=== PATIENT | male | born 1940 | race Caucasian/White ===

== ENCOUNTER 2023-06-21 01:36 | Inpatient (IN) | payer MEDICARE, SELFPAY ==
[2023-06-20 21:12] VITALS: BP 111/63
[2023-06-20 21:18] VITALS: BMI 23.0
[2023-06-20 22:00] VITALS: BP 122/64
[2023-06-20 22:27] LABS: % Basophils 0.5 % (0-2); % Eosinophils 0.9 % (0-6); % Lymphocytes 9.4 % (20.5-51.1); % Monocytes 4.9 % (1.7-9.3); % Neutrophils 83.3 % (42.2-75.2); Absolute Basophils 0.1 10^3/uL (0-0.2); Absolute Eosinophils 0.1 10^3/uL (0-0.7); Absolute Immature Granulocytes 0.1 10^3/uL (0-0.05); Absolute Lymphocytes 1.4 10^3/uL (1.2-3.4); Absolute Monocytes 0.7 10^3/uL (0.1-0.6); Hemoglobin 8.4 g/dL (13.0-18.0); Mean Corpuscular Hgb 28.4 pg (27.0-31.0); Mean Corpuscular Volume 81.1 fL (80.0-94.0); Nucleated Red Blood Cells % 0.1 % (-); Platelet Count 110 10^3/uL (130-400); Red Blood Cell Count 2.96 10^6/uL (4.70-6.10); Red Cell Dist. Width 17.1 % (11.5-14.5); White Blood Cell Count 14.4 10^3/uL (4.8-10.8)
[2023-06-20 22:49] LABS: ALT (SGPT) 27 U/L (0-50); AST (SGOT) 38 U/L (17-59); Alkaline Phosphatase 93 U/L (38-126); Blood Urea Nitrogen 95 mg/dl (9-20); Calcium 9.3 mg/dl (8.4-10.2); Carbon Dioxide 14 mmol/L (22-30); Chloride 100 mmol/L (98-107); Estimated Creatinine Clearance 16 ml/min; Glucose 128 mg/dl (70-99); Magnesium 2.8 mg/dl (1.6-2.3); Sodium 135 mmol/L (135-145); Total Protein 6.2 g/dl (6.3-8.2); eGFR 15.63
[2023-06-20 23:00] VITALS: BP 113/55
--- NOTE | 2023-06-20 23:19 | ED.GENMED ---
History of Present Illness
General
Chief Complaint: Weakness
Source: patient and family (Daughter)
Exam Limitations: none
Time Seen by Provider: 06/20/23 21:33
Nursing documentation reviewed up to this point in time: agreed with
Travel History
Have you had any contact with someone who has COVID-19?: No
Do you have any symptoms of coronavirus? Fever > 100 degrees, chills, cough, shortness of breath, sore throat, loss of taste or smell, muscle aches, or headache?: No
History of Present Illness
History of Present Illness:
83-year-old male with extensive medical history as documented recent admission for sepsis secondary to pneumonia who presents to the emergency room for evaluation of abdominal pain, weakness, rectal bleeding. Patient was seen earlier today for
lower abdominal discomfort and constipation. He was found to have a fecal impaction on exam and was disimpacted and then treated with an enema. There was some scant blood mixed with the stool and he was disimpacted but no heavy bleeding. He was
discharged on bowel regimen. He says that when he went home he noticed he was continue to have some leakage of stool and scant amount of blood from his rectum. He says that he has been feeling very weak and shaky. He says that he is still having
some lower abdominal pain on the left side. He came back to the emergency room to be assessed. Has not had any nausea or vomiting. No chest pain or shortness of breath, no palpitations. No lightheadedness. He has not had any fevers. He is on
Coumadin.
Past History
Past History
ED Past Medical History: Arrthythmia (Atrial fibrillation), CAD, Cancer (CLL ( Lymphocytic Leukemia)), COPD, HTN, Hypercholesterolemia, NIDDM, CA, Renal failure and Other (Anemia, PNA, Hernia, Bleeding gums, PNA)
ED Past Surgical History: Cardiac (Stents X2)
Social History
Tobacco: Former smoker
Alcohol: None
Drug: None
Personal:
Living: with family
Employment: Not employed
Family History
Family History: CAD
Review of Systems
Review of Systems
All Other Systems: ROS reviewed and negative except as documented in HPI and ROS
Constitutional: Reports fatigue; Denies fever or chills
Respiratory: Denies cough or trouble breathing
Cardiac: Denies chest pain, palpitations or syncope
ABD/GI: Reports abdominal pain and bloody stools (Small amount of blood in stool leaking from rectum); Denies nausea, vomiting or diarrhea
: Denies flank pain
Musculoskeletal: Denies neck pain or back pain
Neurological: Reports weakness (Generalized weakness); Denies headache or numbness
Phy Exam
Physical Exam
Physical Exam:
General: Awake, alert, oriented x3
Head: Normocephalic, atraumatic
Eyes: Conjunctiva normal
Throat: Airway intact, handling secretions
Neck: Trachea midline, supple without meningismus
Lungs: Clear to auscultation bilaterally, no wheezing, rales, rhonchi
Heart: Regular rate and rhythm, no murmurs, gallops, or rubs
Abd: Soft, non distended, tender to palpation left lower quadrant
Rectal: Patient has a stage II sacral decubitus wound with no signs of infection; he has brown stool mixed with some scant amount of red blood in the rectal vault
Neuro: Generally weak but no focal motor or sensory deficits; no gross cranial nerve deficits, speech is fluid with no dysarthria or aphasia
Skin: Sacral wound as above
Extremities: No edema in extremities, warm and well-perfused
Scores
Heart Failure Risk
Heart Failure Risk Score: Not Applicable
Heart Score for Chest Pain Patients
STEMI patient?: Not applicable
Withdrawal Assessment of Alcohol
Withdrawal Assessment Completed?: Not applicable
Course
Orders/Labs/Results
Orders:
Orders
06/20/23 22:20
Complete Blood Count/With Diff Urgent
Comprehensive Metabolic Panel Urgent
Magnesium Urgent
06/20/23 23:02
Electrocardiogram (*1) Urgent
Reason for Study: Fatigue / Weakness
EKG- Treatment ONCE
06/20/23 23:05
CT Abd/pel Without Iv Or Oral Urgent
Comment:
Reason For Exam: LLQ pain
0.9% Sodium Chloride 1000 ml [Nss] 1,000 ml IV BOLUS
06/20/23 23:36
Prothrombin Time Urgent
06/21/23 00:05
CefTRIAXone [Rocephin] 1,000 mg IV NOW STA
MetroNIDAZOLE 500 MG/100 ML [Flagyl 500 mg] 100 ml IV NOW
06/21/23 00:15
Blood Culture Q30M
GERALD Source: Blood/Venous
Specimen Description:
06/21/23 00:45
Blood Culture Q30M
GERALD Source: Blood/Venous
Specimen Description:
Abnormal Lab Results
06/20/23 06/20/23
22:20 23:36
WBC 14.4 H 10^3/uL
(4.8-10.8)
RBC 2.96 L 10^6/uL
(4.70-6.10)
Hgb 8.4 L g/dL
(13.0-18.0)
Hct 24.0 L %
(39.0-52.0)
RDW 17.1 H %
(11.5-14.5)
Plt Count 110 L 10^3/uL
(130-400)
Abs Immat Gran (auto) 0.1 H 10^3/uL
(0-0.05)
Absolute Neuts (auto) 12.0 H 10^3/uL
(1.4-6.5)
Absolute Monos (auto) 0.7 H 10^3/uL
(0.1-0.6)
Immature Gran % 1.0 H %
(0-0.5)
Neutrophils % 83.3 H %
(42.2-75.2)
Lymphocytes % 9.4 L %
(20.5-51.1)
PT 31.0 H Sec
(11.4-14.6)
Carbon Dioxide 14 L* mmol/L
(22-30)
BUN 95 H mg/dl
(9-20)
Creatinine 3.7 H mg/dL
(0.7-1.3)
Glucose 128 H mg/dl
(70-99)
Magnesium 2.8 H mg/dl
(1.6-2.3)
Total Protein 6.2 L g/dl
(6.3-8.2)
06/20/23 22:20
06/20/23 22:20
Vital Signs
Initial and Last Documented VS:
Initial Vital Signs
Temp Pulse Resp BP Pulse Ox
37.3 C 82 15 111/63 96
06/20/23 21:12 06/20/23 21:12 06/20/23 21:12 06/20/23 21:12 06/20/23 21:12
Last Documented Vital Signs
Temp Pulse Resp BP Pulse Ox
37.3 C 82 22 113/55 95
06/20/23 21:12 06/20/23 23:15 06/20/23 23:15 06/20/23 23:00 06/20/23 23:15
MDM/Problems Addressed
Differential Diagnosis Includes:
Differential diagnosis for generalized weakness is wide includes in this case includes but not limited to: electrolyte derangement/dehydration, vagal stimulation related to disimpaction, infection such as diverticulitis or UTI, anemia/GI bleeding
MDM/Problems Addressed:
83-year-old male presents for evaluation of generalized weakness and shakiness continued leakage of stool scant amount of blood from rectum after disimpaction today. He is still having some left lower quadrant abdominal pain as well. Vital signs
here within normal limits. Exam as above. Plan to place an IV check labs including CBC and a CMP, coags, type and screen. Will check CT of the abdomen pelvis. Check an EKG. Provide fluids. Monitor closely reassess after the above.
Initial labs reviewed: CBC shows leukocytosis to 14 increased from earlier today. Hemoglobin 8.4 stable. CMP shows metabolic acidosis with a bicarb of 14 possibly related to GI losses he has been having diarrhea/loose stools since disimpaction,
also some element of uremia. Creatinine 3.7 which is increased from baseline. Awaiting results of CT.
CT shows sigmoid colitis�presumably stercoral colitis. Given his leukocytosis and weakness will cover with Rocephin and Flagyl. Will admit for colitis, GER, metabolic acidosis. Discussed with hospitalist for admission.
Chronic conditions affecting care:
A-fib on Coumadin which complicates rectal bleed
*Radiology
Radiology exam reviewed: radiology read reviewed
*Pulse Oximetry
Patient hypoxic: no
*EKG
Interpreted by ED Provider?: Yes
Comparison EKG: no changes
Heart Rate: 81
Rate: normal
Rhythm: sinus
Lawrence: normal axis
Interval: normal interval
QRS Pattern: right bundle branch block
Ischemia: no ischemia
*Critical Care Note
Total Time (30-74mins, 75-104mins- exclusive of procedures): Not Applicable
Data Reviewed
Review of Other/Old Records Reveals: Labs and Records
Source: patient, records and family (Daughter)
Patient Management
Discussion with other providers: Hospitalist (Discussed with hospitalist)
Escalation/DeEscalation of care consider admission/obs:
Admission indicated
ED Attending Note
-
Portions of this chart may have been created with voice recognition software.� Occasional wrong word or��sound alike� substitutions may have occurred due to the inherent limitations of voice recognition software.
Discharge Plan
Departure
Patient Disposition: Admit
Date of Disposition: 06/21/23
Time of Disposition: 00:06
Admit to doctor: Gianni
Presentation/result/management discussed w/ accepting MD/DO: Hospitalist
Discharge Problem:
Acute kidney injury, Metabolic acidosis, Stercoral colitis
Prescriptions:
No Action
ipratropium-albuterol 3 ML solution for nebulization
3 ml inhalation R BID PRN (Reason: Lung/Breathing Issues)
mupirocin 1 APPLIC ointment
1 applic topical DAILYPRN PRN (Reason: scalp and cheek )
Patient Comments:
Apply to top of scalp
multivitamin with folic acid [Tab-A-Gualberto] 1 TABLET tablet
1 tab PO DAILY
guaifenesin 400 MG tablet
600 mg PO BID
acetaminophen [Tylenol Extra Strength] 500 MG tablet
1,000 mg PO Q6HPRN PRN (Reason: mild pain)
rosuvastatin 5 MG tablet
5 mg PO HS
nitroglycerin [Nitro-Dur] 0.6 mg/hr Patch 24 Hour
1 patch TRANSDERMAL DAILY Qty: 0
ferrous sulfate 325 mg (65 mg iron) Tablet
325 mg PO QPM Qty: 0
gabapentin 100 mg Capsule
100 mg PO BID
finasteride 5 mg Tablet
5 mg PO QPM
febuxostat 40 mg Tablet
40 mg PO DAILY
metoprolol succinate 25 mg Tablet Extended Release 24 Hr
25 mg PO DAILY Qty: 30 0RF
dapagliflozin propanediol [Farxiga] 5 mg Tablet
5 mg PO DAILY Qty: 30 0RF
amlodipine 10 mg Tablet
10 mg PO DAILY Qty: 30 0RF
budesonide [Pulmicort] 0.5 mg/2 mL Suspension For Nebulization
0.5 mg INHALATION DAILY PRN (Reason: Lung/Breathing Issues)
amiodarone 200 mg tablet
200 mg PO DAILY Qty: 30 0RF
Patient Comments:
06/20/2023: Pt states he hasnt started this yet.
furosemide [Lasix] 40 mg tablet
40 mg PO DAILY Qty: 30 0RF
nitroglycerin 0.3 mg tablet, sublingual
0.3 mg sublingual [id number] PRN (Reason: chest pain)
aspirin 81 mg Tablet,Delayed Release (Dr/Ec)
81 mg PO DAILY
warfarin 3 mg Tablet
3 mg PO QPM
Rx Instructions:
taken w/ 0.5mg = 3.5mg
metoprolol succinate 25 mg tablet extended release 24 hr
12.5 mg PO HS
warfarin 1 mg Tablet
0.5 mg PO QPM
Rx Instructions:
taken w/ 3mg = 3.5mg
colchicine 0.6 mg Tablet
0.6 mg PO DAILY PRN (Reason: gout)
Jakafi 20 mg tablet
20 mg PO DAILY
Referrals:
Rob Santos MD [Family Provider] -
Interventions
Interventions:
*General Assessment Last Done: 06/20/23 21:18
ED- Fall Risk Assessment Last Done: 06/20/23 21:18
*ED COVID-19 Vaccine History Last Done: 06/20/23 21:18
ED- Cardiac Assessment Last Done: 06/20/23 21:18
ED- Neurological Assessment Last Done: 06/20/23 21:18
ED- Pulmonary Assessment Last Done: 06/20/23 21:18
[2023-06-20] MEDS: NSS 1000 IV (23:22)
[2023-06-20 23:56] LABS: INR 2.92
[2023-06-21] VITALS (13 sets, daily range): BP systolic 91–123; BP diastolic 46–77; PULSE 66–68; O2SAT 94–96; BMI 21.7
--- NOTE | 2023-06-21 00:21 | HPS.HSE ---
Family Physician
-
Family Physician: Rob Santos
Chief Complaint
-
abdominal pain
History of Present Illness
Mr. Enrique Matthews is a 83 yo man with hx CLL, CKD, ischemic cardiomyopathy, HFpEF, paroxysmal afib on coumadin, BPH, recent admission 06/02/23-06/13/23 for sepsis secondary to multifocal pneumonia, ER visit earlier today for constipation s/p
disimpaction and enema returns to the ER this evening for abdominal pain, weakness and small amount of BRBPR.
Patient states he had abdominal pain this morning relieved by disimpaction. He went home post ER and had continual leakage. He also felt shakey. He did not eat a lot today because he was fasting for AM labs. He states he tried to stay hydrated.
No nausea/vomiting. No diarrhea. Currently denies abdominal pain.
No fevers/chills. + chronic chest pain with exertion (known residual CAD). No LE swelling. He does not weight himself daily.
Medical History
Past Medical History
Past Medical History: Reports Other (hypertension, hyperlipidemia, diabetes mellitus type 2, atrial fibrillation, CLL, IgG deficiency, CAD, polycythemia vera, BPH, ABELARDO, CKD, myelofibrosis, gout, COPD, monoclonal gammopathy of uncertain significance,
anemia, history hematuria in the past, history of cognitive decline,)
Past Surgical History: Reports None (Recently)
Social History
Tobacco: Non-smoker
Alcohol: None
Drug: None
Family History
Family History: Other (Premature CAD in his mother)
Allergies / Home Medications
Allergies reflects when Allergies were last updated in [employer].
Home Medications with original date entered in [employer]
Allergy/Medication List:
Allergies
Allergy/AdvReac Type Severity Reaction Status Date / Time
atorvastatin Allergy ? M-S pain Verified 06/20/23 12:01
immune globulin,gamma (IgG) Allergy Anaphylaxis Verified 06/20/23 12:01
human
prednisone Allergy Unknown Verified 06/20/23 12:01
Home Medications
ipratropium 0.5 mg-albuterol 3 mg (2.5 mg base)/3 mL nebulization soln 3 ml inhalation R BID PRN Lung/Breathing Issues 10/25/16
multivitamin with folic acid 400 mcg tablet (Tab-A-Gualberto) 1 tab PO DAILY Supplement 08/08/17
mupirocin 2 % topical ointment 1 applic topical DAILYPRN PRN scalp and cheek 08/08/17
guaifenesin 400 mg tablet 600 mg PO BID Congestion 09/26/17
acetaminophen 500 mg tablet (Tylenol Extra Strength) 1,000 mg PO Q6HPRN PRN mild pain 07/09/19
rosuvastatin 5 mg tablet 5 mg PO HS High Cholesterol 07/09/19
febuxostat 40 mg tablet 40 mg PO DAILY uric acid 04/29/23
ferrous sulfate 325 mg (65 mg iron) tablet 325 mg PO QPM Supplement ##0 04/29/23
finasteride 5 mg tablet 5 mg PO QPM Fluid Retention/Swelling 04/29/23
gabapentin 100 mg capsule 100 mg PO BID Pain 04/29/23
nitroglycerin 0.6 mg/hr transdermal 24 hour patch (Nitro-Dur) 1 patch transdermal DAILY Heart Disease/Condition ##0 04/29/23
amlodipine 10 mg tablet 10 mg PO DAILY #30 tabs 05/21/23
dapagliflozin propanediol 5 mg tablet (Farxiga) 5 mg PO DAILY #30 tabs 05/21/23
metoprolol succinate 25 mg tablet,extended release 24 hr 25 mg PO DAILY #30 tabs 05/21/23
budesonide 0.5 mg/2 mL suspension for nebulization (Pulmicort) 0.5 mg inhalation DAILY PRN Lung/Breathing Issues 06/02/23
amiodarone 200 mg tablet 200 mg PO DAILY #30 tabs 06/13/23
furosemide 40 mg tablet (Lasix) 40 mg PO DAILY #30 tabs 06/13/23
aspirin 81 mg tablet,delayed release 81 mg PO DAILY 06/20/23
colchicine 0.6 mg tablet 0.6 mg PO DAILY PRN gout 06/20/23
metoprolol succinate 25 mg tablet,extended release 24 hr 12.5 mg PO HS 06/20/23
nitroglycerin 0.3 mg sublingual tablet 0.3 mg sublingual [id number] PRN chest pain 06/20/23
ruxolitinib 20 mg tablet (Jakafi) 20 mg PO DAILY 06/20/23
warfarin 1 mg tablet 0.5 mg PO QPM 06/20/23
warfarin 3 mg tablet 3 mg PO QPM 06/20/23
Review of Systems
-
History Source: Patient
A 12 point ROS was completed and negative except as noted: Yes
Physical Exam
Vital Signs
Vital Signs
Temp Pulse Resp BP Pulse Ox
99.1 F 82 22 113/55 95
06/20/23 21:12 06/20/23 23:15 06/20/23 23:15 06/20/23 23:00 06/20/23 23:15
Physical Exam
General: Appears Chronically Ill and Other (frail appearing, in no acute distress )
HEENT: Moist mucous membranes and PERRLA
Respiratory: Clear; No Wheezes
Cardiac: S1/S2 and Murmur (II/ KERRY)
GI: Soft, Non Tender, Non Distended and Normal Bowel Sounds
Musculoskeletal: No Clubbing, No Cyanosis and Other (Trace pedal edema bilaterally.)
Neuro: AO x 3
Psych: Calm
Laboratory Results
-
06/20/23 22:20
06/20/23 22:20
Laboratory Results
PT 31.0 Sec (11.4-14.6) H 06/20/23 23:36
INR 2.92 06/20/23 23:36
Total Bilirubin 1.0 mg/dl (0.2-1.3) 06/20/23 22:20
AST 38 U/L (17-59) 06/20/23 22:20
ALT 27 U/L (0-50) 06/20/23 22:20
Alkaline Phosphatase 93 U/L (38-126) 06/20/23 22:20
Data Reviewed
-
Diagnostic Radiology: Report Reviewed by me
Lab Data: Labs Reviewed by me
Impression/Plan
-
Mr. Enrique Matthews is a 83 yo man with hx CLL, CKD, ischemic cardiomyopathy, HFpEF, paroxysmal afib on coumadin, BPH, recent admission 06/02/23-06/13/23 for sepsis secondary to multifocal pneumonia, ER visit earlier today for constipation s/p
disimpaction and enema returns to the ER this evening for abdominal pain, weakness and small amount of BRBPR. He is found to have leukocytosis on colitis on CT also with progressive kidney injury.
Triage VS: T 99 P 82 RR 15 BP 111/63 SpO2 96%
LABS: WBC 14.4, Hg 8.4, PLT 110, Na 135, K+ 5.0, CO2 14 AG 21 , Cr 3.7 (was 3.4 earlier today and 2.7 06/13), Mag 2.8, liver enzymes WNL, INR 2.92
Abdomen/Pelvic CT
wall thickening of decompressed distal sigmoid colon with mild adjacent fat straining suggestive of colitis ... mild sigmoid diverticulosis without diverticulitis. mild to moderate stool within the remainder of the colon. no evidence of bowel
obstruction. no free fluid or free air. large renal cyst 2.3 x 2.4 cm increased from prior
MAR: ceftriaxone/flagyl, 1L IVF
Colitis
Leukocytosis
-colitis seen on CT; currently patient without abdominal pain; no diarrhea
-continue IV Ceftriaxone/Flagyl
-low residue diet
Constipation s/p disimpaction and enema earlier today
-resume miralax on DC for constipation treated earlier today
Metabolic Acidosis with Anion Gap 21
Acute on chronic kidney disease
-creatinine seems to be slowly rising over past 2 months (was 1.8 beginning of May)
-volume status difficult. patient likely dehydrated given history
-s/p 1L IVF in ER; continue gentle fluids sodium bicarb overnight and hold [employer] lasix - patient instructed to be vocal if any signs SOB
-renal consult
-hold [employer] colchicine, Farxiga and Febuxostat
Secondary myeloproliferative disorder/polycythemia vera
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
-continue [employer] Jakafi for myelofibrosis
Chronic anemia multifactorial
-receives Epo as outpatient
-if requires transfusion needs irradiated blood products given hx fludarabine 2005
Atrial Fibrillation on coumadin
-continue [employer] coumadin
-[employer] metoprolol, amiodarone
-daily INR
Hx ischemic cardiomyopathy with improvement of EF 50-55%
CAD with hx PCI; know residual CAD with decision made for medical therapy (05/10/23)
BPH
-[employer] finasteride
DM II
-not on home meds
-ISS low
DVT PPx - [employer] coumadin
FULL CODE
76 minutes spent on patient evaluation, medical decision making, coordination of care
[2023-06-21] MEDS: ROCEPHIN 1000 MG IV (00:55)
[2023-06-21 01:10] LABS: Urine Albumin 1+ (Neg - Trace); Urine Bilirubin Negative (Negative); Urine Character Clear (Clear); Urine Color Yellow; Urine Glucose Trace (Negative); Urine Ketone Negative (Negative); Urine Leukocyte Negative (Negative); Urine Nitrite Negative (Negative); Urine Occult Blood 1+ (Negative); Urine Specific Gravity 1.015 (<1.030); Urine Urobilinogen Negative (Neg - 1+)
[2023-06-21] MEDS: FLAGYL 500 MG 100 IV ×3 (01:10→15:41)
[2023-06-21 01:25] LABS: Urine Hyaline Cast 0-2 /LPF (0-2); Urine Squamous Cell 0-2 /LPF (Few)
[2023-06-21 01:26] LABS: Urine Bacteria Moderate (Negative); Urine White Cell 0-2 /HPF (0-5)
[2023-06-21 02:05] LABS: Lactic Acid 0.7 mmol/L (0.7-2.0)
[2023-06-21 04:41] LABS: % Basophils 0.4 % (0-2); % Eosinophils 0.6 % (0-6); % Immature Granulocytes 1.3 % (0-0.5); % Lymphocytes 10.6 % (20.5-51.1); % Neutrophils 83.1 % (42.2-75.2); Absolute Eosinophils 0.1 10^3/uL (0-0.7); Absolute Immature Granulocytes 0.1 10^3/uL (0-0.05); Absolute Lymphocytes 1.2 10^3/uL (1.2-3.4); Absolute Monocytes 0.4 10^3/uL (0.1-0.6); Absolute Neutrophils 9.1 10^3/uL (1.4-6.5); Hematocrit 21.3 % (39.0-52.0); Hemoglobin 7.3 g/dL (13.0-18.0); Mean Corp Hgb Conc. 34.3 g/dL (33.0-37.0); Mean Corpuscular Hgb 27.8 pg (27.0-31.0); Mean Platelet Volume 10.2 fL (7.4-10.4); Nucleated Red Blood Cells % 0 % (-); Platelet Count 91 10^3/uL (130-400); Red Blood Cell Count 2.63 10^6/uL (4.70-6.10); Red Cell Dist. Width 17.1 % (11.5-14.5)
[2023-06-21 04:53] LABS: INR 3.03; PT 31.8 Sec (11.4-14.6)
[2023-06-21 05:12] LABS: Blood Urea Nitrogen 89 mg/dl (9-20); Calcium 8.3 mg/dl (8.4-10.2); Carbon Dioxide 19 mmol/L (22-30); Chloride 108 mmol/L (98-107); Estimated Creatinine Clearance 17 ml/min; Glucose 100 mg/dl (70-99); Potassium 4.9 mmol/L (3.5-5.1); Sodium 135 mmol/L (135-145)
--- NOTE | 2023-06-21 05:16 | PTCARENOTE ---
no delay received. pt transferred to [id number]. aaox3. nsr. vss. labs drawn. bicarb infusing @60cc/hr. call gibbons in reach. will monitor.
[2023-06-21] MEDS: SODIUM BICARBONATE 1150 MEQ IV (06:01)
[2023-06-21 07:05] LABS: Glucose - Point of Care 107 mg/dl (70-99)
[2023-06-21] MEDS: NEURONTIN 100 MG PO ×2 (08:00→20:49)
[2023-06-21] MEDS: NOVOLOG FLEXPEN-LOW RESISTANCE SC ×3 (08:05→17:34)
[2023-06-21] MEDS: TOPROL XL 25 MG PO (08:05)
[2023-06-21] MEDS: PACERONE 200 MG PO (08:06)
[2023-06-21] MEDS: MUCINEX 600 MG PO ×2 (08:06→20:48)
[2023-06-21] MEDS: NITRO-DUR 0.599999999999999978 MG TRANSDERM (08:07)
[2023-06-21] MEDS: NORVASC 10 MG PO (08:07)
[2023-06-21] MEDS: ASPIR LOW (ENTERIC COATED) 81 MG PO (08:07)
[2023-06-21 12:09] LABS: Glucose - Point of Care 135 mg/dl (70-99)
--- NOTE | 2023-06-21 13:28 | CON.MD ---
Consultation - Medical
-
Assessment:
GER on CKD
HAGMA
CLL
ishcemic cardiomyopathy
pAfib (on AC)
BPH
constipation
BRBPR
Plan:
GER improving with fluid administration (bl Cr around 1.8-2.1), now to 3.4.
- most likely in the setting of ?obstruction vs. hemodynamic changes. UA with blood
- workup: bladder scan ordered
- significant proteinuria on labs in outpatient setting, will repeat UPCR now
- continue supporitve management and avoid further nephrotoxic agents
XI was given sodium bicarbonate infusion with improvement. will maintain infusion for now as he still has a significant bicarb defecit
--- NOTE | 2023-06-21 13:51 | W.PN.HOSP.TC ---
Today's Communication/Plan
-
Monitor vital signs and see plan
Monitor INR, decrease Coumadin dose tonight
Monitor hemoglobin
Continue with antibiotics
non billable note
Assessment / Plan
Assessment / Plan
General: Appears Chronically Ill and Other (frail appearing, in no acute distress )
HEENT: Moist mucous membranes and PERRLA
Respiratory: Clear; No Wheezes
Cardiac: S1/S2 and Murmur (II/ KERRY)
GI: Soft, Non Tender, Non Distended and Normal Bowel Sounds
Musculoskeletal: No Clubbing, No Cyanosis and Other (Trace pedal edema bilaterally.)
Neuro: AO x 3
Psych: Calm
Proctitis likely 2/2 constipation
Leukocytosis
-colitis seen on CT; currently patient without abdominal pain; no diarrhea
-continue IV Ceftriaxone/Flagyl
-low residue diet
Constipation s/p disimpaction and enema earlier today
-resume miralax on DC for constipation treated earlier today
Metabolic Acidosis with Anion Gap 21
Acute on chronic kidney disease
-creatinine seems to be slowly rising over past 2 months (was 1.8 beginning of May)
-volume status difficult.� patient likely dehydrated given history
-; continue gentle fluids sodium bicarb and hold [employer] PERSON lasix - patient instructed to be vocal if any signs SOB
-Nephrology following
-hold [employer]ERSON colchicine, Farxiga and Febuxostat
Secondary myeloproliferative disorder/polycythemia vera
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
-continue [employer] Jakafi for myelofibrosis
Chronic anemia multifactorial
-receives Epo as outpatient
-if requires transfusion needs irradiated blood products given hx fludarabine 2005
Atrial Fibrillation on coumadin
-continue [employer] PERSON coumadin
-SPIN[employer] PERSON metoprolol, amiodarone
-daily INR; decrease coumadin to 2mg
Hx ischemic cardiomyopathy with improvement of EF 50-55%
CAD with hx PCI; know residual CAD with decision made for medical therapy (05/10/23)
BPH
-[employer]IN[employer] PERSON finasteride
DM II
-not on home meds
-ISS low
DVT PPx - [employer] PERSON coumadin
FULL CODE
Anticipated Discharge: 24 - 48 hours
Subjective/Interval History
-
Date of Service: June 21, 2023
feeling better
Objective Data
-
Labs:
Laboratory Results
06/21/23
04:27
WBC 11.0 H
Hgb 7.3 L
Hct 21.3 L
Plt Count 91 L
PT 31.8 H
INR 3.03
Sodium 135
Potassium 4.9
Chloride 108 H
Carbon Dioxide 19 L
BUN 89 H
Creatinine 3.4 H
Glucose 100 H
Calcium 8.3 L
Vital Signs:
Vital Signs
Temp Pulse Resp BP Pulse Ox
98.1 F 75 22 106/76 97
06/21/23 12:55 06/21/23 08:05 06/21/23 04:00 06/21/23 08:05 06/21/23 04:00
I&O
06/20/23 06/21/23 06/22/23
06:59 06:59 06:59
Intake Total 100 / 100
Output Total 225 / 225 100 / 100
Balance -225 / -225 0 / 0
[2023-06-21] MEDS: MIRALAX 17 GRAMS PO (15:41)
--- NOTE | 2023-06-21 15:49 | CM ---
Patient with Dx Proctitis likely 2/2 constipation, GER. Room air. Receiving sodium bicarb infusion, IV Ceftriaxone/Flagyl. PT recommends HH. OT recommends skilled rehab.
Met with patient who resides with his in a 2 story house with 2 ROBINSON.
The patient was Independent for ADLs/ambulation.
DME - he uses none however RW, SPC, crutches & w/c are available
Current with [facility] for PT
No prior SNF.
PCP - Rob Santos
Pharmacy - [facility]
Patient wishes to have [facility] again for PT. Referral to [facility] Liaison.
Plan home with resumption [facility].
[2023-06-21 16:17] LABS: Protein/creatinine Ratio 0.8; Urine Protein 67 mg/dl
[2023-06-21 16:57] LABS: Glucose - Point of Care 145 mg/dl (70-99)
[2023-06-21] MEDS: PROSCAR 5 MG PO (17:34)
[2023-06-21] MEDS: COUMADIN 2 MG PO (17:34)
[2023-06-21] MEDS: COLACE 100 MG PO (20:48)
[2023-06-21] MEDS: TOPROL XL 12.5 MG PO (20:55)
[2023-06-21] MEDS: CRESTOR 5 MG PO (20:56)
--- NOTE | 2023-06-21 21:47 | PTCARENOTE ---
Received pt at change of shift with O2 sat 87-89% on room air. Placed on NC O2 at 2 L and O2 sat improved to 95%. L arm IV site was not working, IV team notified and came up and placed a new IV. Flagyl dose re-timed due to IV not working. Pt has
no complaints presently.
[2023-06-21 21:59] LABS: Glucose - Point of Care 143 mg/dl (70-99)
[2023-06-21 22:45] LABS: Hematocrit 18.2 % (39.0-52.0); Hemoglobin 6.3 g/dL (13.0-18.0)
[2023-06-21] MEDS: FLAGYL 500 MG IV (23:14)
--- NOTE | 2023-06-21 23:36 | PTCARENOTE ---
Hgb -6.3 and Hct 18.2, called to PADMA Sidhu. Blood brawn for Type and cross.
[2023-06-22] VITALS (20 sets, daily range): BP systolic 99–127; BP diastolic 41–72; BMI 21.9
[2023-06-22] MEDS: STERILE WATER FOR INJECTION 10 ML IV (00:49)
[2023-06-22] MEDS: ROCEPHIN 1000 MG IV (00:50)
--- NOTE | 2023-06-22 01:59 | PTCARENOTE ---
Noted that vital signs did not transfer from monitor to pt's chart. Manually entered Vital signs from 06/21/23 11:12 to 06/22/23 00:00. Now monitor will record pt's vital signs accurately. Awaiting blood warmer to give pt blood.
[2023-06-22] MEDS: SODIUM BICARBONATE 1150 MEQ IV (03:40)
--- NOTE | 2023-06-22 07:32 | PTCARENOTE ---
Blood ordered and hung with blood warmer. Vital signs taken more often due to the blood takes longer than the first 15 minutes to go through the warmer and get to the patient. Monitored patient for 25 minutes and vital signs were stable and pt had
no complaints. Increased O2 to 3 liters NC due to O2 sat 88% on 2 liters.
[2023-06-22 07:43] LABS: Glucose - Point of Care 122 mg/dl (70-99)
[2023-06-22] MEDS: NITRO-DUR 0.599999999999999978 MG TRANSDERM (08:29)
[2023-06-22] MEDS: MIRALAX 17 GRAMS PO (08:29)
[2023-06-22] MEDS: TOPROL XL 25 MG PO (08:31)
[2023-06-22] MEDS: MUCINEX 600 MG PO ×2 (08:31→19:45)
[2023-06-22] MEDS: ASPIR LOW (ENTERIC COATED) 81 MG PO (08:31)
[2023-06-22] MEDS: NEURONTIN 100 MG PO ×2 (08:31→19:46)
[2023-06-22] MEDS: NORVASC 10 MG PO (08:32)
[2023-06-22] MEDS: PACERONE 200 MG PO (08:32)
[2023-06-22] MEDS: COLACE 100 MG PO ×2 (08:32→19:46)
[2023-06-22] MEDS: NOVOLOG FLEXPEN-LOW RESISTANCE SC ×2 (08:34→17:42)
[2023-06-22] MEDS: FLAGYL 500 MG 100 IV ×2 (09:23→16:44)
--- NOTE | 2023-06-22 09:39 | PTCARENOTE ---
Blood transfused as ordered without incident. Pt voiding. very flat and withdrawn
[2023-06-22 12:06] LABS: Glucose - Point of Care 202 mg/dl (70-99)
[2023-06-22 12:13] LABS: % Basophils 0.5 % (0-2); % Eosinophils 1.8 % (0-6); % Immature Granulocytes 0.5 % (0-0.5); % Lymphocytes 10.1 % (20.5-51.1); % Monocytes 5.2 % (1.7-9.3); % Neutrophils 81.9 % (42.2-75.2); Absolute Eosinophils 0.2 10^3/uL (0-0.7); Absolute Lymphocytes 0.9 10^3/uL (1.2-3.4); Absolute Monocytes 0.4 10^3/uL (0.1-0.6); Mean Corp Hgb Conc. 34.2 g/dL (33.0-37.0); Mean Corpuscular Hgb 27.9 pg (27.0-31.0); Mean Corpuscular Volume 81.7 fL (80.0-94.0); Mean Platelet Volume 9.7 fL (7.4-10.4); Nucleated Red Blood Cells % 0 % (-); Platelet Count 74 10^3/uL (130-400); Red Cell Dist. Width 16.6 % (11.5-14.5); White Blood Cell Count 8.5 10^3/uL (4.8-10.8)
[2023-06-22 12:24] LABS: INR 2.43; PT 26.8 Sec (11.4-14.6)
[2023-06-22 12:28] LABS: Hemoglobin 6.7 g/dL (13.0-18.0)
[2023-06-22 12:29] LABS: Hematocrit 19.6 % (39.0-52.0)
[2023-06-22] MEDS: NOVOLOG FLEXPEN-LOW RESISTANCE 2 UNITS SC (12:32)
--- NOTE | 2023-06-22 12:36 | W.PN.NEPH.PH ---
Today's Communication / Plan
-
- stop sodium bicarb gtt
- follow up BMPs
Assessment/Plan
-
Assessment:
GER on CKD
HAGMA
CLL
ishcemic cardiomyopathy
pAfib (on AC)
BPH
constipation
BRBPR
Plan:
GER improving with fluid administration (bl Cr around 1.8-2.1), now to 3.4.
- most likely in the setting of ?obstruction vs. hemodynamic changes leading to ATN. UA with blood
- workup: bladder scan ordered, retaining <250cc but carbajal now in
- significant proteinuria on labs in outpatient setting, repeat UPCR with macroalbuminuria.
- continue supporitve management and avoid further nephrotoxic agents
- continue to trend BMP after blood administration today
XI was given sodium bicarbonate infusion with improvement. will hold sodium bicarb today
-
-
Date of Service: June 22, 2023
CC / HPI / ROS
-
Chief Complaint:
GER
History of Present Illness:
proctitis
myeloproliferative disorder
GER
HAGMA
chronic anemia
Afib
Review of Systems:
urinating okay but slight amount of retention noted, carbajal in place
follow up BMP today
stop sodium bicarb gtt
Labs
-
Labs:
WBC 8.5 10^3/uL (4.8-10.8) 06/22/23 12:04
RBC 2.40 10^6/uL (4.70-6.10) L 06/22/23 12:04
Hgb 6.7 g/dL (13.0-18.0) L* 06/22/23 12:04
Hct 19.6 % (39.0-52.0) L* 06/22/23 12:04
Plt Count 74 10^3/uL (130-400) L 06/22/23 12:04
eGFR 17.30 06/21/23 04:27
Albumin 4.0 g/dl (3.5-5.0) 06/20/23 22:20
Physical Exam
-
Vital Signs:
Vital Signs
Temp Pulse Resp BP Pulse Ox
98.2 F 65 21 107/41 92
06/22/23 11:02 06/22/23 09:45 06/22/23 09:45 06/22/23 09:16 06/22/23 09:45
Cardiovascular:: Regular rate and rhythm
Respiratory:: Bilateral: CTA
Lung Excursion:: Normal
Abdomen:: Nontender and Soft
Bowel Sounds:: Normal
Extremity Edema:: None: Bilateral:
Carbajal Catheter: Yes
[2023-06-22 12:37] LABS: Blood Urea Nitrogen 68 mg/dl (9-20); Calcium 7.7 mg/dl (8.4-10.2); Carbon Dioxide 25 mmol/L (22-30); Chloride 104 mmol/L (98-107); Estimated Creatinine Clearance 21 ml/min; Glucose 155 mg/dl (70-99); Potassium 4.1 mmol/L (3.5-5.1); Sodium 132 mmol/L (135-145); eGFR 21.84
--- NOTE | 2023-06-22 13:31 | W.PN.HOSP.TC ---
Today's Communication/Plan
-
Did monitor vital signs and see plan
Transfuse another unit today, need irradiated blood product
Hematology evaluation
Check reticulocyte, LDH, haptoglobin
cw abx
Assessment / Plan
Assessment / Plan
General: Appears Chronically Ill and Other (frail appearing, in no acute distress )
HEENT: Moist mucous membranes and PERRLA
Respiratory: Clear; No Wheezes
Cardiac: S1/S2 and Murmur (II/ KERRY)
GI: Soft, Non Tender, Non Distended and Normal Bowel Sounds
Musculoskeletal: No Clubbing, No Cyanosis and Other (Trace pedal edema bilaterally.)
Neuro: AO x 3
Psych: Calm
Proctitis likely 2/2 constipation
Leukocytosis
-colitis seen on CT; currently patient without abdominal pain; no diarrhea
-continue IV Ceftriaxone/Flagyl
-low residue diet
Constipation s/p disimpaction and enema earlier today
-resume miralax on DC for constipation treated earlier today
Metabolic Acidosis
Acute on chronic kidney disease
-creatinine seems to be slowly rising over past 2 months (was 1.8 beginning of May)
- hold [employer] lasix - patient instructed to be vocal if any signs SOB
-Nephrology following
Creatinine slowly improving. Bicarb improved; now off bicarb gtt
-hold [employer] colchicine, Farxiga and Febuxostat
Secondary myeloproliferative disorder/polycythemia vera
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
-continue [employer] Jakafi for myelofibrosis
Acute on Chronic anemia
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 Aleixs outpatient. 1 unit PRBC 06/21, need irradiated blood product. Give another unit 06/22 for hemoglobin 6.7. consult hematology. order retic,LDH,haptoglobin
-receives Epo as outpatient
-if requires transfusion needs irradiated blood products given hx fludarabine 2005
Atrial Fibrillation on coumadin
-continue [employer] coumadin
-cw amiodarone, hold metoprolol
-daily INR; decrease coumadin to 2mg
Hx ischemic cardiomyopathy with improvement of EF 50-55%
CAD with hx PCI; know residual CAD with decision made for medical therapy (05/10/23)
BPH
-[employer] finasteride
DM II
-not on home meds
-ISS low
DVT PPx - [employer] coumadin
FULL CODE
I spent a total of 54 minutes with the patient or on the floor. More than 50% of this time involved counseling and coordination of care.
Anticipated Discharge: > 48 hours
Subjective/Interval History
-
Date of Service: June 22, 2023
denies pain
Objective Data
-
Labs:
Laboratory Results
06/22/23
12:04
WBC 8.5
Hgb 6.7 L*
Hct 19.6 L*
Plt Count 74 L
PT 26.8 H
INR 2.43
Sodium 132 L
Potassium 4.1
Chloride 104
Carbon Dioxide 25
BUN 68 H
Creatinine 2.8 H
Glucose 155 H
Calcium 7.7 L
Vital Signs:
Vital Signs
Temp Pulse Resp BP Pulse Ox
98.2 F 65 21 107/41 92
06/22/23 11:02 06/22/23 09:45 06/22/23 09:45 06/22/23 09:16 06/22/23 09:45
I&O
06/21/23 06/22/23 06/23/23
06:59 06:59 06:59
Intake Total 900 / 900 250 / 250
Output Total 225 / 225 825 / 825 250 / 250
Balance -225 / -225 75 / 75 0 / 0
[2023-06-22] MEDS: PROTONIX 40 MG PO (14:47)
--- NOTE | 2023-06-22 14:59 | PTCARENOTE ---
spoke with Blood bank, blood being ordered from [facility] will be here later t his evening. Pt and aware
--- NOTE | 2023-06-22 15:01 | PTCARENOTE ---
Pt home med sent to pharmacy, some concerns with dosage , pharmacist will reach out to DR Miles. Pt and aware
[2023-06-22] MEDS: COUMADIN 2 MG PO (17:24)
[2023-06-22] MEDS: PROSCAR 5 MG PO (17:24)
[2023-06-22 17:28] LABS: Glucose - Point of Care 134 mg/dl (70-99)
--- NOTE | 2023-06-22 18:02 | PTCARENOTE ---
Pt Bladder scan for 212 sitting on side of bed trying to urinate, incont of urine and BM earlier
[2023-06-22 18:26] LABS: LDH 389 U/L (120-246)
[2023-06-22] MEDS: CRESTOR 5 MG PO (19:46)
[2023-06-22 19:58] LABS: Hemoglobin 7.3 g/dL (13.0-18.0)
[2023-06-22 20:43] LABS: Glucose - Point of Care 257 mg/dl (70-99)
[2023-06-23] VITALS (13 sets, daily range): BP systolic 101–129; BP diastolic 38–63; BMI 22.4
[2023-06-23] MEDS: ROCEPHIN 1000 MG IV (00:47)
[2023-06-23] MEDS: STERILE WATER FOR INJECTION 10 ML IV (00:47)
[2023-06-23] MEDS: FLAGYL 500 MG 100 IV (00:57)
[2023-06-23] MEDS: TYLENOL 650 MG PO ×2 (04:25→17:36)
[2023-06-23 04:41] LABS: % Basophils 0.6 % (0-2); % Eosinophils 1.4 % (0-6); % Immature Granulocytes 0.7 % (0-0.5); % Lymphocytes 11.8 % (20.5-51.1); % Monocytes 5.3 % (1.7-9.3); % Neutrophils 80.2 % (42.2-75.2); Absolute Basophils 0.1 10^3/uL (0-0.2); Absolute Eosinophils 0.1 10^3/uL (0-0.7); Absolute Immature Granulocytes 0.1 10^3/uL (0-0.05); Absolute Lymphocytes 1.1 10^3/uL (1.2-3.4); Absolute Monocytes 0.5 10^3/uL (0.1-0.6); Absolute Neutrophils 7.3 10^3/uL (1.4-6.5); Hematocrit 22.4 % (39.0-52.0); Hemoglobin 7.7 g/dL (13.0-18.0); Mean Corp Hgb Conc. 34.4 g/dL (33.0-37.0); Mean Corpuscular Hgb 28.2 pg (27.0-31.0); Mean Corpuscular Volume 82.1 fL (80.0-94.0); Mean Platelet Volume 9.7 fL (7.4-10.4); Nucleated Red Blood Cells % 0 % (-); Platelet Count 77 10^3/uL (130-400); Red Blood Cell Count 2.73 10^6/uL (4.70-6.10); Red Cell Dist. Width 16.5 % (11.5-14.5); White Blood Cell Count 9.1 10^3/uL (4.8-10.8)
[2023-06-23 04:44] LABS: INR 2.13; PT 24.2 Sec (11.4-14.6)
[2023-06-23 04:48] LABS: Blood Urea Nitrogen 60 mg/dl (9-20); Calcium 7.6 mg/dl (8.4-10.2); Carbon Dioxide 23 mmol/L (22-30); Chloride 106 mmol/L (98-107); Estimated Creatinine Clearance 21 ml/min; Glucose 102 mg/dl (70-99); Potassium 4.1 mmol/L (3.5-5.1); Sodium 134 mmol/L (135-145); eGFR 22.82
--- NOTE | 2023-06-23 07:31 | PTCARENOTE ---
One unit irradiated PRBCs administered overnight through the blood warmer per blood bank. Oral temp up to 101 after warmed blood administration. PRN tylenol given. Am hgb up to 7.7 post transfusion.
[2023-06-23] MEDS: NITRO-DUR 0.599999999999999978 MG TRANSDERM (08:26)
[2023-06-23] MEDS: MIRALAX 17 GRAMS PO (08:26)
[2023-06-23] MEDS: MUCINEX 600 MG PO ×2 (08:27→20:05)
[2023-06-23] MEDS: PROTONIX 40 MG PO (08:27)
[2023-06-23] MEDS: PACERONE 200 MG PO (08:27)
[2023-06-23] MEDS: NORVASC 10 MG PO (08:27)
[2023-06-23] MEDS: ASPIR LOW (ENTERIC COATED) 81 MG PO (08:27)
[2023-06-23] MEDS: NEURONTIN 100 MG PO ×2 (08:28→20:05)
[2023-06-23] MEDS: COLACE 100 MG PO ×2 (08:28→20:05)
[2023-06-23] MEDS: NOVOLOG FLEXPEN-LOW RESISTANCE SC (09:00)
[2023-06-23 09:10] LABS: Glucose - Point of Care 122 mg/dl (70-99)
--- NOTE | 2023-06-23 10:07 | CON.ONC ---
Impression
Impression
- multifocal pneumonia
- colitis
- acute on chronic anemia
- thrombocytopenia
Plan
Plan
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
- re-admission with weakness in setting of likely persistent multifocal pneumonia, possible colitis. CBC shows worsening anemia from baseline 8-9 g/dl to 6.3 g/dl. However hgb on presentation was 8.4 g/dl with drop after IV resuscitation, abx
initiation. CBC also with new thrombocytopenia that developed during last admission, was 119K on presentation with drop to 77K today after IVFs, abx.
- suspect worsening anemia, new thrombocyopenia due to acute infection, fluid administration, abx. Will hold home Jakafi for now with plts < 100K however can resume 15 mg BID once plts > 100K, hgb stable at prior baseline ~ 8.5-9.0.
- pt with hx of cold agglutinin hemolytic anemia in the past. recent titers low positive at 1:64. hemolysis panel ordered however low suspicion for clinically significant active hemolysis with retic 1.0%, LDH mildly high at 389. hapto, T bili
pending. check PTT, PT, fibrinogen.
- CBC daily. transfuse for hgb < 7.0 g/dl, plts < 20K. pRBCs should be warmed due to hx of cold agglutinin as well as irradiated, leukoreduced due to prior fludarabine exposure.
will continue to follow.
Patient History
History of Present Illness
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
afib on coumadin, CKD, recent admission for multifocal PNA who presented to ED 06/20 with abdominal pain, weakness not relieved by dis-impaction in ED earlier that day. CBC on admission showed WBC 14.4, hgb 8.4 g/dl (baseline 8-9 g/dl since november),
plts 110K (usually in normal range with mild drop after last admission). BMp with acute on chronic renal injury with Cr 3.7 that has come down to 2.7 with fluids. he had drop in hgb on 06/21 to 6.7 g/dl and received 2 units pRBCs. hg today 7.7 g/dl,
plts 77 Ct A/P showed circumferential wall thickening of the rectum, with stranding of the perirectal fat, compatible with proctitis. CXR with persistent patchy bilataeral infilterates. Blood and urine cultures negative.
Patient Medication
Medication Instructions Recorded Confirmed Last Taken Type
ipratropium 0.5 mg-albuterol 3 mg 3 ml inhalation R BID PRN 10/25/16 06/20/23 04/29/23 History
(2.5 mg base)/3 mL nebulization Lung/Breathing Issues
soln
multivitamin with folic acid 400 1 tab PO DAILY Supplement 08/08/17 06/20/23 06/20/23 History
mcg tablet (Tab-A-Gualberto)
mupirocin 2 % topical ointment 1 applic topical DAILYPRN PRN 08/08/17 06/20/23 04/29/23 History
scalp and cheek
guaifenesin 400 mg tablet 600 mg PO BID Congestion 09/26/17 06/20/23 06/20/23 History
acetaminophen 500 mg tablet 1,000 mg PO Q6HPRN PRN mild pain 07/09/19 06/20/23 Unknown History
(Tylenol Extra Strength)
rosuvastatin 5 mg tablet 5 mg PO HS High Cholesterol 07/09/19 06/20/23 06/19/23 History
febuxostat 40 mg tablet 40 mg PO DAILY uric acid 04/29/23 06/20/23 06/20/23 History
ferrous sulfate 325 mg (65 mg 325 mg PO QPM Supplement ##0 04/29/23 06/20/23 06/19/23 History
iron) tablet
finasteride 5 mg tablet 5 mg PO QPM BPH 04/29/23 06/20/23 06/19/23 History
gabapentin 100 mg capsule 100 mg PO BID Pain 04/29/23 06/20/23 06/20/23 History
nitroglycerin 0.6 mg/hr 1 patch transdermal DAILY Heart 04/29/23 06/20/23 06/20/23 History
transdermal 24 hour patch Disease/Condition ##0
(Nitro-Dur)
amlodipine 10 mg tablet 10 mg PO DAILY #30 tabs 05/21/23 06/20/23 06/20/23 Rx
metoprolol succinate 25 mg 25 mg PO DAILY #30 tabs 05/21/23 06/20/23 06/20/23 Rx
tablet,extended release 24 hr
budesonide 0.5 mg/2 mL suspension 0.5 mg inhalation DAILY PRN 06/02/23 06/20/23 Unknown History
for nebulization (Pulmicort) Lung/Breathing Issues
amiodarone 200 mg tablet 200 mg PO DAILY #30 tabs 06/13/23 06/20/23 Unknown Rx
aspirin 81 mg tablet,delayed 81 mg PO DAILY 06/20/23 06/20/23 06/20/23 History
release
colchicine 0.6 mg tablet 0.6 mg PO DAILY PRN gout 06/20/23 06/20/23 Unknown History
metoprolol succinate 25 mg 12.5 mg PO HS Heart 06/20/23 06/20/23 06/19/23 History
tablet,extended release 24 hr Disease/Condition
nitroglycerin 0.3 mg sublingual 0.3 mg sublingual [id number] PRN 06/20/23 06/20/23 Unknown History
tablet chest pain
ruxolitinib 20 mg tablet (Jakafi) 20 mg PO DAILY MYELOFIBROSIS 06/20/23 06/20/23 06/20/23 History
warfarin 1 mg tablet 0.5 mg PO QPM Blood Clot 06/20/23 06/20/23 06/19/23 History
Prevention/Tx
warfarin 3 mg tablet 3 mg PO QPM Blood Clot 06/20/23 06/20/23 06/19/23 History
Prevention/Tx
dapagliflozin propanediol 5 mg 5 mg PO DAILY Diabetes 06/22/23 06/20/23 06/20/23 History
tablet (Farxiga)
furosemide 40 mg tablet (Lasix) 40 mg PO DAILY Fluid 06/22/23 06/20/23 06/20/23 History
Retention/Swelling
Active Medications
Generic Name Dose Route Start Last Admin
Trade Name Freq PRN Reason Stop Dose Admin
Acetaminophen 650 mg 06/21/23 03:26 06/23/23 04:25
Acetaminophen 325 Mg Tablet PO 07/19/23 03:25 650 mg
Q4HPRN PRN Administration
mild pain/ROY/temp> 100.4F
Albuterol/Ipratropium 3 ml 06/21/23 03:26
Ipratropium 0.5/Albuterol 3 Mg (3 Ml Ampul) INH 07/19/23 03:25
R BID PRN
Lung/Breathing Issues
Protocol
Amiodarone HCl 200 mg 06/21/23 08:00 06/23/23 08:27
Amiodarone 200 Mg Tablet PO 07/19/23 07:59 200 mg
DAILY SYED Administration
Amlodipine Besylate 10 mg 06/21/23 08:00 06/23/23 08:27
Amlodipine 10 Mg Tablet PO 07/19/23 07:59 10 mg
DAILY SYED Administration
Aspirin 81 mg 06/21/23 08:00 06/23/23 08:27
Aspirin 81 Mg (Enteric Coated) Tablet PO 07/19/23 07:59 81 mg
DAILY SYED Administration
Budesonide 0.5 mg 06/21/23 03:26
Budesonide (Pulmicort Respules) 0.5 Mg/2 Ml INH 07/19/23 03:25
DAILY PRN
Lung/Breathing Issues
Protocol
Dextrose 12.5 grams 06/21/23 03:26
Dextrose 50% (0.5 Grams/Ml) 50 Ml Syringe IV 07/19/23 03:25
[id number] PRN
hypoglycemia
Protocol
Docusate Sodium 100 mg 06/21/23 20:00 06/23/23 08:28
Docusate Sodium 100 Mg Capsule PO 07/19/23 19:59 100 mg
BID SYED Administration
Finasteride 5 mg 06/21/23 18:00 06/22/23 17:24
Finasteride 5 Mg Tablet PO 07/19/23 17:59 5 mg
QPM SYED Administration
Gabapentin 100 mg 06/21/23 08:00 06/23/23 08:28
Gabapentin 100 Mg Capsule PO 07/19/23 07:59 100 mg
BID SYED Administration
Glucagon 1 mg 06/21/23 03:26
Glucagon 1 Mg Vial IM 07/19/23 03:25
PRN PRN
hypoglycemia
Protocol
Guaifenesin 600 mg 06/21/23 08:00 06/23/23 08:27
Guaifenesin 600 Mg Extended Release Tablet PO 07/19/23 07:59 600 mg
BID SYED Administration
Vancomycin HCl 1 each/ Device 0 mls @ 0 mls/hr 06/23/23 10:00
IV
PER PROTOCOL SYED
As Directed
Piperacillin Sod/Tazobactam Sod 3.375 gram in 50 mls @ 100 mls/hr 06/23/23 10:00
Zosyn IV
Q6H SYED
Insulin Aspart 0 units 06/21/23 07:30 06/23/23 09:00
Insulin Aspart Low Resistance 300 Units/3 Ml Pen.Injctr SC 07/19/23 07:29 Not Given
AC SYED
Protocol
Metoprolol Succinate 12.5 mg 06/21/23 22:00 06/21/23 20:55
Metoprolol 12.5 Mg Extended Release Dose (1/2 Of 25 Mg Xl Tablet) PO 07/19/23 21:59 12.5 mg
HS SYED Administration
Metoprolol Succinate 25 mg 06/21/23 08:00 06/22/23 08:31
Metoprolol 25 Mg Extended Release Tablet PO 07/19/23 07:59 25 mg
DAILY SYED Administration
Nitroglycerin 0.6 mg 06/21/23 08:00 06/23/23 08:26
Nitroglycerin 0.6 Mg/Hour Patch TRANSDERM 07/19/23 07:59 0.6 mg
DAILY SYED Administration
Pantoprazole Sodium 40 mg 06/22/23 14:00 06/23/23 08:27
Pantoprazole 40 Mg Delayed Release Tablet PO 07/20/23 13:59 40 mg
DAILY SYED Administration
Polyethylene Glycol 17 grams 06/21/23 14:00 06/23/23 08:26
Polyethylene Glycol Powder 17 Grams Packet PO 07/19/23 13:59 17 grams
DAILY SYED Administration
Rosuvastatin Calcium 5 mg 06/21/23 22:00 06/22/23 19:46
Rosuvastatin (Crestor) 5 Mg Tablet PO 07/19/23 21:59 5 mg
HS SYED Administration
Sodium Chloride 0 flush 06/21/23 04:00
Sodium Chloride 0.9% (Flush) Syringe IV 07/19/23 03:59
PER PROTOCOL SYED
Sterile Water 10 ml 06/22/23 00:00 06/23/23 00:47
Sterile Water For Injection 10 Ml Vial IV 07/20/23 00:00 10 ml
Q24H SYED Administration
Warfarin Sodium 2 mg 06/21/23 18:00 06/22/23 17:24
Warfarin 2 Mg Tablet PO 06/26/23 17:59 2 mg
QPM SYED Administration
Review of Systems
-
History Source: Patient
Constitutional: Reports Fatigue; Denies Fever
Respiratory: Reports Cough and Trouble Breathing
GI: Reports Abdominal Pain, Constipated and Bloody Stools
Neuro: Reports Weakness
Physical Exam
-
General: Well Developed, No Apparent Distress and Appears Chronically Ill
HEENT: Negative Jaundice
Cardiology: Normal Sinus Rhythm
Pulmonary: Rhonchi
GI: Soft; Negative Distended
Musculoskeletal: No Edema
Neurology: Non Focal and No Lateralizing Symptoms
Hematologic / Lymphatic: No Lymphadenopathy
Labs
Lab Results
WBC 9.1 10^3/uL (4.8-10.8) 06/23/23 03:57
RBC 2.73 10^6/uL (4.70-6.10) L 06/23/23 03:57
Hgb 7.7 g/dL (13.0-18.0) L 06/23/23 03:57
Hct 22.4 % (39.0-52.0) L 06/23/23 03:57
MCV 82.1 fL (80.0-94.0) 06/23/23 03:57
MCH 28.2 pg (27.0-31.0) 06/23/23 03:57
MCHC 34.4 g/dL (33.0-37.0) 06/23/23 03:57
RDW 16.5 % (11.5-14.5) H 06/23/23 03:57
Plt Count 77 10^3/uL (130-400) L 06/23/23 03:57
MPV 9.7 fL (7.4-10.4) 06/23/23 03:57
Abs Immat Gran (auto) 0.1 10^3/uL (0-0.05) H 06/23/23 03:57
Absolute Neuts (auto) 7.3 10^3/uL (1.4-6.5) H 06/23/23 03:57
Absolute Lymphs (auto) 1.1 10^3/uL (1.2-3.4) L 06/23/23 03:57
Absolute Monos (auto) 0.5 10^3/uL (0.1-0.6) 06/23/23 03:57
Absolute Eos (auto) 0.1 10^3/uL (0-0.7) 06/23/23 03:57
Absolute Basos (auto) 0.1 10^3/uL (0-0.2) 06/23/23 03:57
Immature Gran % 0.7 % (0-0.5) H 06/23/23 03:57
Neutrophils % 80.2 % (42.2-75.2) H 06/23/23 03:57
Lymphocytes % 11.8 % (20.5-51.1) L 06/23/23 03:57
Monocytes % 5.3 % (1.7-9.3) 06/23/23 03:57
Eosinophils % 1.4 % (0-6) 06/23/23 03:57
Basophils % 0.6 % (0-2) 06/23/23 03:57
Creatinine 2.7 mg/dL (0.7-1.3) H 06/23/23 03:57
Vital Signs
Vital Signs
Temp Pulse Resp BP Pulse Ox
100.6 F H 71 25 106/49 94
06/23/23 03:53 06/23/23 06:00 06/23/23 06:00 06/23/23 06:00 06/23/23 06:00
--- NOTE | 2023-06-23 12:03 | PHA.VAN.IN ---
Assessment
- Assessment
Renal Function: Appears elevated from baseline (2.0-2.07 May 2023)
Maximum Temperature: 101 06/23/23 at 00:59, currently febrile at 100.6
Minimum Temperature: 98.3 06/22/23 at 20:30
Concomitant Antimicrobials: Piperacillin-tazobactam
Plan
- Plan
Initial / Loading Dose: Vancomycin 1500mg x 1 dose
Maintenance Regimen: Dose by levels
Monitoring: Random vancomycin level order for 06/24/23 at 06:00
Pharmacokinetics Vancomycin I
- -
Patient Age: 83
Patient Sex: Male
Vancomycin Day #: 1
Indication: Bacteremia
Requesting Provider: Dr Larry Miles
Pertinent Antimicrobial Allergies:
No antibiotic allergies
Height / Weight:
Height 5 ft 11 in
Actual Weight 72.8 kg
IBW in k.3
Pertinent Past Medical History: CKDIII, DM2, CLL/MGUS
- Vital Signs / Lab Results
Temp Pulse Resp BP Pulse Ox
100.6 F H 79 25 108/44 88
06/23/23 03:53 06/23/23 10:00 06/23/23 10:00 06/23/23 10:00 06/23/23 10:00
Lab Results - Hematology
06/20/23 06/21/23 06/22/23
22:20 04:27 12:04
WBC 14.4 H 11.0 H 8.5
06/23/23
03:57
WBC 9.1
Lab Results - Chemistry
06/20/23 06/21/23 06/22/23
22:20 04:27 12:04
BUN 95 H 89 H 68 H
Creatinine 3.7 H 3.4 H 2.8 H
Estimated Creat Clear 16
Albumin 4.0
06/23/23
03:57
BUN 60 H
Creatinine 2.7 H
Estimated Creat Clear 21
Albumin
06/21/23
00:49
Lactic Acid 0.7
Lab Results - Urine
06/21/23
00:49
Urine Nitrite (Reflex) Negative
Leukocyte Esterase Rfl Negative
Urine WBC (Reflex) 0-2
Ur Squamous Epith Cells 0-2
Urine Bacteria (Reflex) Moderate A
Microbiology Results
06/21/23 00:49 Blood Culture - Preliminary
Blood/Venous No Growth in 48 hours- Final report to follow
06/21/23 00:49 Blood Culture - Preliminary
Blood/Venous No Growth in 48 hours- Final report to follow
06/21/23 00:49 Urine Culture - Final
Urine NO GROWTH
[2023-06-23] MEDS: ZOSYN 50 IV ×2 (12:28→17:37)
[2023-06-23 12:42] LABS: Glucose - Point of Care 274 mg/dl (70-99)
--- NOTE | 2023-06-23 12:59 | W.PN.NEPH.PH ---
Today's Communication / Plan
-
- Cr improving
Assessment/Plan
-
Assessment:
GER on CKD
HAGMA
CLL
ishcemic cardiomyopathy
pAfib (on AC)
BPH
constipation
BRBPR
Plan:
GER improving with fluid administration (bl Cr around 1.8-2.1), now to 2.7
- most likely in the setting of ?obstruction vs. hemodynamic changes leading to ATN. UA with blood
- workup: bladder scan ordered, retaining <250cc.
- significant proteinuria on labs in outpatient setting, repeat UPCR with 0.8g.
- continue supporitve management and avoid further nephrotoxic agents
- encouraged PO intake
- continue to trend BMPs
XI was given sodium bicarbonate infusion with improvement. no need for bicarb today
-
-
Date of Service: June 23, 2023
CC / HPI / ROS
-
Chief Complaint:
GER
History of Present Illness:
proctitis
myeloproliferative disorder
GER
HAGMA
chronic anemia
Afib
Review of Systems:
urinating okay but slight amount of retention noted, carbajal in place
follow up BMP today
stop sodium bicarb gtt
Labs
-
Labs:
WBC 9.1 10^3/uL (4.8-10.8) 06/23/23 03:57
RBC 2.73 10^6/uL (4.70-6.10) L 06/23/23 03:57
Hgb 7.7 g/dL (13.0-18.0) L 06/23/23 03:57
Hct 22.4 % (39.0-52.0) L 06/23/23 03:57
Plt Count 77 10^3/uL (130-400) L 06/23/23 03:57
Sodium 134 mmol/L (135-145) L 06/23/23 03:57
Potassium 4.1 mmol/L (3.5-5.1) 06/23/23 03:57
Chloride 106 mmol/L (98-107) 06/23/23 03:57
Carbon Dioxide 23 mmol/L (22-30) 06/23/23 03:57
BUN 60 mg/dl (9-20) H 06/23/23 03:57
Creatinine 2.7 mg/dL (0.7-1.3) H 06/23/23 03:57
eGFR 22.82 06/23/23 03:57
Glucose 102 mg/dl (70-99) H 06/23/23 03:57
Calcium 7.6 mg/dl (8.4-10.2) L 06/23/23 03:57
Albumin 4.0 g/dl (3.5-5.0) 06/20/23 22:20
Physical Exam
-
Vital Signs:
Vital Signs
Temp Pulse Resp BP Pulse Ox
97.5 F 71 25 105/45 95
06/23/23 07:40 06/23/23 12:00 06/23/23 12:00 06/23/23 12:00 06/23/23 12:00
Cardiovascular:: Regular rate and rhythm
Respiratory:: Bilateral: CTA
Lung Excursion:: Normal
Abdomen:: Nontender and Soft
Bowel Sounds:: Normal
Extremity Edema:: None: Bilateral:
Carbajal Catheter: No
[2023-06-23] MEDS: NOVOLOG FLEXPEN-LOW RESISTANCE 3 UNITS SC (13:05)
[2023-06-23] MEDS: VANCOCIN 300 ML IV (13:05)
[2023-06-23] MEDS: VANCOCIN 300 MG IV (13:05)
--- NOTE | 2023-06-23 13:16 | PTCARENOTE ---
Assumed care of patient at 1100. Pt AA0x3 with no complaints. SR on monitor. Vitals stable. Pt to order lunch. Pt repositioned and ABX hung.
--- NOTE | 2023-06-23 13:19 | W.PN.HOSP.TC ---
Today's Communication/Plan
-
Monitor vital signs and see plan
Brought in antibiotics
Follow fever curve
Monitor hemoglobin
Speech consult
Check COVID, flu
Assessment / Plan
Assessment / Plan
General: Appears Chronically Ill and Other (frail appearing, in no acute distress )
HEENT: Moist mucous membranes and PERRLA
Respiratory: Clear; No Wheezes
Cardiac: S1/S2 and Murmur (II/ KERRY)
GI: Soft, Non Tender, Non Distended and Normal Bowel Sounds
Musculoskeletal: No Clubbing, No Cyanosis and Other (Trace pedal edema bilaterally.)
Neuro: AO x 3
Psych: Calm
Proctitis likely 2/2 constipation
Leukocytosis
-colitis seen on CT; currently patient without abdominal pain; no diarrhea
-continue abx
-low residue diet
Mutifocal PNA
Suspected sepsis(fever, tachypnea)
Acute hypoxic respiratory insufficiency secondary to above
Broaden antibiotics with Vanco and Zosyn
follow fever curve; fever could also be related to transfusion
check blood cxcx
Check COVID,flu
Was recently here with pneumonia. Given these findings we will ask speech to evaluate for possibility of silent aspiration
Secondary myeloproliferative disorder/polycythemia vera
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
Hold Jakafi until platelets less than 100 per hematology.
Acute on Chronic anemia
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 Alexis outpatient. 1 unit PRBC 06/21, need irradiated blood product. Give another unit 06/22 for hemoglobin 6.7. hematology following. hemolysis blood work
pending.
-receives Epo as outpatient
-if requires transfusion needs irradiated blood products given hx fludarabine 2005
Constipation s/p disimpaction and enema on admission
Metabolic Acidosis
Acute on chronic kidney disease
-creatinine seems to be slowly rising over past 2 months (was 1.8 beginning of May)
- hold [employer] lasix - patient instructed to be vocal if any signs SOB
-Nephrology following
Creatinine slowly improving. Bicarb improved; now off bicarb gtt
-hold [employer] colchicine, Farxiga and Febuxostat
Atrial Fibrillation on coumadin
-continue [employer] coumadin
-cw amiodarone, hold metoprolol
-daily INR; decrease coumadin to 2mg
Hx ischemic cardiomyopathy with improvement of EF 50-55%
CAD with hx PCI; know residual CAD with decision made for medical therapy (05/10/23)
BPH
-[employer] finasteride
DM II
-not on home meds
-ISS low
DVT PPx - [employer] coumadin
FULL CODE
I spent a total of 53 minutes with the patient or on the floor. More than 50% of this time involved counseling and coordination of care.
Anticipated Discharge: > 48 hours
Subjective/Interval History
-
Date of Service: June 23, 2023
denies pain
Objective Data
-
Labs:
Laboratory Results
06/23/23 06/23/23
03:57 10:26
WBC 9.1
Hgb 7.7 L
Hct 22.4 L
Plt Count 77 L
PT 24.2 H
INR 2.13
Sodium 134 L
Potassium 4.1
Chloride 106
Carbon Dioxide 23
BUN 60 H
Creatinine 2.7 H
Glucose 102 H
Calcium 7.6 L
Total Bilirubin Pending
Vital Signs:
Vital Signs
Temp Pulse Resp BP Pulse Ox
97.5 F 71 25 105/45 95
06/23/23 07:40 06/23/23 12:00 06/23/23 12:00 06/23/23 12:00 06/23/23 12:00
I&O
06/22/23 06/23/23 06/24/23
06:59 06:59 06:59
Intake Total 900 / 900 450 / 450 4570 / 4570
Output Total 825 / 825 800 / 800 800 / 800
Balance 75 / 75 -350 / -350 3770 / 3770
[2023-06-23 14:00] LABS: COVID-19 Antigen Negative (Negative)
[2023-06-23] MEDS: COUMADIN 2 MG PO (17:37)
[2023-06-23] MEDS: PROSCAR 5 MG PO (17:37)
[2023-06-23 17:46] LABS: Glucose - Point of Care 249 mg/dl (70-99)
[2023-06-23] MEDS: NOVOLOG FLEXPEN-LOW RESISTANCE 2 UNITS SC (17:59)
[2023-06-23 19:06] LABS: Total Bilirubin 0.9 mg/dl (0.2-1.3)
[2023-06-23 19:14] LABS: Fibrinogen 443 MG/DL (199-459)
[2023-06-23 19:31] LABS: D-Dimer 2.17 ug/mlFEU (0.00-0.50)
[2023-06-23] MEDS: CRESTOR 5 MG PO (20:05)
--- NOTE | 2023-06-23 21:39 | PTCARENOTE ---
Received pt at the change of shift alert and oriented and now afebrile. Got him up OOB to the chair for about 10 minutes to fix his bed. He tolerated it well. He complains that his sacral/ anal areal is sore, dressing is intact encourage to lay
on his side to give it tie to heal. Mouth care done and made pt comfortable. Coughing and deep breathing encouraged and done. Blood cultures drawn. Monitor is NSR. call gibbons in reach.
[2023-06-23 21:42] LABS: Glucose - Point of Care 314 mg/dl (70-99)
[2023-06-24] VITALS (15 sets, daily range): BP systolic 89–120; BP diastolic 34–62; O2SAT 96; BMI 22.4
[2023-06-24] MEDS: ZOSYN 50 IV ×4 (00:19→18:22)
[2023-06-24] MEDS: TYLENOL 650 MG PO ×2 (00:26→22:05)
--- NOTE | 2023-06-24 00:36 | PTCARENOTE ---
Pt voids in small amounts, 50-100cc at a time. Just voided 50cc and bladder scanned for 290 in his bladder post void. Pt states, ' I always urinate small amounts'. 'I don't feel like I have to go more'.Explaine purpose of bladder scanning to pt.
Will continue to monitor pt.
[2023-06-24 06:37] LABS: INR 2.51; PT 27.5 Sec (11.4-14.6)
[2023-06-24 06:48] LABS: Blood Urea Nitrogen 51 mg/dl (9-20); Calcium 7.8 mg/dl (8.4-10.2); Carbon Dioxide 24 mmol/L (22-30); Chloride 107 mmol/L (98-107); Estimated Creatinine Clearance 23 ml/min; Glucose 104 mg/dl (70-99); Sodium 137 mmol/L (135-145); Vancomycin Random 13.9 ug/ml; eGFR 25.02
[2023-06-24 06:49] LABS: % Basophils 0.7 % (0-2); % Eosinophils 1.7 % (0-6); % Immature Granulocytes 0.9 % (0-0.5); % Lymphocytes 11.9 % (20.5-51.1); % Neutrophils 80.8 % (42.2-75.2); Absolute Basophils 0.1 10^3/uL (0-0.2); Absolute Eosinophils 0.1 10^3/uL (0-0.7); Absolute Immature Granulocytes 0.1 10^3/uL (0-0.05); Absolute Monocytes 0.3 10^3/uL (0.1-0.6); Absolute Neutrophils 6.6 10^3/uL (1.4-6.5); Mean Corp Hgb Conc. 34.8 g/dL (33.0-37.0); Mean Corpuscular Hgb 29.2 pg (27.0-31.0); Mean Corpuscular Volume 83.9 fL (80.0-94.0); Nucleated Red Blood Cells % 0 % (-); Platelet Count 88 10^3/uL (130-400); Red Blood Cell Count 2.74 10^6/uL (4.70-6.10); Red Cell Dist. Width 16.6 % (11.5-14.5); White Blood Cell Count 8.2 10^3/uL (4.8-10.8)
[2023-06-24 08:00] LABS: Glucose - Point of Care 142 mg/dl (70-99)
[2023-06-24] MEDS: NOVOLOG FLEXPEN-LOW RESISTANCE SC (08:13)
[2023-06-24] MEDS: NITRO-DUR 0.599999999999999978 MG TRANSDERM (08:22)
[2023-06-24] MEDS: MIRALAX 17 GRAMS PO (08:22)
[2023-06-24] MEDS: PROTONIX 40 MG PO (08:23)
[2023-06-24] MEDS: NORVASC 10 MG PO (08:23)
[2023-06-24] MEDS: COLACE 100 MG PO ×2 (08:23→19:44)
[2023-06-24] MEDS: MUCINEX 600 MG PO ×2 (08:23→19:44)
[2023-06-24] MEDS: ASPIR LOW (ENTERIC COATED) 81 MG PO (08:23)
[2023-06-24] MEDS: NEURONTIN 100 MG PO ×2 (08:23→19:45)
[2023-06-24] MEDS: PACERONE 200 MG PO (08:23)
--- NOTE | 2023-06-24 09:07 | PHA.VAN.FU ---
Vancomycin Assessment / Plan
- Assessment
Renal Function: SCR Decreasing
WBC's are: WNL
Concomitant Antimicrobials: piperacillin/tazobactam
- Assessment - Therapeutic Drug Monitoring
Random Level: 13.9 - drawn ~17H after initial dose of 1500mg
- Dosing Plan
Dosing by Level: Re-dose today (Vanc 1000mg)
- Monitoring Plan
Random Level: 06/25 0600
MRSA Screen: Ordered per protocol
- Follow Up
Pharmacy will continue to follow.
Vancomycin Follow UP
- -
Patient Age: 83
Patient Sex: Male
Vancomycin Day #: 2
Indication: Bacteremia
Requesting Provider: Dr Larry Miles
Pertinent Antimicrobial Allergies:
no pertinent antibiotic allergies
Height / Weight:
Height 5 ft 11 in
Actual Weight 72.9 kg
IBW in k.3
Pertinent Past Medical History: CKDIII (baseline SCR ~1.8-2.1), DM2, CLL/MGUS
- Vital Signs / Lab Results
Temp Pulse Resp BP Pulse Ox
98.4 F 78 23 112/45 93
06/24/23 07:30 06/24/23 08:00 06/24/23 08:00 06/24/23 08:00 06/24/23 08:42
Lab Results - Hematology
06/22/23 06/23/23 06/24/23
12:04 03:57 05:44
WBC 8.5 9.1 8.2
Lab Results - Chemistry
06/22/23 06/23/23 06/24/23
12:04 03:57 05:44
BUN 68 H 60 H 51 H
Creatinine 2.8 H 2.7 H 2.5 H
Estimated Creat Clear
Microbiology Results
06/21/23 00:49 Blood Culture - Preliminary
Blood/Venous No Growth in 72 hours- Final report to follow
06/21/23 00:49 Blood Culture - Preliminary
Blood/Venous No Growth in 72 hours- Final report to follow
06/23/23 13:31 Influenza Types A & B (YOBANY) - Final
Nasal Swab Negative for Influenza A & B, NAAT
Negative results must be combined with clinical observations
and patient history.
Nucleic Acid Amplification test (NAAT)performed on the
[employer] platform.
06/21/23 00:49 Urine Culture - Final
Urine NO GROWTH
Therapeutic Drug Monitoring
Random Vancomycin 13.9 ug/ml 06/24/23 05:44
--- NOTE | 2023-06-24 09:30 | WOUNDNOTE ---
PERIANAL (just distal to anus)
--- NOTE | 2023-06-24 09:31 | WOUNDNOTE ---
R BUTTOCKS (LOWER, NEAR GROIN)
--- NOTE | 2023-06-24 09:34 | WOUNDNOTE ---
[facility] RN note: Patient admitted with acute on chronic kidney disease. Had disimpaction with enema in ED earlier on day of admission. Patient lives at home with VN. Plan is SNF rehab when discharged as per patient. Suggested VN if he goes home.
See H&P for complete history.
PMH: CLL, CKD, CM, HF, a fib (Coumadin), 06/02-06/13/23 admission for pneumonia, HTN, DM, polycythemia vera, ABELARDO, myelofibrosis, gout, COPD, anemia.
Wound Location and type/assessment: Patient has full thickness coccyx and perianal ulcers, pink with yellow fibrin (perianal ulcer with more yellow fibrin than coccyx). Patient stated he's had a pilonidal cyst with surgery many years ago. Suspect
coccyx ulcer r/t pilonidal cyst ulceration vs stage 3 pressure injury. Distal perianal ulcers do not look pressure related d/t location. Patient has raised skin lesion on posterior R groin/buttocks area (appears chronic). Instructed patient to make
appointment with drafter mechanical. R heel blanchable red. Upper ear creases red suspect from his glasses. Scattered small bruises on hands/arms, thighs. Patient reports he always has bruises.
Appetite: good.
Pressure redistribution devices in place: Centrella Max air bed. Patient can turn self slowly in bed.
Plan: Dressing changed on coccyx/watson anal skin. Protective foam applied to heels. Instructed patient frequent turning and heel lift exercises. Heels off bed with pillow. Air chair cushion given. Instructed patient to take air chair cushion when
discharged.
Zeke texted Dr. Hamilton with update and asked hospitalist to evaluate perianal ulcers; defer to hospitalist if GI or colorectal consult indicated. Discussed with FEI Ayala.
Care plan to be updated and will follow as needed.
Note to case management requested for discharge: VN if goes home. Air mattress.
Recommend follow up at wound care center upon discharge.
--- NOTE | 2023-06-24 09:45 | PTOTSP ---
Speech Language Pathology
Pt seen for clinical bedside swallow evaluation. Previous VSE completed 07/23/14 with normal oropharyngeal swallow and question of possible tiny Zenker's diverticulum. P.O. trials of puree, regular solids, and thin liquids provided. Adequate
mastication, bolus formation, and A-P transit noted with no oral residue. No overt signs of aspiration. No signs of backflow into pharynx.
Discussed option of repeat VSE to rule out silent aspiration with pt given current PNA coupled with recent PNA. Pt would like to defer study at this time. MD notified.
Recommend:
(1) Continue regular solids/thin liquids
(2) General aspiration precautions
(3) Meds as tolerated
(4) VSE can be ordered per MD discretion if pt agreeable in future
(5) WOOL DYER to sign off
--- NOTE | 2023-06-24 11:17 | VNURNOTE ---
[facility] liason spoke with patient about resuming [facility] services. Patient states he is interested in going to rehab following [facility] hospitalization rather than returning home. Zeke text sent to case picker: Isha. Homehealth liason will follow-up in case
patient does return to home.
--- NOTE | 2023-06-24 12:30 | W.PN.NEPH.PH ---
Today's Communication / Plan
-
follow labs
holding lasix
Assessment/Plan
-
Assessment:
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
HAGMA
CLL
ishcemic cardiomyopathy
pAfib (on AC)
BPH
constipation
BRBPR
Plan:
GER improving with fluid administration cr down to 2.5
wt stable and no hypervolemia
follow bladder scan, pVR 290cc off carbajal
cont to hold lasix still
improving proteinuria from 3.9gm/gm of cr to 0.8g.
continue supporitve management and avoid further nephrotoxic agents
labs in am
d/w pt and at bedside
-
-
Date of Service: June 24, 2023
CC / HPI / ROS
-
Chief Complaint:
GER
History of Present Illness:
cr better at 2.5, sodium normal
wt no change
hb low at 8
Review of Systems:
non oliguric with out carbajal
no cp or sob
remains on O2
Labs
-
Labs:
WBC 8.2 10^3/uL (4.8-10.8) 06/24/23 05:44
RBC 2.74 10^6/uL (4.70-6.10) L 06/24/23 05:44
Hgb 8.0 g/dL (13.0-18.0) L 06/24/23 05:44
Hct 23.0 % (39.0-52.0) L 06/24/23 05:44
Plt Count 88 10^3/uL (130-400) L 06/24/23 05:44
Sodium 137 mmol/L (135-145) 06/24/23 05:44
Potassium 4.0 mmol/L (3.5-5.1) 06/24/23 05:44
Chloride 107 mmol/L (98-107) 06/24/23 05:44
Carbon Dioxide 24 mmol/L (22-30) 06/24/23 05:44
BUN 51 mg/dl (9-20) H 06/24/23 05:44
Creatinine 2.5 mg/dL (0.7-1.3) H 06/24/23 05:44
eGFR 25.02 06/24/23 05:44
Glucose 104 mg/dl (70-99) H 06/24/23 05:44
Calcium 7.8 mg/dl (8.4-10.2) L 06/24/23 05:44
Albumin 4.0 g/dl (3.5-5.0) 06/20/23 22:20
Physical Exam
-
Vital Signs:
Vital Signs
Temp Pulse Resp BP Pulse Ox
98.4 F 105 26 119/52 96
06/24/23 07:30 06/24/23 12:00 06/24/23 12:00 06/24/23 11:54 06/24/23 11:54
Cardiovascular:: Regular rate and rhythm
Lung Excursion:: Normal (decreased)
Abdomen:: Nontender and Soft
Extremity Edema:: None: Bilateral:
Carbajal Catheter: No
[2023-06-24] MEDS: NOVOLOG FLEXPEN-LOW RESISTANCE 2 UNITS SC (12:36)
[2023-06-24 12:42] LABS: Glucose - Point of Care 227 mg/dl (70-99)
[2023-06-24] MEDS: VANCOCIN 200 IV (13:27)
--- NOTE | 2023-06-24 13:35 | PTCARENOTE ---
Pt presents as assessed. Aox3, flat. NSR on tele monitor. Sating low to mid 90's on 4L NC. Voiding in urinal. WOC RN at bedside to evaluate perineal wounds. OOB to chair with PT. Pt able to make needs known, call gibbons within reach.
--- NOTE | 2023-06-24 15:58 | CM ---
Patient with Hx secondary myeloproliferative disorder/polycythemia vera with Dx Proctitis likely 2/2 constipation, PNA, Suspected sepsis, anemia. O2 4L. Receiving IV Zosyn, IV vanco. Seen by wound care nurse - daily wound care. PT & OT
recommend skilled rehab.
Met with patient and spoke with Sharon on speaker phone in patient room; extensive discussion re; short term SNF for rehab (and wound care). Patient and agree to SNF and prefer SNF in [place] with good rating and private room. Their
first choice is [facility], 2nd choice is [facility].
states patient has an appointment at [id number] for an Aranesp injection. His last injection was on 06/20/23.
Spoke with Ata Tony; she will review the referral and let CM know if she can accept.
Plan follow up SNF referrals.
--- NOTE | 2023-06-24 16:23 | W.PN.HOSP.TC ---
Today's Communication/Plan
-
see plan
Assessment / Plan
Assessment / Plan
Proctitis likely 2/2 constipation
Leukocytosis
-colitis seen on CT; currently patient without abdominal pain; no diarrhea
-continue abx
-low residue diet
Mutifocal PNA
Suspected sepsis(fever, tachypnea)
Acute hypoxic respiratory insufficiency secondary to above
Broaden antibiotics with Vanco and Zosyn
follow fever curve; fever could also be related to transfusion
check blood cxcx
COVID,flu - negative.
Was recently here with pneumonia. Given these findings we will ask speech to evaluate for possibility of silent aspiration
Secondary myeloproliferative disorder/polycythemia vera
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
Hold Jakafi until platelets less than 100 per hematology.
Acute on Chronic anemia
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 Alexis outpatient. 1 unit PRBC 06/21, need irradiated blood product. Give another unit 06/22 for hemoglobin 6.7. hematology following. hemolysis blood work
pending.
-receives Epo as outpatient
-if requires transfusion needs irradiated blood products given hx fludarabine 2005
Constipation s/p disimpaction and enema on admission
Metabolic Acidosis
Acute on chronic kidney disease
-creatinine seems to be slowly rising over past 2 months (was 1.8 beginning of May)
- hold SENIOR SOFTWARE PROJECT MANAGER lasix - patient instructed to be vocal if any signs SOB
-Nephrology following
Creatinine slowly improving. Bicarb improved; now off bicarb gtt
-hold SENIOR SOFTWARE PROJECT MANAGER colchicine, Farxiga and Febuxostat
Atrial Fibrillation on coumadin
-continue SENIOR SOFTWARE PROJECT MANAGER coumadin
-cw amiodarone, hold metoprolol
-daily INR; decrease coumadin to 2mg
Hx ischemic cardiomyopathy with improvement of EF 50-55%
CAD with hx PCI; know residual CAD with decision made for medical therapy (05/10/23)
BPH
-SENIOR SOFTWARE PROJECT MANAGER finasteride
DM II
-not on home meds
-ISS low
DVT PPx - SENIOR SOFTWARE PROJECT MANAGER coumadin
FULL CODE
Anticipated Discharge: > 48 hours
Subjective/Interval History
-
Date of Service: June 24, 2023
pt continues to improve
states breathing better
Objective Data
-
Labs:
Laboratory Results
06/24/23
05:44
WBC 8.2
Hgb 8.0 L
Hct 23.0 L
Plt Count 88 L
PT 27.5 H
INR 2.51
Sodium 137
Potassium 4.0
Chloride 107
Carbon Dioxide 24
BUN 51 H
Creatinine 2.5 H
Glucose 104 H
Calcium 7.8 L
Vital Signs:
Vital Signs
Temp Pulse Resp BP Pulse Ox
98.2 F 74 25 104/48 96
06/24/23 11:30 06/24/23 16:00 06/24/23 16:00 06/24/23 16:00 06/24/23 16:00
I&O
06/23/23 06/24/23 06/25/23
06:59 06:59 06:59
Intake Total 450 / 450 5110 / 5110 50 / 50
Output Total 800 / 800 1200 / 1200 600 / 600
Balance -350 / -350 3910 / 3910 -550 / -550
Review of Systems
-
History Source: Patient
All other systems: Reviewed and negative
Physical Exam
-
General: Well Developed and No Apparent Distress
HEENT: Normocephalic, Atraumatic and Moist Mucous Membranes
Respiratory: Clear to Auscultation
Cardiac: Regular Rhythm and S1/S2; Negative Murmur, Rub or Gallop
GI: Soft, Nontender, Nondistended and Normal Bowel Sounds; Negative Organomegaly
Rectal: Deferred by Provider
Musculoskeletal: No Clubbing, No Cyanosis and No Edema
Skin: Negative Rash
Neuro: Nonfocal/Grossly Intact
Data Reviewed
-
Labs: Labs Reviewed by me
[2023-06-24 17:25] LABS: Glucose - Point of Care 252 mg/dl (70-99)
[2023-06-24] MEDS: COUMADIN 2 MG PO (18:23)
[2023-06-24] MEDS: PROSCAR 5 MG PO (18:24)
[2023-06-24] MEDS: NOVOLOG FLEXPEN-LOW RESISTANCE 3 UNITS SC (18:24)
[2023-06-24] MEDS: FLUSH (NSS) 1 FLUSH IV (19:45)
--- NOTE | 2023-06-24 21:26 | W.PN.ONC2 ---
Today's Communication / Plan
-
Reviewed with pt that we can resume Jakafi once Plt>100.
Impression
Impression
- multifocal pneumonia
- colitis
- acute on chronic anemia
- thrombocytopenia
Plan
Plan
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
- re-admission with weakness in setting of likely persistent multifocal pneumonia, possible colitis. CBC shows worsening anemia from baseline 8-9 g/dl to 6.3 g/dl. However hgb on presentation was 8.4 g/dl with drop after IV resuscitation, abx
initiation. CBC also with new thrombocytopenia that developed during last admission, was 119K on presentation with drop to 77K today after IVFs, abx.
- suspect worsening anemia, new thrombocyopenia due to acute infection, fluid administration, abx. Will hold home Jakafi for now with plts < 100K however can resume 15 mg BID once plts > 100K, hgb stable at prior baseline ~ 8.5-9.0.
- pt with hx of cold agglutinin hemolytic anemia in the past. recent titers low positive at 1:64. hemolysis panel ordered however low suspicion for clinically significant active hemolysis with retic 1.0%, LDH mildly high at 389. hapto, T bili
pending. check PTT, PT, fibrinogen.
- CBC daily. transfuse for hgb < 7.0 g/dl, plts < 20K. pRBCs should be warmed due to hx of cold agglutinin as well as irradiated, leukoreduced due to prior fludarabine exposure.
will continue to follow.
Subjective/Objective
Chief Complaint
Hematology/Oncology follow up of CLL, myelofibrosis
Subjective
Denies new complaint.
Vital Signs:
Vital Signs
Temp Pulse Resp BP Pulse Ox
98.6 F 82 24 118/43 93
06/24/23 19:24 06/24/23 20:00 06/24/23 20:00 06/24/23 20:00 06/24/23 21:16
Lab Results:
Laboratory Data
WBC 8.2 10^3/uL (4.8-10.8) 06/24/23 05:44
Hgb 8.0 g/dL (13.0-18.0) L 06/24/23 05:44
Plt Count 88 10^3/uL (130-400) L 06/24/23 05:44
PT 27.5 Sec (11.4-14.6) H 06/24/23 05:44
INR 2.51 06/24/23 05:44
eGFR 25.02 06/24/23 05:44
Physical Exam
Awake, alert, chronically ill-appearing
[2023-06-24] MEDS: CRESTOR 5 MG PO (22:05)
[2023-06-24 22:12] LABS: Glucose - Point of Care 306 mg/dl (70-99)
[2023-06-24] MEDS: NOVOLOG FLEXPEN 3 UNITS SC (22:32)
--- NOTE | 2023-06-24 22:48 | PTCARENOTE ---
Pt's temperature was 101 PO so given Tylenol for fever. Pt requested ice packs, saying ' they gave them to me before when I had a fever'. Pt given 2 ice packs. He refused to remove one blanket, all others removed. HS glucose was 306, pt
requesting insulin coverage. PADMA Marte notified and order given for 3 units SQ and given. Will monitor pt.
[2023-06-25] VITALS (14 sets, daily range): BP systolic 97–124; BP diastolic 35–58; PULSE 99; O2SAT 90; BMI 22.7
[2023-06-25] MEDS: ZOSYN 50 IV ×5 (00:12→23:24)
[2023-06-25 06:07] LABS: % Basophils 0.6 % (0-2); % Eosinophils 2.5 % (0-6); % Immature Granulocytes 1.1 % (0-0.5); % Monocytes 3.8 % (1.7-9.3); Absolute Basophils 0.1 10^3/uL (0-0.2); Absolute Eosinophils 0.2 10^3/uL (0-0.7); Absolute Immature Granulocytes 0.1 10^3/uL (0-0.05); Absolute Monocytes 0.4 10^3/uL (0.1-0.6); Absolute Neutrophils 7.5 10^3/uL (1.4-6.5); Hemoglobin 7.4 g/dL (13.0-18.0); Mean Corp Hgb Conc. 33.6 g/dL (33.0-37.0); Mean Corpuscular Hgb 28.7 pg (27.0-31.0); Mean Corpuscular Volume 85.3 fL (80.0-94.0); Mean Platelet Volume 11.2 fL (7.4-10.4); Nucleated Red Blood Cells % 0.2 % (-); Platelet Count 93 10^3/uL (130-400); Red Blood Cell Count 2.58 10^6/uL (4.70-6.10); Red Cell Dist. Width 17.1 % (11.5-14.5); White Blood Cell Count 9.3 10^3/uL (4.8-10.8)
[2023-06-25 06:13] LABS: INR 2.86; PT 30.4 Sec (11.4-14.6)
[2023-06-25 06:41] LABS: Blood Urea Nitrogen 42 mg/dl (9-20); Calcium 7.6 mg/dl (8.4-10.2); Carbon Dioxide 26 mmol/L (22-30); Chloride 106 mmol/L (98-107); Estimated Creatinine Clearance 24 ml/min; Glucose 107 mg/dl (70-99); Potassium 4.1 mmol/L (3.5-5.1); Sodium 136 mmol/L (135-145); eGFR 25.02
[2023-06-25 08:18] LABS: Glucose - Point of Care 129 mg/dl (70-99)
[2023-06-25] MEDS: NOVOLOG FLEXPEN-LOW RESISTANCE SC ×2 (08:51→17:46)
--- NOTE | 2023-06-25 09:08 | PHA.VAN.FU ---
Vancomycin Assessment / Plan
- Assessment
Renal Function: Stable
WBC's are: WNL
Concomitant Antimicrobials: piperacillin/tazobactam
- Assessment - Therapeutic Drug Monitoring
Random Level: 17 - drawn ~16H after previous dose of 1000mg
- Dosing Plan
Dosing by Level: Hold off on dosing today
- Monitoring Plan
Random Level: 06/26 06
- Follow Up
Pharmacy will continue to follow.
Vancomycin Follow UP
- -
Patient Age: 83
Patient Sex: Male
Vancomycin Day #: 3
Indication: Bacteremia
Requesting Provider: Dr Larry Miles
Pertinent Antimicrobial Allergies:
no pertinent antibiotic allergies
Height / Weight:
Height 5 ft 11 in
Actual Weight 73.8 kg
IBW in k.3
Pertinent Past Medical History: CKDIII (baseline SCR ~1.8-2.1), DM2, CLL/MGUS
- Vital Signs / Lab Results
Temp Pulse Resp BP Pulse Ox
99.1 F 93 20 120/46 94
06/25/23 07:33 06/25/23 07:33 06/25/23 07:33 06/25/23 06:00 06/25/23 07:33
Lab Results - Hematology
06/22/23 06/23/23 06/24/23
12:04 03:57 05:44
WBC 8.5 9.1 8.2
06/25/23
05:48
WBC 9.3
Lab Results - Chemistry
06/22/23 06/23/23 06/24/23
12:04 03:57 05:44
BUN 68 H 60 H 51 H
Creatinine 2.8 H 2.7 H 2.5 H
Estimated Creat Clear
06/25/23
05:48
BUN 42 H
Creatinine 2.5 H
Estimated Creat Clear 24
Microbiology Results
06/21/23 00:49 Blood Culture - Preliminary
Blood/Venous No Growth in 4 days- Final report to follow
06/21/23 00:49 Blood Culture - Preliminary
Blood/Venous No Growth in 4 days- Final report to follow
06/23/23 20:41 Blood Culture - Preliminary
Blood/Venous No Growth in 24 hours- Final report to follow
06/23/23 18:37 Blood Culture - Preliminary
Blood/Venous No Growth in 24 hours- Final report to follow
06/24/23 11:27 Nasal Screen MRSA (PCR) - Final
Nose MRSA not detected - performed by PCR methodology.
06/23/23 13:31 Influenza Types A & B (YOBANY) - Final
Nasal Swab Negative for Influenza A & B, NAAT
Negative results must be combined with clinical observations
and patient history.
Nucleic Acid Amplification test (NAAT)performed on the
[employer] platform.
Therapeutic Drug Monitoring
Random Vancomycin 17.0 ug/ml 06/25/23 05:47
[2023-06-25] MEDS: COLACE 100 MG PO ×2 (09:34→20:04)
[2023-06-25] MEDS: MUCINEX 600 MG PO ×2 (09:34→20:04)
[2023-06-25] MEDS: MIRALAX 17 GRAMS PO (09:34)
[2023-06-25] MEDS: PACERONE 200 MG PO (09:34)
[2023-06-25] MEDS: PROTONIX 40 MG PO (09:34)
[2023-06-25] MEDS: NORVASC 10 MG PO (09:34)
[2023-06-25] MEDS: NITRO-DUR 0.599999999999999978 MG TRANSDERM (09:35)
[2023-06-25] MEDS: ASPIR LOW (ENTERIC COATED) 81 MG PO (09:35)
[2023-06-25] MEDS: NEURONTIN 100 MG PO ×2 (09:35→20:04)
[2023-06-25 10:40] LABS: Haptoglobin 189 mg/dL (30-200)
--- NOTE | 2023-06-25 12:41 | W.PN.NEPH.PH ---
Today's Communication / Plan
-
resume lasix
Assessment/Plan
-
Assessment:
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
HAGMA
CLL
ishcemic cardiomyopathy
pAfib (on AC)
BPH
constipation
BRBPR
Plan:
GER-cr stable at 2.5
wt is increasing but net neg balance
follow bladder scan, pVR 290cc off carbajal
likely resume lasix tomorrow
improving proteinuria from 3.9gm/gm of cr to 0.8g.
continue supporitve management and avoid further nephrotoxic agents
Bp stable on home meds
hb decreasing, prn transfusion known h/o CLL
labs in am
d/w pt and nursing
-
-
Date of Service: June 25, 2023
CC / HPI / ROS
-
Chief Complaint:
GER
History of Present Illness:
cr stable at 2.5, sodium normal
wt increasing
hb low at 7.4
Review of Systems:
non oliguric with out carbajal
no cp or sob at rest
remains on O2 3lit
Labs
-
Labs:
WBC 9.3 10^3/uL (4.8-10.8) 06/25/23 05:48
RBC 2.58 10^6/uL (4.70-6.10) L 06/25/23 05:48
Hgb 7.4 g/dL (13.0-18.0) L 06/25/23 05:48
Hct 22.0 % (39.0-52.0) L 06/25/23 05:48
Plt Count 93 10^3/uL (130-400) L 06/25/23 05:48
Sodium 136 mmol/L (135-145) 06/25/23 05:48
Potassium 4.1 mmol/L (3.5-5.1) 06/25/23 05:48
Chloride 106 mmol/L (98-107) 06/25/23 05:48
Carbon Dioxide 26 mmol/L (22-30) 06/25/23 05:48
BUN 42 mg/dl (9-20) H 06/25/23 05:48
Creatinine 2.5 mg/dL (0.7-1.3) H 06/25/23 05:48
eGFR 25.02 06/25/23 05:48
Glucose 107 mg/dl (70-99) H 06/25/23 05:48
Calcium 7.6 mg/dl (8.4-10.2) L 06/25/23 05:48
Albumin 4.0 g/dl (3.5-5.0) 06/20/23 22:20
Physical Exam
-
Vital Signs:
Vital Signs
Temp Pulse Resp BP Pulse Ox
99.3 F 99 17 116/53 95
06/25/23 12:02 06/25/23 10:52 06/25/23 10:52 06/25/23 10:52 06/25/23 10:06
Cardiovascular:: Regular rate and rhythm
Lung Excursion:: Abnormal (decreased)
Abdomen:: Nontender and Soft
Extremity Edema:: None: Bilateral:
Carbajal Catheter: No
--- NOTE | 2023-06-25 12:54 | PN.CDI ---
CDI
- -
CDI:
Physician Documentation Request
Admit Date: 06/21/23 01:36
Dear Doctor Alfonso,
Please review the following and provide your response in the progress notes.
Clinical Indicators:
06/24/23 09:34 - Wound Note
#Wound Location and type/assessment:
#...Patient has full thickness coccyx and perianal ulcers,
#...pink with yellow fibrin (perianal ulcer with more yellow fibrin than coccyx).
#...Patient stated he's had a pilonidal cyst with surgery many years ago.
#Suspect coccyx ulcer r/t pilonidal cyst ulceration vs stage 3 pressure injury.
#Distal perianal ulcers do not look pressure related d/t location.
Physician documentation of the type and location of wounds is required for compliant documentation. Based on the above clinical findings and your assessment, please provide the following in your progress note:
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
No, coccyx ulcer r/t pilonidal cyst vs. stage 3 PI
Other
1. Location of the ulcer/wound, including laterality.
2. Type (etiology) of ulcer/wound:
- Diabetic ulcer
- Traumatic wound
- Pressure (decubitus) ulcer
- Non-healing surgical wound
3. For a non-pressure ulcer, please indicate the depth/severity:
- Limited to the breakdown of skin
- With fat layer exposed
- With necrosis of muscle
4. If a pressure ulcer, please also include the stage* of the ulcer:
- Stage 1 - Skin intact, non-blanchable redness
- Stage 2 - Partial thickness loss of dermis, includes intact or open blister
- Stage 3 - Full thickness tissue not including bone, tendon or muscle
- Stage 4 - Full thickness tissue loss, including exposed bone, tendon or muscle
Use of terms such as suspected, likely, concern for, or probable (associated with a specific diagnosis that is being evaluated, monitored, or treated as if it exists) are acceptable and can be coded in the inpatient setting, when documented at the
time of discharge.
Thank you,
Olinda Duenas RN BSN CCDS
CDI Specialist
please contact via tiger text
Please use your independent medical judgment in providing your response.
*Source: National Pressure Ulcer Advisory Panel (NPUAP)
[2023-06-25 13:00] LABS: Glucose - Point of Care 261 mg/dl (70-99)
--- NOTE | 2023-06-25 13:05 | PN.CDI ---
CDI
- -
CDI:
Physician Documentation Request
Admit Date: 06/21/23 01:36
Dear Doctor Alfonso,
Please review the following and provide your response in the progress notes.
Clinical Indicators:
Laboratory Tests
06/20/23 06/21/23 06/22/23
22:20 04:27 12:04
Sodium 135 135 132 L
06/23/23 06/24/23 06/25/23
03:57 05:44 05:48
Sodium 134 L 137 136
Based on the above, please clarify in the progress notes, the appropriate diagnosis, if significant, that supports the above abnormalities and additional evaluation, monitoring and/or treatment rendered:
Hyponatremia
Abnormal lab value, clinically insignificant
Other
Use of terms such as suspected, likely, concern for, or probable (associated with a specific diagnosis that is being evaluated, monitored, or treated as if it exists) are acceptable and can be coded in the inpatient setting, when documented at the
time of discharge.
Thank you,
Olinda Duenas RN BSN CCDS
CDI Specialist
please contact via tiger text
Please use your independent medical judgment in providing your response.
[2023-06-25] MEDS: NOVOLOG FLEXPEN-LOW RESISTANCE 3 UNITS SC (13:36)
[2023-06-25] MEDS: LASIX 40 MG PO (13:36)
--- NOTE | 2023-06-25 15:35 | W.PN.HOSP.TC ---
Addendum entered and electronically signed by Carmelina Hamilton MD 06/25/23 16:28:
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
mild hyponatremia monitor
Original Note:
Today's Communication/Plan
-
see plan
Assessment / Plan
Assessment / Plan
Proctitis likely 2/2 constipation
Leukocytosis
-colitis seen on CT; currently patient without abdominal pain; no diarrhea
-continue abx
-low residue diet
Mutifocal PNA
Suspected sepsis(fever, tachypnea)
Acute hypoxic respiratory insufficiency secondary to above
Broaden antibiotics with Vanco and Zosyn -> vanco dc on 06/25 due to negative MRSA swab.
follow fever curve; fever could also be related to transfusion
blood culture neg thus far
COVID,flu - negative.
Was recently here with pneumonia. Given these findings we will ask speech to evaluate for possibility of silent aspiration
Secondary myeloproliferative disorder/polycythemia vera
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
Hold Jakafi until platelets less than 100 per hematology.
Acute on Chronic anemia
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 Alexis outpatient. 1 unit PRBC 06/21, need irradiated blood product. Give another unit 06/22 for hemoglobin 6.7. hematology following. hemolysis blood work
pending.
-receives Epo as outpatient
-if requires transfusion needs irradiated blood products given hx fludarabine 2005
Constipation s/p disimpaction and enema on admission
Metabolic Acidosis
Acute on chronic kidney disease
-creatinine seems to be slowly rising over past 2 months (was 1.8 beginning of May)
- hold PROPERTY UNDERWRITER lasix - patient instructed to be vocal if any signs SOB
-Nephrology following
Creatinine slowly improving. Bicarb improved; now off bicarb gtt
-hold PROPERTY UNDERWRITER colchicine, Farxiga and Febuxostat
Atrial Fibrillation on coumadin
-continue PROPERTY UNDERWRITER coumadin
-cw amiodarone, hold metoprolol
-daily INR; decrease coumadin to 2mg
Hx ischemic cardiomyopathy with improvement of EF 50-55%
CAD with hx PCI; know residual CAD with decision made for medical therapy (05/10/23)
BPH
-PROPERTY UNDERWRITER finasteride
DM II
-not on home meds
-ISS low
DVT PPx - PROPERTY UNDERWRITER coumadin
FULL CODE
Anticipated Discharge: > 48 hours
Subjective/Interval History
-
Date of Service: June 25, 2023
pt states he has a sore throat
is relieved of his constipation
Objective Data
-
Labs:
Laboratory Results
06/25/23 06/25/23
05:47 05:48
WBC 9.3
Hgb 7.4 L
Hct 22.0 L
Plt Count 93 L
PT 30.4 H
INR 2.86
Sodium 136
Potassium 4.1
Chloride 106
Carbon Dioxide 26
BUN 42 H
Creatinine 2.5 H
Glucose 107 H
Calcium 7.6 L
Vital Signs:
Vital Signs
Temp Pulse Resp BP Pulse Ox
98.5 F 99 17 116/53 95
06/25/23 15:22 06/25/23 10:52 06/25/23 10:52 06/25/23 10:52 06/25/23 10:06
I&O
06/24/23 06/25/23 06/26/23
06:59 06:59 06:59
Intake Total 5110 / 5110 390 / 390 240 / 240
Output Total 1200 / 1200 1800 / 1800 200 / 200
Balance 3910 / 3910 -1410 / -1410 40 / 40
Review of Systems
-
History Source: Patient
All other systems: Reviewed and negative
Physical Exam
-
General: Well Developed and No Apparent Distress
HEENT: Normocephalic, Atraumatic, Moist Mucous Membranes and Oxygen
Respiratory: Clear to Auscultation
Cardiac: Regular Rhythm and S1/S2; Negative Murmur, Rub or Gallop
GI: Soft, Nontender, Nondistended and Normal Bowel Sounds; Negative Organomegaly
Rectal: Deferred by Provider
Musculoskeletal: No Clubbing, No Cyanosis and No Edema
Skin: Negative Rash
Neuro: Nonfocal/Grossly Intact
Data Reviewed
-
Labs: Labs Reviewed by me
--- NOTE | 2023-06-25 16:28 | PTCARENOTE ---
Pt presents as assessed. Aox3, flat. NSR on tele monitor. Sating low to mid 90's on 3L NC. Pt with multiple bowel movements; watson care completed. OOB to chair with PT briefly; unwilling to stay up longer than one hour. at bedside, both updated
on plan of care. Pt able to make needs known, call gibbons within reach.
[2023-06-25 17:45] LABS: Glucose - Point of Care 146 mg/dl (70-99)
[2023-06-25] MEDS: PROSCAR 5 MG PO (18:24)
[2023-06-25] MEDS: COUMADIN 2 MG PO (18:24)
[2023-06-25] MEDS: CRESTOR 5 MG PO (20:04)
[2023-06-25 22:20] LABS: Glucose - Point of Care 221 mg/dl (70-99)
[2023-06-25] MEDS: TYLENOL 650 MG PO (23:37)
[2023-06-26] VITALS (12 sets, daily range): BP systolic 97–114; BP diastolic 39–88
--- NOTE | 2023-06-26 03:01 | PTCARENOTE ---
pt with several very large loose bm's after being constipated- buttocks/sacral dressings redone with each bm- pt's bottom is very difficult to clean with open ulcers- he refuses to be fully cleaned at times due to pain with being cleaned up-
[2023-06-26] MEDS: ZOSYN 50 IV ×3 (05:06→18:00)
[2023-06-26 06:45] LABS: % Basophils 0.7 % (0-2); % Eosinophils 2.1 % (0-6); % Monocytes 4.1 % (1.7-9.3); % Neutrophils 81.1 % (42.2-75.2); Absolute Basophils 0.1 10^3/uL (0-0.2); Absolute Eosinophils 0.2 10^3/uL (0-0.7); Absolute Immature Granulocytes 0.1 10^3/uL (0-0.05); Absolute Lymphocytes 1.1 10^3/uL (1.2-3.4); Absolute Monocytes 0.4 10^3/uL (0.1-0.6); Absolute Neutrophils 7.9 10^3/uL (1.4-6.5); Hematocrit 22.3 % (39.0-52.0); Hemoglobin 7.4 g/dL (13.0-18.0); Mean Corp Hgb Conc. 33.2 g/dL (33.0-37.0); Mean Corpuscular Hgb 28.1 pg (27.0-31.0); Mean Corpuscular Volume 84.8 fL (80.0-94.0); Mean Platelet Volume 11.2 fL (7.4-10.4); Nucleated Red Blood Cells % 0 % (-); Platelet Count 105 10^3/uL (130-400); Red Blood Cell Count 2.63 10^6/uL (4.70-6.10); Red Cell Dist. Width 17.5 % (11.5-14.5); White Blood Cell Count 9.8 10^3/uL (4.8-10.8)
[2023-06-26 06:47] LABS: PT 36.5 Sec (11.4-14.6)
--- NOTE | 2023-06-26 06:57 | W.PN.ONC2 ---
Today's Communication / Plan
-
PLT close to 100K (93K yesterday and rising) so okay to resume Jakafi but at much lower dose 5 mg PO BID. New Rx being sent to out office. Patient can start when family or pharmacy can get supply.
Impression
Impression
- multifocal pneumonia
- colitis
- JAK2+ myelofibrosis
- acute on chronic anemia
- thrombocytopenia
Plan
Plan
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
- re-admission with weakness in setting of likely persistent multifocal pneumonia, possible colitis. CBC shows worsening anemia from baseline 8-9 g/dl to 6.3 g/dl. However hgb on presentation was 8.4 g/dl with drop after IV resuscitation, abx
initiation. CBC also with new thrombocytopenia that developed during last admission, was 119K on presentation with drop to 77K today after IVFs, abx.
- suspect worsening anemia, new thrombocyopenia due to acute infection, fluid administration, abx. Will hold home Jakafi for now with plts < 100K however can resume 5 mg BID
- CBC daily. transfuse for hgb < 7.0 g/dl, plts < 20K. pRBCs should be warmed due to hx of cold agglutinin as well as irradiated, leukoreduced due to prior fludarabine exposure.
will continue to follow.
Subjective/Objective
Chief Complaint
ACS Heme Onc
Subjective
Diarrhea post disimpaction for constipation. No bleeding. Denies SOB.
Vital Signs:
Vital Signs
Temp Pulse Resp BP Pulse Ox
97.8 F 82 18 111/62 94
06/26/23 05:20 06/26/23 04:00 06/26/23 04:00 06/26/23 04:00 06/26/23 03:02
Lab Results:
Laboratory Data
WBC 9.3 10^3/uL (4.8-10.8) 06/25/23 05:48
Hgb 7.4 g/dL (13.0-18.0) L 06/25/23 05:48
Plt Count 93 10^3/uL (130-400) L 06/25/23 05:48
PT 30.4 Sec (11.4-14.6) H 06/25/23 05:47
INR 2.86 06/25/23 05:47
eGFR 25.02 06/25/23 05:48
Physical Exam
HEENT: No Jaundice
Cardiology: S1 and S2
Pulmonary: Clear
Extremities: No C/C/E
[2023-06-26 07:06] LABS: ALT (SGPT) 14 U/L (0-50); AST (SGOT) 22 U/L (17-59); Albumin 2.9 g/dl (3.5-5.0); Alkaline Phosphatase 74 U/L (38-126); Blood Urea Nitrogen 39 mg/dl (9-20); Calcium 7.6 mg/dl (8.4-10.2); Carbon Dioxide 25 mmol/L (22-30); Chloride 104 mmol/L (98-107); Estimated Creatinine Clearance 22 ml/min; Glucose 113 mg/dl (70-99); Potassium 3.3 mmol/L (3.5-5.1); Sodium 135 mmol/L (135-145); Total Bilirubin 1.2 mg/dl (0.2-1.3); Total Protein 4.9 g/dl (6.3-8.2); eGFR 22.82
[2023-06-26] MEDS: NITRO-DUR 0.599999999999999978 MG TRANSDERM (07:34)
[2023-06-26] MEDS: PACERONE 200 MG PO (07:36)
[2023-06-26] MEDS: ASPIR LOW (ENTERIC COATED) 81 MG PO (07:36)
[2023-06-26] MEDS: PROTONIX 40 MG PO (07:36)
[2023-06-26] MEDS: NEURONTIN 100 MG PO ×2 (07:36→21:28)
[2023-06-26] MEDS: MUCINEX 600 MG PO ×2 (07:36→21:28)
[2023-06-26] MEDS: NORVASC 10 MG PO (07:36)
[2023-06-26 07:41] LABS: Glucose - Point of Care 133 mg/dl (70-99)
[2023-06-26] MEDS: NOVOLOG FLEXPEN-LOW RESISTANCE SC (07:45)
[2023-06-26] MEDS: LOPRESSOR 2.5 MG IV (09:37)
[2023-06-26] MEDS: KCL 40 MEQ PO (09:37)
[2023-06-26] MEDS: LASIX 40 MG PO (09:38)
[2023-06-26] MEDS: COLACE PO ×2 (09:39→21:40)
[2023-06-26] MEDS: MIRALAX PO (09:39)
--- NOTE | 2023-06-26 09:39 | WOUNDNOTE ---
COCCYX/СЕРГЕЙ ANAL WOUND
--- NOTE | 2023-06-26 09:46 | WOUNDNOTE ---
PERIANAL/COCCYX (with photo flash) (thighs toward the top of photo)
--- NOTE | 2023-06-26 09:50 | WOUNDNOTE ---
WO RN note: Patient having frequent diarrhea. Was changed 5 times on lieutenant shift supervisor as per nursing/patient. Patient incontinent of large amount of loose brown stool. Sybil care given and wound care done with help from FEI Pagan. Wounds about the same
however, small ulcer with yellow slough noted distal to coccyx ulcer (cyst/abscess wound?) . Irrigated wounds with Dakin's solution. Updated Dr. Miles re: frequent diarrhea, suspect sybil anal ulcers may be open abscesses; requested hospitalist to
evaluate sybil anal ulcers; defer to hospitalist if GI or colorectal consult appropriate; Dr. Miles approved amending wound care order. Discussed with FEI Pagan. Will follow as needed.
--- NOTE | 2023-06-26 10:39 | PTCARENOTE ---
Patient HR up to 140's at change of shift. HR irregular, AM medications administered. ECG obtained, patient in afib. MD notified and orders obtained. Patient back in SR/ST with HR in the low 100's. Patient INC of diarrhea stool. Wound care of
coccyx and anal ulcers done the manager e learning. Call gibbons in reach. Will continue to monitor.
[2023-06-26] MEDS: FLUSH (NSS) 1 FLUSH IV (12:50)
--- NOTE | 2023-06-26 13:21 | W.PN.HOSP.TC ---
Today's Communication/Plan
-
monitor vitals
see plan
wean o2 as tolerated
cw abx
Assessment / Plan
Assessment / Plan
Proctitis likely 2/2 constipation
Leukocytosis
-colitis seen on CT; currently patient without abdominal pain; no diarrhea
-continue abx
-low residue diet
Mutifocal PNA
Suspected sepsis(fever, tachypnea)
Acute hypoxic respiratory insufficiency secondary to above
Broaden antibiotics with Vanco and Zosyn -> vanco dc on 06/25 due to negative MRSA swab.
follow fever curve; fever could also be related to transfusion
blood culture neg thus far
COVID,flu - negative.
Was recently here with pneumonia. Was evaluated by speech and patient deferred VSE
Secondary myeloproliferative disorder/polycythemia vera
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
Now the platelet is improving, hematology started patient back on Jakafi but at a lower dose 5 mg twice daily
Acute on Chronic anemia
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 Alexis outpatient. 1 unit PRBC 06/21, need irradiated blood product. Give another unit 06/22 for hemoglobin 6.7. hematology following. hemolysis blood work
pending.
-receives Epo as outpatient
-if requires transfusion needs irradiated blood products given hx fludarabine 2005
Constipation s/p disimpaction and enema on admission
Metabolic Acidosis
Acute on chronic kidney disease
-creatinine seems to be slowly rising over past 2 months (was 1.8 beginning of May)
Lasix restarted
-Nephrology following
Creatinine slowly improving. Bicarb improved; now off bicarb gtt
-hold SELENIUM PLANT OPERATOR colchicine, Farxiga and Febuxostat
Mild hyponatremia
monitor
paroxysmal Atrial Fibrillation on coumadin
went to afib with rvr 06/26; now converted back to normal sinus rhythm
-cw amiodarone, hold metoprolol
-daily INR; hold 2 mg Coumadin
cocyx ulcer with pilondial cyst
monitor for abscess
per patient he had cyst in past
advised patient on wearing loose clothing
if worse then consult colorectal
Hx ischemic cardiomyopathy with improvement of EF 50-55%
CAD with hx PCI; know residual CAD with decision made for medical therapy (05/10/23)
BPH
-SELENIUM PLANT OPERATOR finasteride
DM II
-not on home meds
-ISS low
DVT PPx - SELENIUM PLANT OPERATOR coumadin
FULL CODE
General: Well Developed and No Apparent Distress
HEENT: Normocephalic, Atraumatic, Moist Mucous Membranes and Oxygen
Respiratory: Clear to Auscultation
Cardiac: Regular Rhythm and S1/S2; Negative Murmur, Rub or Gallop
GI: Soft, Nontender, Nondistended and Normal Bowel Sounds; Negative Organomegaly
Rectal: Deferred by Provider
Musculoskeletal: No Clubbing, No Cyanosis and No Edema
Skin: Negative Rash
Neuro: Nonfocal/Grossly Intact
Anticipated Discharge: 24 - 48 hours
Subjective/Interval History
-
Date of Service: June 26, 2023
denies pain
Objective Data
-
Labs:
Laboratory Results
06/26/23
05:43
WBC 9.8
Hgb 7.4 L
Hct 22.3 L
Plt Count 105 L
PT 36.5 H
INR 3.60
Sodium 135
Potassium 3.3 L
Chloride 104
Carbon Dioxide 25
BUN 39 H
Creatinine 2.7 H
Glucose 113 H
Calcium 7.6 L
Total Bilirubin 1.2
AST 22
ALT 14
Alkaline Phosphatase 74
Vital Signs:
Vital Signs
Temp Pulse Resp BP Pulse Ox
98.2 F 88 36 111/56 96
06/26/23 11:01 06/26/23 12:00 06/26/23 12:00 06/26/23 12:00 06/26/23 12:00
I&O
06/25/23 06/26/23 06/27/23
06:59 06:59 06:59
Intake Total 390 / 390 480 / 480 360 / 360
Output Total 1800 / 1800 1450 / 1450 300 / 300
Balance -1410 / -1410 -970 / -970 60 / 60
[2023-06-26] MEDS: NOVOLOG FLEXPEN-LOW RESISTANCE 2 UNITS SC ×2 (14:17→18:02)
[2023-06-26 14:32] LABS: Glucose - Point of Care 203 mg/dl (70-99)
--- NOTE | 2023-06-26 15:43 | CM ---
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 O2 3L. Receiving IV Zosyn. Seen by wound care nurse - - daily wound care. PT & OT
recommend skilled rehab.
Spoke with [facility]; they are able to accept the patient if he provides his own supply of Jakafi. Informed her patient's Jakafi will be restarted at a lower dose, and new script was being filled by pharmacy for patient to receive the med
here. Nurse can send the med to SNF with the patient. Informed her patient may be ready for SNF in 1-[address] Miles[address]
Message from [facility] nurse; recommend an air mattress at SNF. He has coccyx and perianal ulcers---> forwarded to Cecily @ [facility].
Met with patient, Sharon and daughter; all agree to [facility] and were informed SNF accepted pending bed availability at time of d/c. They are aware that the Jakafi needs to be sent with him to SNF.
Plan Jakafi needs to be sent with patient to SNF.
Plan [facility] when medically ready if bed available.
[2023-06-26] MEDS: PROSCAR 5 MG PO (18:00)
[2023-06-26] MEDS: FLUSH (NSS) 2 FLUSH IV (18:01)
--- NOTE | 2023-06-26 18:06 | W.PN.NEPH.PH ---
Today's Communication / Plan
-
- Cr slight bump
- started lasix today
Assessment/Plan
-
Assessment:
GER on CKD
HAGMA
CLL
ishcemic cardiomyopathy
pAfib (on AC)
BPH
constipation
BRBPR
Plan:
GER-cr slight rise from 2.5 --> 2.7
wt is increasing but net neg balance
follow bladder scan, pVR 290cc off carbajal
restarted lasix
improving proteinuria from 3.9gm/gm of cr to 0.8g.
continue supporitve management and avoid further nephrotoxic agents
Bp stable on home meds
hb decreasing, prn transfusion known h/o CLL
labs in am
d/w pt and nursing
-
-
Date of Service: June 26, 2023
CC / HPI / ROS
-
Chief Complaint:
GER
History of Present Illness:
cr stable at 2.7, sodium normal
wt increasing
hb low at 7.4
Review of Systems:
non oliguric with out carbajal
no cp or sob at rest
remains on O2 3lit
Labs
-
Labs:
WBC 9.8 10^3/uL (4.8-10.8) 06/26/23 05:43
RBC 2.63 10^6/uL (4.70-6.10) L 06/26/23 05:43
Hgb 7.4 g/dL (13.0-18.0) L 06/26/23 05:43
Hct 22.3 % (39.0-52.0) L 06/26/23 05:43
Plt Count 105 10^3/uL (130-400) L 06/26/23 05:43
Sodium 135 mmol/L (135-145) 06/26/23 05:43
Potassium 3.3 mmol/L (3.5-5.1) L 06/26/23 05:43
Chloride 104 mmol/L (98-107) 06/26/23 05:43
Carbon Dioxide 25 mmol/L (22-30) 06/26/23 05:43
BUN 39 mg/dl (9-20) H 06/26/23 05:43
Creatinine 2.7 mg/dL (0.7-1.3) H 06/26/23 05:43
eGFR 22.82 06/26/23 05:43
Glucose 113 mg/dl (70-99) H 06/26/23 05:43
Calcium 7.6 mg/dl (8.4-10.2) L 06/26/23 05:43
Albumin 2.9 g/dl (3.5-5.0) L 06/26/23 05:43
Physical Exam
-
Vital Signs:
Vital Signs
Temp Pulse Resp BP Pulse Ox
98.7 F 88 36 111/56 96
06/26/23 15:07 06/26/23 12:00 06/26/23 12:00 06/26/23 12:00 06/26/23 12:00
Cardiovascular:: Regular rate and rhythm
Respiratory:: Bilateral: CTA
Lung Excursion:: Normal
Abdomen:: Nontender and Soft
Bowel Sounds:: Normal
Extremity Edema:: None: Bilateral:
Carbajal Catheter: No
[2023-06-26 18:07] LABS: Glucose - Point of Care 240 mg/dl (70-99)
[2023-06-26] MEDS: CRESTOR 5 MG PO (21:28)
[2023-06-26] MEDS: NON-FORMULARY ITEM 1 UNIT PO (21:29)
[2023-06-26] MEDS: TYLENOL 650 MG PO (21:41)
[2023-06-26 21:52] LABS: Glucose - Point of Care 294 mg/dl (70-99)
[2023-06-27] VITALS (28 sets, daily range): BP systolic 89–115; BP diastolic 38–68; PULSE 90; O2SAT 93; BMI 22.3
[2023-06-27] MEDS: ZOSYN 50 IV ×3 (00:31→14:07)
--- NOTE | 2023-06-27 05:13 | PTCARENOTE ---
Patient appears depressed, flat affect, withdrawn, A/O x4. 2-3L NC in place, Sp02 >93%. Low grade temp, prn tylenol given per pt request with good effect. Pt denies any pain, except when performing wound care. Tele showing NSR. Reminded pt to
reposition self frequently while in bed, assistance provided with pressure off loading. Heels floated on pillow. Nitro patch removed HS. Voiding via urinal. No diarrhea, watson anal wounds with purulent drainage. Call gibbons, tray table, and urinal
within reach. Bed alarm on for safety.
[2023-06-27 05:52] LABS: ALT (SGPT) 14 U/L (0-50); AST (SGOT) 20 U/L (17-59); Albumin 2.7 g/dl (3.5-5.0); Alkaline Phosphatase 66 U/L (38-126); Blood Urea Nitrogen 45 mg/dl (9-20); Calcium 7.7 mg/dl (8.4-10.2); Carbon Dioxide 24 mmol/L (22-30); Chloride 106 mmol/L (98-107); Estimated Creatinine Clearance 19 ml/min; Glucose 109 mg/dl (70-99); Potassium 3.7 mmol/L (3.5-5.1); Sodium 134 mmol/L (135-145); Total Protein 4.7 g/dl (6.3-8.2); eGFR 19.33
[2023-06-27] MEDS: PACERONE 200 MG PO (07:59)
[2023-06-27] MEDS: NITRO-DUR 0.599999999999999978 MG TRANSDERM (07:59)
[2023-06-27] MEDS: NOVOLOG FLEXPEN-LOW RESISTANCE SC (07:59)
[2023-06-27] MEDS: COLACE 100 MG PO ×2 (07:59→20:08)
[2023-06-27] MEDS: PROTONIX 40 MG PO (08:00)
[2023-06-27] MEDS: MUCINEX 600 MG PO ×2 (08:00→20:09)
[2023-06-27] MEDS: NORVASC 10 MG PO (08:00)
[2023-06-27] MEDS: LASIX 40 MG PO (08:00)
[2023-06-27] MEDS: NEURONTIN 100 MG PO ×2 (08:00→20:09)
[2023-06-27] MEDS: NON-FORMULARY ITEM 1 UNIT PO ×2 (08:00→20:12)
[2023-06-27] MEDS: ASPIR LOW (ENTERIC COATED) 81 MG PO (08:00)
[2023-06-27] MEDS: MIRALAX PO (08:02)
[2023-06-27 08:06] LABS: Glucose - Point of Care 128 mg/dl (70-99)
--- NOTE | 2023-06-27 08:10 | PTCARENOTE ---
Patient received from sales account leader. Patient resting comfortably in bed. AAO, VSS. No events noted over night. No complaints of pain at this time although patients bottom does hurt if not in the right position due to ulcers. Wound care do be done
later. Currently on 2L N/C. Call gibbons in reach.
--- NOTE | 2023-06-27 10:31 | W.PN.ONC ---
Today's Communication / Plan
-
With history of PV would evaluate chest pain for cardiac event
Recommend EKG and troponin
CBC shows worsening anemia from baseline 8-9 g/dl to 6.3 g/dl. However hgb on presentation was 8.4 g/dl with drop after IV resuscitation, abx initiation.
Platelet count greater than 100 K
No evidence of excess cytokines
Transfusions require warming and irradiated blood products
Impression
Impression
- multifocal pneumonia
- colitis
- JAK2+ myelofibrosis
- acute on chronic anemia
- thrombocytopenia
Subjective/Objective
Subjective/Objective
Patient complaining of resting left-sided chest pain. He describes this as intermittent and dull in nature. No radiation or shortness of breath.
Vital Signs:
Vital Signs
Temp Pulse Resp BP Pulse Ox
97.5 F 116 25 105/55 93
06/27/23 07:20 06/27/23 09:17 06/27/23 09:17 06/27/23 09:17 06/27/23 09:37
Physical examination unchanged
Lab Results:
Laboratory Data
WBC 9.8 10^3/uL (4.8-10.8) 06/26/23 05:43
Hgb 7.4 g/dL (13.0-18.0) L 06/26/23 05:43
Plt Count 105 10^3/uL (130-400) L 06/26/23 05:43
PT 36.5 Sec (11.4-14.6) H 06/26/23 05:43
INR 3.60 06/26/23 05:43
eGFR 19.33 06/27/23 05:02
[2023-06-27 11:06] LABS: % Basophils 0.7 % (0-2); % Eosinophils 2.1 % (0-6); % Immature Granulocytes 0.9 % (0-0.5); % Lymphocytes 13.5 % (20.5-51.1); % Monocytes 4.1 % (1.7-9.3); % Neutrophils 78.7 % (42.2-75.2); Absolute Basophils 0.1 10^3/uL (0-0.2); Absolute Eosinophils 0.2 10^3/uL (0-0.7); Absolute Immature Granulocytes 0.1 10^3/uL (0-0.05); Absolute Lymphocytes 1.2 10^3/uL (1.2-3.4); Absolute Monocytes 0.4 10^3/uL (0.1-0.6); Mean Corpuscular Hgb 27.6 pg (27.0-31.0); Mean Corpuscular Volume 83.7 fL (80.0-94.0); Mean Platelet Volume 10.9 fL (7.4-10.4); Nucleated Red Blood Cells % 0.2 % (-); Platelet Count 123 10^3/uL (130-400); Red Blood Cell Count 2.21 10^6/uL (4.70-6.10); Red Cell Dist. Width 17.8 % (11.5-14.5); White Blood Cell Count 8.9 10^3/uL (4.8-10.8)
[2023-06-27 11:09] LABS: INR 3.19; PT 33.2 Sec (11.4-14.6)
[2023-06-27 11:25] LABS: Hemoglobin 6.1 g/dL (13.0-18.0)
[2023-06-27 11:26] LABS: Hematocrit 18.5 % (39.0-52.0)
[2023-06-27 11:27] LABS: Troponin I 0.012 ng/ml
[2023-06-27] MEDS: LIDOCAINE 4% PATCH 1 PATCH TOPICAL (11:52)
[2023-06-27 12:53] LABS: Glucose - Point of Care 263 mg/dl (70-99)
[2023-06-27] MEDS: ZOSYN IV ×2 (12:59→13:43)
[2023-06-27] MEDS: NOVOLOG FLEXPEN-LOW RESISTANCE 3 UNITS SC (12:59)
--- NOTE | 2023-06-27 13:18 | W.PN.HOSP.TC ---
Today's Communication/Plan
-
Monitor vital signs and see plan
Transfuse 1 unit of blood today
Switch antibiotics to oral
Hold amlodipine
Monitor renal function
dc to SNF when hgb and creatinine stable
Assessment / Plan
Assessment / Plan
Proctitis likely 2/2 constipation
Leukocytosis resolved
-colitis seen on CT; currently patient without abdominal pain; no diarrhea
-continue abx
-low residue diet
Mutifocal PNA
Suspected sepsis(fever, tachypnea)
Acute hypoxic respiratory insufficiency secondary to above
switch abx to augmentin
follow fever curve; fever could also be related to transfusion
blood culture neg thus far
COVID,flu - negative.
Was recently here with pneumonia. Was evaluated by speech and patient deferred VSE
Secondary myeloproliferative disorder/polycythemia vera
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
Now the platelet is improving, hematology started patient back on Jakafi but at a lower dose 5 mg twice daily
Acute on Chronic anemia
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 Alexis outpatient. 1 unit PRBC 06/21, need irradiated blood product. another unit 06/22 for hemoglobin 6.7. hematology following.
hgb 06/27 6.1; transfuse another unit
-receives Epo as outpatient
-if requires transfusion needs irradiated blood products given hx fludarabine 2005
mild chest discomfort
EKG non ischemic; trop wnl
monitor
lidocaine patch
hx of HTN
holding metoprolol
hold amlodipine for now
Constipation s/p disimpaction and enema on admission
resolved
Metabolic Acidosis resolved
Acute on chronic kidney disease
-creatinine seems to be slowly rising over past 2 months (was 1.8 beginning of May)
Lasix restarted
-Nephrology following
now off bicarb gtt
-hold CORE ANALYST colchicine, Farxiga and Febuxostat
Mild hyponatremia
monitor
paroxysmal Atrial Fibrillation on coumadin
went to afib with rvr 06/26; now converted back to normal sinus rhythm
-cw amiodarone, hold metoprolol
-daily INR; hold 2 mg Coumadin
cocyx ulcer with pilondial cyst
monitor for abscess
per patient he had cyst in past
advised patient on wearing loose clothing
if worse then consult colorectal
Hx ischemic cardiomyopathy with improvement of EF 50-55%
CAD with hx PCI; know residual CAD with decision made for medical therapy (05/10/23)
BPH
-CORE ANALYST finasteride
DM II
-not on home meds
-ISS low
DVT PPx - CORE ANALYST coumadin when INR normalize
FULL CODE
General: Well Developed and No Apparent Distress
HEENT: Normocephalic, Atraumatic, Moist Mucous Membranes and Oxygen
Respiratory: Clear to Auscultation
Cardiac: Regular Rhythm and S1/S2; Negative Murmur, Rub or Gallop
GI: Soft, Nontender, Nondistended and Normal Bowel Sounds; Negative Organomegaly
Rectal: Deferred by Provider
Musculoskeletal: No Clubbing, No Cyanosis and No Edema
Skin: Negative Rash
Neuro: Nonfocal/Grossly Intact
I spent a total of 52 minutes with the patient or on the floor. More than 50% of this time involved counseling and coordination of care.
Anticipated Discharge: 24 - 48 hours
Subjective/Interval History
-
Date of Service: June 27, 2023
denies nausea
Objective Data
-
Labs:
Laboratory Results
06/27/23 06/27/23 06/27/23
05:02 10:40 10:41
WBC 8.9
Hgb 6.1 L*
Hct 18.5 L*
Plt Count 123 L
PT 33.2 H
INR 3.19
Sodium 134 L
Potassium 3.7
Chloride 106
Carbon Dioxide 24
BUN 45 H
Creatinine 3.1 H
Glucose 109 H
Calcium 7.7 L
Total Bilirubin 1.0
AST 20
ALT 14
Alkaline Phosphatase 66
Vital Signs:
Vital Signs
Temp Pulse Resp BP Pulse Ox
98.6 F 90 25 107/57 94
06/27/23 11:07 06/27/23 11:07 06/27/23 11:07 06/27/23 11:07 06/27/23 11:07
I&O
06/26/23 06/27/23 06/28/23
06:59 06:59 06:59
Intake Total 480 / 480 1125 / 1125
Output Total 1450 / 1450 1075 / 1075
Balance -970 / -970 50 / 50
--- NOTE | 2023-06-27 16:39 | W.PN.NEPH.PH ---
Today's Communication / Plan
-
- stopped amlodipine
- stopped lasix
Assessment/Plan
-
Assessment:
GER on CKD
HAGMA
CLL
ishcemic cardiomyopathy
pAfib (on AC)
BPH
constipation
BRBPR
Plan:
GER-cr slight rise from 2.5 --> 2.7 --> 3.1
wt is stable
follow bladder scan, no carbajal
restarted lasix on 06/24 but will hold as Cr has been rising
improving proteinuria from 3.9gm/gm of cr to 0.8g.
continue supporitve management and avoid further nephrotoxic agents
BPs low, will stop amlodipine as well
hb decreasing, prn transfusion known h/o CLL
labs in am
patient anxious to be discharged but not medically ready in the setting of rising Cr. d/w pt
-
-
Date of Service: June 27, 2023
CC / HPI / ROS
-
Chief Complaint:
GER
History of Present Illness:
cr worse at 3.1, sodium normal
wt stable
hb low at 7.4
Review of Systems:
non oliguric with out carbajal
no cp or sob at rest
remains on O2
Labs
-
Labs:
WBC 8.9 10^3/uL (4.8-10.8) 06/27/23 10:41
RBC 2.21 10^6/uL (4.70-6.10) L 06/27/23 10:41
Hgb 6.1 g/dL (13.0-18.0) L* 06/27/23 10:41
Hct 18.5 % (39.0-52.0) L* 06/27/23 10:41
Plt Count 123 10^3/uL (130-400) L 06/27/23 10:41
Sodium 134 mmol/L (135-145) L 06/27/23 05:02
Potassium 3.7 mmol/L (3.5-5.1) 06/27/23 05:02
Chloride 106 mmol/L (98-107) 06/27/23 05:02
Carbon Dioxide 24 mmol/L (22-30) 06/27/23 05:02
BUN 45 mg/dl (9-20) H 06/27/23 05:02
Creatinine 3.1 mg/dL (0.7-1.3) H 06/27/23 05:02
eGFR 19.33 06/27/23 05:02
Glucose 109 mg/dl (70-99) H 06/27/23 05:02
Calcium 7.7 mg/dl (8.4-10.2) L 06/27/23 05:02
Albumin 2.7 g/dl (3.5-5.0) L 06/27/23 05:02
Physical Exam
-
Vital Signs:
Vital Signs
Temp Pulse Resp BP Pulse Ox
99.6 F 86 21 104/39 94
06/27/23 16:24 06/27/23 16:24 06/27/23 16:24 06/27/23 16:24 06/27/23 16:24
Cardiovascular:: Regular rate and rhythm
Respiratory:: Bilateral: Coarse
Lung Excursion:: Normal
Abdomen:: Nontender and Soft
Bowel Sounds:: Normal
Extremity Edema:: None: Bilateral:
Carbajal Catheter: No
[2023-06-27] MEDS: NOVOLOG FLEXPEN-LOW RESISTANCE 2 UNITS SC (17:53)
[2023-06-27] MEDS: PROSCAR 5 MG PO (17:56)
[2023-06-27 17:58] LABS: Glucose - Point of Care 237 mg/dl (70-99)
[2023-06-27] MEDS: AUGMENTIN 500 MG/125 MG 1 TABLET PO (20:09)
[2023-06-27] MEDS: MYCOSTATIN ORAL SUSPENSION 5 ML PO (21:41)
[2023-06-27] MEDS: CRESTOR 5 MG PO (21:41)
[2023-06-27 21:50] LABS: Glucose - Point of Care 198 mg/dl (70-99)
--- NOTE | 2023-06-27 23:43 | PTCARENOTE ---
Pt rec'd at change of shift. Pt presents withdrawn with flat affect. Pt very insistent on things being done a certain way. This RN completed blood transfusion shortly after shift change and gave HS medications. Lidocaine patch removed per AUG. FREDDIE
transdermal nitro patch intact. Pt states that nitro patch is due to be removed at bedtime. This RN assessed the order and educated pt that patch is Q24 with no order to remove at bedtime. Pt insisted on removal of nitro patch. Patch removed by this
RN. Assessment as documented. NSR on nurse monitoring, VSS.
[2023-06-28] VITALS (12 sets, daily range): BP systolic 103–132; BP diastolic 42–57; BMI 22.8
[2023-06-28 04:05] LABS: % Basophils 0.7 % (0-2); % Eosinophils 2.9 % (0-6); % Lymphocytes 22.1 % (20.5-51.1); % Monocytes 4.9 % (1.7-9.3); % Neutrophils 68.4 % (42.2-75.2); Absolute Basophils 0.1 10^3/uL (0-0.2); Absolute Eosinophils 0.2 10^3/uL (0-0.7); Absolute Immature Granulocytes 0.1 10^3/uL (0-0.05); Absolute Lymphocytes 1.5 10^3/uL (1.2-3.4); Absolute Monocytes 0.3 10^3/uL (0.1-0.6); Absolute Neutrophils 4.8 10^3/uL (1.4-6.5); Hematocrit 21.2 % (39.0-52.0); Hemoglobin 7.3 g/dL (13.0-18.0); Mean Corp Hgb Conc. 34.4 g/dL (33.0-37.0); Mean Corpuscular Hgb 28.9 pg (27.0-31.0); Mean Corpuscular Volume 83.8 fL (80.0-94.0); Mean Platelet Volume 10.2 fL (7.4-10.4); Nucleated Red Blood Cells % 0.4 % (-); Platelet Count 110 10^3/uL (130-400); Red Blood Cell Count 2.53 10^6/uL (4.70-6.10); Red Cell Dist. Width 17.1 % (11.5-14.5)
[2023-06-28] MEDS: TYLENOL 650 MG PO ×2 (04:06→23:07)
--- NOTE | 2023-06-28 04:11 | PTCARENOTE ---
Upon waking pt for morning lab work, pt c/o intermittent muscular pain in L shoulder that he is unable to rate. Pt states that pain is resolved with repositioning at times, but unable to resolve independently at this time. PRN tylenol given.
[2023-06-28 04:22] LABS: INR 2.55; PT 27.9 Sec (11.4-14.6)
[2023-06-28 04:47] LABS: ALT (SGPT) 16 U/L (0-50); AST (SGOT) 24 U/L (17-59); Albumin 2.5 g/dl (3.5-5.0); Alkaline Phosphatase 57 U/L (38-126); Blood Urea Nitrogen 51 mg/dl (9-20); Calcium 7.7 mg/dl (8.4-10.2); Carbon Dioxide 21 mmol/L (22-30); Chloride 103 mmol/L (98-107); Estimated Creatinine Clearance 17 ml/min; Glucose 115 mg/dl (70-99); Potassium 3.8 mmol/L (3.5-5.1); Sodium 135 mmol/L (135-145); Total Bilirubin 0.9 mg/dl (0.2-1.3); Total Protein 4.5 g/dl (6.3-8.2)
--- NOTE | 2023-06-28 08:28 | PTCARENOTE ---
Patient received from shift production associate. Patient resting comfortably in bed, flat affect. AAO, VSS. No events noted over night. No complaints of pain at this time. Transitioned to Oral ABX. Wound care do be done later. Currently on 2L N/C, will
wean as tolerated. Call gibbons in reach.
[2023-06-28] MEDS: MYCOSTATIN ORAL SUSPENSION 5 ML PO ×3 (08:31→21:52)
[2023-06-28] MEDS: LIDOCAINE 4% PATCH 1 PATCH TOPICAL (08:32)
[2023-06-28] MEDS: NITRO-DUR 0.599999999999999978 MG TRANSDERM (08:32)
[2023-06-28] MEDS: MUCINEX 600 MG PO ×2 (08:33→20:31)
[2023-06-28] MEDS: PACERONE 200 MG PO (08:33)
[2023-06-28] MEDS: AUGMENTIN 500 MG/125 MG 1 TABLET PO ×2 (08:33→20:31)
[2023-06-28] MEDS: NEURONTIN 100 MG PO ×2 (08:33→20:32)
[2023-06-28] MEDS: NON-FORMULARY ITEM 1 UNIT PO ×2 (08:34→20:32)
[2023-06-28] MEDS: COLACE 100 MG PO ×2 (08:34→20:32)
[2023-06-28] MEDS: PROTONIX 40 MG PO (08:34)
[2023-06-28] MEDS: ASPIR LOW (ENTERIC COATED) 81 MG PO (08:34)
[2023-06-28] MEDS: NOVOLOG FLEXPEN-LOW RESISTANCE SC (08:36)
[2023-06-28 08:41] LABS: Glucose - Point of Care 109 mg/dl (70-99)
[2023-06-28] MEDS: MIRALAX PO (09:12)
--- NOTE | 2023-06-28 11:33 | W.PN.NEPH.PH ---
Today's Communication / Plan
-
labs in am
Assessment/Plan
-
Assessment:
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
HAGMA
CLL
ishcemic cardiomyopathy
pAfib (on AC)
BPH
constipation
BRBPR
Plan:
GER-cr cont to rise at 3.4, follow bladder scan
hoping to see improvement tomorrow while holding lasix
wt increasing slowly and O2 requirement remains same
s/p PRBC with improvement of hb, may benefit from more transfusion since he feels tired -defer to primary
BPs better today , cont to hold CCB
labs in am
-
-
Date of Service: June 28, 2023
CC / HPI / ROS
-
Chief Complaint:
GER
History of Present Illness:
cr worse at 3.4, sodium normal
wt stable
hb low at 7.4 s/p PRBC 06/27
Review of Systems:
non oliguric with out carbajal
no cp or sob at rest, feels tired
remains on O2
Labs
-
Labs:
WBC 7.0 10^3/uL (4.8-10.8) 06/28/23 03:54
RBC 2.53 10^6/uL (4.70-6.10) L 06/28/23 03:54
Hgb 7.3 g/dL (13.0-18.0) L 06/28/23 03:54
Hct 21.2 % (39.0-52.0) L 06/28/23 03:54
Plt Count 110 10^3/uL (130-400) L 06/28/23 03:54
Sodium 135 mmol/L (135-145) 06/28/23 03:54
Potassium 3.8 mmol/L (3.5-5.1) 06/28/23 03:54
Chloride 103 mmol/L (98-107) 06/28/23 03:54
Carbon Dioxide 21 mmol/L (22-30) L 06/28/23 03:54
BUN 51 mg/dl (9-20) H 06/28/23 03:54
Creatinine 3.4 mg/dL (0.7-1.3) H 06/28/23 03:54
eGFR 17.30 06/28/23 03:54
Glucose 115 mg/dl (70-99) H 06/28/23 03:54
Calcium 7.7 mg/dl (8.4-10.2) L 06/28/23 03:54
Albumin 2.5 g/dl (3.5-5.0) L 06/28/23 03:54
Physical Exam
-
Vital Signs:
Vital Signs
Temp Pulse Resp BP Pulse Ox
98.4 F 88 34 114/53 90
06/28/23 11:15 06/28/23 08:33 06/28/23 06:00 06/28/23 08:33 06/28/23 11:12
Cardiovascular:: Regular rate and rhythm
Respiratory:: Bilateral: CTA (decreased)
Lung Excursion:: Normal
Abdomen:: Nontender and Soft
Extremity Edema:: None: Bilateral:
Carbajal Catheter: No
[2023-06-28 12:40] LABS: Glucose - Point of Care 215 mg/dl (70-99)
[2023-06-28] MEDS: NOVOLOG FLEXPEN-LOW RESISTANCE 2 UNITS SC (12:52)
[2023-06-28] MEDS: MYCOSTATIN ORAL SUSPENSION PO (14:50)
--- NOTE | 2023-06-28 17:14 | CM ---
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 O2 2L. Receiving Jakafi. Seen by wound care nurse - daily wound care. PT & OT recommend
skilled rehab.
Plan Jakafi needs to be sent with patient to SNF.
Plan [facility] when medically ready if bed available.
[2023-06-28 17:20] LABS: Glucose - Point of Care 198 mg/dl (70-99)
[2023-06-28] MEDS: PROSCAR 5 MG PO (18:11)
[2023-06-28] MEDS: NOVOLOG FLEXPEN-LOW RESISTANCE 1 UNITS SC (18:11)
--- NOTE | 2023-06-28 19:35 | W.PN.HOSP.TC ---
Today's Communication/Plan
-
recheck Hgb in AM
consider further transfusions
Assessment / Plan
Assessment / Plan
Proctitis likely 2/2 constipation
Leukocytosis resolved
-colitis seen on CT; currently patient without abdominal pain; no diarrhea
-continue abx
-low residue diet
Mutifocal PNA
Suspected sepsis(fever, tachypnea)
Acute hypoxic respiratory insufficiency secondary to above
switch abx to augmentin
fever resolved
blood culture Negative
COVID,flu - negative.
Was recently here with pneumonia. Was evaluated by speech and patient deferred VSE
Secondary myeloproliferative disorder/polycythemia vera
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
Thrombocytopenia improving, hematology started patient back on Jakafi but at a lower dose 5 mg twice daily. Input of Onc noted
As per onc, if pt requires transfusion, would need warming and irradiated blood products
Acute on Chronic anemia
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 Alexis outpatient. 1 unit PRBC 06/21, need irradiated blood product. another unit 06/22 for hemoglobin 6.7. hematology following.
hgb 06/27 6.1; transfused another unit-->06/28 7.3
-receives Epo as outpatient
-if requires transfusion needs irradiated blood products given hx fludarabine 2005
mild chest discomfort
EKG non ischemic; trop wnl
monitor
lidocaine patch
hx of HTN
holding metoprolol
hold amlodipine for now
Constipation s/p disimpaction and enema on admission
resolved
Metabolic Acidosis resolved
Acute on chronic kidney disease
-creatinine seems to be slowly rising over past 2 months (was 1.8 beginning of May)
Lasix restarted
-Nephrology following
now off bicarb gtt
-hold MACHINE ERECTOR colchicine, Farxiga and Febuxostat
BUN/Creat 95/3.7-->68/2.8-->51/2.5-->45/3.1-->51/3.4
Mild hyponatremia
resolved
paroxysmal Atrial Fibrillation on coumadin
went to afib with rvr 06/26; now converted back to normal sinus rhythm
-cw amiodarone, hold metoprolol
-daily INR; hold 2 mg Coumadin
INR 2.51-->2.86-->3.60-->3.19-->2.55
potential resume tomorrow pending Hgb
cocyx ulcer with pilondial cyst
monitor for abscess
per patient he had cyst in past
advised patient on wearing loose clothing
if worse then consult colorectal
Hx ischemic cardiomyopathy with improvement of EF 50-55%
CAD with hx PCI; know residual CAD with decision made for medical therapy (05/10/23)
BPH
-MACHINE ERECTOR finasteride
DM II
-not on home meds
-ISS low
DVT PPx - MACHINE ERECTOR coumadin
very complex situation
FULL CODE
I spent a total of 45 minutes with the patient or on the floor. More than 50% of this time involved counseling and coordination of care.
Anticipated Discharge: > 48 hours
Subjective/Interval History
-
Date of Service: June 28, 2023
Awake, alert, conversant
Objective Data
-
Vital Signs:
Vital Signs
Temp Pulse Resp BP Pulse Ox
98.7 F 86 28 114/50 94
06/28/23 15:16 06/28/23 18:00 06/28/23 18:00 06/28/23 18:00 06/28/23 18:00
I&O
06/27/23 06/28/23 06/29/23
06:59 06:59 06:59
Intake Total 1125 / 1125 950 / 950 800 / 800
Output Total 1075 / 1075 500 / 500 500 / 500
Balance 50 / 50 450 / 450 300 / 300
Review of Systems
-
History Source: Patient and Coordinated Provider
Constitutional: Denies Fever
EENT: Reports No Symptoms Reported
Respiratory: Reports No Symptoms; Denies Cough or Trouble Breathing
Cardiac: Reports No Symptoms; Denies Chest Pain
Abdomen/GI: Reports No Symptoms; Denies Abdominal Pain
Physical Exam
-
General: Well Developed, Well Nourished and No Apparent Distress
HEENT: Normocephalic, Atraumatic and Moist Mucous Membranes
Respiratory: Clear to Auscultation; Negative Wheezes, Rales or Rhonchi
Cardiac: Regular Rhythm and S1/S2
GI: Soft, Nontender and Nondistended
Musculoskeletal: No Clubbing, No Cyanosis and No Edema
[2023-06-28 21:48] LABS: Glucose - Point of Care 175 mg/dl (70-99)
[2023-06-28] MEDS: CRESTOR 5 MG PO (21:52)
[2023-06-29] VITALS (12 sets, daily range): BP systolic 98–123; BP diastolic 45–102; BMI 21.9
--- NOTE | 2023-06-29 02:49 | PTCARENOTE ---
Pt AAOx3, SR on telemetry monitor. SaO2 witnessed to drop into the 80s on 2L. Pt woken up and repositioned with relief to 93%. Pt turned and wound care performed. Pt voided small amount throughout shift, bladder scanned for 281mL. Denies urge to
urinate at this time. Pt turned to R side with foam wedge. Call gibbons placed within reach.
[2023-06-29 05:19] LABS: % Basophils 0.7 % (0-2); % Eosinophils 2.1 % (0-6); % Immature Granulocytes 1.1 % (0-0.5); % Lymphocytes 26.1 % (20.5-51.1); % Monocytes 5.3 % (1.7-9.3); % Neutrophils 64.7 % (42.2-75.2); Absolute Eosinophils 0.1 10^3/uL (0-0.7); Absolute Immature Granulocytes 0.1 10^3/uL (0-0.05); Absolute Lymphocytes 1.5 10^3/uL (1.2-3.4); Absolute Monocytes 0.3 10^3/uL (0.1-0.6); Absolute Neutrophils 3.7 10^3/uL (1.4-6.5); Hematocrit 25.6 % (39.0-52.0); Hemoglobin 8.6 g/dL (13.0-18.0); Mean Corp Hgb Conc. 33.6 g/dL (33.0-37.0); Mean Corpuscular Hgb 28.6 pg (27.0-31.0); Mean Platelet Volume 10.7 fL (7.4-10.4); Nucleated Red Blood Cells % 0.4 % (-); Platelet Count 125 10^3/uL (130-400); Red Blood Cell Count 3.01 10^6/uL (4.70-6.10); Red Cell Dist. Width 17.3 % (11.5-14.5); White Blood Cell Count 5.7 10^3/uL (4.8-10.8)
[2023-06-29 05:37] LABS: INR 1.54; PT 18.7 Sec (11.4-14.6)
[2023-06-29 05:44] LABS: ALT (SGPT) 21 U/L (0-50); AST (SGOT) 31 U/L (17-59); Albumin 2.8 g/dl (3.5-5.0); Alkaline Phosphatase 60 U/L (38-126); Blood Urea Nitrogen 54 mg/dl (9-20); Carbon Dioxide 23 mmol/L (22-30); Chloride 105 mmol/L (98-107); Estimated Creatinine Clearance 17 ml/min; Glucose 108 mg/dl (70-99); Sodium 138 mmol/L (135-145); Total Protein 5.1 g/dl (6.3-8.2); eGFR 17.93
--- NOTE | 2023-06-29 05:55 | PTCARENOTE ---
Assumed care for pt 3a-7a. Pt alert, flat, withdrawn. No c/o pain. SR on monitor. Remainson 2LNC. Pt urinated 100cc at a time, yellow. Q2T. No BM. PT currently sleeping, will continue to monitor. Call gibbons in reach.
[2023-06-29 08:48] LABS: Glucose - Point of Care 110 mg/dl (70-99)
[2023-06-29] MEDS: NOVOLOG FLEXPEN-LOW RESISTANCE SC (09:24)
[2023-06-29] MEDS: ASPIR LOW (ENTERIC COATED) 81 MG PO (09:25)
[2023-06-29] MEDS: AUGMENTIN 500 MG/125 MG 1 TABLET PO ×2 (09:25→21:55)
[2023-06-29] MEDS: COLACE 100 MG PO (09:26)
[2023-06-29] MEDS: LIDOCAINE 4% PATCH 1 PATCH TOPICAL (09:26)
[2023-06-29] MEDS: MIRALAX PO (09:26)
[2023-06-29] MEDS: MYCOSTATIN ORAL SUSPENSION 5 ML PO ×4 (09:27→21:55)
[2023-06-29] MEDS: NEURONTIN 100 MG PO ×2 (09:27→21:55)
[2023-06-29] MEDS: MUCINEX 600 MG PO ×2 (09:27→21:55)
[2023-06-29] MEDS: NITRO-DUR 0.599999999999999978 MG TRANSDERM (09:29)
[2023-06-29] MEDS: PROTONIX 40 MG PO (09:31)
[2023-06-29] MEDS: PACERONE 200 MG PO (09:31)
[2023-06-29] MEDS: NON-FORMULARY ITEM 1 UNIT PO ×2 (09:32→21:57)
[2023-06-29] MEDS: TYLENOL 650 MG PO (09:35)
[2023-06-29 12:37] LABS: Glucose - Point of Care 223 mg/dl (70-99)
--- NOTE | 2023-06-29 12:48 | W.PN.HOSP.TC ---
Addendum entered and electronically signed by Wei Bowden MD 06/29/23 13:07:
maintaining NSR, may have to reconsider use of OAC in pt with chronic anemia, for now, will resume
Original Note:
Today's Communication/Plan
-
ID consult
notify Onc of change in status
CXR
resume Coumadin, extra dose now
Assessment / Plan
Assessment / Plan
Proctitis likely 2/2 constipation
Leukocytosis resolved
-colitis seen on CT; currently patient without abdominal pain; no diarrhea
-continue abx
-low residue diet
Mutifocal PNA
Suspected sepsis(fever, tachypnea)
Acute hypoxic respiratory insufficiency secondary to above
switch abx to augmentin
fever resolved, recurred again today
blood culture Negative
COVID,flu - negative.
Was recently here with pneumonia. Was evaluated by speech and patient deferred VSE
now with fever and cough, will request input from ID and order CXR
Secondary myeloproliferative disorder/polycythemia vera
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
Thrombocytopenia improving, hematology started patient back on Jakafi but at a lower dose 5 mg twice daily. Input of Onc noted
As per onc, if pt requires transfusion, would need warming and irradiated blood products
Acute on Chronic anemia
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 Alexis outpatient. 1 unit PRBC 06/21, need irradiated blood product. another unit 06/22 for hemoglobin 6.7. hematology following.
hgb 06/27 6.1; transfused another unit-->06/28 7.3-->06/29 8.6
-receives Epo as outpatient
-if requires transfusion needs irradiated blood products given hx fludarabine 2005
mild chest discomfort
EKG non ischemic; trop wnl
monitor
lidocaine patch
hx of HTN
holding metoprolol
hold amlodipine for now
Constipation s/p disimpaction and enema on admission
resolved
Metabolic Acidosis resolved
Acute on chronic kidney disease
-creatinine seems to be slowly rising over past 2 months (was 1.8 beginning of May)
Lasix restarted
-Nephrology following
now off bicarb gtt
-hold AUTO FLEET MAINTENANCE MANAGER colchicine, Farxiga and Febuxostat
BUN/Creat 95/3.7-->68/2.8-->51/2.5-->45/3.1-->51/3.4-->54/3.3
Mild hyponatremia
resolved
paroxysmal Atrial Fibrillation on coumadin
went to afib with rvr 06/26; now converted back to normal sinus rhythm
-cw amiodarone, hold metoprolol
-daily INR; hold 2 mg Coumadin
INR 2.51-->2.86-->3.60-->3.19-->2.55-->1.54
will resume Coumadin, extra dose now
cocyx ulcer with pilondial cyst
monitor for abscess
per patient he had cyst in past
advised patient on wearing loose clothing
if worse then consult colorectal
Hx ischemic cardiomyopathy with improvement of EF 50-55%
CAD with hx PCI; know residual CAD with decision made for medical therapy (05/10/23)
BPH
-AUTO FLEET MAINTENANCE MANAGER finasteride
DM II
-not on home meds
-ISS low
DVT PPx - AUTO FLEET MAINTENANCE MANAGER coumadin
very complex situation
call/text placed to review with Oncology, called back and situation reviewed
FULL CODE
extensive, complex visit
Anticipated Discharge: > 48 hours
Subjective/Interval History
-
Date of Service: June 29, 2023
Still with cough, remains weak
Objective Data
-
Labs:
Laboratory Results
06/29/23
05:03
WBC 5.7
Hgb 8.6 L
Hct 25.6 L
Plt Count 125 L
PT 18.7 H
INR 1.54
Sodium 138
Potassium 4.0
Chloride 105
Carbon Dioxide 23
BUN 54 H
Creatinine 3.3 H
Glucose 108 H
Calcium 8.0 L
Total Bilirubin 1.0
AST 31
ALT 21
Alkaline Phosphatase 60
Vital Signs:
Vital Signs
Temp Pulse Resp BP Pulse Ox
98.3 F 102 31 106/55 92
06/29/23 11:14 06/29/23 10:00 06/29/23 10:00 06/29/23 10:00 06/29/23 10:04
I&O
06/28/23 06/29/23 06/30/23
06:59 06:59 06:59
Intake Total 950 / 950 800 / 800 120 / 120
Output Total 500 / 500 825 / 825 200 / 200
Balance 450 / 450 -25 / -25 -80 / -80
Review of Systems
-
History Source: Patient and Coordinated Provider
Constitutional: Reports Fever (102.3 today)
EENT: Reports No Symptoms Reported
Respiratory: Reports No Symptoms and Cough (wet cough); Denies Trouble Breathing
Cardiac: Reports No Symptoms; Denies Chest Pain
Abdomen/GI: Reports No Symptoms; Denies Abdominal Pain or Constipated (had large BM today that was guiac pos)
Genitourinary: Reports No Symptoms
Physical Exam
-
General: Well Developed, No Apparent Distress, Appears Chronically Ill and Cachectic
HEENT: Normocephalic, Atraumatic and Moist Mucous Membranes
Respiratory: Clear to Auscultation and Rhonchi (very rhonchus cough)
Cardiac: Regular Rhythm and S1/S2
GI: Soft, Nontender and Nondistended
--- NOTE | 2023-06-29 12:49 | W.PN.NEPH.PH ---
Today's Communication / Plan
-
fever w/u per primary
hold lasix
Assessment/Plan
-
Assessment:
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
HAGMA
CLL
ishcemic cardiomyopathy
pAfib (on AC)
BPH
constipation
BRBPR
Plan:
GER-cr slightly better at 3.3 holding lasix, follow bladder scan 281cc
wt is down significantly today?
febrile since last night, w/u per primary
on po abx from before
hb better at 8.6
BPs stable , cont to hold CCB
labs in am
d.w pt
-
-
Date of Service: June 29, 2023
CC / HPI / ROS
-
Chief Complaint:
GER
History of Present Illness:
cr slightly better at 3.3, sodium normal
wt low today ?accurate
hb better 8.6 s/p PRBC 06/27
BP stable
febrile since last night
Review of Systems:
non oliguric with out carbajal
no cp or sob at rest, feels very tired
remains on O2
Labs
-
Labs:
WBC 5.7 10^3/uL (4.8-10.8) 06/29/23 05:03
RBC 3.01 10^6/uL (4.70-6.10) L 06/29/23 05:03
Hgb 8.6 g/dL (13.0-18.0) L 06/29/23 05:03
Hct 25.6 % (39.0-52.0) L 06/29/23 05:03
Plt Count 125 10^3/uL (130-400) L 06/29/23 05:03
Sodium 138 mmol/L (135-145) 06/29/23 05:03
Potassium 4.0 mmol/L (3.5-5.1) 06/29/23 05:03
Chloride 105 mmol/L (98-107) 06/29/23 05:03
Carbon Dioxide 23 mmol/L (22-30) 06/29/23 05:03
BUN 54 mg/dl (9-20) H 06/29/23 05:03
Creatinine 3.3 mg/dL (0.7-1.3) H 06/29/23 05:03
eGFR 17.93 06/29/23 05:03
Glucose 108 mg/dl (70-99) H 06/29/23 05:03
Calcium 8.0 mg/dl (8.4-10.2) L 06/29/23 05:03
Albumin 2.8 g/dl (3.5-5.0) L 06/29/23 05:03
Physical Exam
-
Vital Signs:
Vital Signs
Temp Pulse Resp BP Pulse Ox
98.3 F 102 31 106/55 92
06/29/23 11:14 06/29/23 10:00 06/29/23 10:00 06/29/23 10:00 06/29/23 10:04
Cardiovascular:: Regular rate and rhythm
Lung Excursion:: Normal (decreased)
Abdomen:: Nontender and Soft
Extremity Edema:: None: Bilateral:
Carbajal Catheter: No
--- NOTE | 2023-06-29 13:06 | PTCARENOTE ---
Patient had large bowel movement this shift, heme positive. Patient also has a fever this shift, treated with Tylenol. Informed Dr. Bowden of heme positive and fever. Infectious Disease to be consulted. Patients wounds were dressed and cleansed as
per doctors orders. Patient is denying pain while resting, only has discomfort during wound care.
[2023-06-29] MEDS: NOVOLOG FLEXPEN-LOW RESISTANCE 2 UNITS SC (13:31)
[2023-06-29] MEDS: COUMADIN 4 MG PO (13:33)
--- NOTE | 2023-06-29 15:46 | CON.ID ---
Consultation
-
Date/Time Consultation Requested: 06/29/2023 1308
Date/Time Consultation Performed: 06/29/2023 1523
Requesting Provider: Dr. Bowden
Performing Provider: Dr. Will
Reason for Consultation: Fever
Chief Complaint / Past History
History of Present Illness
Enrique Matthews is an 83-year-old man with a significant past medical history of myelofibrosis, polycythemia vera and history of CLL being evaluated at the request of Dr. Bowden in regards to fever. History is obtained from chart review, along with
patient interview.
The patient had a recent admission to [facility] from 06/02 through 06/13, during which time he was treated for pneumonia. He presented back on 06/20 secondary to lower abdominal discomfort and constipation, and found to have a fecal
impaction. He was disimpacted in the ER and discharged to home, but returned later that day for ongoing abdominal pain, fecal leakage from the rectum and significant fatigue and generalized weakness. He was diagnosed with proctitis and found to
have a leukocytosis, with colitis seen on CT. He was placed on ceftriaxone and metronidazole, and subsequently transition to amoxicillin. During his hospitalization he has had occasional fevers, but in the past 24 hours has spiked up to 102.3
degrees. He additionally reports cough, although he states it is intermittent, and comes and goes. He denies any shortness of breath. He denies any sputum production. Because of the fever, Infectious Diseases is asked to comment on additional
antibiotic management.
At this time he denies any headache. He denies any shortness of breath. He denies any chest pain. He denies any sputum production. He denies any abdominal pain, and no diarrhea.
Past History
Additional Past Medical History:
HTN
Dyslipidemia
DM type II
Atrial fibrillation
CLL
Myelofibrosis
Renal globulin deficiency
CAD
Polycythemia vera
BPH
Obstructive sleep apnea
CKD
Gout
COPD
MGUS
Past Surgical History: None
Allergy History:
atorvastatin Allergy (Verified 06/20/23 12:01)
? M-S pain
immune globulin,gamma (IgG) human Allergy (Verified 06/20/23 12:01)
Anaphylaxis
prednisone Allergy (Verified 06/20/23 12:01)
Unknown
Medications Reviewed: Yes
Current Antibiotics:
Augmentin
Social History
Tobacco: Non-Smoker
Alcohol: None
Drug: None
Personal:
Living: With Family
Employment: Retired
Review of Systems
Vital Signs
Temp Pulse Resp BP Pulse Ox
98.3 F 95 30 109/48 89
06/29/23 11:14 06/29/23 14:00 06/29/23 14:00 06/29/23 14:00 06/29/23 14:00
Physical Exam
Physical Exam
Constitutional: No Acute Distress, Comfortable, Chronically Ill and Non-toxic
Head: Normocephalic
Eyes: Pupils Equal, Pupils Round, No Conjunctival Hemorrhage and Sclera Anicteric
Oral: No Thrush and No Ulcers
Cardiovascular: S1/S2; Negative S3/S4 or Murmur
Pulmonary: Symmetric, Coarse and Non Labored; Negative Wheezes
Gastrointestinal: Soft, Non Tender, Non Distended, Normal Bowel Sounds, No Rebound and No Guarding
Genito-Urinary: Negative Suprapubic Tenderness
Extremities: Negative Edema, Cyanosis or Erythema
Musculoskeletal: Negative Joint Swelling or Joint Effusion
Skin: Warm and Dry; Negative Rash or Jaundice
Neurological: Awake and Alert
Psychological: Calm
.
Lab / Diagnostic Study Results
06/29/23 05:03
06/29/23 05:03
Abs Immat Gran (auto) 0.1 10^3/uL (0-0.05) H 06/29/23 05:03
Absolute Neuts (auto) 3.7 10^3/uL (1.4-6.5) 06/29/23 05:03
Absolute Lymphs (auto) 1.5 10^3/uL (1.2-3.4) 06/29/23 05:03
Absolute Monos (auto) 0.3 10^3/uL (0.1-0.6) 06/29/23 05:03
Absolute Basos (auto) 0.0 10^3/uL (0-0.2) 06/29/23 05:03
Immature Gran % 1.1 % (0-0.5) H 06/29/23 05:03
Neutrophils % 64.7 % (42.2-75.2) 06/29/23 05:03
Lymphocytes % 26.1 % (20.5-51.1) 06/29/23 05:03
Monocytes % 5.3 % (1.7-9.3) 06/29/23 05:03
Eosinophils % 2.1 % (0-6) 06/29/23 05:03
Basophils % 0.7 % (0-2) 06/29/23 05:03
PT 18.7 Sec (11.4-14.6) H 06/29/23 05:03
INR 1.54 06/29/23 05:03
Lactic Acid 0.7 mmol/L (0.7-2.0) 06/21/23 00:49
Ur Squamous Epith Cells 0-2 /LPF (Few) 06/21/23 00:49
Microbiology Results
Micro:
06/23/23 20:41 Blood Culture - Final
Blood/Venous No Growth - Final Report
06/23/23 18:37 Blood Culture - Final
Blood/Venous No Growth - Final Report
06/21/23 00:49 Blood Culture - Final
Blood/Venous No Growth - Final Report
06/21/23 00:49 Blood Culture - Final
Blood/Venous No Growth - Final Report
06/24/23 11:27 Nasal Screen MRSA (PCR) - Final
Nose MRSA not detected - performed by PCR methodology.
06/23/23 13:31 Influenza Types A & B (YOBANY) - Final
Nasal Swab Negative for Influenza A & B, NAAT
Negative results must be combined with clinical observations
and patient history.
Nucleic Acid Amplification test (NAAT)performed on the
[employer] platform.
06/21/23 00:49 Urine Culture - Final
Urine NO GROWTH
Imaging:
06/22/2023 CXR (2 view): Patchy airspace disease persists, and not significantly changed. This is consistent with bilateral pulmonic process on previous exams. Lateral view is limited technically. No new areas of airspace disease.
Assessment / Plan
Fever
Cough
HTN
Dyslipidemia
DM type II
Atrial fibrillation
CLL
Myelofibrosis
Renal globulin deficiency
CAD
Polycythemia vera
BPH
Obstructive sleep apnea
CKD
Gout
COPD
MGUS
Recommendations:
Given new fevers, will recheck a COVID antigen.
Check chest x-ray. (Ordered)
Blood cultures x 2 for temperature greater than 101 degrees.
Would hold on initiation of additional antibiotics at this time and follow temperature curve. If fevers persist, will then decide on initiation of further empiric antibiotics.
Monitor white count temperature curve.
[2023-06-29 16:34] LABS: COVID-19 Antigen Negative (Negative)
[2023-06-29] MEDS: PROSCAR 5 MG PO (17:17)
[2023-06-29 17:39] LABS: Glucose - Point of Care 154 mg/dl (70-99)
[2023-06-29] MEDS: NOVOLOG FLEXPEN-LOW RESISTANCE 1 UNITS SC (17:55)
[2023-06-29] MEDS: COLACE PO (21:48)
[2023-06-29] MEDS: CRESTOR 5 MG PO (21:55)
[2023-06-29 22:35] LABS: Glucose - Point of Care 207 mg/dl (70-99)
--- NOTE | 2023-06-29 22:49 | W.PN.ONC ---
Today's Communication / Plan
-
consider ECHO as his platelets improving aas well as WBC
Impression
Impression
- multifocal pneumonia
- colitis
- JAK2+ myelofibrosis
- acute on chronic anemia
- thrombocytopenia
Plan
Plan
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
- re-admission with weakness in setting of likely persistent multifocal pneumonia, possible colitis. CBC shows worsening anemia from baseline 8-9 g/dl to 6.3 g/dl. However hgb on presentation was 8.4 g/dl with drop after IV resuscitation, abx
initiation. CBC also with new thrombocytopenia that developed during last admission, was 119K on presentation with drop to 77K today after IVFs, abx.
- suspect worsening anemia, new thrombocyopenia due to acute infection, fluid administration, abx. Will hold home Jakafi for now with plts < 100K however can resume 5 mg BID
- CBC daily. transfuse for hgb < 7.0 g/dl, plts < 20K. pRBCs should be warmed due to hx of cold agglutinin as well as irradiated, leukoreduced due to prior fludarabine exposure.
will continue to follow.
Subjective/Objective
Subjective/Objective
fatigued
Vital Signs:
Vital Signs
Temp Pulse Resp BP Pulse Ox
98.8 F 91 26 105/85 93
06/29/23 19:20 06/29/23 22:00 06/29/23 22:00 06/29/23 22:00 06/29/23 22:00
Lab Results:
Laboratory Data
WBC 5.7 10^3/uL (4.8-10.8) 06/29/23 05:03
Hgb 8.6 g/dL (13.0-18.0) L 06/29/23 05:03
Plt Count 125 10^3/uL (130-400) L 06/29/23 05:03
PT 18.7 Sec (11.4-14.6) H 06/29/23 05:03
INR 1.54 06/29/23 05:03
eGFR 17.93 06/29/23 05:03
Orders
Orders
ECHO
[2023-06-30] VITALS (15 sets, daily range): BP systolic 85–134; BP diastolic 42–58; PULSE 84; O2SAT 95; BMI 22.0
[2023-06-30 06:21] LABS: % Basophils 0.5 % (0-2); % Eosinophils 1.8 % (0-6); % Immature Granulocytes 0.9 % (0-0.5); % Lymphocytes 23.3 % (20.5-51.1); % Neutrophils 69.5 % (42.2-75.2); Absolute Eosinophils 0.1 10^3/uL (0-0.7); Absolute Immature Granulocytes 0.1 10^3/uL (0-0.05); Absolute Lymphocytes 1.3 10^3/uL (1.2-3.4); Absolute Monocytes 0.2 10^3/uL (0.1-0.6); Absolute Neutrophils 3.8 10^3/uL (1.4-6.5); Hematocrit 22.5 % (39.0-52.0); Hemoglobin 7.6 g/dL (13.0-18.0); Mean Corp Hgb Conc. 33.8 g/dL (33.0-37.0); Mean Corpuscular Hgb 28.9 pg (27.0-31.0); Mean Corpuscular Volume 85.6 fL (80.0-94.0); Mean Platelet Volume 11.3 fL (7.4-10.4); Nucleated Red Blood Cells % 0 % (-); Platelet Count 117 10^3/uL (130-400); Red Blood Cell Count 2.63 10^6/uL (4.70-6.10); Red Cell Dist. Width 17.2 % (11.5-14.5); White Blood Cell Count 5.5 10^3/uL (4.8-10.8)
[2023-06-30 06:43] LABS: ALT (SGPT) 20 U/L (0-50); AST (SGOT) 30 U/L (17-59); Albumin 2.7 g/dl (3.5-5.0); Alkaline Phosphatase 52 U/L (38-126); Blood Urea Nitrogen 50 mg/dl (9-20); Calcium 7.6 mg/dl (8.4-10.2); Carbon Dioxide 19 mmol/L (22-30); Chloride 107 mmol/L (98-107); Estimated Creatinine Clearance 20 ml/min; Glucose 96 mg/dl (70-99); Sodium 132 mmol/L (135-145); Total Bilirubin 0.8 mg/dl (0.2-1.3); eGFR 20.94
[2023-06-30 06:51] LABS: INR 1.26; PT 16.1 Sec (11.4-14.6)
[2023-06-30 08:17] LABS: Glucose - Point of Care 105 mg/dl (70-99)
[2023-06-30] MEDS: MUCINEX 600 MG PO ×2 (09:17→21:46)
[2023-06-30] MEDS: PACERONE 200 MG PO (09:17)
[2023-06-30] MEDS: NOVOLOG FLEXPEN-LOW RESISTANCE SC ×2 (09:17→13:32)
[2023-06-30] MEDS: COLACE 100 MG PO ×2 (09:18→21:46)
[2023-06-30] MEDS: ASPIR LOW (ENTERIC COATED) 81 MG PO (09:19)
[2023-06-30] MEDS: PROTONIX 40 MG PO (09:19)
[2023-06-30] MEDS: AUGMENTIN 500 MG/125 MG 1 TABLET PO ×2 (09:19→21:46)
[2023-06-30] MEDS: MYCOSTATIN ORAL SUSPENSION 5 ML PO ×4 (09:20→21:45)
[2023-06-30] MEDS: MIRALAX PO (09:21)
[2023-06-30] MEDS: NITRO-DUR 0.599999999999999978 MG TRANSDERM (09:22)
[2023-06-30] MEDS: NEURONTIN 100 MG PO ×2 (09:23→21:46)
[2023-06-30] MEDS: LIDOCAINE 4% PATCH 1 PATCH TOPICAL (09:23)
[2023-06-30] MEDS: NON-FORMULARY ITEM 1 UNIT PO ×2 (09:25→21:47)
--- NOTE | 2023-06-30 09:29 | W.PN.ID1 ---
Date of Service
Date of Service: June 30, 2023
Today's Communication
Continue Augmentin. Trend temperatures.
Assessment / Plan
Fever
Cough
HTN
Dyslipidemia
DM type II
Atrial fibrillation
CLL
Myelofibrosis
Renal globulin deficiency
CAD
Polycythemia vera
BPH
Obstructive sleep apnea
CKD
Gout
COPD
MGUS
Recommendations:
Fever appears to have been isolated. COVID antigen negative.
CXR reveals improvement in prior seen infiltrates.
Continue with current course of Augmentin.
Blood cultures x 2 for temperature greater than 101 degrees.
Would hold on initiation of additional antibiotics at this time and follow temperature curve. If fevers persist, will then decide on initiation of further empiric antibiotics.
Monitor white count temperature curve.
Chief Complaint
-: Fever
Subjective / Review of Systems
Review of Systems: No Fever, No Chills, No Pharyngitis and No Cough
Vital Signs / Physical Exam
Vital Signs
Vital Signs
Temp Pulse Resp BP Pulse Ox
98.0 F 90 23 121/50 94
06/30/23 07:55 06/30/23 09:17 06/30/23 06:00 06/30/23 09:17 06/30/23 06:00
Physical Exam
Constitutional: No Acute Distress, Comfortable and Non-toxic
Eyes: Sclera Anicteric
Cardiovascular: S1/S2; Negative S3/S4
Pulmonary: Non Labored; Negative Wheezes
Gastrointestinal: Soft, Non Tender and Non Distended
Neurological: Awake and Alert
Psychological: Calm
Objective Data
Lab Data
Lab Results
06/30/23 06:12
06/30/23 06:12
PT 16.1 Sec (11.4-14.6) H 01/28/24 06:12
INR 1.26 06/30/23 06:12
Estimated Creat Clear 20 ml/min 06/30/23 06:12
Lactic Acid 0.7 mmol/L (0.7-2.0) 06/21/23 00:49
Total Bilirubin 0.8 mg/dl (0.2-1.3) 06/30/23 06:12
AST 30 U/L (17-59) 06/30/23 06:12
ALT 20 U/L (0-50) 06/30/23 06:12
Alkaline Phosphatase 52 U/L (38-126) 06/30/23 06:12
Most recent labs reviewed.
Chest X-Ray: Image Reviewed and Report Reviewed
Micro Results:
06/23/23 20:41 Blood Culture - Final
Blood/Venous No Growth - Final Report
06/23/23 18:37 Blood Culture - Final
Blood/Venous No Growth - Final Report
06/21/23 00:49 Blood Culture - Final
Blood/Venous No Growth - Final Report
06/21/23 00:49 Blood Culture - Final
Blood/Venous No Growth - Final Report
06/24/23 11:27 Nasal Screen MRSA (PCR) - Final
Nose MRSA not detected - performed by PCR methodology.
06/23/23 13:31 Influenza Types A & B (YOBANY) - Final
Nasal Swab Negative for Influenza A & B, NAAT
Negative results must be combined with clinical observations
and patient history.
Nucleic Acid Amplification test (NAAT)performed on the
[employer] platform.
06/21/23 00:49 Urine Culture - Final
Urine NO GROWTH
Imaging:
06/29/2023 CXR (portable): Mild bilateral hazy interstitial airspace disease in the perihilar regions extending into the mid and lower portions of both lungs, significantly improved but incompletely resolved when compared to the prior study.
06/22/2023 CXR (2 view): Patchy airspace disease persists, and not significantly changed. This is consistent with bilateral pulmonic process on previous exams. Lateral view is limited technically. No new areas of airspace disease.
Care Review
Plan reviewed with: Physician (Hospitalist)
--- NOTE | 2023-06-30 12:57 | PTCARENOTE ---
Pt AAO 2-3 . Flat slow to respond. O2 to 4 l as pt was desating. Breaths are shallow. Pt voiding 50- 100 at a time. Pt has a poor appetite . Encouraging pt to eat
[2023-06-30 13:38] LABS: Glucose - Point of Care 142 mg/dl (70-99)
--- NOTE | 2023-06-30 13:43 | W.PN.HOSP.TC ---
Today's Communication/Plan
-
follow labs
continue current Tx
Assessment / Plan
Assessment / Plan
Proctitis likely 2/2 constipation
Leukocytosis resolved
-colitis seen on CT; currently patient without abdominal pain; no diarrhea
-continue abx
-low residue diet
Mutifocal PNA
Suspected sepsis(fever, tachypnea)
Acute hypoxic respiratory insufficiency secondary to above
switched abx to augmentin
fever resolved, recurred again yesterday
blood culture Negative
COVID,flu - negative.
Was recently here with pneumonia. Was evaluated by speech and patient deferred VSE
yesterday with fever and cough, appreciate input from ID
06/29 CXR Mild bilateral interstitial pneumonia, significantly improved but incompletely resolved when compared with the prior study
Secondary myeloproliferative disorder/polycythemia vera
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
Thrombocytopenia improving, hematology started patient back on Jakafi but at a lower dose 5 mg twice daily. Input of Onc noted
As per onc, if pt requires transfusion, would need warming and irradiated blood products
Reviewed with Dr. Mchugh
Acute on Chronic anemia
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 Alexis outpatient. 1 unit PRBC 06/21, need irradiated blood product. another unit 06/22 for hemoglobin 6.7. hematology following.
hgb 06/27 6.1; transfused another unit-->06/28 7.3-->06/29 8.6-->06/30 7.6
-receives Epo as outpatient
-if requires transfusion needs irradiated blood products given hx fludarabine 2005
mild chest discomfort
EKG non ischemic; trop wnl
monitor
lidocaine patch
hx of HTN
holding metoprolol
hold amlodipine for now
Constipation s/p disimpaction and enema on admission
resolved
Metabolic Acidosis resolved
Acute on chronic kidney disease
-creatinine seems to be slowly rising over past 2 months (was 1.8 beginning of May)
Lasix restarted
-Nephrology following
now off bicarb gtt
-hold TRAP OPERATOR colchicine, Farxiga and Febuxostat
BUN/Creat 95/3.7-->68/2.8-->51/2.5-->45/3.1-->51/3.4-->54/3.3
Mild hyponatremia
resolved
paroxysmal Atrial Fibrillation on coumadin
went to afib with rvr 06/26; now converted back to normal sinus rhythm
-cw amiodarone, hold metoprolol
-daily INR; hold 2 mg Coumadin
INR 2.51-->2.86-->3.60-->3.19-->2.55-->1.54-->1.26
will resume Coumadin, extra dose again now
cocyx ulcer with pilondial cyst
monitor for abscess
per patient he had cyst in past
advised patient on wearing loose clothing
if worse then consult colorectal
Hx ischemic cardiomyopathy with improvement of EF 50-55%
CAD with hx PCI; know residual CAD with decision made for medical therapy (05/10/23)
BPH
-TRAP OPERATOR finasteride
DM II
-not on home meds
-ISS low
DVT PPx - TRAP OPERATOR coumadin
very complex situation
FULL CODE
extensive, complex visit
Anticipated Discharge: > 48 hours
Subjective/Interval History
-
Date of Service: June 30, 2023
Many questions, though appears less ill today
Objective Data
-
Labs:
Laboratory Results
06/30/23
06:12
WBC 5.5
Hgb 7.6 L
Hct 22.5 L
Plt Count 117 L
PT 16.1 H
INR 1.26
Sodium 132 L
Potassium 4.0
Chloride 107
Carbon Dioxide 19 L
BUN 50 H
Creatinine 2.9 H
Glucose 96
Calcium 7.6 L
Total Bilirubin 0.8
AST 30
ALT 20
Alkaline Phosphatase 52
Vital Signs:
Vital Signs
Temp Pulse Resp BP Pulse Ox
98.2 F 79 25 108/47 97
06/30/23 11:30 06/30/23 12:00 06/30/23 12:00 06/30/23 12:00 06/30/23 12:00
I&O
06/29/23 06/30/23 07/01/23
06:59 06:59 06:59
Intake Total 800 / 800 360 / 360
Output Total 825 / 825 925 / 925 290 / 290
Balance -25 / -25 -565 / -565 -290 / -290
Review of Systems
-
History Source: Patient and Coordinated Provider
Constitutional: Reports Fever (102.3 06/29, none past 24 hrs)
EENT: Reports No Symptoms Reported
Respiratory: Reports No Symptoms and Cough (wet cough); Denies Trouble Breathing
Cardiac: Reports No Symptoms; Denies Chest Pain
Abdomen/GI: Reports No Symptoms; Denies Abdominal Pain or Constipated (had large BM today that was guiac pos)
Genitourinary: Reports No Symptoms
Physical Exam
-
General: Well Developed, No Apparent Distress, Appears Chronically Ill and Cachectic
HEENT: Normocephalic, Atraumatic and Moist Mucous Membranes
Respiratory: Clear to Auscultation and Rhonchi (very rhonchus cough noted on deep inspirations)
Cardiac: Regular Rhythm and S1/S2
GI: Soft, Nontender and Nondistended
--- NOTE | 2023-06-30 13:45 | W.PN.NEPH.PH ---
Today's Communication / Plan
-
labs in am
hold lasix
Assessment/Plan
-
Assessment:
GER on CKD
HAGMA
CLL
ishcemic cardiomyopathy
pAfib (on AC)
BPH
constipation
BRBPR
Plan:
GER-cr slightly better at 2.9 holding lasix, follow bladder scan 281cc
wt is down significantly
on po abx per ID
hb low with CLL
BPs stable , cont to hold CCB
labs in am
d.w pt
-
-
Date of Service: June 30, 2023
CC / HPI / ROS
-
Chief Complaint:
GER
History of Present Illness:
cr slightly better at 2.9, sodium low 132
wt decreasing
hblow at 7.6 s/p PRBC 06/27
BP stable
afebrile
Review of Systems:
non oliguric with out carbajal
no cp or sob at rest, feels very tired
remains on O2
Labs
-
Labs:
WBC 5.5 10^3/uL (4.8-10.8) 06/30/23 06:12
RBC 2.63 10^6/uL (4.70-6.10) L 06/30/23 06:12
Hgb 7.6 g/dL (13.0-18.0) L 06/30/23 06:12
Hct 22.5 % (39.0-52.0) L 06/30/23 06:12
Plt Count 117 10^3/uL (130-400) L 06/30/23 06:12
Sodium 132 mmol/L (135-145) L 06/30/23 06:12
Potassium 4.0 mmol/L (3.5-5.1) 06/30/23 06:12
Chloride 107 mmol/L (98-107) 06/30/23 06:12
Carbon Dioxide 19 mmol/L (22-30) L 06/30/23 06:12
BUN 50 mg/dl (9-20) H 06/30/23 06:12
Creatinine 2.9 mg/dL (0.7-1.3) H 06/30/23 06:12
eGFR 20.94 06/30/23 06:12
Glucose 96 mg/dl (70-99) 06/30/23 06:12
Calcium 7.6 mg/dl (8.4-10.2) L 06/30/23 06:12
Albumin 2.7 g/dl (3.5-5.0) L 06/30/23 06:12
Physical Exam
-
Vital Signs:
Vital Signs
Temp Pulse Resp BP Pulse Ox
98.2 F 79 25 108/47 97
06/30/23 11:30 06/30/23 12:00 06/30/23 12:00 06/30/23 12:00 06/30/23 12:00
Cardiovascular:: Regular rate and rhythm
Respiratory:: Bilateral: CTA
Lung Excursion:: Normal
Abdomen:: Nontender and Soft
Extremity Edema:: None: Bilateral:
Carbajal Catheter: No
[2023-06-30] MEDS: COUMADIN 4 MG PO (15:02)
[2023-06-30] MEDS: PROSCAR 5 MG PO (17:08)
[2023-06-30] MEDS: NOVOLOG FLEXPEN-LOW RESISTANCE 2 UNITS SC (17:37)
[2023-06-30 17:42] LABS: Glucose - Point of Care 215 mg/dl (70-99)
[2023-06-30 21:24] LABS: Glucose - Point of Care 166 mg/dl (70-99)
[2023-06-30] MEDS: CRESTOR 5 MG PO (21:46)
[2023-07-01] VITALS (13 sets, daily range): BP systolic 87–125; BP diastolic 35–97; BMI 22.3
[2023-07-01 05:11] LABS: % Basophils 0.4 % (0-2); % Eosinophils 2.3 % (0-6); % Immature Granulocytes 0.6 % (0-0.5); % Lymphocytes 23.7 % (20.5-51.1); % Monocytes 4.1 % (1.7-9.3); % Neutrophils 68.9 % (42.2-75.2); Absolute Eosinophils 0.1 10^3/uL (0-0.7); Absolute Lymphocytes 1.3 10^3/uL (1.2-3.4); Absolute Monocytes 0.2 10^3/uL (0.1-0.6); Absolute Neutrophils 3.7 10^3/uL (1.4-6.5); Hemoglobin 7.1 g/dL (13.0-18.0); Mean Corp Hgb Conc. 34.5 g/dL (33.0-37.0); Mean Corpuscular Hgb 29.7 pg (27.0-31.0); Mean Corpuscular Volume 86.2 fL (80.0-94.0); Mean Platelet Volume 11.4 fL (7.4-10.4); Nucleated Red Blood Cells % 0 % (-); Platelet Count 109 10^3/uL (130-400); Red Blood Cell Count 2.39 10^6/uL (4.70-6.10); Red Cell Dist. Width 17.3 % (11.5-14.5); White Blood Cell Count 5.3 10^3/uL (4.8-10.8)
[2023-07-01 05:25] LABS: INR 1.29; PT 16.4 Sec (11.4-14.6)
[2023-07-01 05:36] LABS: Blood Urea Nitrogen 58 mg/dl (9-20); Calcium 7.7 mg/dl (8.4-10.2); Carbon Dioxide 20 mmol/L (22-30); Chloride 103 mmol/L (98-107); Estimated Creatinine Clearance 20 ml/min; Glucose 96 mg/dl (70-99); Potassium 4.2 mmol/L (3.5-5.1); Sodium 133 mmol/L (135-145); eGFR 20.94
[2023-07-01 08:49] LABS: Glucose - Point of Care 97 mg/dl (70-99)
[2023-07-01] MEDS: NOVOLOG FLEXPEN-LOW RESISTANCE SC (09:15)
[2023-07-01] MEDS: NITRO-DUR 0.599999999999999978 MG TRANSDERM (09:21)
[2023-07-01] MEDS: LIDOCAINE 4% PATCH 1 PATCH TOPICAL (09:22)
[2023-07-01] MEDS: MYCOSTATIN ORAL SUSPENSION 5 ML PO ×4 (09:23→22:15)
[2023-07-01] MEDS: AUGMENTIN 500 MG/125 MG 1 TABLET PO (09:24)
[2023-07-01] MEDS: COLACE 100 MG PO ×2 (09:24→19:50)
[2023-07-01] MEDS: PACERONE 200 MG PO (09:25)
[2023-07-01] MEDS: MUCINEX 600 MG PO ×2 (09:25→19:50)
[2023-07-01] MEDS: PROTONIX 40 MG PO (09:25)
[2023-07-01] MEDS: NEURONTIN 100 MG PO ×2 (09:25→19:50)
[2023-07-01] MEDS: ASPIR LOW (ENTERIC COATED) 81 MG PO (09:25)
[2023-07-01] MEDS: NON-FORMULARY ITEM 1 UNIT PO ×2 (09:27→19:51)
--- NOTE | 2023-07-01 10:40 | W.PN.ID1 ---
Date of Service
Date of Service: July 01, 2023
Today's Communication
Monitor off antibiotics.
Assessment / Plan
Fever
Cough
HTN
Dyslipidemia
DM type II
Atrial fibrillation
CLL
Myelofibrosis
Renal globulin deficiency
CAD
Polycythemia vera
BPH
Obstructive sleep apnea
CKD
Gout
COPD
MGUS
Recommendations:
Fever improved/resolved. COVID antigen negative.
CXR reveals improvement in prior seen infiltrates.
Patient has completed his course of Augmentin.
Blood cultures x 2 for temperature greater than 101 degrees.
Monitor white count temperature curve.
����������������������������������������������������������
Chief Complaint
-: Fever
Subjective / Review of Systems
Review of Systems: No Fever, No Chills and No Headache
Vital Signs / Physical Exam
Vital Signs
Vital Signs
Temp Pulse Resp BP Pulse Ox
100 F 73 29 120/47 90
07/01/23 07:25 07/01/23 09:26 07/01/23 09:26 07/01/23 09:26 07/01/23 10:00
Physical Exam
Constitutional: No Acute Distress, Comfortable, Chronically Ill and Non-toxic
Eyes: Sclera Anicteric
Cardiovascular: S1/S2; Negative S3/S4
Pulmonary: Coarse and Non Labored; Negative Wheezes or Rales
Gastrointestinal: Soft, Non Tender and Non Distended
Neurological: Awake, Alert and Oriented
Psychological: Calm
Objective Data
Lab Data
Lab Results
07/01/23 05:00
07/01/23 05:00
PT 16.4 Sec (11.4-14.6) H 07/01/23 05:00
INR 1.29 07/01/23 05:00
Estimated Creat Clear 20 ml/min 07/01/23 05:00
Lactic Acid 0.7 mmol/L (0.7-2.0) 06/21/23 00:49
Total Bilirubin 0.8 mg/dl (0.2-1.3) 06/30/23 06:12
AST 30 U/L (17-59) 06/30/23 06:12
ALT 20 U/L (0-50) 06/30/23 06:12
Alkaline Phosphatase 52 U/L (38-126) 06/30/23 06:12
Most recent labs reviewed.
Micro Results:
06/23/23 20:41 Blood Culture - Final
Blood/Venous No Growth - Final Report
06/23/23 18:37 Blood Culture - Final
Blood/Venous No Growth - Final Report
06/21/23 00:49 Blood Culture - Final
Blood/Venous No Growth - Final Report
06/21/23 00:49 Blood Culture - Final
Blood/Venous No Growth - Final Report
06/24/23 11:27 Nasal Screen MRSA (PCR) - Final
Nose MRSA not detected - performed by PCR methodology.
06/23/23 13:31 Influenza Types A & B (YOBANY) - Final
Nasal Swab Negative for Influenza A & B, NAAT
Negative results must be combined with clinical observations
and patient history.
Nucleic Acid Amplification test (NAAT)performed on the
[employer] platform.
06/21/23 00:49 Urine Culture - Final
Urine NO GROWTH
Imaging:
06/29/2023 CXR (portable): Mild bilateral hazy interstitial airspace disease in the perihilar regions extending into the mid and lower portions of both lungs, significantly improved but incompletely resolved when compared to the prior study.
06/22/2023 CXR (2 view): Patchy airspace disease persists, and not significantly changed. This is consistent with bilateral pulmonic process on previous exams. Lateral view is limited technically. No new areas of airspace disease.
--- NOTE | 2023-07-01 10:50 | PTCARENOTE ---
Pt AAOx3, slow to respond slow speech. Pt has a flat affect. Lungs are coarse. Poor appetite
[2023-07-01] MEDS: MIRALAX PO (12:25)
[2023-07-01 13:20] LABS: Glucose - Point of Care 168 mg/dl (70-99)
[2023-07-01] MEDS: NOVOLOG FLEXPEN-LOW RESISTANCE 1 UNITS SC (13:25)
--- NOTE | 2023-07-01 13:25 | W.PN.HOSP.TC ---
Today's Communication/Plan
-
Monitor vital signs and see plan
Monitor hemoglobin
Echo per oncology
Continue with amio
Assessment / Plan
Assessment / Plan
Proctitis likely 2/2 constipation
Leukocytosis resolved
-colitis seen on CT; currently patient without abdominal pain; no diarrhea
-continue abx
-low residue diet
Mutifocal PNA
Suspected sepsis(fever, tachypnea)
Acute hypoxic respiratory insufficiency secondary to above
switched abx to augmentin; finished; montior off abx
follow fever curve
blood culture Negative
COVID,flu - negative.
Was recently here with pneumonia. Was evaluated by speech and patient deferred VSE
yesterday with fever and cough, appreciate input from ID
06/29 CXR Mild bilateral interstitial pneumonia, significantly improved but incompletely resolved when compared with the prior study
Secondary myeloproliferative disorder/polycythemia vera
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
Thrombocytopenia improving, hematology started patient back on Jakafi but at a lower dose 5 mg twice daily. Input of Onc noted
As per onc, if pt requires transfusion, would need warming and irradiated blood products
Echo ordered by oncology
Acute on Chronic anemia
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 Alexis outpatient. 1 unit PRBC 06/21, need irradiated blood product. another unit 06/22 for hemoglobin 6.7. hematology following.
CBC daily. transfuse for hgb < 7.0 g/dl, plts < 20K. pRBCs should be warmed due to hx of cold agglutinin as well as irradiated, leukoreduced due to prior fludarabine exposure.
-receives Epo as outpatient
-if requires transfusion needs irradiated blood products given hx fludarabine 2005
mild chest discomfort
EKG non ischemic; trop wnl
monitor
lidocaine patch
hx of HTN
holding metoprolol
hold amlodipine for now
Constipation s/p disimpaction and enema on admission
resolved
Metabolic Acidosis resolved
Acute on chronic kidney disease
-creatinine seems to be slowly rising over past 2 months (was 1.8 beginning of May)
Lasix restarted but now on hold per nephrology
-Nephrology following
now off bicarb gtt
-hold BIRD KEEPER colchicine, Farxiga and Febuxostat
Mild hyponatremia
Monitor
paroxysmal Atrial Fibrillation on coumadin
went to afib with rvr 06/26; now converted back to normal sinus rhythm
-cw amiodarone, hold metoprolol
-daily INR; hold 2 mg Coumadin
INR now 1.29
coumadin at 4mg
cocyx ulcer with pilondial cyst
monitor for abscess
per patient he had cyst in past
advised patient on wearing loose clothing
if worse then consult colorectal
Hx ischemic cardiomyopathy with improvement of EF 50-55%
CAD with hx PCI; know residual CAD with decision made for medical therapy (05/10/23)
BPH
-BIRD KEEPER finasteride
DM II
-not on home meds
-ISS low
DVT PPx - BIRD KEEPER coumadin
very complex situation
FULL CODE
General: Well Developed, No Apparent Distress, Appears Chronically Ill and Cachectic
HEENT: Normocephalic, Atraumatic and Moist Mucous Membranes
Respiratory: Clear to Auscultation and Rhonchi (very rhonchus cough noted on deep inspirations)
Cardiac: Regular Rhythm and S1/S2
GI: Soft, Nontender and Nondistended
Anticipated Discharge: 24 - 48 hours
Subjective/Interval History
-
Date of Service: July 01, 2023
denies pain
Objective Data
-
Labs:
Laboratory Results
07/01/23
05:00
WBC 5.3
Hgb 7.1 L
Hct 21.0 L
Plt Count 109 L
PT 16.4 H
INR 1.29
Sodium 133 L
Potassium 4.2
Chloride 103
Carbon Dioxide 20 L
BUN 58 H
Creatinine 2.9 H
Glucose 96
Calcium 7.7 L
Vital Signs:
Vital Signs
Temp Pulse Resp BP Pulse Ox
98.4 F 84 22 104/40 95
07/01/23 11:20 07/01/23 12:00 07/01/23 12:00 07/01/23 12:00 07/01/23 12:00
I&O
06/30/23 07/01/23 07/02/23
06:59 06:59 06:59
Intake Total 360 / 360 400 / 400
Output Total 925 / 925 740 / 740 200 / 200
Balance -565 / -565 -340 / -340 -200 / -200
--- NOTE | 2023-07-01 14:29 | W.PN.NEPH.PH ---
Today's Communication / Plan
-
UA
Assessment/Plan
-
Assessment:
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
HAGMA
CLL
ishcemic cardiomyopathy
pAfib (on AC)
BPH
constipation
BRBPR
Plan:
-follow BMP
-off diuretics
-check urine studies
-
-
Date of Service: July 01, 2023
CC / HPI / ROS
-
Chief Complaint:
GER
History of Present Illness:
cr stable at 2.9, sodium low 133
hgb low at 7.1 s/p PRBC 06/27
BP stable
afebrile
Review of Systems:
non oliguric with out carbajal
no cp or sob at rest, feels very tired
remains on O2
Labs
-
Labs:
WBC 5.3 10^3/uL (4.8-10.8) 07/01/23 05:00
RBC 2.39 10^6/uL (4.70-6.10) L 07/01/23 05:00
Hgb 7.1 g/dL (13.0-18.0) L 07/01/23 05:00
Hct 21.0 % (39.0-52.0) L 07/01/23 05:00
Plt Count 109 10^3/uL (130-400) L 07/01/23 05:00
Sodium 133 mmol/L (135-145) L 07/01/23 05:00
Potassium 4.2 mmol/L (3.5-5.1) 07/01/23 05:00
Chloride 103 mmol/L (98-107) 07/01/23 05:00
Carbon Dioxide 20 mmol/L (22-30) L 07/01/23 05:00
BUN 58 mg/dl (9-20) H 07/01/23 05:00
Creatinine 2.9 mg/dL (0.7-1.3) H 07/01/23 05:00
eGFR 20.94 07/01/23 05:00
Glucose 96 mg/dl (70-99) 07/01/23 05:00
Calcium 7.7 mg/dl (8.4-10.2) L 07/01/23 05:00
Albumin 2.7 g/dl (3.5-5.0) L 06/30/23 06:12
Physical Exam
-
Vital Signs:
Vital Signs
Temp Pulse Resp BP Pulse Ox
98.4 F 84 22 104/40 95
07/01/23 11:20 07/01/23 12:00 07/01/23 12:00 07/01/23 12:00 07/01/23 12:00
Cardiovascular:: Regular rate and rhythm
Respiratory:: Bilateral: Coarse
Lung Excursion:: Normal
Abdomen:: Nontender and Soft
Bowel Sounds:: Normal
Extremity Edema:: None: Bilateral:
[2023-07-01] MEDS: PROSCAR 5 MG PO (17:29)
[2023-07-01] MEDS: COUMADIN 4 MG PO (17:29)
[2023-07-01 17:36] LABS: Urine Albumin 1+ (Neg - Trace); Urine Bilirubin Negative (Negative); Urine Character Clear (Clear); Urine Color Yellow; Urine Glucose Negative (Negative); Urine Ketone Negative (Negative); Urine Leukocyte Negative (Negative); Urine Nitrite Negative (Negative); Urine Occult Blood Negative (Negative); Urine Specific Gravity 1.015 (<1.030); Urine Urobilinogen Negative (Neg - 1+)
[2023-07-01 17:44] LABS: Urine Red Blood Cell None Seen /HPF (0-2); Urine Squamous Cell 0-2 /LPF (Few); Urine White Cell 0-2 /HPF (0-5)
[2023-07-01 17:57] LABS: Urine Sodium 26 mmol/L (30-90)
[2023-07-01] MEDS: NOVOLOG FLEXPEN-LOW RESISTANCE 2 UNITS SC (18:05)
[2023-07-01 18:13] LABS: Glucose - Point of Care 204 mg/dl (70-99)
[2023-07-01] MEDS: CRESTOR 5 MG PO (22:15)
[2023-07-01 23:08] LABS: Glucose - Point of Care 222 mg/dl (70-99)
[2023-07-02] VITALS (19 sets, daily range): BP systolic 99–128; BP diastolic 37–69; PULSE 75; O2SAT 95; BMI 22.4
--- NOTE | 2023-07-02 01:06 | PTCARENOTE ---
Received pt at start of shift. aaox3, flat affect. Denies pain. SR, BBB & pac on monitor. 2LNC, no SOB noted. Q2T, pt refused some turns overnight. Lidocaine & nitro patch removed, pt denied any shoulder or chest pain. VSS. Took pills whole with
water, no issues. Call gibbons in reach, will monitor.
[2023-07-02 05:30] LABS: % Basophils 0.4 % (0-2); % Eosinophils 1.7 % (0-6); % Immature Granulocytes 1.5 % (0-0.5); % Monocytes 3.9 % (1.7-9.3); % Neutrophils 62.5 % (42.2-75.2); Absolute Eosinophils 0.1 10^3/uL (0-0.7); Absolute Immature Granulocytes 0.1 10^3/uL (0-0.05); Absolute Lymphocytes 1.4 10^3/uL (1.2-3.4); Absolute Monocytes 0.2 10^3/uL (0.1-0.6); Absolute Neutrophils 2.9 10^3/uL (1.4-6.5); Mean Corp Hgb Conc. 34.8 g/dL (33.0-37.0); Mean Corpuscular Hgb 28.9 pg (27.0-31.0); Mean Corpuscular Volume 83.1 fL (80.0-94.0); Nucleated Red Blood Cells % 0 % (-); Platelet Count 113 10^3/uL (130-400); Red Blood Cell Count 2.42 10^6/uL (4.70-6.10); Red Cell Dist. Width 17.3 % (11.5-14.5); White Blood Cell Count 4.6 10^3/uL (4.8-10.8)
[2023-07-02 05:38] LABS: INR 1.31; PT 16.5 Sec (11.4-14.6)
[2023-07-02 05:47] LABS: Hematocrit 20.1 % (39.0-52.0)
[2023-07-02 06:09] LABS: Blood Urea Nitrogen 58 mg/dl (9-20); Calcium 7.5 mg/dl (8.4-10.2); Carbon Dioxide 18 mmol/L (22-30); Chloride 103 mmol/L (98-107); Estimated Creatinine Clearance 20 ml/min; Glucose 94 mg/dl (70-99); Potassium 4.2 mmol/L (3.5-5.1); Sodium 133 mmol/L (135-145); eGFR 20.11
[2023-07-02] MEDS: COLACE 100 MG PO ×2 (08:03→19:43)
[2023-07-02] MEDS: MUCINEX 600 MG PO ×2 (08:03→19:44)
[2023-07-02] MEDS: MYCOSTATIN ORAL SUSPENSION 5 ML PO ×4 (08:03→20:02)
[2023-07-02] MEDS: PROTONIX 40 MG PO (08:03)
[2023-07-02] MEDS: LIDOCAINE 4% PATCH 1 PATCH TOPICAL (08:04)
[2023-07-02] MEDS: ASPIR LOW (ENTERIC COATED) 81 MG PO (08:04)
[2023-07-02] MEDS: NITRO-DUR 0.599999999999999978 MG TRANSDERM (08:04)
[2023-07-02] MEDS: NEURONTIN 100 MG PO ×2 (08:04→19:44)
[2023-07-02] MEDS: PACERONE 200 MG PO (08:04)
[2023-07-02] MEDS: MIRALAX PO (08:04)
[2023-07-02] MEDS: NON-FORMULARY ITEM 1 UNIT PO ×2 (08:05→19:44)
--- NOTE | 2023-07-02 08:15 | PTCARENOTE ---
Patient received from [employer] shift lead. Patient resting comfortably in bed. AAO, VSS. No events noted over night. No complaints of pain at this time although with buttock ulcers. Wound care do be done later. Currently on 2L N/C, attempting to wean.
Hgb 7.0, may get unit of blood later. Call gibbons in reach.
--- NOTE | 2023-07-02 09:23 | W.PN.ONC ---
Today's Communication / Plan
-
He's completed course of antibiotics, afebrile, 06/29 CXR showed significant improvement. Continue O2 as needed
Monitor CBC daily, would transfuse prbc if hgb <7 (or if hgb close to 7 and pending discharge)
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
Encouraged OOB and working w/ PT, will likely need SNF
Due for another Aranesp shopt in office 07/11/23. Would consider inpatient dose of ISREAL if anticipated SNF stay will delay outpatient ISREAL dose
D/c planning
Impression
Impression
- multifocal pneumonia, completed course of iv, then oral antibiotics
- JAK2+ myelofibrosis, on Jakafi, needing dose reductions - currently 5mg bid
- acute on chronic anemia
- thrombocytopenia
- pAfib, on coumadin
Plan
Plan
He's completed course of antibiotics, afebrile, 06/29 CXR showed significant improvement. Continue O2 as needed
Monitor CBC daily, would transfuse prbc if hgb <7 (or if hgb close to 7 and pending discharge)
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
Encouraged OOB and working w/ PT, will likely need SNF
Due for another Aranesp shopt in office 07/11/23. Would consider inpatient dose of ISREAL if anticipated SNF stay will delay outpatient ISREAL dose
D/c planning
Subjective/Objective
Subjective/Objective
no specific complaints, feels weak
Vital Signs:
Vital Signs
Temp Pulse Resp BP Pulse Ox
97.9 F 69 33 103/38 94
07/02/23 07:30 07/02/23 08:04 07/02/23 06:00 07/02/23 08:04 07/02/23 06:00
alert and oriented
RRR
coarse breath sounds with coughing
no LE edema
Lab Results:
Laboratory Data
WBC 4.6 10^3/uL (4.8-10.8) L 07/02/23 05:08
Hgb 7.0 g/dL (13.0-18.0) L 07/02/23 05:08
Plt Count 113 10^3/uL (130-400) L 07/02/23 05:08
PT 16.5 Sec (11.4-14.6) H 07/02/23 05:08
INR 1.31 07/02/23 05:08
eGFR 20.11 07/02/23 05:08
[2023-07-02 10:02] LABS: Glucose - Point of Care 107 mg/dl (70-99)
[2023-07-02] MEDS: NOVOLOG FLEXPEN-LOW RESISTANCE SC (10:46)
--- NOTE | 2023-07-02 10:54 | W.PN.NEPH.PH ---
Today's Communication / Plan
-
no lasix
Assessment/Plan
-
Assessment:
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
HAGMA
CLL
ishcemic cardiomyopathy
pAfib (on AC)
BPH
constipation
BRBPR
Plan:
-follow BMP
-off diuretics still. His weight is still much lower than Dec admit weight
-no lasix for now
-
-
Date of Service: July 02, 2023
CC / HPI / ROS
-
Chief Complaint:
GER
History of Present Illness:
cr stable at 3.0, sodium low 133
hgb low at 7.0 s/p PRBC 06/27
BP stable
afebrile
Review of Systems:
non oliguric with out carbajal
no cp or sob at rest, feels very tired
remains on O2
weights slowly increasing
Labs
-
Labs:
WBC 4.6 10^3/uL (4.8-10.8) L 07/02/23 05:08
RBC 2.42 10^6/uL (4.70-6.10) L 07/02/23 05:08
Hgb 7.0 g/dL (13.0-18.0) L 07/02/23 05:08
Hct 20.1 % (39.0-52.0) L* 07/02/23 05:08
Plt Count 113 10^3/uL (130-400) L 07/02/23 05:08
Sodium 133 mmol/L (135-145) L 07/02/23 05:08
Potassium 4.2 mmol/L (3.5-5.1) 07/02/23 05:08
Chloride 103 mmol/L (98-107) 07/02/23 05:08
Carbon Dioxide 18 mmol/L (22-30) L 07/02/23 05:08
BUN 58 mg/dl (9-20) H 07/02/23 05:08
Creatinine 3.0 mg/dL (0.7-1.3) H 07/02/23 05:08
eGFR 20.11 07/02/23 05:08
Glucose 94 mg/dl (70-99) 07/02/23 05:08
Calcium 7.5 mg/dl (8.4-10.2) L 07/02/23 05:08
Albumin 2.7 g/dl (3.5-5.0) L 06/30/23 06:12
Physical Exam
-
Vital Signs:
Vital Signs
Temp Pulse Resp BP Pulse Ox
97.9 F 69 33 103/38 94
07/02/23 07:30 07/02/23 08:04 07/02/23 06:00 07/02/23 08:04 07/02/23 06:00
Cardiovascular:: Regular rate and rhythm
Respiratory:: Bilateral: Coarse
Lung Excursion:: Normal
Abdomen:: Nontender and Soft
Bowel Sounds:: Normal
Extremity Edema:: None: Bilateral:
--- NOTE | 2023-07-02 12:35 | CM ---
Addendum entered by Landy Manzo RN 07/02/23 16:06:
Message from Cecily, [facility]; they will have an available bed for the patient tomorrow.
Met with patient and spoke with by phone; both agree to d/c tomorrow to [facility]. IMM completed.
Plan [facility] tomorrow by ambulance.
Original Note:
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 O2 2L. Seen by wound care nurse. PT & OT recommend skilled rehab.
Plan Jakafi needs to be sent with patient to SNF.
Plan [facility] when medically ready if bed available.
--- NOTE | 2023-07-02 13:17 | W.PN.ID1 ---
Date of Service
Date of Service: July 02, 2023
Today's Communication
Sign off.
Assessment / Plan
Fever
Cough
HTN
Dyslipidemia
DM type II
Atrial fibrillation
CLL
Myelofibrosis
Renal globulin deficiency
CAD
Polycythemia vera
BPH
Obstructive sleep apnea
CKD
Gout
COPD
MGUS
Recommendations:
Fever improved/resolved. COVID antigen negative.
CXR reveals improvement in prior seen infiltrates.
S/P course of Augmentin.
Observe off antibiotics.
Little more to offer from a Infectious Diseases standpoint.
Will see you again at your request.
����������������������������������������������������������
Chief Complaint
-: Fever and Other (Cough)
Subjective / Review of Systems
Review of Systems: No Fever and No Chills
Vital Signs / Physical Exam
Vital Signs
Vital Signs
Temp Pulse Resp BP Pulse Ox
97.9 F 69 33 103/38 97
07/02/23 07:30 07/02/23 08:04 07/02/23 06:00 07/02/23 08:04 07/02/23 11:25
Physical Exam
Constitutional: No Acute Distress, Comfortable and Non-toxic
Eyes: Sclera Anicteric
Cardiovascular: S1/S2; Negative S3/S4
Pulmonary: Coarse and Non Labored; Negative Wheezes
Gastrointestinal: Soft and Non Tender
Neurological: Awake and Alert
Psychological: Calm
Objective Data
Lab Data
Lab Results
07/02/23 05:08
07/02/23 05:08
PT 16.5 Sec (11.4-14.6) H 07/02/23 05:08
INR 1.31 07/02/23 05:08
Estimated Creat Clear 20 ml/min 07/02/23 05:08
Lactic Acid 0.7 mmol/L (0.7-2.0) 06/21/23 00:49
Total Bilirubin 0.8 mg/dl (0.2-1.3) 06/30/23 06:12
AST 30 U/L (17-59) 06/30/23 06:12
ALT 20 U/L (0-50) 06/30/23 06:12
Alkaline Phosphatase 52 U/L (38-126) 06/30/23 06:12
Most recent labs reviewed.
Micro Results:
06/23/23 20:41 Blood Culture - Final
Blood/Venous No Growth - Final Report
06/23/23 18:37 Blood Culture - Final
Blood/Venous No Growth - Final Report
06/21/23 00:49 Blood Culture - Final
Blood/Venous No Growth - Final Report
06/21/23 00:49 Blood Culture - Final
Blood/Venous No Growth - Final Report
06/24/23 11:27 Nasal Screen MRSA (PCR) - Final
Nose MRSA not detected - performed by PCR methodology.
06/23/23 13:31 Influenza Types A & B (YOBANY) - Final
Nasal Swab Negative for Influenza A & B, NAAT
Negative results must be combined with clinical observations
and patient history.
Nucleic Acid Amplification test (NAAT)performed on the
[employer] platform.
06/21/23 00:49 Urine Culture - Final
Urine NO GROWTH
Imaging:
06/29/2023 CXR (portable): Mild bilateral hazy interstitial airspace disease in the perihilar regions extending into the mid and lower portions of both lungs, significantly improved but incompletely resolved when compared to the prior study.
06/22/2023 CXR (2 view): Patchy airspace disease persists, and not significantly changed. This is consistent with bilateral pulmonic process on previous exams. Lateral view is limited technically. No new areas of airspace disease.
[2023-07-02] MEDS: NOVOLOG FLEXPEN-LOW RESISTANCE 1 UNITS SC ×2 (13:26→17:29)
[2023-07-02 13:36] LABS: Glucose - Point of Care 155 mg/dl (70-99)
--- NOTE | 2023-07-02 14:28 | W.PN.HOSP.TC ---
Today's Communication/Plan
-
Monitor vital signs and see plan
Monitor hemoglobin
Transfuse 1 unit today
Hold Lasix
Assessment / Plan
Assessment / Plan
Proctitis likely 2/2 constipation
Leukocytosis resolved
-colitis seen on CT; currently patient without abdominal pain; no diarrhea
-continue abx
-low residue diet
Mutifocal PNA
Suspected sepsis(fever, tachypnea)
Acute hypoxic respiratory insufficiency secondary to above
switched abx to augmentin; finished; montior off abx
follow fever curve
blood culture Negative
COVID,flu - negative.
Was recently here with pneumonia. Was evaluated by speech and patient deferred VSE
yesterday with fever and cough, appreciate input from ID
06/29 CXR Mild bilateral interstitial pneumonia, significantly improved but incompletely resolved when compared with the prior study
Secondary myeloproliferative disorder/polycythemia vera
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
Thrombocytopenia improving, hematology started patient back on Jakafi but at a lower dose 5 mg twice daily. Input of Onc noted
As per onc, if pt requires transfusion, would need warming and irradiated blood products
Echo ordered by oncology which is not much changed from before
Acute on Chronic anemia
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 Alexis outpatient. 1 unit PRBC 06/21, need irradiated blood product. another unit 06/22 for hemoglobin 6.7. hematology following.
CBC daily. transfuse for hgb < 7.0 g/dl, plts < 20K. pRBCs should be warmed due to hx of cold agglutinin as well as irradiated, leukoreduced due to prior fludarabine exposure.
-receives Epo as outpatient
-if requires transfusion needs irradiated blood products given hx fludarabine 2005
hgb 7 07/02; transfuse another unit
mild chest discomfort
EKG non ischemic; trop wnl
monitor
lidocaine patch
hx of HTN
holding metoprolol
hold amlodipine for now
Constipation s/p disimpaction and enema on admission
resolved
Metabolic Acidosis resolved
Acute on chronic kidney disease
-creatinine seems to be slowly rising over past 2 months (was 1.8 beginning of May)
Lasix restarted but now on hold per nephrology
-Nephrology following
now off bicarb gtt
-hold [employer] colchicine, Farxiga and Febuxostat
Mild hyponatremia
Monitor
paroxysmal Atrial Fibrillation on coumadin
went to afib with rvr 06/26; now converted back to normal sinus rhythm
-cw amiodarone, hold metoprolol
-daily INR
INR now 1.31
coumadin at 4mg
cocyx ulcer with pilondial cyst
monitor for abscess
per patient he had cyst in past
advised patient on wearing loose clothing
if worse then consult colorectal
Hx ischemic cardiomyopathy with improvement of EF 50-55%
CAD with hx PCI; know residual CAD with decision made for medical therapy (05/10/23)
BPH
-[employer] finasteride
DM II
-not on home meds
-ISS low
DVT PPx - CL[employer] BOL[employer]ANDER coumadin
very complex situation
FULL CODE
General: Well Developed, No Apparent Distress, Appears Chronically Ill and Cachectic
HEENT: Normocephalic, Atraumatic and Moist Mucous Membranes
Respiratory: Clear to Auscultation and Rhonchi (very rhonchus cough noted on deep inspirations)
Cardiac: Regular Rhythm and S1/S2
GI: Soft, Nontender and Nondistended
I spent a total of 53 minutes with the patient or on the floor. More than 50% of this time involved counseling and coordination of care.
Anticipated Discharge: Within 24 hours
Subjective/Interval History
-
Date of Service: July 02, 2023
denies pain
Objective Data
-
Labs:
Laboratory Results
07/02/23
05:08
WBC 4.6 L
Hgb 7.0 L
Hct 20.1 L*
Plt Count 113 L
PT 16.5 H
INR 1.31
Sodium 133 L
Potassium 4.2
Chloride 103
Carbon Dioxide 18 L
BUN 58 H
Creatinine 3.0 H
Glucose 94
Calcium 7.5 L
Vital Signs:
Vital Signs
Temp Pulse Resp BP Pulse Ox
97.5 F 68 28 100/41 95
07/02/23 11:25 07/02/23 14:00 07/02/23 14:00 07/02/23 12:00 07/02/23 14:00
I&O
07/01/23 07/02/23 07/03/23
06:59 06:59 06:59
Intake Total 400 / 400 960 / 960
Output Total 740 / 740 900 / 900 250 / 250
Balance -340 / -340 60 / 60 -250 / -250
[2023-07-02 17:15] LABS: Glucose - Point of Care 173 mg/dl (70-99)
[2023-07-02] MEDS: PROSCAR 5 MG PO (17:32)
[2023-07-02] MEDS: COUMADIN 4 MG PO (17:33)
[2023-07-02] MEDS: CRESTOR 5 MG PO (20:02)
[2023-07-02 21:29] LABS: Glucose - Point of Care 171 mg/dl (70-99)
[2023-07-03] VITALS (7 sets, daily range): BP systolic 107–119; BP diastolic 43–61; BMI 22.2
--- NOTE | 2023-07-03 04:21 | PTCARENOTE ---
assumed care of patient- no acute events overnight- pt q2t- turned with foam wedge- occasionally refuses turns- likes to be on left side. sacrum wound dressing CDI- flat affect- positive environment maintained, on 1L NC 96%. nitro patch and
lidocaine patch removed. care ongoing.
[2023-07-03 04:31] LABS: % Basophils 0.5 % (0-2); % Immature Granulocytes 1.1 % (0-0.5); % Lymphocytes 34.9 % (20.5-51.1); % Monocytes 5.2 % (1.7-9.3); % Neutrophils 56.3 % (42.2-75.2); Absolute Eosinophils 0.1 10^3/uL (0-0.7); Absolute Immature Granulocytes 0.1 10^3/uL (0-0.05); Absolute Lymphocytes 1.5 10^3/uL (1.2-3.4); Absolute Monocytes 0.2 10^3/uL (0.1-0.6); Absolute Neutrophils 2.5 10^3/uL (1.4-6.5); Hematocrit 22.6 % (39.0-52.0); Hemoglobin 7.8 g/dL (13.0-18.0); Mean Corp Hgb Conc. 34.5 g/dL (33.0-37.0); Mean Corpuscular Hgb 29.5 pg (27.0-31.0); Mean Corpuscular Volume 85.6 fL (80.0-94.0); Mean Platelet Volume 11.2 fL (7.4-10.4); Nucleated Red Blood Cells % 0 % (-); Platelet Count 111 10^3/uL (130-400); Red Blood Cell Count 2.64 10^6/uL (4.70-6.10); Red Cell Dist. Width 17.1 % (11.5-14.5); White Blood Cell Count 4.4 10^3/uL (4.8-10.8)
[2023-07-03 04:41] LABS: INR 1.38; PT 17.3 Sec (11.4-14.6)
[2023-07-03 04:54] LABS: Blood Urea Nitrogen 57 mg/dl (9-20); Calcium 7.7 mg/dl (8.4-10.2); Carbon Dioxide 18 mmol/L (22-30); Chloride 106 mmol/L (98-107); Estimated Creatinine Clearance 22 ml/min; Glucose 93 mg/dl (70-99); Potassium 4.3 mmol/L (3.5-5.1); Sodium 134 mmol/L (135-145); eGFR 22.82
[2023-07-03 08:27] LABS: Glucose - Point of Care 96 mg/dl (70-99)
--- NOTE | 2023-07-03 08:28 | PTCARENOTE ---
Patient received from magistrate assistant. Patient resting comfortably in bed. AAO, VSS. No events noted over night. No complaints of pain at this time although with buttock ulcers. Wound care do be done later. Currently on 1L N/C, attempting to wean.
Hgb 7.8. Call gibbons in reach.
[2023-07-03] MEDS: NOVOLOG FLEXPEN-LOW RESISTANCE SC ×2 (08:40→12:43)
[2023-07-03] MEDS: NITRO-DUR 0.599999999999999978 MG TRANSDERM (09:35)
[2023-07-03] MEDS: NEURONTIN 100 MG PO (09:36)
[2023-07-03] MEDS: COLACE 100 MG PO (09:36)
[2023-07-03] MEDS: MYCOSTATIN ORAL SUSPENSION 5 ML PO (09:36)
[2023-07-03] MEDS: MUCINEX 600 MG PO (09:36)
[2023-07-03] MEDS: ASPIR LOW (ENTERIC COATED) 81 MG PO (09:36)
[2023-07-03] MEDS: PROTONIX 40 MG PO (09:36)
[2023-07-03] MEDS: NON-FORMULARY ITEM 1 UNIT PO (09:36)
[2023-07-03] MEDS: PACERONE 200 MG PO (09:36)
[2023-07-03] MEDS: LIDOCAINE 4% PATCH TOPICAL (09:40)
[2023-07-03] MEDS: MIRALAX PO (09:41)
--- NOTE | 2023-07-03 11:43 | W.PN.HOSP.TC ---
Today's Communication/Plan
-
Monitor vital signs and see plan
Discharge today
Follow-up CBC and BMP at [facility] next week
patient will need to follow up with hematology outpatient
time of discharge 38minutes
Assessment / Plan
Assessment / Plan
Proctitis likely 2/2 constipation
Leukocytosis resolved
-colitis seen on CT; currently patient without abdominal pain; no diarrhea
-continue abx
-low residue diet
Mutifocal PNA
Suspected sepsis(fever, tachypnea)
Acute hypoxic respiratory insufficiency secondary to above
switched abx to augmentin; finished; montior off abx
follow fever curve
blood culture Negative
COVID,flu - negative.
Was recently here with pneumonia. Was evaluated by speech and patient deferred VSE
yesterday with fever and cough, appreciate input from ID
06/29 CXR Mild bilateral interstitial pneumonia, significantly improved but incompletely resolved when compared with the prior study
Secondary myeloproliferative disorder/polycythemia vera
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
Thrombocytopenia improving, hematology started patient back on Jakafi but at a lower dose 5 mg twice daily. Input of Onc noted
As per onc, if pt requires transfusion, would need warming and irradiated blood products
Echo ordered by oncology which is not much changed from before
Acute on Chronic anemia
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 Alexis outpatient. 1 unit PRBC 06/21, need irradiated blood product. another unit 06/22 for hemoglobin 6.7. hematology following.
transfuse for hgb < 7.0 g/dl, plts < 20K. pRBCs should be warmed due to hx of cold agglutinin as well as irradiated, leukoreduced due to prior fludarabine exposure.
-receives Epo as outpatient
-if requires transfusion needs irradiated blood products given hx fludarabine 2005
hgb 7 07/02; transfused another unit; now hgb 7.8
Spoke with hematology 07/03 regarding redness and they would like patient to follow-up with them outpatient and no inpatient treatment is necessary
mild chest discomfort
EKG non ischemic; trop wnl
monitor
lidocaine patch
hx of HTN
holding metoprolol
hold amlodipine for now
Constipation s/p disimpaction and enema on admission
resolved
Metabolic Acidosis resolved
Acute on chronic kidney disease
-creatinine seems to be slowly rising over past 2 months (was 1.8 beginning of May)
Lasix restarted but now on hold per nephrology; per nephrology 07/03 continue to hold Lasix Unless he started to gain wt and cr return to baseline
-Nephrology following
now off bicarb gtt
-hold [employer] colchicine, Farxiga and Febuxostat
Mild hyponatremia
Monitor
paroxysmal Atrial Fibrillation on coumadin
went to afib with rvr 06/26; now converted back to normal sinus rhythm
-cw amiodarone, hold metoprolol
-daily INR
INR now 1.38
coumadin at 4mg
cocyx ulcer with pilondial cyst
monitor for abscess
per patient he had cyst in past
advised patient on wearing loose clothing
if worse then consult colorectal
Hx ischemic cardiomyopathy with improvement of EF 50-55%
CAD with hx PCI; know residual CAD with decision made for medical therapy (05/10/23)
BPH
-[employer] finasteride
DM II
-not on home meds
-ISS low
DVT PPx - [employer] coumadin
very complex situation
FULL CODE
General: Well Developed, No Apparent Distress, Appears Chronically Ill and Cachectic
HEENT: Normocephalic, Atraumatic and Moist Mucous Membranes
Respiratory: Clear to Auscultation and Rhonchi (very rhonchus cough noted on deep inspirations)
Cardiac: Regular Rhythm and S1/S2
GI: Soft, Nontender and Nondistended
I spent a total of 52 minutes with the patient or on the floor. More than 50% of this time involved counseling and coordination of care.
Anticipated Discharge: Today
Subjective/Interval History
-
Date of Service: July 03, 2023
denies pain
Objective Data
-
Labs:
Laboratory Results
07/03/23
04:07
WBC 4.4 L
Hgb 7.8 L
Hct 22.6 L
Plt Count 111 L
PT 17.3 H
INR 1.38
Sodium 134 L
Potassium 4.3
Chloride 106
Carbon Dioxide 18 L
BUN 57 H
Creatinine 2.7 H
Glucose 93
Calcium 7.7 L
Vital Signs:
Vital Signs
Temp Pulse Resp BP Pulse Ox
98.0 F 64 33 119/56 95
07/03/23 07:30 07/03/23 09:36 07/03/23 06:00 07/03/23 09:36 07/03/23 11:06
I&O
07/02/23 07/03/23 07/04/23
06:59 06:59 06:59
Intake Total 960 / 960 525 / 525
Output Total 900 / 900 850 / 850 275 / 275
Balance 60 / 60 -325 / -325 -275 / -275
--- NOTE | 2023-07-03 11:59 | W.DCSUMMARY ---
Discharge Summary
Discharge Data
Date of Admission: 06/21/23
Date of Discharge: 07/03/23
-
Pending Results: No
Hospital Course
83-year-old male with past medical history of autoimmune hemolytic anemia, hypertension, chronic kidney disease, paroxysmal atrial fibrillation put on dual cyst, ischemic cardiomyopathy, BPH, type 2 diabetes mellitus, myeloproliferative
disorder/polycythemia vera, CLL status postchemotherapy came to the hospital with proctitis secondary to constipation. Patient also had multifocal pneumonia on this hospitalization. Patient was initially treated with IV antibiotics which was later
transitioned to oral. Patient finished antibiotics prior to discharge. Patient was seen by infectious disease throughout hospitalization. Patient hospital course was complicated by multiple blood transfusion due to his history of autoimmune
hemolytic anemia. Patient was seen by hematology throughout hospitalization. Patient platelets were initially low so his Jakafi was held. Once his platelets started to improve he was started on lower dose of Jakafi. Hematology recommended
patient to be transfused for hemoglobin less than 7. Patient also had acute on chronic kidney disease for which she was seen by nephrology throughout hospitalization. Initially for his metabolic acidosis he was started on bicarb drip. His
creatinine continues to fluctuate fair at times he required Lasix however prior to the discharge Lasix was on hold. Nephrology recommended patient to restart Lasix when he gains weight and his creatinine returned to his baseline. Due to patient
normal blood pressure his metoprolol and amlodipine was also held. Patient INR was initially supratherapeutic however prior to the discharge it was 1.38. Patient Coumadin dose was 4 mg and he was instructed to get his INR checked at SNF. Once
patient's symptoms improved, he was then discharged to SNF with close follow-up with all his physicians outpatient.
Discharge Plan
-
Patient Disposition: Alf/SNF
Discharge Diagnosis/Procedures: Proctitis likely 2/2 constipation
Mutifocal pneumonia
Myeloproliferative disorder/polycythemia vera
Autoimmune hemolytic anemia
Acute on chronic anemia
Constipation
Metabolic acidosis
Acute on chronic kidney disease
Paroxysmal atrial fibrillation on Coumadin
Coccyx ulcer with pilondial cyst
Diet: 2 Gram Sodium and Low Residue
Activity: With assistance and As tolerated
Driving Restrictions: Not until seen by your Dr
Bathing Restrictions: None
Blood Work: CBC and BMP next week
check INR on wednesday 07/05
Activity Restrictions/Additional Instructions:
Wound Care Instructions
Coccyx and watson anal ulcers-rinse with soap and water (use watson bottle) or rinse with 1/4 strength Dakin's solution, miconazole powder prn yeasty red periwound skin, barrier ointment to periwound skin (i.e. Calazime), honey gel, cover with non woven
gauze pads or ABD pad, secure with mesh underwear or incontinent brief. Change dressings daily and prn drainage/soilage.
Make appointment with sewage screen operator to evaluate R posterior groin skin lesion.
Air mattress.
Elevate heels off bed with pillow/s
Pressure redistributing chair cushion (i.e. Air, Roho).
Follow up at wound care center call for an appointment.
per nephrology 07/03 continue to hold Lasix Unless he started to gain wt and cr return to baseline
Referrals:
Rob Santos MD [Family Provider] -
López Delgado DO [Active] -
Eddie Alexis MD [Active] - 07/11/23 10:15 am
Prescriptions:
New
docusate sodium 100 mg Capsule
100 mg PO BID Qty: 0 0RF
Dakin's Solution 0.125 % Solution
1 applic topical BIDPRN PRN (Reason: to clean watson/coccyx ulcers) Qty: 0 0RF
miconazole nitrate [Miconazorb AF] 2 % Powder
1 applic topical BIDPRN PRN (Reason: yeasty red skin. ) Qty: 0 0RF
lidocaine 4 % Adhesive Patch,Medicated
1 patch topical DAILY Qty: 0 0RF
polyethylene glycol 3350 [HealthyLax] 17 gram Powder In Packet
17 g PO DAILY Qty: 0 0RF
pantoprazole 40 mg Tablet,Delayed Release (Dr/Ec)
40 mg PO DAILY Qty: 0 0RF
sodium bicarbonate 650 mg tablet
650 mg PO DAILY Qty: 30 0RF
Continued
ipratropium-albuterol 3 ML solution for nebulization
3 ml inhalation R BID PRN (Reason: Lung/Breathing Issues)
mupirocin 1 APPLIC ointment
1 applic topical DAILYPRN PRN (Reason: scalp and cheek )
Patient Comments:
Apply to top of scalp
multivitamin with folic acid [Tab-A-Gualberto] 1 TABLET tablet
1 tab PO DAILY
guaifenesin 400 MG tablet
600 mg PO BID
acetaminophen [Tylenol Extra Strength] 500 MG tablet
1,000 mg PO Q6HPRN PRN (Reason: mild pain)
rosuvastatin 5 MG tablet
5 mg PO HS
nitroglycerin [Nitro-Dur] 0.6 mg/hr Patch 24 Hour
1 patch TRANSDERMAL DAILY Qty: 0
ferrous sulfate 325 mg (65 mg iron) Tablet
325 mg PO QPM Qty: 0
gabapentin 100 mg Capsule
100 mg PO BID
finasteride 5 mg Tablet
5 mg PO QPM
budesonide [Pulmicort] 0.5 mg/2 mL Suspension For Nebulization
0.5 mg INHALATION DAILY PRN (Reason: Lung/Breathing Issues)
amiodarone 200 mg tablet
200 mg PO DAILY Qty: 30 0RF
Patient Comments:
06/20/2023: Pt states he hasnt started this yet.
nitroglycerin 0.3 mg tablet, sublingual
0.3 mg sublingual [id number] PRN (Reason: chest pain)
aspirin 81 mg Tablet,Delayed Release (Dr/Ec)
81 mg PO DAILY
colchicine 0.6 mg Tablet
0.6 mg PO DAILY PRN (Reason: gout)
dapagliflozin propanediol [Farxiga] 5 mg tablet
5 mg PO DAILY
Changed
Jakafi 20 mg tablet
5 mg PO BID Qty: 0 0RF
warfarin 3 mg Tablet
4 mg PO QPM Qty: 0 0RF
Rx Instructions:
taken w/ 0.5mg = 3.5mg
Held
febuxostat 40 mg Tablet
40 mg PO DAILY
Hold Instructions: Until renal function improve
metoprolol succinate 25 mg Tablet Extended Release 24 Hr
25 mg PO DAILY Qty: 30 0RF
Hold Instructions: until bp>140/90
metoprolol succinate 25 mg tablet extended release 24 hr
12.5 mg PO HS
Hold Instructions: until Bp>140/90
furosemide [Lasix] 40 mg tablet
40 mg PO DAILY
Hold Instructions: continue to hold Lasix Unless he started to gain wt and cr return to baseline
Discontinued
amlodipine 10 mg Tablet
10 mg PO DAILY Qty: 30 0RF
warfarin 1 mg Tablet
0.5 mg PO QPM
Rx Instructions:
taken w/ 3mg = 3.5mg
Discharge Orders:
Discharge Patient (As Directed); Ordered 07/03/23
Ordered By: Ryan Miles
Discharge Date and Time
Discharge Date/Time: 07/03/23 15:15
--- NOTE | 2023-07-03 12:17 | W.PN.NEPH.PH ---
Today's Communication / Plan
-
see plan
Assessment/Plan
-
Assessment:
GER on CKD-cr 1.8-2
HAGMA
CLL
ishcemic cardiomyopathy
pAfib (on AC)
BPH
constipation
BRBPR
Plan:
GER-cr slow to improve remains above baseline
wts are stable hence con to hold lasix
may resume when cr return baseline
BMP on Saturday and also next week
follow Dr Najera
may add sodium bicarb 650mg daily for met acidosis
BP are stable
for SNF today
-
-
Date of Service: July 03, 2023
CC / HPI / ROS
-
Chief Complaint:
GER
History of Present Illness:
cr better at 2.7, sodium low 134
hgb low at 7.8 s/p PRBC 06/27. 07/02
BP stable
afebrile
Review of Systems:
non oliguric with out carbajal
no cp or sob at rest, feels very tired
remains on O2
weights stable
Labs
-
Labs:
WBC 4.4 10^3/uL (4.8-10.8) L 07/03/23 04:07
RBC 2.64 10^6/uL (4.70-6.10) L 07/03/23 04:07
Hgb 7.8 g/dL (13.0-18.0) L 07/03/23 04:07
Hct 22.6 % (39.0-52.0) L 07/03/23 04:07
Plt Count 111 10^3/uL (130-400) L 07/03/23 04:07
Sodium 134 mmol/L (135-145) L 07/03/23 04:07
Potassium 4.3 mmol/L (3.5-5.1) 07/03/23 04:07
Chloride 106 mmol/L (98-107) 07/03/23 04:07
Carbon Dioxide 18 mmol/L (22-30) L 07/03/23 04:07
BUN 57 mg/dl (9-20) H 07/03/23 04:07
Creatinine 2.7 mg/dL (0.7-1.3) H 07/03/23 04:07
eGFR 22.82 07/03/23 04:07
Glucose 93 mg/dl (70-99) 07/03/23 04:07
Calcium 7.7 mg/dl (8.4-10.2) L 07/03/23 04:07
Albumin 2.7 g/dl (3.5-5.0) L 06/30/23 06:12
Physical Exam
-
Vital Signs:
Vital Signs
Temp Pulse Resp BP Pulse Ox
98.0 F 64 33 119/56 95
07/03/23 07:30 07/03/23 09:36 07/03/23 06:00 07/03/23 09:36 07/03/23 11:06
Cardiovascular:: Regular rate and rhythm
Respiratory:: Bilateral: CTA
Lung Excursion:: Normal
Abdomen:: Nontender and Soft
Extremity Edema:: None: Bilateral:
Carbajal Catheter: No
--- NOTE | 2023-07-03 12:32 | CM ---
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 O2 1L. Seen by wound care nurse. PT & OT recommend skilled rehab.
Message from Cecily, [facility]; they are able to accept the patient today. for report [phone], fax [phone].
Message to nurse Paul; the patient's supply of Jakafi needs to be sent with patient to SNF.
Spoke with patient who agrees with d/c today to [facility] by ambulance. IMM completed yesterday.
Phone call to patient's Sharon; left message notifying her of d/c today.
Plan [facility] today by ambulance.
[2023-07-03 12:33] LABS: Glucose - Point of Care 147 mg/dl (70-99)
--- NOTE | 2023-07-03 13:01 | W.PN.ID1 ---
Date of Service
Date of Service: July 03, 2023
Today's Communication
continue off abx.
Assessment / Plan
Fever
- appears resolved.
Cough
- stable
HTN
Dyslipidemia
DM type II
Atrial fibrillation
CLL
Myelofibrosis
Renal globulin deficiency
CAD
Polycythemia vera
BPH
Obstructive sleep apnea
CKD
Gout
COPD
MGUS
Recommendations:
Fever improved/resolved. COVID antigen negative.
CXR reveals improvement in prior seen infiltrates.
S/P course of Augmentin.
Observe off antibiotics.
����������������������������������������������������������
Chief Complaint
-: Fever and Other (Cough)
Subjective / Review of Systems
Review of Systems: No Fever and No Chills
Vital Signs / Physical Exam
Vital Signs
Vital Signs
Temp Pulse Resp BP Pulse Ox
98.0 F 64 33 119/56 95
07/03/23 07:30 07/03/23 09:36 07/03/23 06:00 07/03/23 09:36 07/03/23 11:06
Physical Exam
Constitutional: No Acute Distress, Comfortable, Chronically Ill and Non-toxic
Cardiovascular: Regular Rate
Pulmonary: Non Labored; Negative Wheezes
Gastrointestinal: Non Distended
Neurological: Awake and Alert
Psychological: Calm
Objective Data
Lab Data
Lab Results
07/03/23 04:07
07/03/23 04:07
PT 17.3 Sec (11.4-14.6) H 07/03/23 04:07
INR 1.38 07/03/23 04:07
Estimated Creat Clear 22 ml/min 07/03/23 04:07
Lactic Acid 0.7 mmol/L (0.7-2.0) 06/21/23 00:49
Total Bilirubin 0.8 mg/dl (0.2-1.3) 06/30/23 06:12
AST 30 U/L (17-59) 06/30/23 06:12
ALT 20 U/L (0-50) 06/30/23 06:12
Alkaline Phosphatase 52 U/L (38-126) 06/30/23 06:12
Most recent labs reviewed.
Micro Results:
06/23/23 20:41 Blood Culture - Final
Blood/Venous No Growth - Final Report
06/23/23 18:37 Blood Culture - Final
Blood/Venous No Growth - Final Report
06/21/23 00:49 Blood Culture - Final
Blood/Venous No Growth - Final Report
06/21/23 00:49 Blood Culture - Final
Blood/Venous No Growth - Final Report
06/24/23 11:27 Nasal Screen MRSA (PCR) - Final
Nose MRSA not detected - performed by PCR methodology.
06/23/23 13:31 Influenza Types A & B (YOBANY) - Final
Nasal Swab Negative for Influenza A & B, NAAT
Negative results must be combined with clinical observations
and patient history.
Nucleic Acid Amplification test (NAAT)performed on the
[employer] platform.
06/21/23 00:49 Urine Culture - Final
Urine NO GROWTH
Imaging:
06/29/2023 CXR (portable): Mild bilateral hazy interstitial airspace disease in the perihilar regions extending into the mid and lower portions of both lungs, significantly improved but incompletely resolved when compared to the prior study.
06/22/2023 CXR (2 view): Patchy airspace disease persists, and not significantly changed. This is consistent with bilateral pulmonic process on previous exams. Lateral view is limited technically. No new areas of airspace disease.
--- NOTE | 2023-07-03 14:10 | PTCARENOTE ---
Report called to Johnna at [facility] [phone]
--- NOTE | 2023-07-03 15:18 | PTCARENOTE ---
Patient discharged to [facility] via ambulance. Patient left with all known belongings and copy of discharge paperwork that was discussed EMS and RN at facility.
== END 2023-07-03 15:15 | DRG 871 ==
LOC: IMU 01:36
PROVIDERS: Internal Medicine; Specialist; ADMITTING PHYSICIAN Student in an Organized Health Care Education/Training Program; ATTENDING PHYSICIAN Internal Medicine; CONSULT PHYSICIAN Internal Medicine Hematology & Oncology; CONSULT PHYSICIAN Internal Medicine Infectious Disease; EMERGENCY PHYSICIAN Emergency Medicine; FAMILY PHYSICIAN Family Medicine; OTHER PHYSICIAN Student in an Organized Health Care Education/Training Program
PROC: 30233N1 Transfusion of Nonautologous Red Blood Cells into Peripheral Vein, Percutaneous Approach (ICD-10-PCS; 2023-06-22)
DX: A41.9 Sepsis, unspecified organism (principal); J18.9 Pneumonia, unspecified organism; L89.153 Pressure ulcer of sacral region, stage 3; I50.32 Chronic diastolic (congestive) heart failure; I13.0 Hypertensive heart and chronic kidney disease with heart failure and stage 1 through stage 4 chronic kidney disease, or unspecified chronic kidney disease; J44.0 Chronic obstructive pulmonary disease with (acute) lower respiratory infection; E87.20 Acidosis, unspecified; N17.9 Acute kidney failure, unspecified; D47.1 Chronic myeloproliferative disease; C91.11 Chronic lymphocytic leukemia of B-cell type in remission; E87.1 Hypo-osmolality and hyponatremia; D59.10 Autoimmune hemolytic anemia, unspecified; K62.89 Other specified diseases of anus and rectum; R53.1 Weakness; N18.9 Chronic kidney disease, unspecified; E11.22 Type 2 diabetes mellitus with diabetic chronic kidney disease; E78.00 Pure hypercholesterolemia, unspecified; I25.10 Atherosclerotic heart disease of native coronary artery without angina pectoris; I48.0 Paroxysmal atrial fibrillation; I25.5 Ischemic cardiomyopathy; R06.89 Other abnormalities of breathing; R09.02 Hypoxemia; N40.0 Benign prostatic hyperplasia without lower urinary tract symptoms; G47.33 Obstructive sleep apnea (adult) (pediatric); M10.9 Gout, unspecified; D47.2 Monoclonal gammopathy; L05.91 Pilonidal cyst without abscess; R07.89 Other chest pain; D69.6 Thrombocytopenia, unspecified; K56.41 Fecal impaction; Z87.891 Personal history of nicotine dependence; Z95.5 Presence of coronary angioplasty implant and graft; Z82.49 Family history of ischemic heart disease and other diseases of the circulatory system; I25.2 Old myocardial infarction; Z79.01 Long term (current) use of anticoagulants; Z79.82 Long term (current) use of aspirin; Z79.51 Long term (current) use of inhaled steroids; Z88.8 Allergy status to other drugs, medicaments and biological substances; Z11.52 Encounter for screening for COVID-19; Z79.69 Long term (current) use of other immunomodulators and immunosuppressants
CPT/HCPCS: 36415; 71045; 71046; 74176; 80048; 80053; 80202; 81003; 81015; 82247; 82570; 82962; 83010; 83605; 83615; 83735; 84156; 84300; 84484; 85014; 85018; 85025; 85045; 85379; 85384; 85610; 86850; 86900; 86901; 86920; 86922; 87040; 87086; 87502; 87641; 87811; 92610; 93005; 93306; 96361; 96365; 96375; 97116; 97162; 97166; 97530; 97535; 99282; 99285; P9040; P9058

== ENCOUNTER → 2023-07-05 09:56 | Outpatient (REF) | payer OTHER, MEDICARE, SELFPAY ==
[2023-07-05 10:43] LABS: INR 1.65; PT 19.3 Sec (11.4-14.6)
[2023-07-05 10:44] LABS: % Basophils 0.2 % (0-2); % Eosinophils 1.9 % (0-6); % Immature Granulocytes 1.1 % (0-0.5); % Lymphocytes 26.1 % (20.5-51.1); % Monocytes 5.8 % (1.7-9.3); % Neutrophils 64.9 % (42.2-75.2); Absolute Eosinophils 0.1 10^3/uL (0-0.7); Absolute Immature Granulocytes 0.1 10^3/uL (0-0.05); Absolute Lymphocytes 1.2 10^3/uL (1.2-3.4); Absolute Monocytes 0.3 10^3/uL (0.1-0.6); Hematocrit 22.9 % (39.0-52.0); Hemoglobin 7.9 g/dL (13.0-18.0); Mean Corp Hgb Conc. 34.5 g/dL (33.0-37.0); Mean Corpuscular Hgb 29.9 pg (27.0-31.0); Mean Corpuscular Volume 86.7 fL (80.0-94.0); Nucleated Red Blood Cells % 0 % (-); Red Blood Cell Count 2.64 10^6/uL (4.70-6.10); Red Cell Dist. Width 17.5 % (11.5-14.5); White Blood Cell Count 4.6 10^3/uL (4.8-10.8)
[2023-07-05 10:54] LABS: Blood Urea Nitrogen 55 mg/dl (9-20); Carbon Dioxide 20 mmol/L (22-30); Chloride 108 mmol/L (98-107); Glucose 87 mg/dl (70-99); Potassium 4.2 mmol/L (3.5-5.1); Sodium 138 mmol/L (135-145); eGFR 22.82
== END ==
LOC: OLABP 09:56
PROVIDERS: ATTENDING PHYSICIAN Family Medicine
DX: N18.9 Chronic kidney disease, unspecified (principal); M10.9 Gout, unspecified; E87.1 Hypo-osmolality and hyponatremia; K51.20 Ulcerative (chronic) proctitis without complications; D62 Acute posthemorrhagic anemia; K59.00 Constipation, unspecified; D72.829 Elevated white blood cell count, unspecified; L89.153 Pressure ulcer of sacral region, stage 3; E78.5 Hyperlipidemia, unspecified; E11.9 Type 2 diabetes mellitus without complications; J44.9 Chronic obstructive pulmonary disease, unspecified; I48.0 Paroxysmal atrial fibrillation; D75.81 Myelofibrosis; I25.10 Atherosclerotic heart disease of native coronary artery without angina pectoris; N40.0 Benign prostatic hyperplasia without lower urinary tract symptoms; C91.10 Chronic lymphocytic leukemia of B-cell type not having achieved remission; D45 Polycythemia vera; E87.20 Acidosis, unspecified; I13.10 Hypertensive heart and chronic kidney disease without heart failure, with stage 1 through stage 4 chronic kidney disease, or unspecified chronic kidney disease; J18.9 Pneumonia, unspecified organism
CPT/HCPCS: 36415; 80048; 85025; 85610

== ENCOUNTER → 2023-07-08 10:13 | Outpatient (REF) | payer OTHER, MEDICARE, SELFPAY ==
[2023-07-08 11:06] LABS: INR 2.38; PT 25.8 Sec (11.4-14.6)
== END ==
LOC: OLABP 10:13
PROVIDERS: ATTENDING PHYSICIAN Family Medicine
DX: N18.9 Chronic kidney disease, unspecified (principal); M10.9 Gout, unspecified; E87.1 Hypo-osmolality and hyponatremia; K51.20 Ulcerative (chronic) proctitis without complications; D62 Acute posthemorrhagic anemia; K59.00 Constipation, unspecified; D72.829 Elevated white blood cell count, unspecified; L89.153 Pressure ulcer of sacral region, stage 3; E78.5 Hyperlipidemia, unspecified; E11.9 Type 2 diabetes mellitus without complications; J44.9 Chronic obstructive pulmonary disease, unspecified; I48.0 Paroxysmal atrial fibrillation; I13.10 Hypertensive heart and chronic kidney disease without heart failure, with stage 1 through stage 4 chronic kidney disease, or unspecified chronic kidney disease; J18.9 Pneumonia, unspecified organism; D75.81 Myelofibrosis; I25.10 Atherosclerotic heart disease of native coronary artery without angina pectoris; N40.0 Benign prostatic hyperplasia without lower urinary tract symptoms; C91.10 Chronic lymphocytic leukemia of B-cell type not having achieved remission; E87.20 Acidosis, unspecified
CPT/HCPCS: 36415; 85610

== ENCOUNTER → 2023-07-09 10:47 | Outpatient (REF) | payer OTHER, MEDICARE, SELFPAY ==
[2023-07-09 11:39] LABS: % Basophils 0.5 % (0-2); % Eosinophils 1.4 % (0-6); % Immature Granulocytes 2.4 % (0-0.5); % Neutrophils 59.7 % (42.2-75.2); Absolute Eosinophils 0.1 10^3/uL (0-0.7); Absolute Immature Granulocytes 0.1 10^3/uL (0-0.05); Absolute Lymphocytes 1.6 10^3/uL (1.2-3.4); Absolute Monocytes 0.5 10^3/uL (0.1-0.6); Absolute Neutrophils 3.5 10^3/uL (1.4-6.5); Hematocrit 23.4 % (39.0-52.0); Hemoglobin 8.2 g/dL (13.0-18.0); Mean Corpuscular Hgb 31.1 pg (27.0-31.0); Mean Corpuscular Volume 88.6 fL (80.0-94.0); Mean Platelet Volume 11.5 fL (7.4-10.4); Nucleated Red Blood Cells % 0 % (-); Platelet Count 150 10^3/uL (130-400); Red Blood Cell Count 2.64 10^6/uL (4.70-6.10); Red Cell Dist. Width 17.8 % (11.5-14.5); White Blood Cell Count 5.9 10^3/uL (4.8-10.8)
[2023-07-09 11:59] LABS: Blood Urea Nitrogen 42 mg/dl (9-20); Carbon Dioxide 25 mmol/L (22-30); Chloride 108 mmol/L (98-107); Glucose 83 mg/dl (70-99); Potassium 4.9 mmol/L (3.5-5.1); Sodium 136 mmol/L (135-145); eGFR 25.02
== END ==
LOC: OLABP 10:47
PROVIDERS: ATTENDING PHYSICIAN Family Medicine
DX: I13.10 Hypertensive heart and chronic kidney disease without heart failure, with stage 1 through stage 4 chronic kidney disease, or unspecified chronic kidney disease (principal); E11.9 Type 2 diabetes mellitus without complications; I48.0 Paroxysmal atrial fibrillation; D75.81 Myelofibrosis; C91.10 Chronic lymphocytic leukemia of B-cell type not having achieved remission; N40.0 Benign prostatic hyperplasia without lower urinary tract symptoms; K51.20 Ulcerative (chronic) proctitis without complications
CPT/HCPCS: 36415; 80048; 85025

== ENCOUNTER → 2023-07-11 09:34 | Outpatient (REF) | payer MEDICARE, SELFPAY ==
[2023-07-11 09:50] LABS: % Basophils 0.4 % (0-2); % Eosinophils 0.8 % (0-6); % Immature Granulocytes 2.4 % (0-0.5); % Lymphocytes 16.3 % (20.5-51.1); % Monocytes 6.8 % (1.7-9.3); % Neutrophils 73.3 % (42.2-75.2); Absolute Eosinophils 0.1 10^3/uL (0-0.7); Absolute Immature Granulocytes 0.2 10^3/uL (0-0.05); Absolute Lymphocytes 1.4 10^3/uL (1.2-3.4); Absolute Monocytes 0.6 10^3/uL (0.1-0.6); Absolute Neutrophils 6.2 10^3/uL (1.4-6.5); Hematocrit 30.8 % (39.0-52.0); Mean Corp Hgb Conc. 32.1 g/dL (33.0-37.0); Mean Corpuscular Hgb 28.4 pg (27.0-31.0); Mean Corpuscular Volume 88.5 fL (80.0-94.0); Mean Platelet Volume 9.8 fL (7.4-10.4); Platelet Count 299 10^3/uL (130-400); Red Blood Cell Count 3.48 10^6/uL (4.70-6.10); Red Cell Dist. Width 17.7 % (11.5-14.5); White Blood Cell Count 8.5 10^3/uL (4.8-10.8)
[2023-07-11 09:51] LABS: Hemoglobin 9.9 g/dL (13.0-18.0)
[2023-07-11 10:22] LABS: ALT (SGPT) 19 U/L (0-50); AST (SGOT) 21 U/L (17-59); Albumin 3.4 g/dl (3.5-5.0); Alkaline Phosphatase 76 U/L (38-126); Blood Urea Nitrogen 34 mg/dl (9-20); Calcium 8.2 mg/dl (8.4-10.2); Carbon Dioxide 26 mmol/L (22-30); Chloride 106 mmol/L (98-107); Glucose 145 mg/dl (70-99); Potassium 4.6 mmol/L (3.5-5.1); Sodium 138 mmol/L (135-145); Total Bilirubin 0.6 mg/dl (0.2-1.3); eGFR 25.02
== END ==
LOC: OIDL 09:34
PROVIDERS: ATTENDING PHYSICIAN Internal Medicine Hematology & Oncology
DX: C91.10 Chronic lymphocytic leukemia of B-cell type not having achieved remission (principal); D45 Polycythemia vera
CPT/HCPCS: 36415; 80053; 85025

== ENCOUNTER → 2023-07-18 10:36 | Outpatient (REF) | payer MEDICARE, SELFPAY ==
[2023-07-18 11:24] LABS: % Basophils 0.2 % (0-2); % Eosinophils 0.8 % (0-6); % Immature Granulocytes 1.5 % (0-0.5); % Lymphocytes 17.1 % (20.5-51.1); % Monocytes 6.3 % (1.7-9.3); % Neutrophils 74.1 % (42.2-75.2); Absolute Eosinophils 0.1 10^3/uL (0-0.7); Absolute Immature Granulocytes 0.2 10^3/uL (0-0.05); Absolute Lymphocytes 2.2 10^3/uL (1.2-3.4); Absolute Monocytes 0.8 10^3/uL (0.1-0.6); Absolute Neutrophils 9.7 10^3/uL (1.4-6.5); Hematocrit 27.3 % (39.0-52.0); Hemoglobin 8.6 g/dL (13.0-18.0); Mean Corp Hgb Conc. 31.5 g/dL (33.0-37.0); Mean Corpuscular Hgb 28.2 pg (27.0-31.0); Mean Corpuscular Volume 89.5 fL (80.0-94.0); Mean Platelet Volume 9.9 fL (7.4-10.4); Platelet Count 250 10^3/uL (130-400); Red Blood Cell Count 3.05 10^6/uL (4.70-6.10); Red Cell Dist. Width 18.3 % (11.5-14.5); White Blood Cell Count 13.1 10^3/uL (4.8-10.8)
[2023-07-18 12:24] LABS: INR 1.91; PT 22.1 Sec (11.4-14.6)
[2023-07-18 12:32] LABS: ALT (SGPT) 14 U/L (0-50); AST (SGOT) 17 U/L (17-59); Albumin 3.5 g/dl (3.5-5.0); Alkaline Phosphatase 73 U/L (38-126); Blood Urea Nitrogen 50 mg/dl (9-20); Calcium 8.7 mg/dl (8.4-10.2); Carbon Dioxide 26 mmol/L (22-30); Chloride 107 mmol/L (98-107); Glucose 129 mg/dl (70-99); Potassium 4.5 mmol/L (3.5-5.1); Sodium 140 mmol/L (135-145); Total Bilirubin 0.7 mg/dl (0.2-1.3); eGFR 18.61
[2023-07-18 12:34] LABS: Albumin 3.4 g/dl (3.5-5.0); Blood Urea Nitrogen 49 mg/dl (9-20); Calcium 8.7 mg/dl (8.4-10.2); Carbon Dioxide 25 mmol/L (22-30); Chloride 107 mmol/L (98-107); Glucose 130 mg/dl (70-99); Phosphorus 3.9 mg/dl (2.5-4.5); Potassium 4.3 mmol/L (3.5-5.1); Sodium 140 mmol/L (135-145); eGFR 19.33
[2023-07-18 12:52] LABS: Protein/creatinine Ratio 0.6; Urine Protein 85 mg/dl
[2023-07-20 10:55] LABS: Intact PTH 58.7 pg/ml (13.6-85.8)
== END ==
LOC: OIDL 10:36
PROVIDERS: Internal Medicine Cardiovascular Disease; Specialist; ATTENDING PHYSICIAN Internal Medicine Hematology & Oncology
DX: C91.10 Chronic lymphocytic leukemia of B-cell type not having achieved remission (principal); E78.2 Mixed hyperlipidemia; I48.0 Paroxysmal atrial fibrillation
CPT/HCPCS: 36415; 80053; 80069; 82570; 83970; 84156; 85025; 85610

== ENCOUNTER → 2023-08-01 12:51 | Outpatient (REF) | payer MEDICARE, SELFPAY ==
[2023-08-01 13:21] LABS: % Basophils 1.1 % (0-2); % Eosinophils 1.5 % (0-6); % Lymphocytes 16.7 % (20.5-51.1); % Monocytes 6.9 % (1.7-9.3); % Neutrophils 72.8 % (42.2-75.2); Absolute Basophils 0.1 10^3/uL (0-0.2); Absolute Eosinophils 0.2 10^3/uL (0-0.7); Absolute Immature Granulocytes 0.1 10^3/uL (0-0.05); Absolute Lymphocytes 1.9 10^3/uL (1.2-3.4); Absolute Monocytes 0.8 10^3/uL (0.1-0.6); Absolute Neutrophils 8.1 10^3/uL (1.4-6.5); Hematocrit 25.6 % (39.0-52.0); Hemoglobin 8.3 g/dL (13.0-18.0); Mean Corp Hgb Conc. 32.4 g/dL (33.0-37.0); Mean Corpuscular Hgb 28.9 pg (27.0-31.0); Mean Corpuscular Volume 89.2 fL (80.0-94.0); Mean Platelet Volume 9.7 fL (7.4-10.4); Nucleated Red Blood Cells % 0.2 % (-); Platelet Count 205 10^3/uL (130-400); Red Blood Cell Count 2.87 10^6/uL (4.70-6.10); Red Cell Dist. Width 19.9 % (11.5-14.5); White Blood Cell Count 11.2 10^3/uL (4.8-10.8)
[2023-08-01 13:32] LABS: INR 2.37; PT 26.2 Sec (11.4-14.6)
[2023-08-01 13:50] LABS: ALT (SGPT) 21 U/L (0-50); AST (SGOT) 24 U/L (17-59); Albumin 3.5 g/dl (3.5-5.0); Alkaline Phosphatase 74 U/L (38-126); Blood Urea Nitrogen 36 mg/dl (9-20); Calcium 8.4 mg/dl (8.4-10.2); Carbon Dioxide 25 mmol/L (22-30); Chloride 107 mmol/L (98-107); Glucose 89 mg/dl (70-99); Iron 60 ug/dl (49-181); Potassium 4.3 mmol/L (3.5-5.1); Sodium 137 mmol/L (135-145); Total Bilirubin 0.6 mg/dl (0.2-1.3); Total Protein 6.2 g/dl (6.3-8.2); eGFR 25.02
[2023-08-01 13:58] LABS: Percent Saturation 31 % (20-50); Total Iron Binding Capacity 189 ug/dl (261-462)
== END ==
LOC: OIDL 12:51
PROVIDERS: Internal Medicine Cardiovascular Disease; ATTENDING PHYSICIAN Internal Medicine Hematology & Oncology; FAMILY PHYSICIAN Family Medicine
DX: C91.10 Chronic lymphocytic leukemia of B-cell type not having achieved remission (principal); I48.91 Unspecified atrial fibrillation; I48.0 Paroxysmal atrial fibrillation
CPT/HCPCS: 80053; 82565; 82728; 83540; 83550; 85025; 85610

== ENCOUNTER → 2023-08-22 12:49 | Outpatient (REF) | payer MEDICARE, SELFPAY ==
--- NOTE | 2023-06-23 11:54 | PHA.VAN.IN ---
Assessment
- Assessment
Renal Function: Appears elevated from baseline (2.0-2.07 May 2023)
Maximum Temperature: 101 06/23/23 at 00:59, currently febrile at 100.6
Minimum Temperature: 98.3 06/22/22 at 20:30
Concomitant Antimicrobials: Piperacillin-tazobactam
Plan
- Plan
Initial / Loading Dose: Vancomycin 1500mg IV x 1 dose
Maintenance Regimen: Dose by levels
Monitoring: Random Vancomycin level ordered 06/24/23 at 06:00
Pharmacokinetics Vancomycin I
- -
Patient Age: 83
Patient Sex: Male
Vancomycin Day #: 1
Indication: Bacteremia
Requesting Provider: Dr. Braeden Miles
Pertinent Antimicrobial Allergies:
no antibiotic allergies
IBW in k.3
Pertinent Past Medical History: CKDIII, CLL/MGUS, DM2
[2023-08-22 13:15] LABS: % Basophils 0.4 % (0-2); % Eosinophils 1.8 % (0-6); % Monocytes 6.4 % (1.7-9.3); % Neutrophils 74.4 % (42.2-75.2); Absolute Eosinophils 0.2 10^3/uL (0-0.7); Absolute Immature Granulocytes 0.1 10^3/uL (0-0.05); Absolute Lymphocytes 1.8 10^3/uL (1.2-3.4); Absolute Monocytes 0.7 10^3/uL (0.1-0.6); Absolute Neutrophils 8.4 10^3/uL (1.4-6.5); Hematocrit 23.5 % (39.0-52.0); Hemoglobin 7.4 g/dL (13.0-18.0); Mean Corp Hgb Conc. 31.5 g/dL (33.0-37.0); Mean Corpuscular Hgb 28.7 pg (27.0-31.0); Mean Corpuscular Volume 91.1 fL (80.0-94.0); Mean Platelet Volume 9.9 fL (7.4-10.4); Platelet Count 264 10^3/uL (130-400); Red Blood Cell Count 2.58 10^6/uL (4.70-6.10); Red Cell Dist. Width 20.4 % (11.5-14.5); White Blood Cell Count 11.2 10^3/uL (4.8-10.8)
[2023-08-22 14:26] LABS: Nucleated Red Blood Cells % 0.2 % (-)
[2023-08-22 14:50] LABS: ALT (SGPT) 19 U/L (0-50); AST (SGOT) 24 U/L (17-59); Albumin 3.4 g/dl (3.5-5.0); Alkaline Phosphatase 69 U/L (38-126); Blood Urea Nitrogen 37 mg/dl (9-20); Calcium 8.1 mg/dl (8.4-10.2); Carbon Dioxide 21 mmol/L (22-30); Chloride 109 mmol/L (98-107); Glucose 97 mg/dl (70-99); HDL Cholesterol 32 mg/dl; LDL Cholesterol, Calculated 40 mg/dl; Potassium 4.3 mmol/L (3.5-5.1); Sodium 137 mmol/L (135-145); Total Bilirubin 0.7 mg/dl (0.2-1.3); Total Cholesterol 112 mg/dl (50-199); Total Protein 6.1 g/dl (6.3-8.2); Triglyceride 202 mg/dl (10-149); Very Low Density Lipoprotein 40 mg/dl (0-30); eGFR 26.28
[2023-08-22 15:19] LABS: TSH 2.26 uIU/ml (0.47-4.68)
[2023-08-23 09:10] LABS: Glycohemoglobin (HgbA1c) 5.5 % (4.0-5.6)
== END ==
LOC: OIDL 12:49
PROVIDERS: Family Medicine; ATTENDING PHYSICIAN Internal Medicine Hematology & Oncology; OTHER PHYSICIAN Family Medicine; OTHER PHYSICIAN Internal Medicine Cardiovascular Disease
DX: C91.10 Chronic lymphocytic leukemia of B-cell type not having achieved remission (principal); I48.0 Paroxysmal atrial fibrillation; E11.9 Type 2 diabetes mellitus without complications
CPT/HCPCS: 36415; 80053; 80061; 83036; 84443; 85025; 85610

== ENCOUNTER 2023-08-29 11:02 | Outpatient (RCR) | payer MEDICARE, SELFPAY ==
[2023-08-23 11:25] VITALS: BP 129/47
[2023-08-23 11:56] VITALS: BP 129/47
[2023-08-23 12:15] VITALS: BP 143/53
[2023-08-23 14:01] VITALS: BP 163/61
[2023-08-29 11:41] LABS: % Basophils 0.4 % (0-2); % Eosinophils 1.6 % (0-6); % Immature Granulocytes 1.7 % (0-0.5); % Monocytes 5.9 % (1.7-9.3); % Neutrophils 77.4 % (42.2-75.2); Absolute Basophils 0.1 10^3/uL (0-0.2); Absolute Eosinophils 0.2 10^3/uL (0-0.7); Absolute Immature Granulocytes 0.2 10^3/uL (0-0.05); Absolute Lymphocytes 1.7 10^3/uL (1.2-3.4); Absolute Monocytes 0.8 10^3/uL (0.1-0.6); Absolute Neutrophils 9.8 10^3/uL (1.4-6.5); Hematocrit 26.1 % (39.0-52.0); Mean Corp Hgb Conc. 30.7 g/dL (33.0-37.0); Mean Corpuscular Hgb 28.2 pg (27.0-31.0); Mean Corpuscular Volume 91.9 fL (80.0-94.0); Mean Platelet Volume 9.6 fL (7.4-10.4); Platelet Count 259 10^3/uL (130-400); Red Blood Cell Count 2.84 10^6/uL (4.70-6.10); Red Cell Dist. Width 20.5 % (11.5-14.5); White Blood Cell Count 12.7 10^3/uL (4.8-10.8)
[2023-08-29 12:21] LABS: ALT (SGPT) 26 U/L (0-50); AST (SGOT) 25 U/L (17-59); Albumin 3.2 g/dl (3.5-5.0); Alkaline Phosphatase 72 U/L (38-126); Blood Urea Nitrogen 43 mg/dl (9-20); Carbon Dioxide 22 mmol/L (22-30); Chloride 114 mmol/L (98-107); Glucose 167 mg/dl (70-99); Potassium 4.5 mmol/L (3.5-5.1); Sodium 141 mmol/L (135-145); Total Bilirubin 0.7 mg/dl (0.2-1.3); Total Protein 5.8 g/dl (6.3-8.2); eGFR 27.66
[2023-08-29 12:38] LABS: INR 5.49
[2023-08-29 21:03] LABS: Hepatitis B Core Ab, Total Negative (Negative); Hepatitis B Surface Antibody Negative
[2023-08-29 23:25] LABS: Hepatitis B Surface Antigen Reactive (Negative)
[2023-08-31 17:53] LABS: HBsAg Confirmation Non Confirmed (Non Confirmed)
== END 2023-09-01 23:59 | disposition home or self-care (01) ==
LOC: OID 11:02
PROVIDERS: Internal Medicine Cardiovascular Disease; ATTENDING PHYSICIAN Internal Medicine Hematology & Oncology; FAMILY PHYSICIAN Family Medicine
DX: C91.10 Chronic lymphocytic leukemia of B-cell type not having achieved remission (principal); D45 Polycythemia vera
CPT/HCPCS: 36415; 36430; 80053; 85025; 85610; 86704; 86706; 86850; 86900; 86901; 86920; 87340; 87341; P9040

== ENCOUNTER 2023-09-01 08:57 | Inpatient (IN) | payer MEDICARE, SELFPAY ==
[2023-09-01] VITALS (21 sets, daily range): BP systolic 108–156; BP diastolic 49–92; BMI 23.1; BMI 22.2
[2023-09-01 04:26] LABS: % Basophils 0.7 % (0-2); % Eosinophils 0.9 % (0-6); % Immature Granulocytes 3.3 % (0-0.5); % Lymphocytes 7.7 % (20.5-51.1); % Monocytes 5.2 % (1.7-9.3); % Neutrophils 82.2 % (42.2-75.2); Absolute Basophils 0.1 10^3/uL (0-0.2); Absolute Eosinophils 0.2 10^3/uL (0-0.7); Absolute Immature Granulocytes 0.6 10^3/uL (0-0.05); Absolute Lymphocytes 1.3 10^3/uL (1.2-3.4); Absolute Monocytes 0.9 10^3/uL (0.1-0.6); Absolute Neutrophils 13.5 10^3/uL (1.4-6.5); Hematocrit 21.6 % (39.0-52.0); Mean Corpuscular Hgb 28.2 pg (27.0-31.0); Mean Corpuscular Volume 90.8 fL (80.0-94.0); Mean Platelet Volume 10.4 fL (7.4-10.4); Nucleated Red Blood Cells % 1.8 % (-); Platelet Count 301 10^3/uL (130-400); Red Blood Cell Count 2.38 10^6/uL (4.70-6.10); Red Cell Dist. Width 21.2 % (11.5-14.5); White Blood Cell Count 16.4 10^3/uL (4.8-10.8)
[2023-09-01 04:34] LABS: Hemoglobin 6.7 g/dL (13.0-18.0)
[2023-09-01 04:54] LABS: INR 3.98; PT 38.9 Sec (11.4-14.6)
[2023-09-01 04:56] LABS: ALT (SGPT) 19 U/L (0-50); AST (SGOT) 18 U/L (17-59); Alkaline Phosphatase 68 U/L (38-126); Blood Urea Nitrogen 47 mg/dl (9-20); Calcium 8.6 mg/dl (8.4-10.2); Carbon Dioxide 19 mmol/L (22-30); Chloride 112 mmol/L (98-107); Estimated Creatinine Clearance 21 ml/min; Glucose 195 mg/dl (70-99); Potassium 4.8 mmol/L (3.5-5.1); Sodium 141 mmol/L (135-145); Total Bilirubin 0.9 mg/dl (0.2-1.3); Total Protein 5.3 g/dl (6.3-8.2); eGFR 21.84
[2023-09-01 04:57] LABS: Troponin I 0.194 ng/ml
--- NOTE | 2023-09-01 06:54 | EDRN ---
Pt voided soft dark brown stool in BSC. Perineal care provided. Pt's gown and linens changed.
[2023-09-01 07:01] LABS: NT-proBNP 6950 pg/ml
--- NOTE | 2023-09-01 07:33 | ED.GENMED ---
History of Present Illness
General
Chief Complaint: Breathing Problem
Source: patient and records
Exam Limitations: none
Time Seen by Provider: 09/01/23 05:52
Nursing documentation reviewed up to this point in time: agreed with
Travel History
Have you had any contact with someone who has COVID-19?: No
Do you have any symptoms of coronavirus? Fever > 100 degrees, chills, cough, shortness of breath, sore throat, loss of taste or smell, muscle aches, or headache?: No
History of Present Illness
History of Present Illness:
83-year-old male with a past medical history of COPD, atrial fibrillation on Coumadin, hypertension, hyperlipidemia, CAD, diabetes, chronic kidney disease who presents to the emergency department for evaluation of increasing exertional dyspnea also
had an episode of chest pain last night. Patient reports that for the past few weeks he has been having worsening dyspnea with exertion. Yesterday evening it seemed much worse than usual. He says that he also had an episode of significant chest
pain that lasted for about an hour yesterday. He says his chest pain resolved with sublingual nitroglycerin. He says he is currently chest pain-free but does feel some increased shortness of breath. He does associate orthopnea. No coughing. Has
not noticed any increased edema in his legs. He denies any recent illness�no fever, chills, nausea, vomiting, diarrhea, URI symptoms. He reports compliance with all medications. He follows with Dr. Onur Snow for cardiology and sees Dr. Najera
for nephrology.
Past History
Past History
ED Past Medical History: Arrthythmia (Atrial fibrillation), CAD, Cancer (CLL ( Lymphocytic Leukemia)), COPD, HTN, Hypercholesterolemia, NIDDM, MS, Renal failure and Other (Anemia, PNA, Hernia, Bleeding gums, PNA)
ED Past Surgical History: Cardiac (Stents X2)
Social History
Tobacco: Former smoker
Alcohol: None
Drug: None
Personal:
Living: with family
Employment: Not employed
Family History
Family History: CAD
Review of Systems
Review of Systems
All Other Systems: ROS reviewed and negative except as documented in HPI and ROS
Constitutional: Reports fatigue; Denies fever or chills
EENT: Denies sore throat or runny nose
Respiratory: Reports trouble breathing; Denies cough
Cardiac: Reports chest pain; Denies palpitations
ABD/GI: Denies abdominal pain, nausea, vomiting or bloody stools
: Denies flank pain
Musculoskeletal: Denies neck pain or back pain
Neurological: Denies headache, weakness or numbness
Phy Exam
Physical Exam
Physical Exam:
General: Awake, alert, oriented x3; no acute distress
Head: Normocephalic, atraumatic
Eyes: Conjunctiva normal, EOMI
Throat: Airway intact, handling secretions
Neck: Trachea midline, slight JVD
Lungs: Patient is hypoxic requiring 4 L nasal cannula; he has bibasilar rales; he has mild tachypnea but is not in any respiratory distress
Heart: Regular rate and rhythm, systolic murmur
Abd: Soft, non distended, nontender
Rectal: Brown stool heme-negative
Neuro: Cranial nerves grossly intact, speech fluid
Extremities: Trace edema in the legs bilaterally; good pulses in all extremities
Scores
Heart Failure Risk
Heart Failure Risk Score: Yes
History of Stroke or TIA: No
History of intubation for respiratory distress: No
Heart rate on ED arrival >/= 110: No
SaO2 <90% on arrival on room air: Yes
HR >/=110 during 3min walk test (or too ill to perform test): Yes
ECG has acute ischemic changes: No
Urea >/=12mmol/L (BUN 33.6mg/dL): Yes
Serum CO2>/=35mmol/L: No
Troponin I or T elevated to MS Level (0.4mg/dL): No
NT-proBNP >/=5,000ng/L (5,000pg/ml): Yes
HF Risk Score: 5
Admission Status: VERY HIGH RISK 39.8% Consider admission to hospital
Heart Score for Chest Pain Patients
STEMI patient?: Not applicable
Withdrawal Assessment of Alcohol
Withdrawal Assessment Completed?: Not applicable
Course
Orders/Labs/Results
Orders:
Orders
09/01/23 04:06
Electrocardiogram (*1) Urgent
Reason for Study: Chest Pain
Cardiac Monitoring- Treatment ONCE
EKG- Treatment ONCE
IV Insert/Care/Rem.- Treatment PRN
O2 Therapy [RESP] Urgent
Titrate/Wean O2 to maintain O2 sat greater than (%): 90
Special Instructions: Maintain sats >/=90%
Pulse Ox/spot Check [RESP] Urgent
Quantity: 1
Special Instructions: ON ROOM AIR
09/01/23 04:13
Complete Blood Count/With Diff Urgent
Comprehensive Metabolic Panel Urgent
NT-proBNP Urgent
Comment: ADD ON
Troponin I Urgent
09/01/23 04:32
PT/INR [Prothrombin Time] Urgent
09/01/23 05:14
Type+Screen Urgent
09/01/23 06:18
Chest X-ray Portable [CR Chest Portable - 1 View] Urgent
Comment:
Reason For Exam: respiratory distress
Reason Study Needs to be Portable: Patient Unstable
09/01/23 06:19
Add On- LAB Urgent
Tests Added?: pro BNP
09/01/23 06:33
* Blood Bank Products Urgent
Blood Bank Products: *Packed RBC Leuko(PRBC's)
Quantity: 2
Transfuse Today: Yes
Reason: Anemia
09/01/23 07:11
Troponin I Urgent
09/01/23 07:28
CARDIOLOGY CONSULT Urgent
Consulting Provider: Pérez Farrell
Was physician already notified: Yes
NEPHROLOGY CONSULT Urgent
Consulting Provider: Diogo Tian
Was physician already notified: Yes
09/01/23 07:32
Procalcitonin Urgent
PCT Algorithmm Indication: Respiratory
Furosemide [Lasix] 40 mg IV NOW STA
Abnormal Lab Results
09/01/23 09/01/23 09/01/23
04:13 04:32 05:14
WBC 16.4 H 10^3/uL
(4.8-10.8)
RBC 2.38 L 10^6/uL
(4.70-6.10)
Hgb 6.7 L* g/dL
(13.0-18.0)
Hct 21.6 L %
(39.0-52.0)
MCHC 31.0 L g/dL
(33.0-37.0)
RDW 21.2 H %
(11.5-14.5)
Abs Immat Gran (auto) 0.6 H 10^3/uL
(0-0.05)
Absolute Neuts (auto) 13.5 H 10^3/uL
(1.4-6.5)
Absolute Monos (auto) 0.9 H 10^3/uL
(0.1-0.6)
Immature Gran % 3.3 H %
(0-0.5)
Neutrophils % 82.2 H %
(42.2-75.2)
Lymphocytes % 7.7 L %
(20.5-51.1)
PT 38.9 H Sec
(11.4-14.6)
Chloride 112 H mmol/L
(98-107)
Carbon Dioxide 19 L mmol/L
(22-30)
BUN 47 H mg/dl
(9-20)
Creatinine 2.8 H mg/dL
(0.7-1.3)
Glucose 195 H mg/dl
(70-99)
Troponin I 0.194 H* ng/ml
Total Protein 5.3 L g/dl
(6.3-8.2)
Albumin 3.0 L g/dl
(3.5-5.0)
Crossmatch IS Only See Detail
MTS Gel Crossmatch See Detail
09/01/23 04:13
09/01/23 04:13
Vital Signs
Initial and Last Documented VS:
Initial Vital Signs
Temp Pulse Resp Pulse Ox
36.7 C 93 28 76
09/01/23 04:06 09/01/23 04:06 09/01/23 04:06 09/01/23 04:06
Last Documented Vital Signs
Temp Pulse Resp BP Pulse Ox
36.7 C 71 24 108/92 94
09/01/23 04:06 09/01/23 07:00 09/01/23 07:00 09/01/23 07:00 09/01/23 07:00
MDM/Problems Addressed
Differential Diagnosis Includes:
Acute MS, CHF, anemia, pneumonia, COPD exacerbation
MDM/Problems Addressed:
83-year-old male presents with worsening exertional dyspnea also had an episode of chest pain lasted about an hour and resolved with nitroglycerin last night. Chest pain-free at present. Arrives tachypneic, hypoxic; exam as above. Plan to place
an IV check labs including a CBC and a CMP, troponin, BNP. Will check chest x-ray and EKG. Monitor very closely reassess after the above.
Initial labs reviewed: CBC shows leukocytosis to 16.4�there is at least some chronic element of elevation on review of recent labs; he has acute on chronic anemia with a hemoglobin of 6.7. Patient denies GI bleeding, Hemoccult negative here. CMP
shows slightly increased creatinine of 2.8 from prior value of 2.4. His BNP is markedly elevated at 7000. Troponin slightly elevated at 0.16. INR slightly supratherapeutic at 3.98. Chest x-ray reviewed by me suspect likely mild pulmonary edema.
EKG no changes from prior. At this point suspect symptoms related to likely CHF exacerbation and acute on chronic anemia. Will plan to transfuse to keep hemoglobin greater than 8�will infuse at a low rate given concern for CHF exacerbation. Will
diurese with IV Lasix. Discussed with both nephrology and cardiology to consult on patient. Will admit to the hospitalist for continued management�discussed with hospitalist for admission.
Chronic conditions affecting care:
CHF, CKD, COPD, CAD all impact his care
Acute Exacerbation and/or Progression of Chronic Illness:
Acute on chronic anemia managed with blood transfusion
*Radiology
Radiology exam reviewed: preliminary read by ED provider
*Pulse Oximetry
Patient hypoxic: yes
*EKG
Interpreted by ED Provider?: Yes
Heart Rate: 84
Rate: normal
Rhythm: sinus
[place]: normal axis
Interval: normal interval
QRS Pattern: right bundle branch block
Ischemia: non-specific ST changes
*Critical Care Note
Total Time (30-74mins, 75-104mins- exclusive of procedures): 33
comment:
Critical care statement: A total of 33 minutes of critical care time was provided for this patient. This includes management of unstable vital signs, evaluation of the patient at bedside, frequent reassessment, discussion with
consultants/hospitalist, and review of pertinent medical records. This time was separate from time utilized to perform any aforementioned documented procedures
Data Reviewed
Source: patient and records
Patient Management
Discussion with other providers: Hospitalist (Discussed with hospitalist) and Advanced Registered Nurse (Discussed with nephrology, discussed with cardiology)
Escalation/DeEscalation of care consider admission/obs:
Admission indicated
ED Attending Note
-
Portions of this chart may have been created with voice recognition software.� Occasional wrong word or��sound alike� substitutions may have occurred due to the inherent limitations of voice recognition software.
Discharge Plan
Departure
Patient Disposition: Admit
Date of Disposition: 09/01/23
Time of Disposition: 07:42
Admit to doctor: Vince
Presentation/result/management discussed w/ accepting MD/DO: Hospitalist
Discharge Problem:
Acute CHF (congestive heart failure), Acute hypoxic respiratory failure, Acute on chronic anemia
Prescriptions:
No Action
ipratropium-albuterol 3 ML solution for nebulization
3 ml inhalation R BID PRN (Reason: Lung/Breathing Issues)
mupirocin 1 APPLIC ointment
1 applic topical DAILYPRN PRN (Reason: scalp and cheek )
Patient Comments:
Apply to top of scalp
acetaminophen [Tylenol Extra Strength] 500 MG tablet
1,000 mg PO Q6HPRN PRN (Reason: mild pain)
rosuvastatin 5 MG tablet
5 mg PO HS
nitroglycerin [Nitro-Dur] 0.6 mg/hr Patch 24 Hour
1 patch TRANSDERMAL DAILY Qty: 0
ferrous sulfate 325 mg (65 mg iron) Tablet
325 mg PO Q48H Qty: 0
gabapentin 100 mg Capsule
100 mg PO BID
finasteride 5 mg Tablet
5 mg PO QPM
febuxostat 40 mg Tablet
40 mg PO DAILY
Hold Instructions: Until renal function improve
budesonide [Pulmicort] 0.5 mg/2 mL Suspension For Nebulization
0.5 mg INHALATION DAILY PRN (Reason: Lung/Breathing Issues)
amiodarone 200 mg tablet
200 mg PO DAILY Qty: 30 0RF
Patient Comments:
06/20/2023: Pt states he hasnt started this yet.
nitroglycerin 0.3 mg tablet, sublingual
0.3 mg sublingual [id number] PRN (Reason: chest pain)
aspirin 81 mg Tablet,Delayed Release (Dr/Ec)
81 mg PO DAILY
metoprolol succinate 25 mg tablet extended release 24 hr
12.5 mg PO HS
Hold Instructions: until Bp>140/90
colchicine 0.6 mg Tablet
0.6 mg PO DAILYPRN PRN (Reason: gout)
dapagliflozin propanediol [Farxiga] 5 mg tablet
5 mg PO DAILY
lidocaine 4 % Adhesive Patch,Medicated
1 patch topical DAILY Qty: 0 0RF
warfarin 1 mg Tablet
0.5 mg PO QPM
Patient Comments:
with warfarin 3mg tab = 3.5mg daily
guaifenesin 600 mg Tablet Extended Release 12hr
600 mg PO BID
Ojjaara 200 mg Tablet
200 mg PO QPM
warfarin 3 mg tablet
3 mg PO QPM
Patient Comments:
take with 0.5mg warfarin = 3.5 mg daily
Referrals:
Rob Santos MD [Family Provider] -
Interventions
Interventions:
*Risk Screen - Suicide Last Done: 09/01/23 04:06
*General Assessment Last Done: 09/01/23 04:06
*Neglect/Abuse Screening Last Done: 09/01/23 04:06
ED- Fall Risk Assessment Last Done: 09/01/23 04:18
*ED COVID-19 Vaccine History Last Done: 09/01/23 04:12
ED- Cardiac Assessment Last Done: 09/01/23 04:39
ED- Pulmonary Assessment Last Done: 09/01/23 04:39
Discharge Date and Time
Print Language: POLISH
--- NOTE | 2023-09-01 07:45 | EDRN ---
Initiated PRBCs 1st unit, unable to verify unit in [facility], per blood bank to use pink sheet for this unit documentation.
[2023-09-01 07:52] LABS: Troponin I 0.301 ng/ml
--- NOTE | 2023-09-01 08:05 | EDRN ---
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
currently on 5L NC Sp02 97%, no c/o SOB currently, no c/o cough, no c/o pain, no c/o chest pain, blood products currently transfusing, awaiting for admission orders for the pt, will continue to monitor the pt closely
--- NOTE | 2023-09-01 08:37 | HPS.HSE ---
Family Physician
-
Family Physician: Rob Santos
Chief Complaint
-
Shortness of breath
History of Present Illness
83-year-old male with a past medical history of atrial fibrillation on coumadin, myelofibrosis, COPD, hypertension, hyperlipidemia, type 2 diabetes, chronic kidney disease, cognitive decline, and CKD presents with shortness of breath that occurred
since yesterday. He also had some chest pain last night, lasting for about 1 hour, and relieved with nitroglycerin. Patient states that he has been having worsening dyspnea with activity for the past few weeks, worse last night. Currently his
chest pain-free. Associated symptoms include orthopnea. No fever, no chills. No nausea, no vomiting. His hemoglobin was found to be 6.7 in the ER, he is currently receiving 1 unit of blood. He denies black or bloody stools.
Medical History
Past Medical History
Past Medical History: Reports Other
Additional Past Medical History:
Atrial fibrillation, CAD, COPD, HTN, Hypercholesterolemia, NIDDM, [place], Myelofibrosis, Gout, Cognitive decline, CKD, Anemia, PNA, Hernia, Bleeding gums
Past Surgical History: Reports Other
Additional Past Surgical History:
Cardiac Stents X2
Social History
Tobacco: Former Smoker
Alcohol: None
Drug: None
Personal:
Living: With Family
Family History
Family History: CAD
Allergies / Home Medications
Allergies reflects when Allergies were last updated in [employer].
Home Medications with original date entered in [employer]
Allergy/Medication List:
Allergies
Allergy/AdvReac Type Severity Reaction Status Date / Time
atorvastatin Allergy ? M-S pain Verified 09/01/23 04:12
immune globulin,gamma (IgG) Allergy Anaphylaxis Verified 09/01/23 04:12
human
prednisone Allergy Unknown Verified 09/01/23 04:12
Home Medications Table - record
�Medication �Instructions �Recorded �Confirmed
ipratropium 0.5 mg-albuterol 3 mg 3 ml inhalation R BIDPRN PRN 10/25/16 09/01/23
(2.5 mg base)/3 mL nebulization Lung/Breathing Issues
soln
acetaminophen 500 mg tablet 1,000 mg PO Q6HPRN PRN mild pain 07/09/19 09/01/23
(Tylenol Extra Strength)
rosuvastatin 5 mg tablet 5 mg PO HS High Cholesterol 07/09/19 09/01/23
febuxostat 40 mg tablet 40 mg PO DAILY uric acid 04/29/23 09/01/23
ferrous sulfate 325 mg (65 mg 325 mg PO Q48H@1700 Supplement ##0 04/29/23 09/01/23
iron) tablet
finasteride 5 mg tablet 5 mg PO QPM BPH 04/29/23 09/01/23
gabapentin 100 mg capsule 100 mg PO BID Pain 04/29/23 09/01/23
nitroglycerin 0.6 mg/hr 1 patch transdermal DAILY Heart 04/29/23 09/01/23
transdermal 24 hour patch Disease/Condition ##0
(Nitro-Dur)
budesonide 0.5 mg/2 mL suspension 0.5 mg inhalation R DAILYPRN PRN 06/02/23 09/01/23
for nebulization (Pulmicort) sob
amiodarone 200 mg tablet 200 mg PO DAILY #30 tabs 06/13/23 09/01/23
aspirin 81 mg tablet,delayed 81 mg PO DAILY Blood Clot 06/20/23 09/01/23
release Prevention/Tx
colchicine 0.6 mg tablet 0.6 mg PO DAILYPRN PRN gout 06/20/23 09/01/23
metoprolol succinate 25 mg 12.5 mg PO HS Heart 06/20/23 09/01/23
tablet,extended release 24 hr Disease/Condition
nitroglycerin 0.3 mg sublingual 0.3 mg sublingual [id number] PRN 06/20/23 09/01/23
tablet chest pain
dapagliflozin propanediol 5 mg 5 mg PO DAILY Diabetes 06/22/23 09/01/23
tablet (Farxiga)
amlodipine 10 mg tablet (Norvasc) 10 mg PO DAILY 09/01/23 09/01/23
guaifenesin 600 mg tablet, 600 mg PO DAILY 09/01/23 09/01/23
extended release 12 hr
momelotinib 200 mg tablet (Ojjaara) 200 mg PO QPM 09/01/23 09/01/23
warfarin 3 mg tablet 3.5 mg PO QPM Blood Clot 09/01/23 09/01/23
Prevention/Tx
Review of Systems
-
A 12 point ROS was completed and negative except as noted: Yes
Physical Exam
Vital Signs
Vital Signs
Temp Pulse Resp BP Pulse Ox
98.1 F 69 18 123/58 97
09/01/23 08:01 09/01/23 08:01 09/01/23 08:01 09/01/23 08:01 09/01/23 08:01
Physical Exam
General: No Apparent Distress
HEENT: NormoCephalic, Anicteric, Moist mucous membranes and Atraumatic
Respiratory: Crackles
Cardiac: Regular Rhythm
GI: Soft, Non Tender, Non Distended and Normal Bowel Sounds
Musculoskeletal: No Edema
Neuro: Awake, Alert and Oriented
Psych: Calm
Laboratory Results
-
09/01/23 04:13
09/01/23 04:13
Laboratory Results
PT 38.9 Sec (11.4-14.6) H 09/01/23 04:32
INR 3.98 09/01/23 04:32
Total Bilirubin 0.9 mg/dl (0.2-1.3) 09/01/23 04:13
AST 18 U/L (17-59) 09/01/23 04:13
ALT 19 U/L (0-50) 09/01/23 04:13
Alkaline Phosphatase 68 U/L (38-126) 09/01/23 04:13
Troponin I 0.301 ng/ml H* D 09/01/23 07:11
Impression/Plan
-
HPI: 83-year-old male with a past medical history of atrial fibrillation on coumadin, myelofibrosis, COPD, hypertension, hyperlipidemia, type 2 diabetes, chronic kidney disease, cognitive decline, and CKD presents with shortness of breath that
occurred since yesterday. He also had some chest pain last night, lasting for about 1 hour, and relieved with nitroglycerin. Patient states that he has been having worsening dyspnea with activity for the past few weeks, worse last night.
Currently his chest pain-free. Associated symptoms include orthopnea. No fever, no chills. No nausea, no vomiting. His hemoglobin was found to be 6.7 in the ER, he is currently receiving 1 unit of blood. He denies black or bloody stools.
#Acute heart failure with a preserved ejection fraction
#Pulmonary edema
Echo 07/01/2023 shows EF 50 to 55%, mitral valve leaflets
Treat with Lasix 40 mg IV twice daily, consult cardiology, trend weights, trend creatinine
Okay to continue Farxiga as per nephrology
#Chest pain
Resolved, relieved with nitroglycerin
Trend troponins, trend EKG, cardiology consulted
#Acute kidney injury superimposed on stage 4 chronic kidney disease
Suspect secondary to cardiorenal syndrome
Nephrology consulted
#Paroxysmal atrial fibrillation on Coumadin
INR 3.98 today, hold Coumadin
Continue amiodarone and metoprolol for rate control
#Worsening anemia of chronic disease
Denies bleeding
Hemoglobin 6.7 today, getting 1 unit of blood
Gets Aranesp outpt, consult oncology
#JAK2+ myelofibrosis
#CLL
Consult oncology
Non-anion gap metabolic acidosis
Secondary to renal disease, start sodium bicarb
#Type 2 diabetes
Continue Farxiga
Carb controlled diet, sliding scale insulin
DVT prophylaxis�Coumadin
Full code
Total time spent to see the patient on the floor, examine the patient, review data and lab results, discuss treatment plan with patient, nursing staff around 75 minutes.
[2023-09-01] MEDS: LASIX 40 MG IV ×2 (08:42→20:38)
--- NOTE | 2023-09-01 08:53 | EDRN ---
First PRBC unit finished at 0840, charted on paper blood bank form
--- NOTE | 2023-09-01 10:36 | EDRN ---
Second unit of PRBCs finished at 1030am. Documented on paper form and sent to blood bank. Tolerated well.
--- NOTE | 2023-09-01 12:11 | W.CON.NEPH ---
Consultation
-
Date/Time Consultation Requested: 09/01/2023 11 AM
Date/Time Consultation Performed: 09/01/2023 1 PM
Requesting Provider: Dr. Eaton
Performing Provider: Dr. Tian
Reason for Consultation: CKD 4
Medical History
-
Chief Complaint: CKD 4
History of Present Illness:
This is an 83-year-old gentleman with known chronic kidney disease stage IV baseline creatinine running approximately 2.3 up to 2.[address] Najera in the office. He has CLL which is otherwise stable and managed by hematology. He has
biopsy-proven myelofibrosis. He also has atrial fibrillation on chronic anticoagulation with Coumadin and rate control with amiodarone therapy. He had recently been in the hospital earlier this year in June with bright red blood per rectum. In
the last few months he has been otherwise doing fairly stable. He returned to the emergency room today because of worsening dyspnea on exertion as well as chest pain last night. This appears to have been escalating over the last few weeks. He
does not report any blood in his stool.
Past Medical History
1. Hypertension.
2. Hyperlipidemia.
3. Type 2 diabetes.
4. Atrial fibrillation.
5. CLL.
6. CAD.
7. Polycythemia vera.
8. BPH.
9. ABELARDO.
10. CKD.
11. Myelofibrosis.
12. Gout.
13. MGUS.
14. Anemia.
15. History of hematuria in the past.
16. History of cognitive decline.
Social History
Tobacco: Non-Smoker
Alcohol: None
Family History
No CKD
Review of Systems
-
As listed above. No overt shortness of breath. No abdominal pain. No blood in stool. No issues with urine output. The remainder of the complete review of systems was negative.
Physical Exam
Vital Signs
Vital Signs
Temp Pulse Resp BP Pulse Ox
98.2 F 66 26 127/54 94
09/01/23 08:40 09/01/23 10:00 09/01/23 10:00 09/01/23 10:00 09/01/23 10:00
Lab Results
WBC 16.4 10^3/uL (4.8-10.8) H 09/01/23 04:13
RBC 2.38 10^6/uL (4.70-6.10) L 09/01/23 04:13
Hgb 6.7 g/dL (13.0-18.0) L* 09/01/23 04:13
Hct 21.6 % (39.0-52.0) L 09/01/23 04:13
Plt Count 301 10^3/uL (130-400) 09/01/23 04:13
Sodium 141 mmol/L (135-145) 09/01/23 04:13
Potassium 4.8 mmol/L (3.5-5.1) 09/01/23 04:13
Chloride 112 mmol/L (98-107) H 09/01/23 04:13
Carbon Dioxide 19 mmol/L (22-30) L 09/01/23 04:13
BUN 47 mg/dl (9-20) H 09/01/23 04:13
Creatinine 2.8 mg/dL (0.7-1.3) H 09/01/23 04:13
eGFR 21.84 09/01/23 04:13
Glucose 195 mg/dl (70-99) H 09/01/23 04:13
Calcium 8.6 mg/dl (8.4-10.2) 09/01/23 04:13
Qyz-X-Dekcegqxnyq Pept 6950 pg/ml 09/01/23 04:13
Albumin 3.0 g/dl (3.5-5.0) L 09/01/23 04:13
Physical Exam
General: AOx3
HEENT: PERRL, EOMI, Ear/Nose Intact, Hearing Normal, Oropharynx Clear/Moist, Neck Supple, Trachea Midline and No Thyromegaly
Respiratory: Clear
Abdomen: Soft, Nontender, Nondistended, Normal Bowel Sounds and No Hepatosplenomegaly
Musculoskeletal: Edema
Skin: No Rash and No Cyanosis
Psych: Mood/afflect pleasant and Insight/judgement good
Assessment/Plan
-
Assessment:
CKD 4
Metabolic acidosis
CLL
Acute anemia
Ischemic cardiomyopathy
Elevated troponin
pAfib (on AC)
BPH
COPD
Plan:
-follow BMP
-May continue Farxiga
-Recommend hematology evaluation given likely need for transfusion as well as biopsy-proven myelofibrosis
-Cardiology evaluation for elevated and rising troponin
-Repeat iron studies
Data Reviewed
-
Radiology: Image Personally Visualized and interpreted (Chest x-ray on 08/31/2024 by my read shows bilateral infiltrates seen previously)
Medical Tests (Nuc Med, Echo etc): Image Personally Visualized and interpreted (EKG on 09/01/2023 by my read shows was sinus rhythm with right bundle branch block)
Labs: Labs Reviewed by me
Old Records: Reviewed
[2023-09-01 15:13] LABS: Troponin I 0.218 ng/ml
[2023-09-01 15:18] LABS: Procalcitonin 0.19 ng/ml (0.0-0.25)
--- NOTE | 2023-09-01 15:19 | CON.CAR ---
Consultation
Consultation Request
Date/Time Consultation Requested: 09/01/23 7:00AM
Date/Time Consultation Performed: 09/01/23 12:00pm
Requesting Provider: Dr. Eaton
Performing Provider: Dr. Farrell
Reason for Consultation: chest pain
Medical History
-
Chief Complaint: chest pain
History of Present Illness:
He has a past medical history of coronary artery disease, CLL/myeloproliferative disorder/hemolytic anemia, hypertension, chronic kidney disease, diabetes, hyperlipidemia, and proctitis.
Past Medical History
Past Medical History: Arrhythmias (Paroxysmal atrial fibrillation), CAD (Multivessel coronary artery disease), Cancer (CLL/myelodysplastic disorder), CHF (Chronic heart failure with preserved ejection fraction), HTN, Hypercholesterolemia, NIDDM, PR
and Renal Failure (CKD 3-4)
Past Surgical History: Cardiac (Cardiac cath May 2023)
Social History
Tobacco: Non-Smoker
Alcohol: None
Drug: None
Living: With Family
Employment: Retired
Family History
Family History: CAD
Allergies / Home Medications
Allergy/AdvReac Type Severity Reaction Status Date / Time
atorvastatin Allergy ? M-S pain Verified 09/01/23 04:12
immune globulin,gamma (IgG) Allergy Anaphylaxis Verified 09/01/23 04:12
human
prednisone Allergy Unknown Verified 09/01/23 04:12
�Medication �Instructions �Recorded �Confirmed �Type
ipratropium 0.5 mg-albuterol 3 mg 3 ml inhalation R BIDPRN PRN 10/25/16 09/01/23 History
(2.5 mg base)/3 mL nebulization Lung/Breathing Issues
soln
acetaminophen 500 mg tablet 1,000 mg PO Q6HPRN PRN mild pain 07/09/19 09/01/23 History
(Tylenol Extra Strength)
rosuvastatin 5 mg tablet 5 mg PO HS High Cholesterol 07/09/19 09/01/23 History
febuxostat 40 mg tablet 40 mg PO DAILY uric acid 04/29/23 09/01/23 History
ferrous sulfate 325 mg (65 mg 325 mg PO Q48H@1700 Supplement ##0 04/29/23 09/01/23 History
iron) tablet
finasteride 5 mg tablet 5 mg PO QPM BPH 04/29/23 09/01/23 History
gabapentin 100 mg capsule 100 mg PO BID Pain 04/29/23 09/01/23 History
nitroglycerin 0.6 mg/hr 1 patch transdermal DAILY Heart 04/29/23 09/01/23 History
transdermal 24 hour patch Disease/Condition ##0
(Nitro-Dur)
budesonide 0.5 mg/2 mL suspension 0.5 mg inhalation R DAILYPRN PRN 06/02/23 09/01/23 History
for nebulization (Pulmicort) sob
amiodarone 200 mg tablet 200 mg PO DAILY #30 tabs 06/13/23 09/01/23 Rx
aspirin 81 mg tablet,delayed 81 mg PO DAILY Blood Clot 06/20/23 09/01/23 History
release Prevention/Tx
colchicine 0.6 mg tablet 0.6 mg PO DAILYPRN PRN gout 06/20/23 09/01/23 History
metoprolol succinate 25 mg 12.5 mg PO HS Heart 06/20/23 09/01/23 History
tablet,extended release 24 hr Disease/Condition
nitroglycerin 0.3 mg sublingual 0.3 mg sublingual [id number] PRN 06/20/23 09/01/23 History
tablet chest pain
dapagliflozin propanediol 5 mg 5 mg PO DAILY Diabetes 06/22/23 09/01/23 History
tablet (Farxiga)
amlodipine 10 mg tablet (Norvasc) 10 mg PO DAILY 09/01/23 09/01/23 History
guaifenesin 600 mg tablet, 600 mg PO DAILY 09/01/23 09/01/23 History
extended release 12 hr
momelotinib 200 mg tablet (Ojjaara) 200 mg PO QPM 09/01/23 09/01/23 History
warfarin 3 mg tablet 3.5 mg PO QPM Blood Clot 09/01/23 09/01/23 History
Prevention/Tx
Review of Systems
-
History Source: Patient
Constitutional: Weight Gain and Fatigue
EENT: No Symptoms
Respiratory: Trouble Breathing
Cardiac: Chest Pain
Abdomen/GI: No Symptoms
: No Symptoms
Musculoskeletal: No Symptoms
Skin: No Symptoms
Neurological: No Symptoms
Endocrine: No Symptoms
Hematologic/Lymphatic: No Symptoms
Physical Exam
Vital Signs
Temp Pulse Resp BP Pulse Ox
98.2 F 71 21 137/69 93
09/01/23 08:40 09/01/23 13:45 09/01/23 13:45 09/01/23 13:00 09/01/23 13:30
Lab Results
09/01/23 04:13
09/01/23 04:13
Troponin I 0.218 ng/ml H* D 09/01/23 14:33
Xvl-Q-Kvymmcsajya Pept 6950 pg/ml 09/01/23 04:13
Physical Exam
General: No Apparent Distress
HEENT: Normocephalic and Anicteric
Respiratory: Clear and Non Labored Respirations
Cardiac: S1/S2, Regular Rhythm and Murmur (06/08 syst LSB)
GI: Soft and Non Tender
Genito-urinary: No Costovertebral Tender
Musculoskeletal: No Clubbing and No Edema
Skin: Warm and Dry
Neuro: AO x 3
Hematologic/Lymphatic: No Lymphadenopathy
Psych: Calm
Impression / Plan
-
Outpatient Electrical & Instrumentation Supervisor: BRIGITTE Snow
Impression:
Chest pains and shortness of breath
Chronic heart failure with preserved ejection fraction
Recent multiple hospitalizations including proctitis and pneumonia in June 2023
Recent prolonged admission following outpatient cardiac catheterization 05/10 - 05/21/2023
Coronary artery disease status post prior ostial LAD PCI in 2016 with recent cardiac catheterization noting diffusely positive IFR of the LAD back to the left main
History of NSVT last admission
Prior ischemic cardiomyopathy with LVEF of 25 to 30%, most recently recovered to 50-55% on echo
CKD stage IIIb/marked proteinuria
CLL/MGUS/Chronic anemia�management per Dr. 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 Aranesp initiated 05/09/23 every 3 weeks.
COPD, not on home oxygen
Hypertension
Hyperlipidemia
Type 2 diabetes mellitus
Prior hematuria in 2016/history of BPH
Mild cognitive decline
Frailty
Paroxysmal atrial fibrillation, on chronic anticoagulation with Coumadin [history of hemoptysis and hematuria on Xarelto in 2017. Looked into Eliquis 2.5 mg twice daily last admission but he is newly elected health plan with Rx coverage will not
kick in until June 2023]
Obstructive sleep apnea
Gout
IgG deficiency
Pharmacologic nuclear stress test�on January 31, 2023 showed abnormal perfusion imaging with small, mild apical inferior and apical lateral defect suggestive of mild ischemia.� No evidence of scar.� Systolic function was mildly reduced at 42% on
stress test.� Compared to prior study from 2020, apical lateral and apical inferior defects were present then but also inferior, mid inferior and inferolateral segments.� LVEF prior was 40%.
Echocardiogram�from January 22, 2023 showed top normal LV size with low normal or mildly globally reduced systolic function, LVEF of 50 to 55%, thickened mitral valve leaflets with MAC and mild MR, aortic sclerosis with mild AI, normal right heart
with normal PA systolic pressure, dilated aorta with maximum diameter of 4.4 cm.
Left heart catheterization�from July 28, 2015: Mild tapering of distal left main.� Complex high-grade stenosis from proximal to mid LAD involving the origin of a very large diagonal branch.� The mid LAD beyond the diagonal has a 60% stenosis and
60% distal stenosis.� Nonobstructive disease in the other arteries.� LV gram suggested an LVEF of 25 to 30%.� On August 01, 2015 he underwent a 3.0 x 28 mm Alpine Xience 5 drug-eluting stent to the ostial LAD
Left heart catheterization from May 10, 2023: LVEDP 14. Left main large vessel which gives rise to LAD and circumflex. 20% distal left main stenosis. Diffuse atherosclerotic in-stent restenosis up to 50% spanning ostial to mid LAD involving
origin of a very large diagonal branch. Mid LAD beyond diagonal branch has 50 to 60% stenosis and a focal 56% distal stenosis. iFR is grossly positive at 0.7 in the mid to distal LAD. 50 to 60% ostial diagonal stenosis. Circumflex is large with
bifurcating OM1 with 30 to 40% stenosis and diffuse atherosclerotic plaque. RCA is large dominant vessel moderately calcified with a high anterior origin from the aorta. Diffuse atherosclerotic plaque. Following this procedure patient was seen by
CT surgery and was deemed too high risk. Decision was made for medical therapy; could consider high risk PCI if fails medical therapy
PLan:
He presents with chest pains and shortness of breath and a troponin of 0.3. He also has CKD 4 with anemia and hemoglobin of 6.9. He has been getting intermittent transfusions from hematology. I suspect his symptoms are from a combination of
factors including known significant coronary artery disease including significant LAD disease, anemia which is slowly worsening, and some chronic heart failure with preserved ejection fraction. Fortunately he remains in sinus rhythm.
At this point with his creatinine at 2.5-3, I would hold off on any urgent coronary catheterization. We will need to discuss his case with the interventional team to decide whether it is worth attempting to revascularize his LAD.
For now I would continue to treat him medically. Continue aspirin. INR is 3.9 so continue to hold Coumadin. He has no overt bleeding, but his hemoglobin has dropped back down to 6.9. Agree with transfusion.
Continue metoprolol, Crestor, amlodipine, and amiodarone.
Continue Farxiga.
I will continue to trend his troponins. We will repeat an echocardiogram to reevaluate his LVEF
Continue Lasix 40 mg IV daily and follow creatinine. I suspect he does have some mild volume overload. Agree with diuresis with packed red blood cells.
Will defer to nephrology regarding need for sodium bicarbonate.
Data Reviewed
-
EKG: Tracing Personally Visualized and interpreted
Radiology: Report Reviewed by me
Medical Tests (Nuc Med, Echo etc): Report Reviewed by me
Labs: Labs Reviewed by me
Old Records: Reviewed
--- NOTE | 2023-09-01 18:01 | PTCARENOTE ---
received pt to floor approx 15:15 to room 319-2, 3W. Pt oriented to room, home med sent to pharmacy, assessment and VS complete. Call gibbons within reach, pt offered no complaints of pain or discomfort at this time. Pt on tele # [phone], NSR
[2023-09-01] MEDS: NOVOLOG FLEXPEN-MODERATE RESISTANCE SC ×2 (20:27)
[2023-09-01] MEDS: NITRO-DUR TRANSDERM (20:30)
[2023-09-01] MEDS: MUCINEX 600 MG PO (20:33)
[2023-09-01] MEDS: FEOSOL 325 MG PO (20:34)
[2023-09-01] MEDS: NEURONTIN 100 MG PO (20:34)
[2023-09-01] MEDS: SODIUM BICARBONATE 1300 MG PO (20:34)
[2023-09-01] MEDS: PROSCAR 5 MG PO (20:34)
[2023-09-01] MEDS: PACERONE 200 MG PO (20:34)
[2023-09-01] MEDS: FARXIGA 5 MG PO (20:34)
[2023-09-01] MEDS: ASPIR LOW (ENTERIC COATED) 81 MG PO (20:34)
[2023-09-01] MEDS: NON-FORMULARY ITEM 200 MG PO (20:37)
[2023-09-01] MEDS: CRESTOR 5 MG PO (20:46)
[2023-09-01] MEDS: TOPROL XL 12.5 MG PO (20:46)
[2023-09-01 22:09] LABS: Glucose - Point of Care 242 mg/dl (70-99)
[2023-09-01] MEDS: SODIUM BICARBONATE PO (22:10)
[2023-09-02] VITALS (7 sets, daily range): BP systolic 106–120; BP diastolic 52–59; PULSE 68; O2SAT 97–98; BMI 22.2
--- NOTE | 2023-09-02 01:09 | PTCARENOTE ---
pt had 4 loose foul smelling bowel movements, provider notified, stool sent to lab.
--- NOTE | 2023-09-02 05:12 | W.PN.UPDATE ---
Update Note
Progress Note Update
nurse reports pt had 4 foul smelling loose bm
not on abx , afebrile
will check cdiff, stool culture and norovirus
[2023-09-02 07:38] LABS: Hematocrit 25.4 % (39.0-52.0); Mean Corp Hgb Conc. 31.5 g/dL (33.0-37.0); Mean Corpuscular Hgb 28.6 pg (27.0-31.0); Mean Corpuscular Volume 90.7 fL (80.0-94.0); Mean Platelet Volume 10.8 fL (7.4-10.4); Platelet Count 219 10^3/uL (130-400); Red Cell Dist. Width 19.9 % (11.5-14.5); White Blood Cell Count 13.5 10^3/uL (4.8-10.8)
[2023-09-02 07:45] LABS: INR 2.52; PT 27.1 Sec (11.4-14.6)
[2023-09-02 08:06] LABS: Blood Urea Nitrogen 54 mg/dl (9-20); Calcium 8.2 mg/dl (8.4-10.2); Carbon Dioxide 21 mmol/L (22-30); Chloride 107 mmol/L (98-107); Estimated Creatinine Clearance 17 ml/min; Glucose 131 mg/dl (70-99); HDL Cholesterol 32 mg/dl; LDL Cholesterol, Calculated 37 mg/dl; Magnesium 2.1 mg/dl (1.6-2.3); Potassium 3.9 mmol/L (3.5-5.1); Sodium 140 mmol/L (135-145); Total Cholesterol 98 mg/dl (50-199); Triglyceride 146 mg/dl (10-149); Very Low Density Lipoprotein 29 mg/dl (0-30); eGFR 17.93
[2023-09-02 08:20] LABS: Glucose - Point of Care 154 mg/dl (70-99)
--- NOTE | 2023-09-02 08:36 | W.PN.CARDCBS ---
Today's Communication / Plan
-
His symptoms are from a combination of factors including known significant coronary artery disease including significant LAD disease, anemia which is slowly worsening, and some chronic heart failure with preserved ejection fraction.
H/H improved after 2 unit PRBCs. Monitor H/H. He feels improved after transfusion.
Remains in sinus rhythm. Monitor INR. Coumadin held with elevated INR 3.9 at admit.
Cont medical therapy for minimal trop with peak 0.3. He feels improved with blood products. Given his creatinine at 2.5-3, would hold off on any urgent invasive cath. Cont medical therapy for LAD for now. Cr 3,3 September 01.
EKG RBBB no change from prior Jun 2023
Continue metoprolol, Crestor, amlodipine, and amiodarone.
Continue Farxiga.
Echocardiogram to reevaluate his LVEF is pending.
Impression / Plan
-
.
Outpatient Filters Assembler: BRIGITTE Snow
Impression:
Chest pains and shortness of breath
Chronic heart failure with preserved ejection fraction
Recent multiple hospitalizations including proctitis and pneumonia in June 2023
Recent prolonged admission following outpatient cardiac catheterization 05/10 - 05/21/2023
Coronary artery disease status post prior ostial LAD PCI in 2016 with recent cardiac catheterization noting diffusely positive IFR of the LAD back to the left main
History of NSVT last admission
Prior ischemic cardiomyopathy with LVEF of 25 to 30%, most recently recovered to 50-55% on echo
CKD stage IIIb/marked proteinuria
CLL/MGUS/Chronic anemia�management per Dr. 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 Aranesp initiated 05/09/23 every 3 weeks.
COPD, not on home oxygen
Hypertension
Hyperlipidemia
Type 2 diabetes mellitus
Prior hematuria in 2016/history of BPH
Mild cognitive decline
Frailty
Paroxysmal atrial fibrillation, on chronic anticoagulation with Coumadin [history of hemoptysis and hematuria on Xarelto in 2017. Looked into Eliquis 2.5 mg twice daily last admission but he is newly elected health plan with Rx coverage will not
kick in until June 2023]
Obstructive sleep apnea
Gout
IgG deficiency
Pharmacologic nuclear stress test�on January 31, 2023 showed abnormal perfusion imaging with small, mild apical inferior and apical lateral defect suggestive of mild ischemia.� No evidence of scar.� Systolic function was mildly reduced at 42% on
stress test.� Compared to prior study from 2020, apical lateral and apical inferior defects were present then but also inferior, mid inferior and inferolateral segments.� LVEF prior was 40%.
Echocardiogram�from January 22, 2023 showed top normal LV size with low normal or mildly globally reduced systolic function, LVEF of 50 to 55%, thickened mitral valve leaflets with MAC and mild MR, aortic sclerosis with mild AI, normal right heart
with normal PA systolic pressure, dilated aorta with maximum diameter of 4.4 cm.
Left heart catheterization�from July 28, 2015: Mild tapering of distal left main.� Complex high-grade stenosis from proximal to mid LAD involving the origin of a very large diagonal branch.� The mid LAD beyond the diagonal has a 60% stenosis and
60% distal stenosis.� Nonobstructive disease in the other arteries.� LV gram suggested an LVEF of 25 to 30%.� On August 01, 2015 he underwent a 3.0 x 28 mm Alpine Xience 5 drug-eluting stent to the ostial LAD
Left heart catheterization from May 10, 2023: LVEDP 14. Left main large vessel which gives rise to LAD and circumflex. 20% distal left main stenosis. Diffuse atherosclerotic in-stent restenosis up to 50% spanning ostial to mid LAD involving
origin of a very large diagonal branch. Mid LAD beyond diagonal branch has 50 to 60% stenosis and a focal 56% distal stenosis. iFR is grossly positive at 0.7 in the mid to distal LAD. 50 to 60% ostial diagonal stenosis. Circumflex is large with
bifurcating OM1 with 30 to 40% stenosis and diffuse atherosclerotic plaque. RCA is large dominant vessel moderately calcified with a high anterior origin from the aorta. Diffuse atherosclerotic plaque. Following this procedure patient was seen by
CT surgery and was deemed too high risk. Decision was made for medical therapy; could consider high risk PCI if fails medical therapy
Plan:
He presented with chest pains and shortness of breath and a troponin of 0.3. He also has CKD 4 with anemia and hemoglobin of 6.9. He has been getting intermittent transfusions from hematology.
His symptoms are from a combination of factors including known significant coronary artery disease including significant LAD disease, anemia which is slowly worsening, and some chronic heart failure with preserved ejection fraction.
H/H improved after 2 unit PRBCs. Monitor H/H. He feels improved after transfusion.
Remains in sinus rhythm. Monitor INR. Coumadin held with elevated INR 3.9 at admit.
Cont medical therapy for minimal trop with peak 0.3. He feels improved with blood products. Given his creatinine at 2.5-3, would hold off on any urgent invasive cath. Cont medical therapy for LAD for now. Cr 3,3 September 01.
EKG RBBB no change from prior Jun 2023
Continue metoprolol, Crestor, amlodipine, and amiodarone.
Continue Farxiga.
Echocardiogram to reevaluate his LVEF is pending.
Continue Lasix 40 mg IV daily and transition to oral lasix next 24 hrs and follow creatinine. He has mild volume overload. Agree with diuresis with packed red blood cells.
His wt is 154 which is less than Jun 2023 wt.
Defer to nephrology regarding need for sodium bicarbonate.
Progress Note - Filters Assembler
Subjective
Date of Service: September 02, 2023
Pt seen and examined. No complaints. No chest pain or shortness of breath.
Objective
Labs:
09/02/23 07:13
09/02/23 07:13
Labs
Hgb 8.0 g/dL (13.0-18.0) L 09/02/23 07:13
Hct 25.4 % (39.0-52.0) L 09/02/23 07:13
Plt Count 219 10^3/uL (130-400) D 09/02/23 07:13
PT 27.1 Sec (11.4-14.6) H 09/02/23 07:13
INR 2.52 09/02/23 07:13
Sodium 140 mmol/L (135-145) 09/02/23 07:13
Potassium 3.9 mmol/L (3.5-5.1) 09/02/23 07:13
BUN 54 mg/dl (9-20) H 09/02/23 07:13
Creatinine 3.3 mg/dL (0.7-1.3) H 09/02/23 07:13
Glucose 131 mg/dl (70-99) H 09/02/23 07:13
Troponins
09/01/23 09/01/23 09/01/23
04:13 07:11 14:33
Troponin I 0.194 H* 0.301 H* D 0.218 H* D
09/01/23
20:30
Troponin I Cancelled
Vital Signs and I&O:
Vital Signs
Temp Pulse Resp BP Pulse Ox
97.8 F 69 18 120/56 93
09/02/23 07:00 09/02/23 07:00 09/02/23 07:00 09/02/23 07:00 09/02/23 07:00
Vital Signs
Temp Pulse Resp BP Pulse Ox
97.8 F 69 18 120/56 93
09/02/23 07:00 09/02/23 07:00 09/02/23 07:00 09/02/23 07:00 09/02/23 07:00
Intake & Output
08/31/23 09/01/23 09/02/23 09/03/23
06:59 06:59 06:59 06:59
Intake Total 720 / 720
Output Total 150 / 150
Balance 570 / 570
Physical Exam
Physical Exam
General: No acute distress, AAOX3
Neck: Negative JVD
Heart: Regular, Negative S3 positive S1/S2, Negative S4, No murmur
Lungs: CTA b/l, negative wheezes/rales/rhonchi
Abd: Positive BS, NT/ND, neg rebound/rigidity/guarding
Ext: Negative cyanosis/clubbing/edema
Neuro: nonfocal
[2023-09-02 08:38] LABS: TSH Reflex To Free T4 2.16 uIU/ml (0.47-4.68)
--- NOTE | 2023-09-02 08:38 | W.PN.HOSP.TC ---
Today's Communication/Plan
-
see bold
Assessment / Plan
Assessment / Plan
HPI: 83-year-old male with a past medical history of atrial fibrillation on coumadin, myelofibrosis, COPD, hypertension, hyperlipidemia, type 2 diabetes, chronic kidney disease, cognitive decline, and CKD presents with shortness of breath that
occurred since yesterday. He also had some chest pain last night, lasting for about 1 hour, and relieved with nitroglycerin. Patient states that he has been having worsening dyspnea with activity for the past few weeks, worse last night.
Currently his chest pain-free. Associated symptoms include orthopnea. No fever, no chills. No nausea, no vomiting. His hemoglobin was found to be 6.7 in the ER, he is currently receiving 1 unit of blood. He denies black or bloody stools.
#Acute hypoxic respiratory failure
#Acute heart failure with a preserved ejection fraction
#Pulmonary edema
Echo 07/01/2023 shows EF 50 to 55%, mitral valve leaflets
Cr bumped to 3.3 today, from 2.8, hold IV lasix
Cardiology following, trend weights, trend creatinine
Currently requiring 2 L of oxygen, down from 5 L, wean as tolerated. He does not wear oxygen at home
Okay to continue Farxiga as per nephrology
#Chest pain
Resolved, relieved with nitroglycerin
Troponins peaked at 0.301
Cardiology recommends medical management
#Acute kidney injury superimposed on stage 4 chronic kidney disease
Suspect secondary to cardiorenal syndrome
Creatinine 3.3 today, was 2.8 upon admission, baseline 2.3
Nephrology following
#Paroxysmal atrial fibrillation on Coumadin
INR 2.52 today, resume Coumadin
Continue amiodarone and metoprolol for rate control
#Worsening anemia of chronic disease
Denies bleeding
Hemoglobin 8.0 s/p 1 unit on PRB on 08/31, increased from 6.7 today
Gets Aranesp outpt, oncology following
Median time to response to Ojjaara is 5 months. Anticipate he will continue to require transfusions for some time.
#JAK2+ myelofibrosis
#CLL
Oncology following
#Non-anion gap metabolic acidosis
Secondary to renal disease & diarrhea, continue sodium bicarb
#Type 2 diabetes
Continue Farxiga
Carb controlled diet, sliding scale insulin
#C. difficile diarrhea
Start oral vancomycin day 1
DVT prophylaxis�Coumadin
Full code
Physical Exam
General: Appears frail, chronically ill, no acute distress
HEENT: Normocephalic, Atraumatic, EOMI, MMM
Respiratory: Clear to Auscultation bilaterally
Cardiac: Bibasilar crackles
GI: Soft, Nontender, Nondistended, Normal Bowel Sounds
Extremities: No Clubbing, Cyanosis, or Edema
Neuro: Nonfocal/Grossly Intact
Psych: Calm, Cooperative
Derm: No Visible lesions
Anticipated Discharge: > 48 hours
Subjective/Interval History
-
Date of Service: September 01, 2023
Patient's breathing and hypoxia has improved. He is having diarrhea, C. difficile positive. No fever, no vomiting.
Objective Data
-
Labs:
Laboratory Results
09/01/23 09/01/23
04:13 04:32
WBC 16.4 H
Hgb 6.7 L*
Hct 21.6 L
Plt Count 301
PT 38.9 H
INR 3.98
Sodium 141
Potassium 4.8
Chloride 112 H
Carbon Dioxide 19 L
BUN 47 H
Creatinine 2.8 H
Glucose 195 H
Calcium 8.6
Total Bilirubin 0.9
AST 18
ALT 19
Alkaline Phosphatase 68
Vital Signs:
Vital Signs
Temp Pulse Resp BP Pulse Ox
98.2 F 71 21 137/69 93
09/01/23 08:40 09/01/23 13:45 09/01/23 13:45 09/01/23 13:00 09/01/23 13:30
[2023-09-02] MEDS: MUCINEX 600 MG PO ×2 (09:08→20:44)
[2023-09-02] MEDS: PACERONE 200 MG PO (09:08)
[2023-09-02] MEDS: FARXIGA 5 MG PO (09:08)
[2023-09-02] MEDS: NEURONTIN 100 MG PO ×2 (09:08→20:44)
[2023-09-02] MEDS: NITRO-DUR 0.599999999999999978 MG TRANSDERM (09:08)
[2023-09-02] MEDS: ASPIR LOW (ENTERIC COATED) 81 MG PO (09:09)
[2023-09-02] MEDS: SODIUM BICARBONATE 1300 MG PO ×3 (09:09→21:49)
[2023-09-02] MEDS: LASIX IV (09:09)
[2023-09-02] MEDS: NOVOLOG FLEXPEN-MODERATE RESISTANCE 1 UNITS SC ×2 (09:10→17:43)
--- NOTE | 2023-09-02 10:51 | CON.ONC ---
Impression
Impression
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
Hx CLL, currently ROD
Hx fludarabine for CLL -> needs irradiated blood products
CHF exacerbation
Plan
Plan
Hgb improved s/p 2U PRBC's.
Median time to response to Ojjaara is 5 months. Anticipate he will continue to require transfusions for some time. Continues on outpt Aranesp.
Okay for D/C home when off O2 (not on home O2)
Discussed dietary management of diarrhea, loose stools.
Start Imodium PRN.
Thank you for consult, will follow along with you.
Patient History
History of Present Illness
83-year-old man with history of CLL, more recent diagnosis of myelofibrosis. 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
no evidence of CLL in the marrow. Patient had been on Jakafi previously. Within the last week or 2, he started Ojjaara for anemia and myelofibrosis. He presented with shortness of breath and was found to have hemoglobin of 6.9 complicated by CHF.
Since admission, he has been transfused 2 units of packed red blood cells, feels better, still on 2 L of oxygen. He complains of soft stools, sometimes diarrhea which happens without warning and results in incontinence. He has not tried any
therapies for the diarrhea. Denies fever, chills. Patient denies pruritus, early satiety, left upper quadrant pain or fullness.
Past-Medical/Surgical History
Past Medical History
Atrial fibrillation, CAD, COPD, HTN, Hypercholesterolemia, NIDDM, [place], Myelofibrosis, Gout, Cognitive decline, CKD, Anemia, PNA, Hernia, Bleeding gums
Past Surgical History
Cardiac Stents X2
Social History
Tobacco: Former Smoker
Alcohol: None
Drug: None
Personal:
Living: With Family
Family History
Family History: CAD
Allergies / Home Medications
Patient Medication
�Medication �Instructions �Recorded �Confirmed �Last Taken �Type
ipratropium 0.5 mg-albuterol 3 mg 3 ml inhalation R BIDPRN PRN 10/25/16 09/01/23 04/29/23 History
(2.5 mg base)/3 mL nebulization Lung/Breathing Issues
soln
acetaminophen 500 mg tablet 1,000 mg PO Q6HPRN PRN mild pain 07/09/19 09/01/23 Unknown History
(Tylenol Extra Strength)
rosuvastatin 5 mg tablet 5 mg PO HS High Cholesterol 07/09/19 09/01/23 08/31/23 History
febuxostat 40 mg tablet 40 mg PO DAILY uric acid 04/29/23 09/01/23 08/31/23 History
ferrous sulfate 325 mg (65 mg 325 mg PO Q48H@1700 Supplement ##0 04/29/23 09/01/23 08/22/23 History
iron) tablet
finasteride 5 mg tablet 5 mg PO QPM BPH 04/29/23 09/01/23 08/31/23 History
gabapentin 100 mg capsule 100 mg PO BID Pain 04/29/23 09/01/23 08/31/23 History
nitroglycerin 0.6 mg/hr 1 patch transdermal DAILY Heart 04/29/23 09/01/23 08/31/23 History
transdermal 24 hour patch Disease/Condition ##0
(Nitro-Dur)
budesonide 0.5 mg/2 mL suspension 0.5 mg inhalation R DAILYPRN PRN 06/02/23 09/01/23 Unknown History
for nebulization (Pulmicort) sob
amiodarone 200 mg tablet 200 mg PO DAILY #30 tabs 06/13/23 09/01/23 08/31/23 Rx
aspirin 81 mg tablet,delayed 81 mg PO DAILY Blood Clot 06/20/23 09/01/23 08/31/23 History
release Prevention/Tx
colchicine 0.6 mg tablet 0.6 mg PO DAILYPRN PRN gout 06/20/23 09/01/23 Unknown History
metoprolol succinate 25 mg 12.5 mg PO HS Heart 06/20/23 09/01/23 08/31/23 History
tablet,extended release 24 hr Disease/Condition
nitroglycerin 0.3 mg sublingual 0.3 mg sublingual [id number] PRN 06/20/23 09/01/23 08/31/23 History
tablet chest pain
dapagliflozin propanediol 5 mg 5 mg PO DAILY Diabetes 06/22/23 09/01/23 08/31/23 History
tablet (Farxiga)
amlodipine 10 mg tablet (Norvasc) 10 mg PO DAILY 09/01/23 09/01/23 08/31/23 History
guaifenesin 600 mg tablet, 600 mg PO DAILY 09/01/23 09/01/23 08/31/23 History
extended release 12 hr
momelotinib 200 mg tablet (Ojjaara) 200 mg PO QPM 09/01/23 09/01/23 08/31/23 History
warfarin 3 mg tablet 3.5 mg PO QPM Blood Clot 09/01/23 09/01/23 08/31/23 History
Prevention/Tx
Active Medications
Generic Name Dose Route Start Last Admin
Trade Name Freq PRN Reason Stop Dose Admin
Acetaminophen 1,000 mg 09/01/23 11:25
Acetaminophen 500 Mg Tablet PO 09/29/23 11:24
Q6HPRN PRN
mild pain
Albuterol/Ipratropium 3 ml 09/01/23 11:25
Ipratropium 0.5/Albuterol 3 Mg (3 Ml Ampul) INH
R BIDPRN PRN
Lung/Breathing Issues
Protocol
Amiodarone HCl 200 mg 09/01/23 11:25 09/02/23 09:08
Amiodarone 200 Mg Tablet PO 09/29/23 11:24 200 mg
DAILY SYED Administration
Aspirin 81 mg 09/01/23 11:25 04/01/24 09:09
Aspirin 81 Mg (Enteric Coated) Tablet PO 09/29/23 11:24 81 mg
DAILY SYED Administration
Budesonide 0.5 mg 09/01/23 11:25
Budesonide (Pulmicort Respules) 0.5 Mg/2 Ml INH
R DAILYPRN PRN
Lung/Breathing Issues
Protocol
Colchicine 0.6 mg 09/01/23 11:25
Colchicine 0.6 Mg Tablet PO 09/29/23 11:24
DAILYPRN PRN
gout
Dapagliflozin 5 mg 09/01/23 11:25 09/02/23 09:08
Dapagliflozin (Farxiga) 5 Mg Tablet PO 09/29/23 11:24 5 mg
DAILY SYED Administration
Dextrose 12.5 grams 09/01/23 11:25
Dextrose 50% (0.5 Grams/Ml) 50 Ml Syringe IV 09/29/23 11:24
[id number] PRN
hypoglycemia
Protocol
Ferrous Sulfate 325 mg 09/01/23 17:00 09/01/23 20:34
Ferrous Sulfate 325 Mg Tablet PO 09/29/23 16:59 325 mg
Q48H SYED Administration
Finasteride 5 mg 09/01/23 18:00 09/01/23 20:34
Finasteride 5 Mg Tablet PO 09/29/23 17:59 5 mg
QPM SYED Administration
Furosemide 40 mg 09/01/23 16:00 09/02/23 09:09
Furosemide 40 Mg (10 Mg/Ml) 4 Ml Vial IV 09/29/23 15:59 Not Given
BID AT 0800,1600 SYED
Gabapentin 100 mg 09/01/23 20:00 09/02/23 09:08
Gabapentin 100 Mg Capsule PO 09/29/23 19:59 100 mg
BID SYED Administration
Glucagon 1 mg 09/01/23 11:25
Glucagon 1 Mg Vial IM 09/29/23 11:24
PRN PRN
hypoglycemia
Protocol
Guaifenesin 600 mg 09/01/23 20:00 09/02/23 09:08
Guaifenesin 600 Mg Extended Release Tablet PO 09/29/23 19:59 600 mg
BID SYED Administration
Insulin Aspart 0 units 09/01/23 11:30 09/02/23 09:10
Insulin Aspart Moderate Resistance 300 Units/3 Ml Pen.Injctr SC 09/29/23 11:29 1 units
AC SYED Administration
Protocol
Metoprolol Succinate 12.5 mg 09/01/23 22:00 09/01/23 20:46
Metoprolol 12.5 Mg Extended Release Dose (1/2 Of 25 Mg Xl Tablet) PO 09/29/23 21:59 12.5 mg
HS SYED Administration
Nitroglycerin 0.4 mg 09/01/23 18:08
Nitroglycerin 0.4 Mg Sl Tablet SL 09/29/23 18:07
[id number] PRN
chest pain
Nitroglycerin 0.6 mg 09/01/23 11:25 09/02/23 09:08
Nitroglycerin 0.6 Mg/Hour Patch TRANSDERM 09/29/23 11:24 0.6 mg
DAILY SYED Administration
Febuxostat 40 Mg 0 mg 09/01/23 11:25
Tablet (Uloric) Po PO 09/29/23 11:24
Daily DAILY SYED
Momelotinib [Ojjaara 0 mg 09/01/23 18:00 09/01/23 20:37
] 200 Mg Take One PO 09/29/23 17:59 200 mg
Tablet Po Qpm QPM SYED Administration
Ondansetron HCl 4 mg 09/01/23 11:25
Ondansetron 4 Mg/2 Ml Vial IV 09/29/23 11:24
Q6HPRN PRN
NAUSEA/VOMITING
Rosuvastatin Calcium 5 mg 09/01/23 22:00 09/01/23 20:46
Rosuvastatin (Crestor) 5 Mg Tablet PO 09/29/23 21:59 5 mg
HS SYED Administration
Sodium Bicarbonate 1,300 mg 09/01/23 16:00 09/02/23 09:09
Sodium Bicarbonate 650 Mg Tablet PO 09/29/23 15:59 1,300 mg
TID SYED Administration
Sodium Chloride 0 flush 09/01/23 18:00
Sodium Chloride 0.9% (Flush) Syringe IV 09/29/23 17:59
PER PROTOCOL SYED
Review of Systems
-
History Source: Patient and Records
All Other Systems: Reviewed and Negative
Constitutional: Reports Fatigue; Denies Fever, Weight Gain, Weight Loss, No Appetite or Night Sweats
EENT: Reports No Symptoms
Respiratory: Reports Trouble Breathing; Denies Cough or Hemoptysis
Cardiac: Denies Chest Pain or Diaphoresis
GI: Denies Bloody Stools or Black Stools
: Reports Dysuria and Frequency; Denies Incontinence
Musculoskeletal: Reports No Symptoms
Skin: Denies Itching or Rash
Neuro: Reports No Symptoms
Endocrine: Reports No Symptoms
Hematologic/Lymphatic: Reports No Symptoms
Allergy / Immunology: Reports No Symptoms
Psych: Reports No Symptoms
Physical Exam
-
General: Well Developed, Well Nourished, No Apparent Distress and Conversant
HEENT: Negative Jaundice or Moist Mucous Membranes
Cardiology: Normal Sinus Rhythm, S1 and S2
Pulmonary: Clear; Negative Wheezes
GI: Soft and Normal Bowel Sounds; Negative Distended
Musculoskeletal: No Clubbing and No Cyanosis
Extremities: No C/C/E
Neurology: Non Focal, No Lateralizing Symptoms and No Word Finding Difficulty
Skin: Warm and Dry; Negative Rash
Hematologic / Lymphatic: No Lymphadenopathy and No Petechiae
Psych: Calm and Intact Judgement/Insight
Labs
Lab Results
WBC 13.5 10^3/uL (4.8-10.8) H 09/02/23 07:13
RBC 2.80 10^6/uL (4.70-6.10) L 09/02/23 07:13
Hgb 8.0 g/dL (13.0-18.0) L 09/02/23 07:13
Hct 25.4 % (39.0-52.0) L 09/02/23 07:13
MCV 90.7 fL (80.0-94.0) 09/02/23 07:13
MCH 28.6 pg (27.0-31.0) 09/02/23 07:13
MCHC 31.5 g/dL (33.0-37.0) L 09/02/23 07:13
RDW 19.9 % (11.5-14.5) H 09/02/23 07:13
Plt Count 219 10^3/uL (130-400) D 09/02/23 07:13
MPV 10.8 fL (7.4-10.4) H 09/02/23 07:13
Abs Immat Gran (auto) 0.6 10^3/uL (0-0.05) H 09/01/23 04:13
Absolute Neuts (auto) 13.5 10^3/uL (1.4-6.5) H 09/01/23 04:13
Absolute Lymphs (auto) 1.3 10^3/uL (1.2-3.4) 09/01/23 04:13
Absolute Monos (auto) 0.9 10^3/uL (0.1-0.6) H 09/01/23 04:13
Absolute Eos (auto) 0.2 10^3/uL (0-0.7) 09/01/23 04:13
Absolute Basos (auto) 0.1 10^3/uL (0-0.2) 09/01/23 04:13
Immature Gran % 3.3 % (0-0.5) H 09/01/23 04:13
Neutrophils % 82.2 % (42.2-75.2) H 09/01/23 04:13
Lymphocytes % 7.7 % (20.5-51.1) L 09/01/23 04:13
Monocytes % 5.2 % (1.7-9.3) 09/01/23 04:13
Eosinophils % 0.9 % (0-6) 09/01/23 04:13
Basophils % 0.7 % (0-2) 09/01/23 04:13
Creatinine 3.3 mg/dL (0.7-1.3) H 09/02/23 07:13
Vital Signs
Vital Signs
Temp Pulse Resp BP Pulse Ox
97.8 F 69 18 120/56 93
09/02/23 07:00 09/02/23 09:08 09/02/23 07:00 09/02/23 09:08 09/02/23 07:00
--- NOTE | 2023-09-02 12:10 | CARDSERVLU ---
Echocardiogram with Lumason completed after protocol screening completed. Allergies verified.
Patent IV site: _Rt AC____
IV site flushed with 0.9% NaCl pre and post administration.
Diluted bolus method utilized to enhance visualization of ventricular fernandez.
Total volume given: __1.5__ mL
Patient tolerated all procedures well without complications.
[2023-09-02 12:35] LABS: Glucose - Point of Care 138 mg/dl (70-99)
[2023-09-02] MEDS: NOVOLOG FLEXPEN-MODERATE RESISTANCE SC (12:49)
[2023-09-02] MEDS: FIRVANQ 125 MG PO ×3 (12:54→21:49)
--- NOTE | 2023-09-02 15:37 | W.PN.NEPH.PH ---
Today's Communication / Plan
-
labs in am
Assessment/Plan
-
Assessment:
CKD 4
Metabolic acidosis
CLL
Acute anemia
Ischemic cardiomyopathy
Elevated troponin
pAfib (on AC)
BPH
COPD
Plan:
-GER-cr up at 3.3, last dose lasix 08/31
-May hold Farxiga too if cr is up tomorrow
hematology follows for myelofibrosis, monitor hb
-Cardiology evaluation for elevated and rising troponin
labs in am
-
-
Date of Service: September 02, 2023
CC / HPI / ROS
-
Chief Complaint:
GER with CKD
History of Present Illness:
cr up at 3.3
hb better at 8 post 2 units PRBC
BP stable
Review of Systems:
no cp or sob at rest
no dysuria
Labs
-
Labs:
WBC 13.5 10^3/uL (4.8-10.8) H 09/02/23 07:13
RBC 2.80 10^6/uL (4.70-6.10) L 09/02/23 07:13
Hgb 8.0 g/dL (13.0-18.0) L 09/02/23 07:13
Hct 25.4 % (39.0-52.0) L 09/02/23 07:13
Plt Count 219 10^3/uL (130-400) D 09/02/23 07:13
Sodium 140 mmol/L (135-145) 09/02/23 07:13
Potassium 3.9 mmol/L (3.5-5.1) 09/02/23 07:13
Chloride 107 mmol/L (98-107) 09/02/23 07:13
Carbon Dioxide 21 mmol/L (22-30) L 09/02/23 07:13
BUN 54 mg/dl (9-20) H 09/02/23 07:13
Creatinine 3.3 mg/dL (0.7-1.3) H 09/02/23 07:13
eGFR 17.93 09/02/23 07:13
Glucose 131 mg/dl (70-99) H 09/02/23 07:13
Calcium 8.2 mg/dl (8.4-10.2) L 09/02/23 07:13
Qld-L-Hmaxmvgdcsj Pept 6950 pg/ml 09/01/23 04:13
Albumin 3.0 g/dl (3.5-5.0) L 09/01/23 04:13
Physical Exam
-
Vital Signs:
Vital Signs
Temp Pulse Resp BP Pulse Ox
97.9 F 70 18 111/58 96
09/02/23 11:00 09/02/23 11:00 09/02/23 11:00 09/02/23 11:00 09/02/23 11:00
Cardiovascular:: Regular rate and rhythm
Respiratory:: Bilateral: CTA
Lung Excursion:: Normal
Abdomen:: Nontender and Soft
Extremity Edema:: None: Bilateral:
Crespo Catheter: No
[2023-09-02 16:46] LABS: Glucose - Point of Care 179 mg/dl (70-99)
[2023-09-02] MEDS: COUMADIN 3 MG PO (17:21)
[2023-09-02] MEDS: COUMADIN 0.5 MG PO (17:21)
[2023-09-02] MEDS: PROSCAR 5 MG PO (17:24)
[2023-09-02] MEDS: NON-FORMULARY ITEM 200 MG PO (17:34)
[2023-09-02 21:17] LABS: Glucose - Point of Care 172 mg/dl (70-99)
[2023-09-02] MEDS: CRESTOR 5 MG PO (21:49)
[2023-09-02] MEDS: TOPROL XL 12.5 MG PO (21:49)
[2023-09-03] VITALS (7 sets, daily range): BP systolic 99–137; BP diastolic 55–63; PULSE 78–83; BMI 21.6
--- NOTE | 2023-09-03 06:53 | W.PN.HOSP.TC ---
Today's Communication/Plan
-
cont oral vancomycin
monitor H&H
bicarb supplementation
monitor renal function
cont coumadin
Daily INR
Assessment / Plan
Assessment / Plan
HPI: 83-year-old male with a past medical history of atrial fibrillation on coumadin, myelofibrosis, COPD, hypertension, hyperlipidemia, type 2 diabetes, chronic kidney disease, cognitive decline, and CKD presents with shortness of breath that
occurred since yesterday. He also had some chest pain last night, lasting for about 1 hour, and relieved with nitroglycerin. Patient states that he has been having worsening dyspnea with activity for the past few weeks, worse last night.
Currently his chest pain-free. Associated symptoms include orthopnea. No fever, no chills. No nausea, no vomiting. His hemoglobin was found to be 6.7 in the ER, he is currently receiving 1 unit of blood. He denies black or bloody stools.
#Acute hypoxic respiratory failure
#Acute heart failure with a preserved ejection fraction
#Pulmonary edema
Echo 07/01/2023 shows EF 50 to 55%, mitral valve leaflets
elevating Cr, hold IV lasix Farxiga
Nephro eval appreciated
Cardiology following, trend weights, trend creatinine
wean oxygen supplementation as tolerated
#Chest pain
Resolved, relieved with nitroglycerin
Troponins peaked at 0.301
Cardiology recommends medical management
#Acute kidney injury superimposed on stage 4 chronic kidney disease
Nephrology eval appreciated
#Paroxysmal atrial fibrillation on Coumadin
INR therapeutic, cont Coumadin
Continue amiodarone and metoprolol for rate control
#Worsening anemia of chronic disease
Denies bleeding
Hemoglobin 8.0 s/p 1 unit on PRB on 08/31, increased from 6.7
cont monitoring H&H
Gets Aranesp outpt, oncology following
Median time to response to Ojjaara is 5 months. Anticipate he will continue to require transfusions for some time.
#JAK2+ myelofibrosis
#CLL
Oncology eval appreciated
#Non-anion gap metabolic acidosis
Secondary to renal disease & diarrhea, continue sodium bicarb
#reported hx Type 2 diabetes
-A1c however consistently non-diabetic most recent A1c 5.5
-Farxiga for heart failure on hold d/t worsening kidney function
-FS consistently within goal, minimal insulin correction required
-ok to discontinue routine FS
#C. difficile diarrhea
Cont oral vancomycin day 2
Diarrhea since improved
DVT prophylaxis�Coumadin
Full code
PT/OT appreciated Home health
I spent a total of 53 minutes with the patient or on the floor. More than 50% of this time involved counseling and coordination of care.
Physical Exam
General: Appears frail, chronically ill, no acute distress
HEENT: Normocephalic, Atraumatic, EOMI, MMM
Respiratory: Clear to Auscultation bilaterally
Cardiac: Bibasilar crackles
GI: Soft, Nontender, Nondistended, Normal Bowel Sounds
Extremities: No Clubbing, Cyanosis, or Edema
Neuro: Nonfocal/Grossly Intact
Psych: Calm, Cooperative
Derm: No Visible lesions
Anticipated Discharge: 24 - 48 hours
Subjective/Interval History
-
Date of Service: September 03, 2023
reports improvement in diarrhea/resolving. Denies new acute issues. reports overall feeling well.
Objective Data
-
Labs:
Laboratory Results
09/03/23
06:00
WBC Pending
Hgb Pending
Hct Pending
Plt Count Pending
PT Pending
INR Pending
Sodium Pending
Potassium Pending
Chloride Pending
Carbon Dioxide Pending
BUN Pending
Creatinine Pending
Glucose Pending
Calcium Pending
Vital Signs:
Vital Signs
Temp Pulse Resp BP Pulse Ox
98.0 F 87 20 104/56 93
09/03/23 03:46 09/03/23 03:46 09/03/23 03:46 09/03/23 03:46 09/03/23 03:46
I&O
09/01/23 09/02/23 09/03/23
06:59 06:59 06:59
Intake Total 720 / 720 1320 / 1320
Output Total 150 / 150 100 / 100
Balance 570 / 570 1220 / 1220
[2023-09-03 07:38] LABS: Hematocrit 24.2 % (39.0-52.0); Hemoglobin 7.7 g/dL (13.0-18.0); Mean Corp Hgb Conc. 31.8 g/dL (33.0-37.0); Mean Corpuscular Hgb 28.9 pg (27.0-31.0); Platelet Count 209 10^3/uL (130-400); Red Blood Cell Count 2.66 10^6/uL (4.70-6.10); Red Cell Dist. Width 19.9 % (11.5-14.5); White Blood Cell Count 12.9 10^3/uL (4.8-10.8)
[2023-09-03 07:45] LABS: INR 2.54; PT 27.3 Sec (11.4-14.6)
[2023-09-03 08:09] LABS: Blood Urea Nitrogen 62 mg/dl (9-20); Calcium 7.9 mg/dl (8.4-10.2); Carbon Dioxide 21 mmol/L (22-30); Chloride 109 mmol/L (98-107); Estimated Creatinine Clearance 16 ml/min; Glucose 119 mg/dl (70-99); Magnesium 2.1 mg/dl (1.6-2.3); Potassium 3.9 mmol/L (3.5-5.1); Sodium 137 mmol/L (135-145); eGFR 16.71
[2023-09-03] MEDS: NITRO-DUR 0.599999999999999978 MG TRANSDERM (08:21)
[2023-09-03] MEDS: ULORIC 40 MG PO (08:21)
[2023-09-03] MEDS: PACERONE 200 MG PO (08:21)
[2023-09-03] MEDS: SODIUM BICARBONATE 1300 MG PO ×3 (08:21→21:24)
[2023-09-03] MEDS: MUCINEX 600 MG PO ×2 (08:22→20:26)
[2023-09-03] MEDS: NOVOLOG FLEXPEN-MODERATE RESISTANCE SC ×2 (08:22→16:57)
[2023-09-03] MEDS: FARXIGA 5 MG PO (08:22)
[2023-09-03] MEDS: NEURONTIN 100 MG PO ×2 (08:22→20:26)
[2023-09-03] MEDS: FIRVANQ 125 MG PO ×4 (08:22→21:24)
[2023-09-03] MEDS: ASPIR LOW (ENTERIC COATED) 81 MG PO (08:22)
[2023-09-03 08:23] LABS: Glucose - Point of Care 140 mg/dl (70-99)
--- NOTE | 2023-09-03 08:58 | W.PN.CARDCBS ---
Today's Communication / Plan
-
His symptoms are from a combination of factors including known significant coronary artery disease including significant LAD disease, anemia which was slowly worsening, and some chronic heart failure with preserved ejection fraction and symptoms
have improved
H/H improved after 2 unit PRBCs. Cont to monitor H/H. He feels improved after transfusion. Hb slightly lower last 24 hr cont to monitor.
Remains in sinus rhythm. Monitor INR. Coumadin held with elevated INR 3.9 at admit and has been resumed and INR stable.
Cont medical therapy for minimal trop with peak 0.3. He feels improved with blood products. Echo 09/01 noted with EF 45-50% by Simpsons, cont medical therapy for now for hx LAD disease, as symptomatically improved after transfusion, and cr worsening
and EF just minimal borderline change. and
EKG RBBB no change from prior Jun 2023
Continue metoprolol, Crestor, amlodipine, and amiodarone. Continue Farxiga.
He appears euvolemic. Cont to hold lasix with rising cr. Nephro input noted.
His wt is 150 which is less than Jun 2023 wt.
Impression / Plan
-
.
Outpatient Personal Security Specialist: BRIGITTE Snow
Impression:
s/p chest pains and shortness of breath
Chronic heart failure with preserved ejection fraction
Recent multiple hospitalizations including proctitis and pneumonia in June 2023
Recent prolonged admission following outpatient cardiac catheterization 05/10 - 05/21/2023
Coronary artery disease status post prior ostial LAD PCI in 2016 with recent cardiac catheterization noting diffusely positive IFR of the LAD back to the left main
Prior ischemic cardiomyopathy with LVEF of 25 to 30%, most recently recovered to 50-55% on echo
History of NSVT last admission
Acute on CKD stage IIIb/marked proteinuria
CLL/MGUS/Chronic anemia�management per Dr. 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 Aranesp initiated 05/09/23 every 3 weeks.
Paroxysmal atrial fibrillation, on chronic anticoagulation with Coumadin [history of hemoptysis and hematuria on Xarelto in 2017. Looked into Eliquis 2.5 mg twice daily last admission but he is newly elected health plan with Rx coverage will not
kick in until June 2023]
COPD, not on home oxygen
C diff diarrhea
Hypertension
Hyperlipidemia
Type 2 diabetes mellitus
Mild cognitive decline / Frailty
Obstructive sleep apnea
Gout hx
IgG deficiency hx
Prior hematuria in 2016/history of BPH
Pharmacologic nuclear stress test�on January 2023 showed abnormal perfusion imaging with small, mild apical inferior and apical lateral defect suggestive of mild ischemia.� No evidence of scar.� Systolic function was mildly reduced at 42% on stress
test.� Compared to prior study from 2020, apical lateral and apical inferior defects were present then but also inferior, mid inferior and inferolateral segments.� LVEF prior was 40%.
Echocardiogram�from January 22, 2023 showed top normal LV size with low normal or mildly globally reduced systolic function, LVEF of 50 to 55%, thickened mitral valve leaflets with MAC and mild MR, aortic sclerosis with mild AI, normal right heart
with normal PA systolic pressure, dilated aorta with maximum diameter of 4.4 cm.
Left heart catheterization�from July 28, 2015: Mild tapering of distal left main.� Complex high-grade stenosis from proximal to mid LAD involving the origin of a very large diagonal branch.� The mid LAD beyond the diagonal has a 60% stenosis and
60% distal stenosis.� Nonobstructive disease in the other arteries.� LV gram suggested an LVEF of 25 to 30%.� On August 01, 2015 he underwent a 3.0 x 28 mm Alpine Xience 5 drug-eluting stent to the ostial LAD
Left heart catheterization from May 10, 2023: LVEDP 14. Left main large vessel which gives rise to LAD and circumflex. 20% distal left main stenosis. Diffuse atherosclerotic in-stent restenosis up to 50% spanning ostial to mid LAD involving
origin of a very large diagonal branch. Mid LAD beyond diagonal branch has 50 to 60% stenosis and a focal 56% distal stenosis. iFR is grossly positive at 0.7 in the mid to distal LAD. 50 to 60% ostial diagonal stenosis. Circumflex is large with
bifurcating OM1 with 30 to 40% stenosis and diffuse atherosclerotic plaque. RCA is large dominant vessel moderately calcified with a high anterior origin from the aorta. Diffuse atherosclerotic plaque. Following this procedure patient was seen by
CT surgery and was deemed too high risk. Decision was made for medical therapy; could consider high risk PCI if fails medical therapy
Echo 09/02/23: EF 45-50% with mild global hypokinesis and more notable mid to apical anterolateral. EF 50-55% visual by echo Jun 2023.
Plan:
He presented with chest pains and shortness of breath and a troponin of 0.3. He also has CKD 4 with anemia and hemoglobin of 6.9. He has been getting intermittent transfusions from hematology.
His symptoms are from a combination of factors including known significant coronary artery disease including significant LAD disease, anemia which was slowly worsening, and some chronic heart failure with preserved ejection fraction and symptoms
have improved
H/H improved after 2 unit PRBCs. Cont to monitor H/H. He feels improved after transfusion. Hb slightly lower last 24 hr cont to monitor.
Remains in sinus rhythm. Monitor INR. Coumadin held with elevated INR 3.9 at admit and has been resumed and INR stable.
Cont medical therapy for minimal trop with peak 0.3. He feels improved with blood products. Echo 09/01 noted with EF 45-50% by Simpsons, cont medical therapy for now for hx LAD disease, as symptomatically improved after transfusion, and cr worsening
and EF just minimal borderline change. and
EKG RBBB no change from prior Jun 2023
Continue metoprolol, Crestor, amlodipine, and amiodarone. Continue Farxiga.
He appears euvolemic. Cont to hold lasix with rising cr. Nephro input noted.
His wt is 150 which is less than Jun 2023 wt.
Progress Note - Personal Security Specialist
Subjective
Date of Service: September 03, 2023
Pt seen and examined. No cp or dyspnea.
Objective
Labs:
09/03/23 07:13
09/03/23 07:13
Labs
Hgb 7.7 g/dL (13.0-18.0) L 09/03/23 07:13
Hct 24.2 % (39.0-52.0) L 09/03/23 07:13
Plt Count 209 10^3/uL (130-400) 09/03/23 07:13
PT 27.3 Sec (11.4-14.6) H 09/03/23 07:13
INR 2.54 09/03/23 07:13
Sodium 137 mmol/L (135-145) 09/03/23 07:13
Potassium 3.9 mmol/L (3.5-5.1) 09/03/23 07:13
BUN 62 mg/dl (9-20) H 09/03/23 07:13
Creatinine 3.5 mg/dL (0.7-1.3) H 09/03/23 07:13
Glucose 119 mg/dl (70-99) H 09/03/23 07:13
Troponins
09/01/23 09/01/23 09/01/23
04:13 07:11 14:33
Troponin I 0.194 H* 0.301 H* D 0.218 H* D
09/01/23
20:30
Troponin I Cancelled
Vital Signs and I&O:
Vital Signs
Temp Pulse Resp BP Pulse Ox
97.2 F 71 16 114/59 95
09/03/23 07:41 09/03/23 08:21 09/03/23 07:41 09/03/23 08:21 09/03/23 07:41
Vital Signs
Temp Pulse Resp BP Pulse Ox
97.2 F 71 16 114/59 95
09/03/23 07:41 09/03/23 08:21 09/03/23 07:41 09/03/23 08:21 09/03/23 07:41
Intake & Output
09/01/23 09/02/23 09/03/23 09/04/23
06:59 06:59 06:59 06:59
Intake Total 720 / 720 1320 / 1320
Output Total 150 / 150 100 / 100
Balance 570 / 570 1220 / 1220
Physical Exam
Physical Exam
General: No acute distress, AAOX3
Neck: Negative JVD
Heart: Regular, Negative S3 positive S1/S2, Negative S4, No murmur
Lungs: CTA b/l, negative wheezes/rales/rhonchi
Abd: Positive BS, NT/ND, neg rebound/rigidity/guarding
Ext: Negative cyanosis/clubbing/edema
Neuro: nonfocal
[2023-09-03 12:11] LABS: Glucose - Point of Care 183 mg/dl (70-99)
[2023-09-03] MEDS: NOVOLOG FLEXPEN-MODERATE RESISTANCE 1 UNITS SC (12:40)
--- NOTE | 2023-09-03 15:13 | W.PN.NEPH.PH ---
Today's Communication / Plan
-
see plan
Assessment/Plan
-
Assessment:
CKD 4
Metabolic acidosis
CLL
Acute anemia
Ischemic cardiomyopathy
Elevated troponin
pAfib (on AC)
BPH
COPD
Plan:
-GER-cr up at 3.5, last dose lasix 08/31
hold Farxiga too, check U lytes
bladder scan 133cc
hematology follows for myelofibrosis, monitor hb
BP are soft on low dose bb, check orthostatic vitals , prn IVF
cont po bicarb for met acidosis
labs in am
-
-
Date of Service: September 03, 2023
CC / HPI / ROS
-
Chief Complaint:
GER with CKD
History of Present Illness:
cr up at 3.5
hb low at 7.7 post 2 units PRBC this admit
BP soft
Review of Systems:
no cp or sob at rest
no dysuria
Labs
-
Labs:
WBC 12.9 10^3/uL (4.8-10.8) H 09/03/23 07:13
RBC 2.66 10^6/uL (4.70-6.10) L 09/03/23 07:13
Hgb 7.7 g/dL (13.0-18.0) L 09/03/23 07:13
Hct 24.2 % (39.0-52.0) L 09/03/23 07:13
Plt Count 209 10^3/uL (130-400) 09/03/23 07:13
Sodium 137 mmol/L (135-145) 09/03/23 07:13
Potassium 3.9 mmol/L (3.5-5.1) 09/03/23 07:13
Chloride 109 mmol/L (98-107) H 09/03/23 07:13
Carbon Dioxide 21 mmol/L (22-30) L 09/03/23 07:13
BUN 62 mg/dl (9-20) H 09/03/23 07:13
Creatinine 3.5 mg/dL (0.7-1.3) H 09/03/23 07:13
eGFR 16.71 09/03/23 07:13
Glucose 119 mg/dl (70-99) H 09/03/23 07:13
Calcium 7.9 mg/dl (8.4-10.2) L 09/03/23 07:13
Eam-D-Qvipymxpchl Pept 6950 pg/ml 09/01/23 04:13
Albumin 3.0 g/dl (3.5-5.0) L 09/01/23 04:13
Physical Exam
-
Vital Signs:
Vital Signs
Temp Pulse Resp BP Pulse Ox
97.2 F 76 16 99/55 97
09/03/23 11:16 09/03/23 11:16 09/03/23 07:41 09/03/23 11:16 09/03/23 11:16
Cardiovascular:: Regular rate and rhythm
Respiratory:: Bilateral: CTA
Lung Excursion:: Normal
Abdomen:: Nontender and Soft
Extremity Edema:: None: Bilateral:
Crespo Catheter: No
--- NOTE | 2023-09-03 15:41 | CM ---
Alert awake oriented patient who lives with his Sharon in a2 story home with 2 steps to enter.and bed bath room on first floor.He is independent in driving and all activities of daily living.Offered VN she declined. No adaptive devices
[facility] hx/[facility] hx
Pharmacy [facility]
PCP Dr Santos
PLAN Home no needs
[2023-09-03 16:49] LABS: Glucose - Point of Care 126 mg/dl (70-99)
[2023-09-03] MEDS: FEOSOL 325 MG PO (16:56)
[2023-09-03] MEDS: PROSCAR 5 MG PO (16:59)
[2023-09-03] MEDS: COUMADIN 0.5 MG PO (16:59)
[2023-09-03] MEDS: COUMADIN 3 MG PO (16:59)
[2023-09-03] MEDS: NON-FORMULARY ITEM 200 MG PO (16:59)
[2023-09-03 17:27] LABS: Urine Sodium 44 mmol/L (30-90)
[2023-09-03] MEDS: TOPROL XL 12.5 MG PO (21:24)
[2023-09-03] MEDS: CRESTOR 5 MG PO (21:24)
[2023-09-03 22:04] LABS: Glucose - Point of Care 136 mg/dl (70-99)
[2023-09-04] VITALS (8 sets, daily range): BP systolic 101–154; BP diastolic 48–67; BMI 22.1
[2023-09-04] MEDS: TYLENOL 1000 MG PO ×2 (00:54→16:05)
[2023-09-04 05:35] LABS: Hematocrit 22.9 % (39.0-52.0); Hemoglobin 7.3 g/dL (13.0-18.0); Mean Corp Hgb Conc. 31.9 g/dL (33.0-37.0); Mean Corpuscular Hgb 28.6 pg (27.0-31.0); Mean Corpuscular Volume 89.8 fL (80.0-94.0); Mean Platelet Volume 9.9 fL (7.4-10.4); Platelet Count 200 10^3/uL (130-400); Red Blood Cell Count 2.55 10^6/uL (4.70-6.10); Red Cell Dist. Width 19.5 % (11.5-14.5)
[2023-09-04 05:45] LABS: INR 2.22; PT 24.5 Sec (11.4-14.6)
[2023-09-04 06:13] LABS: Blood Urea Nitrogen 62 mg/dl (9-20); Calcium 7.9 mg/dl (8.4-10.2); Carbon Dioxide 22 mmol/L (22-30); Chloride 108 mmol/L (98-107); Estimated Creatinine Clearance 17 ml/min; Glucose 108 mg/dl (70-99); Magnesium 2.1 mg/dl (1.6-2.3); Potassium 4.1 mmol/L (3.5-5.1); Sodium 135 mmol/L (135-145); eGFR 17.93
--- NOTE | 2023-09-04 07:16 | W.PN.ONC2 ---
Today's Communication / Plan
-
Transfuse then D/C home.
Impression
Impression
Myelofibrosis w anemia
Hx CLL, currently ROD
Hx fludarabine for CLL -> needs irradiated blood products
CHF exacerbation
Plan
Plan
s/p 2U PRBC's. Will give another 1 unit for HgB 7.3 this AM
Median time to response to Ojjaara is 5 months. Anticipate he will continue to require transfusions for some time. Continues on outpt Aranesp.
Okay for D/C home post transfusion.
Subjective/Objective
Chief Complaint
ACS Heme Onc
Subjective
No complaints. Has been on momelotinib (Ojjaara) for myelofibrosis x 4 days
Vital Signs:
Vital Signs
Temp Pulse Resp BP Pulse Ox
98.6 F 90 18 123/63 94
09/03/23 23:35 09/03/23 23:35 09/03/23 23:35 09/03/23 23:35 09/03/23 23:35
Lab Results:
Laboratory Data
WBC 10.0 10^3/uL (4.8-10.8) 09/04/23 05:27
Hgb 7.3 g/dL (13.0-18.0) L 09/04/23 05:27
Plt Count 200 10^3/uL (130-400) 09/04/23 05:27
PT 24.5 Sec (11.4-14.6) H 09/04/23 05:27
INR 2.22 09/04/23 05:27
eGFR 17.93 09/04/23 05:27
Physical Exam
HEENT: No Jaundice
Cardiology: S1 and S2
Pulmonary: Clear
GI: Soft
Extremities: No C/C/E
Orders
Orders
Orders From Last 24 Hours
09/04/23 07:15
Blood Bank Products [* Blood Bank Products] Routine
[2023-09-04 08:09] LABS: Glucose - Point of Care 119 mg/dl (70-99)
--- NOTE | 2023-09-04 08:34 | W.PN.HOSP.TC ---
Addendum entered and electronically signed by Trisha Salazar MD 09/04/23 15:41:
New onset chest pain left sided constant pleuritic
continues to saturate well on room air non-labored respiration.
Breath sounds possibly decreased on left side compared to right on auscultation
Patient otherwise appears relatively comfortable no acute distress VSS
EKG notes no acute changes from prior
-holding discharge for now
-checking Troponin and CXR
-prn Tylenol
-will cont to monitor
Original Note:
Today's Communication/Plan
-
discharge
Assessment / Plan
Assessment / Plan
HPI: 83-year-old male with a past medical history of atrial fibrillation on coumadin, myelofibrosis, COPD, hypertension, hyperlipidemia, type 2 diabetes, chronic kidney disease, cognitive decline, and CKD presents with shortness of breath that
occurred since yesterday. He also had some chest pain last night, lasting for about 1 hour, and relieved with nitroglycerin. Patient states that he has been having worsening dyspnea with activity for the past few weeks, worse last night.
Currently his chest pain-free. Associated symptoms include orthopnea. No fever, no chills. No nausea, no vomiting. His hemoglobin was found to be 6.7 in the ER, he is currently receiving 1 unit of blood. He denies black or bloody stools.
#Acute hypoxic respiratory failure
#Acute heart failure with a preserved ejection fraction
#Pulmonary edema
Echo 07/01/2023 shows EF 50 to 55%, mitral valve leaflets
elevating Cr, hold IV lasix Farxiga
Nephro eval appreciated
Cardiology following, trend weights, trend creatinine
wean oxygen supplementation as tolerated
#Chest pain
Resolved, relieved with nitroglycerin
Troponins peaked at 0.301
Cardiology recommends medical management
#Acute kidney injury superimposed on stage 4 chronic kidney disease
Improving
Nephrology eval appreciated
#Paroxysmal atrial fibrillation on Coumadin
INR therapeutic, cont Coumadin, outpatient follow up with Cardiology for possible transition to Eliquis
Continue amiodarone and metoprolol for rate control
#Worsening anemia of chronic disease
Denies bleeding
Hemoglobin 8.0 s/p 1 unit on PRB on 08/31, increased from 6.7, repeat transfusion 09/03 1PRBC irradiated for Hgb 7.3 as per Oncology, ok to discharge after transfusion
Gets Aranesp outpt, oncology following
Median time to response to Ojjaara is 5 months. Anticipate he will continue to require transfusions for some time.
#JAK2+ myelofibrosis
#CLL
Oncology eval appreciated
#Non-anion gap metabolic acidosis
Secondary to renal disease & diarrhea,
resolved
sodium bicarb supplementation completed
#reported hx Type 2 diabetes
-A1c however consistently non-diabetic most recent A1c 5.5
-Farxiga for heart failure on hold d/t worsening kidney function
-FS consistently within goal, minimal insulin correction required
-ok to discontinue routine FS
#C. difficile diarrhea
Cont oral vancomycin day 2
Diarrhea since improved
DVT prophylaxis�Coumadin
Full code
PT/OT appreciated Home health however patient declines
Medically stable for discharge home with outpatient follow up recommendations
Total Time Preparing Discharge ___50____ minutes including examination of the patient, summary of the hospital stay, instructions for continuing care to all relevant caregivers; and preparation of discharge records, prescriptions, and referral
forms if necessary.
Physical Exam
General: Appears frail, chronically ill, no acute distress
HEENT: Normocephalic, Atraumatic, EOMI, MMM
Respiratory: Clear to Auscultation bilaterally
Cardiac: Bibasilar crackles
GI: Soft, Nontender, Nondistended, Normal Bowel Sounds
Extremities: No Clubbing, Cyanosis, or Edema
Neuro: Nonfocal/Grossly Intact
Psych: Calm, Cooperative
Derm: No Visible lesions
Anticipated Discharge: Today
Subjective/Interval History
-
Date of Service: September 04, 2023
Seen and examined at bedside in no acute distress sitting up comfortably in bed. Reports overall feeling well. Diarrhea since resolved. Denies new acute issues at this time.
Objective Data
-
Labs:
Laboratory Results
09/04/23
05:27
WBC 10.0
Hgb 7.3 L
Hct 22.9 L
Plt Count 200
PT 24.5 H
INR 2.22
Sodium 135
Potassium 4.1
Chloride 108 H
Carbon Dioxide 22
BUN 62 H
Creatinine 3.3 H
Glucose 108 H
Calcium 7.9 L
Vital Signs:
Vital Signs
Temp Pulse Resp BP Pulse Ox
98.6 F 90 18 123/63 94
09/03/23 23:35 09/03/23 23:35 09/03/23 23:35 09/03/23 23:35 09/03/23 23:35
I&O
09/03/23 09/04/23 09/05/23
06:59 06:59 06:59
Intake Total 1320 / 1320 1240 / 1240
Output Total 100 / 100 600 / 600
Balance 1220 / 1220 640 / 640
[2023-09-04] MEDS: NITRO-DUR 0.599999999999999978 MG TRANSDERM (09:07)
[2023-09-04] MEDS: FIRVANQ 125 MG PO ×4 (09:08→21:08)
[2023-09-04] MEDS: PACERONE 200 MG PO (09:09)
[2023-09-04] MEDS: SODIUM BICARBONATE 1300 MG PO ×3 (09:09→21:07)
[2023-09-04] MEDS: ASPIR LOW (ENTERIC COATED) 81 MG PO (09:09)
[2023-09-04] MEDS: MUCINEX 600 MG PO ×2 (09:09→20:41)
[2023-09-04] MEDS: ULORIC 40 MG PO (09:10)
[2023-09-04] MEDS: NEURONTIN 100 MG PO ×2 (09:10→20:41)
--- NOTE | 2023-09-04 10:12 | W.PN.CARDCBS ---
Addendum entered and electronically signed by Sydney Tolentino PA-C 09/04/23 12:50:
CM priced eliquis - cost $0 to patient. his INRs have been labile as OP upon discussion with [facility] coumadin clinic. as for DC today, will discuss transition to eliquis 2.5mg BID as OP if patient agreeable.
Addendum entered and electronically signed by Chandrakant Mendez MD 09/04/23 10:54:
I saw and examined the patient.
The [employer] Gunner's note was reviewed and I agree with the note.
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
breath thought to be secondary to symptomatic anemia
Low-level troponin elevation is noted this is likely type II TN
Continue medical management of coronary disease with aspirin, high intensity statin, beta-royce, nitrate. Resume Norvasc as antianginal as blood pressure tolerates.
Will defer diuretic dosing to nephrology given GER on CKD
Stable cardiac status
Outpatient follow-up has been arranged
Original Note:
Today's Communication / Plan
-
for transfusion today, then DC
continue asa, coumadin at present. attempt goal INR of 2-2.5. consider OP transition to eliquis 2.5mg BID
continue toprol, nitrodur, crestor. med mgmt of known LAD lesion. resume OP norvasc as able
defer diuretics to nephro, was not on lasix prior to admission
will need OP follow up of Cr
will arrange OP cardiac follow up
Impression / Plan
-
.
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
Impression:
s/p chest pains and shortness of breath
Chronic heart failure with preserved ejection fraction
Recent multiple hospitalizations including proctitis and pneumonia in June 2023
Recent prolonged admission following outpatient cardiac catheterization 05/10 - 05/21/2023
Coronary artery disease status post prior ostial LAD PCI in 2016 with recent cardiac catheterization noting diffusely positive IFR of the LAD back to the left main
Prior ischemic cardiomyopathy with LVEF of 25 to 30%, most recently recovered to 50-55% on echo
History of NSVT last admission
Acute on CKD stage IIIb/marked proteinuria
CLL/MGUS/Chronic anemia�management per Dr. 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 Aranesp initiated 05/09/23 every 3 weeks.
Paroxysmal atrial fibrillation, on chronic anticoagulation with Coumadin [history of hemoptysis and hematuria on Xarelto in 2017. Looked into Eliquis 2.5 mg twice daily last admission but he is newly elected health plan with Rx coverage will not
kick in until June 2023]
COPD, not on home oxygen
C diff diarrhea
Hypertension
Hyperlipidemia
Type 2 diabetes mellitus
Mild cognitive decline / Frailty
Obstructive sleep apnea
Gout hx
IgG deficiency hx
Prior hematuria in 2016/history of BPH
Pharmacologic nuclear stress test�on January 2023 showed abnormal perfusion imaging with small, mild apical inferior and apical lateral defect suggestive of mild ischemia.� No evidence of scar.� Systolic function was mildly reduced at 42% on stress
test.� Compared to prior study from 2020, apical lateral and apical inferior defects were present then but also inferior, mid inferior and inferolateral segments.� LVEF prior was 40%.
Echocardiogram�from January 22, 2023 showed top normal LV size with low normal or mildly globally reduced systolic function, LVEF of 50 to 55%, thickened mitral valve leaflets with MAC and mild MR, aortic sclerosis with mild AI, normal right heart
with normal PA systolic pressure, dilated aorta with maximum diameter of 4.4 cm.
Left heart catheterization�from July 28, 2015: Mild tapering of distal left main.� Complex high-grade stenosis from proximal to mid LAD involving the origin of a very large diagonal branch.� The mid LAD beyond the diagonal has a 60% stenosis and
60% distal stenosis.� Nonobstructive disease in the other arteries.� LV gram suggested an LVEF of 25 to 30%.� On August 01, 2015 he underwent a 3.0 x 28 mm Alpine Xience 5 drug-eluting stent to the ostial LAD
Left heart catheterization from May 10, 2023: LVEDP 14. Left main large vessel which gives rise to LAD and circumflex. 20% distal left main stenosis. Diffuse atherosclerotic in-stent restenosis up to 50% spanning ostial to mid LAD involving
origin of a very large diagonal branch. Mid LAD beyond diagonal branch has 50 to 60% stenosis and a focal 56% distal stenosis. iFR is grossly positive at 0.7 in the mid to distal LAD. 50 to 60% ostial diagonal stenosis. Circumflex is large with
bifurcating OM1 with 30 to 40% stenosis and diffuse atherosclerotic plaque. RCA is large dominant vessel moderately calcified with a high anterior origin from the aorta. Diffuse atherosclerotic plaque. Following this procedure patient was seen by
CT surgery and was deemed too high risk. Decision was made for medical therapy; could consider high risk PCI if fails medical therapy
Echo 09/02/23: EF 45-50% with mild global hypokinesis and more notable mid to apical anterolateral. EF 50-55% visual by echo Jun 2023.
Plan:
-He presented with chest pains and shortness of breath. He has anemia secondary to MGUS with hemoglobin of 6.9 on presentation. He has been getting intermittent transfusions from hematology.
-His symptoms of chest pain and shortness of breath were felt to be multifactorial secondary to known LAD disease, with no intervention options, medically managed as well as worsening of chronic anemia, and potential for component of acute diastolic
heart failure.
-Trop peaked at 0.3. His symptoms improved with transfusion. Hemoglobin 7.3 on 09/03. He is for additional transfusion today per hematology
-He is chronically on Coumadin for history of paroxysmal atrial fibrillation. INRs managed by [facility] coumadin clinic. INR was 5.4 on 08/28, 3.9 on 08/31. Goal INR 2-3, perhaps should try to keep INR between 2-2.5. He is also on aspirin with known LAD
disease. d/w hematology, given MGUS, would have anemia issues regardless of antiplatelet/anticoagulation regimen. no evidence of active bleeding at present. Previously we had looked into Eliquis 2.5 mg twice daily, however at that time he was newly
elected health plan with Rx coverage will not kick in until June 2023 - as now 2023, will discuss transition with coumadin clinic as OP
-He was diuresed with some improvement, however then developed GER with bump in creatinine to 3.5 as also with diarrhea/cdiff. Diuretics and OP farxiga remain on hold. He was not on Lasix prior to admission. Nephrology following. Creatinine down
slightly to 3.3.
-echo with EF 45-50% by simpsons, however visually stable at 50-55% so not felt to be significant change
-Continue toprol, amiodarone, nitro-dur. his OP amlodipine is not presently being given.
-continue crestor
-planned for DC to home post transfusion today
-will arrange OP cardiac follow up
-d/w nursing
Progress Note - Swing Ride Operator
Subjective
Date of Service: September 04, 2023
reports breathing and diarrhea improved
Objective
Labs:
09/04/23 05:27
09/04/23 05:27
Labs
Hgb 7.3 g/dL (13.0-18.0) L 09/04/23 05:27
Hct 22.9 % (39.0-52.0) L 09/04/23 05:27
Plt Count 200 10^3/uL (130-400) 09/04/23 05:27
PT 24.5 Sec (11.4-14.6) H 09/04/23 05:27
INR 2.22 09/04/23 05:27
Sodium 135 mmol/L (135-145) 09/04/23 05:27
Potassium 4.1 mmol/L (3.5-5.1) 09/04/23 05:27
BUN 62 mg/dl (9-20) H 09/04/23 05:27
Creatinine 3.3 mg/dL (0.7-1.3) H 09/04/23 05:27
Glucose 108 mg/dl (70-99) H 09/04/23 05:27
Troponins
09/01/23 09/01/23
14:33 20:30
Troponin I 0.218 H* D Cancelled
Vital Signs and I&O:
Vital Signs
Temp Pulse Resp BP Pulse Ox
97.8 F 90 18 123/63 2
09/04/23 07:00 09/04/23 09:09 09/04/23 07:00 09/04/23 09:09 09/04/23 07:00
Vital Signs
Temp Pulse Resp BP Pulse Ox
97.8 F 90 18 123/63 2
09/04/23 07:00 09/04/23 09:09 09/04/23 07:00 09/04/23 09:09 09/04/23 07:00
Intake & Output
09/02/23 09/03/23 09/04/23 09/05/23
07:59 07:59 07:59 07:59
Intake Total 720 / 720 1320 / 1320 1240 / 1240
Output Total 150 / 150 100 / 100 600 / 600
Balance 570 / 570 1220 / 1220 640 / 640
Physical Exam
Physical Exam
GEN: No distress, awake, alert, oriented x3. appears frail
HEENT: supple, anicteric, mmm, eomi
LUNGS: no audible wheezes
NEURO: Gross non-focal
SKIN: Warm, pink, dry. No rash
[2023-09-04 11:31] LABS: Glucose - Point of Care 198 mg/dl (70-99)
--- NOTE | 2023-09-04 11:39 | PTCARENOTE ---
pt began blood transfusion LP-2 CMV IRR O POS at 11;07. Product cannot be fully scanned, [place] documentation sent up by lab to record vitals and administering nurse with co-signer
--- NOTE | 2023-09-04 12:41 | CM ---
Case management consulted for cost check on medication Eliquis 2.5mg BID
Called [facility], spoke with Armida
Cost for 30 day supply = $0 co-pay
Devante Tolentino PA-C made aware
--- NOTE | 2023-09-04 15:11 | CM ---
CM following for d/c planning
Pt for d/c today
PT recs HH - declined
Reports has ride home with his son
Discussed IMM. Given copy - pt refused to sign
Plan - home no needs
--- NOTE | 2023-09-04 15:14 | W.DCSUMMARY ---
Discharge Summary
Discharge Data
Date of Admission: 09/01/23
Date of Discharge: 09/04/23
-
Pending Results: Yes
Additional Pending Results:
official stool culture results
Discharge Plan
-
Patient Disposition: Home (Routine Discharge)
Discharge Diagnosis/Procedures: Acute Hypoxic Respiratory Failure due to Acute on Chronic Heart Failure with Preserved Ejection Fraction, Acute Kidney Injury on Chronic Kidney disease stage IV, paroxysmal atrial fibrillation, Anemia of Chronic
Disease, Myelofibrosis, Clostridium difficile diarrhea
Condition: Fair
Diet: Low Cholesterol, 2 Gram Sodium and Restrict fluids to 48 oz
Activity: As tolerated
Driving Restrictions: Not until seen by your Dr
Bathing Restrictions: None
Blood Work: Please repeat CBC and BMP in 2-3 days of discharge, results to be forwarded to your primary care provider, litigation partner, layout worker and barge engineer. Script has been provided to facilitate
Activity Restrictions/Additional Instructions:
Please follow up with your primary care provider in 1 week of discharge, keep your appointment with cardiology, and follow up with Hematology and Nephrology in 2 weeks of discharge.
8 days of oral Vancomycin has been prescribed for CDiff infection.
Farxiga has been discontinued due to renal insufficiency. Please follow up with primary care provider and/or other healthcare provider involved in your care before considering to resume.
Please take medications as prescribed/recommended and follow up with your primary care provider and/or other healthcare provider involved in your care for further adjustment to your medication regimen as necessary.
Instructions: Clostridioides difficile (DC), *[facility] Heart Failure Instructions
Referrals:
Rob Santos MD [Family Provider] - in one week
Onur Snow MD [Active] - 09/10/23 10:20 am (You have an appointment at the [facility] in [facility]. Please call with questions. )
Prescriptions:
New
vancomycin 125 mg capsule
125 mg PO QID 8 Days Qty: 32 0RF
Continued
ipratropium-albuterol 3 ML solution for nebulization
3 ml inhalation R BIDPRN PRN (Reason: Lung/Breathing Issues)
acetaminophen [Tylenol Extra Strength] 500 MG tablet
1,000 mg PO Q6HPRN PRN (Reason: mild pain)
rosuvastatin 5 MG tablet
5 mg PO HS
nitroglycerin [Nitro-Dur] 0.6 mg/hr Patch 24 Hour
1 patch TRANSDERMAL DAILY Qty: 0
ferrous sulfate 325 mg (65 mg iron) Tablet
325 mg PO Q48H@1700 Qty: 0
gabapentin 100 mg Capsule
100 mg PO BID
finasteride 5 mg Tablet
5 mg PO QPM
febuxostat 40 mg Tablet
40 mg PO DAILY
Hold Instructions: Until renal function improve
budesonide [Pulmicort] 0.5 mg/2 mL Suspension For Nebulization
0.5 mg INHALATION R DAILYPRN PRN (Reason: sob)
amiodarone 200 mg tablet
200 mg PO DAILY Qty: 30 0RF
nitroglycerin 0.3 mg tablet, sublingual
0.3 mg sublingual [id number] PRN (Reason: chest pain)
aspirin 81 mg Tablet,Delayed Release (Dr/Ec)
81 mg PO DAILY
metoprolol succinate 25 mg tablet extended release 24 hr
12.5 mg PO HS
Hold Instructions: until Bp>140/90
colchicine 0.6 mg Tablet
0.6 mg PO DAILYPRN PRN (Reason: gout)
guaifenesin 600 mg Tablet Extended Release 12hr
600 mg PO DAILY
Ojjaara 200 mg Tablet
200 mg PO QPM
warfarin 3 mg tablet
3.5 mg PO QPM
Rx Instructions:
Taking a 2.5mg and 1mg tablet at home
Discontinued
dapagliflozin propanediol [Farxiga] 5 mg tablet
5 mg PO DAILY
amlodipine [Norvasc] 10 mg Tablet
10 mg PO DAILY
Discharge Orders:
Discharge Patient (As Directed); Ordered 09/04/23
Ordered By: Trisha Salazar
Discharge Date and Time
Print Language: FRENCH
--- NOTE | 2023-09-04 16:09 | W.PN.NEPH.PH ---
Today's Communication / Plan
-
Discharge held due to chest pain
Follow-up BMP in a.m.
Assessment/Plan
-
Assessment:
CKD 4
Metabolic acidosis
CLL
Acute anemia
Ischemic cardiomyopathy
Elevated troponin
pAfib (on AC)
BPH
COPD
Plan:
-GER-cr down to 3.3, last dose lasix 08/31
holding Farxiga
non oliguric `600cc
bladder scan 133cc
hematology follows for myelofibrosis, monitor hgb which continues to fall
chest pain today
BP are soft on low dose bb, check orthostatic vitals , prn IVF
continue po bicarb for met acidosis
labs in am
-
-
Date of Service: September 04, 2023
CC / HPI / ROS
-
Chief Complaint:
GER with CKD
History of Present Illness:
cr down to 3.3
hgb low at 7.1 post 2 units PRBC this admit
repeat blood transfusion today
BP soft
Review of Systems:
Chest pain today after blood transfusion
no dysuria
Labs
-
Labs:
WBC 10.0 10^3/uL (4.8-10.8) 09/04/23 05:27
RBC 2.55 10^6/uL (4.70-6.10) L 09/04/23 05:27
Hgb 7.3 g/dL (13.0-18.0) L 09/04/23 05:27
Hct 22.9 % (39.0-52.0) L 09/04/23 05:27
Plt Count 200 10^3/uL (130-400) 09/04/23 05:27
Sodium 135 mmol/L (135-145) 09/04/23 05:27
Potassium 4.1 mmol/L (3.5-5.1) 09/04/23 05:27
Chloride 108 mmol/L (98-107) H 09/04/23 05:27
Carbon Dioxide 22 mmol/L (22-30) 09/04/23 05:27
BUN 62 mg/dl (9-20) H 09/04/23 05:27
Creatinine 3.3 mg/dL (0.7-1.3) H 09/04/23 05:27
eGFR 17.93 09/04/23 05:27
Glucose 108 mg/dl (70-99) H 09/04/23 05:27
Calcium 7.9 mg/dl (8.4-10.2) L 09/04/23 05:27
Yps-W-Ehxtcffuwsn Pept 6950 pg/ml 09/01/23 04:13
Albumin 3.0 g/dl (3.5-5.0) L 09/01/23 04:13
Physical Exam
-
Vital Signs:
Vital Signs
Temp Pulse Resp BP Pulse Ox
98.1 F 68 16 131/48 94
09/04/23 11:22 09/04/23 11:22 09/04/23 11:22 09/04/23 11:22 09/04/23 11:22
Cardiovascular:: Regular rate and rhythm
Respiratory:: Bilateral: Coarse
Lung Excursion:: Normal
Abdomen:: Nontender and Soft
Bowel Sounds:: Normal
Crespo Catheter: No
[2023-09-04 16:27] LABS: Troponin I < 0.012 ng/ml
[2023-09-04 17:10] LABS: Glucose - Point of Care 127 mg/dl (70-99)
[2023-09-04] MEDS: COUMADIN 0.5 MG PO (18:06)
[2023-09-04] MEDS: NON-FORMULARY ITEM 200 MG PO (18:07)
[2023-09-04] MEDS: PROSCAR 5 MG PO (18:07)
[2023-09-04] MEDS: COUMADIN 3 MG PO (18:07)
[2023-09-04] MEDS: CRESTOR 5 MG PO (21:08)
[2023-09-04] MEDS: TOPROL XL 12.5 MG PO (21:08)
[2023-09-05 05:44] LABS: Hematocrit 25.3 % (39.0-52.0); Hemoglobin 7.9 g/dL (13.0-18.0); Mean Corp Hgb Conc. 31.2 g/dL (33.0-37.0); Mean Corpuscular Hgb 28.7 pg (27.0-31.0); Mean Platelet Volume 10.3 fL (7.4-10.4); Platelet Count 193 10^3/uL (130-400); Red Blood Cell Count 2.75 10^6/uL (4.70-6.10); Red Cell Dist. Width 19.1 % (11.5-14.5)
[2023-09-05 06:00] VITALS: BMI 22.4
[2023-09-05 06:02] LABS: INR 2.26; PT 25.2 Sec (11.4-14.6)
[2023-09-05 06:31] LABS: Blood Urea Nitrogen 61 mg/dl (9-20); Calcium 7.8 mg/dl (8.4-10.2); Carbon Dioxide 25 mmol/L (22-30); Chloride 108 mmol/L (98-107); Estimated Creatinine Clearance 19 ml/min; Glucose 103 mg/dl (70-99); Potassium 4.5 mmol/L (3.5-5.1); Sodium 136 mmol/L (135-145); eGFR 20.11
[2023-09-05 07:00] VITALS: BP 137/57
--- NOTE | 2023-09-05 07:07 | W.PN.HOSP.TC ---
Today's Communication/Plan
-
discharge
Assessment / Plan
Assessment / Plan
HPI: 83-year-old male with a past medical history of atrial fibrillation on coumadin, myelofibrosis, COPD, hypertension, hyperlipidemia, type 2 diabetes, chronic kidney disease, cognitive decline, and CKD presents with shortness of breath that
occurred since yesterday. He also had some chest pain last night, lasting for about 1 hour, and relieved with nitroglycerin. Patient states that he has been having worsening dyspnea with activity for the past few weeks, worse last night.
Currently his chest pain-free. Associated symptoms include orthopnea. No fever, no chills. No nausea, no vomiting. His hemoglobin was found to be 6.7 in the ER, he is currently receiving 1 unit of blood. He denies black or bloody stools.
#Acute hypoxic respiratory failure
#Acute heart failure with a preserved ejection fraction
#Pulmonary edema
Echo 07/01/2023 shows EF 50 to 55%, mitral valve leaflets
elevating Cr, hold IV lasix Farxiga
Nephro eval appreciated
Cardiology following, trend weights, trend creatinine improving
wean oxygen supplementation as tolerated
#Chest pain
Resolved, relieved with nitroglycerin
Troponins peaked at 0.301
Cardiology recommends medical management
#Acute kidney injury superimposed on stage 4 chronic kidney disease
Improving
Nephrology eval appreciated
#Paroxysmal atrial fibrillation on Coumadin
INR therapeutic, cont Coumadin, outpatient follow up with Cardiology for possible transition to Eliquis
Continue amiodarone and metoprolol for rate control
#Worsening anemia of chronic disease
Denies bleeding
Hemoglobin 8.0 s/p 1 unit on PRB on 08/31, increased from 6.7, repeat transfusion 09/03 1PRBC irradiated for Hgb 7.3 as per Oncology, ok to discharge after transfusion
Gets Aranesp outpt, oncology following
Median time to response to Juanjosejjanineara is 5 months. Anticipate he will continue to require transfusions for some time.
#JAK2+ myelofibrosis
#CLL
Oncology eval appreciated
#Non-anion gap metabolic acidosis
Secondary to renal disease & diarrhea,
resolved
sodium bicarb supplementation completed on discharge
#reported hx Type 2 diabetes
-A1c however consistently non-diabetic most recent A1c 5.5
-Farxiga for heart failure on hold d/t worsening kidney function
-FS consistently within goal, minimal insulin correction required
-ok to discontinue routine FS
#C. difficile diarrhea
Cont oral vancomycin day 2
Diarrhea since improved
DVT prophylaxis�Coumadin
Full code
PT/OT appreciated Home health however patient declines
09/03 discharge held d/t episode chest pain following blood transfusion, VSS, described as pleuritic, non-labored respiration stable on room air, neg troponin, no acute EKG changes, CXR notes pulm edema improved from prior, no pneumothorax, also
notes possible pna but does not correlate clinically, no white count afebrile, chest pain since resolved with Tylenol
Medically stable for discharge home with outpatient follow up recommendations
Total Time Preparing Discharge ___50____ minutes including examination of the patient, summary of the hospital stay, instructions for continuing care to all relevant caregivers; and preparation of discharge records, prescriptions, and referral
forms if necessary.
Physical Exam
General: Appears frail, chronically ill, no acute distress
HEENT: Normocephalic, Atraumatic, EOMI, MMM
Respiratory: Clear to Auscultation bilaterally
Cardiac: Clear to auscultation bilateral
GI: Soft, Nontender, Nondistended, Normal Bowel Sounds
Extremities: No Clubbing, Cyanosis, or Edema
Neuro: Nonfocal/Grossly Intact
Psych: Calm, Cooperative
Derm: No Visible lesions
Anticipated Discharge: Today
Subjective/Interval History
-
Date of Service: September 05, 2023
Reports feeling well this morning. Chest pain free. Denies new acute issues at this time. Eager to go home.
Objective Data
-
Labs:
Laboratory Results
09/05/23
05:31
WBC 8.0
Hgb 7.9 L
Hct 25.3 L
Plt Count 193
PT 25.2 H
INR 2.26
Sodium 136
Potassium 4.5
Chloride 108 H
Carbon Dioxide 25
BUN 61 H
Creatinine 3.0 H
Glucose 103 H
Calcium 7.8 L
Vital Signs:
Vital Signs
Temp Pulse Resp BP Pulse Ox
98.9 F 65 20 115/51 92
09/04/23 23:22 09/04/23 23:22 09/04/23 23:22 09/04/23 23:22 09/04/23 23:22
I&O
09/04/23 09/05/23 09/06/23
06:59 06:59 06:59
Intake Total 1240 / 1240 960 / 960
Output Total 600 / 600 925 / 925
Balance 640 / 640 35 / 35
[2023-09-05 07:20] LABS: Glucose - Point of Care 130 mg/dl (70-99)
[2023-09-05] MEDS: FIRVANQ 125 MG PO (08:39)
[2023-09-05] MEDS: PACERONE 200 MG PO (08:39)
[2023-09-05] MEDS: MUCINEX 600 MG PO (08:39)
[2023-09-05] MEDS: ASPIR LOW (ENTERIC COATED) 81 MG PO (08:39)
[2023-09-05] MEDS: SODIUM BICARBONATE 1300 MG PO (08:39)
[2023-09-05] MEDS: ULORIC 40 MG PO (08:40)
[2023-09-05] MEDS: NITRO-DUR 0.599999999999999978 MG TRANSDERM (08:40)
[2023-09-05] MEDS: NEURONTIN 100 MG PO (08:40)
--- NOTE | 2023-09-05 10:10 | W.DCSUMMARY ---
Discharge Summary
Discharge Data
Date of Admission: 09/01/23
Date of Discharge: 09/05/23
-
Pending Results: No
Hospital Course
83M atrial fibrillation on coumadin, myelofibrosis, COPD, hypertension, hyperlipidemia, type 2 diabetes, chronic kidney disease, cognitive decline, and CKD presented with shortness of breath 1 day duration. He also had some chest pain night prior,
lasting for about 1 hour, and relieved with nitroglycerin. Patient reported that he has been having worsening dyspnea with activity for the past few weeks, worse night prior. Chest pain since resolved. Associated symptoms included orthopnea. No
fever, chills, nausea, vomiting. His hemoglobin was found to be 6.7 in the ER for which he received 1 unit of blood. Denied black or bloody stools. Acute hypoxic respiratory failure,
Acute heart failure with a preserved ejection fraction, Pulmonary edema, Echo 07/01/2023 showed EF 50 to 55%. Elevating Cr, IV lasix diuresis and Farxiga were placed on hold. Nephro and Cardiology evaluated during stay. Oxygen supplementation was
eventually weaned off during stay. Chest pain resolved, relieved with nitroglycerin. Troponin peaked at 0.301 since trended down, Cardiology recommended medical management. Worsening anemia of chronic disease, Hemoglobin 8.0 s/p 1 unit of PRBC on
08/31, increased from 6.7, repeated transfusion 09/03 1PRBC irradiated for Hgb 7.3, as per Oncology, ok to discharge after transfusion. Jaja rivaspt, oncology following, Median time to response to Natalie is 5 months. Anticipated he will
continue to require transfusions for some time. Patient was also diagnosed with C. difficile diarrhea for which he was treated with PO vancomycin resulting in subsequent resolution of diarrhea. Medically stable patient was discharged home with
outpatient follow up recommendations. Home services was offered, however patient declined.
Discharge Plan
-
Patient Disposition: Home (Routine Discharge)
Discharge Diagnosis/Procedures: Acute Hypoxic Respiratory Failure due to Acute on Chronic Heart Failure with Preserved Ejection Fraction, Acute Kidney Injury on Chronic Kidney disease stage IV, paroxysmal atrial fibrillation, Anemia of Chronic
Disease, Myelofibrosis, Clostridium difficile diarrhea
Condition: Fair
Diet: Low Cholesterol, 2 Gram Sodium and Restrict fluids to 48 oz
Activity: As tolerated
Driving Restrictions: Not until seen by your Dr
Bathing Restrictions: None
Blood Work: Please repeat CBC, INR, and BMP Saturday09/09/23, results to be forwarded to your primary care provider, kids activities coach, licensed surveyor and jack frame tender. Script has been provided to facilitate
Specialty Instructions: Weigh Daily- Call MD for wt gain/loss 3 lbs overnight/5 lbs in 1 week
Activity Restrictions/Additional Instructions:
Please follow up with your primary care provider in 1 week of discharge, keep your appointment with cardiology, and follow up with Hematology and Nephrology in 2 weeks of discharge.
8 days of oral Vancomycin has been prescribed for CDiff infection.
Farxiga has been discontinued due to renal insufficiency. Please follow up with primary care provider and/or other healthcare provider involved in your care before considering to resume.
Please take medications as prescribed/recommended and follow up with your primary care provider and/or other healthcare provider involved in your care for further adjustment to your medication regimen as necessary.
Instructions: Clostridioides difficile (DC), *[facility] Heart Failure Instructions
Referrals:
Rob Santos MD [Family Provider] - in one week
Onur Snow MD [Active] - 09/10/23 10:20 am (You have an appointment at the [facility] in [facility]. Please call with questions. )
Cris Najera MD [Active] - in two to four weeks
Eddie Alexis MD [Active] - in two to four weeks
Prescriptions:
New
vancomycin 125 mg capsule
125 mg PO QID 8 Days Qty: 32 0RF
amlodipine 10 mg Tablet
10 mg PO DAILY Qty: 1 0RF
warfarin [Jantoven] 3 mg Tablet
3 mg PO QPM Qty: 1 0RF
Continued
ipratropium-albuterol 3 ML solution for nebulization
3 ml inhalation R BIDPRN PRN (Reason: Lung/Breathing Issues)
acetaminophen [Tylenol Extra Strength] 500 MG tablet
1,000 mg PO Q6HPRN PRN (Reason: mild pain)
rosuvastatin 5 MG tablet
5 mg PO HS
nitroglycerin [Nitro-Dur] 0.6 mg/hr Patch 24 Hour
1 patch TRANSDERMAL DAILY Qty: 0
ferrous sulfate 325 mg (65 mg iron) Tablet
325 mg PO Q48H@1700 Qty: 0
gabapentin 100 mg Capsule
100 mg PO BID
finasteride 5 mg Tablet
5 mg PO QPM
febuxostat 40 mg Tablet
40 mg PO DAILY
Hold Instructions: Until renal function improve
budesonide [Pulmicort] 0.5 mg/2 mL Suspension For Nebulization
0.5 mg INHALATION R DAILYPRN PRN (Reason: sob)
amiodarone 200 mg tablet
200 mg PO DAILY Qty: 30 0RF
nitroglycerin 0.3 mg tablet, sublingual
0.3 mg sublingual [id number] PRN (Reason: chest pain)
aspirin 81 mg Tablet,Delayed Release (Dr/Ec)
81 mg PO DAILY
metoprolol succinate 25 mg tablet extended release 24 hr
12.5 mg PO HS
Hold Instructions: until Bp>140/90
colchicine 0.6 mg Tablet
0.6 mg PO DAILYPRN PRN (Reason: gout)
guaifenesin 600 mg Tablet Extended Release 12hr
600 mg PO DAILY
Ojjaara 200 mg Tablet
200 mg PO QPM
Discontinued
dapagliflozin propanediol [Farxiga] 5 mg tablet
5 mg PO DAILY
warfarin 3 mg tablet
3.5 mg PO QPM
Rx Instructions:
Taking a 2.5mg and 1mg tablet at home
amlodipine [Norvasc] 10 mg Tablet
10 mg PO DAILY
Discharge Orders:
Discharge Patient (As Directed); Ordered 09/05/23
Ordered By: Trisha Salazar
Discharge Date and Time
Discharge Date/Time: 09/05/23 14:19
Print Language: KOREAN
[2023-09-05 10:39] VITALS: BP 142/64
[2023-09-05] MEDS: NORVASC 10 MG PO (10:52)
--- NOTE | 2023-09-05 10:54 | W.PN.CARDCBS ---
Addendum entered and electronically signed by Chandrakant Mendez MD 09/05/23 13:27:
I saw and examined the patient.
The Solar Sales Representative And Assessor's note was reviewed and I agree with the note.
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
Presented with chest discomfort and shortness of breath which improved with blood transfusion most consistent with symptomatic anemia
He did have an episode of chest discomfort yesterday afternoon however ECG was nonischemic and troponin was not elevated and less likely to be cardiac chest pain by his description
Add back Norvasc as antianginal
Appreciate nephrology input regarding diuresis
We have arranged outpatient follow-up, stable cardiac status for discharge
Original Note:
Today's Communication / Plan
-
OP norvasc resumed given episode of CP
defer further diuretics to nephrology
OP farxiga stopped
coumadin dose reduced to 3mg QPM for DC given supratherapeutic INR on arrival
OP cardiac follow up arranged
BMP/INR early next week
consider transition to [facility] as OP if patient agreeable
Impression / Plan
-
.
Outpatient Toys Inspector: BRIGITTE Snow
Impression:
s/p chest pains and shortness of breath
Chronic heart failure with preserved ejection fraction
Recent multiple hospitalizations including proctitis and pneumonia in June 2023
Recent prolonged admission following outpatient cardiac catheterization 05/10 - 05/21/2023
Coronary artery disease status post prior ostial LAD PCI in 2016 with recent cardiac catheterization noting diffusely positive IFR of the LAD back to the left main
Prior ischemic cardiomyopathy with LVEF of 25 to 30%, most recently recovered to 50-55% on echo
History of NSVT last admission
Acute on CKD stage IIIb/marked proteinuria
CLL/MGUS/Chronic anemia�management per Dr. 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 Aranesp initiated 05/09/23 every 3 weeks.
Paroxysmal atrial fibrillation, on chronic anticoagulation with Coumadin [history of hemoptysis and hematuria on Xarelto in 2017. Looked into Eliquis 2.5 mg twice daily last admission but he is newly elected health plan with Rx coverage will not
kick in until June 2023]
COPD, not on home oxygen
C diff diarrhea
Hypertension
Hyperlipidemia
Type 2 diabetes mellitus
Mild cognitive decline / Frailty
Obstructive sleep apnea
Gout hx
IgG deficiency hx
Prior hematuria in 2016/history of BPH
Pharmacologic nuclear stress test�on January 2023 showed abnormal perfusion imaging with small, mild apical inferior and apical lateral defect suggestive of mild ischemia.� No evidence of scar.� Systolic function was mildly reduced at 42% on stress
test.� Compared to prior study from 2020, apical lateral and apical inferior defects were present then but also inferior, mid inferior and inferolateral segments.� LVEF prior was 40%.
Echocardiogram�from January 22, 2023 showed top normal LV size with low normal or mildly globally reduced systolic function, LVEF of 50 to 55%, thickened mitral valve leaflets with MAC and mild MR, aortic sclerosis with mild AI, normal right heart
with normal PA systolic pressure, dilated aorta with maximum diameter of 4.4 cm.
Left heart catheterization�from July 28, 2015: Mild tapering of distal left main.� Complex high-grade stenosis from proximal to mid LAD involving the origin of a very large diagonal branch.� The mid LAD beyond the diagonal has a 60% stenosis and
60% distal stenosis.� Nonobstructive disease in the other arteries.� LV gram suggested an LVEF of 25 to 30%.� On August 01, 2015 he underwent a 3.0 x 28 mm Alpine Xience 5 drug-eluting stent to the ostial LAD
Left heart catheterization from May 10, 2023: LVEDP 14. Left main large vessel which gives rise to LAD and circumflex. 20% distal left main stenosis. Diffuse atherosclerotic in-stent restenosis up to 50% spanning ostial to mid LAD involving
origin of a very large diagonal branch. Mid LAD beyond diagonal branch has 50 to 60% stenosis and a focal 56% distal stenosis. iFR is grossly positive at 0.7 in the mid to distal LAD. 50 to 60% ostial diagonal stenosis. Circumflex is large with
bifurcating OM1 with 30 to 40% stenosis and diffuse atherosclerotic plaque. RCA is large dominant vessel moderately calcified with a high anterior origin from the aorta. Diffuse atherosclerotic plaque. Following this procedure patient was seen by
CT surgery and was deemed too high risk. Decision was made for medical therapy; could consider high risk PCI if fails medical therapy
Echo 09/02/23: EF 45-50% with mild global hypokinesis and more notable mid to apical anterolateral. EF 50-55% visual by echo Jun 2023.
Plan:
-He presented with chest pains and shortness of breath. He has anemia secondary to MGUS with hemoglobin of 6.9 on presentation. He has been getting intermittent transfusions from hematology.
-His symptoms of chest pain and shortness of breath were felt to be multifactorial secondary to known LAD disease, with no intervention options, medically managed as well as worsening of chronic anemia, and component of acute diastolic heart failure.
-Trop peaked at 0.3. His symptoms improved with transfusion.
-he developed L sided chest pain 09/03 afternoon so discharge was cancelled. trop was negative. EKG was stable. CXR with some improvement compared to prior however remains with evidence of some pulm edema. he has not had recurrence today
-He was diuresed with some improvement, however then developed GER with bump in creatinine to 3.5 as also with diarrhea/cdiff. Diuretics and OP farxiga remain on hold. He was not on Lasix prior to admission. Nephrology following. Creatinine down
slightly to 3.0. will defer to nephrology, may need low dose lasix for DC as he requires intermittent transfusion. perhaps pleuritic chest discomfort secondary to volume
-will add back OP norvasc 10mg daily for DC, unclear why was not ordered on admission
-he received transfusion 09/03 and hgb up to 7.9 on 09/04.
-He is chronically on Coumadin for history of paroxysmal atrial fibrillation. INRs managed by [facility]. INR was 5.4 on 08/28, 3.9 on 08/31. Goal INR 2-3, perhaps should try to keep INR between 2-2.5. He is also on aspirin with known LAD
disease. d/w hematology 09/03, given MGUS, would have anemia issues regardless of antiplatelet/anticoagulation regimen. no evidence of active bleeding at present. Previously we had looked into Eliquis 2.5 mg twice daily, however at that time he was
newly elected health plan with Rx coverage will not kick in until June 2023 - per CM cost to patient now $0 per month. will discuss with patient further at upcoming appt 09/04. will DC on slightly lower dose of coumadin 3mg QPM as presented with
supratherapeutic INR. repeat INR Saturday vs Saturday. will inform coumadin clinic
-echo with EF 45-50% by simpsons, however visually stable at 50-55% so not felt to be significant change
-Continue toprol, amiodarone, nitro-dur.
-continue crestor
-OP farxiga stopped
-planned for DC today and currently has clothes on and personal items packed up
-OP cardiac follow up arranged
-will need BMP Saturday vs Saturday for reassessment.
-high risk for readmission
Progress Note - Toys Inspector
Subjective
Date of Service: September 05, 2023
for DC
Objective
Labs:
09/05/23 05:31
09/05/23 05:31
Labs
Hgb 7.9 g/dL (13.0-18.0) L 09/05/23 05:31
Hct 25.3 % (39.0-52.0) L 09/05/23 05:31
Plt Count 193 10^3/uL (130-400) 09/05/23 05:31
PT 25.2 Sec (11.4-14.6) H 09/05/23 05:31
INR 2.26 09/05/23 05:31
Sodium 136 mmol/L (135-145) 09/05/23 05:31
Potassium 4.5 mmol/L (3.5-5.1) 09/05/23 05:31
BUN 61 mg/dl (9-20) H 09/05/23 05:31
Creatinine 3.0 mg/dL (0.7-1.3) H 09/05/23 05:31
Glucose 103 mg/dl (70-99) H 09/05/23 05:31
Troponins
09/04/23
15:47
Troponin I < 0.012
Vital Signs and I&O:
Vital Signs
Temp Pulse Resp BP Pulse Ox
98.1 F 79 20 142/64 93
09/05/23 07:00 09/05/23 10:39 09/04/23 23:22 09/05/23 10:39 09/05/23 07:00
Vital Signs
Temp Pulse Resp BP Pulse Ox
98.1 F 79 20 142/64 93
09/05/23 07:00 09/05/23 10:39 09/04/23 23:22 09/05/23 10:39 09/05/23 07:00
Intake & Output
09/03/23 09/04/23 09/05/23 09/06/23
07:59 07:59 07:59 07:59
Intake Total 1320 / 1320 1240 / 1240 960 / 960
Output Total 100 / 100 600 / 600 925 / 925
Balance 1220 / 1220 640 / 640 35 / 35
Physical Exam
Physical Exam
GEN: No distress, awake, alert, oriented x3. appears frail
HEENT: supple, anicteric, mmm, eomi
LUNGS: no audible wheezes
NEURO: Gross non-focal
SKIN: Warm, pink, dry. No rash
--- NOTE | 2023-09-05 11:22 | CM ---
Pt for d/c today
PT recs HH - declined
Reports has ride home with his son
Plan - home no needs
[2023-09-05 11:48] VITALS: BP 130/59
--- NOTE | 2023-09-05 12:32 | W.PN.NEPH.PH ---
Today's Communication / Plan
-
for discharge today
Assessment/Plan
-
Assessment:
CKD 4
Metabolic acidosis
CLL
Acute anemia
Ischemic cardiomyopathy
Elevated troponin
pAfib (on AC)
BPH
COPD
Plan:
-GER-cr down to 3.0, last dose lasix 08/31
holding Farxiga
non oliguric `600cc
bladder scan 133cc
hematology follows for myelofibrosis, monitor hgb which continues to fall
no more chest pain today
BP are soft on low dose bb, check orthostatic vitals , prn IVF
continue po bicarb for met acidosis
stable
-
-
Date of Service: September 05, 2023
CC / HPI / ROS
-
Chief Complaint:
GER with CKD
History of Present Illness:
cr down to 3
hgb low at 7.9 post 2 units PRBC this admit
repeat blood transfusion yesterday
BP stable
Review of Systems:
Chest pain today after blood transfusion
no dysuria
Labs
-
Labs:
WBC 8.0 10^3/uL (4.8-10.8) 09/05/23 05:31
RBC 2.75 10^6/uL (4.70-6.10) L 09/05/23 05:31
Hgb 7.9 g/dL (13.0-18.0) L 09/05/23 05:31
Hct 25.3 % (39.0-52.0) L 09/05/23 05:31
Plt Count 193 10^3/uL (130-400) 09/05/23 05:31
Sodium 136 mmol/L (135-145) 09/05/23 05:31
Potassium 4.5 mmol/L (3.5-5.1) 09/05/23 05:31
Chloride 108 mmol/L (98-107) H 09/05/23 05:31
Carbon Dioxide 25 mmol/L (22-30) 09/05/23 05:31
BUN 61 mg/dl (9-20) H 09/05/23 05:31
Creatinine 3.0 mg/dL (0.7-1.3) H 09/05/23 05:31
eGFR 20.11 09/05/23 05:31
Glucose 103 mg/dl (70-99) H 09/05/23 05:31
Calcium 7.8 mg/dl (8.4-10.2) L 09/05/23 05:31
Ety-J-Fdganqobclu Pept 6950 pg/ml 09/01/23 04:13
Albumin 3.0 g/dl (3.5-5.0) L 09/01/23 04:13
Physical Exam
-
Vital Signs:
Vital Signs
Temp Pulse Resp BP Pulse Ox
97.6 F 63 18 130/59 93
09/05/23 11:48 09/05/23 11:48 09/05/23 11:48 09/05/23 11:48 09/05/23 11:48
Cardiovascular:: Regular rate and rhythm
Respiratory:: Bilateral: Coarse
Lung Excursion:: Normal
Abdomen:: Nontender and Soft
Bowel Sounds:: Normal
Extremity Edema:: None: Bilateral:
== END 2023-09-05 14:19 | disposition home or self-care (01) | DRG 291 ==
LOC: 3 WEST ACU 08:57
PROVIDERS: Internal Medicine; Specialist; ADMITTING PHYSICIAN Family Medicine; ATTENDING PHYSICIAN Internal Medicine; CONSULT PHYSICIAN Internal Medicine Cardiovascular Disease; CONSULT PHYSICIAN Specialist; EMERGENCY PHYSICIAN Emergency Medicine; FAMILY PHYSICIAN Family Medicine; OTHER PHYSICIAN Internal Medicine Hematology & Oncology
PROC: 30233N1 Transfusion of Nonautologous Red Blood Cells into Peripheral Vein, Percutaneous Approach (ICD-10-PCS; 2023-09-01)
DX: I13.0 Hypertensive heart and chronic kidney disease with heart failure and stage 1 through stage 4 chronic kidney disease, or unspecified chronic kidney disease (principal); I50.33 Acute on chronic diastolic (congestive) heart failure; J96.01 Acute respiratory failure with hypoxia; J44.0 Chronic obstructive pulmonary disease with (acute) lower respiratory infection; N18.4 Chronic kidney disease, stage 4 (severe); C91.10 Chronic lymphocytic leukemia of B-cell type not having achieved remission; E87.20 Acidosis, unspecified; D47.1 Chronic myeloproliferative disease; N17.9 Acute kidney failure, unspecified; D80.3 Selective deficiency of immunoglobulin G [IgG] subclasses; A04.72 Enterocolitis due to Clostridium difficile, not specified as recurrent; D47.2 Monoclonal gammopathy; E11.22 Type 2 diabetes mellitus with diabetic chronic kidney disease; E78.00 Pure hypercholesterolemia, unspecified; I25.10 Atherosclerotic heart disease of native coronary artery without angina pectoris; I48.0 Paroxysmal atrial fibrillation; D63.8 Anemia in other chronic diseases classified elsewhere; I45.10 Unspecified right bundle-branch block; D45 Polycythemia vera; N40.0 Benign prostatic hyperplasia without lower urinary tract symptoms; G47.33 Obstructive sleep apnea (adult) (pediatric); M10.9 Gout, unspecified; I25.5 Ischemic cardiomyopathy; Z79.01 Long term (current) use of anticoagulants; Z87.891 Personal history of nicotine dependence; I25.2 Old myocardial infarction; Z79.82 Long term (current) use of aspirin; Z88.8 Allergy status to other drugs, medicaments and biological substances; Z87.01 Personal history of pneumonia (recurrent)
CPT/HCPCS: 93308; 36415; 36430; 71045; 71046; 80048; 80053; 80061; 82570; 82962; 83735; 83880; 84145; 84300; 84443; 84484; 85025; 85027; 85610; 86704; 86706; 86850; 86900; 86901; 86920; 86922; 87045; 87046; 87077; 87324; 87340; 87341; 87427; 87449; 87798; 93005; 93321; 93325; 97162; 97166; 99291; P9058; Q9950

== ENCOUNTER → 2023-09-12 12:34 | Outpatient (REF) | payer MEDICARE, SELFPAY ==
[2023-09-12 13:08] LABS: % Basophils 0.4 % (0-2); % Immature Granulocytes 1.7 % (0-0.5); % Lymphocytes 18.9 % (20.5-51.1); % Monocytes 4.5 % (1.7-9.3); % Neutrophils 71.5 % (42.2-75.2); Absolute Eosinophils 0.2 10^3/uL (0-0.7); Absolute Immature Granulocytes 0.1 10^3/uL (0-0.05); Absolute Lymphocytes 1.4 10^3/uL (1.2-3.4); Absolute Monocytes 0.3 10^3/uL (0.1-0.6); Absolute Neutrophils 5.4 10^3/uL (1.4-6.5); Hematocrit 32.8 % (39.0-52.0); Hemoglobin 10.2 g/dL (13.0-18.0); Mean Corp Hgb Conc. 31.1 g/dL (33.0-37.0); Mean Corpuscular Hgb 28.8 pg (27.0-31.0); Mean Corpuscular Volume 92.7 fL (80.0-94.0); Mean Platelet Volume 9.7 fL (7.4-10.4); Platelet Count 249 10^3/uL (130-400); Red Blood Cell Count 3.54 10^6/uL (4.70-6.10); White Blood Cell Count 7.6 10^3/uL (4.8-10.8)
[2023-09-12 14:35] LABS: INR 2.19; PT 24.6 Sec (11.4-14.6)
[2023-09-12 14:36] LABS: ALT (SGPT) 30 U/L (0-50); AST (SGOT) 26 U/L (17-59); Albumin 3.7 g/dl (3.5-5.0); Alkaline Phosphatase 72 U/L (38-126); Blood Urea Nitrogen 43 mg/dl (9-20); Calcium 8.9 mg/dl (8.4-10.2); Carbon Dioxide 24 mmol/L (22-30); Chloride 108 mmol/L (98-107); Glucose 118 mg/dl (70-99); Potassium 4.3 mmol/L (3.5-5.1); Sodium 137 mmol/L (135-145); Total Bilirubin 0.6 mg/dl (0.2-1.3); Total Protein 6.4 g/dl (6.3-8.2); eGFR 21.84
== END ==
LOC: OIDL 12:34
PROVIDERS: ATTENDING PHYSICIAN Internal Medicine Hematology & Oncology; FAMILY PHYSICIAN Family Medicine; OTHER PHYSICIAN Internal Medicine Cardiovascular Disease; OTHER PHYSICIAN Specialist
DX: C91.10 Chronic lymphocytic leukemia of B-cell type not having achieved remission (principal); I48.91 Unspecified atrial fibrillation; I48.0 Paroxysmal atrial fibrillation
CPT/HCPCS: 36415; 80053; 85025; 85610

== ENCOUNTER 2023-09-23 20:38 | Inpatient (IN) | payer MEDICARE, SELFPAY ==
[2023-09-23 14:34] VITALS: BP 146/61
[2023-09-23 15:04] LABS: % Basophils 0.6 % (0-2); % Eosinophils 0.4 % (0-6); % Immature Granulocytes 2.1 % (0-0.5); % Lymphocytes 5.6 % (20.5-51.1); % Monocytes 3.3 % (1.7-9.3); Absolute Basophils 0.1 10^3/uL (0-0.2); Absolute Eosinophils 0.1 10^3/uL (0-0.7); Absolute Immature Granulocytes 0.4 10^3/uL (0-0.05); Absolute Lymphocytes 1.1 10^3/uL (1.2-3.4); Absolute Monocytes 0.7 10^3/uL (0.1-0.6); Absolute Neutrophils 17.7 10^3/uL (1.4-6.5); Hematocrit 33.9 % (39.0-52.0); Hemoglobin 10.5 g/dL (13.0-18.0); Mean Corpuscular Hgb 29.1 pg (27.0-31.0); Mean Corpuscular Volume 93.9 fL (80.0-94.0); Mean Platelet Volume 10.3 fL (7.4-10.4); Nucleated Red Blood Cells % 0.5 % (-); Platelet Count 238 10^3/uL (130-400); Red Blood Cell Count 3.61 10^6/uL (4.70-6.10); Red Cell Dist. Width 21.5 % (11.5-14.5); White Blood Cell Count 20.1 10^3/uL (4.8-10.8)
[2023-09-23 15:44] LABS: ALT (SGPT) 22 U/L (0-50); AST (SGOT) 18 U/L (17-59); Albumin 3.9 g/dl (3.5-5.0); Alkaline Phosphatase 95 U/L (38-126); Blood Urea Nitrogen 65 mg/dl (9-20); Calcium 9.2 mg/dl (8.4-10.2); Carbon Dioxide 17 mmol/L (22-30); Chloride 115 mmol/L (98-107); Glucose 145 mg/dl (70-99); Sodium 141 mmol/L (135-145); Total Bilirubin 0.8 mg/dl (0.2-1.3); Total Protein 6.6 g/dl (6.3-8.2); eGFR 12.04
--- NOTE | 2023-09-23 16:15 | ED.GENMED ---
History of Present Illness
General
Chief Complaint: Change in Mental Status
Time Seen by Provider: 09/23/23 16:15
Travel History
Have you had any contact with someone who has COVID-19?: No
Do you have any symptoms of coronavirus? Fever > 100 degrees, chills, cough, shortness of breath, sore throat, loss of taste or smell, muscle aches, or headache?: No
History of Present Illness
History of Present Illness:
HPI: Patient presents due to weakness and a change in mental status. Family reports that he has had increasing confusion over the past 3 days starting the day after he had a COVID shot. He recently got out of [facility] with admission for
heart failure and C. difficile. He feels somewhat dehydrated.
EXAM:
GENERAL: Appears generally weak
HEENT: Dry oral mucosa
CARDIOVASCULAR: No murmurs, normal heart rate, regular rhythm, No chest wall tenderness
PULMONARY: No respiratory distress, breath sounds are clear and equal
ABDOMEN: Soft with no peritoneal signs, no tenderness
NEUROLOGIC: Fair strength all extremities, no coordination deficits
PSYCHIATRIC: Appropriate mental status, normal insight and judgement, but there does appear to be some very mild cognitive deficits
EXTREMITIES: Nontender, no edema, moves all extremities equally
SKIN: No rash, no lesions
TIME OF INITIAL ENCOUNTER: 4:30 PM
NUMBER AND COMPLEXITY OF PROBLEMS ADDRESSED AT THE ENCOUNTER
� Chronic conditions affecting care: COPD, A-fib, CAD, hyperlipidemia, myelofibrosis
� Acute Exacerbation and/or Progression of Chronic Illness: This is an acute problem
� Differential Diagnosis includes: Dehydration, GER, sepsis, bacteremia
AMOUNT AND/OR COMPLEXITY OF DATA TO BE REVIEWED AND ANALYZED
� I performed an independent evaluation of and my interpretation is:
EKG:
CT:
X-rays: Chest x-ray shows no clear sign of infection
Laboratory Studies: White count is 20.1, hemoglobin 10.5, creatinine is 4.6, BUN is 65, bicarb 17�GFR is 12, urinalysis shows no infection
Other:
� Review of other/old records: The patient's baseline creatinine is primarily in the 2.5-3.3 range. I reviewed the discharge summary from 09/05/2023t that time it was noted that the echo from 07/01/2023 showed an EF of 50 to 55%.
Due to rising creatinine, IV Lasix diuresis and Farxiga were held. Oxygen was able to be's weaned off. He was also given a unit of blood. He was also getting p.o. vancomycin for C. difficile.
� Clinical information was obtained by an independent historian: I spoke to and a friend at bedside
� Prescriptions/Medications Considered but not given:
� Further testing considered but not performed:
RISK OF COMPLICATIONS AND/OR MORBIDITY OR MORTALITY OF PATIENT MANAGEMENT
� Social determinants of health affecting care: Lives at home
� Discussion with other providers: Dr. Wolfe for admission at 7:22 PM
� Escalation of care including admission/observation vs risk of discharge considered: The patient appears generally weak. Leukocytosis is noted which is new in comparison to time of discharge earlier this month. He appears
somewhat dehydrated was given IV fluids. His NIHSS equals 0. The patient appears generally weak. The patient was given IV fluids due to acute on chronic renal insufficiency. Family states he has been doing very poorly at home. Will plan to keep
in the hospital for further management.
Past History
Past History
ED Past Medical History: Arrthythmia (Atrial fibrillation), CAD, Cancer (CLL ( Lymphocytic Leukemia)), COPD, HTN, Hypercholesterolemia, NIDDM, DE, Renal failure and Other (Anemia, PNA, Hernia, Bleeding gums, PNA)
ED Past Surgical History: Cardiac (Stents X2)
Social History
Tobacco: Former smoker
Alcohol: None
Drug: None
Personal:
Living: with family
Employment: Not employed
Family History
Family History: CAD
Phy Exam
Physical Exam
Physical Exam:
See HPI
Course
Orders/Labs/Results
Orders:
Orders
09/23/23 14:42
Complete Blood Count/With Diff Urgent
Comprehensive Metabolic Panel Urgent
09/23/23 16:16
0.9% Sodium Chloride 500 ml [Nss] 500 ml IV BOLUS
09/23/23 16:17
CR Chest - 2 Views Urgent
Comment:
Reason For Exam: leukocytosis
09/23/23 16:26
Lactic Acid Q4H
Comment: CANCEL 2nd LACTIC ACID IF 1st LACTIC ACID IS LESS THAN 2
Blood Culture Q30M
GERALD Source: Blood/Venous
Specimen Description:
Blood Culture Q30M
GERALD Source: Blood/Venous
Specimen Description:
09/23/23 18:22
Urinalysis Reflex To Culture Urgent
Date Specimen was Collected: 09/23/23
Time Specimen was Collected: 16:20
Urine Microscopic Reflex Cult Urgent
09/23/23 19:53
Prothrombin Time Urgent
09/23/23 19:56
CT Head W/o Iv Contrast Urgent
Comment:
Reason For Exam: confusion
Abnormal Lab Results
09/23/23 09/23/23
14:42 18:22
WBC 20.1 H 10^3/uL
(4.8-10.8)
RBC 3.61 L 10^6/uL
(4.70-6.10)
Hgb 10.5 L g/dL
(13.0-18.0)
Hct 33.9 L %
(39.0-52.0)
MCHC 31.0 L g/dL
(33.0-37.0)
RDW 21.5 H %
(11.5-14.5)
Abs Immat Gran (auto) 0.4 H 10^3/uL
(0-0.05)
Absolute Neuts (auto) 17.7 H 10^3/uL
(1.4-6.5)
Absolute Lymphs (auto) 1.1 L 10^3/uL
(1.2-3.4)
Absolute Monos (auto) 0.7 H 10^3/uL
(0.1-0.6)
Immature Gran % 2.1 H %
(0-0.5)
Neutrophils % 88.0 H %
(42.2-75.2)
Lymphocytes % 5.6 L %
(20.5-51.1)
Chloride 115 H mmol/L
(98-107)
Carbon Dioxide 17 L mmol/L
(22-30)
BUN 65 H mg/dl
(9-20)
Creatinine 4.6 H* mg/dL
(0.7-1.3)
Glucose 145 H mg/dl
(70-99)
Urine Ketones Trace A
(Negative)
Urine Bilirubin 1+ A
(Negative)
Urine Albumin (Reflex) 2+ A
(Neg - Trace)
09/23/23 14:42
09/23/23 14:42
Vital Signs
Initial and Last Documented VS:
Initial Vital Signs
Temp Pulse Resp BP Pulse Ox
97.5 F 63 16 146/61 98
09/23/23 14:34 09/23/23 14:34 09/23/23 14:34 09/23/23 14:34 09/23/23 14:34
Last Documented Vital Signs
Temp Pulse Resp BP Pulse Ox
97.5 F 70 18 150/58 96
09/23/23 14:34 09/23/23 19:15 09/23/23 19:15 09/23/23 19:00 09/23/23 19:15
*Critical Care Note
Total Time (30-74mins, 75-104mins- exclusive of procedures): Not Applicable
ED Attending Note
-
Portions of this chart may have been created with voice recognition software.� Occasional wrong word or��sound alike� substitutions may have occurred due to the inherent limitations of voice recognition software.
Discharge Plan
Departure
Patient Disposition: Admit
Date of Disposition: 09/23/23
Time of Disposition: 19:22
Presentation/result/management discussed w/ accepting MD/DO: Hospitalist
Discharge Problem:
Acute on chronic renal insufficiency
Prescriptions:
No Action
rosuvastatin 5 MG tablet
5 mg PO QPM
nitroglycerin [Nitro-Dur] 0.6 mg/hr Patch 24 Hour
1 patch TRANSDERMAL DAILY Qty: 0
Patient Comments:
09/23/2023, pt. currently wearing a patch on left arm.
ferrous sulfate 325 mg (65 mg iron) Tablet
325 mg PO Q48H@1800 Qty: 0
finasteride 5 mg Tablet
5 mg PO QPM
febuxostat 40 mg Tablet
40 mg PO DAILY
Hold Instructions: Until renal function improve
amiodarone 200 mg tablet
200 mg PO DAILY Qty: 30 0RF
nitroglycerin 0.3 mg tablet, sublingual
0.3 mg sublingual [id number] PRN (Reason: chest pain)
aspirin 81 mg Tablet,Delayed Release (Dr/Ec)
81 mg PO DAILY
metoprolol succinate 25 mg tablet extended release 24 hr
12.5 mg PO QPM
Hold Instructions: until Bp>140/90
guaifenesin 600 mg Tablet Extended Release 12hr
600 mg PO BID
Ojjaara 200 mg Tablet
200 mg PO QPM
Aranesp
1 dose SC Q3W
Patient Comments:
09/23/2023, pt. gets through [place].
ipratropium-albuterol 0.5 mg-3 mg(2.5 mg base)/3 mL Solution For Nebulization
3 ml INHALATION R BIDPRN PRN (Reason: sob)
warfarin [Jantoven] 2.5 mg Tablet
2.5 mg PO QPM
Rx Instructions:
09/23/2023, take with 1 mg for a total of 3.5 mg.
budesonide 0.5 mg/2 mL Suspension For Nebulization
0.5 mg INHALATION R BIDPRN PRN (Reason: sob)
warfarin [Jantoven] 1 mg Tablet
1 mg PO QPM
Rx Instructions:
09/23/2023, take with 2.5 mg for a total of 3.5 mg.
amlodipine 10 mg tablet
10 mg PO QPM
Referrals:
Rob Santos MD [Family Provider] -
Interventions
Interventions:
*Risk Screen - Suicide Last Done: 09/23/23 14:31
*General Assessment Last Done: 09/23/23 14:31
*Neglect/Abuse Screening Last Done: 09/23/23 14:31
ED- Fall Risk Assessment Last Done: 09/23/23 17:52
*ED COVID-19 Vaccine History Last Done: 09/23/23 17:52
ED- Pulmonary Assessment Last Done: 09/23/23 17:14
ED- Neurological Assessment Last Done: 09/23/23 17:14
ED- Cardiac Assessment Last Done: 09/23/23 17:14
Discharge Date and Time
Print Language: WOLOF
[2023-09-23] MEDS: NSS 500 IV (16:30)
[2023-09-23 16:33] VITALS: BMI 21.1
[2023-09-23 16:51] LABS: Lactic Acid 1.1 mmol/L (0.7-2.0)
[2023-09-23 17:00] VITALS: BP 148/58
[2023-09-23 18:00] VITALS: BP 151/55
[2023-09-23 18:28] LABS: Urine Albumin 2+ (Neg - Trace); Urine Bilirubin 1+ (Negative); Urine Character Clear (Clear); Urine Color Yellow; Urine Glucose Negative (Negative); Urine Ketone Trace (Negative); Urine Leukocyte Negative (Negative); Urine Nitrite Negative (Negative); Urine Occult Blood Negative (Negative); Urine Specific Gravity 1.025 (<1.030); Urine Urobilinogen Negative (Neg - 1+)
[2023-09-23 18:35] LABS: Urine Squamous Cell 0-2 /LPF (Few)
[2023-09-23 18:36] LABS: Urine Red Blood Cell None Seen /HPF (0-2)
[2023-09-23 19:00] VITALS: BP 150/58
[2023-09-23 20:00] VITALS: BP 134/56
--- NOTE | 2023-09-23 20:10 | HPS.HSE ---
Addendum entered and electronically signed by Sanchez Wolfe DO 09/23/23 21:10:
Patient seen and examined independently. Agree with findings and plan as set forth by Patricia Cartagena PA-C.
Patient is an 83y M with PMH significant for A-Fib, CHF. ASCVD and DM-II who presents to ED for evaluation of change in mental status. Family noted that patient was confused, weak and hypoverbal over the past 3 days or so. Patient received his
most recent COVID booster about 24 hours prior to onset of these symptoms. No other recent med changes, symptoms, etc.
Patient received IVFs here in the ED and is already feeling much improved and appears near baseline according to his .
Ass:
Acute TME - ? due to med
GER on CKD IV
Metabolic Acidosis - Probably Chronic secondary to CKD
ASCVD
Chronic HFpEF
Paroxysmal Atrial Fibrillation
Benign Hypertension
COPD without Acute Exacerbation
CLL / Myelofibrosis
BPH
Plan:
Admit for further evaluation and treatment.
Very gentle IVFs to continue overnight.
Follow for continued clinical improvement.
Restart oral bicarbonate supplementation - ensure that patient is discharged on this medicine.
Continue other usual outpatient medications.
Original Note:
Family Physician
-
Family Physician: Rob Santos
Chief Complaint
-
Confusion
History of Present Illness
Patient is an 83 y/o male with a past medical history of heart failure, atrial fibrillation, coronary artery disease, chronic obstructive pulmonary disease, diabetes mellitus, hypertension, chronic kidney disease, and myelofibrosis who presents with
his for confusion and weakness that began after receiving a COVID shot a few days ago. His reports that he became confused, began having difficulty speaking, and trouble ambulating the day after receiving the vaccine. He progressively got
worse over the past 3 days so she brought him to the emergency department today. At baseline, he drives, speaks, and ambulates without difficulty. During the history, he is oriented x 3. notes he mentation is almost back to baseline since
receiving IV He denies new fever, shortness of breath, chest pain, abdominal pain, nausea, vomiting, diarrhea, and urinary changes.
Medical History
Past Medical History
Past Medical History: Reports Other
Additional Past Medical History:
Coronary Artery Disease
Chronic HFpEF
Paroxysmal Atrial Fibrillation
Essential Hypertension
Hyperlipidemia
Diabetes Mellitus, Type II
CKD Stage IV
Chronic Metabolic Acidosis
COPD
CLL
Polycythemia Vera
Myelofibrosis
IgG Deficiency
Monoclonal Gammopathy of Uncertain Significance
BPH
Obstructive Sleep Apnea
Past Surgical History: Reports Other
Additional Past Surgical History:
Cardiac Stents
Pilonidal Cyst
Left Hand Surgery
Social History
Tobacco: Former Smoker (Quit over 50 years ago)
Alcohol: None
Drug: None
Personal:
Living: With Family
Family History
Family History: CAD
Allergies / Home Medications
Allergies reflects when Allergies were last updated in [employer].
Home Medications with original date entered in [employer]
Allergy/Medication List:
Allergies
Allergy/AdvReac Type Severity Reaction Status Date / Time
atorvastatin Allergy ? M-S pain Verified 09/01/23 04:12
immune globulin,gamma (IgG) Allergy Anaphylaxis Verified 09/01/23 04:12
human
prednisone Allergy Unknown Verified 09/01/23 04:12
Home Medications
rosuvastatin 5 mg tablet 5 mg PO QPM High Cholesterol 07/09/19
febuxostat 40 mg tablet 40 mg PO DAILY uric acid 04/29/23
ferrous sulfate 325 mg (65 mg iron) tablet 325 mg PO Q48H@1800 Supplement ##0 04/29/23
finasteride 5 mg tablet 5 mg PO QPM BPH 04/29/23
nitroglycerin 0.6 mg/hr transdermal 24 hour patch (Nitro-Dur) 1 patch transdermal DAILY Heart Disease/Condition ##0 04/29/23
amiodarone 200 mg tablet 200 mg PO DAILY #30 tabs 06/13/23
aspirin 81 mg tablet,delayed release 81 mg PO DAILY Blood Clot Prevention/Tx 06/20/23
metoprolol succinate 25 mg tablet,extended release 24 hr 12.5 mg PO QPM Heart Disease/Condition 06/20/23
nitroglycerin 0.3 mg sublingual tablet 0.3 mg sublingual [id number] PRN chest pain 06/20/23
guaifenesin 600 mg tablet, extended release 12 hr 600 mg PO BID Neurological Condition 09/01/23
momelotinib 200 mg tablet (Ojjaara) 200 mg PO QPM Cancer 09/01/23
Aranesp 1 dose SC Q3W 09/23/23
amlodipine 10 mg tablet 10 mg PO QPM 09/23/23
budesonide 0.5 mg/2 mL suspension for nebulization 0.5 mg inhalation R BIDPRN PRN sob 09/23/23
ipratropium 0.5 mg-albuterol 3 mg (2.5 mg base)/3 mL nebulization soln 3 ml inhalation R BIDPRN PRN sob 09/23/23
warfarin 1 mg tablet (Jantoven) 1 mg PO QPM 09/23/23
warfarin 2.5 mg tablet (Jantoven) 2.5 mg PO QPM 09/23/23
Review of Systems
-
A 12 point ROS was completed and negative except as noted: Yes
Constitutional: Denies Fever or Chills
Respiratory: Denies Cough or Trouble Breathing
Cardiac: Denies Chest Pain or Palpitations
Abdomen/GI: Denies Abdominal Pain, Nausea or Vomiting
: Denies Dysuria, Frequency or Difficulty Voiding
Physical Exam
Vital Signs
Vital Signs
Temp Pulse Resp BP Pulse Ox
97.5 F 68 29 134/56 97
09/23/23 14:34 09/23/23 20:00 09/23/23 20:00 09/23/23 20:00 09/23/23 20:00
Physical Exam
General: Comfortable and Conversant
HEENT: Anicteric and Moist mucous membranes
Respiratory: Clear and Non Labored Respirations
Cardiac: S1/S2 and Regular Rhythm
GI: Soft and Non Tender
Rectal: Deferred by Provider
Musculoskeletal: No Clubbing, No Cyanosis and No Edema
Skin: Warm and Dry
Neuro: Awake, Alert, Oriented and Nonfocal/grossly intact
Psych: Calm
Laboratory Results
-
09/23/23 14:42
09/23/23 14:42
Laboratory Results
Lactic Acid Cancelled 09/23/23 20:30
Total Bilirubin 0.8 mg/dl (0.2-1.3) 09/23/23 14:42
AST 18 U/L (17-59) 09/23/23 14:42
ALT 22 U/L (0-50) 09/23/23 14:42
Alkaline Phosphatase 95 U/L (38-126) 09/23/23 14:42
Data Reviewed
-
Lab Data: Labs Reviewed by me
Impression/Plan
-
Acute Kidney Injury on CKD Stage IV
-Continue slow IVFs overnight
-Recheck Creatinine in AM
Metabolic Acidosis
-Patient was receiving oral bicarb during last admission which was stopped at time of discharge
-Resume oral sodium bicarbonate
Coronary Artery Disease s/p Stent
-Continue aspirin
-Continue Nitroglycerin Patch
Chronic HFpEF
-Farxiga stopped last admission due to worsening renal function
-Continue fluid restriction
-Monitor Is&Os and Daily Weights
Paroxysmal Atrial Fibrillation
-Continue amiodarone and Metoprolol for rate/rhythm control
-Continue Coumadin
Essential Hypertension
-Continue amlodipine with hold parameters
COPD, no acute exacerbation
-Continue Duoneb PRN
CLL
Chronic Anemia
Myelofibrosis
-Continue iron supplement
-Patient maintained on Ojjaara, and Aranesp as outpatient
-Monitor counts
BPH
-Continue finasteride
DVT proph: Coumadin
Code Status: Full Code
[2023-09-23 20:28] LABS: INR 4.97; PT 46.4 Sec (11.4-14.6)
[2023-09-23 23:48] VITALS: BMI 21.4
[2023-09-24] VITALS (9 sets, daily range): BP systolic 136–177; BP diastolic 51–69; PULSE 70–76; BMI 21.4; BMI 21.3
[2023-09-24] MEDS: NSS 500 IV (00:52)
--- NOTE | 2023-09-24 01:20 | PTCARENOTE ---
Received patient from ED via stretcher. Patient pulled over from stretcher to bed. Patient is AAOx3, no current complaints of pain. Oriented patient to room and placed call gibbons within reach.
[2023-09-24 05:46] LABS: Hematocrit 29.6 % (39.0-52.0); Hemoglobin 9.4 g/dL (13.0-18.0); Mean Corp Hgb Conc. 31.8 g/dL (33.0-37.0); Mean Corpuscular Hgb 29.2 pg (27.0-31.0); Mean Corpuscular Volume 91.9 fL (80.0-94.0); Mean Platelet Volume 10.4 fL (7.4-10.4); Platelet Count 191 10^3/uL (130-400); Red Blood Cell Count 3.22 10^6/uL (4.70-6.10); Red Cell Dist. Width 20.8 % (11.5-14.5); White Blood Cell Count 17.5 10^3/uL (4.8-10.8)
[2023-09-24 06:22] LABS: PT 50.6 Sec (11.4-14.6)
[2023-09-24 06:27] LABS: INR 5.54
[2023-09-24 06:34] LABS: Blood Urea Nitrogen 62 mg/dl (9-20); Calcium 8.8 mg/dl (8.4-10.2); Carbon Dioxide 17 mmol/L (22-30); Chloride 114 mmol/L (98-107); Estimated Creatinine Clearance 12 ml/min; Glucose 78 mg/dl (70-99); Magnesium 2.4 mg/dl (1.6-2.3); Potassium 3.4 mmol/L (3.5-5.1); Sodium 141 mmol/L (135-145)
[2023-09-24] MEDS: PACERONE 200 MG PO (09:52)
[2023-09-24] MEDS: MUCINEX 600 MG PO ×2 (09:52→21:58)
[2023-09-24] MEDS: NITRO-DUR 0.599999999999999978 MG TRANSDERM (09:52)
[2023-09-24] MEDS: ASPIR LOW (ENTERIC COATED) 81 MG PO (09:52)
[2023-09-24] MEDS: SODIUM BICARBONATE 650 MG PO (09:53)
[2023-09-24] MEDS: FLUSH (NSS) 1 FLUSH IV ×2 (09:53→14:30)
[2023-09-24 10:11] LABS: Urine Sodium 59 mmol/L (30-90)
--- NOTE | 2023-09-24 12:44 | W.PN.HOSP.TC ---
Today's Communication/Plan
-
continue IVF/Bicarb
monitor diarrhea
ID consult to evaluate for recurring vs persisting C. Diff
hold Coumadin
Assessment / Plan
Assessment / Plan
Assessment:
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
Metabolic acidosis
- pre-renal per FENA
- continue IVF (bicarb)
- hold PO Bicarb
- avoid nephrotoxins
- renal/bladder US routinely
- follow BMP
Hypokalemia from diarrhea
- replete cautiously
- follow BMP
Diarrhea, possibly recurrent vs persistent C. Diff
- completed oral Vanco course x 10 days, but remains with diarrhea x 1 week
- ID consulted may need treatment again
Complex cardiovascular history of with ischemic heart disease and diffusely IFR positive LAD extending into the distal left main
- Medical management to decrease frequency / severity of anginal symptoms.
- Continue current meds including metoprolol, amlodipine, Nitro patch, NGT tabs
- Follow for any new/worsening symptoms.
Chronic HFpEF
- Monitor Is&Os and Daily Weights
- may need diuretics
Paroxysmal Atrial Fibrillation
- continue amiodarone and Metoprolol for rate/rhythm control
- hold Coumadin for supratherapeutic INR and follow INRs
Essential Hypertension
- continue amlodipine with hold parameters
COPD, no acute exacerbation
-Continue Duoneb PRN
CLL
Chronic Anemia
Myelofibrosis
- Continue iron supplement
- Patient maintained on Ojjaara, and Aranesp as outpatient
- continue ASA
- Monitor counts
BPH
- Continue finasteride
DVT ppx: supratherapeutic INR
Code: Full Code
Anticipated Discharge: > 48 hours
Subjective/Interval History
-
Date of Service: September 24, 2023
in room, helps with history
patient with 2 BMs today, liquid diarrhea, reports several movements daily in the past week
recently C. Diff positive as well
Objective Data
-
Labs:
Laboratory Results
09/24/23
05:19
WBC 17.5 H
Hgb 9.4 L
Hct 29.6 L
Plt Count 191
PT 50.6 H
INR 5.54 H*
Sodium 141
Potassium 3.4 L
Chloride 114 H
Carbon Dioxide 17 L
BUN 62 H
Creatinine 4.4 H*
Glucose 78
Calcium 8.8
Vital Signs:
Vital Signs
Temp Pulse Resp BP Pulse Ox
98.3 F 65 18 152/55 97
09/24/23 07:55 09/24/23 07:55 09/24/23 07:55 09/24/23 07:55 09/24/23 07:55
I&O
09/23/23 09/24/23 09/25/23
06:59 06:59 06:59
Intake Total 0 / 0
Output Total 100 / 100
Balance -100 / -100
Physical Exam
-
General: No Apparent Distress
HEENT: Normocephalic and Atraumatic
Respiratory: Negative Wheezes or Rales
Cardiac: Regular Rhythm and S1/S2
GI: Soft and Nontender
Musculoskeletal: No Edema
Neuro: AO x 3
Hematologic / Lymphatic: No Lymphadenopathy
Psych: Calm
Data Reviewed
-
Total Time Spent with Patient (in minutes): 47
Labs: Labs Reviewed by me
--- NOTE | 2023-09-24 14:10 | CON.ID ---
Consultation
-
Date/Time Consultation Requested: September 24, 2023 1309
Date/Time Consultation Performed: September 24, 2023 1410
Requesting Provider: Dr. Florina Ahmadi
Performing Provider: Dr. Maggi Salgado
Reason for Consultation: Recurrent diarrhea after C. difficile treatment
Chief Complaint / Past History
Chief Complaint
Weakness and confusion
History of Present Illness
83-year-old male with diabetes mellitus type 2, CKD 4, myelofibrosis on who was hospitalized in June 2023 with fever, pneumonia treated with antibiotic. He was admitted August 31 to September 04 with symptomatic anemia HgB 6.7. Patient also
with loose stools and C. difficile positive. He was placed on oral vancomycin and discharged to complete a 10-day course. He states his diarrhea improved while on the oral vancomycin. He completed the course at home as directed. The past week
and a half, he has been having increased frequency in bowel movements. He normally has bowel movements once a day. Lately he has frequent loose to soft stools about 3-5 times a day. No abdominal pain. No fevers. He received the COVID-vaccine
several days ago. His noted patient more confused and weak therefore brought him to the hospital on September 22. His white count was 20.1. Patient noted to be in acute on chronic kidney failure. He had 2 episodes of diarrhea today. Patient's
mental status has improved. He continues to feel weak. No cough or shortness of breath.
Past History
Additional Past Medical History:
Diabetes Mellitus, Type II
CKD Stage IV
C. difficile (09/01/23) s/p 10d po Vancomycin
Myelofibrosis on O
hx CLL s/p fludarabine
Coronary Artery Disease/stents
Chronic HFpEF
Paroxysmal Atrial Fibrillation
Essential Hypertension
Hyperlipidemia
COPD
IgG Deficiency
Monoclonal Gammopathy of Uncertain Significance
BPH
gout
Obstructive Sleep Apnea
Left hand surgery
Allergy History:
atorvastatin Allergy (Verified 09/01/23 04:12)
? M-S pain
immune globulin,gamma (IgG) human Allergy (Verified 09/01/23 04:12)
Anaphylaxis
prednisone Allergy (Verified 09/01/23 04:12)
Unknown
Medications Reviewed: Yes
Current Antibiotics:
none
Social History
Tobacco: Former Smoker
Alcohol: None
Drug: None
Personal:
Living: With Family
Family History
Family History: Not Pertinent
Review of Systems
Review of Systems
General: Change in Appetite; Negative Fever or Chills
HEENT: Negative Sinus Problems, Headache or Pharyngitis
Cardiovascular: Negative Chest Pain
Respiratory: Negative Dyspnea or Cough
Gasteroenterology: Negative Nausea or Vomiting
Genital / Urological: Negative Dysuria or Flank Pain
Endocrine: Weakness and Fatigue
Skin / Hair / Nails: Negative Rash
Neurological: Negative Headache or Dizziness
All systems: All other systems were reviewed and were negative
Vital Signs
Temp Pulse Resp BP Pulse Ox
99.0 F 69 18 156/62 94
09/24/23 11:55 09/24/23 11:55 09/24/23 11:55 09/24/23 11:55 09/24/23 11:55
Physical Exam
Physical Exam
Constitutional: No Acute Distress
Eyes: No Conjunctival Hemorrhage and Sclera Anicteric
Cardiovascular: Regular Rate and S1/S2
Pulmonary: Clear
Gastrointestinal: Soft and Non Tender
Genito-Urinary: Negative CVA Tenderness
Extremities: Negative Edema
Neurological: AO x 3
Lab / Diagnostic Study Results
09/24/23 05:19
09/24/23 05:19
Abs Immat Gran (auto) 0.4 10^3/uL (0-0.05) H 09/23/23 14:42
Absolute Neuts (auto) 17.7 10^3/uL (1.4-6.5) H 09/23/23 14:42
Absolute Lymphs (auto) 1.1 10^3/uL (1.2-3.4) L 09/23/23 14:42
Absolute Monos (auto) 0.7 10^3/uL (0.1-0.6) H 09/23/23 14:42
Absolute Basos (auto) 0.1 10^3/uL (0-0.2) 09/23/23 14:42
Immature Gran % 2.1 % (0-0.5) H 09/23/23 14:42
Neutrophils % 88.0 % (42.2-75.2) H 09/23/23 14:42
Lymphocytes % 5.6 % (20.5-51.1) L 09/23/23 14:42
Monocytes % 3.3 % (1.7-9.3) 09/23/23 14:42
Eosinophils % 0.4 % (0-6) 09/23/23 14:42
Basophils % 0.6 % (0-2) 09/23/23 14:42
PT 50.6 Sec (11.4-14.6) H 09/24/23 05:19
INR 5.54 H* 09/24/23 05:19
Lactic Acid Cancelled 09/23/23 20:30
Ur Squamous Epith Cells 0-2 /LPF (Few) 09/23/23 18:22
Microbiology Results
Micro:
09/23/23 16:26 Blood Culture - Pending
Blood/Venous
09/23/23 16:26 Blood Culture - Pending
Blood/Venous
09/23/23 CXR: Interval decrease in ground-glass opacity and increased interstitial markings in the mid and lower lungs since 09/04/2023 (either resolving pulmonary edema or pneumonia).
Assessment / Plan
# Probable first recurrence of C. difficile diarrhea
- Recently completed 10d po vancomycin (4/1 to 09/10)
# Leukocytosis
# GER on CKD4
# Immunocompromised host - myelofibrosis
- Check stool for C. diff.
- If +C. diff, start fidaxomicin 200mg po bid.
- Trend WBC.
[2023-09-24] MEDS: SODIUM BICARBONATE 1150 MEQ IV (14:30)
[2023-09-24] MEDS: KCL 40 MEQ PO (14:30)
--- NOTE | 2023-09-24 16:33 | CM ---
Alert awake oriented patient who lives with his Sharon who lives in a 2 story home with 2 step to enter and bed and bathroom on first floor. He is independent in driving and in all activities of daily living.He was offered Vn he declined need.
[facility] hx / [facility] history
Ph[facility]
PCP DR Santos
PLAN Home Declined VN
[2023-09-24] MEDS: PROSCAR 5 MG PO (17:23)
[2023-09-24] MEDS: NORVASC 10 MG PO (17:23)
[2023-09-24] MEDS: FEOSOL 325 MG PO (17:23)
[2023-09-24] MEDS: TOPROL XL 12.5 MG PO (17:24)
[2023-09-24] MEDS: CRESTOR 5 MG PO (17:27)
[2023-09-25] VITALS (7 sets, daily range): BP systolic 118–157; BP diastolic 58–76; PULSE 74–84; BMI 21.3
[2023-09-25 06:17] LABS: % Basophils 0.6 % (0-2); % Eosinophils 1.1 % (0-6); % Lymphocytes 7.4 % (20.5-51.1); % Monocytes 4.6 % (1.7-9.3); % Neutrophils 84.3 % (42.2-75.2); Absolute Basophils 0.1 10^3/uL (0-0.2); Absolute Eosinophils 0.2 10^3/uL (0-0.7); Absolute Immature Granulocytes 0.3 10^3/uL (0-0.05); Absolute Lymphocytes 1.1 10^3/uL (1.2-3.4); Absolute Monocytes 0.7 10^3/uL (0.1-0.6); Hematocrit 29.5 % (39.0-52.0); Hemoglobin 9.5 g/dL (13.0-18.0); Mean Corp Hgb Conc. 32.2 g/dL (33.0-37.0); Mean Corpuscular Hgb 28.9 pg (27.0-31.0); Mean Corpuscular Volume 89.7 fL (80.0-94.0); Mean Platelet Volume 10.1 fL (7.4-10.4); Nucleated Red Blood Cells % 0.6 % (-); Platelet Count 185 10^3/uL (130-400); Red Blood Cell Count 3.29 10^6/uL (4.70-6.10); Red Cell Dist. Width 20.8 % (11.5-14.5); White Blood Cell Count 14.2 10^3/uL (4.8-10.8)
[2023-09-25 06:46] LABS: INR 5.05
[2023-09-25 06:49] LABS: Blood Urea Nitrogen 55 mg/dl (9-20); Calcium 8.4 mg/dl (8.4-10.2); Carbon Dioxide 21 mmol/L (22-30); Chloride 113 mmol/L (98-107); Estimated Creatinine Clearance 17 ml/min; Glucose 91 mg/dl (70-99); Potassium 3.5 mmol/L (3.5-5.1); Sodium 139 mmol/L (135-145); eGFR 19.33
--- NOTE | 2023-09-25 07:10 | PTCARENOTE ---
@ 5547;Instructed PADMA Nails ,via TT,on critical INR = 5.05.
[2023-09-25] MEDS: SODIUM BICARBONATE 1150 MEQ IV (07:37)
[2023-09-25] MEDS: PACERONE 200 MG PO (07:38)
[2023-09-25] MEDS: MUCINEX 600 MG PO ×2 (07:39→20:09)
[2023-09-25] MEDS: NITRO-DUR 0.599999999999999978 MG TRANSDERM (07:39)
[2023-09-25] MEDS: ASPIR LOW (ENTERIC COATED) 81 MG PO (07:39)
[2023-09-25] MEDS: FIRVANQ 125 MG PO ×2 (12:07→17:08)
--- NOTE | 2023-09-25 13:49 | W.PN.HOSP.TC ---
Today's Communication/Plan
-
continue PO Vanco and observe stool patterns
monitor BMP
Assessment / Plan
Assessment / Plan
Assessment:
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
Metabolic acidosis
- pre-renal per [facility]NA
- cap IVF
- resume PO PO Bicarb
- avoid nephrotoxins
- renal/bladder US pending
- follow BMP
Hypokalemia from diarrhea
- replete cautiously
- follow BMP
Diarrhea, possibly recurrent vs persistent C. Diff
- completed oral Vanco course x 10 days, but remains with diarrhea x 1 week
- ID consulting; started back on PO Vanco
Complex cardiovascular history of with ischemic heart disease and diffusely IFR positive LAD extending into the distal left main
- Medical management to decrease frequency / severity of anginal symptoms.
- Continue current meds including metoprolol, amlodipine, Nitro patch, NGT tabs
- Follow for any new/worsening symptoms.
Chronic HFpEF
- Monitor Is&Os and Daily Weights
- may need diuretics
Paroxysmal Atrial Fibrillation
- continue amiodarone and Metoprolol for rate/rhythm control
- hold Coumadin for supratherapeutic INR and follow INRs
Essential Hypertension
- continue amlodipine with hold parameters
COPD, no acute exacerbation
-Continue Duoneb PRN
CLL
Chronic Anemia
Myelofibrosis
- Continue iron supplement
- Patient maintained on Ojjaara, and Aranesp as outpatient. Ojjaara is held
- continue ASA
- Monitor counts
BPH
- Continue finasteride
DVT ppx: supratherapeutic INR
Code: Full Code
Anticipated Discharge: > 48 hours
Subjective/Interval History
-
Date of Service: September 25, 2023
futher loose stools overnight into today
started on PO Vanco
Objective Data
-
Labs:
Laboratory Results
09/25/23
05:47
WBC 14.2 H
Hgb 9.5 L
Hct 29.5 L
Plt Count 185
PT 47.0 H
INR 5.05 H*
Sodium 139
Potassium 3.5
Chloride 113 H
Carbon Dioxide 21 L
BUN 55 H
Creatinine 3.1 H
Glucose 91
Calcium 8.4
Vital Signs:
Vital Signs
Temp Pulse Resp BP Pulse Ox
97.7 F 70 18 146/64 97
09/25/23 11:00 09/25/23 11:00 09/25/23 11:00 09/25/23 11:00 09/25/23 11:00
I&O
09/24/23 09/25/23 09/26/23
06:59 06:59 06:59
Intake Total 0 / 0 1620 / 1620
Output Total 100 / 100 150 / 150
Balance -100 / -100 1470 / 1470
Physical Exam
-
General: No Apparent Distress
HEENT: Normocephalic and Atraumatic
Respiratory: Negative Wheezes
Cardiac: Regular Rhythm and S1/S2
GI: Soft and Nontender
Genito-urinary: No Costovertebral Tender
Neuro: AO x 3
Psych: Calm
Data Reviewed
-
Total Time Spent with Patient (in minutes): 41
Labs: Labs Reviewed by me
[2023-09-25] MEDS: SODIUM BICARBONATE 650 MG PO ×2 (15:06→21:54)
--- NOTE | 2023-09-25 15:18 | W.PN.ID1 ---
Date of Service
Date of Service: September 25, 2023
Today's Communication
See below.
Assessment / Plan
# Possible first recurrence of C. difficile diarrhea
- Recently completed 10d po vancomycin (09/01 to 09/10)
# Leukocytosis- improving (before po Vanco)
# GER on CKD4 improving
# Immunocompromised host - myelofibrosis
- C. diff antigen positive, toxin neg
Unclear C. diff active infection vs colonization.
Since he has increase in BM frequency, will treat empirically.
Recommend Vancomycin taper as follows:
125mg po qid x 10 days, then
125mg po tid x 7 days, then
125mg po bid x 7 days, then
125mg po qd x 7 days, then
125mg po qod x 7 days, then
125mg po q72h x 7 days, then stop.
#Additional Past Medical History:
Diabetes Mellitus, Type II
CKD Stage IV
C. difficile (09/01/23) s/p 10d po Vancomycin
Myelofibrosis on Ojjaara
hx CLL s/p fludarabine
Coronary Artery Disease/stents
Chronic HFpEF
Paroxysmal Atrial Fibrillation
Essential Hypertension
Hyperlipidemia
COPD
IgG Deficiency
Monoclonal Gammopathy of Uncertain Significance
BPH
gout
Obstructive Sleep Apnea
Left hand surgery
Chief Complaint
-: C-diff
Subjective / Review of Systems
Reports 2 liquid BM today.
Vital Signs / Physical Exam
Vital Signs
Vital Signs
Temp Pulse Resp BP Pulse Ox
97.7 F 70 18 146/64 97
09/25/23 11:00 09/25/23 11:00 09/25/23 11:00 09/25/23 11:00 09/25/23 11:00
Physical Exam
Constitutional: No Acute Distress and Comfortable
Eyes: Pupils Equal and No Conjunctival Hemorrhage
Cardiovascular: Regular Rate and S1/S2
Gastrointestinal: Soft, Non Tender, Non Distended and Organomegaly
Neurological: AO x 3
Objective Data
Lab Data
Lab Results
09/25/23 05:47
09/25/23 05:47
PT 47.0 Sec (11.4-14.6) H 09/25/23 05:47
INR 5.05 H* 09/25/23 05:47
Estimated Creat Clear 17 ml/min 09/25/23 05:47
Lactic Acid Cancelled 09/23/23 20:30
Total Bilirubin 0.8 mg/dl (0.2-1.3) 09/23/23 14:42
AST 18 U/L (17-59) 09/23/23 14:42
ALT 22 U/L (0-50) 09/23/23 14:42
Alkaline Phosphatase 95 U/L (38-126) 09/23/23 14:42
Most recent labs reviewed.
Micro Results:
09/25/23 01:46 C. difficile GDH Antigen & Toxins - Final
Feces/Stool C. difficile antigen positive, toxin negative.
Clostridium difficile present, but toxin not detected.
Patient may be a carrier, colonized with nontoxinogenic
strain or the level of toxin in sample is below detection
limits. This information should be used in conjunction with
the patient's clinical history.
09/23/23 16:26 Blood Culture - Preliminary
Blood/Venous No Growth in 24 hours- Final report to follow
09/23/23 16:26 Blood Culture - Preliminary
Blood/Venous No Growth in 24 hours- Final report to follow
09/23/23 CXR: Interval decrease in ground-glass opacity and increased interstitial markings in the mid and lower lungs since 09/04/2023 (either resolving pulmonary edema or pneumonia).
Care Review
Plan reviewed with: Physician (Dr. Ahmadi)
[2023-09-25] MEDS: NORVASC 10 MG PO (17:08)
[2023-09-25] MEDS: TOPROL XL 12.5 MG PO (17:08)
[2023-09-25] MEDS: PROSCAR 5 MG PO (17:09)
[2023-09-25] MEDS: CRESTOR 5 MG PO (17:09)
[2023-09-26] VITALS (7 sets, daily range): BP systolic 107–142; BP diastolic 56–73; PULSE 63–73; BMI 21.5
[2023-09-26] MEDS: FIRVANQ 125 MG PO ×5 (00:32→23:41)
[2023-09-26 06:12] LABS: % Basophils 0.7 % (0-2); % Eosinophils 1.8 % (0-6); % Immature Granulocytes 2.3 % (0-0.5); % Lymphocytes 8.9 % (20.5-51.1); % Monocytes 5.9 % (1.7-9.3); % Neutrophils 80.4 % (42.2-75.2); Absolute Basophils 0.1 10^3/uL (0-0.2); Absolute Eosinophils 0.2 10^3/uL (0-0.7); Absolute Immature Granulocytes 0.3 10^3/uL (0-0.05); Absolute Lymphocytes 1.1 10^3/uL (1.2-3.4); Absolute Monocytes 0.7 10^3/uL (0.1-0.6); Absolute Neutrophils 9.8 10^3/uL (1.4-6.5); Hematocrit 30.6 % (39.0-52.0); Hemoglobin 9.9 g/dL (13.0-18.0); Mean Corp Hgb Conc. 32.4 g/dL (33.0-37.0); Mean Corpuscular Hgb 28.6 pg (27.0-31.0); Mean Corpuscular Volume 88.4 fL (80.0-94.0); Mean Platelet Volume 9.2 fL (7.4-10.4); Nucleated Red Blood Cells % 0.7 % (-); Platelet Count 186 10^3/uL (130-400); Red Blood Cell Count 3.46 10^6/uL (4.70-6.10); Red Cell Dist. Width 20.6 % (11.5-14.5); White Blood Cell Count 12.2 10^3/uL (4.8-10.8)
[2023-09-26 06:33] LABS: INR 3.91; PT 38.9 Sec (11.4-14.6)
[2023-09-26 06:39] LABS: Blood Urea Nitrogen 48 mg/dl (9-20); Calcium 8.6 mg/dl (8.4-10.2); Carbon Dioxide 23 mmol/L (22-30); Chloride 112 mmol/L (98-107); Estimated Creatinine Clearance 20 ml/min; Glucose 95 mg/dl (70-99); Potassium 3.4 mmol/L (3.5-5.1); Sodium 139 mmol/L (135-145); eGFR 21.84
[2023-09-26] MEDS: SODIUM BICARBONATE 650 MG PO ×3 (08:19→23:40)
[2023-09-26] MEDS: MUCINEX 600 MG PO ×2 (08:19→20:09)
[2023-09-26] MEDS: PACERONE 200 MG PO (08:19)
[2023-09-26] MEDS: KCL 40 MEQ PO (08:19)
[2023-09-26] MEDS: ASPIR LOW (ENTERIC COATED) 81 MG PO (08:19)
[2023-09-26] MEDS: NITRO-DUR 0.599999999999999978 MG TRANSDERM (08:20)
--- NOTE | 2023-09-26 11:20 | W.PN.HOSP.TC ---
Today's Communication/Plan
-
continue PO vanco (send to his pharmacy to allow them to order it)
monitor stools
follow INRs
DC planning
Assessment / Plan
Assessment / Plan
Assessment:
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
Metabolic acidosis
- pre-renal per [facility]
- improved with IVF
- resume PO Bicarb
- avoid nephrotoxins
- renal/bladder US without obstruction
- follow BMP
Hypokalemia from diarrhea
- replete cautiously
- follow BMP
Diarrhea, possibly recurrent vs persistent C. Diff
- completed oral Vanco course x 10 days, but remains with diarrhea x 1 week
- ID consulting; started back on PO Vanco as follows:
- 125mg po qid x 10 days, then
125mg po tid x 7 days, then
125mg po bid x 7 days, then
125mg po qd x 7 days, then
125mg po qod x 7 days, then
125mg po q72h x 7 days, then stop.
Complex cardiovascular history of with ischemic heart disease and diffusely IFR positive LAD extending into the distal left main
- Medical management to decrease frequency/severity of anginal symptoms.
- Continue current meds including metoprolol, amlodipine, Nitro patch, NGT tabs
- Follow for any new/worsening symptoms.
Chronic HFpEF
- Monitor Is&Os and Daily Weights
- may need diuretics
Paroxysmal Atrial Fibrillation
- continue amiodarone and Metoprolol for rate/rhythm control
- hold Coumadin for supratherapeutic INR and follow INRs
Essential Hypertension
- continue amlodipine with hold parameters
COPD, no acute exacerbation
-Continue Duoneb PRN
CLL
Chronic Anemia
Myelofibrosis
- Continue iron supplement
- Patient maintained on Ojjaara, and Aranesp as outpatient. Ojjaara is held
- continue ASA
- Monitor counts
BPH
- Continue finasteride
DVT ppx: supratherapeutic INR
Code: Full Code
Anticipated Discharge: 24 - 48 hours
Subjective/Interval History
-
Date of Service: September 26, 2023
denies any new complaints at present, diarrhea improving
Objective Data
-
Labs:
Laboratory Results
09/26/23
05:56
WBC 12.2 H
Hgb 9.9 L
Hct 30.6 L
Plt Count 186
PT 38.9 H
INR 3.91
Sodium 139
Potassium 3.4 L
Chloride 112 H
Carbon Dioxide 23
BUN 48 H
Creatinine 2.8 H
Glucose 95
Calcium 8.6
Vital Signs:
Vital Signs
Temp Pulse Resp BP Pulse Ox
98.1 F 70 18 136/73 93
09/26/23 07:00 09/26/23 08:19 09/26/23 07:00 09/26/23 08:19 09/26/23 09:56
I&O
09/25/23 09/26/23 09/27/23
06:59 06:59 06:59
Intake Total 1620 / 1620 1010 / 1010
Output Total 150 / 150 475 / 475
Balance 1470 / 1470 535 / 535
Physical Exam
-
General: No Apparent Distress
HEENT: Normocephalic and Atraumatic
Respiratory: Negative Wheezes or Rales
Cardiac: Regular Rhythm and S1/S2
GI: Soft and Nontender
Musculoskeletal: No Edema
Neuro: AO x 3
Hematologic / Lymphatic: No Lymphadenopathy
Psych: Calm
Data Reviewed
-
Total Time Spent with Patient (in minutes): 42
Labs: Labs Reviewed by me
--- NOTE | 2023-09-26 14:14 | W.PN.ID1 ---
Date of Service
Date of Service: September 26, 2023
Today's Communication
Continue VAnco taper.
Assessment / Plan
# Possible first recurrence of C. difficile diarrhea
- Recently completed 10d po vancomycin (09/01 to 09/10)
# Leukocytosis- improving (before po Vanco)
# GER on CKD4 improving
# Immunocompromised host - myelofibrosis
- C. diff antigen positive, toxin neg
Unclear C. diff active infection vs colonization.
Since he has increase in BM frequency, will treat empirically.
Diarrhea improving.
Recommend Vancomycin taper as follows:
125mg po qid x 10 days through 10/05/23, then
125mg po tid x 7 days, then
125mg po bid x 7 days, then
125mg po qd x 7 days, then
125mg po qod x 7 days, then
125mg po q72h x 7 days, then stop.
#Additional Past Medical History:
Diabetes Mellitus, Type II
CKD Stage IV
C. difficile (09/01/23) s/p 10d po Vancomycin
Myelofibrosis on Ojjaara
hx CLL s/p fludarabine
Coronary Artery Disease/stents
Chronic HFpEF
Paroxysmal Atrial Fibrillation
Essential Hypertension
Hyperlipidemia
COPD
IgG Deficiency
Monoclonal Gammopathy of Uncertain Significance
BPH
gout
Obstructive Sleep Apnea
Left hand surgery
Chief Complaint
-: C-diff
Subjective / Review of Systems
BM less frequent and now pudding like, not loose.
Vital Signs / Physical Exam
Vital Signs
Vital Signs
Temp Pulse Resp BP Pulse Ox
98.1 F 63 18 139/59 95
09/26/23 11:00 09/26/23 11:00 09/26/23 11:00 09/26/23 11:00 09/26/23 11:00
Physical Exam
Constitutional: No Acute Distress
Cardiovascular: Regular Rate
Pulmonary: Clear
Gastrointestinal: Soft, Non Tender and Non Distended
Neurological: AO x 3
Objective Data
Lab Data
Lab Results
09/26/23 05:56
09/26/23 05:56
PT 38.9 Sec (11.4-14.6) H 09/26/23 05:56
INR 3.91 09/26/23 05:56
Estimated Creat Clear 20 ml/min 09/26/23 05:56
Lactic Acid Cancelled 09/23/23 20:30
Total Bilirubin 0.8 mg/dl (0.2-1.3) 09/23/23 14:42
AST 18 U/L (17-59) 09/23/23 14:42
ALT 22 U/L (0-50) 09/23/23 14:42
Alkaline Phosphatase 95 U/L (38-126) 09/23/23 14:42
Most recent labs reviewed.
Micro Results:
09/23/23 16:26 Blood Culture - Preliminary
Blood/Venous No Growth in 48 hours- Final report to follow
09/23/23 16:26 Blood Culture - Preliminary
Blood/Venous No Growth in 48 hours- Final report to follow
09/25/23 01:46 C. difficile GDH Antigen & Toxins - Final
Feces/Stool C. difficile antigen positive, toxin negative.
Clostridium difficile present, but toxin not detected.
Patient may be a carrier, colonized with nontoxinogenic
strain or the level of toxin in sample is below detection
limits. This information should be used in conjunction with
the patient's clinical history.
09/23/23 CXR: Interval decrease in ground-glass opacity and increased interstitial markings in the mid and lower lungs since 09/04/2023 (either resolving pulmonary edema or pneumonia).
[2023-09-26] MEDS: TOPROL XL 12.5 MG PO (17:03)
[2023-09-26] MEDS: FEOSOL 325 MG PO (17:03)
[2023-09-26] MEDS: PROSCAR 5 MG PO (17:03)
[2023-09-26] MEDS: NORVASC 10 MG PO (17:03)
[2023-09-26] MEDS: CRESTOR 5 MG PO (17:05)
[2023-09-27 03:40] VITALS: BP 128/63
[2023-09-27] MEDS: FIRVANQ 125 MG PO ×2 (05:22→13:07)
[2023-09-27 06:00] VITALS: BMI 21.7
[2023-09-27 06:20] LABS: % Basophils 1.1 % (0-2); % Eosinophils 1.6 % (0-6); % Immature Granulocytes 3.3 % (0-0.5); % Lymphocytes 11.8 % (20.5-51.1); % Monocytes 6.3 % (1.7-9.3); % Neutrophils 75.9 % (42.2-75.2); Absolute Basophils 0.1 10^3/uL (0-0.2); Absolute Eosinophils 0.2 10^3/uL (0-0.7); Absolute Immature Granulocytes 0.4 10^3/uL (0-0.05); Absolute Lymphocytes 1.5 10^3/uL (1.2-3.4); Absolute Monocytes 0.8 10^3/uL (0.1-0.6); Absolute Neutrophils 9.6 10^3/uL (1.4-6.5); Hemoglobin 11.2 g/dL (13.0-18.0); Mean Corp Hgb Conc. 31.1 g/dL (33.0-37.0); Mean Corpuscular Hgb 28.4 pg (27.0-31.0); Mean Corpuscular Volume 91.4 fL (80.0-94.0); Mean Platelet Volume 9.8 fL (7.4-10.4); Nucleated Red Blood Cells % 0.7 % (-); Platelet Count 193 10^3/uL (130-400); Red Blood Cell Count 3.94 10^6/uL (4.70-6.10); Red Cell Dist. Width 20.5 % (11.5-14.5); White Blood Cell Count 12.6 10^3/uL (4.8-10.8)
[2023-09-27 06:25] LABS: INR 3.22; PT 33.4 Sec (11.4-14.6)
[2023-09-27 06:44] LABS: Blood Urea Nitrogen 44 mg/dl (9-20); Calcium 8.9 mg/dl (8.4-10.2); Carbon Dioxide 24 mmol/L (22-30); Chloride 110 mmol/L (98-107); Estimated Creatinine Clearance 21 ml/min; Glucose 91 mg/dl (70-99); Sodium 140 mmol/L (135-145); eGFR 23.87
[2023-09-27 07:30] VITALS: BP 139/56
[2023-09-27] MEDS: ASPIR LOW (ENTERIC COATED) 81 MG PO (09:37)
[2023-09-27] MEDS: NITRO-DUR 0.599999999999999978 MG TRANSDERM (09:37)
[2023-09-27] MEDS: MUCINEX 600 MG PO (09:37)
[2023-09-27] MEDS: PACERONE 200 MG PO (09:37)
[2023-09-27] MEDS: SODIUM BICARBONATE 650 MG PO (09:37)
--- NOTE | 2023-09-27 10:04 | W.PN.ID1 ---
Date of Service
Date of Service: September 27, 2023
Today's Communication
Continue po vanco taper.
Assessment / Plan
# Possible first recurrence of C. difficile diarrhea
- Recently completed 10d po vancomycin (09/01 to 09/10)
# Leukocytosis- stable.
# GER on CKD4 improving
# Immunocompromised host - myelofibrosis
- C. diff antigen positive, toxin neg
Presumed C. diff active infection with acute change in bowel habits.
Diarrhea resolving
Recommend Vancomycin taper as follows:
125mg po qid x 10 days through 10/05/23, then
125mg po tid x 7 days, then
125mg po bid x 7 days, then
125mg po qd x 7 days, then
125mg po qod x 7 days, then
125mg po q72h x 7 days, then stop.
#Additional Past Medical History:
Diabetes Mellitus, Type II
CKD Stage IV
C. difficile (09/01/23) s/p 10d po Vancomycin
Myelofibrosis on Ojjaara
hx CLL s/p fludarabine
Coronary Artery Disease/stents
Chronic HFpEF
Paroxysmal Atrial Fibrillation
Essential Hypertension
Hyperlipidemia
COPD
IgG Deficiency
Monoclonal Gammopathy of Uncertain Significance
BPH
gout
Obstructive Sleep Apnea
Left hand surgery
Chief Complaint
-: C-diff
Subjective / Review of Systems
Stool are now soft to formed.
Vital Signs / Physical Exam
Vital Signs
Vital Signs
Temp Pulse Resp BP Pulse Ox
97.4 F 63 16 139/56 93
09/27/23 07:30 09/27/23 07:30 09/27/23 07:30 09/27/23 07:30 09/27/23 07:30
Physical Exam
Constitutional: No Acute Distress
Gastrointestinal: Soft, Non Tender and Non Distended
Objective Data
Lab Data
Lab Results
09/27/23 05:58
09/27/23 05:58
PT 33.4 Sec (11.4-14.6) H 09/27/23 05:58
INR 3.22 09/27/23 05:58
Estimated Creat Clear 21 ml/min 09/27/23 05:58
Lactic Acid Cancelled 09/23/23 20:30
Total Bilirubin 0.8 mg/dl (0.2-1.3) 09/23/23 14:42
AST 18 U/L (17-59) 09/23/23 14:42
ALT 22 U/L (0-50) 09/23/23 14:42
Alkaline Phosphatase 95 U/L (38-126) 09/23/23 14:42
Most recent labs reviewed.
Micro Results:
09/23/23 16:26 Blood Culture - Preliminary
Blood/Venous No Growth in 72 hours- Final report to follow
09/23/23 16:26 Blood Culture - Preliminary
Blood/Venous No Growth in 72 hours- Final report to follow
09/25/23 01:46 C. difficile GDH Antigen & Toxins - Final
Feces/Stool C. difficile antigen positive, toxin negative.
Clostridium difficile present, but toxin not detected.
Patient may be a carrier, colonized with nontoxinogenic
strain or the level of toxin in sample is below detection
limits. This information should be used in conjunction with
the patient's clinical history.
09/23/23 CXR: Interval decrease in ground-glass opacity and increased interstitial markings in the mid and lower lungs since 09/04/2023 (either resolving pulmonary edema or pneumonia).
--- NOTE | 2023-09-27 10:30 | W.PN.HOSP.TC ---
Addendum entered and electronically signed by Florina Ahmadi MD 10/03/23 20:21:
TME was present on admission and is now resolved
Original Note:
Today's Communication/Plan
-
dc to home
Assessment / Plan
Assessment / Plan
Assessment:
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
Metabolic acidosis
- pre-renal per [facility]
- improved with IVF
- resume PO Bicarb
- avoid nephrotoxins
- renal/bladder US without obstruction
- BMP next week - script given
Hypokalemia from diarrhea
- replete cautiously
- follow BMP
Diarrhea, possibly recurrent vs persistent C. Diff
- completed oral Vanco course x 10 days, but remains with diarrhea x 1 week
- ID consulting; started back on PO Vanco as follows:
- 125mg po qid x 10 days, then
125mg po tid x 7 days, then
125mg po bid x 7 days, then
125mg po qd x 7 days, then
125mg po qod x 7 days, then
125mg po q72h x 7 days, then stop.
Complex cardiovascular history of with ischemic heart disease and diffusely IFR positive LAD extending into the distal left main
- Medical management to decrease frequency/severity of anginal symptoms.
- Continue current meds including metoprolol, amlodipine, Nitro patch, NGT tabs
- Follow for any new/worsening symptoms.
Chronic HFpEF
- Monitor Is&Os and Daily Weights
- may need diuretics
Paroxysmal Atrial Fibrillation
- continue amiodarone and Metoprolol for rate/rhythm control
- resume Coumadin, INR 3.22
Essential Hypertension
- continue amlodipine with hold parameters
COPD, no acute exacerbation
-Continue Duoneb PRN
CLL
Chronic Anemia
Myelofibrosis
- Continue iron supplement
- Patient maintained on Ojjaara, and Aranesp as outpatient. Ojjaara is held
- continue ASA
- Monitor counts
BPH
- Continue finasteride
DVT ppx: supratherapeutic INR
Code: Full Code
More than 30 minutes spent in discharge including
Final examination of the patient
Summarizing hospital stay
Instructions for continuing care to all relevant caregivers
Preparation of discharge records, prescriptions, and referral forms
Total time spent (in minutes): 41
Anticipated Discharge: Today
Subjective/Interval History
-
Date of Service: September 27, 2023
stools more formed
denies any new complaints
Objective Data
-
Labs:
Laboratory Results
09/27/23
05:58
WBC 12.6 H
Hgb 11.2 L
Hct 36.0 L
Plt Count 193
PT 33.4 H
INR 3.22
Sodium 140
Potassium 4.0
Chloride 110 H
Carbon Dioxide 24
BUN 44 H
Creatinine 2.6 H
Glucose 91
Calcium 8.9
Vital Signs:
Vital Signs
Temp Pulse Resp BP Pulse Ox
97.4 F 63 16 139/56 93
09/27/23 07:30 09/27/23 07:30 09/27/23 07:30 09/27/23 07:30 09/27/23 07:30
I&O
09/26/23 09/27/23 09/28/23
06:59 06:59 06:59
Intake Total 1010 / 1010 1020 / 1020
Output Total 475 / 475 150 / 150
Balance 535 / 535 870 / 870
Physical Exam
-
General: No Apparent Distress
HEENT: Normocephalic and Atraumatic
Respiratory: Negative Wheezes
Cardiac: Regular Rhythm and S1/S2
GI: Soft
Genito-urinary: No Costovertebral Tender
Neuro: AO x 3
Hematologic / Lymphatic: No Lymphadenopathy
Psych: Calm
Data Reviewed
-
Total Time Spent with Patient (in minutes): 41
Labs: Labs Reviewed by me
--- NOTE | 2023-09-27 10:51 | W.DS.TRANS ---
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
-
Discharge Instructions:
Discharge Diagnosis/Procedures C. Diff colitis and GER on CKD
Diet 2 Gram Sodium,Restrict fluids to 64 oz
Activity As tolerated
Bathing Restrictions None
Instructions:
Stand-Alone Forms:
Changes to Home Medications: No
Discharge Medications:
DC Medications w/original date entered in [employer]
rosuvastatin 5 mg tablet 5 mg PO QPM High Cholesterol 07/09/19
febuxostat 40 mg tablet 40 mg PO DAILY uric acid 04/29/23
ferrous sulfate 325 mg (65 mg iron) tablet 325 mg PO Q48H@1800 Supplement ##0 04/29/23
finasteride 5 mg tablet 5 mg PO QPM BPH 04/29/23
nitroglycerin 0.6 mg/hr transdermal 24 hour patch (Nitro-Dur) 1 patch transdermal DAILY Heart Disease/Condition ##0 04/29/23
amiodarone 200 mg tablet 200 mg PO DAILY #30 tabs 06/13/23
aspirin 81 mg tablet,delayed release 81 mg PO DAILY Blood Clot Prevention/Tx 06/20/23
metoprolol succinate 25 mg tablet,extended release 24 hr 12.5 mg PO QPM Heart Disease/Condition 06/20/23
nitroglycerin 0.3 mg sublingual tablet 0.3 mg sublingual [id number] PRN chest pain 06/20/23
guaifenesin 600 mg tablet, extended release 12 hr 600 mg PO BID Neurological Condition 09/01/23
momelotinib 200 mg tablet (Ojjaara) 200 mg PO QPM Cancer 09/01/23
Aranesp 1 dose SC Q3W anemia 09/23/23
amlodipine 10 mg tablet 10 mg PO QPM Blood Pressure 09/23/23
budesonide 0.5 mg/2 mL suspension for nebulization 0.5 mg inhalation R BIDPRN PRN sob 09/23/23
ipratropium 0.5 mg-albuterol 3 mg (2.5 mg base)/3 mL nebulization soln 3 ml inhalation R BIDPRN PRN sob 09/23/23
warfarin 1 mg tablet (Jantoven) 1 mg PO QPM Blood Clot Prevention/Tx 09/23/23
warfarin 2.5 mg tablet (Jantoven) 2.5 mg PO QPM Blood Clot Prevention/Tx 09/23/23
vancomycin 125 mg capsule 125 mg PO DIRECTED #90 caps 09/26/23
sodium bicarbonate 650 mg tablet 650 mg PO TID #90 tabs 09/27/23
Home Medication Changes
Pending Results: No
Total time spent discharging patient (in min): 42
--- NOTE | 2023-09-27 11:17 | CM ---
Pt for d/c today
Pt reports he has a ride home with his
Declined HH when offered
Discussed IMM
Plan - home no needs
--- NOTE | 2023-09-27 11:46 | PTOTSP ---
third attempt for evaluation. pt reports PT was in earlier and she assessed that his function was 'supervision' and he has been evaluated 'up to his eyeballs'. pt reports no need for OT at this time, as he is capable with assistance to complete
simple ADLs, functional transfers. will sign off per pt's request.
[2023-09-27 12:00] VITALS: BP 136/64
--- NOTE | 2023-10-03 11:53 | PN.CDI ---
CDI
- -
CDI:
Physician Documentation Request
Admit Date: 09/23/23 20:38
Dear Doctor Galdino,
Please review the following and provide your response in the progress notes.
Clinical Indicators:
The diagnosis of TME was documented on 09/22 H&P, but is not consistently noted in subsequent documentation.
- 09/22 H&P 'Acute TME - ? due to med'
- 'presents to ED for evaluation of change in mental status'
- 'Family noted that patient was confused'
- 'received his most recent COVID booster about 24 hours prior'
- 'Patient received IVFs here in the ED and is already feeling much improved'
- 3250ml IVF given
Please clarify the following:
____ - TME was present on admission and is now resolved.
____ - TME was ruled out
____ - Other
Use of terms such as suspected, likely, concern for, or probable (associated with a specific diagnosis that is being evaluated, monitored, or treated as if it exists) are acceptable and can be coded in the inpatient setting, when documented at the
time of discharge.
Thank you,
Rigoberto Marino RN
CDI Specialist
Please use your independent medical judgment in providing your response.
== END 2023-09-27 15:06 | disposition home or self-care (01) | DRG 371 ==
LOC: 3 WEST ACU 20:38
PROVIDERS: Emergency Medicine; Physician Assistant Medical; ADMITTING PHYSICIAN Hospitalist; ATTENDING PHYSICIAN Internal Medicine; CONSULT PHYSICIAN Internal Medicine Infectious Disease; EMERGENCY PHYSICIAN Emergency Medicine; FAMILY PHYSICIAN Family Medicine
DX: A04.71 Enterocolitis due to Clostridium difficile, recurrent (principal); G92.8 Other toxic encephalopathy; N17.9 Acute kidney failure, unspecified; J44.0 Chronic obstructive pulmonary disease with (acute) lower respiratory infection; D75.81 Myelofibrosis; I13.0 Hypertensive heart and chronic kidney disease with heart failure and stage 1 through stage 4 chronic kidney disease, or unspecified chronic kidney disease; C91.10 Chronic lymphocytic leukemia of B-cell type not having achieved remission; I50.32 Chronic diastolic (congestive) heart failure; E87.22 Chronic metabolic acidosis; D80.3 Selective deficiency of immunoglobulin G [IgG] subclasses; D84.9 Immunodeficiency, unspecified; N18.4 Chronic kidney disease, stage 4 (severe); E86.0 Dehydration; I48.0 Paroxysmal atrial fibrillation; D64.9 Anemia, unspecified; E11.22 Type 2 diabetes mellitus with diabetic chronic kidney disease; I25.10 Atherosclerotic heart disease of native coronary artery without angina pectoris; E87.6 Hypokalemia; E78.00 Pure hypercholesterolemia, unspecified; N40.0 Benign prostatic hyperplasia without lower urinary tract symptoms; R79.1 Abnormal coagulation profile; M10.9 Gout, unspecified; D45 Polycythemia vera; D47.2 Monoclonal gammopathy; G47.33 Obstructive sleep apnea (adult) (pediatric); Z95.5 Presence of coronary angioplasty implant and graft; Z87.891 Personal history of nicotine dependence; I25.2 Old myocardial infarction; Z79.82 Long term (current) use of aspirin; Z79.01 Long term (current) use of anticoagulants; Z88.8 Allergy status to other drugs, medicaments and biological substances
CPT/HCPCS: 70450; 71046; 76770; 80048; 80053; 81003; 81015; 82570; 83605; 83735; 84300; 85025; 85027; 85610; 87040; 87324; 87449; 96360; 97161; 99285

== ENCOUNTER → 2023-10-03 12:45 | Outpatient (REF) | payer MEDICARE, SELFPAY ==
[2023-10-03 12:58] LABS: % Basophils 0.5 % (0-2); % Immature Granulocytes 2.2 % (0-0.5); % Lymphocytes 10.5 % (20.5-51.1); % Monocytes 4.4 % (1.7-9.3); % Neutrophils 81.4 % (42.2-75.2); Absolute Basophils 0.1 10^3/uL (0-0.2); Absolute Eosinophils 0.1 10^3/uL (0-0.7); Absolute Immature Granulocytes 0.3 10^3/uL (0-0.05); Absolute Lymphocytes 1.6 10^3/uL (1.2-3.4); Absolute Monocytes 0.6 10^3/uL (0.1-0.6); Hemoglobin 10.8 g/dL (13.0-18.0); Mean Corp Hgb Conc. 30.9 g/dL (33.0-37.0); Mean Corpuscular Hgb 28.5 pg (27.0-31.0); Mean Corpuscular Volume 92.3 fL (80.0-94.0); Mean Platelet Volume 9.5 fL (7.4-10.4); Platelet Count 237 10^3/uL (130-400); Red Blood Cell Count 3.79 10^6/uL (4.70-6.10); Red Cell Dist. Width 19.8 % (11.5-14.5); White Blood Cell Count 14.7 10^3/uL (4.8-10.8)
[2023-10-03 14:19] LABS: Nucleated Red Blood Cells % 0 % (-)
[2023-10-03 14:34] LABS: INR 3.61; PT 36.6 Sec (11.4-14.6)
[2023-10-03 15:03] LABS: ALT (SGPT) 16 U/L (0-50); AST (SGOT) 21 U/L (17-59); Albumin 3.6 g/dl (3.5-5.0); Alkaline Phosphatase 79 U/L (38-126); Blood Urea Nitrogen 32 mg/dl (9-20); Calcium 8.7 mg/dl (8.4-10.2); Carbon Dioxide 30 mmol/L (22-30); Chloride 103 mmol/L (98-107); Glucose 129 mg/dl (70-99); HDL Cholesterol 32 mg/dl; LDL Cholesterol, Calculated 45 mg/dl; Potassium 4.3 mmol/L (3.5-5.1); Sodium 138 mmol/L (135-145); Total Bilirubin 0.7 mg/dl (0.2-1.3); Total Cholesterol 111 mg/dl (50-199); Triglyceride 171 mg/dl (10-149); Uric Acid 6.7 mg/dl (3.5-8.5); Very Low Density Lipoprotein 34 mg/dl (0-30); eGFR 26.28
[2023-10-04 08:59] LABS: Glycohemoglobin (HgbA1c) 5.2 % (4.0-5.6)
== END ==
LOC: OIDL 12:45
PROVIDERS: Internal Medicine Cardiovascular Disease; ATTENDING PHYSICIAN Internal Medicine Hematology & Oncology; FAMILY PHYSICIAN Family Medicine; OTHER PHYSICIAN Specialist
DX: C91.10 Chronic lymphocytic leukemia of B-cell type not having achieved remission (principal); I48.91 Unspecified atrial fibrillation; I48.0 Paroxysmal atrial fibrillation; E11.9 Type 2 diabetes mellitus without complications
CPT/HCPCS: 36415; 80053; 80061; 83036; 84443; 84550; 85025; 85610

== ENCOUNTER 2023-10-24 18:57 | Inpatient (IN) | payer MEDICARE, SELFPAY ==
[2023-10-24] VITALS (19 sets, daily range): BP systolic 118–200; BP diastolic 57–115; BMI 24.0; BMI 22.0
--- NOTE | 2023-10-24 15:09 | ED.GENMED ---
History of Present Illness
General
Chief Complaint: Breathing Problem
Source: patient
Exam Limitations: none
Time Seen by Provider: 10/24/23 14:10
Nursing documentation reviewed up to this point in time: agreed with
Travel History
Have you had any contact with someone who has COVID-19?: No
Do you have any symptoms of coronavirus? Fever > 100 degrees, chills, cough, shortness of breath, sore throat, loss of taste or smell, muscle aches, or headache?: No
History of Present Illness
History of Present Illness:
Patient with history of CLL, current receiving treatment, along with history of anemia requiring blood transfusion, presents to ED secondary to worsening shortness of breath exertion over the past 2 days. Patient was receiving outpatient Aranesp
treatment at the [facility] center, when he was found to be severely hypoxic and transferred to ED for an evaluation. Denies fever or chills. Denies chest pain. Denies headache. Denies dizziness. Denies nausea or vomiting. Denies diarrhea.
Patient reports decreased appetite. Patient has received multiple blood transfusions in the past, as advised by his oncologist, when his hemoglobin falls below 8. Denies leg pain or swelling
Past History
Past History
ED Past Medical History: Arrthythmia (Atrial fibrillation), CAD, Cancer (CLL ( Lymphocytic Leukemia)), COPD, HTN, Hypercholesterolemia, NIDDM, OR, Renal failure and Other (Anemia, PNA, Hernia, Bleeding gums, PNA)
ED Past Surgical History: Cardiac (Stents X2)
Social History
Tobacco: Former smoker
Alcohol: None
Drug: None
Personal:
Living: with family
Employment: Not employed
Family History
Family History: CAD
Review of Systems
Review of Systems
Allergies reviewed?: Yes
All Other Systems: ROS reviewed and negative except as documented in HPI and ROS
Constitutional: Reports no symptoms
Respiratory: Reports trouble breathing
Cardiac: Denies chest pain
ABD/GI: Reports no symptoms
Musculoskeletal: Reports no symptoms
Skin: Reports no symptoms
Neurological: Reports no symptoms
Phy Exam
Physical Exam
Physical Exam:
Physical Exam
General: mild distress, not acutely ill. afebrile.
Head: nc/at. eomi
Neck: supple. normal range of motion.
Heart: s1/s2 regular rate and rhythm, no murmur. equal radial pulses.
Lungs: mild respiratory distress. mild expiratory wheezing bilaterally
Abdomen: normal bowel sounds. not tender.
Neuro: alert and oriented. no focal neurological deficits
Skin: no rash
Psychiatric: well kept. interactive and cooperative
Extremities: no edema. no calf tenderness.
Scores
Heart Failure Risk
Heart Failure Risk Score: Not Applicable
Course
Orders/Labs/Results
Orders:
Orders
10/24/23 14:50
Type+Screen Urgent
D-Dimer Urgent
10/24/23 15:17
Ipratropium/Albuterol Sulfate [Duoneb] 3 ml INH R NOW STA
10/24/23 15:24
US Legs, Bilateral [US Periph Venous LOWER Ext Bill] Urgent
Comment:
Reason For Exam: hypoxia with leg swelling
10/24/23 16:41
CR Chest Portable - 1 View Urgent
Comment:
Reason For Exam: hypoxia/sob
Reason Study Needs to be Portable: Patient Unstable
10/24/23 17:01
Add On- LAB Urgent
Tests Added?: ProBNP
10/24/23 17:23
Admit/Transfer Patient As Directed
Co-Sign Provider:
Level of Care: Inpatient admission
Assign to:: IMU- Intermediate Care
Physician / Group: juventino
Diagnosis: pneumonia
Reason for Hospitalization: pneumonia
Expected length of stay greater than two midnights?: Yes
ELOS- Estimated Length of Stay in days: 2
I certify the patient meets the requirements for IP care: Yes
10/24/23 17:24
Code Status As Directed
Resuscitation Status: Full Code
10/24/23 17:26
Sputum Culture [Respiratory Culture/Gram Stain] Urgent
GERALD Source: Sputum
Specimen Description:
10/24/23 18:00
Piperacillin/Tazo 3.375 Gram [Zosyn] 3.375 gram in 50 ml IV Q6H
VANCOMYCIN Pharmacy to Dose [VANCOCIN Pharmacy to Dose] 1 each Pharmacy To Prepare [Call Pharmacy To Prepare] 0 ml IV PER PROTOCOL
10/24/23 18:26
COVID-19 Antigen Urgent
Source: Nasal Swab
NT-proBNP Urgent
Comment: COLLECT. NO SST OR GREEN TOP IN LAB.
PTT Urgent
Prothrombin Time Urgent
Blood Culture Q30M
EGRALD Source: Blood/Venous
Specimen Description:
Blood Culture Q30M
GERALD Source: Blood/Venous
Specimen Description:
Influenza A+B Rapid Molecular Urgent
GERALD Source: Nasal Swab
Specimen Description:
Legionella Urinary Antigen Urgent
GERALD Source: Urine
Specimen Description:
MRSA Screen Routine
GERALD Source: Nose
Specimen Description:
Strep pneumoniae Antigen Urgent
GERALD Source: Urine
Specimen Description:
Abnormal Lab Results
10/24/23
14:50
D-Dimer 1.74 H ug/mlFEU
(0.00-0.50)
Vital Signs
Initial and Last Documented VS:
Initial Vital Signs
Temp Pulse Resp BP Pulse Ox
98.0 F 66 18 155/62 87
10/24/23 13:55 10/24/23 13:55 10/24/23 13:55 10/24/23 13:55 10/24/23 13:55
Last Documented Vital Signs
Temp Pulse Resp BP Pulse Ox
98.0 F 67 30 160/64 95
10/24/23 13:55 10/24/23 18:15 10/24/23 18:15 10/24/23 18:00 10/24/23 18:15
MDM/Problems Addressed
MDM/Problems Addressed:
Patient presenting hypoxia, likely multifactorial, including acute on chronic anemia, along with exacerbation of underlying COPD. Hypoxia improved with supplemental oxygen.
Blood transfusion consent on the chart.
Lower extremity ultrasound will be obtained to evaluate for potential blood clots, as D-dimer is mildly elevated with history of chronic renal insufficiency.
Patient will be admitted for further evaluation and treatment.
*Critical Care Note
Total Time (30-74mins, 75-104mins- exclusive of procedures): Not Applicable
ED Attending Note
-
Portions of this chart may have been created with voice recognition software.� Occasional wrong word or��sound alike� substitutions may have occurred due to the inherent limitations of voice recognition software.
Discharge Plan
Departure
Patient Disposition: Admit
Date of Disposition: 10/24/23
Time of Disposition: 16:51
Admit to: IMU
Presentation/result/management discussed w/ accepting MD/DO: Hospitalist
Discharge Problem:
Hypoxia, COPD (chronic obstructive pulmonary disease), Anemia
Prescriptions:
No Action
rosuvastatin 5 MG tablet
5 mg PO QPM
nitroglycerin [Nitro-Dur] 0.6 mg/hr Patch 24 Hour
1 patch TRANSDERMAL DAILY Qty: 0
Patient Comments:
10/24/2023, pt. currently wearing a patch.
ferrous sulfate 325 mg (65 mg iron) Tablet
325 mg PO Q48H@1800 Qty: 0
finasteride 5 mg Tablet
5 mg PO QPM
febuxostat 40 mg Tablet
40 mg PO DAILY
Hold Instructions: Until renal function improve
amiodarone 200 mg tablet
200 mg PO DAILY Qty: 30 0RF
aspirin 81 mg Tablet,Delayed Release (Dr/Ec)
81 mg PO DAILY
metoprolol succinate 25 mg tablet extended release 24 hr
12.5 mg PO QPM
Hold Instructions: until Bp>140/90
guaifenesin 600 mg Tablet Extended Release 12hr
600 mg PO BID
Aranesp
1 dose SC Q3W
Patient Comments:
10/24/2023, pt. gets through [place].
ipratropium-albuterol 0.5 mg-3 mg(2.5 mg base)/3 mL Solution For Nebulization
3 ml INHALATION R BIDPRN PRN (Reason: sob)
budesonide 0.5 mg/2 mL Suspension For Nebulization
0.5 mg INHALATION R BIDPRN PRN (Reason: sob)
warfarin [Jantoven] 1 mg Tablet
3 mg PO QPM
Patient Comments:
10/24/2023, per pt., starting tomorrow (10/25/2023), he was instructed to take 1.5 mg daily.
amlodipine 10 mg tablet
10 mg PO QPM
vancomycin 125 mg capsule
125 mg PO DIRECTED Qty: 90 0RF
Patient Comments:
10/24/2023, pt. currently taking one capsule QPM for a week.
Rx Instructions:
QID x 10 days, TID x 1 wk, BID x 1 wk, QD x 1 wk, QOD x 1 wk, Q3d x 1 wk.
sodium bicarbonate 650 mg Tablet
650 mg PO TID Qty: 90 0RF
acetaminophen [Tylenol Extra Strength] 500 mg Tablet
500 mg PO DAILYPRN PRN (Reason: mild pain)
carboxymethylcellulose sodium [Refresh] 1 % Drops, Liquid Gel
1 drp BOTH EYES DAILYPRN PRN (Reason: dry eyes)
dapagliflozin propanediol [Farxiga] 5 mg Tablet
5 mg PO DAILY
Ojjaara 200 mg Tablet
200 mg PO QPM
Referrals:
Rob Santos MD [Family Provider] -
Interventions
Interventions:
*Risk Screen - Suicide Last Done: 10/24/23 15:18
*General Assessment Last Done: 10/24/23 15:16
*Neglect/Abuse Screening Last Done: 10/24/23 15:16
*ED COVID-19 Vaccine History Last Done: 10/24/23 13:55
ED- Cardiac Assessment Last Done: 10/24/23 15:18
ED- Pulmonary Assessment Last Done: 10/24/23 15:18
Discharge Date and Time
Print Language: TAJIK
[2023-10-24 15:20] LABS: D-Dimer 1.74 ug/mlFEU (0.00-0.50)
[2023-10-24] MEDS: DUONEB 3 ML INH ×2 (16:46→20:49)
--- NOTE | 2023-10-24 17:30 | HPS.HSE ---
Addendum entered and electronically signed by Heena Moreno MD 10/24/23 20:21:
Held Momelotinib.
Original Note:
Family Physician
-
Family Physician: Rob Santos
Chief Complaint
-
shortness of breath
History of Present Illness
83-year-old male past medical history of CLL, myelofibrosis, atrial fibrillation, CAD status post stents, HFpEF, COPD, hypertension, hypercholesterolemia, diabetes, CKD4, anemia, C. difficile presenting with shortness of breath for the past 2 days.
Shortness of breath occurs with exertion and not when he lies down flat. Patient was receiving outpatient Aranesp treatment at the infusion center when he was found to be severely hypoxic and sent to the emergency room. He denies any fevers or
chills. Denies chest pain except mild discomfort during cough. Denies headaches. Denies dizziness. Denies nausea or vomiting. His diarrhea from recent C. difficile has resolved. Denies any swallowing difficulties.
He has been eating very poorly due to recent C. difficile since discharge he has gained 10 pounds.
Patient recently admitted from 09/22 to 09/26 for C. difficile colitis and GER treated with oral vancomycin over 45-day taper.
He recently started a new medication for myelofibrosis Ojjaara a few months ago.
Medical History
Past Medical History
Past Medical History: Reports Other ( CLL, myelofibrosis, atrial fibrillation, CAD status post stents, HFpEF, COPD, hypertension, hypercholesterolemia, diabetes, CKD4, anemia, C. difficile )
Past Surgical History: Reports Other (Cardiac (Stents X2))
Social History
Tobacco: Former Smoker
Alcohol: None
Drug: None
Family History
Family History: Not pertinent
Allergies / Home Medications
Allergies reflects when Allergies were last updated in [facility].
Home Medications with original date entered in [facility]
Allergy/Medication List:
Allergies
Allergy/AdvReac Type Severity Reaction Status Date / Time
atorvastatin Allergy ? M-S pain Verified 10/24/23 14:01
immune globulin,gamma (IgG) Allergy Anaphylaxis Verified 10/24/23 14:01
human
prednisone Allergy Unknown Verified 10/24/23 14:01
Home Medications
rosuvastatin 5 mg tablet 5 mg PO QPM High Cholesterol 07/09/19
febuxostat 40 mg tablet 40 mg PO DAILY uric acid 04/29/23
ferrous sulfate 325 mg (65 mg iron) tablet 325 mg PO Q48H@1800 Supplement ##0 04/29/23
finasteride 5 mg tablet 5 mg PO QPM BPH 04/29/23
nitroglycerin 0.6 mg/hr transdermal 24 hour patch (Nitro-Dur) 1 patch transdermal DAILY Heart Disease/Condition ##0 04/29/23
amiodarone 200 mg tablet 200 mg PO DAILY #30 tabs 06/13/23
aspirin 81 mg tablet,delayed release 81 mg PO DAILY Blood Clot Prevention/Tx 06/20/23
metoprolol succinate 25 mg tablet,extended release 24 hr 12.5 mg PO QPM Heart Disease/Condition 06/20/23
nitroglycerin 0.3 mg sublingual tablet 0.3 mg sublingual [id number] PRN chest pain 06/20/23
guaifenesin 600 mg tablet, extended release 12 hr 600 mg PO BID Neurological Condition 09/01/23
momelotinib 200 mg tablet (Ojjaara) 200 mg PO QPM Cancer 09/01/23
Aranesp 1 dose SC Q3W anemia 09/23/23
amlodipine 10 mg tablet 10 mg PO QPM Blood Pressure 09/23/23
budesonide 0.5 mg/2 mL suspension for nebulization 0.5 mg inhalation R BIDPRN PRN sob 09/23/23
ipratropium 0.5 mg-albuterol 3 mg (2.5 mg base)/3 mL nebulization soln 3 ml inhalation R BIDPRN PRN sob 09/23/23
warfarin 1 mg tablet (Jantoven) 1 mg PO QPM Blood Clot Prevention/Tx 09/23/23
warfarin 2.5 mg tablet (Jantoven) 2.5 mg PO QPM Blood Clot Prevention/Tx 09/23/23
vancomycin 125 mg capsule 125 mg PO DIRECTED #90 caps 09/26/23
sodium bicarbonate 650 mg tablet 650 mg PO TID #90 tabs 09/27/23
Review of Systems
-
History Source: Patient
A 12 point ROS was completed and negative except as noted: Yes
Constitutional: Reports No Symptoms
EENT: Reports No Symptoms
Respiratory: Reports See HPI
Cardiac: Reports See HPI
Abdomen/GI: Reports No Symptoms
: Reports No Symptoms
Musculoskeletal: Reports No Symptoms
Skin: Reports No Symptoms
Neurological: Reports No Symptoms
Endocrine: Reports No Symptoms
Hematologic/Lymphatic: Reports No Symptoms
Psych: Reports No Symptoms
Physical Exam
Vital Signs
Vital Signs
Temp Pulse Resp BP Pulse Ox
98.0 F 65 21 162/65 96
10/24/23 13:55 10/24/23 15:30 10/24/23 15:30 10/24/23 15:00 10/24/23 15:30
Physical Exam
General: Well Developed, Well Nourished and No Apparent Distress
HEENT: NormoCephalic, Moist mucous membranes and Atraumatic
Respiratory: Clear
Cardiac: S1/S2 and Regular Rhythm; No Murmur or Rub
GI: Soft, Non Tender, Non Distended and Normal Bowel Sounds; No Organomegaly
Rectal: Deferred by Provider
Musculoskeletal: No Clubbing, No Cyanosis and No Edema
Skin: No Rash
Neuro: Nonfocal/grossly intact
Data Reviewed
-
Lab Data: Labs Reviewed by me
Old Records: Reviewed
Impression/Plan
-
IMPRESSION:
PLAN:
# Hypoxic respiratory failure secondary to potential hospital-acquired pneumonia versus interstitial pneumonitis in the setting of Momelotinib, less likely heart failure
-diffuse bilateral crackles on exam
-Chest x-ray appears to show bibasilar infiltrates worse on the right side
-Check cardiac BNP, procalcitonin
-D-dimer 1.74
-Venous ultrasound shows no evidence of DVT
-PE unlikely as patient on Coumadin and INR 3.79
-Check blood cultures
-Check sputum culture
-Check COVID, influenza
-Check strep antigen, Legionella, MRSA
-Vancomycin/Zosyn
-Patient requiring mid flow
History of CLL/myelofibrosis
-Patient on Momelotinib
Chronic anemia
-Continue ferrous sulfate
-Hemoglobin 8.2
-Blood consent signed
-Patient require blood transfusion if hemoglobin under 8
Paroxysmal atrial fibrillation
-Continue warfarin
-Continue amiodarone
CAD status post stents
-Continue aspirin
Chronic HFpEF
COPD
-Continue inhalers
Essential hypertension
-Continue metoprolol, amlodipine
Hypercholesterolemia
-Continue statin
Type 2 diabetes
CKD 4
-Renal function at baseline
-Continue sodium bicarb
Recent C. difficile colitis
-Continue oral vancomycin
BPH
-Continue finasteride
Full code
DVT prophylaxis�Coumadin
Cardiac/renal diet
[2023-10-24 18:59] LABS: APTT 37.6 Sec (23.4-35.0); INR 4.21; PT 41.3 Sec (11.4-14.6)
[2023-10-24 19:03] LABS: COVID-19 Antigen Negative (Negative)
[2023-10-24 19:08] LABS: NT-proBNP 26300 pg/ml
--- NOTE | 2023-10-24 19:23 | PHA.VAN.IN ---
Assessment
- Assessment
Renal Function: Appears similar to baseline (08/01/23 BASELINE SCR: 2.5)
Concomitant Antimicrobials: ZOSYN
- Previous Dosing Experience
Previous Regimen: DOSING BY RANDOM LEVELS
Date of Regimen: 06/23/23
Provided Trough of: UNKNOWN
Provided AUC of: UNKNOWN
Patient's SCR is: Similar to previous dosing experience (06/23/23 SCR = 2.7)
Patient's weight is: Elevated compared to previous dosing experience (06/23/23 WT = 72.8 KG)
Plan
- Plan
Initial / Loading Dose: 1750MG
Maintenance Regimen: DOSING BY RANDOM LEVELS
Monitoring: RANDOM VANCOMYCIN LEVEL 10/25/23 AM
Pharmacokinetics Vancomycin I
- -
Patient Age: 83
Patient Sex: Male
Vancomycin Day #: 1
Indication: Pulmonary/Respiratory
Requesting Provider: BUD
Height / Weight:
Height 5 ft 10 in
Actual Weight 75.8 kg
Pertinent Past Medical History: CLL, DM
- Vital Signs / Lab Results
Temp Pulse Resp BP Pulse Ox
98.0 F 67 30 160/64 95
10/24/23 13:55 10/24/23 18:15 10/24/23 18:15 10/24/23 18:00 10/24/23 18:15
Microbiology Results
10/24/23 18:26 Influenza Types A & B (YOBANY) - Final
Nasal Swab Negative for Influenza A & B, NAAT
Negative results must be combined with clinical observations
and patient history.
Nucleic Acid Amplification test (NAAT)performed on the
[employer] platform.
--- NOTE | 2023-10-24 20:04 | PTCARENOTE ---
Addendum entered by Karthik Jones RN 10/24/23 20:47:
Shortly after admission, pt became sob, tachypnea, and coughing up bloody sputum. Respirations 30-40s. SHIFT MANAGER Hephziba made aware. RT made aware and will give Tx. Support provided to pt. Abx recived delayed; infusing now. CBG checked. Pt has not drank
or intake anything. Call gibbons, urinal and tray table within reach.
Original Note:
Patient arrived to room 3342, oriented to room and use of call gibbons. Sp02 86-87% Midflow increased to 15L with humidification. Sp02 90-93% when pt not talking. CHG bath done. Warm blankets applied. Pt denies any pain. Tele monitor applied showing
NSR. Call gibbons and tray table within reach.
[2023-10-24] MEDS: ZOSYN 50 IV (20:21)
[2023-10-24 20:48] LABS: Glucose - Point of Care 117 mg/dl (70-99)
[2023-10-24] MEDS: VANCOCIN 535 MG IV (20:58)
[2023-10-24] MEDS: MORPHINE SULFATE 1 MG IV (21:14)
[2023-10-24] MEDS: LASIX 20 MG IV ×2 (21:23→22:34)
[2023-10-24] MEDS: FIRVANQ PO (21:33)
[2023-10-24] MEDS: SODIUM BICARBONATE PO (21:33)
[2023-10-24 21:34] LABS: B.E. -2.6 mmol/L; O2 Saturation % 92.1 % (94-98); PCO2 50 mmHg (35-48); PO2 66 mmHg (83-108); pH 7.29 (7.35-7.45)
--- NOTE | 2023-10-24 21:35 | PTCARENOTE ---
Addendum entered by Karthik Jones RN 10/24/23 21:45:
GANG HEAD SAW OPERATOR confirmed with patient that he is a FULL CODE. Transfer to ICU orders received.
Original Note:
Patient continues to be hypoxic. GANG HEAD SAW OPERATOR made aware again and en route to see pt. Lasix 20mg and morphine 1mg IV orders received and administered per AUG. RT placed HFNC with NRB. Sp02 87-90%, respirations 35-40s. ABG done.
--- NOTE | 2023-10-24 21:58 | W.PN.UPDATE ---
Update Note
Progress Note Update
RN notified EMBEDDED LINUX ENGINEER, patient hypoxic and on Mid flow max 15 sat 85-87% RR 30's-40's with some bloody sputum. Neb tx given, continuos to desat, patient seen and evaluated, appears tachypneic and SOB at rest, denies chest pain, HOB elevated, 200/81, 89 %,
40's, 94, High flow ordered, IV Lasix 20mg, Morphine 1mg ordered, ABG ordered, Bladder scan 50 cc noted. ABG results noted, Dr. Moreno made aware, Patient is Full code, agreed to stay full code wants interventions done. Discussed with
Josh, will transfer patient to ICU for higher care, Dr. Moreno will discuss with ICU EMBEDDED LINUX ENGINEER Evan.
--- NOTE | 2023-10-24 22:03 | W.PN.UPDATE ---
Update Note
Progress Note Update
Was notified by house SIGN DESIGNER the patient was become increasingly hypoxemic and was upgraded from mid flow to nonrebreather and later high flow. Patient extremely tachypneic. Patient to be upgraded to ICU. Cardiac BNP is 26,000. ABG shows hypoxemic
respiratory failure. Ordered 40 IV Lasix to treat CHF component of hypoxia. Suspect interstitial pneumonitis given worsening clinical status so starting dexamethasone. Pulmonary consulted. Patient would like to be intubated if necessary.
--- NOTE | 2023-10-24 22:08 | PTCARENOTE ---
Report given to FEI Cai. Patient transferred to ICU room 3365 on HFNC & NRB. All belongings brought with pt. Unable to complete admission questions d/t respiratory status.
[2023-10-24] MEDS: DECADRON 6 MG IV (22:32)
[2023-10-24] MEDS: DECADRON IV (22:38)
--- NOTE | 2023-10-24 23:00 | PTCARENOTE ---
report received. pt transferred from imu to [facility]. cnc operator programmer at bedside. pt aaox3. increased/labored work of breathing noted. NIV applied w/ setting 15/5/70%. Vanco remains infusing. 20mg iv lasix and 6mg lasix given. VSS. nsr on monitor. call gibbons at
bedside. Will monitor.
[2023-10-24 23:47] LABS: Troponin I 0.058 ng/ml
[2023-10-25] VITALS (17 sets, daily range): BP systolic 123–168; BP diastolic 53–105; PULSE 2–80; BMI 22.1
[2023-10-25 00:06] LABS: Glucose - Point of Care 160 mg/dl (70-99)
[2023-10-25] MEDS: NOVOLOG FLEXPEN-HIGH RESISTANCE 2 UNITS SC ×3 (01:02→10:48)
[2023-10-25] MEDS: ZOSYN 50 IV ×4 (01:02→20:32)
--- NOTE | 2023-10-25 03:00 | PTCARENOTE ---
pt tolerated NIV. no events overnight. vss. nsr. Will monitor
[2023-10-25 06:21] LABS: % Basophils 0.5 % (0-2); % Immature Granulocytes 2.3 % (0-0.5); % Lymphocytes 2.3 % (20.5-51.1); % Neutrophils 93.9 % (42.2-75.2); Absolute Basophils 0.1 10^3/uL (0-0.2); Absolute Immature Granulocytes 0.5 10^3/uL (0-0.05); Absolute Lymphocytes 0.5 10^3/uL (1.2-3.4); Absolute Monocytes 0.2 10^3/uL (0.1-0.6); Absolute Neutrophils 20.8 10^3/uL (1.4-6.5); Hematocrit 23.1 % (39.0-52.0); Hemoglobin 7.2 g/dL (13.0-18.0); Mean Corp Hgb Conc. 31.2 g/dL (33.0-37.0); Mean Corpuscular Hgb 28.6 pg (27.0-31.0); Mean Corpuscular Volume 91.7 fL (80.0-94.0); Mean Platelet Volume 10.5 fL (7.4-10.4); Nucleated Red Blood Cells % 0.1 % (-); Platelet Count 380 10^3/uL (130-400); Red Blood Cell Count 2.52 10^6/uL (4.70-6.10); White Blood Cell Count 22.1 10^3/uL (4.8-10.8)
[2023-10-25 06:40] LABS: Glucose - Point of Care 163 mg/dl (70-99)
[2023-10-25 06:44] LABS: ALT (SGPT) 13 U/L (0-50); AST (SGOT) 22 U/L (17-59); Alkaline Phosphatase 79 U/L (38-126); Blood Urea Nitrogen 35 mg/dl (9-20); Calcium 8.5 mg/dl (8.4-10.2); Carbon Dioxide 21 mmol/L (22-30); Chloride 109 mmol/L (98-107); Estimated Creatinine Clearance 21 ml/min; Glucose 132 mg/dl (70-99); Potassium 4.6 mmol/L (3.5-5.1); Sodium 141 mmol/L (135-145); Total Bilirubin 0.9 mg/dl (0.2-1.3); Total Protein 5.2 g/dl (6.3-8.2); Troponin I 0.144 ng/ml; eGFR 22.82
[2023-10-25 06:48] LABS: Vancomycin Random 19.4 ug/ml
--- NOTE | 2023-10-25 08:00 | PTCARENOTE ---
PT received on NIV, PT AAOX3, appears anxious at times, HICKS, NSR with BBBC, +pulses Doppler, trace edema, NIV 15/5 40%, Tvol 757, RR 30, PIP 16, O2 sat 98%, B/L BS diminished, tachypneic, coarse with crackles, abdomen soft NT +BS, condom cath
draining clear yellow urine, right AC INT and right FA INT both flushed and patent, PT very concerned about his morning pills, explained that we will wait to doctor is in, determine where we are at and if it is feasible to get his meds at this time,
explained and updated at bedside
[2023-10-25] MEDS: NITRO-DUR 0.599999999999999978 MG TRANSDERM (08:17)
--- NOTE | 2023-10-25 08:26 | CON.INTV ---
Consultation
Consultation Request
Date/Time Consultation Requested: 10/24/2023 - 2246
Date/Time Consultation Performed: 10/25/2023 - 809
Requesting Provider: PADMA Magallanes
Performing Provider: Levar Galindo MD
Reason for Consultation: Respiratory distress
Medical History
-
Chief Complaint: SOB
History of Present Illness:
83-year-old male former tobacco smoker with past medical history of asthma/COPD, gout, CLL, history of PCV, mild restrictive lung disease, ABELARDO, HFpEF, A-fib s/p multiple DCCV on chronic amiodarone and warfarin, CAD with history of OK s/p coronary
stents and myelofibrosis who presents with low oxygen level. 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 He also endorses SOB over the last several days with
activity. In triage she was saturating 87% on room air, BP 135/62, pulse rate 66 and respiratory rate 18. He was afebrile to 98 �F. Of note he was recently hospitalized here from 09/22 � 09/27/2023 due to C. difficile colitis with GER. Labs
showed Hb 8.1, platelet 4 3, INR 3.79, proBNP 26,300, and TSH 4.93. COVID antigen was negative. Blood cultures were collected. CXR showed bilateral airspace/interstitial infiltrates suspicious for diffuse pneumonia. He was given a DuoNeb
treatment in the ER. He was initially admitted to the IMU, however due to worsening respiratory distress he was transferred to the ICU, started on BiPAP and now finished goods inspector consulted for additional management/recommendations.
Of note patient follows with us in the [facility] office with Dr. Camara, last office visit on 11/22/2022. He has a history of lower lobe bronchiectasis, chronic bronchitis with asthma/COPD, mild restrictive lung disease and chronic rhinitis with sleep
apnea on auto BiPAP. His last full PFT was in November 2022 which was negative for an obstructive defect with an FEV1/FVC of 71, TLC 79, vital capacity 90%, RV 61%, and a very severe diffusion capacity (DLCO: 36%). On his past PFTs ([id number]), there
was mild as moderate COPD seen, and his DLco was less severe at that time.
Pt seen and evaluated this AM. He is on 14L/min midflow. BP 168/82, HR 83 and Spo2 97% on 14L/min. He is starting to feel better. at bedside - I answered all her questions. The patient says that he has been having a worsening cough over
the last several days. His SOB progressively got worse over the last few days and that is really why he is here. He does use the vest at home but he has been not using it over the last several days�weeks. He has been compliant with his BiPAP.
PMHx: CLL, myelofibrosis, A-fib s/p multiple DCCV on chronic amiodarone and warfarin, CAD with history of OK (08/2015) s/p stent to LAD, HFpEF, COPD, hypertension, hypercholesterolemia, DM type II, CKD, anemia and history of C. difficile, history of
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
gout, BPH
PSHx: Mohs surgery (left middle finger), bone marrow biopsy, prostate biopsy, bilateral cataract surgery, coronary artery stenting, pilonidal cyst excision
Past Medical History
Past Medical History: Other (Above as per HPI)
Past Surgical History: Other (Above as per HPI)
Social History
Tobacco: Former Smoker (Quit smoking in his 20s)
Alcohol: None
Drug: None
Family History
Family History: CAD (Mother: OK) and Diabetes (Paternal grandfather: Diabetes)
Allergies / Home Medications
Allergies
Allergy/AdvReac Type Severity Reaction Status Date / Time
atorvastatin Allergy ? M-S pain Verified 10/24/23 14:01
immune globulin,gamma (IgG) Allergy Anaphylaxis Verified 10/24/23 14:01
human
prednisone Allergy Unknown Verified 10/24/23 14:01
Home Medications
�Medication �Instructions �Recorded �Confirmed �Last Taken �Type
rosuvastatin 5 mg tablet 5 mg PO QPM High Cholesterol 07/09/19 10/24/23 10/23/23 History
febuxostat 40 mg tablet 40 mg PO DAILY uric acid 04/29/23 10/24/23 10/24/23 History
ferrous sulfate 325 mg (65 mg 325 mg PO Q48H@1800 Supplement ##0 04/29/23 10/24/23 10/23/23 History
iron) tablet
finasteride 5 mg tablet 5 mg PO QPM BPH 04/29/23 10/24/23 10/23/23 History
nitroglycerin 0.6 mg/hr 1 patch transdermal DAILY Heart 04/29/23 10/24/23 10/24/23 History
transdermal 24 hour patch Disease/Condition ##0
(Nitro-Dur)
amiodarone 200 mg tablet 200 mg PO DAILY #30 tabs 06/13/23 10/24/23 10/24/23 Rx
aspirin 81 mg tablet,delayed 81 mg PO DAILY Blood Clot 06/20/23 10/24/23 10/24/23 History
release Prevention/Tx
metoprolol succinate 25 mg 12.5 mg PO QPM Heart 06/20/23 10/24/23 10/23/23 History
tablet,extended release 24 hr Disease/Condition
guaifenesin 600 mg tablet, 600 mg PO BID Neurological 09/01/23 10/24/23 10/24/23 History
extended release 12 hr Condition
Aranesp 1 dose SC Q3W anemia 09/23/23 10/24/23 10/24/23 History
amlodipine 10 mg tablet 10 mg PO QPM Blood Pressure 09/23/23 10/24/23 09/22/23 History
budesonide 0.5 mg/2 mL suspension 0.5 mg inhalation R BIDPRN PRN sob 09/23/23 10/24/23 Unknown History
for nebulization
ipratropium 0.5 mg-albuterol 3 mg 3 ml inhalation R BIDPRN PRN sob 09/23/23 10/24/23 Unknown History
(2.5 mg base)/3 mL nebulization
soln
warfarin 1 mg tablet (Jantoven) 3 mg PO QPM Blood Clot 09/23/23 10/24/23 10/23/23 History
Prevention/Tx
vancomycin 125 mg capsule 125 mg PO DIRECTED #90 caps 09/26/23 10/24/23 10/23/23 Rx
sodium bicarbonate 650 mg tablet 650 mg PO TID #90 tabs 09/27/23 10/24/23 10/24/23 Rx
acetaminophen 500 mg tablet 500 mg PO DAILYPRN PRN mild pain 10/24/23 10/24/23 Unknown History
(Tylenol Extra Strength)
carboxymethylcellulose sodium 1 % 1 drp BOTH EYES DAILYPRN PRN dry 10/24/23 10/24/23 Unknown History
eye liquid gel drops eyes
dapagliflozin propanediol 5 mg 5 mg PO DAILY Diabetes 10/24/23 10/24/23 10/24/23 History
tablet (Farxiga)
momelotinib 200 mg tablet (Ojjaara) 200 mg PO QPM Myelofibrosis 10/24/23 10/24/23 10/23/23 History
Review of Systems
-
History Source: Patient
All other systems: Negative unless noted
Vitals / Labs / Diagnostic Testing
Vital Signs
Temp Pulse Resp BP Pulse Ox
97.9 F 79 28 166/59 93
10/25/23 07:50 10/25/23 10:03 10/25/23 09:30 10/25/23 10:03 10/25/23 10:04
Lab Data
10/25/23 05:57
10/25/23 05:57
Laboratory Results
10/24/23 10/24/23
18:26 21:25
PT 41.3 H
INR 4.21
APTT 37.6 H
pH 7.29 L
pCO2 50 H
pO2 66 L
HCO3 24.0
O2 Delivery Level
Microbiology
10/24/23 18:26 Urine Legionella Urinary Antigen - Final
Negative for Legionella pneumophila Serogroup 1 antigen.
A negative result does not rule out the possiblity of
Legionella infection due to other serogroups or species of
Legionella. Clinical correlation is recommended.
10/24/23 18:26 Urine Streptococcus pneumoniae Antigen (M - Final
Negative for Streptococcus pneumoniae antigen.
A negative result does not exclude infection with
Streptococcus pneumoniae. Clinical correlation is
recommended.
10/24/23 18:26 Nasal Swab Influenza Types A & B (YOBANY) - Final
Negative for Influenza A & B, NAAT
Negative results must be combined with clinical observations
and patient history.
Nucleic Acid Amplification test (NAAT)performed on the
[employer] platform.
Diagnostic Testing:
Physical Exam
-
HEENT: Normocephalic and Anicteric
Cardiovascular: S1/S2 and Peripheral Edema (Negative)
Respiratory: Wheeze (Negative), Rales (Bibasilar), Rhonchi (Negative) and Accessory Resp Muscle Use (Negative)
GI: Soft, Non Distended, Non Tender and Normal Bowel Sounds
Neurology: AO x 3
Skin: Warm and Dry
General: Respiratory Distress (Negative) and Comfortable
Assessment
-
Assessment: 83-year-old male former tobacco smoker with past medical history of asthma/COPD, gout, CLL, history of PCV, mild restrictive lung disease, ABELARDO, HFpEF, A-fib s/p multiple DCCV on chronic amiodarone and warfarin, CAD with history of OK s/p
coronary stents and myelofibrosis who presents with low oxygen level. 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 He also endorses SOB over the last several
days with activity. In triage she was saturating 87% on room air, BP 135/62, pulse rate 66 and respiratory rate 18. He was afebrile to 98 �F. Of note he was recently hospitalized here from 09/22ue to C. difficile colitis with GER.
Labs showed Hb 8.1, platelet 4 3, INR 3.79, proBNP 26,300, and TSH 4.93. COVID antigen was negative. Blood cultures were collected. CXR showed bilateral airspace/interstitial infiltrates suspicious for diffuse pneumonia. He was given a DuoNeb
treatment in the ER. He was initially admitted to the IMU, however due to worsening respiratory distress he was transferred to the ICU, started on BiPAP and now finished goods inspector consulted for additional management/recommendations.
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
IVIG, history of gout, BPH
Impression:
#Acute respiratory failure with hypoxia
#Bilateral infiltrates
#Acute on chronic anemia
#Recent CDI
#HTN
#Hx of asthma/copd not in an acute exacerbation
#Hx of ABELARDO on auto-BiPAP
Plan:
- His CXR shows bilateral, watson-hilar opacification, and this is concerning for an acute inflammatory process, however his proBNP is highly elevated as well; does not look like a typical pneumonia but given his use of momelotinib, he is
immunocompromised and he should be covered with antibiotics for now; consider ID consult; DAH also on differential
- Continue systemic steroids and wean as tolerated
- If his O2 requirements do not improve then he will need a bronch with BAL with sequential aliquots of rule out DAH, and also to send for micro analysis
- Continue broad spectrum ABx - currently on Zosyn and IV vanco
- Check sputum Cx, follow up blood Cx; check Fungitell
- Continue PO vanco and monitor his diarrhea
- Maintain net negative fluid balance as tolerated
- Maintain SpO2 >90-94% and wean down midflow as tolerated
- Hold his momelotinib
- prn nebulized bronchodilators; he was previously was symbicort as an outpatient but was non-compliant; continue atrovent + xopenex BID with budesonide
- Continue vest therapy as he uses this at home given his Hx of bronchiectasis
- Trend Hb and transfuse if needed to keep Hb>7g/dL, plt>20k
- Maintain MAP>65
- Replete electrolytes with K>4, Mg>2
- Maintain euglycemia with goal BG 140-180
- Incentive spirometer encouraged
- DVT ppx
Critical care statement: A total of 40 minutes of critical care time was provided for this patient today. This includes management of unstable vital signs, evaluation of the patient at bedside, reviewing the patient's pertinent medical records
including radiographs, microbiology, laboratory evaluations, and discussion with primary team, consultants, pharmacy, nutrition, physical therapy, case management, charge nurse, critical care nursing, and respiratory therapy.
Data:
CXR 10-24-2023:
The heart size is within the limits of normal.
There are bilateral airspace and interstitial infiltrates, right greater than left, consistent with diffuse pneumonia.
Regional skeleton intact.
[2023-10-25 09:36] LABS: Free T4 1.71 ng/dl (0.78-2.19)
[2023-10-25] MEDS: SODIUM BICARBONATE 650 MG PO ×3 (10:03→22:49)
[2023-10-25] MEDS: FARXIGA 5 MG PO (10:03)
[2023-10-25] MEDS: PACERONE 200 MG PO (10:03)
[2023-10-25] MEDS: ULORIC 40 MG PO (10:03)
[2023-10-25] MEDS: MUCINEX 600 MG PO ×2 (10:03→20:32)
[2023-10-25] MEDS: ASPIR LOW (ENTERIC COATED) 81 MG PO (10:03)
--- NOTE | 2023-10-25 10:18 | CM ---
CM following re: discharge planning.
Reviewed pt's chart, met with pt and pt's spouse at bedside.
Pt is an 83 year old male, admitted with primary dx of pneumonitis. Pt currently requires bi-pap treatment with setting of 15/5 with transition to 10 L midflow NC of O2, continue supportive care.
Pt lives with spouse 2SH, 2 steps to enter, has 2 supportive children. 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 Pt has no home Oxygen.
PT and OT will evaluate the pt to determine a level of care at discharge.
D/C plan: pt feels he will be able to return back home with services. PT/OT to confirm.
CM will follow with discharge plan updates as hospitalization progresses
--- NOTE | 2023-10-25 10:18 | PHA.VAN.FU ---
Vancomycin Assessment / Plan
- Assessment
Renal Function: SCR Increasing (near baseline)
WBC's are: Trending Up
In the past 24 hrs, patient has been: Afebrile
Concomitant Antimicrobials: piperacillin/tazobactam; PO vancomycin
- Assessment - Therapeutic Drug Monitoring
Random Level: 19.4 ( 8 hours post 1750 mg dose)
- Dosing Plan
Continue: dose by random level ( CKD4)
Dosing by Level: Hold off on dosing today (level this AM close to 20)
- Monitoring Plan
Random Level: 10/26/23 0600
- Follow Up
Pharmacy will continue to follow.
Vancomycin Follow UP
- -
Patient Age: 83
Patient Sex: Male
Vancomycin Day #: 2
Indication: Pulmonary/Respiratory
Requesting Provider: BUD
Height / Weight:
Height 5 ft 10 in
Actual Weight 70 kg
Pertinent Past Medical History: CLL, DM
- Vital Signs / Lab Results
Temp Pulse Resp BP Pulse Ox
97.9 F 79 28 166/59 93
10/25/23 07:50 10/25/23 10:03 10/25/23 09:30 10/25/23 10:03 10/25/23 10:04
Lab Results - Hematology
10/25/23
05:57
WBC 22.1 H
Lab Results - Chemistry
10/25/23
05:57
BUN 35 H
Creatinine 2.7 H
Estimated Creat Clear 21
Albumin 3.0 L
Microbiology Results
10/24/23 18:26 Legionella Urinary Antigen - Final
Urine Negative for Legionella pneumophila Serogroup 1 antigen.
A negative result does not rule out the possiblity of
Legionella infection due to other serogroups or species of
Legionella. Clinical correlation is recommended.
Streptococcus pneumoniae Antigen (M - Final
Negative for Streptococcus pneumoniae antigen.
A negative result does not exclude infection with
Streptococcus pneumoniae. Clinical correlation is
recommended.
10/24/23 18:26 Influenza Types A & B (YOBANY) - Final
Nasal Swab Negative for Influenza A & B, NAAT
Negative results must be combined with clinical observations
and patient history.
Nucleic Acid Amplification test (NAAT)performed on the
[employer] platform.
Therapeutic Drug Monitoring
Random Vancomycin 19.4 ug/ml 10/25/23 05:56
--- NOTE | 2023-10-25 10:21 | PTCARENOTE ---
Vitals between [id number] did not transfer
--- NOTE | 2023-10-25 10:21 | PTCARENOTE ---
As per Hospitalist, trial PT off NIV, PT placed on Midflow 10 L, saturations dropped to 87% within less than 5 mins, O2 increased to 14 L, O2 saturation 91-97%,
[2023-10-25] MEDS: DECADRON 6 MG IV ×2 (10:48→22:48)
[2023-10-25 10:56] LABS: Glucose - Point of Care 157 mg/dl (70-99)
--- NOTE | 2023-10-25 11:07 | PTCARENOTE ---
#25 Condom cath fell off, PT received full CHG bath, linen change, repositioned for comfort
[2023-10-25] MEDS: LASIX 40 MG IV (11:37)
--- NOTE | 2023-10-25 11:59 | W.PN.HOSP.TC ---
Today's Communication/Plan
-
iv lasix
echo
empiric abx
f/u cultures
wean decadron as tolerated
Assessment / Plan
Assessment / Plan
Physical Exam
General: Well Developed, Well Nourished and midly tachypneic on NIV
HEENT: NormoCephalic, Moist mucous membranes and Atraumatic
Respiratory: Clear
Cardiac: S1/S2 and Regular Rhythm; No Murmur or Rub
GI: Soft, Non Tender, Non Distended and Normal Bowel Sounds; No Organomegaly
Rectal: Deferred by Provider
Musculoskeletal: No Clubbing, No Cyanosis and No Edema
Skin: No Rash
Neuro: Nonfocal/grossly intact
PLAN:
# Acute Hypoxic respiratory failure
-2/2 to pneumonia + Acute HFrEF v Interstitial Pneumonitis in setting of Momelotinib
-PE unlikely as patient on Coumadin and supratherapeutic
-Weaned back to Midflow, maintain O2 >92%
-Check blood cultures
-Check sputum culture
-COVID, influenza negative
-Check strep antigen, Legionella, MRSA
-Vancomycin/Zosyn
-Started on empiric steroids - wean as tolerated
-IV lasix
#Sepsis
-2/2 to above - possible pneumonia
-cont empiric abx, f/ cultures - treatment as stated above
#Acute HFref
-F/u ECHO
-Lasix
-monitor Is&Os, daily weights
#Nonischemic myocardial injury
-Most likely secondary to acute HFrEF
-Trend utnil peak troponins
History of CLL/myelofibrosis
-Patient on Momelotinib
Chronic anemia
-Continue ferrous sulfate
-Blood consent signed
-maintain HgB over 7
Paroxysmal atrial fibrillation
Supratherapeutic INR
-Holding Warfarin
-Continue amiodarone
CAD status post stents
-Continue aspirin
Chronic HFpEF
COPD
-Continue inhalers
Essential hypertension
-Continue metoprolol, amlodipine
Hypercholesterolemia
-Continue statin
Type 2 diabetes
CKD 4
-Renal function at baseline
-Continue sodium bicarb
Recent C. difficile colitis
-Continue oral vancomycin
BPH
-Continue finasteride
Full code
DVT prophylaxis�Coumadin
Cardiac/renal diet
Anticipated Discharge: Within 24 hours
Subjective/Interval History
-
Date of Service: October 25, 2023
on NIV, will attempt if he can tolerate PO
Objective Data
-
Labs:
Laboratory Results
10/25/23
05:57
WBC 22.1 H
Hgb 7.2 L
Hct 23.1 L
Plt Count 380
Sodium 141
Potassium 4.6
Chloride 109 H
Carbon Dioxide 21 L
BUN 35 H
Creatinine 2.7 H
Glucose 132 H
Calcium 8.5
Total Bilirubin 0.9
AST 22
ALT 13
Alkaline Phosphatase 79
Vital Signs:
Vital Signs
Temp Pulse Resp BP Pulse Ox
97.7 F 77 41 168/82 98
10/25/23 11:18 10/25/23 11:37 10/25/23 11:15 10/25/23 11:37 10/25/23 11:15
I&O
10/24/23 10/25/23 10/26/23
06:59 06:59 06:59
Intake Total 50 / 50 530 / 530
Output Total 450 / 450
Balance -400 / -400 530 / 530
Review of Systems
-
History Source: Patient
All other systems: Not reviewed unless documented
Data Reviewed
-
Diagnostic Radiology: Image personally visualized and interpreted and Report Reviewed by me
Labs: Labs Reviewed by me
--- NOTE | 2023-10-25 12:39 | PTCARENOTE ---
Assist x2 OOB to ge PT with ease ambulation, steady gait, O2 turned to 12 L O2 sat 100%, assessment remains unchanged, call gibbons in reach, family at chair side
[2023-10-25 14:52] LABS: Magnesium 2.3 mg/dl (1.6-2.3)
[2023-10-25 15:12] LABS: Troponin I 0.077 ng/ml
[2023-10-25] MEDS: FIRVANQ 125 MG PO (16:33)
[2023-10-25] MEDS: NORVASC 10 MG PO (16:34)
[2023-10-25] MEDS: CRESTOR 5 MG PO (16:35)
[2023-10-25] MEDS: TOPROL XL 12.5 MG PO (16:35)
[2023-10-25] MEDS: FEOSOL 325 MG PO (16:35)
[2023-10-25] MEDS: PROSCAR 5 MG PO (16:35)
[2023-10-25 16:36] LABS: Glucose - Point of Care 322 mg/dl (70-99)
[2023-10-25] MEDS: NOVOLOG FLEXPEN-HIGH RESISTANCE 10 UNITS SC (16:36)
--- NOTE | 2023-10-25 17:53 | PTCARENOTE ---
PT assisted back to bed, tolerated 5+ hours OOB in chair, O2 down to 9L MidFlow, O2 saturation 97%, no distress noted, assessment remains unchanged
[2023-10-25] MEDS: PULMICORT 0.5 MG INH (19:41)
[2023-10-25] MEDS: DUONEB 3 ML INH (19:41)
--- NOTE | 2023-10-25 20:00 | PTCARENOTE ---
Received patient AAOx3, following commands, denying pain. Moves all extremities, one person assist. Helped to commode and patient had a very small bowel movement. Sheets changed. Normal sinus, 60s-70s. BP stable, 120s-130s/50s-70s. Palpable radial
pulses bilaterally, weak palpable pedal pulses bilaterally. Afebrile. 98% on 9 liters midflow. Lung sounds coarse, diminished. Abdomen soft, round, good appetite. Positive bowel sounds. #[address] draining yellow urine. Skin intact, 2
PIVs on right arm WNL, patent. Call gibbons within reach. Patient asking questions regarding his coumadin, informed INR is high and coumadin is being held.
[2023-10-25] MEDS: NOVOLOG FLEXPEN-HIGH RESISTANCE SC (22:00)
[2023-10-25 22:57] LABS: Glucose - Point of Care 277 mg/dl (70-99)
[2023-10-25] MEDS: NOVOLOG FLEXPEN 15 UNITS SC (22:59)
--- NOTE | 2023-10-25 23:37 | PTCARENOTE ---
Patient assessment unchanged from previous, on bipap 05/07. Patient refused mouth care right now, would prefer to do it in the morning. Call gibbons within reach.
[2023-10-26] VITALS (24 sets, daily range): BP systolic 108–152; BP diastolic 47–91; PULSE 2–82; BMI 23.2
[2023-10-26] MEDS: ZOSYN 50 IV ×4 (02:33→20:47)
[2023-10-26 04:13] LABS: % Basophils 0.3 % (0-2); % Immature Granulocytes 3.3 % (0-0.5); % Lymphocytes 2.8 % (20.5-51.1); % Monocytes 1.1 % (1.7-9.3); % Neutrophils 92.5 % (42.2-75.2); Absolute Basophils 0.1 10^3/uL (0-0.2); Absolute Immature Granulocytes 0.9 10^3/uL (0-0.05); Absolute Lymphocytes 0.8 10^3/uL (1.2-3.4); Absolute Monocytes 0.3 10^3/uL (0.1-0.6); Absolute Neutrophils 25.9 10^3/uL (1.4-6.5); Hematocrit 22.5 % (39.0-52.0); Hemoglobin 7.5 g/dL (13.0-18.0); Mean Corp Hgb Conc. 33.3 g/dL (33.0-37.0); Mean Corpuscular Hgb 30.6 pg (27.0-31.0); Mean Corpuscular Volume 91.8 fL (80.0-94.0); Mean Platelet Volume 10.9 fL (7.4-10.4); Nucleated Red Blood Cells % 0.4 % (-); Platelet Count 440 10^3/uL (130-400); Red Blood Cell Count 2.45 10^6/uL (4.70-6.10); Red Cell Dist. Width 21.3 % (11.5-14.5)
--- NOTE | 2023-10-26 04:38 | PTCARENOTE ---
Patient assessment unchanged from previous. Had another small bowel movement on the commode. Warm blankets provided, labs sent. Call gibbons within reach.
[2023-10-26 04:45] LABS: ALT (SGPT) 13 U/L (0-50); AST (SGOT) 29 U/L (17-59); Albumin 3.3 g/dl (3.5-5.0); Alkaline Phosphatase 71 U/L (38-126); Blood Urea Nitrogen 54 mg/dl (9-20); Calcium 8.8 mg/dl (8.4-10.2); Carbon Dioxide 21 mmol/L (22-30); Chloride 105 mmol/L (98-107); Estimated Creatinine Clearance 18 ml/min; Glucose 134 mg/dl (70-99); Magnesium 2.5 mg/dl (1.6-2.3); Phosphorus 4.2 mg/dl (2.5-4.5); Sodium 140 mmol/L (135-145); Total Bilirubin 1.2 mg/dl (0.2-1.3); Total Protein 5.6 g/dl (6.3-8.2); eGFR 19.33
[2023-10-26 04:48] LABS: Vancomycin Random 13.7 ug/ml
[2023-10-26] MEDS: PULMICORT 0.5 MG INH ×2 (06:29→19:15)
[2023-10-26] MEDS: DUONEB 3 ML INH ×2 (06:29→19:16)
[2023-10-26] MEDS: FLUSH (NSS) 1 FLUSH IV (08:14)
[2023-10-26] MEDS: ASPIR LOW (ENTERIC COATED) 81 MG PO (08:23)
[2023-10-26 08:25] LABS: Glucose - Point of Care 187 mg/dl (70-99)
[2023-10-26] MEDS: NITRO-DUR 0.599999999999999978 MG TRANSDERM (08:25)
[2023-10-26] MEDS: FARXIGA 5 MG PO (08:26)
[2023-10-26] MEDS: SODIUM BICARBONATE 650 MG PO ×3 (08:26→22:10)
[2023-10-26] MEDS: PACERONE 200 MG PO (08:26)
[2023-10-26] MEDS: MUCINEX 600 MG PO ×2 (08:26→20:47)
[2023-10-26] MEDS: ULORIC 40 MG PO (08:27)
--- NOTE | 2023-10-26 08:48 | PHA.VAN.FU ---
Vancomycin Assessment / Plan
- Assessment
Renal Function: SCR Increasing
WBC's are: Trending Up
In the past 24 hrs, patient has been: Afebrile
Concomitant Antimicrobials: Piperacillin-tazobactam
- Assessment - Therapeutic Drug Monitoring
Random Level: R = 13.7 ~ 29hrs post Vanc 1750mg
- Dosing Plan
Continue: Dose by level
Dosing by Level: Re-dose today (Vanc 1000mg--13.6mg/kg)
- Monitoring Plan
Random Level: 10/26 with AM labs
- Follow Up
Pharmacy will continue to follow.
Vancomycin Follow UP
- -
Patient Age: 83
Patient Sex: Male
Vancomycin Day #: 3
Indication: Pulmonary/Respiratory
Requesting Provider: BUD
Height / Weight:
Height 5 ft 10 in
Actual Weight 73.3 kg
Pertinent Past Medical History: CLL, DM
- Vital Signs / Lab Results
Temp Pulse Resp BP Pulse Ox
97.9 F 68 22 128/66 98
10/26/23 07:40 10/26/23 08:26 10/26/23 07:40 10/26/23 08:26 10/26/23 08:15
Lab Results - Hematology
10/25/23 10/26/23
05:57 03:14
WBC 22.1 H 28.0 H
Lab Results - Chemistry
10/25/23 10/26/23
05:57 03:14
BUN 35 H 54 H
Creatinine 2.7 H 3.1 H
Estimated Creat Clear 21 18
Albumin 3.0 L 3.3 L
Microbiology Results
10/24/23 18:26 MRSA Screen - Final
Nose No Methicillin Resistant Staphylococcus aureus isolated.
10/24/23 18:26 Blood Culture - Preliminary
Blood/Venous No Growth in 24 hours- Final report to follow
10/24/23 18:26 Blood Culture - Preliminary
Blood/Venous No Growth in 24 hours- Final report to follow
10/24/23 18:26 Legionella Urinary Antigen - Final
Urine Negative for Legionella pneumophila Serogroup 1 antigen.
A negative result does not rule out the possiblity of
Legionella infection due to other serogroups or species of
Legionella. Clinical correlation is recommended.
Streptococcus pneumoniae Antigen (M - Final
Negative for Streptococcus pneumoniae antigen.
A negative result does not exclude infection with
Streptococcus pneumoniae. Clinical correlation is
recommended.
10/24/23 18:26 Influenza Types A & B (YOBANY) - Final
Nasal Swab Negative for Influenza A & B, NAAT
Negative results must be combined with clinical observations
and patient history.
Nucleic Acid Amplification test (NAAT)performed on the
[employer] platform.
Therapeutic Drug Monitoring
Random Vancomycin 13.7 ug/ml 10/26/23 03:14
[2023-10-26] MEDS: NOVOLOG FLEXPEN-HIGH RESISTANCE 2 UNITS SC ×2 (08:56→17:07)
--- NOTE | 2023-10-26 09:00 | PTCARENOTE ---
Rec'd pt at 0730 sleeping, resting on Bipap 12/5 + 15L- changed over at 0800 to 10L midflow with sats of 98%. Awakened easily to verbal stimuli and is alert and oriented. Speech is clear. Pt initially very concerned about lost glasses that were
found this AM and returned to pt. Also very direct about wanting to know which meds he is on currentlyand any home meds that he is not being given, he would like to know why. Meds reviewed with pt. Pt very informed about his health history and
relayed that he wants to know what is being given and done to/for him. Denies pain currently. HICKS. Skin is pale pink wm and dry. Respirs are shallow but non-labored on the 10L midflow. BS are decreased throughout with fine bibase crackles. Denies
SOB. Coughing an intermittent non-prod cough. Monitor SR-SBrady with BB config and isolated PVC's. Rates 58-68. + pulses. PT and DP pulses with the doppler. No edema. Denies chest pain. ABd is soft with + BS. Denies nausea. #25 condom cath is in
place for yellow urine. Capped ints intact R upper forearm and R wrist. Pt repositioned. Plan of care reviewed with pt. Call gibbons in reach. Ready to eat breakfast.
--- NOTE | 2023-10-26 09:43 | W.PN.INTV ---
Today's Communication / Plan
Recommendations
Continue systemic steroids and wean as tolerated
Need to get BG under control - starting lantus tonight and giving NPH now
Goal BG 140-180
Check CXR in AM
No need to continue diuresis as this is likely an inflammatory pneumonitis and not ADHF
Empiric ABx with infectious workup
Patient is stable for transfer out of ICU to telemetry. Pulmonary service will continue to follow along.
Assessment
-
Assessment: 83-year-old male former tobacco smoker with past medical history of asthma/COPD, gout, CLL, history of PCV, mild restrictive lung disease, ABELARDO, HFpEF, A-fib s/p multiple DCCV on chronic amiodarone and warfarin, CAD with history of MS s/p
coronary stents and myelofibrosis who presents with low oxygen level. 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 He also endorses SOB over the last several
days with activity. In triage she was saturating 87% on room air, BP 135/62, pulse rate 66 and respiratory rate 18. He was afebrile to 98 �F. Of note he was recently hospitalized here from 09/22ue to C. difficile colitis with GRE.
Labs showed Hb 8.1, platelet 4 3, INR 3.79, proBNP 26,300, and TSH 4.93. COVID antigen was negative. Blood cultures were collected. CXR showed bilateral airspace/interstitial infiltrates suspicious for diffuse pneumonia. He was given a DuoNeb
treatment in the ER. He was initially admitted to the IMU, however due to worsening respiratory distress he was transferred to the ICU, started on BiPAP and now plant and instrument engineer consulted for additional management/recommendations.
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
IVIG, history of gout, BPH
Impression:
#Acute respiratory failure with hypoxia on supplemental oxygen
#Bilateral infiltrates
#Acute on chronic anemia
#Elevated troponin � peaked at 0.144 on 10/25/2023
#Recent CDI on PO vanc
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
#HTN
#Hx of asthma/copd not in an acute exacerbation
#Hx of ABELARDO on auto-BiPAP
#History of bronchiectasis on vest therapy at home
Plan:
- His CXR shows bilateral, watson-hilar opacification, and this is concerning for an acute inflammatory process, however his proBNP is highly elevated as well; does not look like a typical pneumonia but given his use of momelotinib, he is
immunocompromised and he should be covered with antibiotics for now; consider ID consult; DAH also on differential but less likely given his Hb has improved today and he has no hemoptysis
- Continue systemic steroids and wean as tolerated
- His BG is uncontrolled and >300-400 --> I will give 10 units NPH now, and start 10 units lantus tonight; may need to do BID lantus dosing or add AC aspart if hsi BG remains elevated tomorrow
- If his O2 requirements do not remain improved or if he worsens again, then he will need a bronch with BAL with sequential aliquots of rule out DAH, and also to send for micro analysis --> for now given he is improving and is down to 6-7L/min NC
and he feels better, bronch is not currently indicated
- Continue broad spectrum ABx - currently on Zosyn and is s/p IV vanco (MRSA swab negative hence IV vanco DC'd)
- Legionella and Strep PNA urine antigens are negative
- Check sputum Cx, follow up blood Cx; check Fungitell
- Continue PO vanco and monitor his diarrhea
- Maintain net negative fluid balance as tolerated
- Maintain SpO2 >90-94% and wean down midflow as tolerated
- Hold his momelotinib
- prn nebulized bronchodilators; he was previously was symbicort as an outpatient but was non-compliant; continue atrovent + xopenex BID with budesonide
- Continue vest therapy as he uses this at home given his Hx of bronchiectasis
- Trend Hb and transfuse if needed to keep Hb>7g/dL, plt>20k
- Maintain MAP>65
- Replete electrolytes with K>4, Mg>2
- Maintain euglycemia with goal BG 140-180
- No need to continue trending troponin as it peaked already on 10/25/2023 at 0.144
- Incentive spirometer encouraged
- DVT ppx
Patient is stable for transfer out of ICU to telemetry. Pulmonary service will continue to follow along.
Total time spent today was 55 minutes for this encounter. Time includes reviewing laboratory test/imaging results, reviewing pertinent medical records, obtaining and reviewing medical history, performing an appropriate exam, ordering medications,
tests and procedures. Time also includes documentation of this encounter, coordinating patient care and communicating with other healthcare professionals. Total time does not include separately billed tests performed on this date of service.
Data:
CXR 10-24-2023:
The heart size is within the limits of normal.
There are bilateral airspace and interstitial infiltrates, right greater than left, consistent with diffuse pneumonia.
Regional skeleton intact.
TTE 10-25-2023:
Normal left ventricular wall thickness.
Normal left ventricular chamber size.
Mildly reduced left ventricular systolic function.
Left ventricular ejection fraction is 44% by Anaya's method.
Global hypokinesis, more prominent in the mid and basal segments of the
anterolateral wall.
Normal right ventricular size and function.
Mitral valve opens normally.
Mild to moderate mitral regurgitation.
Trace to mild aortic regurgitation.
Mild tricuspid regurgitation.
The IVC is of normal size and demonstrates normal respiratory variation.
Normal pericardium without effusion.
No significant change noted from 09/2023
Subjective Dataa
Subjective Data
Date of Service:
Date of Service: October 26, 2023
Chief Complaint: Machine Design Checker Follow Up
Subjective:
Patient seen today at bedside. He says he feels better. He is currently on 70s minute cannula saturating 98%. He is afebrile overnight. Still has shortness of breath when he exerts himself and he is coughing but no blood seen in his phlegm. He
is using the vest this morning. He denies chest pain, chills.
Review of Systems
General: Other (Negative unless mentioned above)
Objective Data
Data Reviewed
Vital Signs / I&O / Oxygen:
Vital Signs
Temp Pulse Resp BP Pulse Ox
97.9 F 68 22 128/66 98
10/26/23 07:40 10/26/23 08:26 10/26/23 07:40 10/26/23 08:26 10/26/23 08:30
Intake and Output
10/25/23 10/26/23 10/27/23
06:59 06:59 06:59
Intake Total 50 / 50 1337.5 / 1337.5 50 / 50
Output Total 450 / 450 1000 / 1000
Balance -400 / -400 337.5 / 337.5 50 / 50
SaO2 98
Nasal Cannula flow liters per 10
minute
Physical Exam
General: Respiratory Distress (negative) and Comfortable
HEENT: Normocephalic and Anicteric
Cardiovascular: S1-S2, Murmur (n) and Peripheral Edema (negative)
Respiratory: Wheeze (negative), Crackles (Bilaterally in the middle lung castro predominantly), Rhonchi (negative) and Non-Labored Respirations
GI: Soft, Non Distended, Non Tender and Normal Bowel Sounds
Neurology: AO x 3
Skin: Warm, Dry and Cyanosis (negative)
Labs/Micro/Reports
Lab Data
10/26/23 03:14
10/26/23 03:14
Microbiology
10/24/23 18:26 Nose MRSA Screen - Final
No Methicillin Resistant Staphylococcus aureus isolated.
10/24/23 18:26 Blood/Venous Blood Culture - Preliminary
No Growth in 24 hours- Final report to follow
10/24/23 18:26 Blood/Venous Blood Culture - Preliminary
No Growth in 24 hours- Final report to follow
10/24/23 18:26 Urine Legionella Urinary Antigen - Final
Negative for Legionella pneumophila Serogroup 1 antigen.
A negative result does not rule out the possiblity of
Legionella infection due to other serogroups or species of
Legionella. Clinical correlation is recommended.
10/24/23 18:26 Urine Streptococcus pneumoniae Antigen (M - Final
Negative for Streptococcus pneumoniae antigen.
A negative result does not exclude infection with
Streptococcus pneumoniae. Clinical correlation is
recommended.
10/24/23 18:26 Nasal Swab Influenza Types A & B (YOBANY) - Final
Negative for Influenza A & B, NAAT
Negative results must be combined with clinical observations
and patient history.
Nucleic Acid Amplification test (NAAT)performed on the
[employer] platform.
--- NOTE | 2023-10-26 10:20 | PTCARENOTE ---
Excellent appetite for breakfast. Denies nausea. Complete CHG bath given. Oral care done by pt. Pt then assisted OOB to the chair. Gait is sl weak but overalll steady and denies dizziness. Call gibbons in reach.
[2023-10-26] MEDS: VANCOCIN 200 IV (10:42)
[2023-10-26] MEDS: DECADRON 6 MG IV ×2 (10:43→22:10)
[2023-10-26] MEDS: FLUSH (NSS) 2 FLUSH IV (10:43)
[2023-10-26 12:13] LABS: Glucose - Point of Care 432 mg/dl (70-99)
--- NOTE | 2023-10-26 12:22 | PTCARENOTE ---
Assisted to the commode. Passing flatus but no stool. Dr. Skelton in earlier and aware pt had not moved his bowels much. Wants to see if any success today with getting up and moving around. Was sitting oob x2 hrs- currently assisted back to bed
at pt request. Gait is slow but steady. O2 decreased to 7l Midlflow with sats of 98%. VS as documented. Accucheck read a high. Pt asymptomatic. Venous glucose sent. Call gibbons in reach. Currently on pulmonary vest.
[2023-10-26 12:37] LABS: Glucose 350 mg/dl (70-99)
[2023-10-26] MEDS: NOVOLOG FLEXPEN-HIGH RESISTANCE 12 UNITS SC (13:14)
--- NOTE | 2023-10-26 13:22 | PTCARENOTE ---
Venous glucose resulted as 350- Sliding scale High Coverage given as pt ready to eat lunch. No other changes. O2 decreased to 6l midflow with sats of 98%
--- NOTE | 2023-10-26 14:02 | W.PN.HOSP.TC ---
Today's Communication/Plan
-
stop vanc, cont zosyn
wean o2
wean steroids as tolerated, can cont on current dosing today
pulm following
ok for dg
Assessment / Plan
Assessment / Plan
Physical Exam
General: Well Developed, Well Nourished and midly tachypneic on NIV
HEENT: NormoCephalic, Moist mucous membranes and Atraumatic
Respiratory: Clear
Cardiac: S1/S2 and Regular Rhythm; No Murmur or Rub
GI: Soft, Non Tender, Non Distended and Normal Bowel Sounds; No Organomegaly
Rectal: Deferred by Provider
Musculoskeletal: No Clubbing, No Cyanosis and No Edema
Skin: No Rash
Neuro: Nonfocal/grossly intact
PLAN:
# Acute Hypoxic respiratory failure
-2/2 to pneumonia +/- Interstitial Pneumonitis in setting of Momelotinib
-PE unlikely as patient on Coumadin and supratherapeutic
-Weaned back to Midflow, maintain O2 >92%
-Check blood cultures
-Check sputum culture if expectorating
-COVID, influenza negative
-Check strep antigen, Legionella, MRSA
-DC Vancomycin - MRSA negative;
-Cont Zosyn
-Started on empiric steroids - wean slowly
-IV lasix
#Sepsis
-2/2 to above - possible pneumonia
-cont empiric abx, f/ cultures - treatment as stated above
#Chronic HFref
-F/u ECHO: no significant changes
-Lasix
-monitor Is&Os, daily weights
#Nonischemic myocardial injury
-Most likely secondary to acute issues
-Trend utnil peak troponins
-no chest pain
History of CLL/myelofibrosis
-Patient on Momelotinib
Chronic anemia
-Continue ferrous sulfate
-Blood consent signed
-maintain HgB over 7
Paroxysmal atrial fibrillation
Supratherapeutic INR
-Holding Warfarin
-Continue amiodarone
CAD status post stents
-Continue aspirin
COPD
-Continue inhalers
Essential hypertension
-Continue metoprolol, amlodipine
Hypercholesterolemia
-Continue statin
Type 2 diabetes
CKD 4
-Renal function at baseline
-Continue sodium bicarb
Recent C. difficile colitis
-Continue oral vancomycin
BPH
-Continue finasteride
Full code
DVT prophylaxis�Coumadin
Cardiac/renal diet
Anticipated Discharge: Within 24 hours
Subjective/Interval History
-
Date of Service: October 26, 2023
feels better, on 6L NC
Objective Data
-
Labs:
Laboratory Results
10/26/23 10/26/23
03:14 12:12
WBC 28.0 H
Hgb 7.5 L
Hct 22.5 L
Plt Count 440 H
Sodium 140
Potassium 5.0
Chloride 105
Carbon Dioxide 21 L
BUN 54 H
Creatinine 3.1 H
Glucose 134 H 350 H
Calcium 8.8
Total Bilirubin 1.2
AST 29
ALT 13
Alkaline Phosphatase 71
Vital Signs:
Vital Signs
Temp Pulse Resp BP Pulse Ox
97.2 F 66 21 122/56 98
10/26/23 11:21 10/26/23 12:14 10/26/23 12:14 10/26/23 12:14 10/26/23 13:23
I&O
10/25/23 10/26/23 10/27/23
06:59 06:59 06:59
Intake Total 50 / 50 1337.5 / 1337.5 600 / 600
Output Total 450 / 450 1000 / 1000 450 / 450
Balance -400 / -400 337.5 / 337.5 150 / 150
Review of Systems
-
History Source: Patient
All other systems: Not reviewed unless documented
Physical Exam
-
General: No Apparent Distress
HEENT: Normocephalic and Atraumatic
Respiratory: Negative Wheezes
Cardiac: Regular Rhythm and S1/S2
GI: Soft
Genito-urinary: No Costovertebral Tender
Neuro: AO x 3
Hematologic / Lymphatic: No Lymphadenopathy
Psych: Calm
Data Reviewed
-
Diagnostic Radiology: Image personally visualized and interpreted and Report Reviewed by me
Labs: Labs Reviewed by me
--- NOTE | 2023-10-26 14:25 | PTCARENOTE ---
Ate some lunch. Resting back in bed since around 1230. Tolerated being oob well. Does admit to feeling winded with activity but not as bad a when he first came in and denies SOB at rest. Call gibbons in reach.
[2023-10-26] MEDS: HUMULIN N KWIKPEN 10 UNITS SC (16:15)
[2023-10-26] MEDS: NORVASC 10 MG PO (17:08)
[2023-10-26] MEDS: TOPROL XL 12.5 MG PO (17:08)
[2023-10-26] MEDS: CRESTOR 5 MG PO (17:09)
[2023-10-26] MEDS: PROSCAR 5 MG PO (17:09)
[2023-10-26] MEDS: FIRVANQ 125 MG PO (17:09)
[2023-10-26 17:17] LABS: Glucose - Point of Care 186 mg/dl (70-99)
--- NOTE | 2023-10-26 18:45 | PTCARENOTE ---
Received report from Iwona in ICU. Provided report to receiving inseam trimming machine operator RN (Mile).
--- NOTE | 2023-10-26 21:00 | PTCARENOTE ---
s/w pt for 1hour regarding diagnosis, medications (review home med list and current meds in [facility]), and plan of care/treatment. at this time no further questions. instructed pt to ring call gibbons if needed anything.
[2023-10-26 21:32] LABS: Glucose - Point of Care 232 mg/dl (70-99)
[2023-10-26] MEDS: NOVOLOG FLEXPEN-HIGH RESISTANCE 4 UNITS SC (22:12)
[2023-10-26] MEDS: LANTUS 0.100000000000000006 UNITS SC (22:12)
[2023-10-27] VITALS (7 sets, daily range): BP systolic 115–136; BP diastolic 47–62; PULSE 2–66; BMI 22.2
[2023-10-27] MEDS: ZOSYN 50 IV ×4 (02:37→19:46)
[2023-10-27] MEDS: PACERONE 200 MG PO (06:01)
--- NOTE | 2023-10-27 06:25 | PTCARENOTE ---
pt was NSR w/ HR 60-80's. pt later became afib 90's;then at ~0600 XV=[id number]'s still afib. zt=966/83. administered AM amiodarone. pt resting in bed.
[2023-10-27 07:05] LABS: Hematocrit 24.4 % (39.0-52.0); Hemoglobin 7.7 g/dL (13.0-18.0); Mean Corp Hgb Conc. 31.6 g/dL (33.0-37.0); Mean Corpuscular Hgb 28.8 pg (27.0-31.0); Mean Corpuscular Volume 91.4 fL (80.0-94.0); Platelet Count 455 10^3/uL (130-400); Red Blood Cell Count 2.67 10^6/uL (4.70-6.10); Red Cell Dist. Width 21.4 % (11.5-14.5); White Blood Cell Count 26.3 10^3/uL (4.8-10.8)
[2023-10-27 07:11] LABS: APTT 34.1 Sec (23.4-35.0); PT 50.4 Sec (11.4-14.6)
[2023-10-27 07:14] LABS: INR 5.51
[2023-10-27 07:27] LABS: ALT (SGPT) 13 U/L (0-50); AST (SGOT) 20 U/L (17-59); Albumin 3.1 g/dl (3.5-5.0); Alkaline Phosphatase 71 U/L (38-126); Blood Urea Nitrogen 67 mg/dl (9-20); Carbon Dioxide 24 mmol/L (22-30); Chloride 103 mmol/L (98-107); Estimated Creatinine Clearance 18 ml/min; Glucose 124 mg/dl (70-99); Magnesium 2.4 mg/dl (1.6-2.3); Phosphorus 4.9 mg/dl (2.5-4.5); Potassium 4.4 mmol/L (3.5-5.1); Sodium 137 mmol/L (135-145); Total Bilirubin 1.7 mg/dl (0.2-1.3); Total Protein 5.3 g/dl (6.3-8.2); eGFR 18.61
[2023-10-27 07:49] LABS: Glucose - Point of Care 164 mg/dl (70-99)
--- NOTE | 2023-10-27 08:00 | PTCARENOTE ---
Made Dr. Kerr aware of pt's critical INR level of 5.51 this morning.
[2023-10-27] MEDS: NOVOLOG FLEXPEN-HIGH RESISTANCE 2 UNITS SC (08:10)
[2023-10-27] MEDS: ULORIC 40 MG PO (08:11)
[2023-10-27] MEDS: MUCINEX 600 MG PO ×2 (08:11→19:46)
[2023-10-27] MEDS: FARXIGA 5 MG PO (08:11)
[2023-10-27] MEDS: ASPIR LOW (ENTERIC COATED) 81 MG PO (08:11)
[2023-10-27] MEDS: SODIUM BICARBONATE 650 MG PO ×3 (08:12→21:58)
[2023-10-27] MEDS: NITRO-DUR 0.599999999999999978 MG TRANSDERM (08:12)
[2023-10-27] MEDS: FLUSH (NSS) 1 FLUSH IV (08:13)
[2023-10-27] MEDS: DUONEB 3 ML INH ×2 (10:23→20:21)
[2023-10-27] MEDS: PULMICORT 0.5 MG INH ×2 (10:23→20:21)
[2023-10-27] MEDS: DECADRON 6 MG IV ×2 (11:20→22:14)
--- NOTE | 2023-10-27 11:26 | W.PN.PUL3 ---
Today's Communication / Plan
-
Trend BNP
Continue systemic steroids and wean as tolerated
BG better this AM but still elevated--> raise lantus, start NPH in AM, and continue AC aspart + ISS; adjust as needed
Goal BG >100 and <180
No need to continue diuresis as this is likely an inflammatory pneumonitis and not ADHF
Tomorrow would try to wean down to 4-5mg decadron q12hr
Empiric ABx with infectious workup
Assessment
-
Assessment: 83-year-old male former tobacco smoker with past medical history of asthma/COPD, gout, CLL, history of PCV, mild restrictive lung disease, ABELARDO, HFpEF, A-fib s/p multiple DCCV on chronic amiodarone and warfarin, CAD with history of NM s/p
coronary stents and myelofibrosis who presents with low oxygen level. 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 He also endorses SOB over the last several
days with activity. In triage she was saturating 87% on room air, BP 135/62, pulse rate 66 and respiratory rate 18. He was afebrile to 98 �F. Of note he was recently hospitalized here from 09/22 � 09/27/2023 due to C. difficile colitis with GER.
Labs showed Hb 8.1, platelet 4 3, INR 3.79, proBNP 26,300, and TSH 4.93. COVID antigen was negative. Blood cultures were collected. CXR showed bilateral airspace/interstitial infiltrates suspicious for diffuse pneumonia. He was given a DuoNeb
treatment in the ER. He was initially admitted to the IMU, however due to worsening respiratory distress he was transferred to the ICU, started on BiPAP and now research advisor consulted for additional management/recommendations.
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
IVIG, history of gout, BPH
Impression:
#Acute respiratory failure with hypoxia on supplemental oxygen
#Bilateral infiltrates
#Acute on chronic anemia
#Elevated troponin � peaked at 0.144 on 10/25/2023
#Recent CDI on PO vanc
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
#HTN
#Hx of asthma/copd not in an acute exacerbation
#Hx of ABELARDO on auto-BiPAP
#History of bronchiectasis on vest therapy at home
Plan:
- His CXR shows bilateral, watson-hilar opacification, and this is concerning for an acute inflammatory process, however his proBNP is highly elevated as well; does not look like a typical pneumonia but given his use of momelotinib, he is
immunocompromised and he should be covered with antibiotics for now; consider ID consult; DAH also on differential but less likely given his Hb has improved today and he has no hemoptysis
- Continue systemic steroids and wean as tolerated --> tomorrow would try to wean down to 4-5mg decadron q12hr
- His BG better this AM but is still uncontrolled and >200-300 --> I will raise lantus from 10 U to 15 U HS, and start NPH q daily 10 units; aspart added by Dr. Kerr; continue ISS (high-resistance)
- If his O2 requirements do not remain improved or if he worsens again, then he will need a bronch with BAL with sequential aliquots of rule out DAH, and also to send for micro analysis --> for now given he is improving and is down to 6-7L/min NC
and he feels better, bronch is not currently indicated
- Continue broad spectrum ABx - currently on Zosyn and is s/p IV vanco (MRSA swab negative hence IV vanco DC'd)
- Legionella and Strep PNA urine antigens are negative
- Check sputum Cx, follow up blood Cx; check Fungitell
- Continue PO vanco and monitor his diarrhea
- Maintain net negative fluid balance as tolerated
- Maintain SpO2 >90-94% and wean down midflow as tolerated
- Hold his momelotinib
- prn nebulized bronchodilators; he was previously was symbicort as an outpatient but was non-compliant; continue DuoNebs BID + budesonide
- Continue vest therapy as he uses this at home given his Hx of bronchiectasis
- Trend Hb and transfuse if needed to keep Hb>7g/dL, plt>20k
- Maintain MAP>65
- Replete electrolytes with K>4, Mg>2
- Maintain euglycemia with goal BG 140-180
- No need to continue trending troponin as it peaked already on 10/25/2023 at 0.144
- Incentive spirometer encouraged
- DVT ppx
Total time spent today was 35 minutes for this encounter. Time includes reviewing laboratory test/imaging results, reviewing pertinent medical records, obtaining and reviewing medical history, performing an appropriate exam, ordering medications,
tests and procedures. Time also includes documentation of this encounter, coordinating patient care and communicating with other healthcare professionals. Total time does not include separately billed tests performed on this date of service.
Data:
CXR 10-25-2023: Bilateral reticular and airspace opacities as above most likely related to pneumonia, without significant change. Very small bilateral effusions.
CXR 10-24-2023: The heart size is within the limits of normal; There are bilateral airspace and interstitial infiltrates, right greater than left, consistent with diffuse pneumonia. Regional skeleton intact.
TTE 10-25-2023:
Normal left ventricular wall thickness.
Normal left ventricular chamber size.
Mildly reduced left ventricular systolic function.
Left ventricular ejection fraction is 44% by Anaya's method.
Global hypokinesis, more prominent in the mid and basal segments of the
anterolateral wall.
Normal right ventricular size and function.
Mitral valve opens normally.
Mild to moderate mitral regurgitation.
Trace to mild aortic regurgitation.
Mild tricuspid regurgitation.
The IVC is of normal size and demonstrates normal respiratory variation.
Normal pericardium without effusion.
No significant change noted from 09/2023
Subjective Data
-
Date of Service:
Date of Service: October 27, 2023
Chief Complaint: Pulmonary Follow Up
Subjective:
Patient seen and evaluate today, on 6 L/min mid flow nasal cannula saturating 94%. In and out of A-fib with activity and he still feels short of breath activity. He denies chest pain, headache, fevers or chills. Afebrile overnight.
Review of Systems
General: Other (Negative unless mentioned above)
Objective Data
Data Reviewed
Vital Signs / I&O / Oxygen:
Vital Signs
Temp Pulse Resp BP Pulse Ox
97.6 F 74 18 115/50 96
10/27/23 08:30 10/27/23 10:26 10/27/23 10:26 10/27/23 08:30 10/27/23 10:26
Intake and Output
10/26/23 10/27/23 10/28/23
06:59 06:59 06:59
Intake Total 1337.5 / 1337.5 1140 / 1140
Output Total 1000 / 1000 950 / 950
Balance 337.5 / 337.5 190 / 190
SaO2 96
Nasal Cannula flow liters per 6
minute
Physical Exam
General: Respiratory Distress (Negative) and Comfortable
HEENT: Normocephalic and Anicteric
Cardiovascular: S1-S2 and Peripheral Edema (Negative)
Respiratory: Wheeze (Negative), Crackles ([place]t in the middle lung castro bilaterally), Rhonchi (Negative) and Non-Labored Respirations
GI: Soft, Non Distended, Non Tender and Normal Bowel Sounds
Neurology: AO x 3 and Tremors (Negative)
Skin: Warm, Dry and Cyanosis (Negative)
Labs/Micro/Reports
Lab Data
10/27/23 06:27
10/27/23 06:27
Laboratory Results
10/27/23
06:27
PT 50.4 H
INR 5.51 H*
APTT 34.1
Microbiology
10/24/23 18:26 Blood/Venous Blood Culture - Preliminary
No Growth in 48 hours- Final report to follow
10/24/23 18:26 Blood/Venous Blood Culture - Preliminary
No Growth in 48 hours- Final report to follow
10/24/23 18:26 Nose MRSA Screen - Final
No Methicillin Resistant Staphylococcus aureus isolated.
10/24/23 18:26 Urine Legionella Urinary Antigen - Final
Negative for Legionella pneumophila Serogroup 1 antigen.
A negative result does not rule out the possiblity of
Legionella infection due to other serogroups or species of
Legionella. Clinical correlation is recommended.
10/24/23 18:26 Urine Streptococcus pneumoniae Antigen (M - Final
Negative for Streptococcus pneumoniae antigen.
A negative result does not exclude infection with
Streptococcus pneumoniae. Clinical correlation is
recommended.
10/24/23 18:26 Nasal Swab Influenza Types A & B (YOBANY) - Final
Negative for Influenza A & B, NAAT
Negative results must be combined with clinical observations
and patient history.
Nucleic Acid Amplification test (NAAT)performed on the
[employer] platform.
[2023-10-27 11:50] LABS: Glucose - Point of Care 275 mg/dl (70-99)
--- NOTE | 2023-10-27 12:00 | PTCARENOTE ---
Attempted to decrease O2 to 4L via midflow nasal cannula. Pt laying at rest in bed, SPO2 down to 85% on 4L O2 via midflow. Increased to 5L O2 and up to 88%. Pt denying any SOB at rest with decrease in O2. Increased O2 up to 6L O2 via midflow and
SPO2 94% on 6L O2 via midflow. Will continue to monitor.
--- NOTE | 2023-10-27 12:21 | W.PN.HOSP.TC ---
Today's Communication/Plan
-
abx, monitor wbc, fever curve
steroid wean
o2 wean
glucose control- monitor FS with weaning steroid dose
Assessment / Plan
Assessment / Plan
Physical Exam
General: Well Developed, Well Nourished and midly tachypneic on NIV
HEENT: NormoCephalic, Moist mucous membranes and Atraumatic
Respiratory: Clear
Cardiac: S1/S2 and Regular Rhythm; No Murmur or Rub
GI: Soft, Non Tender, Non Distended and Normal Bowel Sounds; No Organomegaly
Rectal: Deferred by Provider
Musculoskeletal: No Clubbing, No Cyanosis and No Edema
Skin: No Rash
Neuro: Nonfocal/grossly intact
PLAN:
# Acute Hypoxic respiratory failure
-2/2 to pneumonia +/- Interstitial Pneumonitis in setting of Momelotinib
-PE unlikely as patient on Coumadin and supratherapeutic
-Weaned back to Midflow, maintain O2 >92%
-cultures ngtd
-COVID, influenza negative
-strep antigen, Legionella negative
-DC Vancomycin - MRSA negative;
-Cont Zosyn
-Started on empiric steroids - wean slowly
#Sepsis
-2/2 to above - possible pneumonia
-cont empiric abx, f/ cultures - treatment as stated above
#Chronic HFref
-F/u ECHO: no significant changes
-monitor Is&Os, daily weights
#Nonischemic myocardial injury
-Most likely secondary to acute issues
-Trend utnil peak troponins
-no chest pain
History of CLL/myelofibrosis
-Patient on Momelotinib
Chronic anemia
-Continue ferrous sulfate
-Blood consent signed
-maintain HgB over 7
Hyperglycemia
-2/2 to steroids
anticipate improvement with weaning
-insulin titration
Paroxysmal atrial fibrillation
Supratherapeutic INR
-Holding Warfarin
-Continue amiodarone
CAD status post stents
-Continue aspirin
COPD
-Continue inhalers
Essential hypertension
-Continue metoprolol, amlodipine
Hypercholesterolemia
-Continue statin
CKD 4
-Renal function at baseline
-Continue sodium bicarb
Recent C. difficile colitis
-Continue oral vancomycin
BPH
-Continue finasteride
Full code
DVT prophylaxis�Coumadin
Cardiac/renal diet
Anticipated Discharge: > 48 hours
Subjective/Interval History
-
Date of Service: October 27, 2023
No acute events overnight, tolerated noninvasive ventilation overnight, now on 6 L
Objective Data
-
Labs:
Laboratory Results
10/27/23
06:27
WBC 26.3 H
Hgb 7.7 L
Hct 24.4 L
Plt Count 455 H
PT 50.4 H
INR 5.51 H*
APTT 34.1
Sodium 137
Potassium 4.4
Chloride 103
Carbon Dioxide 24
BUN 67 H
Creatinine 3.2 H
Glucose 124 H
Calcium 9.0
Total Bilirubin 1.7 H
AST 20
ALT 13
Alkaline Phosphatase 71
Vital Signs:
Vital Signs
Temp Pulse Resp BP Pulse Ox
97.1 F 75 24 136/54 94
10/27/23 11:35 10/27/23 11:35 10/27/23 11:35 10/27/23 11:35 10/27/23 12:05
I&O
10/26/23 10/27/23 10/28/23
06:59 06:59 06:59
Intake Total 1337.5 / 1337.5 1140 / 1140
Output Total 1000 / 1000 950 / 950
Balance 337.5 / 337.5 190 / 190
Review of Systems
-
History Source: Patient
All other systems: Not reviewed unless documented
Physical Exam
-
General: No Apparent Distress
HEENT: Normocephalic and Atraumatic
Respiratory: Negative Wheezes
Cardiac: Regular Rhythm and S1/S2
GI: Soft
Genito-urinary: No Costovertebral Tender
Neuro: AO x 3
Hematologic / Lymphatic: No Lymphadenopathy
Psych: Calm
Data Reviewed
-
Diagnostic Radiology: Image personally visualized and interpreted and Report Reviewed by me
Labs: Labs Reviewed by me
--- NOTE | 2023-10-27 12:40 | CM ---
Patient seen at bedside, on O2. Patient does not have home O2. patient has had [facility] and [facility] in the past. Patient very talkative, but does not feel that he needs any help at discharge. Patient lives with his Sharon in a 2 story home with 2 step
to enter and bed and bathroom on first floor. Patient indicated that he is independent in driving and in all activities of daily living. Patient currently declining VN or SNF placement, pending home O2 assessment. Patient PCP is Dr. Santos and he
uses the [facility] pharmacy for pharmacy needs. CM will continue to follow for discharge planning needs.
Plan; home with ; watch for home O2 needs, VN or SNF pending functional assessments
[2023-10-27] MEDS: NOVOLOG FLEXPEN-HIGH RESISTANCE 7 UNITS SC (12:54)
[2023-10-27 16:17] LABS: Glucose - Point of Care 352 mg/dl (70-99)
[2023-10-27] MEDS: NOVOLOG FLEXPEN-HIGH RESISTANCE 12 UNITS SC ×2 (16:25→21:58)
--- NOTE | 2023-10-27 17:30 | PTCARENOTE ---
When pt was up on commode having BM, HR up to 140, irregular, asymptomatic. Once pt was back in bed, SR, HR 60s, will continue to monitor.
[2023-10-27 17:31] LABS: Glucose - Point of Care 379 mg/dl (70-99)
[2023-10-27] MEDS: CRESTOR 5 MG PO (18:13)
[2023-10-27] MEDS: FIRVANQ 125 MG PO (18:13)
[2023-10-27] MEDS: NORVASC 10 MG PO (18:13)
[2023-10-27] MEDS: PROSCAR 5 MG PO (18:13)
[2023-10-27] MEDS: FEOSOL 325 MG PO (18:13)
[2023-10-27] MEDS: TOPROL XL 12.5 MG PO (18:13)
--- NOTE | 2023-10-27 18:29 | PTCARENOTE ---
Pt's blood sugar prior to dinner was 352. Discussed with Dr. Kerr and questioned if he wanted more than 12 units of Novolog administered per protocol sliding scale. Dr. Kerr indicated to administer Novolog 12 units and recheck blood sugar in
1 hr.
Rechecked blood sugar in 1 hr, blood sugar [address] Kerr aware of new result. Orders placed for further insulin. Updated pt on new order.
--- NOTE | 2023-10-27 18:39 | PTCARENOTE ---
Noted that pt has a skin tear vs stage 2 of coccyx. Pt states that he has had a sore on his coccyx prior to admission but it was scabbed. See wound care management. Waffle overlay placed on bed. Pt turning/repositioning self in bed, encouraged him
to continue.
[2023-10-27] MEDS: NOVOLOG FLEXPEN 10 UNITS SC (19:46)
[2023-10-27 21:18] LABS: Glucose - Point of Care 365 mg/dl (70-99)
[2023-10-27] MEDS: LANTUS 0.149999999999999994 UNITS SC (21:57)
[2023-10-28] VITALS (10 sets, daily range): BP systolic 114–131; BP diastolic 49–68; PULSE 2–107; O2SAT 95
[2023-10-28] MEDS: ZOSYN 50 IV ×4 (02:33→19:53)
[2023-10-28] MEDS: DUONEB 3 ML INH ×2 (07:33→19:20)
[2023-10-28] MEDS: PULMICORT 0.5 MG INH ×2 (07:33→19:19)
[2023-10-28 07:35] LABS: Hematocrit 24.4 % (39.0-52.0); Hemoglobin 7.5 g/dL (13.0-18.0); Mean Corp Hgb Conc. 30.7 g/dL (33.0-37.0); Mean Corpuscular Hgb 28.5 pg (27.0-31.0); Mean Corpuscular Volume 92.8 fL (80.0-94.0); Mean Platelet Volume 11.4 fL (7.4-10.4); Platelet Count 383 10^3/uL (130-400); Red Blood Cell Count 2.63 10^6/uL (4.70-6.10); White Blood Cell Count 27.6 10^3/uL (4.8-10.8)
[2023-10-28 07:44] LABS: Glucose - Point of Care 222 mg/dl (70-99)
[2023-10-28 07:46] LABS: NT-proBNP 19800 pg/ml
[2023-10-28 07:51] LABS: PT 50.6 Sec (11.4-14.6)
[2023-10-28 08:02] LABS: INR 5.54
[2023-10-28 08:14] LABS: ALT (SGPT) 14 U/L (0-50); AST (SGOT) 17 U/L (17-59); Albumin 2.9 g/dl (3.5-5.0); Alkaline Phosphatase 63 U/L (38-126); Blood Urea Nitrogen 77 mg/dl (9-20); Calcium 8.5 mg/dl (8.4-10.2); Carbon Dioxide 24 mmol/L (22-30); Chloride 102 mmol/L (98-107); Estimated Creatinine Clearance 17 ml/min; Glucose 146 mg/dl (70-99); Potassium 4.1 mmol/L (3.5-5.1); Sodium 136 mmol/L (135-145); Total Bilirubin 1.3 mg/dl (0.2-1.3); Total Protein 5.1 g/dl (6.3-8.2)
[2023-10-28] MEDS: ASPIR LOW (ENTERIC COATED) 81 MG PO (08:22)
[2023-10-28] MEDS: NITRO-DUR 0.599999999999999978 MG TRANSDERM (08:22)
[2023-10-28] MEDS: MUCINEX 600 MG PO ×2 (08:22→19:53)
[2023-10-28] MEDS: SODIUM BICARBONATE 650 MG PO ×3 (08:22→21:17)
[2023-10-28] MEDS: PACERONE 200 MG PO (08:22)
[2023-10-28] MEDS: ULORIC 40 MG PO (08:22)
[2023-10-28] MEDS: FARXIGA 5 MG PO (08:22)
[2023-10-28] MEDS: NOVOLOG FLEXPEN-HIGH RESISTANCE 4 UNITS SC (08:22)
[2023-10-28] MEDS: NOVOLOG FLEXPEN 3 UNITS SC ×2 (08:23→12:50)
[2023-10-28] MEDS: HUMULIN N KWIKPEN 10 UNITS SC (08:24)
--- NOTE | 2023-10-28 11:18 | W.PN.PUL3 ---
Today's Communication / Plan
-
Trend BNP
Continue systemic steroids and wean as tolerated
BG better this AM but still elevated--> raise lantus again, start NPH in AM, and continue AC aspart + ISS; adjust as needed
Goal BG >100 and <180
No need to continue diuresis as this is likely an inflammatory pneumonitis and not ADHF
Tomorrow would try to wean down to 4-5mg decadron q12hr (check CRP)
Empiric ABx with infectious workup
If patient does not continue to improve or if he deteriorates then would consider bronchoscopy for BAL
Assessment
-
Assessment: 83-year-old male former tobacco smoker with past medical history of asthma/COPD, gout, CLL, history of PCV, mild restrictive lung disease, ABELARDO, HFpEF, A-fib s/p multiple DCCV on chronic amiodarone and warfarin, CAD with history of [place] s/p
coronary stents and myelofibrosis who presents with low oxygen level. 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 He also endorses SOB over the last several
days with activity. In triage she was saturating 87% on room air, BP 135/62, pulse rate 66 and respiratory rate 18. He was afebrile to 98 �F. Of note he was recently hospitalized here from 09/22ue to C. difficile colitis with GER.
Labs showed Hb 8.1, platelet 4 3, INR 3.79, proBNP 26,300, and TSH 4.93. COVID antigen was negative. Blood cultures were collected. CXR showed bilateral airspace/interstitial infiltrates suspicious for diffuse pneumonia. He was given a DuoNeb
treatment in the ER. He was initially admitted to the IMU, however due to worsening respiratory distress he was transferred to the ICU, started on BiPAP and now buckle coverer consulted for additional management/recommendations.
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
IVIG, history of gout, BPH
Impression:
#Acute respiratory failure with hypoxia on supplemental oxygen
#Bilateral infiltrates
#Acute on chronic anemia
#Elevated troponin � peaked at 0.144 on 10/25/2023
#Recent CDI on PO vanc
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
#HTN
#Hx of asthma/copd not in an acute exacerbation
#Hx of ABELARDO on auto-BiPAP
#History of bronchiectasis on vest therapy at home
Plan:
- His CXR shows bilateral, watson-hilar opacification, and this is concerning for an acute inflammatory process, however his proBNP is highly elevated as well; does not look like a typical pneumonia but given his use of momelotinib, he is
immunocompromised and he should be covered with antibiotics for now; consider ID consult; DAH also on differential but less likely given his Hb is stable and he has no hemoptysis
- Continue systemic steroids and wean as tolerated --> tomorrow would try to wean down to 4-5mg decadron q12hr
- His BG better this AM but is still uncontrolled and >200-300 --> I raised lantus from 10 U to 15 U HS on 10/26, and started NPH q daily 10 units; aspart added by Dr. Kerr; continue ISS (high-resistance) - continue to monitor
- If his O2 requirements do not remain improved or if he worsens again, then he will need a bronch with BAL with sequential aliquots of rule out DAH, and also to send for micro analysis --> for now given he is improving and is down to 6-7L/min NC
and he feels better, bronch is not currently indicated
- Continue broad spectrum ABx - currently on Zosyn and is s/p IV vanco (MRSA swab negative hence IV vanco DC'd)
- Legionella and Strep PNA urine antigens are negative
- Check sputum Cx, follow up blood Cx; check Fungitell
- Continue PO vanco and monitor his diarrhea
- Maintain net negative fluid balance as tolerated
- Maintain SpO2 >90-94% and wean down midflow as tolerated
- Hold his momelotinib
- prn nebulized bronchodilators; he was previously was symbicort as an outpatient but was non-compliant; continue DuoNebs BID + budesonide
- Continue vest therapy as he uses this at home given his Hx of bronchiectasis
- Trend Hb and transfuse if needed to keep Hb>7g/dL, plt>20k
- Maintain MAP>65
- Replete electrolytes with K>4, Mg>2
- Maintain euglycemia with goal BG 140-180
- No need to continue trending troponin as it peaked already on 10/25/2023 at 0.144
- Incentive spirometer encouraged
- DVT ppx
Total time spent today was 35 minutes for this encounter. Time includes reviewing laboratory test/imaging results, reviewing pertinent medical records, obtaining and reviewing medical history, performing an appropriate exam, ordering medications,
tests and procedures. Time also includes documentation of this encounter, coordinating patient care and communicating with other healthcare professionals. Total time does not include separately billed tests performed on this date of service.
Data:
CXR 10-25-2023: Bilateral reticular and airspace opacities as above most likely related to pneumonia, without significant change. Very small bilateral effusions.
CXR 10-24-2023: The heart size is within the limits of normal; There are bilateral airspace and interstitial infiltrates, right greater than left, consistent with diffuse pneumonia. Regional skeleton intact.
TTE 10-25-2023:
Normal left ventricular wall thickness.
Normal left ventricular chamber size.
Mildly reduced left ventricular systolic function.
Left ventricular ejection fraction is 44% by Anaya's method.
Global hypokinesis, more prominent in the mid and basal segments of the
anterolateral wall.
Normal right ventricular size and function.
Mitral valve opens normally.
Mild to moderate mitral regurgitation.
Trace to mild aortic regurgitation.
Mild tricuspid regurgitation.
The IVC is of normal size and demonstrates normal respiratory variation.
Normal pericardium without effusion.
No significant change noted from 09/2023
Subjective Data
-
Date of Service:
Date of Service: October 28, 2023
Chief Complaint: Pulmonary Follow Up
Subjective:
Seen and evaluated today at bedside. Afebrile overnight. proBNP improving. Blood glucose improved today on this morning's chemistry but POCT glucose still >200. He still feels very short of breath with activity. Currently on 5 L/min nasal
cannula and he is not on home O2. He said he had a good night last night but the night prior to that he did not. He denies chest pain, abdominal pain, fevers or chills.
Review of Systems
General: Other (Negative unless mentioned above)
Objective Data
Data Reviewed
Vital Signs / I&O / Oxygen:
Vital Signs
Temp Pulse Resp BP Pulse Ox
98.1 F 89 20 120/63 98
10/28/23 08:45 10/28/23 08:45 10/28/23 08:45 10/28/23 08:45 10/28/23 10:13
Intake and Output
10/27/23 10/28/23 10/29/23
06:59 06:59 06:59
Intake Total 1140 / 1140 1430 / 1430
Output Total 950 / 950 675 / 675
Balance 190 / 190 755 / 755
SaO2 98
Nasal Cannula flow liters per 5
minute
Physical Exam
General: Respiratory Distress (Negative) and Comfortable
HEENT: Normocephalic and Anicteric
Cardiovascular: Peripheral Edema (Negative) and Other (Normal rate)
Respiratory: Wheeze (Negative), Crackles (Garland in the middle lung castro bilaterally (posteriorly)), Rhonchi (Negative) and Non-Labored Respirations
GI: Soft, Non Distended, Non Tender and Normal Bowel Sounds
Neurology: AO x 3 and Tremors (Negative)
Skin: Warm, Dry and Cyanosis (Negative)
Labs/Micro/Reports
Lab Data
10/28/23 05:13
10/28/23 05:13
Laboratory Results
10/28/23
05:13
PT 50.6 H
INR 5.54 H*
Microbiology
10/24/23 18:26 Blood/Venous Blood Culture - Preliminary
No Growth in 72 hours- Final report to follow
10/24/23 18:26 Blood/Venous Blood Culture - Preliminary
No Growth in 72 hours- Final report to follow
10/24/23 18:26 Nose MRSA Screen - Final
No Methicillin Resistant Staphylococcus aureus isolated.
[2023-10-28] MEDS: DECADRON 6 MG IV ×2 (11:59→23:22)
--- NOTE | 2023-10-28 12:44 | W.PN.HOSP.TC ---
Today's Communication/Plan
-
wean o2
abx, steroids (wean as tolerated)
Urine Na, Creatine; Bladder and Renal US; anticipate restarting lasix
Insulin titration- avoid rapid increase in dosing due to anticipation of steroid weaning
Assessment / Plan
Assessment / Plan
Physical Exam
General: Well Developed, Well Nourished and midly tachypneic on NIV
HEENT: NormoCephalic, Moist mucous membranes and Atraumatic
Respiratory: Clear
Cardiac: S1/S2 and Regular Rhythm; No Murmur or Rub
GI: Soft, Non Tender, Non Distended and Normal Bowel Sounds; No Organomegaly
Rectal: Deferred by Provider
Musculoskeletal: No Clubbing, No Cyanosis and No Edema
Skin: No Rash
Neuro: Nonfocal/grossly intact
PLAN:
# Acute Hypoxic respiratory failure
-2/2 to pneumonia +/- Interstitial Pneumonitis in setting of Momelotinib
-PE unlikely as patient on Coumadin and supratherapeutic
-Weaned back to Midflow, maintain O2 >92%
-cultures ngtd
-COVID, influenza negative
-strep antigen, Legionella negative
-DC Vancomycin - MRSA negative;
-Cont Zosyn - D5 /7-10
-Started on empiric steroids - wean as tolerated
#GER on CKD 4
-Most likely cardiorenal
-Continue sodium bicarb
-urine Na, Creatine
-Bladder scan, renal and bladder US
-Trial lasix back if US unremarkable
#Sepsis
-2/2 to above - possible pneumonia
-cont empiric abx, f/ cultures - treatment as stated above
#Leukocytosis
-worsene with steroids
-ctm fever curve, wbc
#Chronic HFref
-F/u ECHO: no significant changes
-monitor Is&Os, daily weights
#Nonischemic myocardial injury
-Most likely secondary to acute issues
-no longer need to trend trop
-no chest pain
History of CLL/myelofibrosis
-Patient on Momelotinib
Chronic anemia
-Continue ferrous sulfate
-Blood consent signed
-maintain HgB over 7
Hyperglycemia
-2/2 to steroids
anticipate improvement with weaning
-insulin titration
Paroxysmal atrial fibrillation
Supratherapeutic INR
-Holding Warfarin
-Continue amiodarone
-Vit K today, monitor INR closely
CAD status post stents
-Continue aspirin
COPD
-Continue inhalers
Essential hypertension
-Continue metoprolol, amlodipine
Hypercholesterolemia
-Continue statin
Recent C. difficile colitis
-Continue oral vancomycin
BPH
-Continue finasteride
Full code
DVT prophylaxis�Supratherapeutic INR due to warfarin
Cardiac/renal diet
Total time spent on today's encounter was 50 minutes which included time spent in counseling the patient/family regarding diagnosis and treatment plan as listed above, goals of care, and symptom management. Case was discussed with nursing staff,
specialists, and care coordinators/case management. All labs and imaging personally reviewed by me. Remainder the time spent in detailed review of previous records, lab data, imaging, and other medical provider documentation.
Anticipated Discharge: > 48 hours
Subjective/Interval History
-
Date of Service: October 28, 2023
no acute events; on 5L
Objective Data
-
Labs:
Laboratory Results
10/28/23
05:13
WBC 27.6 H
Hgb 7.5 L
Hct 24.4 L
Plt Count 383
PT 50.6 H
INR 5.54 H*
Sodium 136
Potassium 4.1
Chloride 102
Carbon Dioxide 24
BUN 77 H
Creatinine 3.4 H
Glucose 146 H
Calcium 8.5
Total Bilirubin 1.3
AST 17
ALT 14
Alkaline Phosphatase 63
Vital Signs:
Vital Signs
Temp Pulse Resp BP Pulse Ox
97.7 F 98 20 114/61 95
10/28/23 12:04 10/28/23 12:04 10/28/23 12:04 10/28/23 12:04 10/28/23 12:04
I&O
10/27/23 10/28/23 10/29/23
06:59 06:59 06:59
Intake Total 1140 / 1140 1430 / 1430
Output Total 950 / 950 675 / 675
Balance 190 / 190 755 / 755
Review of Systems
-
History Source: Patient
All other systems: Not reviewed unless documented
Data Reviewed
-
Diagnostic Radiology: Image personally visualized and interpreted and Report Reviewed by me
Labs: Labs Reviewed by me
[2023-10-28 12:47] LABS: Glucose - Point of Care 485 mg/dl (70-99)
[2023-10-28 13:28] LABS: Glucose 396 mg/dl (70-99)
[2023-10-28] MEDS: NOVOLOG FLEXPEN-HIGH RESISTANCE 12 UNITS SC (13:31)
[2023-10-28] MEDS: MEPHYTON 5 MG PO (13:32)
[2023-10-28 14:12] LABS: Urine Sodium 27 mmol/L (30-90)
[2023-10-28 15:54] LABS: Glucose - Point of Care 302 mg/dl (70-99)
[2023-10-28] MEDS: NOVOLOG FLEXPEN-HIGH RESISTANCE 10 UNITS SC (15:59)
[2023-10-28] MEDS: NOVOLOG FLEXPEN 5 UNITS SC (15:59)
[2023-10-28] MEDS: PROSCAR 5 MG PO (17:02)
[2023-10-28] MEDS: NORVASC 10 MG PO (17:02)
[2023-10-28] MEDS: CRESTOR 5 MG PO (17:02)
[2023-10-28] MEDS: TOPROL XL 12.5 MG PO (17:02)
[2023-10-28] MEDS: FIRVANQ 125 MG PO (17:02)
[2023-10-28 21:16] LABS: Glucose - Point of Care 296 mg/dl (70-99)
[2023-10-28] MEDS: LANTUS 0.25 UNITS SC (21:17)
[2023-10-28] MEDS: NOVOLOG FLEXPEN-HIGH RESISTANCE 7 UNITS SC (21:18)
[2023-10-29] VITALS (7 sets, daily range): BP systolic 133–142; BP diastolic 50–63; PULSE 2–98; BMI 22.2
[2023-10-29] MEDS: ZOSYN 50 IV ×4 (02:13→23:11)
[2023-10-29 07:22] LABS: Hematocrit 23.6 % (39.0-52.0); Hemoglobin 7.3 g/dL (13.0-18.0); Mean Corp Hgb Conc. 30.9 g/dL (33.0-37.0); Mean Corpuscular Hgb 28.4 pg (27.0-31.0); Mean Corpuscular Volume 91.8 fL (80.0-94.0); Mean Platelet Volume 10.6 fL (7.4-10.4); Platelet Count 441 10^3/uL (130-400); Red Blood Cell Count 2.57 10^6/uL (4.70-6.10); Red Cell Dist. Width 21.1 % (11.5-14.5); White Blood Cell Count 31.8 10^3/uL (4.8-10.8)
[2023-10-29 07:27] LABS: INR 1.73; PT 20.1 Sec (11.4-14.6)
[2023-10-29 07:27] LABS: Glucose - Point of Care 152 mg/dl (70-99)
[2023-10-29 07:44] LABS: ALT (SGPT) 15 U/L (0-50); AST (SGOT) 17 U/L (17-59); Albumin 2.8 g/dl (3.5-5.0); Alkaline Phosphatase 57 U/L (38-126); Blood Urea Nitrogen 85 mg/dl (9-20); Calcium 8.4 mg/dl (8.4-10.2); Carbon Dioxide 27 mmol/L (22-30); Chloride 103 mmol/L (98-107); Estimated Creatinine Clearance 15 ml/min; Glucose 120 mg/dl (70-99); Potassium 4.6 mmol/L (3.5-5.1); Sodium 139 mmol/L (135-145); Total Bilirubin 1.3 mg/dl (0.2-1.3); eGFR 15.14
[2023-10-29 07:46] LABS: C-Reactive Protein < 5.00 mg/L (0.0-10.00)
[2023-10-29] MEDS: NOVOLOG FLEXPEN-HIGH RESISTANCE 2 UNITS SC (08:11)
[2023-10-29] MEDS: NOVOLOG FLEXPEN 5 UNITS SC (08:11)
[2023-10-29] MEDS: HUMULIN N KWIKPEN 10 UNITS SC (08:12)
[2023-10-29] MEDS: DUONEB 3 ML INH ×2 (08:33→19:32)
[2023-10-29] MEDS: PULMICORT 0.5 MG INH ×2 (08:33→19:32)
[2023-10-29] MEDS: ULORIC 40 MG PO (09:19)
[2023-10-29] MEDS: ASPIR LOW (ENTERIC COATED) 81 MG PO (09:19)
[2023-10-29] MEDS: MUCINEX 600 MG PO ×2 (09:19→20:39)
[2023-10-29] MEDS: SODIUM BICARBONATE 650 MG PO ×3 (09:19→21:33)
[2023-10-29] MEDS: PACERONE 200 MG PO (09:19)
[2023-10-29] MEDS: FARXIGA 5 MG PO (09:19)
[2023-10-29] MEDS: NITRO-DUR 0.599999999999999978 MG TRANSDERM (09:20)
[2023-10-29] MEDS: DECADRON 6 MG IV ×2 (10:30→22:53)
--- NOTE | 2023-10-29 10:38 | W.PN.PUL.V3 ---
Today's Communication / Plan
-
No change in Decadron.
Nebulizers.
Wean oxygen-reviewed with SPIN TANK TENDER.
Zosyn continues
Assessment
-
Assessment: 83-year-old male former tobacco smoker with past medical history of asthma/COPD, gout, CLL, history of PCV, mild restrictive lung disease, ABELARDO, HFpEF, A-fib s/p multiple DCCV on chronic amiodarone and warfarin, CAD with history of [place] s/p
coronary stents and myelofibrosis who presents with low oxygen level. Patient was at his dining host/oncologist being treated for CLL and was noted to be hypoxic and sent here for further evaluation. He also endorses SOB over the last several
days with activity. In triage she was saturating 87% on room air, BP 135/62, pulse rate 66 and respiratory rate 18. He was afebrile to 98 �F. Of note he was recently hospitalized here from 09/22ue to C. difficile colitis with GER.
Labs showed Hb 8.1, platelet 4 3, INR 3.79, proBNP 26,300, and TSH 4.93. COVID antigen was negative. Blood cultures were collected. CXR showed bilateral airspace/interstitial infiltrates suspicious for diffuse pneumonia. He was given a DuoNeb
treatment in the ER. 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
IVIG, history of gout, BPH
Impression:
#Acute respiratory failure with hypoxia on supplemental oxygen
#Bilateral infiltrates
#Acute on chronic anemia
#Elevated troponin � peaked at 0.144 on 10/25/2023
#Recent CDI on PO vanc
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
#HTN
#Hx of asthma/copd not in an acute exacerbation
#Hx of ABELARDO on auto-BiPAP
#History of bronchiectasis on vest therapy at home
Plan:
Overall, his respiratory status is slowly improving.
Continue supplemental option-currently on 5 L-100%-reviewed with respiratory therapy-begin to wean.
Incentive spirometry.
Nebulizers as needed.
Steroids with slow taper.
Monitor leukocytosis
Aspiration precautions.
Follow radiographically..
Mucus clearing devices including Vest therapy-reportedly has at home
Cultures reviewed.
Follow leukocytosis.
Momelotinib - on hold.
Zosyn continues
Monitor hemoglobin.
Transfuse as needed..
Diuresis if tolerated.
Monitor intake/output, weight, lower extremity edema, and renal function.
Replace electrolytes as needed.
Nephrology evaluation
Monitor blood sugar.
Insulin supplementation as needed.
DVT prophylaxis.
Nutrition
Early mobilization.
Reviewed with nursing as well as respiratory therapy.
Outpatient pulmonary follow-up
Data:
CXR 10-25-2023: Bilateral reticular and airspace opacities as above most likely related to pneumonia, without significant change. Very small bilateral effusions.
CXR 10-24-2023: The heart size is within the limits of normal; There are bilateral airspace and interstitial infiltrates, right greater than left, consistent with diffuse pneumonia. Regional skeleton intact.
TTE 10-25-2023:
Normal left ventricular wall thickness.
Normal left ventricular chamber size.
Mildly reduced left ventricular systolic function.
Left ventricular ejection fraction is 44% by Anaya's method.
Global hypokinesis, more prominent in the mid and basal segments of the
anterolateral wall.
Normal right ventricular size and function.
Mitral valve opens normally.
Mild to moderate mitral regurgitation.
Trace to mild aortic regurgitation.
Mild tricuspid regurgitation.
The IVC is of normal size and demonstrates normal respiratory variation.
Normal pericardium without effusion.
No significant change noted from 09/2023
Subjective Data
-
Date of Service:
Date of Service: October 29, 2023
Chief Complaint: Pulmonary Follow Up and Dyspnea Follow Up
Subjective:
Overall, he states that he has improved, less chest congestion, less shortness of breath, quicker recovery, no pleurisy, or abdominal pain
Review of Systems
General: Other ( per HPI)
Objective Data
Data Reviewed
Vital Signs / I&O:
Vital Signs
Temp Pulse Resp BP Pulse Ox
97.9 F 61 17 142/63 100
10/29/23 07:00 10/29/23 09:19 10/29/23 07:00 10/29/23 09:19 10/29/23 07:00
Intake and Output
10/28/23 10/29/23 10/30/23
06:59 06:59 06:59
Intake Total 1430 / 1430 920 / 920
Output Total 675 / 675 250 / 250
Balance 755 / 755 670 / 670
SaO2: 100
Nasal Cannula flow liters per minute: 5
Physical Exam
General: Respiratory Distress (Negative) and Comfortable
HEENT: Normocephalic and Anicteric
Cardiovascular: Peripheral Edema (Negative) and Other (Normal rate)
Respiratory: Wheeze (Negative), Crackles (few basilar), Rhonchi (Negative) and Non-Labored Respirations
GI: Soft, Non Distended, Non Tender and Normal Bowel Sounds
Neurology: Awake, Alert and Tremors (Negative)
Skin: Warm, Dry, Good Color, Cyanosis (Negative), Jaundice (n) and Rash (n)
Labs/Micro/Reports
Lab Data
10/29/23 06:40
10/29/23 06:40
Laboratory Results
10/29/23
06:40
PT 20.1 H
INR 1.73 D
Microbiology
10/24/23 18:26 Blood/Venous Blood Culture - Preliminary
No Growth in 4 days- Final report to follow
10/24/23 18:26 Blood/Venous Blood Culture - Preliminary
No Growth in 4 days- Final report to follow
10/24/23 18:26 Nose MRSA Screen - Final
No Methicillin Resistant Staphylococcus aureus isolated.
--- NOTE | 2023-10-29 10:55 | W.PN.HOSP.TC ---
Addendum entered and electronically signed by Jorje Vera MD 10/29/23 16:23:
acute on chronic HFrEF
Original Note:
Today's Communication/Plan
-
see bold
Assessment / Plan
Assessment / Plan
Gen: NAD, awake and alert, appears chronically ill
Eyes: EOMI, PERRLA, no scleral icterus.
Neck: supple.
CV: RRR, +S1/S2, no m/r/g.
Resp: CTAB, no rales, wheezes, or rhonchi.
Abd: +BS, soft, NT, ND
Skin: No rashes.
Neuro: CN 2-12 intact, non-focal.
Psych: Normal mood and affect.
10/24/23 18:26 Blood/Venous Blood Culture - Preliminary
No Growth in 4 days- Final report to follow
10/24/23 18:26 Blood/Venous Blood Culture - Preliminary
No Growth in 4 days- Final report to follow
10/24/23 18:26 Nose MRSA Screen - Final
No Methicillin Resistant Staphylococcus aureus isolated.
10/24/23 18:26 Urine Legionella Urinary Antigen - Final
Negative for Legionella pneumophila Serogroup 1 antigen.
A negative result does not rule out the possiblity of
Legionella infection due to other serogroups or species of
Legionella. Clinical correlation is recommended.
10/24/23 18:26 Urine Streptococcus pneumoniae Antigen (M - Final
Negative for Streptococcus pneumoniae antigen.
A negative result does not exclude infection with
Streptococcus pneumoniae. Clinical correlation is
recommended.
10/24/23 18:26 Nasal Swab Influenza Types A & B (YOBANY) - Final
Negative for Influenza A & B, NAAT
Negative results must be combined with clinical observations
and patient history.
Nucleic Acid Amplification test (NAAT)performed on the
[employer] platform.
CXR 10/25/23: Bilateral reticular and airspace opacities as above most likely related to pneumonia, without significant change. Very small bilateral effusions.
Echo: Normal left ventricular wall thickness.
Normal left ventricular chamber size.
Mildly reduced left ventricular systolic function.
Left ventricular ejection fraction is 44% by Anaya's method.
Global hypokinesis, more prominent in the mid and basal segments of the
anterolateral wall.
Normal right ventricular size and function.
Mitral valve opens normally.
Mild to moderate mitral regurgitation.
Trace to mild aortic regurgitation.
Mild tricuspid regurgitation.
The IVC is of normal size and demonstrates normal respiratory variation.
Normal pericardium without effusion.
No significant change noted from 09/2023
Renal U/S:
1. Negative for hydronephrosis. There is increased renal cortical echogenicity, nonspecific but may be seen in association with medical renal disease.
2. Small benign left renal cysts as seen prior. Probable subcentimeter calculus at the left lower pole.
3. Limited evaluation of the urinary bladder as above. Post void residual of 21 mL.
Acute Hypoxic respiratory failure:
-due to pneumonia +/- Interstitial Pneumonitis in setting of Momelotinib
-sepsis due to PNA
-PE unlikely as patient on Coumadin and supratherapeutic
-was on high flow, now weaned to 5L
-all Cxs NG as above
-COVID/Flu negative
-strep/Legionella Ags negative
-MRSA screen NEG, Vanco stopped
-cont Zosyn/Decadron
-Significant leukocytosis, a component of which is likely steroid-induced
-afebrile
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
-Most likely due to CRS
-Currently on sodium bicarb, HCO3- 27, may need to decrease
-renal U/S above, no hydro
-c/s renal
Chronic HFrEF:
-Echo above and without significant change from September 2023
-I/Os, daily wts (stable)
-cont BB/SGLT2
-home lasix on hold
Steroid-induced hyperglycemia:
-a1c 5.2% on 10/03/23
-pt received 90U total insulin on 10/28/23
-Increase Lantus to 40U, premeal Novolog to 10U
-c/s diabetes SUPPORT SERVICES TECH
Other problems:
Acute nonischemic myocardial injury likely due to pneumonia/sepsis
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
Anemia of chronic disease: Continue iron sulfate. Transfuse for Hb < 7
Paroxysmal atrial fibrillation: with supratherapeutic INR, s/p Vit K, Cont Amio. Restart coumadin.
CAD: h/o stents, cont ASA/statin/BB
COPD: cont Pulmicort/DuoNebs
Essential hypertension: Cont BB/Norvasc
Hypercholesterolemia: cont statin
Recent C. difficile colitis: Continue oral vancomycin
BPH: Continue finasteride
FULL/coumadin
Total time spent on today's encounter was 51 minutes which included time spent in counseling the patient/family regarding diagnosis and treatment plan as listed above, goals of care, and symptom management. Case was discussed with nursing staff,
specialists, and care coordinators/case management. All labs and imaging personally reviewed by me. Remainder the time spent in detailed review of previous records, lab data, imaging, and other medical provider documentation.
Anticipated Discharge: > 48 hours
Subjective/Interval History
-
Date of Service: October 29, 2023
Denies chest pain or shortness of breath.
Objective Data
-
Labs:
Laboratory Results
10/29/23
06:40
WBC 31.8 H
Hgb 7.3 L
Hct 23.6 L
Plt Count 441 H
PT 20.1 H
INR 1.73 D
Sodium 139
Potassium 4.6
Chloride 103
Carbon Dioxide 27
BUN 85 H
Creatinine 3.8 H
Glucose 120 H
Calcium 8.4
Total Bilirubin 1.3
AST 17
ALT 15
Alkaline Phosphatase 57
Vital Signs:
Vital Signs
Temp Pulse Resp BP Pulse Ox
97.9 F 61 17 142/63 100
10/29/23 07:00 10/29/23 09:19 10/29/23 07:00 10/29/23 09:19 10/29/23 10:38
I&O
10/28/23 10/29/23 10/30/23
06:59 06:59 06:59
Intake Total 1430 / 1430 920 / 920
Output Total 675 / 675 250 / 250
Balance 755 / 755 670 / 670
[2023-10-29 11:06] LABS: Glucose - Point of Care 377 mg/dl (70-99)
--- NOTE | 2023-10-29 11:48 | PTCARENOTE ---
Pt was educated on position changes to avoid breakdown. Pt stated he moves around all day long. Pt just left for testing and has been in same position since breakfast at 730. Upon arrival back to the room from [place] and , pt will go in the chair
that has been set up for him bedside
--- NOTE | 2023-10-29 12:20 | PN.DE.MGMTRT ---
Insulin Management
- -
10/29/2023: Diabetes Management Consult
83 year old male admitted on 10/23 with Acute Hypoxic respiratory failure 2/2 to pneumonia +/- Interstitial Pneumonitis in setting of Momelotinib. Was started on stress dose steroids- Dexamethasone 4mg Q12 hrs with subsequent Hyperglycemia. Current
A1C 5.2%, Pt has no known hx of Diabetes Mellitus.
Current diabetes regimen includes Lantus 25 units @ HS that has been increased to [address] Vera, NovoLog 10 units AC and NPH 10 units daily in AM with high corrective insulin.
Pt awake, alert, oriented x3, sitting up in chair, offers no complaints and able to discuss diabetes mgt. States that he is not diabetic but has a glucose monitor at home and periodically checks his fasting blood sugars because he has been off and
on oral steroids.
Pt is noted for ongoing Hyperglycemia while on steroids. Glucose has trended up to 377 before lunch today.
Will change Lantus administration time to AM and switch back to 25 units. 1st dose to be administered now and then at 8AM thereafter.
Cont 10 units AC. Will STOP NPH insulin order. Anticipate improvement with steroid weaning.
Diabetes plan of care discussed with pt and Pt's Nurse.
Diabetes History
- -
Pre-Admission Diabetes Regimen
10/29/23
06:40
Creatinine 3.8 H
Insulin Pump Settings
IP Diabetes Regimen
10/28/23 10/28/23 10/28/23
12:45 13:03 15:53
Glucose 396 H
POC Glucose 485 H* 302 H
10/28/23 10/29/23 10/29/23
21:15 06:40 07:26
Glucose 120 H
POC Glucose 296 H 152 H
10/29/23
11:05
Glucose
POC Glucose 377 H
Meal type: Dinner
Meal type: Lunch
Meal type: Breakfast
Amount consumed: 100%
Amount consumed: 100%
Amount consumed: 100%
Patient Education
[2023-10-29] MEDS: LANTUS 0.25 UNITS SC (13:37)
[2023-10-29] MEDS: NOVOLOG FLEXPEN 10 UNITS SC ×2 (13:38→17:14)
[2023-10-29] MEDS: NOVOLOG FLEXPEN-HIGH RESISTANCE 12 UNITS SC (13:38)
--- NOTE | 2023-10-29 15:39 | PN.CDI ---
CDI
- -
CDI:
Physician Documentation Request
Admit Date: 10/24/23 18:57
Dear Doctor Jody,
Please review the following and provide your response in the progress notes.
Clinical Indicators:
10/23 Pt admitted with Sepsis, Pneumonia
10/23 BNP [id number]
10/23 and 10/24 Pt received IV Lasix
10/24 PN: 'Acute HFref'
10/28 PN: 'Chronic HFrEF'
Clarify which of the following accurately represents the acuity of the Systolic heart failure. Possible options might include:
Acute
Acute on Chronic
Chronic
Other
Use of terms such as suspected, likely, concern for, or probable (associated with a specific diagnosis that is being evaluated, monitored, or treated as if it exists) are acceptable and can be coded in the inpatient setting, when documented at the
time of discharge.
Thank you,
[place] Garrett RN, BSN
CDI Specialist
Available via [facility] [employer]
Please use your independent medical judgment in providing your response.
--- NOTE | 2023-10-29 15:52 | W.CON.NEPH ---
Consultation
-
Date/Time Consultation Requested: 10/29/2023 11:01
Date/Time Consultation Performed: 10/29/2023 3:53PM
Requesting Provider: Jorje Vera
Performing Provider: Frances Coy
Reason for Consultation: GER on CKD
Medical History
-
Chief Complaint: GER on CKD
History of Present Illness:
Mr. Matthews is an 83YOM with PMH of CKD4, HFrEF, CLL/myelofibrosis, anemia of chronic disease, pAFib, CAD, COPD, HTN, DLD, recent Cdiff, BPH who presented to the hospital for SOB with exertion. He went for his outpatient Aranesp infusion and was found
to be severely hypoxic. He was sent to the hospital for further management. He has been treated with PNA vs. ADHF vs. Interstitial pneumonitis. States that his breathing is better. States that he feels good other than fatigue. Is using oxygen today
but is not on oxygen at home.
He follows with Dr. Najera as an outpatient. Planned to see him 11/10. Cr baseline appears to be 2.5-3.1. Now elevated to 3.8 today. Denies trouble with urination, hematuria, dysuria. Urine Na low at 27. KUS negative for hydro, small cysts. PVR of
21ml.
Past Medical History
CLL, myelofibrosis, atrial fibrillation, CAD status post stents, HFpEF, COPD, hypertension, hypercholesterolemia, diabetes, CKD4, anemia, C. difficile
Past Medical History: Other
Past Surgical History: Other (cardiac stents)
Social History
Tobacco: Former Smoker
Alcohol: None
Drug: None
Family History
Family History: Not Pertinent
Allergies / Home Medications
Allergy/AdvReac Type Severity Reaction Status Date / Time
atorvastatin Allergy ? M-S pain Verified 10/24/23 14:01
immune globulin,gamma (IgG) Allergy Anaphylaxis Verified 10/24/23 14:01
human
prednisone Allergy Unknown Verified 10/24/23 14:01
�Medication �Instructions �Recorded �Confirmed �Type
rosuvastatin 5 mg tablet 5 mg PO QPM High Cholesterol 07/09/19 10/24/23 History
febuxostat 40 mg tablet 40 mg PO DAILY uric acid 04/29/23 10/24/23 History
ferrous sulfate 325 mg (65 mg 325 mg PO Q48H@1800 Supplement ##0 04/29/23 10/24/23 History
iron) tablet
finasteride 5 mg tablet 5 mg PO QPM BPH 04/29/23 10/24/23 History
nitroglycerin 0.6 mg/hr 1 patch transdermal DAILY Heart 04/29/23 10/24/23 History
transdermal 24 hour patch Disease/Condition ##0
(Nitro-Dur)
amiodarone 200 mg tablet 200 mg PO DAILY #30 tabs 06/13/23 10/24/23 Rx
aspirin 81 mg tablet,delayed 81 mg PO DAILY Blood Clot 06/20/23 10/24/23 History
release Prevention/Tx
metoprolol succinate 25 mg 12.5 mg PO QPM Heart 06/20/23 10/24/23 History
tablet,extended release 24 hr Disease/Condition
guaifenesin 600 mg tablet, 600 mg PO BID Neurological 09/01/23 10/24/23 History
extended release 12 hr Condition
Aranesp 1 dose SC Q3W anemia 09/23/23 10/24/23 History
amlodipine 10 mg tablet 10 mg PO QPM Blood Pressure 09/23/23 10/24/23 History
budesonide 0.5 mg/2 mL suspension 0.5 mg inhalation R BIDPRN PRN sob 09/23/23 10/24/23 History
for nebulization
ipratropium 0.5 mg-albuterol 3 mg 3 ml inhalation R BIDPRN PRN sob 09/23/23 10/24/23 History
(2.5 mg base)/3 mL nebulization
soln
warfarin 1 mg tablet (Jantoven) 3 mg PO QPM Blood Clot 09/23/23 10/24/23 History
Prevention/Tx
vancomycin 125 mg capsule 125 mg PO DIRECTED #90 caps 09/26/23 10/24/23 Rx
sodium bicarbonate 650 mg tablet 650 mg PO TID #90 tabs 09/27/23 10/24/23 Rx
acetaminophen 500 mg tablet 500 mg PO DAILYPRN PRN mild pain 10/24/23 10/24/23 History
(Tylenol Extra Strength)
carboxymethylcellulose sodium 1 % 1 drp BOTH EYES DAILYPRN PRN dry 10/24/23 10/24/23 History
eye liquid gel drops eyes
dapagliflozin propanediol 5 mg 5 mg PO DAILY Diabetes 10/24/23 10/24/23 History
tablet (Farxiga)
momelotinib 200 mg tablet (Ojjaara) 200 mg PO QPM Myelofibrosis 10/24/23 10/24/23 History
Review of Systems
-
History Source: Patient
All other systems: Negative unless noted
Constitutional: Fatigue
Physical Exam
Vital Signs
Vital Signs
Temp Pulse Resp BP Pulse Ox
98.1 F 69 16 133/55 94
10/29/23 11:00 10/29/23 11:00 10/29/23 11:00 10/29/23 11:00 10/29/23 12:59
Lab Results
WBC 31.8 10^3/uL (4.8-10.8) H 10/29/23 06:40
RBC 2.57 10^6/uL (4.70-6.10) L 10/29/23 06:40
Hgb 7.3 g/dL (13.0-18.0) L 10/29/23 06:40
Hct 23.6 % (39.0-52.0) L 10/29/23 06:40
Plt Count 441 10^3/uL (130-400) H 10/29/23 06:40
Sodium 139 mmol/L (135-145) 10/29/23 06:40
Potassium 4.6 mmol/L (3.5-5.1) 10/29/23 06:40
Chloride 103 mmol/L (98-107) 10/29/23 06:40
Carbon Dioxide 27 mmol/L (22-30) 10/29/23 06:40
BUN 85 mg/dl (9-20) H 10/29/23 06:40
Creatinine 3.8 mg/dL (0.7-1.3) H 10/29/23 06:40
eGFR 15.14 10/29/23 06:40
Glucose 120 mg/dl (70-99) H 10/29/23 06:40
Calcium 8.4 mg/dl (8.4-10.2) 10/29/23 06:40
Phosphorus 4.9 mg/dl (2.5-4.5) H 10/27/23 06:27
Cmh-W-Tusirsqnrlc Pept 55376 pg/ml 10/28/23 05:13
Albumin 2.8 g/dl (3.5-5.0) L 10/29/23 06:40
Physical Exam
General: AOx3, No Distress and Nontoxic
HEENT: PERRL, EOMI, Anicteric, Conjunctivae Clear, Ear/Nose Intact, Hearing Normal and Oropharynx Clear/Moist
Respiratory: Crackels, Normal Excursion and Nonlabored Respirations
Cardiac: S1/S2, Regular Rate/Rhythm and No Edema
Breast: N/A
Abdomen: Soft and Nontender
Rectal: Deferred by Provider
Genito-urinary: No Costovertebral Tender
Musculoskeletal: No Clubbing, No Cyanosis and No Edema
Skin: No Rash, Warm, Dry, No Clubbing, No Cyanosis and Normal Turgor
Neuro: Nonfocal/Grossly Intact
Hematologic/Lymphatic: No Cervical Lymphadenopathy
Psych: Mood/afflect pleasant and Insight/judgement good
Data Reviewed
-
Radiology: Report Reviewed by me (CXR with bilateral fluffy infiltrates)
Ultrasound: Report Reviewed by me (no hydronephrosis noted on renal ultrasound)
Assessment/Plan
-
Assessment:
GER on CKD (bl 2.5-3.1), follows with Dr. Emery
acute hypoxic respiratory failure
HFrEF
Hyperglycemia
anemia
Cdiff colitis
BPH
Afib
Plan:
- ddx: AIN vs. CRS
- obtain urine studies including urine eos (recent exposure to Ojjaara)
- urine sodium low at 27 --> cardiorenal?
- less likely to be post obstructive as KUS without hydro
- hold SGLT2-inhibitor
- continue to trend BMPs
- if UA is bland, could try gentle diuresis tomorrow but patient overall appears euvolemic.
--- NOTE | 2023-10-29 15:53 | WOUNDNOTE ---
[facility] RN note: Patient admitted with COPD,hypoxia and anemia.
See H&P for complete history.
PMH: CLL, CKD, CM, HF, a fib (Coumadin), pneumonia, HTN, DM, polycythemia vera, ABELARDO, myelofibrosis, gout, COPD, anemia.
Wound Location and type/assessment: Patient has full thickness coccyx/ perianal ulcer suspect healing PI stage 3. Patient known to service last seen June 2023. Wounds improved since last seen however now excessively bleeding, gauze saturated
with blood. Direct pressure done and still bleeding. Patient is on Eliquis, multiple bruising on arms. using oxygen via NC, ear rims intact. Heels intact, patient able to turn self easily in bed. Patient able to make it to commode for BM, not
incontinent patient reports.
Appetite: good. Encouraged protein in diet, patient states he tries.
Pressure redistribution devices in place:Air overlay, asked nurse to apply more air, palm checked. Air chair cushion in use when sitting.
Plan: Dressing changed on coccyx, after applying pressure. Still bleeding applied Surgi foam to base of wound then alginate and folded silicone foam. Asked patient to stay onto side for awhile, Nurse Shanon to get a wedge foam to remind patient to
stay on side. Patient to take air chair cushion when discharged.
[place] texted Dr. Vera who approved of the above wound care, showed nurse how to do.
Care plan to be updated and will follow as needed.
Note to case management requested for discharge: VN if goes home. Air mattress.
Recommend follow up at wound care center upon discharge.
[2023-10-29 16:52] LABS: Glucose - Point of Care 330 mg/dl (70-99)
[2023-10-29] MEDS: FIRVANQ 125 MG PO (17:12)
[2023-10-29] MEDS: TOPROL XL 12.5 MG PO (17:12)
[2023-10-29] MEDS: COUMADIN 3 MG PO (17:13)
[2023-10-29] MEDS: PROSCAR 5 MG PO (17:13)
[2023-10-29] MEDS: CRESTOR 5 MG PO (17:13)
[2023-10-29] MEDS: FEOSOL 325 MG PO (17:14)
[2023-10-29] MEDS: NORVASC 10 MG PO (17:14)
[2023-10-29] MEDS: NOVOLOG FLEXPEN-MODERATE RESISTANCE 7 UNITS SC (17:14)
[2023-10-29 21:37] LABS: Glucose - Point of Care 272 mg/dl (70-99)
[2023-10-30] VITALS (7 sets, daily range): BP systolic 115–134; BP diastolic 45–61; PULSE 2–90; O2SAT 96; BMI 22.5
[2023-10-30 03:23] LABS: Urine Albumin 1+ (Neg - Trace); Urine Bilirubin Negative (Negative); Urine Character Clear (Clear); Urine Color Yellow; Urine Glucose 3+ (Negative); Urine Ketone Trace (Negative); Urine Leukocyte Negative (Negative); Urine Nitrite Negative (Negative); Urine Occult Blood Negative (Negative); Urine Urobilinogen Negative (Neg - 1+)
[2023-10-30 03:54] LABS: Protein/creatinine Ratio 0.6; Urine Protein 55 mg/dl
[2023-10-30 04:01] LABS: Urine Amorphous Seen; Urine Bacteria Moderate (Negative); Urine White Cell 0-2 /HPF (0-5)
[2023-10-30 05:49] LABS: Body Fluid for Eosinophils No Eosinophils seen
[2023-10-30 06:02] LABS: Hematocrit 23.6 % (39.0-52.0); Mean Corp Hgb Conc. 29.7 g/dL (33.0-37.0); Mean Corpuscular Volume 91.1 fL (80.0-94.0); Mean Platelet Volume 10.1 fL (7.4-10.4); Platelet Count 360 10^3/uL (130-400); Red Blood Cell Count 2.59 10^6/uL (4.70-6.10); Red Cell Dist. Width 20.6 % (11.5-14.5); White Blood Cell Count 35.5 10^3/uL (4.8-10.8)
[2023-10-30 06:31] LABS: ALT (SGPT) 17 U/L (0-50); AST (SGOT) 22 U/L (17-59); Albumin 2.7 g/dl (3.5-5.0); Alkaline Phosphatase 68 U/L (38-126); Blood Urea Nitrogen 90 mg/dl (9-20); Calcium 8.1 mg/dl (8.4-10.2); Carbon Dioxide 25 mmol/L (22-30); Chloride 101 mmol/L (98-107); Estimated Creatinine Clearance 14 ml/min; Glucose 185 mg/dl (70-99); Sodium 137 mmol/L (135-145); Total Bilirubin 1.1 mg/dl (0.2-1.3); Total Protein 4.7 g/dl (6.3-8.2); eGFR 13.82
[2023-10-30 07:00] LABS: Glucose - Point of Care 203 mg/dl (70-99)
[2023-10-30] MEDS: DUONEB 3 ML INH ×2 (07:16→19:11)
[2023-10-30] MEDS: PULMICORT 0.5 MG INH ×2 (07:16→19:11)
--- NOTE | 2023-10-30 07:49 | PN.DE.MGMTRT ---
Insulin Management
- -
10/30/2023: Diabetes Management F/U:
83 year old male with PMH: CKD4, HFrEF, CLL/myelofibrosis, anemia of chronic disease, pAFib, CAD, COPD, HTN, DLD, recent Cdiff, BPH
Admitted on 10/23 with Acute Hypoxic respiratory failure 2/2 to pneumonia +/- Interstitial Pneumonitis in setting of Momelotinib. Was started on stress dose steroids- Dexamethasone 4mg Q12 hrs with subsequent Hyperglycemia. Current A1C 5.2%, Pt has
no known hx of Diabetes Mellitus.
Current diabetes regimen includes Lantus 25 units @ HS that has been increased to [address] Vera, NovoLog 10 units AC and NPH 10 units daily in AM with high corrective insulin. States that he is not diabetic but has a glucose monitor at home
and periodically checks his fasting blood sugars because he has been off and on oral steroids.
Pt awake, alert, oriented x3, sitting up in chair, offers no complaints and able to discuss diabetes mgt.
Glucose has improved to 200s, pt remains on steroids contributing to ongoing Hyperglycemia. FBG 185 and 203 pre-breakfast this AM.
Will increase AM Lantus dose to 27 units and NovoLog to 12 units AC.
Anticipate improvement with steroid weaning.
Diabetes plan of care discussed with pt and Pt's Nurse.
Diabetes History
- -
Pre-Admission Diabetes Regimen
10/30/23
05:05
Creatinine 4.1 H*
Insulin Pump Settings
IP Diabetes Regimen
10/29/23 10/29/23 10/29/23
11:05 16:51 21:36
Glucose
POC Glucose 377 H 330 H 272 H
10/30/23 10/30/23
05:05 06:59
Glucose 185 H
POC Glucose 203 H
Meal type: Lunch
Meal type: Breakfast
Amount consumed: 100%
Amount consumed: 100%
Patient Education
[2023-10-30] MEDS: ASPIR LOW (ENTERIC COATED) 81 MG PO (09:02)
[2023-10-30] MEDS: SODIUM BICARBONATE 650 MG PO ×3 (09:02→21:19)
[2023-10-30] MEDS: ZOSYN 50 IV ×3 (09:02→23:05)
[2023-10-30] MEDS: MUCINEX 600 MG PO ×2 (09:03→20:09)
[2023-10-30] MEDS: PACERONE 200 MG PO (09:03)
[2023-10-30] MEDS: ULORIC 40 MG PO (09:03)
[2023-10-30] MEDS: NITRO-DUR 0.599999999999999978 MG TRANSDERM (09:03)
[2023-10-30] MEDS: LANTUS 0.270000000000000018 UNITS SC (09:03)
[2023-10-30] MEDS: NOVOLOG FLEXPEN 12 UNITS SC ×3 (09:04→17:06)
[2023-10-30] MEDS: NOVOLOG FLEXPEN-MODERATE RESISTANCE 3 UNITS SC (09:05)
[2023-10-30] MEDS: NOVOLOG FLEXPEN SC (09:10)
--- NOTE | 2023-10-30 10:03 | W.PN.PUL.V3 ---
Today's Communication / Plan
-
. Wean oxygen.
Decrease Decadron.
Increase activity.
Antibiotics
Assessment
-
Assessment: 83-year-old male former tobacco smoker with past medical history of asthma/COPD, gout, CLL, history of PCV, mild restrictive lung disease, ABELARDO, HFpEF, A-fib s/p multiple DCCV on chronic amiodarone and warfarin, CAD with history of [place] s/p
coronary stents and myelofibrosis who presents with low oxygen level. 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 He also endorses SOB over the last several
days with activity. In triage she was saturating 87% on room air, BP 135/62, pulse rate 66 and respiratory rate 18. He was afebrile to 98 �F. Of note he was recently hospitalized here from 09/22 � 09/27/2023 due to C. difficile colitis with GER.
Labs showed Hb 8.1, platelet 4 3, INR 3.79, proBNP 26,300, and TSH 4.93. COVID antigen was negative. Blood cultures were collected. CXR showed bilateral airspace/interstitial infiltrates suspicious for diffuse pneumonia. He was given a DuoNeb
treatment in the ER. He was initially admitted to the IMU, however due to worsening respiratory distress he was transferred to the ICU, started on BiPAP and now sales designer consulted for additional management/recommendations.
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
difficile, history of lower lobe bronchiectasis, history of polycythemia vera on Agrylin, history of mild restrictive lung disease, ABELRADO on auto-BiPAP, chronic rhinitis, history of cold agglutinin disease, history of hypogammaglobinemia intolerant to
IVIG, history of gout, BPH
Impression:
#Acute respiratory failure with hypoxia on supplemental oxygen
#Bilateral infiltrates
#Acute on chronic anemia
#Elevated troponin � peaked at 0.144 on 10/25/2023
#Recent CDI on PO vanc
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
#HTN
#Hx of asthma/copd not in an acute exacerbation
#Hx of ABELARDO on auto-BiPAP
#History of bronchiectasis on vest therapy at home
Plan:
.
Respiratory status still somewhat tenuous, but overall improved-faster recovery
Continue supplemental option-currently on 5 L-100%-reviewed with respiratory therapy-begin to wean..
BiPAP 05/07 with 5 L of oxygen as tolerated
Incentive spirometry.
Nebulizers as needed.
Steroids with slow taper-currently on Decadron 6 mg IV every 12 hours-reduced to 4 mg every 12 hours
Monitor leukocytosis
Aspiration precautions.
Follow radiographically..
Mucus clearing devices including Vest therapy-reportedly has at home
Cultures reviewed.
Follow leukocytosis.
Momelotinib - on hold.
Zosyn continues
Vancomycin orally continues
Followr hemoglobin.
Transfuse as needed..
Diuresis if tolerated.
Monitor intake/output, weight, lower extremity edema, and renal function.
Replace electrolytes as needed.
Nephrology evaluation
Monitor blood sugar.
Insulin supplementation as needed.
DVT prophylaxis.
Nutrition
Early mobilization.
Reviewed with nursing as well as respiratory therapy.
Outpatient pulmonary [id number] states she follows up at [place] -Dr. Parson told her to obtain films on disc to bring to her next appointment
Data:
CXR 10-25-2023: Bilateral reticular and airspace opacities as above most likely related to pneumonia, without significant change. Very small bilateral effusions.
CXR 10-24-2023: The heart size is within the limits of normal; There are bilateral airspace and interstitial infiltrates, right greater than left, consistent with diffuse pneumonia. Regional skeleton intact.
TTE 10-25-2023:
Normal left ventricular wall thickness.
Normal left ventricular chamber size.
Mildly reduced left ventricular systolic function.
Left ventricular ejection fraction is 44% by Anaya's method.
Global hypokinesis, more prominent in the mid and basal segments of the
anterolateral wall.
Normal right ventricular size and function.
Mitral valve opens normally.
Mild to moderate mitral regurgitation.
Trace to mild aortic regurgitation.
Mild tricuspid regurgitation.
The IVC is of normal size and demonstrates normal respiratory variation.
Normal pericardium without effusion.
No significant change noted from 09/2023
Subjective Data
-
Date of Service:
Date of Service: October 30, 2023
Chief Complaint: Pulmonary Follow Up and Dyspnea Follow Up
Subjective:
Overall short of breath has improved, recovered has improved, still on 5 L, no chest pain or abdominal pain
Review of Systems
General: Other (. HPI)
Objective Data
Data Reviewed
Vital Signs / I&O:
Vital Signs
Temp Pulse Resp BP Pulse Ox
97.8 F 60 20 121/50 95
10/30/23 07:55 10/30/23 09:03 10/30/23 07:55 10/30/23 09:03 10/30/23 07:55
Intake and Output
10/29/23 10/30/23 10/31/23
06:59 06:59 06:59
Intake Total 920 / 920 560 / 560
Output Total 250 / 250 100 / 100
Balance 670 / 670 460 / 460
SaO2: 95
Nasal Cannula flow liters per minute: 5
Physical Exam
General: Respiratory Distress (Negative) and Comfortable
HEENT: Normocephalic and Anicteric
Cardiovascular: Peripheral Edema (Negative) and Other (Normal rate)
Respiratory: Wheeze (Negative), Crackles (few basilar), Rhonchi (Negative) and Non-Labored Respirations
GI: Soft, Non Distended, Non Tender and Normal Bowel Sounds
Neurology: Awake, Alert and Tremors (Negative)
Skin: Warm, Dry, Good Color, Cyanosis (Negative), Jaundice (n) and Rash (n)
Labs/Micro/Reports
Lab Data
10/30/23 05:05
10/30/23 05:05
Microbiology
10/24/23 18:26 Blood/Venous Blood Culture - Final
No Growth - Final Report
10/24/23 18:26 Blood/Venous Blood Culture - Final
No Growth - Final Report
--- NOTE | 2023-10-30 11:06 | W.PN.HOSP.TC ---
Today's Communication/Plan
-
see bold
Assessment / Plan
Assessment / Plan
Gen: NAD, awake and alert, appears chronically ill
Eyes: EOMI, PERRLA, no scleral icterus.
Neck: supple.
CV: remains RRR, +S1/S2, no m/r/g.
Resp: remains CTAB, no rales, wheezes, or rhonchi.
Abd: remains +BS, soft, NT, ND
Skin: No rashes.
Neuro: CN 2-12 intact, non-focal.
Psych: Normal mood and affect.
10/24/23 18:26 Blood/Venous Blood Culture - Final
No Growth - Final Report
10/24/23 18:26 Blood/Venous Blood Culture - Final
No Growth - Final Report
10/24/23 18:26 Nose MRSA Screen - Final
No Methicillin Resistant Staphylococcus aureus isolated.
10/24/23 18:26 Urine Legionella Urinary Antigen - Final
Negative for Legionella pneumophila Serogroup 1 antigen.
A negative result does not rule out the possiblity of
Legionella infection due to other serogroups or species of
Legionella. Clinical correlation is recommended.
10/24/23 18:26 Urine Streptococcus pneumoniae Antigen (M - Final
Negative for Streptococcus pneumoniae antigen.
A negative result does not exclude infection with
Streptococcus pneumoniae. Clinical correlation is
recommended.
10/24/23 18:26 Nasal Swab Influenza Types A & B (YOBANY) - Final
Negative for Influenza A & B, NAAT
Negative results must be combined with clinical observations
and patient history.
Nucleic Acid Amplification test (NAAT)performed on the
[employer] platform.
CXR 10/25/23: Bilateral reticular and airspace opacities as above most likely related to pneumonia, without significant change. Very small bilateral effusions.
Echo: Normal left ventricular wall thickness.
Normal left ventricular chamber size.
Mildly reduced left ventricular systolic function.
Left ventricular ejection fraction is 44% by Anaya's method.
Global hypokinesis, more prominent in the mid and basal segments of the
anterolateral wall.
Normal right ventricular size and function.
Mitral valve opens normally.
Mild to moderate mitral regurgitation.
Trace to mild aortic regurgitation.
Mild tricuspid regurgitation.
The IVC is of normal size and demonstrates normal respiratory variation.
Normal pericardium without effusion.
No significant change noted from 09/2023
Renal U/S:
1. Negative for hydronephrosis. There is increased renal cortical echogenicity, nonspecific but may be seen in association with medical renal disease.
2. Small benign left renal cysts as seen prior. Probable subcentimeter calculus at the left lower pole.
3. Limited evaluation of the urinary bladder as above. Post void residual of 21 mL.
Acute Hypoxic respiratory failure:
-due to pneumonia +/- Interstitial Pneumonitis in setting of Momelotinib
-sepsis due to PNA
-PE unlikely as patient on Coumadin and supratherapeutic
-was on high flow, now weaned to 5L
-all Cxs NG as above
-COVID/Flu negative
-strep/Legionella Ags negative
-MRSA screen NEG, Vanco stopped
-cont Zosyn/Decadron
-Significant leukocytosis, a component of which is likely steroid-induced
-afebrile
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
-Cr continues to worsen
-AIN vs CRS
-Cont sodium bicarb
-renal U/S above, no hydro
-renal following. Pt is deciding on whether or not he would want hemodialysis if needed.
-check UEos
Chronic HFrEF:
-Echo above and without significant change from September 2023
-I/Os, daily wts (stable)
-cont BB
-home lasix on hold
Steroid-induced hyperglycemia:
-a1c 5.2% on 10/03/23
-diabetes HAIR DESIGNER following
-cont Lantus 27U, premeal Novolog 12U
-SSI/accuchecks
Other problems:
Acute nonischemic myocardial injury likely due to pneumonia/sepsis
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
Anemia of chronic disease: Continue iron sulfate. Transfuse for Hb < 7
Paroxysmal atrial fibrillation: with supratherapeutic INR, s/p Vit K, Cont Amio. cont coumadin.
CAD: h/o stents, cont ASA/statin/BB
COPD: cont Pulmicort/DuoNebs
Essential hypertension: Cont BB/Norvasc
Hypercholesterolemia: cont statin
Recent C. difficile colitis: Continue oral vancomycin
BPH: Continue finasteride
FULL/coumadin
Total time spent on today's encounter was 52 minutes which included time spent in counseling the patient/family regarding diagnosis and treatment plan as listed above, goals of care, and symptom management. Case was discussed with nursing staff,
specialists, and care coordinators/case management. All labs and imaging personally reviewed by me. Remainder the time spent in detailed review of previous records, lab data, imaging, and other medical provider documentation.
Anticipated Discharge: > 48 hours
Subjective/Interval History
-
Date of Service: October 30, 2023
No new complaints.
Objective Data
-
Labs:
Laboratory Results
10/30/23
05:05
WBC 35.5 H
Hgb 7.0 L
Hct 23.6 L
Plt Count 360
Sodium 137
Potassium 4.0
Chloride 101
Carbon Dioxide 25
BUN 90 H
Creatinine 4.1 H*
Glucose 185 H
Calcium 8.1 L
Total Bilirubin 1.1
AST 22
ALT 17
Alkaline Phosphatase 68
Vital Signs:
Vital Signs
Temp Pulse Resp BP Pulse Ox
97.8 F 60 20 121/50 95
10/30/23 07:55 10/30/23 09:03 10/30/23 07:55 10/30/23 09:03 10/30/23 10:31
I&O
10/29/23 10/30/23 10/31/23
06:59 06:59 06:59
Intake Total 920 / 920 560 / 560
Output Total 250 / 250 100 / 100
Balance 670 / 670 460 / 460
--- NOTE | 2023-10-30 11:25 | W.PN.NEPH.PH ---
Today's Communication / Plan
-
follow BMP
Assessment/Plan
-
Assessment:
GER on CKD (bl 2.5-3.1), follows with Dr. Emery
acute hypoxic respiratory failure
HFrEF
Hyperglycemia
anemia
Cdiff colitis
BPH
Afib
Plan:
follow BMP
off SGLT2i
US without obstruction
hold lasix today as weights stable and he is on RA
discussed dialysis. He will consider whether he would accept it if it was needed
-
-
Date of Service: October 30, 2023
CC / HPI / ROS
-
Chief Complaint:
GER
History of Present Illness:
GER/Cr up to 4.1
BUN climbing
weights stable
Hgb stable low 7
WBC higher at 35.5
Review of Systems:
no CP/SOB
Labs
-
Labs:
WBC 35.5 10^3/uL (4.8-10.8) H 10/30/23 05:05
RBC 2.59 10^6/uL (4.70-6.10) L 10/30/23 05:05
Hgb 7.0 g/dL (13.0-18.0) L 10/30/23 05:05
Hct 23.6 % (39.0-52.0) L 10/30/23 05:05
Plt Count 360 10^3/uL (130-400) 10/30/23 05:05
Sodium 137 mmol/L (135-145) 10/30/23 05:05
Potassium 4.0 mmol/L (3.5-5.1) 10/30/23 05:05
Chloride 101 mmol/L (98-107) 10/30/23 05:05
Carbon Dioxide 25 mmol/L (22-30) 10/30/23 05:05
BUN 90 mg/dl (9-20) H 10/30/23 05:05
Creatinine 4.1 mg/dL (0.7-1.3) H* 10/30/23 05:05
eGFR 13.82 10/30/23 05:05
Glucose 185 mg/dl (70-99) H 10/30/23 05:05
Calcium 8.1 mg/dl (8.4-10.2) L 10/30/23 05:05
Phosphorus 4.9 mg/dl (2.5-4.5) H 10/27/23 06:27
Udi-Y-Ovrovjtynoz Pept 49246 pg/ml 10/28/23 05:13
Albumin 2.7 g/dl (3.5-5.0) L 10/30/23 05:05
Physical Exam
-
Vital Signs:
Vital Signs
Temp Pulse Resp BP Pulse Ox
97.8 F 60 20 121/50 95
10/30/23 07:55 10/30/23 09:03 10/30/23 07:55 10/30/23 09:03 10/30/23 10:31
Cardiovascular:: Regular rate and rhythm
Respiratory:: Bilateral: Coarse
Lung Excursion:: Normal
Abdomen:: Nontender and Soft
Bowel Sounds:: Normal
Extremity Edema:: None: Bilateral:
[2023-10-30] MEDS: DECADRON 6 MG IV (11:33)
[2023-10-30 12:02] LABS: INR 1.39; PT 17.2 Sec (11.4-14.6)
[2023-10-30 12:22] LABS: Glucose - Point of Care 383 mg/dl (70-99)
[2023-10-30] MEDS: NOVOLOG FLEXPEN-MODERATE RESISTANCE 9 UNITS SC ×2 (12:26→17:06)
[2023-10-30 16:18] LABS: Glucose - Point of Care 394 mg/dl (70-99)
[2023-10-30] MEDS: FIRVANQ 125 MG PO (17:04)
[2023-10-30] MEDS: PROSCAR 5 MG PO (17:05)
[2023-10-30] MEDS: CRESTOR 5 MG PO (17:05)
[2023-10-30] MEDS: TOPROL XL 12.5 MG PO (17:05)
[2023-10-30] MEDS: COUMADIN 3 MG PO (17:05)
[2023-10-30] MEDS: NORVASC 10 MG PO (17:06)
[2023-10-30 22:03] LABS: Glucose - Point of Care 250 mg/dl (70-99)
[2023-10-30] MEDS: DECADRON 4 MG IV (23:04)
[2023-10-31 03:40] VITALS: PULSE 2
[2023-10-31 07:15] LABS: Glucose - Point of Care 146 mg/dl (70-99)
[2023-10-31] MEDS: PULMICORT 0.5 MG INH ×2 (07:19→19:29)
[2023-10-31] MEDS: DUONEB 3 ML INH ×2 (07:19→19:29)
[2023-10-31] MEDS: NOVOLOG FLEXPEN 12 UNITS SC (07:44)
[2023-10-31] MEDS: NOVOLOG FLEXPEN-MODERATE RESISTANCE SC (07:45)
[2023-10-31] MEDS: LANTUS 0.270000000000000018 UNITS SC (07:46)
[2023-10-31] MEDS: NITRO-DUR 0.599999999999999978 MG TRANSDERM (07:46)
[2023-10-31] MEDS: PACERONE 200 MG PO (07:47)
[2023-10-31] MEDS: ULORIC 40 MG PO (07:47)
[2023-10-31] MEDS: MUCINEX 600 MG PO ×2 (07:47→20:42)
[2023-10-31] MEDS: ASPIR LOW (ENTERIC COATED) 81 MG PO (07:47)
[2023-10-31] MEDS: SODIUM BICARBONATE 650 MG PO ×3 (07:47→22:42)
[2023-10-31 07:55] VITALS: BP 128/51
[2023-10-31 07:56] LABS: Mean Corp Hgb Conc. 30.8 g/dL (33.0-37.0); Mean Corpuscular Hgb 28.4 pg (27.0-31.0); Mean Corpuscular Volume 92.2 fL (80.0-94.0); Mean Platelet Volume 10.4 fL (7.4-10.4); Platelet Count 362 10^3/uL (130-400); Red Blood Cell Count 2.82 10^6/uL (4.70-6.10); Red Cell Dist. Width 21.9 % (11.5-14.5)
[2023-10-31 08:01] LABS: White Blood Cell Count 45.9 10^3/uL (4.8-10.8)
[2023-10-31 08:05] LABS: INR 1.43; PT 17.3 Sec (11.4-14.6)
[2023-10-31 08:16] LABS: ALT (SGPT) 17 U/L (0-50); AST (SGOT) 23 U/L (17-59); Alkaline Phosphatase 65 U/L (38-126); Blood Urea Nitrogen 97 mg/dl (9-20); Calcium 8.3 mg/dl (8.4-10.2); Carbon Dioxide 24 mmol/L (22-30); Chloride 103 mmol/L (98-107); Estimated Creatinine Clearance 14 ml/min; Glucose 115 mg/dl (70-99); Potassium 3.8 mmol/L (3.5-5.1); Sodium 138 mmol/L (135-145); Total Bilirubin 1.3 mg/dl (0.2-1.3); Total Protein 5.2 g/dl (6.3-8.2); eGFR 14.24
--- NOTE | 2023-10-31 08:36 | PN.DE.MGMTRT ---
Insulin Management
- -
10/31/2023: Diabetes Management F/U:
83 year old male with PMH: CKD4, HFrEF, CLL/myelofibrosis, anemia of chronic disease, pAFib, CAD, COPD, HTN, DLD, recent Cdiff, BPH
Admitted on 10/23 with Acute Hypoxic respiratory failure 2/2 to pneumonia +/- Interstitial Pneumonitis in setting of Momelotinib. Was started on stress dose steroids- Dexamethasone 4mg Q12 hrs with subsequent Hyperglycemia. Current A1C 5.2%, Pt has
no known hx of Diabetes Mellitus.
Current diabetes regimen includes Lantus 25 units @ HS that has been increased to [address] Vera, NovoLog 10 units AC and NPH 10 units daily in AM with high corrective insulin. States that he is not diabetic but has a glucose monitor at home
and periodically checks his fasting blood sugars because he has been off and on oral steroids.
Pt awake, alert, oriented x3, sitting up in chair, offers no complaints and able to discuss diabetes mgt.
Pt remains on steroids- Dexa 4mg Q12 hrs, contributing to ongoing Hyperglycemia
Premeal glucose range was 203 to 394 yesterday, requiring 9 units of additional corrective insulin.
Will increase NovoLog to 15 units AC.
Fasting glucose has improved to 115 this AM. Will make no changes to Lantus dose. Cont 27 units in AM.
Anticipate improvement with steroid weaning.
Diabetes plan of care discussed with pt and Pt's Nurse.
Diabetes History
- -
Pre-Admission Diabetes Regimen
10/31/23
07:19
Creatinine 4.0 H
Insulin Pump Settings
IP Diabetes Regimen
10/30/23 10/30/23 10/30/23
12:20 16:16 21:54
Glucose
POC Glucose 383 H 394 H 250 H
10/31/23 10/31/23
07:13 07:19
Glucose 115 H
POC Glucose 146 H
Meal type: Dinner
Meal type: Lunch
Amount consumed: 100%
Amount consumed: 100%
Patient Education
--- NOTE | 2023-10-31 08:37 | W.PN.HOSP.TC ---
Today's Communication/Plan
-
see bold
Assessment / Plan
Assessment / Plan
Gen: NAD, awake and alert, appears chronically ill
Eyes: EOMI, PERRLA, no scleral icterus.
Neck: supple.
CV: continues to remain RRR, +S1/S2, no m/r/g.
Resp: continues to remain CTAB, no rales, wheezes, or rhonchi.
Abd: continues to remain +BS, soft, NT, ND
Skin: No rashes.
Neuro: CN 2-12 intact, non-focal.
Psych: Normal mood and affect.
10/24/23 18:26 Blood/Venous Blood Culture - Final
No Growth - Final Report
10/24/23 18:26 Blood/Venous Blood Culture - Final
No Growth - Final Report
10/24/23 18:26 Nose MRSA Screen - Final
No Methicillin Resistant Staphylococcus aureus isolated.
10/24/23 18:26 Urine Legionella Urinary Antigen - Final
Negative for Legionella pneumophila Serogroup 1 antigen.
A negative result does not rule out the possiblity of
Legionella infection due to other serogroups or species of
Legionella. Clinical correlation is recommended.
10/24/23 18:26 Urine Streptococcus pneumoniae Antigen (M - Final
Negative for Streptococcus pneumoniae antigen.
A negative result does not exclude infection with
Streptococcus pneumoniae. Clinical correlation is
recommended.
10/24/23 18:26 Nasal Swab Influenza Types A & B (YOBANY) - Final
Negative for Influenza A & B, NAAT
Negative results must be combined with clinical observations
and patient history.
Nucleic Acid Amplification test (NAAT)performed on the
[employer] platform.
CXR 10/25/23: Bilateral reticular and airspace opacities as above most likely related to pneumonia, without significant change. Very small bilateral effusions.
Echo: Normal left ventricular wall thickness.
Normal left ventricular chamber size.
Mildly reduced left ventricular systolic function.
Left ventricular ejection fraction is 44% by Anaya's method.
Global hypokinesis, more prominent in the mid and basal segments of the
anterolateral wall.
Normal right ventricular size and function.
Mitral valve opens normally.
Mild to moderate mitral regurgitation.
Trace to mild aortic regurgitation.
Mild tricuspid regurgitation.
The IVC is of normal size and demonstrates normal respiratory variation.
Normal pericardium without effusion.
No significant change noted from 09/2023
Renal U/S:
1. Negative for hydronephrosis. There is increased renal cortical echogenicity, nonspecific but may be seen in association with medical renal disease.
2. Small benign left renal cysts as seen prior. Probable subcentimeter calculus at the left lower pole.
3. Limited evaluation of the urinary bladder as above. Post void residual of 21 mL.
Acute Hypoxic respiratory failure:
-due to pneumonia +/- Interstitial Pneumonitis in setting of Momelotinib
-sepsis due to PNA
-PE unlikely as patient on Coumadin and supratherapeutic
-was on high flow, now weaned to 2L
-all Cxs NG as above
-COVID/Flu negative
-strep/Legionella Ags negative
-MRSA screen NEG, Vanco stopped
-cont Zosyn (started 10/24/23PM)
-cont Decadron (now weaned to 4mg IV Q12H)
-Significant leukocytosis, a component of which is likely steroid-induced
-afebrile
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
-Cr continues to worsen
-AIN vs CRS
-Cont sodium bicarb
-renal U/S above, no hydro
-renal following. Pt is deciding on whether or not he would want hemodialysis if needed.
Chronic HFrEF:
-Echo above and without significant change from September 2023
-I/Os, daily wts (stable)
-cont BB
-home lasix on hold
Steroid-induced hyperglycemia:
-a1c 5.2% on 10/03/23
-diabetes JOURNEYMAN MILLWRIGHT following
-cont Lantus 27U, premeal Novolog 15U
-SSI/accuchecks
Other problems:
Acute nonischemic myocardial injury likely due to pneumonia/sepsis
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
Anemia of chronic disease: Continue iron sulfate. Transfuse for Hb < 7
Paroxysmal atrial fibrillation: with supratherapeutic INR, s/p Vit K, Cont Amio. cont coumadin (increase to 5mg).
CAD: h/o stents, cont ASA/statin/BB
COPD: cont Pulmicort/DuoNebs
Essential hypertension: Cont BB/Norvasc
Hypercholesterolemia: cont statin
Recent C. difficile colitis: Continue oral vancomycin
BPH: Continue finasteride
Full-thickness coccyx/perineal ulcer, likely healing PI stage 3
FULL/coumadin
Total time spent on today's encounter was 52 minutes which included time spent in counseling the patient/family regarding diagnosis and treatment plan as listed above, goals of care, and symptom management. Case was discussed with nursing staff,
specialists, and care coordinators/case management. All labs and imaging personally reviewed by me. Remainder the time spent in detailed review of previous records, lab data, imaging, and other medical provider documentation.
Anticipated Discharge: 24 - 48 hours
Subjective/Interval History
-
Date of Service: October 31, 2023
No new complaints.
Objective Data
-
Labs:
Laboratory Results
10/31/23
07:19
WBC 45.9 H*
Hgb 8.0 L
Hct 26.0 L
Plt Count 362
PT 17.3 H
INR 1.43
Sodium 138
Potassium 3.8
Chloride 103
Carbon Dioxide 24
BUN 97 H
Creatinine 4.0 H
Glucose 115 H
Calcium 8.3 L
Total Bilirubin 1.3
AST 23
ALT 17
Alkaline Phosphatase 65
Vital Signs:
Vital Signs
Temp Pulse Resp BP Pulse Ox
97.7 F 68 18 128/51 99
10/30/23 23:30 10/31/23 07:47 10/31/23 07:23 10/31/23 07:47 10/31/23 07:23
I&O
10/30/23 10/31/23 11/01/23
06:59 06:59 06:59
Intake Total 560 / 560 1440 / 1440
Output Total 100 / 100 300 / 300
Balance 460 / 460 1140 / 1140
[2023-10-31] MEDS: ZOSYN 50 IV ×2 (08:55→17:11)
--- NOTE | 2023-10-31 09:42 | PN.CDI ---
CDI
- -
CDI:
Physician Documentation Request
Admit Date: 10/24/23 18:57
Dear Doctor Jody,
Clinical Indicators:
Pt admitted with Sepsis and pneumonia
10/28 Wound Care Nurse assessment: 'Patient has full thickness coccyx/ perianal ulcer suspect healing PI stage 3.
Physician documentation of the type and location of wounds is required for compliant documentation. Based on the above clinical findings and your assessment, please provide the following in your progress note:
1. Location of the ulcer/wound, including laterality.
2. Type (etiology) of ulcer/wound:
Pressure (decubitus) ulcer
Other
Use of terms such as suspected, likely, concern for, or probable (associated with a specific diagnosis that is being evaluated, monitored, or treated as if it exists) are acceptable and can be coded in the inpatient setting, when documented at the
time of discharge.
Thank you,
[place] Garrett RN, BSN
CDI Specialist
Available via [facility] [employer]
Please use your independent medical judgment in providing your response.
*Source: National Pressure Ulcer Advisory Panel (NPUAP)
--- NOTE | 2023-10-31 10:05 | W.PN.PUL.V3 ---
Today's Communication / Plan
-
Wean oxygen
Wean steroids
Mucus clearing devices
Assessment
-
Assessment: 83-year-old male former tobacco smoker with past medical history of asthma/COPD, gout, CLL, history of PCV, mild restrictive lung disease, ABELARDO, HFpEF, A-fib s/p multiple DCCV on chronic amiodarone and warfarin, CAD with history of CA s/p
coronary stents and myelofibrosis who presents with low oxygen level. 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 He also endorses SOB over the last several
days with activity. In triage she was saturating 87% on room air, BP 135/62, pulse rate 66 and respiratory rate 18. He was afebrile to 98 �F. Of note he was recently hospitalized here from 09/22ue to C. difficile colitis with GER.
Labs showed Hb 8.1, platelet 4 3, INR 3.79, proBNP 26,300, and TSH 4.93. COVID antigen was negative. Blood cultures were collected. CXR showed bilateral airspace/interstitial infiltrates suspicious for diffuse pneumonia. He was given a DuoNeb
treatment in the ER. He was initially admitted to the IMU, however due to worsening respiratory distress he was transferred to the ICU, started on BiPAP and now electrical accessories ii assembler consulted for additional management/recommendations.
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
IVIG, history of gout, BPH
Impression:
#Acute respiratory failure with hypoxia on supplemental oxygen
#Bilateral infiltrates
#Acute on chronic anemia
#Elevated troponin � peaked at 0.144 on 10/25/2023
#Recent CDI on PO vanc
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
#HTN
#Hx of asthma/copd not in an acute exacerbation
#Hx of ABELARDO on auto-BiPAP
#History of bronchiectasis on vest therapy at home
Plan:
.
Respiratory status improving-recovering faster and on less FiO2
Continue supplemental option-currently on 3 L-Continue to wean
BiPAP 05/07 with 5 L of oxygen as tolerated
Incentive spirometry.
Nebulizers as needed.
Steroids with slow taper-currently on Decadron 3 mg IV every 12 hours-consider changing to prednisone in the next 24 hours
Monitor leukocytosis
Aspiration precautions.
Follow radiographically..
Mucus clearing devices including Vest therapy-reportedly has at home
Cultures reviewed.
Follow leukocytosis.
Momelotinib - on hold.
Zosyn continues
Vancomycin orally continues
Continue to follow hemoglobin.
Transfuse as needed..
Continue diuresis if tolerated.
Monitor intake/output, weight, lower extremity edema, and renal function.
Replace electrolytes as needed.
Nephrology evaluation
Monitor blood sugar.
Insulin supplementation as needed.
DVT prophylaxis.
Nutrition
Early mobilization.
Reviewed with nursing as well as respiratory therapy.
Outpatient pulmonary [id number] states she follows up at [place] -Dr. Parson told her to obtain films on disc to bring to her next appointment
Data:
CXR 10-25-2023: Bilateral reticular and airspace opacities as above most likely related to pneumonia, without significant change. Very small bilateral effusions.
CXR 10-24-2023: The heart size is within the limits of normal; There are bilateral airspace and interstitial infiltrates, right greater than left, consistent with diffuse pneumonia. Regional skeleton intact.
TTE 10-25-2023:
Normal left ventricular wall thickness.
Normal left ventricular chamber size.
Mildly reduced left ventricular systolic function.
Left ventricular ejection fraction is 44% by Anaya's method.
Global hypokinesis, more prominent in the mid and basal segments of the
anterolateral wall.
Normal right ventricular size and function.
Mitral valve opens normally.
Mild to moderate mitral regurgitation.
Trace to mild aortic regurgitation.
Mild tricuspid regurgitation.
The IVC is of normal size and demonstrates normal respiratory variation.
Normal pericardium without effusion.
No significant change noted from 09/2023
Subjective Data
-
Date of Service:
Date of Service: October 31, 2023
Chief Complaint: Pulmonary Follow Up and Dyspnea Follow Up
Subjective:
Out of bed, feels a little better, minimal chest congestion, though occasionally has difficulties mobilizing secretions, no chest pain, abdominal pain, or increased leg swelling
Review of Systems
General: Other ( per HPI)
Objective Data
Data Reviewed
Vital Signs / I&O:
Vital Signs
Temp Pulse Resp BP Pulse Ox
97.5 F 64 16 128/51 96
10/31/23 07:55 10/31/23 07:55 10/31/23 07:55 10/31/23 07:55 10/31/23 07:55
Intake and Output
10/30/23 10/31/23 11/01/23
06:59 06:59 06:59
Intake Total 560 / 560 1440 / 1440
Output Total 100 / 100 300 / 300
Balance 460 / 460 1140 / 1140
SaO2: 96
Nasal Cannula flow liters per minute: 3
Physical Exam
General: Respiratory Distress (Negative) and Comfortable
HEENT: Normocephalic and Anicteric
Cardiovascular: Peripheral Edema (Negative) and Other (Normal rate)
Respiratory: Wheeze (Negative), Crackles (few basilar), Rhonchi (Negative) and Non-Labored Respirations
GI: Soft, Non Distended, Non Tender and Normal Bowel Sounds
Neurology: Awake, Alert and Tremors (Negative)
Skin: Warm, Dry, Good Color, Cyanosis (Negative), Jaundice (n) and Rash (n)
Labs/Micro/Reports
Lab Data
10/31/23 07:19
10/31/23 07:19
Laboratory Results
10/30/23 10/31/23
11:21 07:19
PT 17.2 H 17.3 H
INR 1.39 1.43
Microbiology
10/24/23 18:26 Blood/Venous Blood Culture - Final
No Growth - Final Report
10/24/23 18:26 Blood/Venous Blood Culture - Final
No Growth - Final Report
--- NOTE | 2023-10-31 10:48 | W.PN.NEPH.PH ---
Today's Communication / Plan
-
follow BMP
Assessment/Plan
-
Assessment:
GER on CKD (bl 2.5-3.1), follows with Dr. Emery
acute hypoxic respiratory failure
PNA
HFrEF
Hyperglycemia
BPH
Afib
Plan:
follow BMP
off SGLT2i
US without obstruction
hold lasix still as weights stable and he is on RA
continue abx
discussed dialysis. He will consider whether he would accept it if it was needed
-
-
Date of Service: October 31, 2023
CC / HPI / ROS
-
Chief Complaint:
GER
History of Present Illness:
GER/Cr stable at 4
BUN climbing 97
weights stable
Hgb stable low 8
WBC higher at 45
Review of Systems:
no CP/SOB
Labs
-
Labs:
WBC 45.9 10^3/uL (4.8-10.8) H* 10/31/23 07:19
RBC 2.82 10^6/uL (4.70-6.10) L 10/31/23 07:19
Hgb 8.0 g/dL (13.0-18.0) L 10/31/23 07:19
Hct 26.0 % (39.0-52.0) L 10/31/23 07:19
Plt Count 362 10^3/uL (130-400) 10/31/23 07:19
Sodium 138 mmol/L (135-145) 10/31/23 07:19
Potassium 3.8 mmol/L (3.5-5.1) 10/31/23 07:19
Chloride 103 mmol/L (98-107) 10/31/23 07:19
Carbon Dioxide 24 mmol/L (22-30) 10/31/23 07:19
BUN 97 mg/dl (9-20) H 10/31/23 07:19
Creatinine 4.0 mg/dL (0.7-1.3) H 10/31/23 07:19
eGFR 14.24 10/31/23 07:19
Glucose 115 mg/dl (70-99) H 10/31/23 07:19
Calcium 8.3 mg/dl (8.4-10.2) L 10/31/23 07:19
Phosphorus 4.9 mg/dl (2.5-4.5) H 10/27/23 06:27
Qwo-Z-Jwbasfxrxgt Pept 90539 pg/ml 10/28/23 05:13
Albumin 3.0 g/dl (3.5-5.0) L 10/31/23 07:19
Physical Exam
-
Vital Signs:
Vital Signs
Temp Pulse Resp BP Pulse Ox
97.5 F 64 16 128/51 96
10/31/23 07:55 10/31/23 07:55 10/31/23 07:55 10/31/23 07:55 10/31/23 10:05
Cardiovascular:: Regular rate and rhythm
Respiratory:: Bilateral: Coarse
Lung Excursion:: Normal
Abdomen:: Nontender and Soft
Bowel Sounds:: Normal
Extremity Edema:: None: Bilateral:
[2023-10-31] MEDS: DECADRON 4 MG IV (10:56)
[2023-10-31 11:49] LABS: Glucose - Point of Care 254 mg/dl (70-99)
--- NOTE | 2023-10-31 12:06 | CM ---
Patient seen at bedside. Patient indicated that he was feeling somewhat better. Patient currently is on 3 liters of O2. Patient indicated again that he does not have any home O2 at this time. CM reviewed possible options. Patient plan continues to
be home with . CM will continue to follow for discharge planning needs.
Plan; home with VN; watch for home O2 needs, and HD discussion
[2023-10-31] MEDS: NOVOLOG FLEXPEN 15 UNITS SC ×2 (12:32→17:42)
[2023-10-31] MEDS: NOVOLOG FLEXPEN-MODERATE RESISTANCE 5 UNITS SC (12:32)
[2023-10-31 15:30] VITALS: BP 116/45
[2023-10-31 16:51] LABS: Glucose - Point of Care 202 mg/dl (70-99)
[2023-10-31] MEDS: CRESTOR 5 MG PO (17:13)
[2023-10-31] MEDS: FEOSOL 325 MG PO (17:13)
[2023-10-31] MEDS: TOPROL XL 12.5 MG PO (17:13)
[2023-10-31] MEDS: FIRVANQ 125 MG PO (17:13)
[2023-10-31] MEDS: PROSCAR 5 MG PO (17:13)
[2023-10-31] MEDS: NORVASC 10 MG PO (17:13)
[2023-10-31] MEDS: COUMADIN 5 MG PO (17:24)
[2023-10-31 17:32] VITALS: BMI 23.0
[2023-10-31] MEDS: NOVOLOG FLEXPEN-MODERATE RESISTANCE 3 UNITS SC (17:43)
[2023-10-31 21:21] LABS: Glucose - Point of Care 195 mg/dl (70-99)
[2023-10-31 23:02] VITALS: PULSE 2
[2023-10-31 23:53] VITALS: BP 126/53
[2023-11-01] MEDS: DECADRON 3 MG IV ×3 (00:11→23:13)
[2023-11-01] MEDS: ZOSYN 50 IV ×2 (00:16→09:55)
[2023-11-01 03:48] VITALS: PULSE 2; PULSE 89
[2023-11-01 05:28] LABS: Hematocrit 23.3 % (39.0-52.0); Hemoglobin 7.1 g/dL (13.0-18.0); Mean Corp Hgb Conc. 30.5 g/dL (33.0-37.0); Mean Corpuscular Hgb 27.2 pg (27.0-31.0); Mean Corpuscular Volume 89.3 fL (80.0-94.0); Mean Platelet Volume 10.4 fL (7.4-10.4); Platelet Count 254 10^3/uL (130-400); Red Blood Cell Count 2.61 10^6/uL (4.70-6.10); Red Cell Dist. Width 21.3 % (11.5-14.5); White Blood Cell Count 36.7 10^3/uL (4.8-10.8)
[2023-11-01 05:40] LABS: INR 1.84; PT 21.1 Sec (11.4-14.6)
[2023-11-01 06:00] VITALS: BMI 24.0
[2023-11-01 06:33] LABS: Blood Urea Nitrogen 109 mg/dl (9-20); Calcium 8.2 mg/dl (8.4-10.2); Carbon Dioxide 25 mmol/L (22-30); Chloride 102 mmol/L (98-107); Estimated Creatinine Clearance 13 ml/min; Glucose 80 mg/dl (70-99); Potassium 3.9 mmol/L (3.5-5.1); Sodium 136 mmol/L (135-145)
--- NOTE | 2023-11-01 06:34 | PTCARENOTE ---
Pt with critical BUN 109 creat 4.4 House STOCK FITTER aware.
--- NOTE | 2023-11-01 06:49 | PN.DE.MGMTRT ---
Insulin Management
- -
11/01/2023: Diabetes Management F/U:
83 year old male with PMH: CKD4, HFrEF, CLL/myelofibrosis, anemia of chronic disease, PAFib, CAD, COPD, HTN, DLD, recent C-Diff, BPH
Admitted on 10/23 with Acute Hypoxic respiratory failure 2/2 to pneumonia +/- Interstitial Pneumonitis in setting of Momelotinib. Was started on stress dose steroids- Dexamethasone 4mg Q12 hrs with subsequent Hyperglycemia. Current A1C 5.2%, Pt has
no known hx of Diabetes Mellitus.
Current diabetes regimen includes Lantus 25 units @ HS that has been increased to [address] Vera, NovoLog 10 units AC and NPH 10 units daily in AM with high corrective insulin. States that he is not diabetic but has a glucose monitor at home
and periodically checks his fasting blood sugars because he has been off and on oral steroids.
Pt awake, alert, oriented x3, sitting up in bed, states he didn't sleep well last night, able to discuss diabetes mgt.
Pt remains on steroids with slow taper-was on Decadron 4 mg Q12hrs, reduced to 3 mg Q12 hrs.
Glucose has improved, was 195 @ HS and FBG 80(V), 120 before breakfast this AM.
Will reduce Lantus to 15 units daily in AM, 1st dose NOW and reduce NovoLog from 15 units to 10 units AC.
Anticipate further improvement of glucose with steroid weaning.
Diabetes plan of care discussed with pt and Pt's Nurse.
Diabetes History
- -
Pre-Admission Diabetes Regimen
10/31/23 11/01/23
07:19 04:32
Creatinine 4.0 H 4.4 H*
Insulin Pump Settings
IP Diabetes Regimen
10/31/23 10/31/23 10/31/23
07:13 07:19 11:48
Glucose 115 H
POC Glucose 146 H 254 H
10/31/23 10/31/23 11/01/23
16:50 21:20 04:32
Glucose 80
POC Glucose 202 H 195 H
Meal type: Lunch
Meal type: Breakfast
Amount consumed: 50%
Amount consumed: 100%
Patient Education
[2023-11-01] MEDS: DUONEB 3 ML INH ×2 (07:16→19:32)
[2023-11-01] MEDS: PULMICORT 0.5 MG INH ×2 (07:16→19:32)
[2023-11-01 08:01] LABS: Glucose - Point of Care 120 mg/dl (70-99)
[2023-11-01 09:02] VITALS: BP 122/47
[2023-11-01] MEDS: NOVOLOG FLEXPEN-MODERATE RESISTANCE SC (09:10)
[2023-11-01] MEDS: NOVOLOG FLEXPEN 10 UNITS SC ×3 (09:13→18:17)
[2023-11-01] MEDS: LANTUS 0.149999999999999994 UNITS SC (09:14)
[2023-11-01] MEDS: MUCINEX 600 MG PO ×2 (09:16→21:03)
[2023-11-01] MEDS: SODIUM BICARBONATE 650 MG PO ×3 (09:16→21:03)
[2023-11-01] MEDS: ASPIR LOW (ENTERIC COATED) 81 MG PO (09:16)
[2023-11-01] MEDS: PACERONE 200 MG PO (09:16)
[2023-11-01] MEDS: ULORIC 40 MG PO (09:16)
[2023-11-01] MEDS: NITRO-DUR 0.599999999999999978 MG TRANSDERM (09:17)
--- NOTE | 2023-11-01 09:57 | W.PN.PUL.V3 ---
Today's Communication / Plan
-
.
Wean oxygen.
Increase activity.
Change Decadron to prednisone in the next 24 hours
Assessment
-
Assessment: 83-year-old male former tobacco smoker with past medical history of asthma/COPD, gout, CLL, history of PCV, mild restrictive lung disease, ABELARDO, HFpEF, A-fib s/p multiple DCCV on chronic amiodarone and warfarin, CAD with history of ME s/p
coronary stents and myelofibrosis who presents with low oxygen level. Patient was at his frame bender/oncologist being treated for CLL and was noted to be hypoxic and sent here for further evaluation. He also endorses SOB over the last several
days with activity. In triage she was saturating 87% on room air, BP 135/62, pulse rate 66 and respiratory rate 18. He was afebrile to 98 �F. Of note he was recently hospitalized here from 09/22 � 09/27/2023 due to C. difficile colitis with GER.
Labs showed Hb 8.1, platelet 4 3, INR 3.79, proBNP 26,300, and TSH 4.93. COVID antigen was negative. Blood cultures were collected. CXR showed bilateral airspace/interstitial infiltrates suspicious for diffuse pneumonia. He was given a DuoNeb
treatment in the ER. He was initially admitted to the IMU, however due to worsening respiratory distress he was transferred to the ICU, started on BiPAP and now log tumbler consulted for additional management/recommendations.
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
IVIG, history of gout, BPH
Impression:
#Acute respiratory failure with hypoxia on supplemental oxygen
#Bilateral infiltrates
#Acute on chronic anemia
#Elevated troponin � peaked at 0.144 on 10/25/2023
#Recent CDI on PO vanc
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
#HTN
#Hx of asthma/copd not in an acute exacerbation
#Hx of ABELARDO on auto-BiPAP
#History of bronchiectasis on vest therapy at home
Plan:
.
Respiratory status improving-recovering faster and on less FiO2
Continue supplemental option-currently on 3 L-Continue to wean
BiPAP 05/07 with 5 L of oxygen as tolerated
Incentive spirometry.
Nebulizers as needed.
Steroids with slow taper-currently on Decadron 3 mg IV every 12 hours- will change to prednisone tomorrow
Monitor leukocytosis
Aspiration precautions.
Follow radiographically..
Mucus clearing devices including Vest therapy-reportedly has at home
Cultures reviewed.
Follow leukocytosis.
Momelotinib - on hold.
Zosyn continues
Vancomycin orally continues
Continue to follow hemoglobin.
Transfuse as needed..
Continue diuresis if tolerated.
Monitor intake/output, weight, lower extremity edema, and renal function.
Replace electrolytes as needed.
Nephrology evaluation
Monitor blood sugar.
Insulin supplementation as needed.
DVT prophylaxis.
Nutrition
Early mobilization.
Reviewed with nursing as well as respiratory therapy.
Outpatient pulmonary [id number] states she follows up at [place] -Dr. Parson told her to obtain films on disc to bring to her next appointment
Data:
CXR 10-25-2023: Bilateral reticular and airspace opacities as above most likely related to pneumonia, without significant change. Very small bilateral effusions.
CXR 10-24-2023: The heart size is within the limits of normal; There are bilateral airspace and interstitial infiltrates, right greater than left, consistent with diffuse pneumonia. Regional skeleton intact.
TTE 10-25-2023:
Normal left ventricular wall thickness.
Normal left ventricular chamber size.
Mildly reduced left ventricular systolic function.
Left ventricular ejection fraction is 44% by Anaya's method.
Global hypokinesis, more prominent in the mid and basal segments of the
anterolateral wall.
Normal right ventricular size and function.
Mitral valve opens normally.
Mild to moderate mitral regurgitation.
Trace to mild aortic regurgitation.
Mild tricuspid regurgitation.
The IVC is of normal size and demonstrates normal respiratory variation.
Normal pericardium without effusion.
No significant change noted from 09/2023
Subjective Data
-
Date of Service:
Date of Service: November 01, 2023
Chief Complaint: Pulmonary Follow Up and Dyspnea Follow Up
Subjective:
Overall feels improved, less short of breath, decreased cough, recovery faster, no abdominal pain
Review of Systems
General: Other (per HPI)
Objective Data
Data Reviewed
Vital Signs / I&O:
Vital Signs
Temp Pulse Resp BP Pulse Ox
97.5 F 64 20 122/47 94
11/01/23 09:02 11/01/23 09:16 11/01/23 09:02 11/01/23 09:16 11/01/23 09:02
Intake and Output
10/31/23 11/01/23 11/02/23
06:59 06:59 06:59
Intake Total 1440 / 1440 840 / 840
Output Total 300 / 300 500 / 500
Balance 1140 / 1140 340 / 340
SaO2: 94
Nasal Cannula flow liters per minute: 2
Physical Exam
General: Respiratory Distress (Negative) and Comfortable
HEENT: Normocephalic and Anicteric
Cardiovascular: Peripheral Edema (Negative) and Other (Normal rate)
Respiratory: Wheeze (Negative), Crackles (few basilar), Rhonchi (Negative) and Non-Labored Respirations
GI: Soft, Non Distended, Non Tender and Normal Bowel Sounds
Neurology: Awake, Alert and Tremors (Negative)
Skin: Warm, Dry, Good Color, Cyanosis (Negative), Jaundice (n) and Rash (n)
Labs/Micro/Reports
Lab Data
11/01/23 04:32
11/01/23 04:32
Laboratory Results
11/01/23
04:32
PT 21.1 H
INR 1.84
Microbiology
10/24/23 18:26 Blood/Venous Blood Culture - Final
No Growth - Final Report
10/24/23 18:26 Blood/Venous Blood Culture - Final
No Growth - Final Report
--- NOTE | 2023-11-01 11:11 | W.PN.HOSP.TC ---
Today's Communication/Plan
-
see bold
Assessment / Plan
Assessment / Plan
Gen: NAD, awake and alert, appears chronically ill
Eyes: EOMI, PERRLA, no scleral icterus.
Neck: supple.
CV: RRR, +S1/S2, no m/r/g.
Resp: CTAB, no rales, wheezes, or rhonchi.
Abd: +BS, soft, NT, ND
Skin: No rashes. Ecchymoses.
Neuro: CN 2-12 intact, non-focal.
Psych: remains Normal mood and affect.
10/24/23 18:26 Blood/Venous Blood Culture - Final
No Growth - Final Report
10/24/23 18:26 Blood/Venous Blood Culture - Final
No Growth - Final Report
10/24/23 18:26 Nose MRSA Screen - Final
No Methicillin Resistant Staphylococcus aureus isolated.
10/24/23 18:26 Urine Legionella Urinary Antigen - Final
Negative for Legionella pneumophila Serogroup 1 antigen.
A negative result does not rule out the possiblity of
Legionella infection due to other serogroups or species of
Legionella. Clinical correlation is recommended.
10/24/23 18:26 Urine Streptococcus pneumoniae Antigen (M - Final
Negative for Streptococcus pneumoniae antigen.
A negative result does not exclude infection with
Streptococcus pneumoniae. Clinical correlation is
recommended.
10/24/23 18:26 Nasal Swab Influenza Types A & B (YOBANY) - Final
Negative for Influenza A & B, NAAT
Negative results must be combined with clinical observations
and patient history.
Nucleic Acid Amplification test (NAAT)performed on the
[employer] platform.
CXR 10/25/23: Bilateral reticular and airspace opacities as above most likely related to pneumonia, without significant change. Very small bilateral effusions.
Echo: Normal left ventricular wall thickness.
Normal left ventricular chamber size.
Mildly reduced left ventricular systolic function.
Left ventricular ejection fraction is 44% by Anaya's method.
Global hypokinesis, more prominent in the mid and basal segments of the
anterolateral wall.
Normal right ventricular size and function.
Mitral valve opens normally.
Mild to moderate mitral regurgitation.
Trace to mild aortic regurgitation.
Mild tricuspid regurgitation.
The IVC is of normal size and demonstrates normal respiratory variation.
Normal pericardium without effusion.
No significant change noted from 09/2023
Renal U/S:
1. Negative for hydronephrosis. There is increased renal cortical echogenicity, nonspecific but may be seen in association with medical renal disease.
2. Small benign left renal cysts as seen prior. Probable subcentimeter calculus at the left lower pole.
3. Limited evaluation of the urinary bladder as above. Post void residual of 21 mL.
Acute Hypoxic respiratory failure:
-due to pneumonia +/- Interstitial Pneumonitis in setting of Momelotinib
-sepsis due to PNA
-PE unlikely as patient on Coumadin and supratherapeutic
-was on high flow, now weaned to 2L
-all Cxs NG as above
-COVID/Flu negative
-strep/Legionella Ags negative
-MRSA screen NEG, IV Vanco stopped
-stop Zosyn (started 10/24/23PM)
-cont Decadron (now weaned to 3mg IV Q12H)
-Significant leukocytosis, a component of which is likely steroid-induced (also CLL and myelofibrosis)
-afebrile
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
-Cr continues to worsen, now 4.4
-AIN vs CRS
-Cont sodium bicarb
-renal U/S above, no hydro
-renal following. Pt is deciding on whether or not he would want hemodialysis if needed.
-discussed with renal
Chronic HFrEF:
-Echo above and without significant change from September 2023
-I/Os, daily wts (stable)
-cont BB
-home lasix on hold
Steroid-induced hyperglycemia:
-a1c 5.2% on 10/03/23
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
-cont Lantus 15U, premeal Novolog 10U (daily adjustments with decadron wean)
-SSI/accuchecks
Other problems:
Acute nonischemic myocardial injury likely due to pneumonia/sepsis
h/o CLL/myelofibrosis: was on Momelotinib [employer]. Onc to see, case discussed with Dr. Mccall.
Anemia of chronic disease: Continue iron sulfate. Transfuse for Hb < 7
Paroxysmal atrial fibrillation: with supratherapeutic INR, s/p Vit K, Cont Amio. cont coumadin (cont 5mg tonight).
CAD: h/o stents, cont ASA/statin/BB
COPD: cont Pulmicort/DuoNebs
Essential hypertension: Cont BB/Norvasc
Hypercholesterolemia: cont statin
Recent C. difficile colitis: Continue oral vancomycin
BPH: Continue finasteride
Full-thickness coccyx/perineal ulcer, likely healing PI stage 3
FULL/coumadin
Total time spent on today's encounter was 50 minutes which included time spent in counseling the patient/family regarding diagnosis and treatment plan as listed above, goals of care, and symptom management. Case was discussed with nursing staff,
specialists, and care coordinators/case management. All labs and imaging personally reviewed by me. Remainder the time spent in detailed review of previous records, lab data, imaging, and other medical provider documentation.
Anticipated Discharge: > 48 hours
Subjective/Interval History
-
Date of Service: November 01, 2023
No new complaints.
Objective Data
-
Labs:
Laboratory Results
11/01/23
04:32
WBC 36.7 H
Hgb 7.1 L
Hct 23.3 L
Plt Count 254 D
PT 21.1 H
INR 1.84
Sodium 136
Potassium 3.9
Chloride 102
Carbon Dioxide 25
BUN 109 H*
Creatinine 4.4 H*
Glucose 80
Calcium 8.2 L
Vital Signs:
Vital Signs
Temp Pulse Resp BP Pulse Ox
97.5 F 64 20 122/47 94
11/01/23 09:02 11/01/23 09:16 11/01/23 09:02 11/01/23 09:16 11/01/23 09:57
I&O
10/31/23 11/01/23 11/02/23
06:59 06:59 06:59
Intake Total 1440 / 1440 840 / 840
Output Total 300 / 300 500 / 500
Balance 1140 / 1140 340 / 340
[2023-11-01 12:08] LABS: Glucose - Point of Care 237 mg/dl (70-99)
[2023-11-01] MEDS: NOVOLOG FLEXPEN-MODERATE RESISTANCE 3 UNITS SC (12:34)
--- NOTE | 2023-11-01 13:44 | W.PN.NEPH.PH ---
Today's Communication / Plan
-
- lasix
Assessment/Plan
-
Assessment:
GER on CKD (bl 2.5-3.1), follows with Dr. Emery
acute hypoxic respiratory failure
PNA
HFrEF
Hyperglycemia
BPH
Afib
Plan:
follow BMP
off SGLT2i
US without obstruction
weights elevated, give lasix today
continue abx
discussed dialysis. leaning towards accepting dialysis if needed
-
-
Date of Service: November 01, 2023
CC / HPI / ROS
-
Chief Complaint:
GER
History of Present Illness:
GER/Cr worse at 4.4
BUN climbing 109
weights increased today
Hgb stable low 7.1
WBC improved at 36
Review of Systems:
no CP/SOB
Labs
-
Labs:
WBC 36.7 10^3/uL (4.8-10.8) H 11/01/23 04:32
RBC 2.61 10^6/uL (4.70-6.10) L 11/01/23 04:32
Hgb 7.1 g/dL (13.0-18.0) L 11/01/23 04:32
Hct 23.3 % (39.0-52.0) L 11/01/23 04:32
Plt Count 254 10^3/uL (130-400) D 11/01/23 04:32
Sodium 136 mmol/L (135-145) 11/01/23 04:32
Potassium 3.9 mmol/L (3.5-5.1) 11/01/23 04:32
Chloride 102 mmol/L (98-107) 11/01/23 04:32
Carbon Dioxide 25 mmol/L (22-30) 11/01/23 04:32
BUN 109 mg/dl (9-20) H* 11/01/23 04:32
Creatinine 4.4 mg/dL (0.7-1.3) H* 11/01/23 04:32
eGFR 12.70 11/01/23 04:32
Glucose 80 mg/dl (70-99) 11/01/23 04:32
Calcium 8.2 mg/dl (8.4-10.2) L 11/01/23 04:32
Phosphorus 4.9 mg/dl (2.5-4.5) H 10/27/23 06:27
Ayp-A-Pwykrewgdqc Pept 91281 pg/ml 10/28/23 05:13
Albumin 3.0 g/dl (3.5-5.0) L 10/31/23 07:19
Physical Exam
-
Vital Signs:
Vital Signs
Temp Pulse Resp BP Pulse Ox
97.5 F 64 20 122/47 94
11/01/23 09:02 11/01/23 09:16 11/01/23 09:02 11/01/23 09:16 11/01/23 09:57
Cardiovascular:: Regular rate and rhythm
Respiratory:: Bilateral: Coarse
Lung Excursion:: Normal
Abdomen:: Nontender and Soft
Bowel Sounds:: Normal
Extremity Edema:: +2: Bilateral:
Crespo Catheter: No
[2023-11-01 14:52] VITALS: O2SAT 98
--- NOTE | 2023-11-01 14:58 | CON.ONC ---
Impression
Impression
respiratory failure - hypoxia - bilateral infiltrates
acute on chronic renal failure
h/o MPN/ myelofibrosis
CLL
Plan
Plan
1. Myeloproliferative/ myelofibrosis -
-momelotinib is on hold - in setting of acute illness
-hemoglobin is holding in the 7g/dl range and plts are stable
-WBC is running higher than baseline - on steroids
-continue to follow CBC
will continue to follow with you
Patient History
History of Present Illness
83y/o male seen in hematology consultation today regarding h/o myeloproliferative disorder/ myelofibrosis, as well as CLL, followed by Dr. Alexis.
He has been treated w/ aranesp as well as momelotinib. He started momelotinib in August, and is now on hold in the hospital in the setting of acute respiratory failure as well as acute on chronic renal failure.
CBCs as an outpt reveal baseline hemoglobin over the past few months between 8-9g/dl. Platelet count has been fairly normal. Total WBC has been running around 11-14,000. CBC today reveals total WBC 36,700, hemoglobin 7.1g/dl and platelet count
254,000. His creatinine continues to remain around 4.
He denies any pain. No SOB at rest or abdominal pain. No fevers or chills.
Past-Medical/Surgical History
PMH:
myeloproliferative/ myelofibrosis - Dr. Alexis
CLL
asthma/COPD
ABELARDO
afib
CHF
CAD
DM
hyperlipidemia
SH: no tobacco, no ETOH
FH: non-contributory
Allergies: atorvostatin, prednisone, IVIG
Patient Medication
�Medication �Instructions �Recorded �Confirmed �Last Taken �Type
rosuvastatin 5 mg tablet 5 mg PO QPM High Cholesterol 07/09/19 10/24/23 10/23/23 History
febuxostat 40 mg tablet 40 mg PO DAILY uric acid 04/29/23 10/24/23 10/24/23 History
ferrous sulfate 325 mg (65 mg 325 mg PO Q48H@1800 Supplement ##0 04/29/23 10/24/23 10/23/23 History
iron) tablet
finasteride 5 mg tablet 5 mg PO QPM BPH 04/29/23 10/24/23 10/23/23 History
nitroglycerin 0.6 mg/hr 1 patch transdermal DAILY Heart 04/29/23 10/24/23 10/24/23 History
transdermal 24 hour patch Disease/Condition ##0
(Nitro-Dur)
amiodarone 200 mg tablet 200 mg PO DAILY #30 tabs 06/13/23 10/24/23 10/24/23 Rx
aspirin 81 mg tablet,delayed 81 mg PO DAILY Blood Clot 06/20/23 10/24/23 10/24/23 History
release Prevention/Tx
metoprolol succinate 25 mg 12.5 mg PO QPM Heart 06/20/23 10/24/23 10/23/23 History
tablet,extended release 24 hr Disease/Condition
guaifenesin 600 mg tablet, 600 mg PO BID Neurological 09/01/23 10/24/23 10/24/23 History
extended release 12 hr Condition
Aranesp 1 dose SC Q3W anemia 09/23/23 10/24/23 10/24/23 History
amlodipine 10 mg tablet 10 mg PO QPM Blood Pressure 09/23/23 10/24/23 09/22/23 History
budesonide 0.5 mg/2 mL suspension 0.5 mg inhalation R BIDPRN PRN sob 09/23/23 10/24/23 Unknown History
for nebulization
ipratropium 0.5 mg-albuterol 3 mg 3 ml inhalation R BIDPRN PRN sob 09/23/23 10/24/23 Unknown History
(2.5 mg base)/3 mL nebulization
soln
warfarin 1 mg tablet (Jantoven) 3 mg PO QPM Blood Clot 09/23/23 10/24/23 10/23/23 History
Prevention/Tx
vancomycin 125 mg capsule 125 mg PO DIRECTED #90 caps 09/26/23 10/24/23 10/23/23 Rx
sodium bicarbonate 650 mg tablet 650 mg PO TID #90 tabs 09/27/23 10/24/23 10/24/23 Rx
acetaminophen 500 mg tablet 500 mg PO DAILYPRN PRN mild pain 10/24/23 10/24/23 Unknown History
(Tylenol Extra Strength)
carboxymethylcellulose sodium 1 % 1 drp BOTH EYES DAILYPRN PRN dry 10/24/23 10/24/23 Unknown History
eye liquid gel drops eyes
dapagliflozin propanediol 5 mg 5 mg PO DAILY Diabetes 10/24/23 10/24/23 10/24/23 History
tablet (Farxiga)
momelotinib 200 mg tablet (Ojjaara) 200 mg PO QPM Myelofibrosis 10/24/23 10/24/23 10/23/23 History
Active Medications
Generic Name Dose Route Start Last Admin
Trade Name Freq PRN Reason Stop Dose Admin
Acetaminophen 500 mg 10/24/23 20:19
Acetaminophen 500 Mg Tablet PO 11/21/23 20:18
DAILYPRN PRN
mild pain
Albuterol/Ipratropium 3 ml 10/24/23 20:19 10/24/23 20:49
Ipratropium 0.5/Albuterol 3 Mg (3 Ml Ampul) INH 3 ml
R BIDPRN PRN Administration
sob
Protocol
Albuterol/Ipratropium 3 ml 10/25/23 20:00 11/01/23 07:16
Ipratropium 0.5/Albuterol 3 Mg (3 Ml Ampul) INH 3 ml
R BID SYED Administration
Protocol
Amiodarone HCl 200 mg 10/25/23 08:00 11/01/23 09:16
Amiodarone 200 Mg Tablet PO 11/22/23 07:59 200 mg
DAILY SYED Administration
Amlodipine Besylate 10 mg 10/25/23 18:00 10/31/23 17:13
Amlodipine 10 Mg Tablet PO 11/22/23 17:59 10 mg
QPM SYED Administration
Aspirin 81 mg 10/25/23 08:00 11/01/23 09:16
Aspirin 81 Mg (Enteric Coated) Tablet PO 11/22/23 07:59 81 mg
DAILY SYED Administration
Budesonide 0.5 mg 10/24/23 20:19
Budesonide (Pulmicort Respules) 0.5 Mg/2 Ml INH
R BIDPRN PRN
sob
Protocol
Budesonide 0.5 mg 10/25/23 20:00 11/01/23 07:16
Budesonide (Pulmicort Respules) 0.5 Mg/2 Ml INH 0.5 mg
R BID SYED Administration
Protocol
Carboxymethylcellulose Sodium 1 drops 10/24/23 20:50
Carboxymethylcellulose Ophth Gel (Celluvisc) Droperette BOTH EYES 11/21/23 20:49
DAILYPRN PRN
dry eyes
Dexamethasone Sodium Phosphate 3 mg 11/01/23 00:00 11/01/23 12:35
Dexamethasone 4 Mg/Ml 1 Ml Vial IV 11/29/23 00:00 3 mg
Q12H SYED Administration
Dextrose 12.5 grams 10/24/23 20:18
Dextrose 50% (0.5 Grams/Ml) 50 Ml Syringe IV 11/21/23 20:17
[id number] PRN
hypoglycemia
Protocol
Febuxostat 40 mg 10/25/23 08:00 11/01/23 09:16
Febuxostat (Non-Form) 40 Mg Tablet PO 11/22/23 07:59 40 mg
DAILY SYED Administration
Ferrous Sulfate 325 mg 10/25/23 18:00 10/31/23 17:13
Ferrous Sulfate 325 Mg Tablet PO 11/22/23 17:59 325 mg
Q48H SYED Administration
Finasteride 5 mg 10/25/23 18:00 10/31/23 17:13
Finasteride 5 Mg Tablet PO 11/22/23 17:59 5 mg
QPM SYED Administration
Glucagon 1 mg 10/24/23 20:18
Glucagon 1 Mg Vial IM 11/21/23 20:17
PRN PRN
hypoglycemia
Protocol
Guaifenesin 600 mg 10/25/23 08:00 11/01/23 09:16
Guaifenesin 600 Mg Extended Release Tablet PO 11/22/23 07:59 600 mg
BID SYED Administration
Insulin Glargine 15 units/ 0.15 mls @ 0 mls/hr 11/01/23 07:05 11/01/23 09:14
Device SC 11/27/23 07:59 0.15 mls
DAILY SYED Administration
As Directed
Insulin Aspart 0 units 10/29/23 16:30 11/01/23 12:34
Insulin Aspart Moderate Resistance 300 Units/3 Ml Pen.Injctr SC 11/26/23 16:29 3 units
AC SYED Administration
Protocol
Insulin Aspart 10 units 11/01/23 07:04 11/01/23 12:34
Insulin Aspart (100 Units/Ml) 3 Ml Flexpen SC 11/25/23 07:59 10 units
AC SYED Administration
Metoprolol Succinate 12.5 mg 10/25/23 18:00 10/31/23 17:13
Metoprolol 12.5 Mg Extended Release Dose (1/2 Of 25 Mg Xl Tablet) PO 11/22/23 17:59 12.5 mg
QPM SYED Administration
Nitroglycerin 0.6 mg 10/25/23 08:00 11/01/23 09:17
Nitroglycerin 0.6 Mg/Hour Patch TRANSDERM 11/22/23 07:59 0.6 mg
DAILY SYED Administration
Rosuvastatin Calcium 5 mg 10/25/23 18:00 10/31/23 17:13
Rosuvastatin (Crestor) 5 Mg Tablet PO 11/22/23 17:59 5 mg
QPM SYED Administration
Sodium Bicarbonate 650 mg 10/24/23 22:00 11/01/23 09:16
Sodium Bicarbonate 650 Mg Tablet PO 11/21/23 21:59 650 mg
TID SYED Administration
Sodium Chloride 0 flush 10/24/23 20:00 10/27/23 08:13
Sodium Chloride 0.9% (Flush) Syringe IV 11/21/23 19:59 1 flush
PER PROTOCOL SYED Administration
Vancomycin HCl 125 mg 10/24/23 21:00 10/31/23 17:13
Vancomycin Oral Solution 50 Mg/Ml In Oral Syringe PO 125 mg
QPM SYED Administration
Warfarin Sodium 5 mg 10/31/23 18:00 10/31/23 17:24
Warfarin 5 Mg Tablet PO 11/05/23 17:59 5 mg
QPM SYED Administration
Review of Systems
-
A ROS was obtained w/ pertinent findings as per HPI.
Physical Exam
-
General: Appears Chronically Ill
Cardiology: Normal Sinus Rhythm
Pulmonary: Clear
GI: Soft; Negative Distended
Extremities: No C/C/E
Neurology: Non Focal
Labs
Lab Results
WBC 36.7 10^3/uL (4.8-10.8) H 11/01/23 04:32
RBC 2.61 10^6/uL (4.70-6.10) L 11/01/23 04:32
Hgb 7.1 g/dL (13.0-18.0) L 11/01/23 04:32
Hct 23.3 % (39.0-52.0) L 11/01/23 04:32
MCV 89.3 fL (80.0-94.0) 11/01/23 04:32
MCH 27.2 pg (27.0-31.0) 11/01/23 04:32
MCHC 30.5 g/dL (33.0-37.0) L 11/01/23 04:32
RDW 21.3 % (11.5-14.5) H 11/01/23 04:32
Plt Count 254 10^3/uL (130-400) D 11/01/23 04:32
MPV 10.4 fL (7.4-10.4) 11/01/23 04:32
Abs Immat Gran (auto) 0.9 10^3/uL (0-0.05) H 10/26/23 03:14
Absolute Neuts (auto) 25.9 10^3/uL (1.4-6.5) H 10/26/23 03:14
Absolute Lymphs (auto) 0.8 10^3/uL (1.2-3.4) L 10/26/23 03:14
Absolute Monos (auto) 0.3 10^3/uL (0.1-0.6) 10/26/23 03:14
Absolute Eos (auto) 0.0 10^3/uL (0-0.7) 10/26/23 03:14
Absolute Basos (auto) 0.1 10^3/uL (0-0.2) 10/26/23 03:14
Immature Gran % 3.3 % (0-0.5) H 10/26/23 03:14
Neutrophils % 92.5 % (42.2-75.2) H 10/26/23 03:14
Lymphocytes % 2.8 % (20.5-51.1) L 10/26/23 03:14
Monocytes % 1.1 % (1.7-9.3) L 10/26/23 03:14
Eosinophils % 0.0 % (0-6) 10/26/23 03:14
Basophils % 0.3 % (0-2) 10/26/23 03:14
Creatinine 4.4 mg/dL (0.7-1.3) H* 11/01/23 04:32
Vital Signs
Vital Signs
Temp Pulse Resp BP Pulse Ox
97.5 F 64 20 122/47 94
11/01/23 09:02 11/01/23 09:16 11/01/23 09:02 11/01/23 09:16 11/01/23 09:57
[2023-11-01] MEDS: LASIX 40 MG IV (15:06)
[2023-11-01 16:54] VITALS: BP 113/61
[2023-11-01 17:22] LABS: Glucose - Point of Care 181 mg/dl (70-99)
[2023-11-01] MEDS: NOVOLOG FLEXPEN-MODERATE RESISTANCE 1 UNITS SC (18:18)
[2023-11-01] MEDS: NORVASC 10 MG PO (18:19)
[2023-11-01] MEDS: TOPROL XL 12.5 MG PO (18:19)
[2023-11-01] MEDS: CRESTOR 5 MG PO (18:19)
[2023-11-01] MEDS: COUMADIN 5 MG PO (18:20)
[2023-11-01] MEDS: PROSCAR 5 MG PO (18:21)
[2023-11-01] MEDS: FIRVANQ 125 MG PO (18:25)
[2023-11-01 21:05] LABS: Glucose - Point of Care 247 mg/dl (70-99)
[2023-11-01 23:00] VITALS: BP 116/61
[2023-11-01 23:37] VITALS: PULSE 2
[2023-11-02 03:40] VITALS: PULSE 2
[2023-11-02 06:00] VITALS: BMI 23.3
[2023-11-02 07:35] VITALS: BP 116/65
[2023-11-02] MEDS: PULMICORT 0.5 MG INH ×2 (07:37→18:04)
[2023-11-02] MEDS: DUONEB 3 ML INH ×2 (07:37→18:05)
[2023-11-02 08:09] LABS: Glucose - Point of Care 240 mg/dl (70-99)
[2023-11-02] MEDS: NITRO-DUR 0.599999999999999978 MG TRANSDERM (08:44)
[2023-11-02] MEDS: MUCINEX 600 MG PO ×2 (08:46→20:17)
[2023-11-02] MEDS: SODIUM BICARBONATE 650 MG PO ×3 (08:46→20:17)
[2023-11-02] MEDS: ULORIC 40 MG PO (08:46)
[2023-11-02] MEDS: ASPIR LOW (ENTERIC COATED) 81 MG PO (08:46)
[2023-11-02] MEDS: PACERONE 200 MG PO (08:46)
[2023-11-02] MEDS: NOVOLOG FLEXPEN 10 UNITS SC ×3 (08:47→17:38)
[2023-11-02] MEDS: NOVOLOG FLEXPEN-MODERATE RESISTANCE 3 UNITS SC (08:47)
[2023-11-02 08:52] LABS: INR 2.22; PT 24.5 Sec (11.4-14.6)
[2023-11-02] MEDS: LANTUS 0.149999999999999994 UNITS SC (09:16)
--- NOTE | 2023-11-02 10:47 | W.PN.HOSP.TC ---
Today's Communication/Plan
-
see bold
Assessment / Plan
Assessment / Plan
Gen: NAD, awake and alert, appears chronically ill
Eyes: EOMI, PERRLA, no scleral icterus.
Neck: supple.
CV: irreg/irreg, +S1/S2, no m/r/g.
Resp: CTAB anteriorly, no rales, wheezes, or rhonchi.
Abd: +BS, soft, NT, ND
Skin: No rashes. Ecchymoses.
Neuro: CN 2-12 intact, non-focal.
Psych: continues to remain Normal mood and affect.
10/24/23 18:26 Blood/Venous Blood Culture - Final
No Growth - Final Report
10/24/23 18:26 Blood/Venous Blood Culture - Final
No Growth - Final Report
10/24/23 18:26 Nose MRSA Screen - Final
No Methicillin Resistant Staphylococcus aureus isolated.
10/24/23 18:26 Urine Legionella Urinary Antigen - Final
Negative for Legionella pneumophila Serogroup 1 antigen.
A negative result does not rule out the possiblity of
Legionella infection due to other serogroups or species of
Legionella. Clinical correlation is recommended.
10/24/23 18:26 Urine Streptococcus pneumoniae Antigen (M - Final
Negative for Streptococcus pneumoniae antigen.
A negative result does not exclude infection with
Streptococcus pneumoniae. Clinical correlation is
recommended.
10/24/23 18:26 Nasal Swab Influenza Types A & B (YOBANY) - Final
Negative for Influenza A & B, NAAT
Negative results must be combined with clinical observations
and patient history.
Nucleic Acid Amplification test (NAAT)performed on the
[employer]ed platform.
CXR 10/25/23: Bilateral reticular and airspace opacities as above most likely related to pneumonia, without significant change. Very small bilateral effusions.
Echo: Normal left ventricular wall thickness.
Normal left ventricular chamber size.
Mildly reduced left ventricular systolic function.
Left ventricular ejection fraction is 44% by Anaya's method.
Global hypokinesis, more prominent in the mid and basal segments of the
anterolateral wall.
Normal right ventricular size and function.
Mitral valve opens normally.
Mild to moderate mitral regurgitation.
Trace to mild aortic regurgitation.
Mild tricuspid regurgitation.
The IVC is of normal size and demonstrates normal respiratory variation.
Normal pericardium without effusion.
No significant change noted from 09/2023
Renal U/S:
1. Negative for hydronephrosis. There is increased renal cortical echogenicity, nonspecific but may be seen in association with medical renal disease.
2. Small benign left renal cysts as seen prior. Probable subcentimeter calculus at the left lower pole.
3. Limited evaluation of the urinary bladder as above. Post void residual of 21 mL.
Acute Hypoxic respiratory failure:
-due to pneumonia +/- Interstitial Pneumonitis in setting of Momelotinib
-sepsis due to PNA
-PE unlikely as patient on Coumadin and supratherapeutic
-was on high flow, now weaned to 2L
-all Cxs NG as above
-COVID/Flu negative
-strep/Legionella Ags negative
-MRSA screen NEG, IV Vanco stopped
-completed a course of Zosyn
-cont Decadron (weaned to 2mg IV Q12H)
-Significant leukocytosis, a component of which is likely steroid-induced (also CLL and myelofibrosis)
-afebrile
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
-Cr continues to worsen, now 4.4
-AIN vs CRS
-Cont sodium bicarb
-renal U/S above, no hydro
-renal following. Pt is deciding on whether or not he would want hemodialysis if needed.
-discussed with renal
Chronic HFrEF:
-Echo above and without significant change from September 2023
-I/Os, daily wts (stable)
-cont BB
-home lasix on hold
Steroid-induced hyperglycemia:
-a1c 5.2% on 10/03/23
-diabetes BOGGER OPERATOR following
-cont Lantus 15U, premeal Novolog 10U (daily adjustments with decadron wean)
-SSI/accuchecks
Other problems:
Acute nonischemic myocardial injury likely due to pneumonia/sepsis
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 Onc to see, case discussed with Dr. Mccall.
Anemia of chronic disease: Continue iron sulfate. Transfuse for Hb < 7
Paroxysmal atrial fibrillation: with supratherapeutic INR, s/p Vit K, Cont Amio. cont coumadin (2mg tonight).
CAD: h/o stents, cont ASA/statin/BB
COPD: cont Pulmicort/DuoNebs
Essential hypertension: Cont BB/Norvasc
Hypercholesterolemia: cont statin
Recent C. difficile colitis: Continue oral vancomycin
BPH: Continue finasteride
Full-thickness coccyx/perineal ulcer, likely healing PI stage 3
FULL/coumadin
Total time spent on today's encounter was 50 minutes which included time spent in counseling the patient/family regarding diagnosis and treatment plan as listed above, goals of care, and symptom management. Case was discussed with nursing staff,
specialists, and care coordinators/case management. All labs and imaging personally reviewed by me. Remainder the time spent in detailed review of previous records, lab data, imaging, and other medical provider documentation.
Anticipated Discharge: > 48 hours
Subjective/Interval History
-
Date of Service: November 02, 2023
No new complaints.
Objective Data
-
Labs:
Laboratory Results
11/02/23
07:45
PT 24.5 H
INR 2.22
Vital Signs:
Vital Signs
Temp Pulse Resp BP Pulse Ox
97.9 F 97 16 116/65 98
11/02/23 07:35 11/02/23 08:46 11/02/23 07:44 11/02/23 08:46 11/02/23 08:40
I&O
11/01/23 11/02/23 11/03/23
06:59 06:59 06:59
Intake Total 840 / 840 1490 / 1490
Output Total 500 / 500 960 / 960
Balance 340 / 340 530 / 530
[2023-11-02 11:27] LABS: Hemoglobin 7.4 g/dL (13.0-18.0); Mean Corp Hgb Conc. 29.6 g/dL (33.0-37.0); Mean Corpuscular Hgb 27.5 pg (27.0-31.0); Mean Corpuscular Volume 92.9 fL (80.0-94.0); Red Blood Cell Count 2.69 10^6/uL (4.70-6.10); Red Cell Dist. Width 22.5 % (11.5-14.5); White Blood Cell Count 34.7 10^3/uL (4.8-10.8)
[2023-11-02 11:36] LABS: Blood Urea Nitrogen 117 mg/dl (9-20); Calcium 7.9 mg/dl (8.4-10.2); Carbon Dioxide 23 mmol/L (22-30); Chloride 102 mmol/L (98-107); Estimated Creatinine Clearance 13 ml/min; Glucose 281 mg/dl (70-99); Sodium 135 mmol/L (135-145)
[2023-11-02 11:59] LABS: Glucose - Point of Care 318 mg/dl (70-99)
[2023-11-02] MEDS: NOVOLOG FLEXPEN-MODERATE RESISTANCE 7 UNITS SC (12:00)
[2023-11-02] MEDS: DECADRON 2 MG IV ×2 (12:01→23:41)
--- NOTE | 2023-11-02 13:01 | W.PN.NEPH.PH ---
Today's Communication / Plan
-
- lasix
Assessment/Plan
-
Assessment:
GER on CKD (bl 2.5-3.1), follows with Dr. Emery
acute hypoxic respiratory failure
PNA
HFrEF
Hyperglycemia
BPH
Afib
Plan:
follow BMP. Cr stable at 4.4
off SGLT2i
US without obstruction
weights slightly down after lasix, give another dose today
continue abx
discussed dialysis. leaning towards accepting dialysis if needed
-
-
Date of Service: November 02, 2023
CC / HPI / ROS
-
Chief Complaint:
GER
History of Present Illness:
GER/Cr worse at 4.4
BUN climbing 109
weights increased today
Hgb stable low 7.1
WBC improved at 36
Review of Systems:
no CP/SOB
Labs
-
Labs:
WBC 34.7 10^3/uL (4.8-10.8) H 11/02/23 11:13
RBC 2.69 10^6/uL (4.70-6.10) L 11/02/23 11:13
Hgb 7.4 g/dL (13.0-18.0) L 11/02/23 11:13
Hct 25.0 % (39.0-52.0) L 11/02/23 11:13
Plt Count 10^3/uL (130-400) 11/02/23 11:13
Sodium 135 mmol/L (135-145) 11/02/23 11:13
Potassium 4.0 mmol/L (3.5-5.1) 11/02/23 11:13
Chloride 102 mmol/L (98-107) 11/02/23 11:13
Carbon Dioxide 23 mmol/L (22-30) 11/02/23 11:13
BUN 117 mg/dl (9-20) H* 11/02/23 11:13
Creatinine 4.4 mg/dL (0.7-1.3) H* 11/02/23 11:13
eGFR 12.70 11/02/23 11:13
Glucose 281 mg/dl (70-99) H 11/02/23 11:13
Calcium 7.9 mg/dl (8.4-10.2) L 11/02/23 11:13
Phosphorus 4.9 mg/dl (2.5-4.5) H 10/27/23 06:27
Qmz-B-Sfvutinndii Pept 80026 pg/ml 10/28/23 05:13
Albumin 3.0 g/dl (3.5-5.0) L 10/31/23 07:19
Physical Exam
-
Vital Signs:
Vital Signs
Temp Pulse Resp BP Pulse Ox
97.9 F 97 16 116/65 98
11/02/23 07:35 11/02/23 08:46 11/02/23 07:44 11/02/23 08:46 11/02/23 08:40
Cardiovascular:: Regular rate and rhythm
Respiratory:: Bilateral: Coarse
Lung Excursion:: Normal
Abdomen:: Nontender and Soft
Bowel Sounds:: Normal
Extremity Edema:: +1: Bilateral:
Crespo Catheter: No
[2023-11-02] MEDS: LASIX 40 MG IV (13:20)
[2023-11-02 15:57] VITALS: BP 112/48
[2023-11-02 16:51] LABS: Glucose - Point of Care 197 mg/dl (70-99)
--- NOTE | 2023-11-02 17:26 | W.PN.PUL3 ---
Today's Communication / Plan
-
Chest x-ray tomorrow, may need to obtain a baseline CT chest depending on x-ray results.
Transition to oral steroids. Patient would like to avoid prednisone if possible apparently had some reaction in the past. May use dexamethasone.
Wean down oxygen
Observe off antibiotic completed a course of Zosyn
Assessment
-
Assessment: 83-year-old male former tobacco smoker with past medical history of asthma/COPD, gout, CLL, history of PCV, mild restrictive lung disease, ABELARDO, HFpEF, A-fib s/p multiple DCCV on chronic amiodarone and warfarin, CAD with history of CA s/p
coronary stents and myelofibrosis who presents with low oxygen level. Patient was at his pcu rn/oncologist being treated for CLL and was noted to be hypoxic and sent here for further evaluation. He also endorses SOB over the last several
days with activity. In triage she was saturating 87% on room air, BP 135/62, pulse rate 66 and respiratory rate 18. He was afebrile to 98 �F. Of note he was recently hospitalized here from 09/22 � 09/27/2023 due to C. difficile colitis with GER.
Labs showed Hb 8.1, platelet 4 3, INR 3.79, proBNP 26,300, and TSH 4.93. COVID antigen was negative. Blood cultures were collected. CXR showed bilateral airspace/interstitial infiltrates suspicious for diffuse pneumonia. He was given a DuoNeb
treatment in the ER. He was initially admitted to the IMU, however due to worsening respiratory distress he was transferred to the ICU, started on BiPAP and now psychology technician consulted for additional management/recommendations.
Chronic conditions EMBEDDED CASE MANAGER: CLL, myelofibrosis, A-fib s/p multiple DCCV on chronic amiodarone and warfarin, CAD with history of CA (08/2015) s/p stent to LAD, HFpEF, COPD, hypertension, hypercholesterolemia, DM type II, CKD, anemia and history of C.
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
IVIG, history of gout, BPH
Impression:
#Acute respiratory failure with hypoxia on supplemental oxygen
#Bilateral infiltrates
#Acute on chronic anemia
#Elevated troponin � peaked at 0.144 on 10/25/2023
#Recent CDI on PO vanc
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
#HTN
#Hx of asthma/copd not in an acute exacerbation
#Hx of ABELARDO on auto-BiPAP
#History of bronchiectasis on vest therapy at home
Plan:
Bilateral infiltrates on chest x-ray: Infectious versus inflammatory. Cannot rule out drug-induced ILD.
.
Oxygenation improved-down to 2 L nasal cannula.
Feeling better from the pulmonary perspective.
-
Nocturnal BiPAP 05/07-history of obstructive sleep apnea.
Incentive spirometry.
Continue Decadron for today. Given clinical improvement will transition to oral Decadron tomorrow. Patient would like to avoid prednisone if possible as he had an adverse reaction before. Can give equivalent of 40 mg of prednisone with taper over
the next 2 weeks.
Aspiration precautions.
Repeat CXR in AM. Last chest x-ray 10/25/2023 with significant bilateral infiltrates. If persistently abnormal CT chest will be ordered.
Continue to follow leukocytosis has remained stable, white blood cell count running higher than baseline possibly from steroids.
Cultures reviewed. All negative.
Completed course of Zosyn, observe.
-
Momelotinib - on hold. Rule out drug-induced pneumonitis.
Zosyn continues
Vancomycin orally continues
Continue to follow hemoglobin.
Transfuse as needed..
Continue diuresis if tolerated.
Monitor intake/output, weight, lower extremity edema, and renal function.
Replace electrolytes as needed.
Nephrology following the patient
Monitor blood sugar. Particularly on the steroids.
Insulin supplementation as needed.
DVT prophylaxis.
Outpatient pulmonary [id number] states she follows up at [facility] -Dr. Parson told to obtain films on disc to bring to her next appointment
Patient usually follows up with Dr. Camara.
Data:
CXR 10-25-2023: Bilateral reticular and airspace opacities as above most likely related to pneumonia, without significant change. Very small bilateral effusions.
CXR 10-24-2023: The heart size is within the limits of normal; There are bilateral airspace and interstitial infiltrates, right greater than left, consistent with diffuse pneumonia. Regional skeleton intact.
TTE 10-25-2023:
Normal left ventricular wall thickness.
Normal left ventricular chamber size.
Mildly reduced left ventricular systolic function.
Left ventricular ejection fraction is 44% by Anaya's method.
Global hypokinesis, more prominent in the mid and basal segments of the
anterolateral wall.
Normal right ventricular size and function.
Mitral valve opens normally.
Mild to moderate mitral regurgitation.
Trace to mild aortic regurgitation.
Mild tricuspid regurgitation.
The IVC is of normal size and demonstrates normal respiratory variation.
Normal pericardium without effusion.
No significant change noted from 09/2023
Subjective Data
-
Date of Service:
Date of Service: November 02, 2023
Chief Complaint: Pulmonary Follow Up and Dyspnea Follow Up
Objective Data
Data Reviewed
Vital Signs / I&O / Oxygen:
Vital Signs
Temp Pulse Resp BP Pulse Ox
99.7 F 66 16 112/48 99
11/02/23 15:57 11/02/23 15:57 11/02/23 15:57 11/02/23 15:57 11/02/23 15:57
Intake and Output
11/01/23 11/02/23 11/03/23
06:59 06:59 06:59
Intake Total 840 / 840 1490 / 1490
Output Total 500 / 500 960 / 960
Balance 340 / 340 530 / 530
SaO2 99
Nasal Cannula flow liters per 2
minute
Physical Exam
General: Respiratory Distress (Negative) and Comfortable
HEENT: Normocephalic and Anicteric
Cardiovascular: Peripheral Edema (Negative) and Other (Normal rate)
Respiratory: Wheeze (Negative), Crackles (few basilar), Rhonchi (Negative) and Non-Labored Respirations
GI: Soft, Non Distended, Non Tender and Normal Bowel Sounds
Neurology: Awake, Alert and Tremors (Negative)
Skin: Warm, Dry, Good Color, Cyanosis (Negative), Jaundice (n) and Rash (n)
Labs/Micro/Reports
Lab Data
11/02/23 11:13
11/02/23 11:13
Laboratory Results
11/02/23
07:45
PT 24.5 H
INR 2.22
[2023-11-02] MEDS: FEOSOL 325 MG PO (17:37)
[2023-11-02] MEDS: COUMADIN 2 MG PO (17:37)
[2023-11-02] MEDS: TOPROL XL 12.5 MG PO (17:37)
[2023-11-02] MEDS: CRESTOR 5 MG PO (17:37)
[2023-11-02] MEDS: PROSCAR 5 MG PO (17:37)
[2023-11-02] MEDS: NOVOLOG FLEXPEN-MODERATE RESISTANCE 1 UNITS SC (17:38)
[2023-11-02] MEDS: NORVASC 10 MG PO (17:38)
[2023-11-02] MEDS: FIRVANQ 125 MG PO (17:40)
[2023-11-02 21:15] LABS: Glucose - Point of Care 194 mg/dl (70-99)
[2023-11-02 23:38] VITALS: PULSE 2; PULSE 63
[2023-11-02 23:43] VITALS: BP 137/51
[2023-11-03 06:00] VITALS: BMI 24.3
[2023-11-03 06:30] LABS: INR 2.23; PT 24.6 Sec (11.4-14.6)
[2023-11-03 06:31] LABS: Hematocrit 25.1 % (39.0-52.0); Hemoglobin 7.7 g/dL (13.0-18.0); Mean Corp Hgb Conc. 30.7 g/dL (33.0-37.0); Mean Corpuscular Hgb 28.3 pg (27.0-31.0); Mean Corpuscular Volume 92.3 fL (80.0-94.0); Mean Platelet Volume 11.6 fL (7.4-10.4); Platelet Count 171 10^3/uL (130-400); Red Blood Cell Count 2.72 10^6/uL (4.70-6.10); Red Cell Dist. Width 23.6 % (11.5-14.5); White Blood Cell Count 29.3 10^3/uL (4.8-10.8)
[2023-11-03 06:46] LABS: Calcium 8.2 mg/dl (8.4-10.2); Carbon Dioxide 23 mmol/L (22-30); Chloride 103 mmol/L (98-107); Estimated Creatinine Clearance 13 ml/min; Glucose 103 mg/dl (70-99); Potassium 3.9 mmol/L (3.5-5.1); Sodium 136 mmol/L (135-145)
[2023-11-03 06:57] LABS: Blood Urea Nitrogen 133 mg/dl (9-20)
[2023-11-03] MEDS: PULMICORT 0.5 MG INH ×2 (07:35→19:16)
[2023-11-03] MEDS: DUONEB 3 ML INH ×2 (07:35→19:16)
[2023-11-03 07:39] VITALS: BP 129/50
[2023-11-03 08:04] LABS: Glucose - Point of Care 134 mg/dl (70-99)
[2023-11-03] MEDS: NOVOLOG FLEXPEN-MODERATE RESISTANCE SC (08:09)
--- NOTE | 2023-11-03 08:38 | W.PN.HOSP.TC ---
Today's Communication/Plan
-
see bold
Assessment / Plan
Assessment / Plan
Gen: remains NAD, awake and alert, appears chronically ill
Eyes: EOMI, PERRLA, no scleral icterus.
Neck: supple.
CV: remains irreg/irreg, +S1/S2, no m/r/g.
Resp: CTAB anteriorly, no rales, wheezes, or rhonchi.
Abd: +BS, soft, NT, ND
Skin: No rashes. Ecchymoses on UEs.
Neuro: remains CN 2-12 intact, non-focal.
Psych: Normal mood and affect.
10/24/23 18:26 Blood/Venous Blood Culture - Final
No Growth - Final Report
10/24/23 18:26 Blood/Venous Blood Culture - Final
No Growth - Final Report
10/24/23 18:26 Nose MRSA Screen - Final
No Methicillin Resistant Staphylococcus aureus isolated.
10/24/23 18:26 Urine Legionella Urinary Antigen - Final
Negative for Legionella pneumophila Serogroup 1 antigen.
A negative result does not rule out the possiblity of
Legionella infection due to other serogroups or species of
Legionella. Clinical correlation is recommended.
10/24/23 18:26 Urine Streptococcus pneumoniae Antigen (M - Final
Negative for Streptococcus pneumoniae antigen.
A negative result does not exclude infection with
Streptococcus pneumoniae. Clinical correlation is
recommended.
10/24/23 18:26 Nasal Swab Influenza Types A & B (YOBANY) - Final
Negative for Influenza A & B, NAAT
Negative results must be combined with clinical observations
and patient history.
Nucleic Acid Amplification test (NAAT)performed on the
[employer] platform.
CXR 10/25/23: Bilateral reticular and airspace opacities as above most likely related to pneumonia, without significant change. Very small bilateral effusions.
Echo: Normal left ventricular wall thickness.
Normal left ventricular chamber size.
Mildly reduced left ventricular systolic function.
Left ventricular ejection fraction is 44% by Anaya's method.
Global hypokinesis, more prominent in the mid and basal segments of the
anterolateral wall.
Normal right ventricular size and function.
Mitral valve opens normally.
Mild to moderate mitral regurgitation.
Trace to mild aortic regurgitation.
Mild tricuspid regurgitation.
The IVC is of normal size and demonstrates normal respiratory variation.
Normal pericardium without effusion.
No significant change noted from 09/2023
Renal U/S:
1. Negative for hydronephrosis. There is increased renal cortical echogenicity, nonspecific but may be seen in association with medical renal disease.
2. Small benign left renal cysts as seen prior. Probable subcentimeter calculus at the left lower pole.
3. Limited evaluation of the urinary bladder as above. Post void residual of 21 mL.
Acute Hypoxic respiratory failure:
-due to pneumonia +/- Interstitial Pneumonitis in setting of Momelotinib
-sepsis due to PNA
-PE unlikely as patient on Coumadin and supratherapeutic
-was on high flow, now weaned to 2L
-all Cxs NG as above
-COVID/Flu negative
-strep/Legionella Ags negative
-MRSA screen NEG, IV Vanco stopped
-completed a course of Zosyn
-cont Decadron (weaned to 2mg IV Q12H). Transition to Prednisone tomorrow.
-Significant leukocytosis, a component of which is likely steroid-induced (also CLL and myelofibrosis)
-afebrile
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
-Cr has plateaued at 4.4
-AIN vs CRS
-Cont sodium bicarb
-renal U/S above, no hydro
-renal following. Pt is deciding on whether or not he would want hemodialysis if needed.
Chronic HFrEF:
-Echo above and without significant change from September 2023
-I/Os, daily wts (stable)
-cont BB
-home lasix on hold
Steroid-induced hyperglycemia:
-a1c 5.2% on 10/03/23
-diabetes DREDGE CAPTAIN following
-cont Lantus 15U, premeal Novolog 10U
-SSI/accuchecks
Other problems:
Acute nonischemic myocardial injury likely due to pneumonia/sepsis
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 Onc to see, case discussed with Dr. Mccall.
Anemia of chronic disease: Continue iron sulfate. Transfuse for Hb < 7
Paroxysmal atrial fibrillation: with supratherapeutic INR, s/p Vit K, Cont Amio. cont coumadin (2mg tonight).
CAD: h/o stents, cont ASA/statin/BB
COPD: cont Pulmicort/DuoNebs
Essential hypertension: Cont BB/Norvasc
Hypercholesterolemia: cont statin
Recent C. difficile colitis: Continue oral vancomycin
BPH: Continue finasteride
Full-thickness coccyx/perineal ulcer, likely healing PI stage 3
FULL/coumadin
Anticipated Discharge: 24 - 48 hours
Subjective/Interval History
-
Date of Service: November 03, 2023
No new complaints.
Objective Data
-
Labs:
Laboratory Results
11/03/23
05:59
WBC 29.3 H
Hgb 7.7 L
Hct 25.1 L
Plt Count 171 D
PT 24.6 H
INR 2.23
Sodium 136
Potassium 3.9
Chloride 103
Carbon Dioxide 23
BUN 133 H*
Creatinine 4.4 H*
Glucose 103 H
Calcium 8.2 L
Vital Signs:
Vital Signs
Temp Pulse Resp BP Pulse Ox
97.5 F 61 16 137/51 98
11/02/23 23:43 11/03/23 07:36 11/03/23 07:36 11/02/23 23:43 11/03/23 07:36
I&O
11/02/23 11/03/23 11/04/23
06:59 06:59 06:59
Intake Total 1490 / 1490 750 / 750
Output Total 960 / 960 525 / 525
Balance 530 / 530 225 / 225
[2023-11-03] MEDS: PACERONE 200 MG PO (09:28)
[2023-11-03] MEDS: ASPIR LOW (ENTERIC COATED) 81 MG PO (09:28)
[2023-11-03] MEDS: ULORIC 40 MG PO (09:28)
[2023-11-03] MEDS: MUCINEX 600 MG PO ×2 (09:28→21:32)
[2023-11-03] MEDS: SODIUM BICARBONATE 650 MG PO ×3 (09:28→21:32)
[2023-11-03] MEDS: LANTUS 0.149999999999999994 UNITS SC (09:29)
[2023-11-03] MEDS: NITRO-DUR 0.599999999999999978 MG TRANSDERM (09:30)
[2023-11-03] MEDS: NOVOLOG FLEXPEN 10 UNITS SC ×3 (09:30→17:14)
[2023-11-03 12:03] LABS: Glucose - Point of Care 327 mg/dl (70-99)
[2023-11-03] MEDS: NOVOLOG FLEXPEN-MODERATE RESISTANCE 7 UNITS SC (12:14)
[2023-11-03] MEDS: DECADRON 2 MG IV (12:14)
--- NOTE | 2023-11-03 12:46 | W.PN.NEPH.PH ---
Today's Communication / Plan
-
- Cr stable
- no lasix today
Assessment/Plan
-
Assessment:
GER on CKD (bl 2.5-3.1), follows with Dr. Emery
acute hypoxic respiratory failure
PNA
HFrEF
Hyperglycemia
BPH
Afib
Plan:
follow BMP. Cr stable at 4.4
off SGLT2i
US without obstruction
weights back up today --> i do not think this is truly accurate. i will hold lasix and see how he does
continue abx
discussed dialysis. leaning towards accepting dialysis if needed. needs to discuss with his
-
-
Date of Service: November 03, 2023
CC / HPI / ROS
-
Chief Complaint:
GER
History of Present Illness:
GER/Cr worse at 4.4
BUN climbing 133
weights increased today
Hgb stable low 7.7
WBC improved at 29
Review of Systems:
no CP/SOB
Labs
-
Labs:
WBC 29.3 10^3/uL (4.8-10.8) H 11/03/23 05:59
RBC 2.72 10^6/uL (4.70-6.10) L 11/03/23 05:59
Hgb 7.7 g/dL (13.0-18.0) L 11/03/23 05:59
Hct 25.1 % (39.0-52.0) L 11/03/23 05:59
Plt Count 171 10^3/uL (130-400) D 11/03/23 05:59
Sodium 136 mmol/L (135-145) 11/03/23 05:59
Potassium 3.9 mmol/L (3.5-5.1) 11/03/23 05:59
Chloride 103 mmol/L (98-107) 11/03/23 05:59
Carbon Dioxide 23 mmol/L (22-30) 11/03/23 05:59
BUN 133 mg/dl (9-20) H* 11/03/23 05:59
Creatinine 4.4 mg/dL (0.7-1.3) H* 11/03/23 05:59
eGFR 12.70 11/03/23 05:59
Glucose 103 mg/dl (70-99) H 11/03/23 05:59
Calcium 8.2 mg/dl (8.4-10.2) L 11/03/23 05:59
Phosphorus 4.9 mg/dl (2.5-4.5) H 10/27/23 06:27
Hoj-V-Uxbfwfgkrnq Pept 17536 pg/ml 10/28/23 05:13
Albumin 3.0 g/dl (3.5-5.0) L 10/31/23 07:19
Physical Exam
-
Vital Signs:
Vital Signs
Temp Pulse Resp BP Pulse Ox
97.6 F 73 16 129/50 94
11/03/23 07:39 11/03/23 09:28 11/03/23 07:39 11/03/23 09:28 11/03/23 07:39
Cardiovascular:: Regular rate and rhythm
Respiratory:: Bilateral: Coarse
Lung Excursion:: Normal
Abdomen:: Nontender and Soft
Bowel Sounds:: Normal
Extremity Edema:: +1: Bilateral:
Crespo Catheter: No
--- NOTE | 2023-11-03 15:24 | W.PN.PUL3 ---
Today's Communication / Plan
-
Chest x-ray significantly improved,
Continue IV dexamethasone for today. Consider transition to oral dexamethasone tomorrow with a 2-week taper with close follow-up.
Wean down oxygen currently on 2 L.
Nephrology contemplating possibility of dialysis on the patient.
Assessment
-
Assessment: 83-year-old male former tobacco smoker with past medical history of asthma/COPD, gout, CLL, history of PCV, mild restrictive lung disease, ABELARDO, HFpEF, A-fib s/p multiple DCCV on chronic amiodarone and warfarin, CAD with history of NC s/p
coronary stents and myelofibrosis who presents with low oxygen level. 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 He also endorses SOB over the last several
days with activity. In triage she was saturating 87% on room air, BP 135/62, pulse rate 66 and respiratory rate 18. He was afebrile to 98 �F. Of note he was recently hospitalized here from 09/22 � 09/27/2023 due to C. difficile colitis with GER.
Labs showed Hb 8.1, platelet 4 3, INR 3.79, proBNP 26,300, and TSH 4.93. COVID antigen was negative. Blood cultures were collected. CXR showed bilateral airspace/interstitial infiltrates suspicious for diffuse pneumonia. He was given a DuoNeb
treatment in the ER. He was initially admitted to the IMU, however due to worsening respiratory distress he was transferred to the ICU, started on BiPAP and now cookee consulted for additional management/recommendations.
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
IVIG, history of gout, BPH
Impression:
#Acute respiratory failure with hypoxia on supplemental oxygen
#Bilateral infiltrates
#Acute on chronic anemia
#Elevated troponin � peaked at 0.144 on 10/25/2023
#Recent CDI on PO vanc
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
#HTN
#Hx of asthma/copd not in an acute exacerbation
#Hx of ABELARDO on auto-BiPAP
#History of bronchiectasis on vest therapy at home
Plan:
Bilateral infiltrates on chest x-ray: Infectious versus inflammatory. Cannot rule out drug-induced ILD.
.
Oxygenation improved-down to 2 L nasal cannula.
Clinically improved from the pulmonary perspective. Home oxygen assessment closer to discharge.
Chest x-ray 11/03/2023: Reviewed, showed significant interval improvement in bilateral parenchymal opacities suggesting improvement in pneumonia. Bibasilar atelectasis noted.
-
Continue with current pulmonary care:
Nocturnal BiPAP 05/07-history of obstructive sleep apnea.
Incentive spirometry.
Continue Decadron IV. For 1 additional day.
Given clinical improvement will transition to oral Decadron tomorrow 11/03/2023. Patient would like to avoid prednisone if possible as he had an adverse reaction before. Can give equivalent of 40 mg of prednisone with taper over the next 2 weeks.
Aspiration precautions.
-
Continue to follow leukocytosis has remained stable, white blood cell count running higher than baseline possibly from steroids.
Cultures reviewed. All negative.
Completed course of Zosyn, observe.
-
Momelotinib - on hold. Rule out drug-induced pneumonitis. On the steroids as above.
Zosyn continues
Vancomycin orally continues
Continue to follow hemoglobin.
Transfuse as needed..
Acute kidney disease on chronic kidney disease-worsening.
Nephrology correspondence reviewed: Discussing possibility of dialysis.
Diuresis per nephrology.
Monitor blood sugar. Particularly on the steroids.
Insulin supplementation as needed.
DVT prophylaxis.
Outpatient pulmonary [id number] states she follows up at [facility] -Dr. Parson told to obtain films on disc to bring to her next appointment
Patient usually follows up with Dr. Camara.
-
Pulmonary will continue to follow briefly. He seems to be improving from the respiratory perspective.

Data:
CXR 10-25-2023: Bilateral reticular and airspace opacities as above most likely related to pneumonia, without significant change. Very small bilateral effusions.
CXR 10-24-2023: The heart size is within the limits of normal; There are bilateral airspace and interstitial infiltrates, right greater than left, consistent with diffuse pneumonia. Regional skeleton intact.
TTE 10-25-2023:
Normal left ventricular wall thickness.
Normal left ventricular chamber size.
Mildly reduced left ventricular systolic function.
Left ventricular ejection fraction is 44% by Anaya's method.
Global hypokinesis, more prominent in the mid and basal segments of the
anterolateral wall.
Normal right ventricular size and function.
Mitral valve opens normally.
Mild to moderate mitral regurgitation.
Trace to mild aortic regurgitation.
Mild tricuspid regurgitation.
The IVC is of normal size and demonstrates normal respiratory variation.
Normal pericardium without effusion.
No significant change noted from 09/2023
Subjective Data
-
Date of Service:
Date of Service: November 03, 2023
Chief Complaint: Pulmonary Follow Up and Dyspnea Follow Up
Objective Data
Data Reviewed
Vital Signs / I&O / Oxygen:
Vital Signs
Temp Pulse Resp BP Pulse Ox
97.6 F 73 16 129/50 94
11/03/23 07:39 11/03/23 09:28 11/03/23 07:39 11/03/23 09:28 11/03/23 07:39
Intake and Output
11/02/23 11/03/23 11/04/23
06:59 06:59 06:59
Intake Total 1490 / 1490 750 / 750
Output Total 960 / 960 525 / 525
Balance 530 / 530 225 / 225
SaO2 94
Nasal Cannula flow liters per 2
minute
Physical Exam
General: Respiratory Distress (Negative) and Comfortable
HEENT: Normocephalic and Anicteric
Cardiovascular: Peripheral Edema (Negative) and Other (Normal rate)
Respiratory: Wheeze (Negative), Crackles (few basilar), Rhonchi (Negative) and Non-Labored Respirations
GI: Soft, Non Distended, Non Tender and Normal Bowel Sounds
Neurology: Awake, Alert and Tremors (Negative)
Skin: Warm, Dry, Good Color, Cyanosis (Negative), Jaundice (n) and Rash (n)
Labs/Micro/Reports
Lab Data
11/03/23 05:59
11/03/23 05:59
Laboratory Results
11/03/23
05:59
PT 24.6 H
INR 2.23
[2023-11-03 15:57] VITALS: BP 131/75
[2023-11-03 16:37] LABS: Glucose - Point of Care 281 mg/dl (70-99)
[2023-11-03] MEDS: NOVOLOG FLEXPEN-MODERATE RESISTANCE 5 UNITS SC (17:13)
[2023-11-03] MEDS: COUMADIN 2 MG PO (17:14)
[2023-11-03] MEDS: PROSCAR 5 MG PO (17:14)
[2023-11-03] MEDS: TOPROL XL 12.5 MG PO (17:14)
[2023-11-03] MEDS: CRESTOR 5 MG PO (17:14)
[2023-11-03] MEDS: FIRVANQ 125 MG PO (17:14)
[2023-11-03] MEDS: NORVASC 10 MG PO (17:14)
[2023-11-03 21:21] LABS: Glucose - Point of Care 197 mg/dl (70-99)
[2023-11-03 22:22] VITALS: PULSE 2; PULSE 74
[2023-11-03 23:50] VITALS: BP 128/61
[2023-11-04 06:00] VITALS: BMI 24.4
[2023-11-04 07:15] VITALS: BP 132/55
[2023-11-04 07:20] LABS: INR 2.27; PT 24.9 Sec (11.4-14.6)
[2023-11-04 07:26] LABS: Glucose - Point of Care 116 mg/dl (70-99)
[2023-11-04 07:28] LABS: Hemoglobin 7.8 g/dL (13.0-18.0); Mean Corp Hgb Conc. 28.9 g/dL (33.0-37.0); Mean Corpuscular Hgb 27.4 pg (27.0-31.0); Mean Corpuscular Volume 94.7 fL (80.0-94.0); Mean Platelet Volume 12.3 fL (7.4-10.4); Platelet Count 180 10^3/uL (130-400); Red Blood Cell Count 2.85 10^6/uL (4.70-6.10); Red Cell Dist. Width 23.1 % (11.5-14.5); White Blood Cell Count 26.7 10^3/uL (4.8-10.8)
[2023-11-04 07:47] LABS: Calcium 7.8 mg/dl (8.4-10.2); Carbon Dioxide 24 mmol/L (22-30); Chloride 105 mmol/L (98-107); Estimated Creatinine Clearance 14 ml/min; Glucose 89 mg/dl (70-99); Potassium 3.4 mmol/L (3.5-5.1); Sodium 138 mmol/L (135-145); eGFR 13.82
[2023-11-04 07:56] LABS: Blood Urea Nitrogen 133 mg/dl (9-20)
--- NOTE | 2023-11-04 08:08 | PN.DE.MGMTRT ---
Insulin Management
- -
11/04/2023: Diabetes Management F/U:
83 year old male with PMH: CKD4, HFrEF, CLL/myelofibrosis, anemia of chronic disease, PAFib, CAD, COPD, HTN, DLD, recent C-Diff, BPH
Admitted on 10/23 with Acute Hypoxic respiratory failure 2/2 to pneumonia +/- Interstitial Pneumonitis in setting of Momelotinib. Was started on stress dose steroids- Dexamethasone 4mg Q12 hrs with subsequent Hyperglycemia. Current A1C 5.2%, Pt has
no known hx of Diabetes Mellitus.
Current diabetes regimen includes Lantus 25 units @ HS that has been increased to [address] Vera, NovoLog 10 units AC and NPH 10 units daily in AM with high corrective insulin. States that he is not diabetic but has a glucose monitor at home
and periodically checks his fasting blood sugars because he has been off and on oral steroids.
Pt awake, alert, oriented x3, sitting up in bed, offers no complaints, able to discuss diabetes mgt.
Pt remains on steroids with slow taper-was on Decadron 2 mg Q12hrs over the weekend, transitioned to oral Decadron 3mg daily.
FBG relatively stable, this AM 89(V) and 116 before breakfast.
Pre lunch and dinner glucose still elevated 197 to 327, however, in process of weaning steroids.
Will make no changes to regimen. Cont Lantus 15 units daily in AM and NovoLog 10 units AC.
Anticipate further improvement of glucose with steroid weaning.
Diabetes plan of care discussed with pt and Pt's Nurse.
Diabetes History
- -
Pre-Admission Diabetes Regimen
11/04/23
06:31
Creatinine 4.1 H*
Insulin Pump Settings
IP Diabetes Regimen
11/03/23 11/03/23 11/03/23
12:02 16:36 21:20
Glucose
POC Glucose 327 H 281 H 197 H
11/04/23 11/04/23
06:31 07:15
Glucose 89
POC Glucose 116 H
Meal type: Dinner
Meal type: Lunch
Meal type: Breakfast
Amount consumed: 100%
Amount consumed: 100%
Amount consumed: 100%
Patient Education
[2023-11-04] MEDS: NOVOLOG FLEXPEN 10 UNITS SC ×3 (08:30→17:06)
[2023-11-04] MEDS: NOVOLOG FLEXPEN-MODERATE RESISTANCE SC (08:30)
[2023-11-04] MEDS: PULMICORT 0.5 MG INH ×2 (08:34→19:46)
[2023-11-04] MEDS: DUONEB 3 ML INH ×2 (08:35→19:46)
[2023-11-04 08:52] VITALS: BP 132/55
[2023-11-04] MEDS: NITRO-DUR 0.599999999999999978 MG TRANSDERM (09:24)
[2023-11-04] MEDS: ULORIC 40 MG PO (09:25)
[2023-11-04] MEDS: MUCINEX 600 MG PO ×2 (09:25→21:34)
[2023-11-04] MEDS: ASPIR LOW (ENTERIC COATED) 81 MG PO (09:25)
[2023-11-04] MEDS: SODIUM BICARBONATE 650 MG PO ×3 (09:25→21:33)
[2023-11-04] MEDS: DECADRON 3 MG PO (09:25)
[2023-11-04] MEDS: PACERONE 200 MG PO (09:25)
[2023-11-04] MEDS: KCL ELIXIR 40 MEQ PO (09:28)
[2023-11-04] MEDS: LANTUS 0.149999999999999994 UNITS SC (09:30)
--- NOTE | 2023-11-04 10:11 | W.PN.PUL.V3 ---
Today's Communication / Plan
-
Oral Decadron with taper
Wean oxygen
Increase activity
Finished antibiotics
Radiographs improving
Assessment
-
Assessment: 83-year-old male former tobacco smoker with past medical history of asthma/COPD, gout, CLL, history of PCV, mild restrictive lung disease, ABELARDO, HFpEF, A-fib s/p multiple DCCV on chronic amiodarone and warfarin, CAD with history of DC s/p
coronary stents and myelofibrosis who presents with low oxygen level. 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 He also endorses SOB over the last several
days with activity. In triage she was saturating 87% on room air, BP 135/62, pulse rate 66 and respiratory rate 18. He was afebrile to 98 �F. Of note he was recently hospitalized here from 09/22 � 09/27/2023 due to C. difficile colitis with GER.
Labs showed Hb 8.1, platelet 4 3, INR 3.79, proBNP 26,300, and TSH 4.93. COVID antigen was negative. Blood cultures were collected. CXR showed bilateral airspace/interstitial infiltrates suspicious for diffuse pneumonia. He was given a DuoNeb
treatment in the ER. He was initially admitted to the IMU, however due to worsening respiratory distress he was transferred to the ICU, started on BiPAP and now nozzleman consulted for additional management/recommendations.
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
IVIG, history of gout, BPH
Impression:
#Acute respiratory failure with hypoxia on supplemental oxygen
#Bilateral infiltrates
#Acute on chronic anemia
#Elevated troponin � peaked at 0.144 on 10/25/2023
#Recent CDI on PO vanc
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
#HTN
#Hx of asthma/copd not in an acute exacerbation
#Hx of ABELARDO on auto-BiPAP
#History of bronchiectasis on vest therapy at home
Plan:
Respiratory status continues to slowly improve
Oxygenation improved as well as recovery after exertion-now down to 2 L nasal cannula
BiPAP 12/5 cm continues-tolerating well
Incentive spirometry
Vest therapy
Mucus clearing devices
Assess discharge supplemental oxygen needs prior to discharge
Follow chest x-ray-11/03/2023-significant interval improvement suggesting improved pneumonia
Decadron 3 mg orally has had a reaction to prednisone in the past
Aspiration precautions
Cultures reviewed
Follow leukocytosis
Completed course of Zosyn
Momelotinib - on hold. Rule out drug-induced pneumonitis-on the steroids as above.
Zosyn continues
Vancomycin orally continues
Continue to follow hemoglobin.
Transfuse as needed..
Nephrology following-correspondence reviewed
Lasix held
They have discussed dialysis-patient leaning towards excepting dialysis if needed
Follow blood sugar
Insulin supplementation as needed
DVT prophylaxis-on warfarin
Outpatient pulmonary [id number] states she follows up at [place] -Dr. Parson told to obtain films on disc to bring to her next appointment
Patient usually follows up with Dr. Camara.

Data:
CXR 10-25-2023: Bilateral reticular and airspace opacities as above most likely related to pneumonia, without significant change. Very small bilateral effusions.
CXR 10-24-2023: The heart size is within the limits of normal; There are bilateral airspace and interstitial infiltrates, right greater than left, consistent with diffuse pneumonia. Regional skeleton intact.
TTE 10-25-2023:
Normal left ventricular wall thickness.
Normal left ventricular chamber size.
Mildly reduced left ventricular systolic function.
Left ventricular ejection fraction is 44% by Anaya's method.
Global hypokinesis, more prominent in the mid and basal segments of the
anterolateral wall.
Normal right ventricular size and function.
Mitral valve opens normally.
Mild to moderate mitral regurgitation.
Trace to mild aortic regurgitation.
Mild tricuspid regurgitation.
The IVC is of normal size and demonstrates normal respiratory variation.
Normal pericardium without effusion.
No significant change noted from 09/2023
Subjective Data
-
Date of Service:
Date of Service: November 04, 2023
Chief Complaint: Pulmonary Follow Up and Dyspnea Follow Up
Subjective:
Feels better, less short of breath, recovers faster, oxygen weaned to 2 L, no chest pain, productive cough or abdominal pain
Review of Systems
General: Other (Per HPI)
Objective Data
Data Reviewed
Vital Signs / I&O:
Vital Signs
Temp Pulse Resp BP Pulse Ox
98.6 F 81 16 132/55 97
11/04/23 07:15 11/04/23 09:25 11/04/23 09:01 11/04/23 09:25 11/04/23 09:01
Intake and Output
11/03/23 11/04/23 11/05/23
06:59 06:59 06:59
Intake Total 750 / 750 2130 / 2130
Output Total 525 / 525 1000 / 1000
Balance 225 / 225 1130 / 1130
SaO2: 97
Nasal Cannula flow liters per minute: 2
Physical Exam
General: Respiratory Distress (Negative) and Comfortable
HEENT: Normocephalic, Anicteric and Moist Mucous Membranes
Cardiovascular: Peripheral Edema (Negative) and Other (Normal rate)
Respiratory: Wheeze (Negative), Crackles (few basilar), Rhonchi (Negative) and Non-Labored Respirations
GI: Soft, Non Distended, Non Tender and Normal Bowel Sounds
Neurology: Awake, Alert and Tremors (Negative)
Skin: Warm, Dry, Good Color, Cyanosis (Negative), Jaundice (n) and Rash (n)
Labs/Micro/Reports
Lab Data
11/04/23 06:31
11/04/23 06:31
Laboratory Results
11/04/23
06:31
PT 24.9 H
INR 2.27
--- NOTE | 2023-11-04 10:58 | W.PN.ONC ---
Today's Communication / Plan
-
Would continue to hold momelotinib�at least for the next couple of days. There is always a small possibility that it may be contributing to his renal problems. Hematologically stable.
Impression
Impression
respiratory failure - hypoxia - bilateral infiltrates
acute on chronic renal failure
h/o MPN/ myelofibrosis
CLL
Plan
Plan
1. Myeloproliferative/ myelofibrosis -
-momelotinib is on hold - in setting of acute illness
-hemoglobin is holding in the 7g/dl range and plts are stable
-WBC is running higher than baseline - on steroids
-continue to follow CBC
will continue to follow with you
Subjective/Objective
Subjective/Objective
He is feeling a little better. He is on decreasing amounts of oxygen. Physical examination is unchanged. There are coarse breath sounds. Heart tones are unremarkable.
Vital Signs:
Vital Signs
Temp Pulse Resp BP Pulse Ox
98.6 F 81 16 132/55 97
11/04/23 07:15 11/04/23 09:25 11/04/23 09:01 11/04/23 09:25 11/04/23 10:12
Lab Results:
Laboratory Data
WBC 26.7 10^3/uL (4.8-10.8) H 11/04/23 06:31
Hgb 7.8 g/dL (13.0-18.0) L 11/04/23 06:31
Plt Count 180 10^3/uL (130-400) 11/04/23 06:31
PT 24.9 Sec (11.4-14.6) H 11/04/23 06:31
INR 2.27 11/04/23 06:31
APTT 34.1 Sec (23.4-35.0) 10/27/23 06:27
eGFR 13.82 11/04/23 06:31
--- NOTE | 2023-11-04 11:32 | CM ---
Patient seen at bedside. Patient remains on O2. Patient continuing to consider HD. CM will continue to follow for discharge planning needs.
Plan; home with , considering HD; would need community chair and has no home O2 if he still needs it.
[2023-11-04 11:48] LABS: Glucose - Point of Care 194 mg/dl (70-99)
[2023-11-04] MEDS: NOVOLOG FLEXPEN-MODERATE RESISTANCE 1 UNITS SC (12:57)
--- NOTE | 2023-11-04 15:19 | W.PN.HOSP.TC ---
Today's Communication/Plan
-
k repletion
incentive richy
wean o2
steroid taper
renal recs for diuretics
Assessment / Plan
Assessment / Plan
Gen: remains NAD, awake and alert, appears chronically ill
Eyes: EOMI, PERRLA, no scleral icterus.
Neck: supple.
CV: remains irreg/irreg, +S1/S2, no m/r/g.
Resp: CTAB anteriorly, no rales, wheezes, or rhonchi.
Abd: +BS, soft, NT, ND
Skin: No rashes. Ecchymoses on UEs.
Neuro: remains CN 2-12 intact, non-focal.
Psych: Normal mood and affect.
10/24/23 18:26 Blood/Venous Blood Culture - Final
No Growth - Final Report
10/24/23 18:26 Blood/Venous Blood Culture - Final
No Growth - Final Report
10/24/23 18:26 Nose MRSA Screen - Final
No Methicillin Resistant Staphylococcus aureus isolated.
10/24/23 18:26 Urine Legionella Urinary Antigen - Final
Negative for Legionella pneumophila Serogroup 1 antigen.
A negative result does not rule out the possiblity of
Legionella infection due to other serogroups or species of
Legionella. Clinical correlation is recommended.
10/24/23 18:26 Urine Streptococcus pneumoniae Antigen (M - Final
Negative for Streptococcus pneumoniae antigen.
A negative result does not exclude infection with
Streptococcus pneumoniae. Clinical correlation is
recommended.
10/24/23 18:26 Nasal Swab Influenza Types A & B (YOBANY) - Final
Negative for Influenza A & B, NAAT
Negative results must be combined with clinical observations
and patient history.
Nucleic Acid Amplification test (NAAT)performed on the
[facility] platform.
CXR 10/25/23: Bilateral reticular and airspace opacities as above most likely related to pneumonia, without significant change. Very small bilateral effusions.
Echo: Normal left ventricular wall thickness.
Normal left ventricular chamber size.
Mildly reduced left ventricular systolic function.
Left ventricular ejection fraction is 44% by Anaya's method.
Global hypokinesis, more prominent in the mid and basal segments of the
anterolateral wall.
Normal right ventricular size and function.
Mitral valve opens normally.
Mild to moderate mitral regurgitation.
Trace to mild aortic regurgitation.
Mild tricuspid regurgitation.
The IVC is of normal size and demonstrates normal respiratory variation.
Normal pericardium without effusion.
No significant change noted from 09/2023
Renal U/S:
1. Negative for hydronephrosis. There is increased renal cortical echogenicity, nonspecific but may be seen in association with medical renal disease.
2. Small benign left renal cysts as seen prior. Probable subcentimeter calculus at the left lower pole.
3. Limited evaluation of the urinary bladder as above. Post void residual of 21 mL.
Acute Hypoxic respiratory failure:
-due to pneumonia +/- Interstitial Pneumonitis in setting of Momelotinib
-sepsis due to PNA
-PE unlikely as patient on Coumadin and supratherapeutic
-was on high flow, now weaned to 2L
-all Cxs NG as above
-COVID/Flu negative
-strep/Legionella Ags negative
-MRSA screen NEG, IV Vanco stopped
-completed a course of Zosyn
-cont Decadron (weaned to 2mg IV Q12H). Transitioned to decadron taper due to prednisone allergy
-Wean o2 as tolerated; Goal o2> 90%
-Incentive Spirometry, early ambulation
-Significant leukocytosis, a component of which is likely steroid-induced (also CLL and myelofibrosis)
-afebrile
#Leukocytosis
-most likely related to steroids at this time
-Monitor fever curve, wbc
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
-Cr has plateaued at 4.4
-AIN vs CRS
-Cont sodium bicarb
-renal U/S above, no hydro
-renal following. Pt is deciding on whether or not he would want hemodialysis if needed.
-lasix as per renal
Chronic HFrEF:
-Echo above and without significant change from September 2023
-I/Os, daily wts (stable)
-cont BB
-home lasix on hold
#Hypokalemia
-monitor and replete
Steroid-induced hyperglycemia:
-a1c 5.2% on 10/03/23
-diabetes MAINTENANCE GROUNDMAN following
-cont Lantus 15U, premeal Novolog 10U
-SSI/accuchecks
Other problems:
Acute nonischemic myocardial injury likely due to pneumonia/sepsis
h/o CLL/myelofibrosis: was on Momelotinib RIVETER PORTABLE MACHINE. Onc to see, case discussed with Dr. [facility]. Hold momelotinib - f/u heme outpatient
Anemia of chronic disease: Continue iron sulfate. Transfuse for Hb < 7
Paroxysmal atrial fibrillation: with supratherapeutic INR, s/p Vit K, Cont Amio. cont coumadin (2mg tonight).
CAD: h/o stents, cont ASA/statin/BB
COPD: cont Pulmicort/DuoNebs
Essential hypertension: Cont BB/Norvasc
Hypercholesterolemia: cont statin
Recent C. difficile colitis: Continue oral vancomycin - almost completed
BPH: Continue finasteride
Full-thickness coccyx/perineal ulcer, likely healing PI stage 3
FULL/coumadin
Anticipated Discharge: 24 - 48 hours
Subjective/Interval History
-
Date of Service: November 04, 2023
No acute events, on 2 L nasal cannula, improving; tolerated BiPAP overnight
Objective Data
-
Labs:
Laboratory Results
11/04/23
06:31
WBC 26.7 H
Hgb 7.8 L
Hct 27.0 L
Plt Count 180
PT 24.9 H
INR 2.27
Sodium 138
Potassium 3.4 L
Chloride 105
Carbon Dioxide 24
BUN 133 H*
Creatinine 4.1 H*
Glucose 89
Calcium 7.8 L
Vital Signs:
Vital Signs
Temp Pulse Resp BP Pulse Ox
98.6 F 81 16 132/55 97
11/04/23 07:15 11/04/23 09:25 11/04/23 09:01 11/04/23 09:25 11/04/23 10:12
I&O
11/03/23 11/04/23 11/05/23
06:59 06:59 06:59
Intake Total 750 / 750 2130 / 2130
Output Total 525 / 525 1000 / 1000
Balance 225 / 225 1130 / 1130
Review of Systems
-
History Source: Patient
All other systems: Not reviewed unless documented
Data Reviewed
-
Diagnostic Radiology: Image personally visualized and interpreted and Report Reviewed by me
[2023-11-04 15:57] VITALS: BP 128/57
--- NOTE | 2023-11-04 15:58 | W.PN.NEPH.PH ---
Today's Communication / Plan
-
hold lasix, follow labs
Assessment/Plan
-
Assessment:
GER on CKD (bl 2.5-3.1), follows with Dr. Emery
acute hypoxic respiratory failure
PNA
HFrEF
Hyperglycemia
BPH
Afib
Plan:
cr slow to improve at 4.1, BUN still up at 133
non oliguric and stable vol status
no emergent indication of HD
US without obstruction
weights back up today not accurate, done in bed scale previous ones are SS
holding lasix and [id number]
continue abx, steroid per pulm-stable resp status on 2lit
replace k
holding Ojjaara as there could be relation of GER with it-d/w Onc
discussed wiht in detail about high risk of dialysis this admit
we reviewed in detail about potential impairing QOL.
He would accpet HD when in need, although he would want to be included in discussion-review tomorrow with
high risk encounter, TT spent 40min
-
-
Date of Service: November 04, 2023
CC / HPI / ROS
-
Chief Complaint:
GER
History of Present Illness:
GER/Cr better at 4.1
BUN climbing and unchanged 133
weights increased today
Hgb stable low 7.8
WBC improved at 26.7
Review of Systems:
no CP/SOB at rest
non oliguric
Labs
-
Labs:
WBC 26.7 10^3/uL (4.8-10.8) H 11/04/23 06:31
RBC 2.85 10^6/uL (4.70-6.10) L 11/04/23 06:31
Hgb 7.8 g/dL (13.0-18.0) L 11/04/23 06:31
Hct 27.0 % (39.0-52.0) L 11/04/23 06:31
Plt Count 180 10^3/uL (130-400) 11/04/23 06:31
Sodium 138 mmol/L (135-145) 11/04/23 06:31
Potassium 3.4 mmol/L (3.5-5.1) L 11/04/23 06:31
Chloride 105 mmol/L (98-107) 11/04/23 06:31
Carbon Dioxide 24 mmol/L (22-30) 11/04/23 06:31
BUN 133 mg/dl (9-20) H* 11/04/23 06:31
Creatinine 4.1 mg/dL (0.7-1.3) H* 11/04/23 06:31
eGFR 13.82 11/04/23 06:31
Glucose 89 mg/dl (70-99) 11/04/23 06:31
Calcium 7.8 mg/dl (8.4-10.2) L 11/04/23 06:31
Phosphorus 4.9 mg/dl (2.5-4.5) H 10/27/23 06:27
[id number] Pept [id number] pg/ml 10/28/23 05:13
Albumin 3.0 g/dl (3.5-5.0) L 10/31/23 07:19
Physical Exam
-
Vital Signs:
Vital Signs
Temp Pulse Resp BP Pulse Ox
98.6 F 81 16 132/55 97
11/04/23 07:15 11/04/23 09:25 11/04/23 09:01 11/04/23 09:25 11/04/23 10:12
Cardiovascular:: Regular rate and rhythm
Respiratory:: Bilateral: CTA (decreased BS)
Lung Excursion:: Normal
Abdomen:: Nontender and Soft
Extremity Edema:: +1: Bilateral:
Crespo Catheter: No
[2023-11-04 17:02] LABS: Glucose - Point of Care 250 mg/dl (70-99)
[2023-11-04] MEDS: NOVOLOG FLEXPEN-MODERATE RESISTANCE 5 UNITS SC (17:07)
[2023-11-04] MEDS: CRESTOR 5 MG PO (18:18)
[2023-11-04] MEDS: NORVASC 10 MG PO (18:18)
[2023-11-04] MEDS: FEOSOL 325 MG PO (18:19)
[2023-11-04] MEDS: COUMADIN 2 MG PO (18:19)
[2023-11-04] MEDS: PROSCAR 5 MG PO (18:19)
[2023-11-04] MEDS: TOPROL XL 12.5 MG PO (18:19)
[2023-11-04] MEDS: FIRVANQ 125 MG PO (18:21)
[2023-11-04 21:39] LABS: Glucose - Point of Care 212 mg/dl (70-99)
[2023-11-04 23:37] VITALS: PULSE 2; PULSE 77
[2023-11-04 23:55] VITALS: BP 120/51
[2023-11-05 06:00] VITALS: BMI 24.4
[2023-11-05 07:12] LABS: Glucose - Point of Care 146 mg/dl (70-99)
[2023-11-05] MEDS: PULMICORT 0.5 MG INH (07:12)
[2023-11-05] MEDS: DUONEB 3 ML INH ×2 (07:12→21:09)
[2023-11-05 07:35] VITALS: BP 129/46
[2023-11-05] MEDS: NOVOLOG FLEXPEN-MODERATE RESISTANCE SC (07:38)
--- NOTE | 2023-11-05 08:32 | PN.DE.MGMTRT ---
Insulin Management
- -
11/05/2023: Diabetes Management Follow up:
Patient admitted on 10/23 with Acute Hypoxic respiratory failure 2/2 to pneumonia +/- Interstitial Pneumonitis in setting of Momelotinib. PMH: CKD4, HFrEF, CLL/myelofibrosis, anemia of chronic disease, PAFib, CAD, COPD, HTN, DLD, recent C-Diff, BPH.
Was started on stress dose steroids- Dexamethasone 4mg Q12 hrs with subsequent Hyperglycemia. Current A1C 5.2%, Pt has no known hx of Diabetes Mellitus.
Current diabetes regimen includes Lantus 25 units @ HS that has been increased to [address] Vera, NovoLog 10 units AC and NPH 10 units daily in AM with high corrective insulin. States that he is not diabetic but has a glucose monitor at home
and periodically checks his fasting blood sugars because he has been off and on oral steroids.
Pt awake, alert, oriented x3, sitting up in bed, offers no complaints, able to discuss diabetes mgt. Patient states he is not sure he actually has diabetes but has taken insulin at home before and has a glucose monitor.
Pt remains on steroids with slow taper-was on Decadron 2 mg Q12hrs over the weekend, transitioned to oral Decadron 3mg daily.
Fasting this AM 146, pre meal range yesterday 116 to 250.
Will continue Lantus 15 units daily in AM, increase NovoLog 12 units AC.
Anticipate further improvement of glucose with steroid weaning.
Diabetes plan of care discussed with pt and Pt's Nurse.
Diabetes History
- -
Type of Diabetes: 2
Pre-Admission Diabetes Regimen
Insulin Pump Settings
IP Diabetes Regimen
11/04/23 11/04/23 11/04/23
11:45 16:54 21:37
POC Glucose 194 H 250 H 212 H
11/05/23
07:11
POC Glucose 146 H
Meal type: Breakfast
Amount consumed: 100%
Patient Education
[2023-11-05 08:52] LABS: Hemoglobin 7.7 g/dL (13.0-18.0); Mean Corp Hgb Conc. 29.6 g/dL (33.0-37.0); Mean Corpuscular Hgb 27.6 pg (27.0-31.0); Mean Corpuscular Volume 93.2 fL (80.0-94.0); Mean Platelet Volume 11.4 fL (7.4-10.4); Platelet Count 198 10^3/uL (130-400); Red Blood Cell Count 2.79 10^6/uL (4.70-6.10); Red Cell Dist. Width 23.8 % (11.5-14.5); White Blood Cell Count 24.8 10^3/uL (4.8-10.8)
[2023-11-05 08:58] LABS: INR 2.23; PT 24.6 Sec (11.4-14.6)
[2023-11-05] MEDS: SODIUM BICARBONATE 650 MG PO ×3 (09:26→20:42)
[2023-11-05] MEDS: ASPIR LOW (ENTERIC COATED) 81 MG PO (09:26)
[2023-11-05] MEDS: NITRO-DUR 0.599999999999999978 MG TRANSDERM (09:26)
[2023-11-05] MEDS: ULORIC 40 MG PO (09:28)
[2023-11-05] MEDS: LANTUS 0.149999999999999994 UNITS SC (09:28)
[2023-11-05] MEDS: MUCINEX 600 MG PO ×2 (09:28→20:41)
[2023-11-05] MEDS: DECADRON 3 MG PO (09:30)
[2023-11-05] MEDS: PACERONE 200 MG PO (09:37)
[2023-11-05 09:40] LABS: Blood Urea Nitrogen 128 mg/dl (9-20); Calcium 7.9 mg/dl (8.4-10.2); Carbon Dioxide 20 mmol/L (22-30); Chloride 107 mmol/L (98-107); Estimated Creatinine Clearance 15 ml/min; Glucose 114 mg/dl (70-99); Potassium 4.1 mmol/L (3.5-5.1); Sodium 138 mmol/L (135-145); eGFR 14.68
--- NOTE | 2023-11-05 09:41 | W.PN.PUL.V3 ---
Today's Communication / Plan
-
slow oral Decadron taper.
Wean oxygen.
Increase activity.
Observe off antibiotics.
Diuretics per nephrology-on hold
Assessment
-
Assessment: 83-year-old male former tobacco smoker with past medical history of asthma/COPD, gout, CLL, history of PCV, mild restrictive lung disease, ABELARDO, HFpEF, A-fib s/p multiple DCCV on chronic amiodarone and warfarin, CAD with history of MS s/p
coronary stents and myelofibrosis who presents with low oxygen level. 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 He also endorses SOB over the last several
days with activity. In triage she was saturating 87% on room air, BP 135/62, pulse rate 66 and respiratory rate 18. He was afebrile to 98 �F. Of note he was recently hospitalized here from 09/22ue to C. difficile colitis with GER.
Labs showed Hb 8.1, platelet 4 3, INR 3.79, proBNP 26,300, and TSH 4.93. COVID antigen was negative. Blood cultures were collected. CXR showed bilateral airspace/interstitial infiltrates suspicious for diffuse pneumonia. He was given a DuoNeb
treatment in the ER. He was initially admitted to the IMU, however due to worsening respiratory distress he was transferred to the ICU, started on BiPAP and now program research specialist consulted for additional management/recommendations.
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
IVIG, history of gout, BPH
Impression:
#Acute respiratory failure with hypoxia on supplemental oxygen
#Bilateral infiltrates
#Acute on chronic anemia
#Elevated troponin � peaked at 0.144 on 10/25/2023
#Recent CDI on PO vanc
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
#HTN
#Hx of asthma/copd not in an acute exacerbation
#Hx of ABELARDO on auto-BiPAP
#History of bronchiectasis on vest therapy at home
Plan:
His pulmonary status continues to slowly improve
Oxygenation improved as well as recovery after exertion-now down to 1 L nasal cannula
BiPAP 12/5 cm with supplemental oxygen continues-tolerating well
Incentive spirometry
Vest therapy will continue
Mucus clearing devices
Assess discharge supplemental oxygen needs prior to discharge
Follow chest x-ray-11/03/2023-significant interval improvement suggesting improved pneumonia
Decadron 3 mg orally has had a reaction to prednisone in the past-slow reduction.
His reported Prednisone reaction is leg swelling and hyperglycemia-he has used prednisone multiple times without severe adverse reactions
Aspiration precautions
Cultures reviewed
Follow leukocytosis
Completed course of Zosyn
Momelotinib - on hold rule out drug-induced pneumonitis-on the steroids as above.
Zosyn continues
Vancomycin orally continues
Patient also on amiodarone 200 mg daily-this dose usually does not cause pulmonary toxicity
Continue to follow hemoglobin.
Transfuse as needed..
Nephrology following-correspondence reviewed
Lasix held
They have discussed dialysis-patient leaning towards excepting dialysis if needed
Follow blood sugar
Insulin supplementation as needed
DVT prophylaxis-on warfarin
Outpatient pulmonary juspmu-wl-ptd states she follows up at [facility] -Dr. Parson told to obtain films on disc to bring to her next appointment
Patient usually follows up with Dr. Camara.

Data:
CXR 10-25-2023: Bilateral reticular and airspace opacities as above most likely related to pneumonia, without significant change. Very small bilateral effusions.
CXR 10-24-2023: The heart size is within the limits of normal; There are bilateral airspace and interstitial infiltrates, right greater than left, consistent with diffuse pneumonia. Regional skeleton intact.
TTE 10-25-2023:
Normal left ventricular wall thickness.
Normal left ventricular chamber size.
Mildly reduced left ventricular systolic function.
Left ventricular ejection fraction is 44% by Anaya's method.
Global hypokinesis, more prominent in the mid and basal segments of the
anterolateral wall.
Normal right ventricular size and function.
Mitral valve opens normally.
Mild to moderate mitral regurgitation.
Trace to mild aortic regurgitation.
Mild tricuspid regurgitation.
The IVC is of normal size and demonstrates normal respiratory variation.
Normal pericardium without effusion.
No significant change noted from 09/2023
Subjective Data
-
Date of Service:
Date of Service: November 05, 2023
Chief Complaint: Pulmonary Follow Up and Dyspnea Follow Up
Subjective:
Continues to feel better, no complaints of increasing shortness of breath, chest congestion, productive cough
Review of Systems
General: Other ( per HPI)
Objective Data
Data Reviewed
Vital Signs / I&O:
Vital Signs
Temp Pulse Resp BP Pulse Ox
97.5 F 65 24 129/46 97
11/05/23 07:35 11/05/23 07:35 11/05/23 07:35 11/05/23 07:35 11/05/23 09:28
Intake and Output
11/04/23 11/05/23 11/06/23
06:59 06:59 06:59
Intake Total 2130 / 2130 1050 / 1050
Output Total 1000 / 1000 650 / 650
Balance 1130 / 1130 400 / 400
SaO2: 97
Nasal Cannula flow liters per minute: 1
Physical Exam
General: Respiratory Distress (Negative) and Comfortable
HEENT: Normocephalic, Anicteric and Moist Mucous Membranes
Cardiovascular: Peripheral Edema (Negative) and Other (Normal rate)
Respiratory: Wheeze (Negative), Crackles (few basilar), Rhonchi (Negative) and Non-Labored Respirations
GI: Soft, Non Distended, Non Tender and Normal Bowel Sounds
Neurology: Awake, Alert and Tremors (Negative)
Skin: Warm, Dry, Good Color, Cyanosis (Negative), Jaundice (n) and Rash (n)
Labs/Micro/Reports
Lab Data
11/05/23 07:34
11/05/23 07:34
Laboratory Results
11/05/23
07:34
PT 24.6 H
INR 2.23
[2023-11-05] MEDS: NOVOLOG FLEXPEN 12 UNITS SC ×3 (09:45→16:36)
[2023-11-05] MEDS: NOVOLOG FLEXPEN SC (09:53)
[2023-11-05 11:39] LABS: Glucose - Point of Care 235 mg/dl (70-99)
[2023-11-05] MEDS: NOVOLOG FLEXPEN-MODERATE RESISTANCE 3 UNITS SC (12:27)
--- NOTE | 2023-11-05 13:59 | W.PN.HOSP.TC ---
Today's Communication/Plan
-
steroid taper
vanc taper
holding lasix, f/u renal recs
Assessment / Plan
Assessment / Plan
Gen: remains NAD, awake and alert, appears chronically ill
Eyes: EOMI, PERRLA, no scleral icterus.
Neck: supple.
CV: remains irreg/irreg, +S1/S2, no m/r/g.
Resp: CTAB anteriorly, no rales, wheezes, or rhonchi.
Abd: +BS, soft, NT, ND
Skin: No rashes. Ecchymoses on UEs.
Neuro: remains CN 2-12 intact, non-focal.
Psych: Normal mood and affect.
10/24/23 18:26 Blood/Venous Blood Culture - Final
No Growth - Final Report
10/24/23 18:26 Blood/Venous Blood Culture - Final
No Growth - Final Report
10/24/23 18:26 Nose MRSA Screen - Final
No Methicillin Resistant Staphylococcus aureus isolated.
10/24/23 18:26 Urine Legionella Urinary Antigen - Final
Negative for Legionella pneumophila Serogroup 1 antigen.
A negative result does not rule out the possiblity of
Legionella infection due to other serogroups or species of
Legionella. Clinical correlation is recommended.
10/24/23 18:26 Urine Streptococcus pneumoniae Antigen (M - Final
Negative for Streptococcus pneumoniae antigen.
A negative result does not exclude infection with
Streptococcus pneumoniae. Clinical correlation is
recommended.
10/24/23 18:26 Nasal Swab Influenza Types A & B (YOBANY) - Final
Negative for Influenza A & B, NAAT
Negative results must be combined with clinical observations
and patient history.
Nucleic Acid Amplification test (NAAT)performed on the
[employer] platform.
CXR 10/25/23: Bilateral reticular and airspace opacities as above most likely related to pneumonia, without significant change. Very small bilateral effusions.
Echo: Normal left ventricular wall thickness.
Normal left ventricular chamber size.
Mildly reduced left ventricular systolic function.
Left ventricular ejection fraction is 44% by Anaya's method.
Global hypokinesis, more prominent in the mid and basal segments of the
anterolateral wall.
Normal right ventricular size and function.
Mitral valve opens normally.
Mild to moderate mitral regurgitation.
Trace to mild aortic regurgitation.
Mild tricuspid regurgitation.
The IVC is of normal size and demonstrates normal respiratory variation.
Normal pericardium without effusion.
No significant change noted from 09/2023
Renal U/S:
1. Negative for hydronephrosis. There is increased renal cortical echogenicity, nonspecific but may be seen in association with medical renal disease.
2. Small benign left renal cysts as seen prior. Probable subcentimeter calculus at the left lower pole.
3. Limited evaluation of the urinary bladder as above. Post void residual of 21 mL.
Acute Hypoxic respiratory failure:
-due to pneumonia +/- Interstitial Pneumonitis in setting of Momelotinib
-sepsis due to PNA
-PE unlikely as patient on Coumadin and supratherapeutic
-was on high flow, now weaned to 2L
-all Cxs NG as above
-COVID/Flu negative
-strep/Legionella Ags negative
-MRSA screen NEG, IV Vanco stopped
-completed a course of Zosyn
-cont Decadron (weaned to 2mg IV Q12H). Transitioned to decadron taper due to prednisone allergy
-Wean o2 as tolerated; Goal o2> 90%
-Incentive Spirometry, early ambulation
-Significant leukocytosis, a component of which is likely steroid-induced (also CLL and myelofibrosis)
-afebrile
#Leukocytosis
-most likely related to steroids at this time
-Monitor fever curve, wbc
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
-Cr has plateaued at 4.4
-AIN vs CRS
-Cont sodium bicarb
-renal U/S above, no hydro
-renal following. Pt is deciding on whether or not he would want hemodialysis if needed.
-lasix as per renal
Chronic HFrEF:
-Echo above and without significant change from September 2023
-I/Os, daily wts (stable)
-cont BB
-home lasix on hold
#Hypokalemia
-monitor and replete
Steroid-induced hyperglycemia:
-a1c 5.2% on 10/03/23
-diabetes CAR PORTER following
-cont Lantus 15U, premeal Novolog 12U
-SSI/accuchecks
Other problems:
Acute nonischemic myocardial injury likely due to pneumonia/sepsis
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 Onc to see, case discussed with Dr. Mccall. Hold momelotinib - f/u heme outpatient
Anemia of chronic disease: Continue iron sulfate. Transfuse for Hb < 7
Paroxysmal atrial fibrillation: with supratherapeutic INR, s/p Vit K, Cont Amio. cont coumadin (2mg tonight).
CAD: h/o stents, cont ASA/statin/BB
COPD: cont Pulmicort/DuoNebs
Essential hypertension: Cont BB/Norvasc
Hypercholesterolemia: cont statin
Recent C. difficile colitis: Continue oral vancomycin - Cont steroid taper
BPH: Continue finasteride
Full-thickness coccyx/perineal ulcer, likely healing PI stage 3
FULL/coumadin
Anticipated Discharge: 24 - 48 hours
Subjective/Interval History
-
Date of Service: November 05, 2023
no acute events
Objective Data
-
Labs:
Laboratory Results
11/05/23
07:34
WBC 24.8 H
Hgb 7.7 L
Hct 26.0 L
Plt Count 198
PT 24.6 H
INR 2.23
Sodium 138
Potassium 4.1
Chloride 107
Carbon Dioxide 20 L
BUN 128 H*
Creatinine 3.9 H
Glucose 114 H
Calcium 7.9 L
Vital Signs:
Vital Signs
Temp Pulse Resp BP Pulse Ox
97.5 F 65 24 129/46 97
11/05/23 07:35 11/05/23 07:35 11/05/23 07:35 11/05/23 07:35 11/05/23 09:41
I&O
11/04/23 11/05/23 11/06/23
06:59 06:59 06:59
Intake Total 2130 / 2130 1050 / 1050
Output Total 1000 / 1000 650 / 650
Balance 1130 / 1130 400 / 400
Review of Systems
-
History Source: Patient
All other systems: Not reviewed unless documented
Data Reviewed
-
Diagnostic Radiology: Image personally visualized and interpreted and Report Reviewed by me
[2023-11-05 14:15] VITALS: BP 124/46
--- NOTE | 2023-11-05 16:11 | W.PN.NEPH.PH ---
Today's Communication / Plan
-
If improving renal function hopefully no dialysis this admit
would still cont to hold lasix
follow labs in am
Assessment/Plan
-
Assessment:
GER on CKD (bl 2.5-3.1), follows with Dr. Emery
acute hypoxic respiratory failure
PNA
HFrEF
Hyperglycemia
BPH
Afib
Plan:
cr slow to improve at 3.9, BUN improving to 128
non oliguric and stable vol status
no emergent indication of HD
US without obstruction
weights no change today, done in bed scale previous ones are SS
holding lasix and [id number] still
continue abx, steroid per pulm-stable resp status on RA
holding Ojjaara as there could be relation of GER with it-d/w Onc 11/03
discussed with pt in detail about high risk of dialysis this admit
we reviewed in detail about potential impairing QOL with burden of dialysis.
He is hoping for avoiding HD this admit so he has some time to get things situated at home and doc appointments
high risk encounter, TT spent 40min
-
-
Date of Service: November 05, 2023
CC / HPI / ROS
-
Chief Complaint:
GER
History of Present Illness:
GER/Cr better at 3.9
BUN better at 128
weights no change, bump from few days ago
Hgb stable low 7.7
WBC improved at 24.8
Review of Systems:
no CP/SOB at rest
non oliguric
Labs
-
Labs:
WBC 24.8 10^3/uL (4.8-10.8) H 11/05/23 07:34
RBC 2.79 10^6/uL (4.70-6.10) L 11/05/23 07:34
Hgb 7.7 g/dL (13.0-18.0) L 11/05/23 07:34
Hct 26.0 % (39.0-52.0) L 11/05/23 07:34
Plt Count 198 10^3/uL (130-400) 11/05/23 07:34
Sodium 138 mmol/L (135-145) 11/05/23 07:34
Potassium 4.1 mmol/L (3.5-5.1) 11/05/23 07:34
Chloride 107 mmol/L (98-107) 11/05/23 07:34
Carbon Dioxide 20 mmol/L (22-30) L 11/05/23 07:34
BUN 128 mg/dl (9-20) H* 11/05/23 07:34
Creatinine 3.9 mg/dL (0.7-1.3) H 11/05/23 07:34
eGFR 14.68 11/05/23 07:34
Glucose 114 mg/dl (70-99) H 11/05/23 07:34
Calcium 7.9 mg/dl (8.4-10.2) L 11/05/23 07:34
Phosphorus 4.9 mg/dl (2.5-4.5) H 10/27/23 06:27
Yno-M-Wmwbljwhayd Pept 61018 pg/ml 10/28/23 05:13
Albumin 3.0 g/dl (3.5-5.0) L 10/31/23 07:19
Physical Exam
-
Vital Signs:
Vital Signs
Temp Pulse Resp BP Pulse Ox
97.5 F 63 20 124/46 95
11/05/23 14:15 11/05/23 14:15 11/05/23 14:15 11/05/23 14:15 11/05/23 15:45
Cardiovascular:: Regular rate and rhythm
Respiratory:: Bilateral: CTA
Lung Excursion:: Normal
Abdomen:: Nontender and Soft
Extremity Edema:: None: Bilateral: (trace)
Crespo Catheter: No
[2023-11-05 16:14] LABS: Glucose - Point of Care 167 mg/dl (70-99)
[2023-11-05] MEDS: TOPROL XL 12.5 MG PO (16:33)
[2023-11-05] MEDS: CRESTOR 5 MG PO (16:34)
[2023-11-05] MEDS: PROSCAR 5 MG PO (16:34)
[2023-11-05] MEDS: COUMADIN 2 MG PO (16:34)
[2023-11-05] MEDS: NORVASC 10 MG PO (16:35)
[2023-11-05] MEDS: NOVOLOG FLEXPEN-MODERATE RESISTANCE 1 UNITS SC (16:36)
[2023-11-05 21:04] LABS: Glucose - Point of Care 200 mg/dl (70-99)
[2023-11-06 01:17] VITALS: PULSE 2; PULSE 65
[2023-11-06 04:54] VITALS: BMI 23.7
[2023-11-06 05:49] LABS: Hematocrit 27.1 % (39.0-52.0); Hemoglobin 7.8 g/dL (13.0-18.0); Mean Corp Hgb Conc. 28.8 g/dL (33.0-37.0); Mean Corpuscular Hgb 27.4 pg (27.0-31.0); Mean Corpuscular Volume 95.1 fL (80.0-94.0); Mean Platelet Volume 10.7 fL (7.4-10.4); Platelet Count 214 10^3/uL (130-400); Red Blood Cell Count 2.85 10^6/uL (4.70-6.10); Red Cell Dist. Width 23.2 % (11.5-14.5); White Blood Cell Count 24.2 10^3/uL (4.8-10.8)
[2023-11-06 05:57] LABS: INR 2.25; PT 24.8 Sec (11.4-14.6)
[2023-11-06 06:15] LABS: Calcium 7.7 mg/dl (8.4-10.2); Carbon Dioxide 23 mmol/L (22-30); Chloride 108 mmol/L (98-107); Estimated Creatinine Clearance 15 ml/min; Glucose 126 mg/dl (70-99); Potassium 4.2 mmol/L (3.5-5.1); Sodium 139 mmol/L (135-145); eGFR 15.14
[2023-11-06 06:25] LABS: Blood Urea Nitrogen 132 mg/dl (9-20)
[2023-11-06 06:52] LABS: Glucose - Point of Care 161 mg/dl (70-99)
--- NOTE | 2023-11-06 07:19 | W.PN.ONC2 ---
Today's Communication / Plan
-
Counts stable. Holding Ojjaara.
Impression
Impression
acute on chronic renal failure
h/o MPN/ myelofibrosis
CLL
Plan
Plan
Ojjaara (momelotinib) is on hold - in setting of acute illness.
No significant association with GER (not in the PI, 3% association in Up to date). Based on metabolism, can be given in setting of CKD or HD but limited data.
Outpt F/U
Subjective/Objective
Chief Complaint
ACS Heme Onc
Subjective
Doing better. No SOB. Main issue is GER which is improving. Likely will need to start HD as outpatient soon (not urgently in hospital). Ojjaara on hold inpatient.
Vital Signs:
Vital Signs
Temp Pulse Resp BP Pulse Ox
97.5 F 68 20 124/46 100
11/05/23 14:15 11/05/23 21:09 11/05/23 21:09 11/05/23 14:15 11/05/23 21:09
Lab Results:
Laboratory Data
WBC 24.2 10^3/uL (4.8-10.8) H 11/06/23 05:09
Hgb 7.8 g/dL (13.0-18.0) L 11/06/23 05:09
Plt Count 214 10^3/uL (130-400) 11/06/23 05:09
PT 24.8 Sec (11.4-14.6) H 11/06/23 05:09
INR 2.25 11/06/23 05:09
APTT 34.1 Sec (23.4-35.0) 10/27/23 06:27
eGFR 15.14 11/06/23 05:09
Physical Exam
HEENT: No Jaundice
Cardiology: S1 and S2
Pulmonary: Clear
GI: Soft
Extremities: No C/C/E
[2023-11-06] MEDS: DUONEB 3 ML INH (07:28)
[2023-11-06 07:30] VITALS: BP 142/56
[2023-11-06] MEDS: LANTUS 0.149999999999999994 UNITS SC (08:29)
[2023-11-06] MEDS: NOVOLOG FLEXPEN-MODERATE RESISTANCE 1 UNITS SC ×2 (08:29→12:06)
[2023-11-06] MEDS: ULORIC 40 MG PO (08:30)
[2023-11-06] MEDS: NOVOLOG FLEXPEN 15 UNITS SC ×2 (08:30→12:06)
[2023-11-06] MEDS: NITRO-DUR 0.599999999999999978 MG TRANSDERM (08:31)
[2023-11-06] MEDS: PACERONE 200 MG PO (08:31)
[2023-11-06] MEDS: SODIUM BICARBONATE 650 MG PO (08:31)
[2023-11-06] MEDS: MUCINEX 600 MG PO (08:31)
[2023-11-06] MEDS: ASPIR LOW (ENTERIC COATED) 81 MG PO (08:31)
[2023-11-06] MEDS: FIRVANQ 125 MG PO (08:33)
[2023-11-06] MEDS: FLUSH (NSS) 1 FLUSH IV (08:34)
[2023-11-06] MEDS: NOVOLOG FLEXPEN SC (08:35)
--- NOTE | 2023-11-06 10:04 | W.PN.PUL.V3 ---
Today's Communication / Plan
-
Oxygen weaned
Increase activity
Decadron wean
Outpatient pulmonary follow-up
Assessment
-
Assessment: 83-year-old male former tobacco smoker with past medical history of asthma/COPD, gout, CLL, history of PCV, mild restrictive lung disease, ABELARDO, HFpEF, A-fib s/p multiple DCCV on chronic amiodarone and warfarin, CAD with history of CA s/p
coronary stents and myelofibrosis who presents with low oxygen level. 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 He also endorses SOB over the last several
days with activity. In triage she was saturating 87% on room air, BP 135/62, pulse rate 66 and respiratory rate 18. He was afebrile to 98 �F. Of note he was recently hospitalized here from 09/22 � 09/27/2023 due to C. difficile colitis with GER.
Labs showed Hb 8.1, platelet 4 3, INR 3.79, proBNP 26,300, and TSH 4.93. COVID antigen was negative. Blood cultures were collected. CXR showed bilateral airspace/interstitial infiltrates suspicious for diffuse pneumonia. He was given a DuoNeb
treatment in the ER. He was initially admitted to the IMU, however due to worsening respiratory distress he was transferred to the ICU, started on BiPAP and now hide paster consulted for additional management/recommendations.
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
IVIG, history of gout, BPH
Impression:
#Acute respiratory failure with hypoxia on supplemental oxygen
#Bilateral infiltrates
#Acute on chronic anemia
#Elevated troponin � peaked at 0.144 on 10/25/2023
#Recent CDI on PO vanc
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
#HTN
#Hx of asthma/copd not in an acute exacerbation
#Hx of ABELARDO on auto-BiPAP
#History of bronchiectasis on vest therapy at home
Plan:
Pulmonary status continues to improve
Oxygenation improved as well as recovery after exertion-now on room air
Check rest and exercise oximetry
BiPAP 12/5 cm with supplemental oxygen continues-tolerating well
Incentive spirometry
Vest therapy will continue
Mucus clearing devices
Follow chest x-ray-11/03/2023-significant interval improvement suggesting improved pneumonia
Decadron 3 mg orally continues-decrease to 2 mg orally daily with slow taper-note the patient reports having a reaction to prednisone in the past-slow reduction.
He reported Prednisone reaction is leg swelling and hyperglycemia-he has used prednisone multiple times without severe adverse reactions
Aspiration precautions
Cultures reviewed
Follow leukocytosis
Completed course of Zosyn
Momelotinib - on hold rule out drug-induced pneumonitis-on the steroids as above.
Zosyn continues
Vancomycin orally continues
Patient also on amiodarone 200 mg daily-this dose usually does not cause pulmonary toxicity
Continue to follow hemoglobin.
Transfuse as needed..
Nephrology following-correspondence reviewed
Lasix held
They have discussed dialysis-patient leaning towards excepting dialysis if needed
Follow blood sugar
Insulin supplementation as needed
DVT prophylaxis-on warfarin
Outpatient pulmonary [id number] states she follows up at [facility] -Dr. Parson told to obtain films on disc to bring to his next appointment
Patient usually follows up with Dr. Camara.

Data:
CXR 10-25-2023: Bilateral reticular and airspace opacities as above most likely related to pneumonia, without significant change. Very small bilateral effusions.
CXR 10-24-2023: The heart size is within the limits of normal; There are bilateral airspace and interstitial infiltrates, right greater than left, consistent with diffuse pneumonia. Regional skeleton intact.
TTE 10-25-2023:
Normal left ventricular wall thickness.
Normal left ventricular chamber size.
Mildly reduced left ventricular systolic function.
Left ventricular ejection fraction is 44% by Anaya's method.
Global hypokinesis, more prominent in the mid and basal segments of the
anterolateral wall.
Normal right ventricular size and function.
Mitral valve opens normally.
Mild to moderate mitral regurgitation.
Trace to mild aortic regurgitation.
Mild tricuspid regurgitation.
The IVC is of normal size and demonstrates normal respiratory variation.
Normal pericardium without effusion.
No significant change noted from 09/2023
Subjective Data
-
Date of Service:
Date of Service: November 06, 2023
Chief Complaint: Pulmonary Follow Up and Dyspnea Follow Up
Subjective:
Feels much better, less short of breath, now on room air, no chest pain, productive cough or abdominal pain
Review of Systems
General: Other (Per HPI)
Objective Data
Data Reviewed
Vital Signs / I&O:
Vital Signs
Temp Pulse Resp BP Pulse Ox
97.3 F 72 18 142/56 100
11/06/23 07:30 11/06/23 08:20 11/06/23 08:20 11/06/23 07:30 11/06/23 08:20
Intake and Output
11/05/23 11/06/23 11/07/23
06:59 06:59 06:59
Intake Total 1050 / 1050 780 / 780
Output Total 650 / 650 1070 / 1070
Balance 400 / 400 -290 / -290
SaO2: 100
Nasal Cannula flow liters per minute: 2
Physical Exam
General: Respiratory Distress (Negative) and Comfortable
HEENT: Normocephalic, Anicteric and Moist Mucous Membranes
Cardiovascular: Peripheral Edema (Negative) and Other (Normal rate)
Respiratory: Wheeze (Negative), Crackles (Minimal at the bases-much improved), Rhonchi (Negative) and Non-Labored Respirations
GI: Soft, Non Distended, Non Tender and Normal Bowel Sounds
Neurology: Awake, Alert and Tremors (Negative)
Skin: Warm, Good Color, Cyanosis (Negative), Jaundice (n) and Rash (n)
Labs/Micro/Reports
Lab Data
11/06/23 05:09
11/06/23 05:09
Laboratory Results
11/06/23
05:09
PT 24.8 H
INR 2.25
--- NOTE | 2023-11-06 11:00 | W.PN.HOSP.TC ---
Addendum entered and electronically signed by Esvin Kerr MD 11/06/23 15:42:
[id number]
Original Note:
Today's Communication/Plan
-
decadron taper
holding diuretics, f/u bmp closely on tuesday 11/07
monitor WBC - most likely 2/2 to steroids- f/u cbc on 11/07
F/u INR oupatient
F/u Hematology, PCP, Pulmonary, Nephrology outpatient
Assessment / Plan
Assessment / Plan
Gen: remains NAD, awake and alert, appears chronically ill
Eyes: EOMI, PERRLA, no scleral icterus.
Neck: supple.
CV: remains irreg/irreg, +S1/S2, no m/r/g.
Resp: CTAB anteriorly, no rales, wheezes, or rhonchi.
Abd: +BS, soft, NT, ND
Skin: No rashes. Ecchymoses on UEs.
Neuro: remains CN 2-12 intact, non-focal.
Psych: Normal mood and affect.
10/24/23 18:26 Blood/Venous Blood Culture - Final
No Growth - Final Report
10/24/23 18:26 Blood/Venous Blood Culture - Final
No Growth - Final Report
10/24/23 18:26 Nose MRSA Screen - Final
No Methicillin Resistant Staphylococcus aureus isolated.
10/24/23 18:26 Urine Legionella Urinary Antigen - Final
Negative for Legionella pneumophila Serogroup 1 antigen.
A negative result does not rule out the possiblity of
Legionella infection due to other serogroups or species of
Legionella. Clinical correlation is recommended.
10/24/23 18:26 Urine Streptococcus pneumoniae Antigen (M - Final
Negative for Streptococcus pneumoniae antigen.
A negative result does not exclude infection with
Streptococcus pneumoniae. Clinical correlation is
recommended.
10/24/23 18:26 Nasal Swab Influenza Types A & B (YOBANY) - Final
Negative for Influenza A & B, NAAT
Negative results must be combined with clinical observations
and patient history.
Nucleic Acid Amplification test (NAAT)performed on the
[employer] NOW platform.
CXR 10/25/23: Bilateral reticular and airspace opacities as above most likely related to pneumonia, without significant change. Very small bilateral effusions.
Echo: Normal left ventricular wall thickness.
Normal left ventricular chamber size.
Mildly reduced left ventricular systolic function.
Left ventricular ejection fraction is 44% by Anaya's method.
Global hypokinesis, more prominent in the mid and basal segments of the
anterolateral wall.
Normal right ventricular size and function.
Mitral valve opens normally.
Mild to moderate mitral regurgitation.
Trace to mild aortic regurgitation.
Mild tricuspid regurgitation.
The IVC is of normal size and demonstrates normal respiratory variation.
Normal pericardium without effusion.
No significant change noted from 09/2023
Renal U/S:
1. Negative for hydronephrosis. There is increased renal cortical echogenicity, nonspecific but may be seen in association with medical renal disease.
2. Small benign left renal cysts as seen prior. Probable subcentimeter calculus at the left lower pole.
3. Limited evaluation of the urinary bladder as above. Post void residual of 21 mL.
Acute Hypoxic respiratory failure:
-due to pneumonia +/- Interstitial Pneumonitis in setting of Momelotinib (now off)
-sepsis due to PNA
-PE unlikely as patient on Coumadin and supratherapeutic
-was on high flow, now weaned to 2L
-all Cxs NG as above
-COVID/Flu negative
-strep/Legionella Ags negative
-MRSA screen NEG, IV Vanco stopped
-completed a course of Zosyn
-cont Decadron (weaned to 2mg IV Q12H). Transitioned to decadron taper due to prednisone allergy; decadron 2mg x 3 more days, then 1mg x 3 days, then off
-Wean o2 as tolerated; Goal o2> 90%; off O2 - on Room air now
-Incentive Spirometry, early ambulation
-Significant leukocytosis, a component of which is likely steroid-induced (also CLL and myelofibrosis)
-afebrile
#Leukocytosis
-most likely related to steroids at this time
-cbc outpatient on 11/07
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
-slowly trending down
-AIN vs CRS
-Cont sodium bicarb
-renal U/S above, no hydro
-renal following. Pt is deciding on whether or not he would want hemodialysis if needed.
-holding lasix, SGLT2-i
-f/u bmp on 11/07
-HD as per renal - discussion outpatient
Chronic HFrEF:
-Echo above and without significant change from September 2023
-I/Os, daily wts (stable)
-cont BB
-home lasix on hold
#Hypokalemia
-monitor and replete
Steroid-induced hyperglycemia:
-a1c 5.2% on 10/03/23
-diabetes MAILING CLERK following
-cont Lantus 15U, premeal Novolog 12U
-SSI/accuchecks
Other problems:
Acute nonischemic myocardial injury likely due to pneumonia/sepsis
h/o CLL/myelofibrosis: was on Momelotinib [employer]AP BU[employer]. Onc to see, case discussed with Dr. Mccall. Hold momelotinib - f/u heme outpatient
Anemia of chronic disease: Continue iron sulfate. Transfuse for Hb < 7
Paroxysmal atrial fibrillation: with supratherapeutic INR, s/p Vit K, Cont Amio. cont coumadin (2mg tonight). F/u INR outpatient
CAD: h/o stents, cont ASA/statin/BB
COPD: cont Pulmicort/DuoNebs
Essential hypertension: Cont BB/Norvasc
Hypercholesterolemia: cont statin
Recent C. difficile colitis: Continue oral vancomycin - Cont steroid taper
BPH: Continue finasteride
Full-thickness coccyx/perineal ulcer, likely healing PI stage 3
FULL/coumadin
More than 30 minutes spent in discharge including
Final examination of the patient
Summarizing hospital stay
Instructions for continuing care to all relevant caregivers
Preparation of discharge records, prescriptions, and referral forms
Total time spent (35 in minutes):
Anticipated Discharge: Today
Subjective/Interval History
-
Date of Service: November 06, 2023
Weaned off oxygen
Objective Data
-
Labs:
Laboratory Results
11/06/23
05:09
WBC 24.2 H
Hgb 7.8 L
Hct 27.1 L
Plt Count 214
PT 24.8 H
INR 2.25
Sodium 139
Potassium 4.2
Chloride 108 H
Carbon Dioxide 23
BUN 132 H*
Creatinine 3.8 H
Glucose 126 H
Calcium 7.7 L
Vital Signs:
Vital Signs
Temp Pulse Resp BP Pulse Ox
97.3 F 72 18 142/56 100
11/06/23 07:30 11/06/23 08:20 11/06/23 08:20 11/06/23 07:30 11/06/23 10:04
I&O
11/05/23 11/06/23 11/07/23
06:59 06:59 06:59
Intake Total 1050 / 1050 780 / 780
Output Total 650 / 650 1070 / 1070
Balance 400 / 400 -290 / -290
Review of Systems
-
History Source: Patient
All other systems: Not reviewed unless documented
Physical Exam
-
General: No Apparent Distress
HEENT: Normocephalic and Atraumatic
Respiratory: Negative Wheezes
Cardiac: Regular Rhythm and S1/S2
GI: Soft
Genito-urinary: No Costovertebral Tender
Neuro: AO x 3
Hematologic / Lymphatic: No Lymphadenopathy
Psych: Calm
Data Reviewed
-
Diagnostic Radiology: Image personally visualized and interpreted and Report Reviewed by me
[2023-11-06 11:21] LABS: Glucose - Point of Care 175 mg/dl (70-99)
--- NOTE | 2023-11-06 11:34 | W.DS.TRANS ---
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
-
Discharge Instructions:
Discharge Diagnosis/Procedures Acute Hypoxic respiratory failure: -due to
pneumonia +/- Interstitial Pneumonitis
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
Diet Low Cholesterol,Low Fat,Diabetic, Carb
Controlled
Activity As tolerated
Blood Work INR, CBC, and BMP with PCP and Nephrology on 11/07
Instructions:
Stand-Alone Forms:
Changes to Home Medications: Yes
Discharge Medications:
DC Medications w/original date entered in [employer]
rosuvastatin 5 mg tablet 5 mg PO QPM High Cholesterol 07/09/19
febuxostat 40 mg tablet 40 mg PO DAILY uric acid 04/29/23
ferrous sulfate 325 mg (65 mg iron) tablet 325 mg PO Q48H@1800 Supplement ##0 04/29/23
finasteride 5 mg tablet 5 mg PO QPM BPH 04/29/23
nitroglycerin 0.6 mg/hr transdermal 24 hour patch (Nitro-Dur) 1 patch transdermal DAILY Heart Disease/Condition ##0 04/29/23
amiodarone 200 mg tablet 200 mg PO DAILY #30 tabs 06/13/23
aspirin 81 mg tablet,delayed release 81 mg PO DAILY Blood Clot Prevention/Tx 06/20/23
metoprolol succinate 25 mg tablet,extended release 24 hr 12.5 mg PO QPM Heart Disease/Condition 06/20/23
guaifenesin 600 mg tablet, extended release 12 hr 600 mg PO BID Neurological Condition 09/01/23
Aranesp 1 dose SC Q3W anemia 09/23/23
amlodipine 10 mg tablet 10 mg PO QPM Blood Pressure 09/23/23
budesonide 0.5 mg/2 mL suspension for nebulization 0.5 mg inhalation R BIDPRN PRN sob 09/23/23
ipratropium 0.5 mg-albuterol 3 mg (2.5 mg base)/3 mL nebulization soln 3 ml inhalation R BIDPRN PRN sob 09/23/23
vancomycin 125 mg capsule 125 mg PO DIRECTED #90 caps 09/26/23
sodium bicarbonate 650 mg tablet 650 mg PO TID #90 tabs 09/27/23
acetaminophen 500 mg tablet (Tylenol Extra Strength) 500 mg PO DAILYPRN PRN mild pain 10/24/23
carboxymethylcellulose sodium 1 % eye liquid gel drops 1 drp BOTH EYES DAILYPRN PRN dry eyes 10/24/23
dapagliflozin propanediol 5 mg tablet (Farxiga) 5 mg PO DAILY Diabetes 10/24/23
momelotinib 200 mg tablet (Ojjaara) 200 mg PO QPM Myelofibrosis 10/24/23
dexamethasone 1 mg tablet See Rx Instructions .Route .COMPLEX #10 tabs 11/06/23
insulin glargine 100 unit/mL (3 mL) subcutaneous pen (Lantus Solostar U-100 Insulin) 15 unit (0.15 mL) SC HS #5 ea 11/06/23
insulin lispro 100 unit/mL subcutaneous pen (Humalog KwikPen (U-100) Insulin) 12 unit (0.12 mL) SC AC #5 ea 11/06/23
pen needle, diabetic 32 gauge x 532' (BD Ultra-Fine Estephania Pen Needle) #200 ea 11/06/23
warfarin 2 mg tablet (Jantoven) 2 mg PO QPM 30 days #30 tabs 11/06/23
Home Medication Changes
dexamethasone 1 mg tablet See Rx Instructions .Route .COMPLEX #10 tabs 11/06/23
insulin glargine 100 unit/mL (3 mL) subcutaneous pen (Lantus Solostar U-100 Insulin) 15 unit (0.15 mL) SC HS #5 ea 11/06/23
insulin lispro 100 unit/mL subcutaneous pen (Humalog KwikPen (U-100) Insulin) 12 unit (0.12 mL) SC AC #5 ea 11/06/23
pen needle, diabetic 32 gauge x 5/32' (BD Ultra-Fine Estephania Pen Needle) #200 ea 11/06/23
warfarin 2 mg tablet (Jantoven) 2 mg PO QPM 30 days #30 tabs 11/06/23
Pending Results: No
[2023-11-06] MEDS: DECADRON 2 MG PO (12:20)
--- NOTE | 2023-11-06 12:37 | W.PN.NEPH.PH ---
Today's Communication / Plan
-
dc
Assessment/Plan
-
Assessment:
GER on CKD (bl 2.5-3.1), follows with Dr. Emery
acute hypoxic respiratory failure
PNA
HFrEF
Hyperglycemia
BPH
Afib
Plan:
for dc
f/u BMP next week
has OP appt in our office already
steroid wean
-
-
Date of Service: November 06, 2023
CC / HPI / ROS
-
Chief Complaint:
GER
History of Present Illness:
GER/Cr better at 3.8
BUN improving
Hgb stable low 7.8
WBC high stable on steroids
Review of Systems:
no CP/SOB at rest
non oliguric
Labs
-
Labs:
WBC 24.2 10^3/uL (4.8-10.8) H 11/06/23 05:09
RBC 2.85 10^6/uL (4.70-6.10) L 11/06/23 05:09
Hgb 7.8 g/dL (13.0-18.0) L 11/06/23 05:09
Hct 27.1 % (39.0-52.0) L 11/06/23 05:09
Plt Count 214 10^3/uL (130-400) 11/06/23 05:09
Sodium 139 mmol/L (135-145) 11/06/23 05:09
Potassium 4.2 mmol/L (3.5-5.1) 11/06/23 05:09
Chloride 108 mmol/L (98-107) H 11/06/23 05:09
Carbon Dioxide 23 mmol/L (22-30) 11/06/23 05:09
BUN 132 mg/dl (9-20) H* 11/06/23 05:09
Creatinine 3.8 mg/dL (0.7-1.3) H 11/06/23 05:09
eGFR 15.14 11/06/23 05:09
Glucose 126 mg/dl (70-99) H 11/06/23 05:09
Calcium 7.7 mg/dl (8.4-10.2) L 11/06/23 05:09
Phosphorus 4.9 mg/dl (2.5-4.5) H 10/27/23 06:27
Oat-A-Gkcjexponyz Pept 15593 pg/ml 10/28/23 05:13
Albumin 3.0 g/dl (3.5-5.0) L 10/31/23 07:19
Physical Exam
-
Vital Signs:
Vital Signs
Temp Pulse Resp BP Pulse Ox
97.3 F 72 18 142/56 100
11/06/23 07:30 11/06/23 08:20 11/06/23 08:20 11/06/23 07:30 11/06/23 10:04
Cardiovascular:: Regular rate and rhythm
Respiratory:: Bilateral: Coarse
Lung Excursion:: Normal
Abdomen:: Nontender and Soft
Bowel Sounds:: Normal
Extremity Edema:: None: Bilateral:
[2023-11-06 13:40] VITALS: BP 128/55
--- NOTE | 2023-11-06 14:09 | CM ---
MD entered order for dc.
PT saw pt today , Recommenced VN .
Offered VN to pt he declined.
He said he was ready for dc.
IMM letter given explained and pt signed on chart.
On room air. Home oxygen test done and he is good on room air.
Pt spoke of needing HD in future.
PLAN Home no needs
--- NOTE | 2023-11-09 13:46 | CM ---
TC from patient 11/09/23 requesting VN for RN and PT.
Order placed, referral placed for [facility].
== END 2023-11-06 13:59 | disposition home or self-care (01) | DRG 871 ==
LOC: 4 EAST ACU 18:57
PROVIDERS: Internal Medicine; Nurse Practitioner Gerontology; Nurse Practitioner Primary Care; Specialist; ADMITTING PHYSICIAN Hospitalist; ATTENDING PHYSICIAN Internal Medicine; CONSULT PHYSICIAN Internal Medicine Hematology & Oncology; CONSULT PHYSICIAN Student in an Organized Health Care Education/Training Program; EMERGENCY PHYSICIAN Emergency Medicine; FAMILY PHYSICIAN Family Medicine; OTHER PHYSICIAN Internal Medicine Critical Care Medicine
PROC: 5A09357 Assistance with Respiratory Ventilation, Less than 24 Consecutive Hours, Continuous Positive Airway Pressure (ICD-10-PCS; 2023-10-25)
DX: A41.9 Sepsis, unspecified organism (principal); I50.23 Acute on chronic systolic (congestive) heart failure; L89.153 Pressure ulcer of sacral region, stage 3; J96.01 Acute respiratory failure with hypoxia; J18.9 Pneumonia, unspecified organism; C91.10 Chronic lymphocytic leukemia of B-cell type not having achieved remission; N18.4 Chronic kidney disease, stage 4 (severe); I13.0 Hypertensive heart and chronic kidney disease with heart failure and stage 1 through stage 4 chronic kidney disease, or unspecified chronic kidney disease; J44.0 Chronic obstructive pulmonary disease with (acute) lower respiratory infection; N17.9 Acute kidney failure, unspecified; D75.81 Myelofibrosis; I5A Non-ischemic myocardial injury (non-traumatic); D84.9 Immunodeficiency, unspecified; J98.11 Atelectasis; D63.8 Anemia in other chronic diseases classified elsewhere; E11.22 Type 2 diabetes mellitus with diabetic chronic kidney disease; N40.0 Benign prostatic hyperplasia without lower urinary tract symptoms; E78.00 Pure hypercholesterolemia, unspecified; I25.10 Atherosclerotic heart disease of native coronary artery without angina pectoris; J84.89 Other specified interstitial pulmonary diseases; I34.0 Nonrheumatic mitral (valve) insufficiency; E87.6 Hypokalemia; I48.0 Paroxysmal atrial fibrillation; G47.33 Obstructive sleep apnea (adult) (pediatric); E11.65 Type 2 diabetes mellitus with hyperglycemia; Z87.891 Personal history of nicotine dependence; Z95.5 Presence of coronary angioplasty implant and graft; Z82.49 Family history of ischemic heart disease and other diseases of the circulatory system; I25.2 Old myocardial infarction; Z87.01 Personal history of pneumonia (recurrent); Z88.8 Allergy status to other drugs, medicaments and biological substances; Z11.52 Encounter for screening for COVID-19; Z91.148 Patient's other noncompliance with medication regimen for other reason
CPT/HCPCS: 93308; 36415; 36600; 71045; 76770; 80048; 80053; 80202; 81003; 81015; 81099; 82570; 82728; 82805; 82947; 82962; 83540; 83550; 83735; 83880; 84100; 84156; 84300; 84439; 84443; 84484; 85025; 85027; 85379; 85610; 85730; 86140; 86850; 86900; 86901; 87040; 87070; 87449; 87502; 87811; 87899; 93005; 93321; 93325; 93970; 94640; 94660; 94669; 97116; 97162; 97530; 99285

== ENCOUNTER 2023-11-11 02:59 | Inpatient (IN) | payer MEDICARE, SELFPAY ==
[2023-11-10 23:34] VITALS: BP 126/45
--- NOTE | 2023-11-10 23:34 | ED.GENMED ---
History of Present Illness
<PADMA Walsh - Last Filed: 11/11/23 01:32>
General
Chief Complaint: Breathing Problem
Source: patient
Exam Limitations: none
Time Seen by Provider: 11/10/23 23:33
Nursing documentation reviewed up to this point in time: agreed with
Travel History
Have you had any contact with someone who has COVID-19?: No
Do you have any symptoms of coronavirus? Fever > 100 degrees, chills, cough, shortness of breath, sore throat, loss of taste or smell, muscle aches, or headache?: No
History of Present Illness
History of Present Illness:
Patient is a 83-year-old male with past medical history of CLL myelofibrosis A-fib (on amiodarone and warfarin ) [place] COPD CHF hyperlipidemia cardioversions who presents to the ER via EMS for shortness of breath. This shortness of breath started
today. He was recently admitted to the hospital for several weeks and discharged 1 week ago. He used his inhalers and nebs today without relief. Patient as per EMS was very short of breath and hypoxic at home and was given 1 albuterol nebulizer.
Patient presented on nonrebreather.
Patient was admitted October 23 and discharged November 05 with acute respiratory failure due to pneumonia and interstitial pneumonitis. He does have a history of chronic kidney disease stage IV and had acute kidney injury during this admission and was sent
home with instructions to hold Lasix. Patient had no evidence of heart failure during discharge.
He does have newer l/e swelling as per .
Past History
<PADMA Walsh - Last Filed: 11/11/23 01:32>
Past History
ED Past Medical History: Arrthythmia (Atrial fibrillation), CAD, Cancer (CLL ( Lymphocytic Leukemia)), COPD, HTN, Hypercholesterolemia, NIDDM, [place], Renal failure and Other (Anemia, PNA, Hernia, Bleeding gums, PNA)
ED Past Surgical History: Cardiac (Stents X2)
Social History
Tobacco: Former smoker
Alcohol: None
Drug: None
Personal:
Living: with family
Employment: Not employed
Family History
Family History: CAD
Review of Systems
<PADMA Walsh - Last Filed: 11/11/23 01:32>
Review of Systems
Allergies reviewed?: Yes
All Other Systems: ROS reviewed and negative except as documented in HPI and ROS
Constitutional: Denies fever, fatigue or chills
EENT: Reports no symptoms
Respiratory: Reports trouble breathing
Phy Exam
<PADMA Walsh - Last Filed: 11/11/23 01:32>
General Physical Exam
General Presentation: mild distress
General age: appears older than age
General Skin: warm and dry
General Habitus: elderly
General Mental: alert
General Hydration: appears well hydrated
Cardiovascular Exam
Cardiovascular Exam: bradycardia
Pulmonary Exam
Pulmonary Exam: no respiratory distress and other (crackles throughout with exp wheezing )
Neurological Exam
Neurological Exam: alert and oriented x3
Musculoskeletal Exam
Musculoskeletal Exam: full ROM and other ( + l/e swelling )
Skin Exam
Skin Exam: normal color and warm/dry
Psychiatric Exam
Psychiatric Exam: normal mood/affect
Scores
<PADMA Walsh - Last Filed: 11/11/23 01:32>
Heart Failure Risk
Heart Failure Risk Score: Not Applicable
Course
<PADMA Walsh - Last Filed: 11/11/23 01:32>
Orders/Labs/Results
Orders:
Orders
11/10/23 23:33
Portable Chest Xray [CR Chest Portable - 1 View] Urgent
Comment:
Reason For Exam: sob
Reason Study Needs to be Portable: Unable to Transport
11/10/23 23:37
Albuterol Nebs [Ventolin Nebules] 2.5 mg INH R NOW STA
11/10/23 23:40
Electrocardiogram (*1) Stat
Reason for Study: Other
Other Reason for Exam: chest pain
Cardiac Monitoring- Treatment ONCE
EKG- Treatment ONCE
11/10/23 23:47
Complete Blood Count/With Diff Urgent
Comprehensive Metabolic Panel Urgent
Lactic Acid Q4H
Comment: CANCEL 2nd LACTIC ACID IF 1st LACTIC ACID IS LESS THAN 2
Pro-BNP [NT-proBNP] Urgent
Troponin I Urgent
Blood Culture Q30M
GERALD Source: Blood/Venous
Specimen Description:
11/11/23 00:10
* Blood Bank Products Urgent
's Orders: Raulito
Blood Bank Products: *Packed RBC Leuko(PRBC's)
Quantity: 1
Transfuse Today: Yes
Reason: Anemia
IV Insert/Care/Rem.- Treatment PRN
11/11/23 00:12
Vancomycin 1 Gram/200 ml [Vancocin] 1 gram in 200 ml IV NOW
11/11/23 00:13
Piperacillin/Tazo 3.375 Gram [Zosyn] 3.375 gram in 50 ml IV NOW
11/11/23 00:17
Type+Screen Urgent
PT/INR [Prothrombin Time] Urgent
Blood Culture Q30M
GERALD Source: Blood/Venous
Specimen Description:
11/11/23 03:45
Lactic Acid Q4H
Comment: CANCEL 2nd LACTIC ACID IF 1st LACTIC ACID IS LESS THAN 2
Abnormal Lab Results
11/10/23 11/11/23
23:47 00:17
WBC 22.4 H 10^3/uL
(4.8-10.8)
RBC 2.31 L 10^6/uL
(4.70-6.10)
Hgb 6.4 L* g/dL
(13.0-18.0)
Hct 21.3 L %
(39.0-52.0)
MCHC 30.0 L g/dL
(33.0-37.0)
RDW 24.2 H %
(11.5-14.5)
Abs Immat Gran (auto) 0.5 H 10^3/uL
(0-0.05)
Absolute Neuts (auto) 20.9 H 10^3/uL
(1.4-6.5)
Absolute Lymphs (auto) 0.5 L 10^3/uL
(1.2-3.4)
Immature Gran % 2.3 H %
(0-0.5)
Neutrophils % 93.2 H %
(42.2-75.2)
Lymphocytes % 2.4 L %
(20.5-51.1)
PT 28.3 H Sec
(11.4-14.6)
Chloride 113 H mmol/L
(98-107)
Carbon Dioxide 19 L mmol/L
(22-30)
BUN 126 H* mg/dl
(9-20)
Creatinine 3.8 H mg/dL
(0.7-1.3)
Glucose 209 H mg/dl
(70-99)
Lactic Acid 2.4 H mmol/L
(0.7-2.0)
Calcium 8.1 L mg/dl
(8.4-10.2)
Total Protein 4.8 L g/dl
(6.3-8.2)
Albumin 2.9 L g/dl
(3.5-5.0)
11/10/23 23:47
11/10/23 23:47
Vital Signs
Initial and Last Documented VS:
Initial Vital Signs
Temp Pulse Resp BP Pulse Ox
97.4 F 63 24 126/45 96
11/10/23 23:34 11/10/23 23:34 11/10/23 23:34 11/10/23 23:34 11/10/23 23:34
Last Documented Vital Signs
Temp Pulse Resp BP Pulse Ox
97.4 F 61 21 124/45 92
11/10/23 23:34 11/11/23 01:00 11/11/23 01:00 11/11/23 01:00 11/11/23 01:00
Parts Counter Associate consulted with Physician
Parts Counter Associate consulted with physician?: Yes
Name of Physician Consulted: Raulito
<Tank Cabezas, DO - Last Filed: 11/11/23 00:14>
Orders/Labs/Results
Orders:
Orders
11/10/23 23:33
Portable Chest Xray [CR Chest Portable - 1 View] Urgent
Comment:
Reason For Exam: sob
Reason Study Needs to be Portable: Unable to Transport
11/10/23 23:37
Albuterol Nebs [Ventolin Nebules] 2.5 mg INH R NOW STA
11/10/23 23:40
Electrocardiogram (*1) Stat
Reason for Study: Other
Other Reason for Exam: chest pain
Cardiac Monitoring- Treatment ONCE
EKG- Treatment ONCE
11/10/23 23:47
Complete Blood Count/With Diff Urgent
Comprehensive Metabolic Panel Urgent
Lactic Acid Q4H
Comment: CANCEL 2nd LACTIC ACID IF 1st LACTIC ACID IS LESS THAN 2
Pro-BNP [NT-proBNP] Urgent
Troponin I Urgent
Blood Culture Q30M
GERALD Source: Blood/Venous
Specimen Description:
11/11/23 00:10
* Blood Bank Products Urgent
's Orders: Raulito
Blood Bank Products: *Packed RBC Leuko(PRBC's)
Quantity: 1
Transfuse Today: Yes
Reason: Anemia
IV Insert/Care/Rem.- Treatment PRN
11/11/23 00:12
Vancomycin 1 Gram/200 ml [Vancocin] 1 gram in 200 ml IV NOW
11/11/23 00:13
Piperacillin/Tazo 3.375 Gram [Zosyn] 3.375 gram in 50 ml IV NOW
11/11/23 00:17
Type+Screen Urgent
PT/INR [Prothrombin Time] Urgent
Blood Culture Q30M
GERALD Source: Blood/Venous
Specimen Description:
11/11/23 03:45
Lactic Acid Q4H
Comment: CANCEL 2nd LACTIC ACID IF 1st LACTIC ACID IS LESS THAN 2
Abnormal Lab Results
11/10/23 11/11/23
23:47 00:17
WBC 22.4 H 10^3/uL
(4.8-10.8)
RBC 2.31 L 10^6/uL
(4.70-6.10)
Hgb 6.4 L* g/dL
(13.0-18.0)
Hct 21.3 L %
(39.0-52.0)
MCHC 30.0 L g/dL
(33.0-37.0)
RDW 24.2 H %
(11.5-14.5)
Abs Immat Gran (auto) 0.5 H 10^3/uL
(0-0.05)
Absolute Neuts (auto) 20.9 H 10^3/uL
(1.4-6.5)
Absolute Lymphs (auto) 0.5 L 10^3/uL
(1.2-3.4)
Immature Gran % 2.3 H %
(0-0.5)
Neutrophils % 93.2 H %
(42.2-75.2)
Lymphocytes % 2.4 L %
(20.5-51.1)
PT 28.3 H Sec
(11.4-14.6)
Chloride 113 H mmol/L
(98-107)
Carbon Dioxide 19 L mmol/L
(22-30)
BUN 126 H* mg/dl
(9-20)
Creatinine 3.8 H mg/dL
(0.7-1.3)
Glucose 209 H mg/dl
(70-99)
Lactic Acid 2.4 H mmol/L
(0.7-2.0)
Calcium 8.1 L mg/dl
(8.4-10.2)
Total Protein 4.8 L g/dl
(6.3-8.2)
Albumin 2.9 L g/dl
(3.5-5.0)
11/10/23 23:47
11/10/23 23:47
Vital Signs
Initial and Last Documented VS:
Initial Vital Signs
Temp Pulse Resp BP Pulse Ox
97.4 F 63 24 126/45 96
11/10/23 23:34 11/10/23 23:34 11/10/23 23:34 11/10/23 23:34 11/10/23 23:34
Last Documented Vital Signs
Temp Pulse Resp BP Pulse Ox
97.4 F 61 21 124/45 92
11/10/23 23:34 11/11/23 01:00 11/11/23 01:00 11/11/23 01:00 11/11/23 01:00
<PADMA Walsh - Last Filed: 11/11/23 01:32>
MDM/Problems Addressed
Differential Diagnosis Includes:
not limited to: Pneumonia, CHF, anemia
MDM/Problems Addressed:
Patient is an 83-year-old male who presents for shortness of breath today. Patient was just discharged from the hospital less than a week ago for hypoxic respiratory failure pneumonia and interstitial pneumonitis. Patient also has a history of
chronic kidney disease and had acute kidney injury at that time. His Lasix was stopped. Patient has had leukocytosis which was likely from his steroids. Patient presents awake alert hypoxic slight expiratory wheezing and crackles throughout.
Patient does have lower extremity swelling. X-ray concerning for infiltrates on right lung. eval by ED physician . Will treat for congestive heart failure with Lasix give antibiotics. Patient also found to be anemic with a HGB of 6.4 (was 7.8
on discharge November 05) Pt is on Coumadin denies any dark or black stools. No history of GI bleed. Pt consented for blood.
Will admit to the hospitalist service.
<PADMA Walsh - Last Filed: 11/11/23 01:32>
*Radiology
Radiology exam reviewed: preliminary read by ED provider (pneumonia )
*Pulse Oximetry
Patient hypoxic: yes
*EKG
Interpreted by ED Provider?: Yes
Heart Rate: 59
Rate: bradycardiac
Rhythm: sinus
Ischemia: no ischemia
<Tank Cabezas DO - Last Filed: 11/11/23 00:14>
*Critical Care Note
Total Time (30-74mins, 75-104mins- exclusive of procedures): 33 min
comment:
The high probability of a clinically significant, sudden or life threatening deterioration of the cardiopulmonary system(s) required my full and direct attention, intervention and personal management. The aggregate critical care time was 33 minutes.
This time is in addition to time spent performing reported procedures but includes the following:
[x] Data Review and interpretation
[x] Patient assessment and monitoring of vital signs
[x] Documentation
[x] Medication orders and management
ED Attending Note
<PADMA Walsh - Last Filed: 11/11/23 01:32>
-
Portions of this chart may have been created with voice recognition software.� Occasional wrong word or��sound alike� substitutions may have occurred due to the inherent limitations of voice recognition software.
<Tank Cabezas, DO - Last Filed: 11/11/23 00:14>
ED Attending Note
Patient seen and examined by attending physician: Yes
I performed the substantive portion of visit, reviewed & personally made and approve the management plan that is documented in note by myself or YAEL.: Yes
ED Attending Note:
I have seen and evaluated the patient with a [id number] encounter. I have spoken to the advance practicer provider and involved in the medical history, the physical exam, medical decision making.
Evaluation and management service: agree unless noted differently below.
Results interpretation: agree unless noted differently below.
Focused HPI: 83-year-old male presenting with significant shortness of breath. Patient has a history of myelofibrosis and CLL. He presents with worsening shortness of breath. He was recently admitted for pneumonia and CHF exacerbation. His Lasix
was recently discontinued due to acute kidney injury
Physical exam: Uncomfortable, conversational dyspnea, crackles and rales at bases. Pitting edema bilateral lower extremities. at bedside states legs are more swollen than normal
Medical Decision Making: Patient found to be anemic. This is likely related to his chronic kidney disease. Will give packed red blood cells slowly while giving Lasix. Chest x-ray concerning for pulmonary edema and multifocal pneumonia. Will
restart IV antibiotics and admit patient with his respiratory distress, symptomatic anemia and hypoxia
Discharge Plan
Departure
Patient Disposition: Admit
Date of Disposition: 11/11/23
Time of Disposition: 01:29
Admit to: Med/Surg
Presentation/result/management discussed w/ accepting MD/DO: Hospitalist
Patient with high blood pressure during this ER visit?: No
Condition: Fair
Covid-19: Not Applicable
Discharge Problem:
Congestive heart failure (CHF), Pneumonia, Anemia
Prescriptions:
No Action
rosuvastatin 5 MG tablet
5 mg PO QPM
nitroglycerin [Nitro-Dur] 0.6 mg/hr Patch 24 Hour
1 patch TRANSDERMAL DAILY Qty: 0
Patient Comments:
10/24/2023, pt. currently wearing a patch.
ferrous sulfate 325 mg (65 mg iron) Tablet
325 mg PO QPM Qty: 0
finasteride 5 mg Tablet
5 mg PO QPM
febuxostat 40 mg Tablet
40 mg PO DAILY
Hold Instructions: Until renal function improve
amiodarone 200 mg tablet
200 mg PO DAILY Qty: 30 0RF
aspirin 81 mg Tablet,Delayed Release (Dr/Ec)
81 mg PO DAILY
metoprolol succinate 25 mg tablet extended release 24 hr
12.5 mg PO QPM
Hold Instructions: until Bp>140/90
guaifenesin 600 mg Tablet Extended Release 12hr
600 mg PO BID
Aranesp
1 dose SC Q3W
Patient Comments:
unknown dosage
budesonide 0.5 mg/2 mL Suspension For Nebulization
0.5 mg INHALATION R BIDPRN PRN (Reason: sob)
amlodipine 10 mg tablet
10 mg PO QPM
vancomycin 125 mg capsule
125 mg PO DIRECTED Qty: 90 0RF
Patient Comments:
11/11/2023, start taking one capsule every 3 days for 1 week
sodium bicarbonate 650 mg Tablet
650 mg PO TID Qty: 90 0RF
acetaminophen [Tylenol Extra Strength] 500 mg Tablet
500 mg PO DAILYPRN PRN (Reason: mild pain)
carboxymethylcellulose sodium 1 % Drops, Liquid Gel
1 drp BOTH EYES DAILYPRN PRN (Reason: dry eyes)
Ojjaara 200 mg Tablet
200 mg PO BID
Hold Instructions: Resume on 01/16/24. until cleared by hematology
warfarin [Jantoven] 2 mg Tablet
2 mg PO QPM 30 Days Qty: 30 0RF
insulin lispro [Humalog KwikPen Insulin] 100 unit/mL Insulin Pen
12 unit SC AC Qty: 5 0RF
Patient Comments:
12 units before meal if glucose over 150
insulin glargine [Lantus Solostar U-100 Insulin] 100 unit/mL (3 mL) Insulin Pen
15 unit SC HS Qty: 5 0RF
ipratropium-albuterol [DuoNeb] 0.5 mg-3 mg(2.5 mg base)/3 mL Solution For Nebulization
3 ml INHALATION DAILYPRN PRN (Reason: sob)
dapagliflozin propanediol [Farxiga] 5 mg Tablet
5 mg PO DAILY
dexamethasone 1 mg Tablet
1 mg PO DAILY
Patient Comments:
per pt for 3 days
Referrals:
Rob Santos MD [Family Provider] -
Interventions
Interventions:
*Risk Screen - Suicide Last Done: 11/10/23 23:34
*General Assessment Last Done: 11/10/23 23:34
*Neglect/Abuse Screening Last Done: 11/10/23 23:34
ED- Fall Risk Assessment Last Done: 11/10/23 23:56
*ED COVID-19 Vaccine History Last Done: 11/10/23 23:34
ED- Cardiac Assessment Last Done: 11/10/23 23:56
ED- Pulmonary Assessment Last Done: 11/10/23 23:56
Discharge Date and Time
Print Language: LUX[place]
[2023-11-10 23:37] VITALS: BMI 24.1
[2023-11-10] MEDS: VENTOLIN NEBULES 2.5 MG INH (23:51)
[2023-11-10 23:55] LABS: % Basophils 0.2 % (0-2); % Immature Granulocytes 2.3 % (0-0.5); % Lymphocytes 2.4 % (20.5-51.1); % Monocytes 1.9 % (1.7-9.3); % Neutrophils 93.2 % (42.2-75.2); Absolute Immature Granulocytes 0.5 10^3/uL (0-0.05); Absolute Lymphocytes 0.5 10^3/uL (1.2-3.4); Absolute Monocytes 0.4 10^3/uL (0.1-0.6); Absolute Neutrophils 20.9 10^3/uL (1.4-6.5); Hematocrit 21.3 % (39.0-52.0); Mean Corpuscular Hgb 27.7 pg (27.0-31.0); Mean Corpuscular Volume 92.2 fL (80.0-94.0); Nucleated Red Blood Cells % 0.4 % (-); Platelet Count 250 10^3/uL (130-400); Red Blood Cell Count 2.31 10^6/uL (4.70-6.10); Red Cell Dist. Width 24.2 % (11.5-14.5); White Blood Cell Count 22.4 10^3/uL (4.8-10.8)
[2023-11-11] VITALS (25 sets, daily range): BP systolic 94–136; BP diastolic 37–78; PULSE 60; O2SAT 97; BMI 24.1; BMI 23.9
[2023-11-11 00:01] LABS: Hemoglobin 6.4 g/dL (13.0-18.0)
[2023-11-11 00:06] LABS: Lactic Acid 2.4 mmol/L (0.7-2.0)
[2023-11-11 00:08] LABS: ALT (SGPT) 27 U/L (0-50); AST (SGOT) 32 U/L (17-59); Albumin 2.9 g/dl (3.5-5.0); Alkaline Phosphatase 63 U/L (38-126); Calcium 8.1 mg/dl (8.4-10.2); Carbon Dioxide 19 mmol/L (22-30); Chloride 113 mmol/L (98-107); Estimated Creatinine Clearance 15 ml/min; Glucose 209 mg/dl (70-99); Potassium 5.1 mmol/L (3.5-5.1); Sodium 142 mmol/L (135-145); Total Bilirubin 0.9 mg/dl (0.2-1.3); Total Protein 4.8 g/dl (6.3-8.2); eGFR 15.14
[2023-11-11 00:21] LABS: Blood Urea Nitrogen 126 mg/dl (9-20)
[2023-11-11] MEDS: ZOSYN 50 IV ×2 (00:28→05:27)
[2023-11-11 00:36] LABS: INR 2.66; PT 28.3 Sec (11.4-14.6)
[2023-11-11 00:39] LABS: NT-proBNP > 27000 pg/ml; Troponin I 0.025 ng/ml
[2023-11-11] MEDS: VANCOCIN 200 IV (01:06)
--- NOTE | 2023-11-11 02:16 | EDRN ---
White card sent for blood
--- NOTE | 2023-11-11 02:33 | HPS.HSE ---
Family Physician
-
Family Physician: Rob Santos
Chief Complaint
-
SoB, hypoxia
History of Present Illness
I could not get any information from the patient due to acuity
Information gathered by chart review and speaking with the ER staff.
HPI
83 M HX CLL, myelofibrosis, CKD4 with ACdz, chr HFrEF , Prx AF , chr warfarin BiB EMS or evalautiaon of SoB
Noted recent admission and DC'd on 5 days ago with P dxs of Acute hypoxic RF due to pneumonia +/-
interstitial pneumonitis, GER on CKD4.
Per EMS:
very dyspneic and Hypoxic
He came to ER on NRM
He was DC'd with instruction to hold Lasix due to no evidence of heart failure during discharge.
Medical History
Past Medical History
Past Medical History: Reports Arrhythmia (Prx A Fib ), CAD, CHF, CVA (TIS ), HTN, IDDM and Other (CKD4 )
Past Surgical History: Reports Cardiac (stents )
Social History
Tobacco: Former Smoker
Alcohol: None
Drug: None
Personal:
Living: With Family
Family History
Family History: Not pertinent
Allergies / Home Medications
Allergies reflects when Allergies were last updated in [employer].
Home Medications with original date entered in [employer]
Allergy/Medication List:
Allergies
Allergy/AdvReac Type Severity Reaction Status Date / Time
atorvastatin Allergy ? M-S pain Verified 11/11/23 00:38
immune globulin,gamma (IgG) Allergy Anaphylaxis Verified 11/11/23 00:38
human
prednisone Allergy Unknown Verified 11/11/23 00:38
Home Medications
rosuvastatin 5 mg tablet 5 mg PO QPM High Cholesterol 07/09/19
febuxostat 40 mg tablet 40 mg PO DAILY uric acid 04/29/23
ferrous sulfate 325 mg (65 mg iron) tablet 325 mg PO QPM Supplement ##0 04/29/23
finasteride 5 mg tablet 5 mg PO QPM BPH 04/29/23
nitroglycerin 0.6 mg/hr transdermal 24 hour patch (Nitro-Dur) 1 patch transdermal DAILY Heart Disease/Condition ##0 04/29/23
amiodarone 200 mg tablet 200 mg PO DAILY #30 tabs 06/13/23
aspirin 81 mg tablet,delayed release 81 mg PO DAILY Blood Clot Prevention/Tx 06/20/23
metoprolol succinate 25 mg tablet,extended release 24 hr 12.5 mg PO QPM Heart Disease/Condition 06/20/23
guaifenesin 600 mg tablet, extended release 12 hr 600 mg PO BID Neurological Condition 09/01/23
Aranesp 1 dose SC Q3W anemia 09/23/23
amlodipine 10 mg tablet 10 mg PO QPM Blood Pressure 09/23/23
budesonide 0.5 mg/2 mL suspension for nebulization 0.5 mg inhalation R BIDPRN PRN sob 09/23/23
vancomycin 125 mg capsule 125 mg PO DIRECTED #90 caps 09/26/23
sodium bicarbonate 650 mg tablet 650 mg PO TID #90 tabs 09/27/23
acetaminophen 500 mg tablet (Tylenol Extra Strength) 500 mg PO DAILYPRN PRN mild pain 10/24/23
carboxymethylcellulose sodium 1 % eye liquid gel drops 1 drp BOTH EYES DAILYPRN PRN dry eyes 10/24/23
momelotinib 200 mg tablet (Ojjaara) 200 mg PO BID Myelofibrosis 10/24/23
insulin glargine 100 unit/mL (3 mL) subcutaneous pen (Lantus Solostar U-100 Insulin) 15 unit (0.15 mL) SC HS #5 ea 11/06/23
insulin lispro 100 unit/mL subcutaneous pen (Humalog KwikPen (U-100) Insulin) 12 unit (0.12 mL) SC AC #5 ea 11/06/23
warfarin 2 mg tablet (Jantoven) 2 mg PO QPM 30 days #30 tabs 11/06/23
dapagliflozin propanediol 5 mg tablet (Farxiga) 5 mg PO DAILY 11/11/23
dexamethasone 1 mg tablet 1 mg PO DAILY 11/11/23
ipratropium 0.5 mg-albuterol 3 mg (2.5 mg base)/3 mL nebulization soln 3 ml inhalation DAILYPRN PRN sob 11/11/23
Review of Systems
-
Constitutional: Reports No Symptoms
EENT: Reports No Symptoms
Respiratory: Reports See HPI
Cardiac: Reports See HPI
Abdomen/GI: Reports No Symptoms
: Reports No Symptoms
Musculoskeletal: Reports No Symptoms
Skin: Reports No Symptoms
Neurological: Reports No Symptoms
Endocrine: Reports No Symptoms
Hematologic/Lymphatic: Reports No Symptoms
Psych: Reports No Symptoms
Physical Exam
Vital Signs
Vital Signs
Temp Pulse Resp BP Pulse Ox
97.4 F 61 21 124/45 92
11/10/23 23:34 11/11/23 01:00 11/11/23 01:00 11/11/23 01:00 11/11/23 01:00
Physical Exam
General: No Apparent Distress, Comfortable and Conversant
HEENT: NormoCephalic, Anicteric and Moist mucous membranes
Respiratory: Clear
Cardiac: S1/S2 and Regular Rhythm
GI: Soft, Non Tender and Non Distended
Musculoskeletal: No Edema
Neuro: AO x 3
Psych: Calm
Laboratory Results
-
11/10/23 23:47
11/10/23 23:47
Laboratory Results
PT 28.3 Sec (11.4-14.6) H 11/11/23 00:17
INR 2.66 11/11/23 00:17
Lactic Acid 2.4 mmol/L (0.7-2.0) H 11/10/23 23:47
Total Bilirubin 0.9 mg/dl (0.2-1.3) 11/10/23 23:47
AST 32 U/L (17-59) 11/10/23 23:47
ALT 27 U/L (0-50) 11/10/23 23:47
Alkaline Phosphatase 63 U/L (38-126) 11/10/23 23:47
Troponin I 0.025 ng/ml 11/10/23 23:47
Data Reviewed
-
Diagnostic Radiology: Image Personally Visualized and interpreted
Medical Tests (Nuc Med, Echo, EKG etc): Report Reviewed by me
Lab Data: Labs Reviewed by me
Old Records: Reviewed
Impression/Plan
-
Reviewed VS: unremarkable ; afebrile HR 60s Normotensive
Wt 165 lb ( 11/05/23) ---> 167. 6 ln ( 11/11/23)
Data
WCC 2.4 - baseline is mid 20s
Hgb 6.4 - baseline is hi 7s
Cl 113
CO2 19
BUN 126 - baselines 120-130
Cr 3.8 - baseline is hi 3s to low 4s
eGFR 15 CKD4/5
BG 209
INR 2.6
nl LFTs
NEG TPNI
Alb 2.9
NAG metabolic acidosis at 12.8
pBNP > 27 K - was 19K on 10/28/23
Pending PCT
BCx sent
EKG:
SINUS BRADYCARDIA
RIGHT BUNDLE BRANCH BLOCK
ABNORMAL ECG
WHEN COMPARED WITH ECG OF 25-OCT-2023 12:29,
NO SIGNIFICANT CHANGE WAS FOUND
11/11/23 CXR pending final report : acute pul edema with bilateral parenchymal opacities by my view
11/03/23 CXR
Overall, significant interval improvement in bilateral parenchymal opacities, suggesting improvement in pneumonia.
There has been interval development of a more confluent area of parenchymal opacity within the left lower lung, most likely atelectasis.
Probable small left pleural effusion.
10/25/23 TTE
LVEF 44
Global hypokinesis
Nl RV function and size
Last hospitalist admission: 10/23//10/25
P Dxs;
1. Acute hypoxic respiratory failure due to pneumonia +/-interstitial pneumonitis.
2. Acute kidney injury on chronic kidney disease 4.
ASSESSMENT & PLAN
Pending Rx reconciliation
Suspect acute on chr HFrEF in setting of holding Lasix and advaced CKD4
Associated acute on chronic hypoxic RF
Gained 2.6 lbs ovr las 6 days
-Echo above and without significant change from September 2023
- BiPAP
- IV Lasix 80 BID
- cont BB
- daily Wt, IOs
- daily BMP
- DCA Card and Renal consult
Acute on ACDz
- denies dark/black stool
- HX chf chronic anemia due to myelofibrosis on steroids
- baseline Hgb baseline is hi 7s
- Blood consented
- 1 unit of PRBCs
- cont. IV Lasix as above
Bilateral infiltrates
Recent HX PNA +/-interstitial pneumonitis.
- cont IV Zosyn
CKD4:
-Cr continues to worsen
-Cont sodium bicarb
- Renal consult
Other problems:
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
Paroxysmal atrial fibrillation: with therapeutic INR. cont Coumadin
CAD: h/o stents, cont ASA/statin/BB
COPD: cont Pulmicort/DuoNebs
HX ABELARDO
IDDM: cont Op insulin regime, ad ISS low
Essential hypertension: Cont BB, held Amlodipne
Hypercholesterolemia: cont statin
Recent C. difficile colitis: Continue oral vancomycin
BPH: Continue finasteride
Full-thickness coccyx/perineal ulcer, likely healing PI stage 3
DVT Px: chr warfarin
Code: full
ICU
--- NOTE | 2023-11-11 02:46 | EDRN ---
Per blood bank, blood must be infused on blood warmer. Blood warmer set up, VS documented in TAR, attempted to scan PRBC in TAR multiple times without success. Call placed to lab and informed TAR cannot be used for this unit of blood.
Documentation done on pink sheet per lab.
--- NOTE | 2023-11-11 03:11 | EDRN ---
Report given to Delmi in ICU
[2023-11-11 04:15] LABS: Hematocrit 21.4 % (39.0-52.0); Mean Corp Hgb Conc. 31.8 g/dL (33.0-37.0); Mean Corpuscular Hgb 29.8 pg (27.0-31.0); Mean Corpuscular Volume 93.9 fL (80.0-94.0); Mean Platelet Volume 10.2 fL (7.4-10.4); Platelet Count 226 10^3/uL (130-400); Red Blood Cell Count 2.28 10^6/uL (4.70-6.10); Red Cell Dist. Width 23.4 % (11.5-14.5)
[2023-11-11 04:33] LABS: Lactic Acid 1.8 mmol/L (0.7-2.0)
[2023-11-11 04:35] LABS: Blood Urea Nitrogen 119 mg/dl (9-20); Calcium 7.8 mg/dl (8.4-10.2); Carbon Dioxide 17 mmol/L (22-30); Chloride 115 mmol/L (98-107); Estimated Creatinine Clearance 15 ml/min; Glucose 162 mg/dl (70-99); Potassium 4.7 mmol/L (3.5-5.1); Sodium 143 mmol/L (135-145); eGFR 15.14
--- NOTE | 2023-11-11 05:11 | PTCARENOTE ---
Received patient AAOx4, following commands, denying pain, moves all extremities. Sinus georgette/normal sinus with right BBB, 50s-60s. BP stable, 130s-140s/50s-60s, palpable radial pulses and weak pedal pulses bilaterally. Normothermic, +1 bilateral
pitting lower extremity edema. On 10 liters midflow, crackles and wheeze in the bases. Occasional nonproductive cough. Abdomen soft, round, nontender, positive bowel sounds. Urinal to void. Bilateral bruising on arms present on admission. Stage 3
pressure ulcer present on admission, wound consulted. 1 unit PRBC infused with blood warmer. Comfort measures provided, warm blankets given, CHG bath done. Right forearm #20 and left antecubital #20 patent, WNL. Call gibbons within reach.
[2023-11-11] MEDS: FIRVANQ 125 MG PO ×2 (05:47→12:05)
[2023-11-11] MEDS: LASIX 80 MG IV (06:41)
--- NOTE | 2023-11-11 06:41 | PTCARENOTE ---
Patient continuously saturating 85-87%, maxed on midflow. House provider notified, RT TT to put patient on high flow. Now on 30 liters, 60% saturating 92%. Stat dose of IV lasix given. Labs sent. Otherwise patient assessment unchanged from previous,
call gibbons within reach.
[2023-11-11 06:50] LABS: Hematocrit 22.2 % (39.0-52.0)
[2023-11-11] MEDS: PULMICORT 0.5 MG INH ×2 (07:23→19:18)
[2023-11-11] MEDS: DUONEB 3 ML INH ×2 (07:23→19:18)
[2023-11-11 07:26] LABS: Hemoglobin 6.8 g/dL (13.0-18.0)
[2023-11-11 07:36] LABS: Glucose - Point of Care 132 mg/dl (70-99)
--- NOTE | 2023-11-11 07:57 | W.PN.HOSP.TC ---
Today's Communication/Plan
-
Stop Zosyn
Reduce dose of vancomycin
Monitor hemoglobin
Assessment / Plan
Assessment / Plan
Gen-AAOx3, NAD
HEENT-NC, AT, anicteric, clear oral mm
Neck-supple
CV-reg, no M, +S1/S2
Lungs-bilateral rales, rhonchi
Abd-soft, NT, ND
Ext-no edema
Musculoskeletal-no cyanosis, clubbing
Skin-warm and dry
Neuro-grossly non-focal
Psych-calm, cooperative
Acute on chronic hypoxic respiratory failure -likely multifactorial etiology including acute on chronic heart failure, interstitial lung disease. Has underlying COPD, ABELARDO. Currently on high flow nasal cannula oxygen, wean down as able. Not on
home oxygen.
Clinically doubt pneumonia. Stop antibiotics.
Acute on chronic heart failure with reduced EF exacerbation -very difficult to assess true volume status. Cardiology consulted. Discharged last week off diuretics.
Acute on chronic anemia -baseline hemoglobin averages 8-9, admission hemoglobin 6.4. Transfused 1 unit of blood. Hemoglobin 6.8 this morning, will trend and if persistently less than 7 will transfuse again. MCV normal.
CLL/MGUS/myelofibrosis -was on Momelotinib.
CKD 4 -renal function stable.
Paroxysmal atrial fibrillation -on warfarin, amiodarone. INR therapeutic.
CAD -stable.
COPD without exacerbation
DM2 without hyperglycemia -he is on Lantus 15 units at bedtime, Humalog 12 units AC at home, Farxiga 5 mg daily.
Essential hypertension
Hyperlipidemia -on rosuvastatin.
History of CDAD -resume vancomycin taper, currently on 1 tablet every 72 hours.
BPH
Full-thickness coccyx/perineal ulcer, likely healing PI stage 3
Full code
Anticipated Discharge: > 48 hours
Subjective/Interval History
-
Date of Service: November 11, 2023
Patient seen and examined. Complaining of dyspnea on exertion.
Objective Data
-
Labs:
Laboratory Results
11/10/23 11/11/23 11/11/23
23:47 00:17 04:00
WBC 22.4 H 22.0 H
Hgb 6.4 L* 7.0 L
Hct 21.3 L 21.4 L
Plt Count 250 226
PT 28.3 H
INR 2.66
Sodium 142 143
Potassium 5.1 4.7
Chloride 113 H 115 H
Carbon Dioxide 19 L 17 L
BUN 126 H* 119 H*
Creatinine 3.8 H 3.8 H
Glucose 209 H 162 H
Calcium 8.1 L 7.8 L
Total Bilirubin 0.9
AST 32
ALT 27
Alkaline Phosphatase 63
11/11/23 11/11/23 11/11/23
06:36 12:00 18:00
WBC
Hgb 6.8 L* Pending Pending
Hct 22.2 L Pending Pending
Plt Count
PT
INR
Sodium Pending
Potassium Pending
Chloride Pending
Carbon Dioxide Pending
BUN Pending
Creatinine Pending
Glucose Pending
Calcium Pending
Total Bilirubin
AST
ALT
Alkaline Phosphatase
Vital Signs:
Vital Signs
Temp Pulse Resp BP Pulse Ox
97.7 F 63 22 114/45 89
11/11/23 07:39 11/11/23 07:25 11/11/23 07:25 11/11/23 06:41 11/11/23 07:25
I&O
11/10/23 11/11/23 11/12/23
06:59 06:59 06:59
Intake Total 50 / 50
Output Total 200 / 200 200 / 200
Balance -150 / -150 -200 / -200
Review of Systems
-
History Source: Patient
All other systems: Reviewed and negative
--- NOTE | 2023-11-11 08:07 | CON.CAR ---
Addendum entered and electronically signed by Enrique Artis MD 11/11/23 10:59:
I saw and examined the patient.
The [employer] or PA's note was reviewed and I agree with the note.
Comment: General: Well developed, well nourished in NAD.
Neck: Supple, no JVD, HJR, carotids +2 B/L, no bruits bilaterally.
Heart: Non displaced PMI, RRR, no murmurs, No S3, S4, no rubs.
Lungs: Scattered rhonchi
Extremities: No clubbing, cyanosis or edema bilaterally.
Neuro: Grossly nonfocal, awake, alert and oriented x3.
Enrique has a history of multivessel coronary disease, CLL/myeloproliferative disorder/hemolytic anemia requiring intermittent transfusion, hypertension, stage IV renal insufficiency, diabetes, PAF, COPD/interstitial pneumonitis. He presented with
worsening dyspnea on exertion. He was admitted in October 2023 with acute respiratory failure secondary to pneumonia and was discharged on 11/06/2023. He remains on 40% oxygen.
Will treat as acute systolic CHF but unclear how well he will do with diuretics given severe renal insufficiency. Nephrology is managing diuretics. Creatinine is 3.8. Of note he has gotten transfusion for hemoglobin of 6.4 on admission and
hemoglobin remains low at 6.8. He is in sinus rhythm will need to follow INR on Coumadin.
Original Note:
Consultation
Consultation Request
Date/Time Consultation Requested: 11/11/2023
Date/Time Consultation Performed: 11/11/2023
Requesting Provider: Dr. Parks
Performing Provider: Deb Paz PA-C for Dr. Enrique Artis
Reason for Consultation: Shortness of breath, heart failure
Medical History
-
History of Present Illness:
He has a past medical history of multivessel coronary artery disease, CLL/myeloproliferative disorder/hemolytic anemia requiring intermittent transfusions and routinely scheduled Aranesp, hypertension, chronic kidney disease stage IV, diabetes,
hyperlipidemia, paroxysmal A-fib and COPD/interstitial pneumonitis who presented to emergency department 11/10/2023 with worsening shortness of breath. Patient was recently hospitalized 10/24/2023 through 11/06/2023 with acute hypoxic respiratory
failure secondary to pneumonia plus or minus interstitial pneumonitis in setting of Momelotinib requiring antibiotics and steroids. He was also noted to have GER with peak creatinine of 4.4. His Lasix was discontinued during admission with
improvement of creatinine to 3.8 and he was not discharged home on Lasix at recommendation of nephrology. Patient now presenting back to emergency department 11/10/2023 with acute hypoxic respiratory failure requiring high flow oxygen.
Patient was noted to be anemic with hemoglobin of 6.4 and was transfused 1 unit of blood with improvement of hemoglobin to 6.8. proBNP was greater than 27,000. Chest x-ray showed acute pulmonary edema with bilateral parenchymal opacities, final
report pending. BUN 126 with creatinine of 3.8. Troponin 0.025. EKG demonstrated sinus bradycardia 59 bpm with right bundle branch block. He was given IV Lasix 80 mg in emergency department. Cardiology being asked to see patient for acute heart
failure exacerbation. At time of this evaluation he is sitting in chair on high flow oxygen
PMH:
Proctitis
Multiple admissions for pneumonia
History of C. difficile (on vancomycin)
Chronic heart failure with reduced ejection fraction
Coronary artery disease status post prior ostial LAD PCI in 2015 with cardiac catheterization 05/2023 noting diffusely positive IFR of the LAD back to the left main (medical therapy)
Prior ischemic cardiomyopathy with LVEF of 25 to 30%, most recently recovered to 50-55% on echo
History of NSVT
CKD stage IV, marked proteinuria
CLL/MGUS/Chronic anemia�management per Dr. 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
Paroxysmal atrial fibrillation, on chronic anticoagulation with Coumadin [history of hemoptysis and hematuria on Xarelto in 2017. Declined Eliquis]
COPD, not on home oxygen
h/o C diff diarrhea
Hypertension
Hyperlipidemia
Type 2 diabetes mellitus
Mild cognitive decline / Frailty
Obstructive sleep apnea
Gout hx
IgG deficiency hx
Prior hematuria in 2016/history of BPH
Past Medical History
Past Medical History: Other (See HPI)
Past Surgical History: Cardiac (Cardiac cath May 2023) and Other (Pilonidal cyst extraction, Mohs surgery, bone marrow biopsy, prostate Biopsy, cataract extraction)
Social History
Tobacco: Former Smoker
Alcohol: None
Drug: None
Living: With Family
Employment: Retired
Family History
Family History: CAD (Mother CO at 53) and Diabetes
Allergies / Home Medications
Allergy/AdvReac Type Severity Reaction Status Date / Time
atorvastatin Allergy ? M-S pain Verified 11/11/23 00:38
immune globulin,gamma (IgG) Allergy Anaphylaxis Verified 11/11/23 00:38
human
prednisone Allergy Unknown Verified 11/11/23 00:38
�Medication �Instructions �Recorded �Confirmed �Type
rosuvastatin 5 mg tablet 5 mg PO QPM High Cholesterol 07/09/19 11/11/23 History
febuxostat 40 mg tablet 40 mg PO DAILY uric acid 04/29/23 11/11/23 History
ferrous sulfate 325 mg (65 mg 325 mg PO QPM Supplement ##0 04/29/23 11/11/23 History
iron) tablet
finasteride 5 mg tablet 5 mg PO QPM BPH 04/29/23 11/11/23 History
nitroglycerin 0.6 mg/hr 1 patch transdermal DAILY Heart 04/29/23 11/11/23 History
transdermal 24 hour patch Disease/Condition ##0
(Nitro-Dur)
amiodarone 200 mg tablet 200 mg PO DAILY #30 tabs 06/13/23 11/11/23 Rx
aspirin 81 mg tablet,delayed 81 mg PO DAILY Blood Clot 06/20/23 11/11/23 History
release Prevention/Tx
metoprolol succinate 25 mg 12.5 mg PO QPM Heart 06/20/23 11/11/23 History
tablet,extended release 24 hr Disease/Condition
guaifenesin 600 mg tablet, 600 mg PO BID Neurological 09/01/23 11/11/23 History
extended release 12 hr Condition
Aranesp 1 dose SC Q3W anemia 09/23/23 11/11/23 History
amlodipine 10 mg tablet 10 mg PO QPM Blood Pressure 09/23/23 11/11/23 History
budesonide 0.5 mg/2 mL suspension 0.5 mg inhalation R BIDPRN PRN sob 09/23/23 11/11/23 History
for nebulization
vancomycin 125 mg capsule 125 mg PO DIRECTED #90 caps 09/26/23 11/11/23 Rx
sodium bicarbonate 650 mg tablet 650 mg PO TID #90 tabs 09/27/23 11/11/23 Rx
acetaminophen 500 mg tablet 500 mg PO DAILYPRN PRN mild pain 10/24/23 11/11/23 History
(Tylenol Extra Strength)
carboxymethylcellulose sodium 1 % 1 drp BOTH EYES DAILYPRN PRN dry 10/24/23 11/11/23 History
eye liquid gel drops eyes
momelotinib 200 mg tablet (Ojjaara) 200 mg PO BID Myelofibrosis 10/24/23 11/11/23 History
insulin glargine 100 unit/mL (3 15 unit (0.15 mL) SC HS #5 ea 11/06/23 11/11/23 Rx
mL) subcutaneous pen (Lantus
Solostar U-100 Insulin)
insulin lispro 100 unit/mL 12 unit (0.12 mL) SC AC #5 ea 11/06/23 11/11/23 Rx
subcutaneous pen (Humalog KwikPen
(U-100) Insulin)
warfarin 2 mg tablet (Jantoven) 2 mg PO QPM 30 days #30 tabs 11/06/23 11/11/23 Rx
dapagliflozin propanediol 5 mg 5 mg PO DAILY 11/11/23 11/11/23 History
tablet (Farxiga)
dexamethasone 1 mg tablet 1 mg PO DAILY 11/11/23 11/11/23 History
ipratropium 0.5 mg-albuterol 3 mg 3 ml inhalation DAILYPRN PRN sob 11/11/23 11/11/23 History
(2.5 mg base)/3 mL nebulization
soln
Review of Systems
-
History Source: Patient
All other systems: Negative unless noted
Physical Exam
Vital Signs
Temp Pulse Resp BP Pulse Ox
97.7 F 63 22 114/45 93
11/11/23 07:39 11/11/23 07:25 11/11/23 07:25 11/11/23 06:41 11/11/23 08:04
GEN: No distress, awake, Ox3, sitting in chair on high flow oxygen
HEENT: supple, anicteric, mmm
LUNGS: Course/rhonchus breath sounds bilaterally CTA
CV: Reg, S1/S2, 1/6 syst murmur, no rubs or gallops
ABD: soft, BS+, NT/ND
EXT: +2-3 bilateral pitting edema
NEURO: Gross non-focal
SKIN: No rash, warm, dry, pink
Lab Results
Troponin I 0.025 ng/ml 11/10/23 23:47
Xad-U-Qljgxbpiyap Pept > 20946 pg/ml 11/10/23 23:47
Impression / Plan
-
PCP: Rob Santos
Outpatient [facility] Hand: BRIGITTE Snow
Impression:
Presents 11/10/2023 with shortness of breath
Acute hypoxic respiratory failure
Pulmonary edema
Acute on chronic heart failure with reduced ejection fraction
GER, on CKD
Recent admission w/ d/c 11/06/23 for acute hypoxic respiratory failure due to pneumonia/interstitial pneumonitis
History of C. difficile (on vancomycin)
Chronic heart failure with reduced ejection fraction
Recent multiple hospitalizations including proctitis and pneumonia in June 2023
Recent prolonged admission following outpatient cardiac catheterization 05/10 - 05/21/2023
Coronary artery disease status post prior ostial LAD PCI in 2016 with recent cardiac catheterization noting diffusely positive IFR of the LAD back to the left main
Prior ischemic cardiomyopathy with LVEF of 25 to 30%, most recently recovered to 50-55% on echo
History of NSVT last admission
Acute on CKD stage IIIb/marked proteinuria
CLL/MGUS/Chronic anemia�management per Dr. 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 Aranesp initiated 05/09/23 every 3 weeks.
Paroxysmal atrial fibrillation, on chronic anticoagulation with Coumadin [history of hemoptysis and hematuria on Xarelto in 2017. Declined Eliquis]
COPD, not on home oxygen
C diff diarrhea
Hypertension
Hyperlipidemia
Type 2 diabetes mellitus
Mild cognitive decline / Frailty
Obstructive sleep apnea
Gout hx
IgG deficiency hx
Prior hematuria in 2016/history of BPH
Echo 10/25/2023: EF 44%, global hypokinesis more prominent in mid and basal segments of anterior lateral wall. Mild to moderate MR. Mild AI. Mild TR.
Echo 09/02/23: EF 45-50% with mild global hypokinesis and more notable mid to apical anterolateral. EF 50-55% visual by echo Jun 2023.
Echocardiogram�from January 22, 2023 showed top normal LV size with low normal or mildly globally reduced systolic function, LVEF of 50 to 55%, thickened mitral valve leaflets with MAC and mild MR, aortic sclerosis with mild AI, normal right heart
with normal PA systolic pressure, dilated aorta with maximum diameter of 4.4 cm.
Pharmacologic nuclear stress test�on January 2023 showed abnormal perfusion imaging with small, mild apical inferior and apical lateral defect suggestive of mild ischemia.� No evidence of scar.� Systolic function was mildly reduced at 42% on stress
test.� Compared to prior study from 2020, apical lateral and apical inferior defects were present then but also inferior, mid inferior and inferolateral segments.� LVEF prior was 40%
Left heart catheterization�from July 28, 2015: Mild tapering of distal left main.� Complex high-grade stenosis from proximal to mid LAD involving the origin of a very large diagonal branch.� The mid LAD beyond the diagonal has a 60% stenosis and
60% distal stenosis.� Nonobstructive disease in the other arteries.� LV gram suggested an LVEF of 25 to 30%.� On August 01, 2015 he underwent a 3.0 x 28 mm Alpine Xience 5 drug-eluting stent to the ostial LAD
Left heart catheterization from May 10, 2023: LVEDP 14. Left main large vessel which gives rise to LAD and circumflex. 20% distal left main stenosis. Diffuse atherosclerotic in-stent restenosis up to 50% spanning ostial to mid LAD involving
origin of a very large diagonal branch. Mid LAD beyond diagonal branch has 50 to 60% stenosis and a focal 56% distal stenosis. iFR is grossly positive at 0.7 in the mid to distal LAD. 50 to 60% ostial diagonal stenosis. Circumflex is large with
bifurcating OM1 with 30 to 40% stenosis and diffuse atherosclerotic plaque. RCA is large dominant vessel moderately calcified with a high anterior origin from the aorta. Diffuse atherosclerotic plaque. Following this procedure patient was seen by
CT surgery and was deemed too high risk. Decision was made for medical therapy; could consider high risk PCI if fails medical therapy
Plan:
-Presents 11/10/2023 with acute hypoxic respiratory failure requiring high flow oxygen
-Acute on chronic heart failure with reduced ejection fraction, proBNP greater than 27,000. patient was taken off diuretics during hospitalization in early November secondary to GER
-Provided 80 mg IV Lasix in emergency department. Reports that he is making good urine. Monitor and assess response. Will defer management of diuretics to nephrology as patient is well-known to them (restarted on Lasix 80 mg IV BID)
-Continue low-dose Toprol, Farxiga. Stage IV CKD prevents initiation of KYE/ARB/ARNI or Aldactone
-GER on CKD stage IV with recent creatinine peaking at 4.4. Creatinine running 3.8 which appears to be new baseline. Continue oral bicarb and 8 for metabolic acidosis. Nephrology following.
-Acute on chronic anemia. Hemoglobin noted to be 6.4 on admission. He was transfused 1 unit of blood on 11/11/2023. Repeat hemoglobin 6.8. Continue to monitor and trend
-Paroxysmal atrial fibrillation on chronic anticoagulation with Coumadin. INR 2.66. Continue to monitor and trend. Patient is in sinus rhythm. Continue low-dose beta-royce and amiodarone
-Patient recently admitted with pneumonia/pneumonitis. Defer management of antibiotics to hospitalist
Data Reviewed
-
EKG: Report Reviewed by me, Discussed with Physician and Discussed with Patient
Radiology: Report Reviewed by me, Discussed with Physician and Discussed with Patient
Labs: Labs Reviewed by me, Discussed with Physician and Discussed with Patient
Old Records: Reviewed
[2023-11-11 08:08] LABS: Magnesium 2.7 mg/dl (1.6-2.3); Phosphorus 4.9 mg/dl (2.5-4.5)
--- NOTE | 2023-11-11 08:09 | PN.DE.MGMTRT ---
Addendum entered and electronically signed by PADMA Sullivan 11/11/23 12:52:
Pre-lunch glucose is 77. Will reduce NovoLog from 12 units to 8 units AC. Cont and low corrective with meals.
Original Note:
Insulin Management
- -
11/11/2023: Diabetes Management Consult:
83 year old male with PMH: CKD4, HFrEF, CLL/myelofibrosis, anemia of chronic disease, PAFib, CAD, COPD, HTN, DLD, recent C-Diff, BPH
was recently discharged after a lengthy hospitalization 10/23 to 11/05 with Acute Hypoxic respiratory failure 2/2 to pneumonia +/- Interstitial Pneumonitis in setting of Momelotinib. Was started on IV steroids- Dexamethasone 4mg Q12 hrs-->Hyperglycemia
and was started on Insulin.
Pt was readmitted 11/09 for acute respiratory hypoxia. Last A1C 5.2%, repeat pending, Cr 3.8, eGFR 15.14-baseline
Pt states he has no known hx of Diabetes Mellitus.
Current diabetes regimen includes Lantus 15 units @ HS and NovoLog 12 units AC and Farxiga 101mg daily.
Pt awake, alert, oriented x3, sitting up in bed, offers no complaints, able to discuss diabetes mgt.
On low dose steroids- Dexa 1mg daily. states he has been monitoring his blood sugars before each meal and has noted range of 80-150 in morning and higher glucose level in the evening. states that he has been holding premeal insulin if blood sugar is
<150 but consistently taking the Lantus every night.
Glucose has been relatively stable since admission, was 209@ HS, FBG 162 (V) and 132 before breakfast.
Diabetes regimen includes: Lantus 15 units @ HS and NovoLog 12 units AC with low corrective.
Will cont current regimen for now and reassess at lunch time if need to reduce AC dose.
Diabetes plan of care discussed with pt and Pt's Nurse.
Diabetes History
- -
Type of Diabetes: 2 requiring insulin
Pre-Admission Diabetes Regimen
11/10/23 11/11/23
23:47 04:00
Creatinine 3.8 H 3.8 H
Insulin Pump Settings
IP Diabetes Regimen
11/10/23 11/11/23 11/11/23
23:47 04:00 07:25
Glucose 209 H 162 H
POC Glucose 132 H
Patient Education
[2023-11-11] MEDS: DECADRON 1 MG PO (08:13)
--- NOTE | 2023-11-11 08:13 | W.CON.NEPH ---
Consultation
-
Date/Time Consultation Requested: 11/11/2023
Date/Time Consultation Performed: 11/11/2023
Requesting Provider: Sarita
Performing Provider: Dr. Delgado
Reason for Consultation: Chronic kidney disease stage
Medical History
-
Chief Complaint: CKD 4
History of Present Illness:
Mr. Matthews is an 83YOM with PMH of CKD4, HFrEF, CLL/myelofibrosis, anemia of chronic disease, pAFib, CAD, COPD, HTN, DLD, recent Cdiff, BPH who presented to the hospital for SOB with exertion. He is maintained on Aranesp for anemia of chronic kidney
disease. He has a history of diabetes maintained on insulin therapy. He was recently admitted with pneumonitis versus congestive heart failure with hypoxia earlier this month. He was just discharged last week . He was admitted last evening for
acute respiratory hypoxia. We were consulted for chronic kidney disease stage IV.
Past Medical History
CLL, myelofibrosis, atrial fibrillation, CAD status post stents, HFpEF, COPD, hypertension, hypercholesterolemia, diabetes, CKD4, anemia, C. difficile
Past Medical History: Other
Past Surgical History: Other (cardiac stents)
Social History
Tobacco: Former Smoker
Alcohol: None
Drug: None
Family History
Family History: Not Pertinent
Allergies / Home Medications
Allergy/AdvReac Type Severity Reaction Status Date / Time
atorvastatin Allergy ? M-S pain Verified 11/11/23 00:38
immune globulin,gamma (IgG) Allergy Anaphylaxis Verified 11/11/23 00:38
human
prednisone Allergy Unknown Verified 11/11/23 00:38
�Medication �Instructions �Recorded �Confirmed �Type
rosuvastatin 5 mg tablet 5 mg PO QPM High Cholesterol 07/09/19 11/11/23 History
febuxostat 40 mg tablet 40 mg PO DAILY uric acid 04/29/23 11/11/23 History
ferrous sulfate 325 mg (65 mg 325 mg PO QPM Supplement ##0 04/29/23 11/11/23 History
iron) tablet
finasteride 5 mg tablet 5 mg PO QPM BPH 04/29/23 11/11/23 History
nitroglycerin 0.6 mg/hr 1 patch transdermal DAILY Heart 04/29/23 11/11/23 History
transdermal 24 hour patch Disease/Condition ##0
(Nitro-Dur)
amiodarone 200 mg tablet 200 mg PO DAILY #30 tabs 06/13/23 11/11/23 Rx
aspirin 81 mg tablet,delayed 81 mg PO DAILY Blood Clot 06/20/23 11/11/23 History
release Prevention/Tx
metoprolol succinate 25 mg 12.5 mg PO QPM Heart 06/20/23 11/11/23 History
tablet,extended release 24 hr Disease/Condition
guaifenesin 600 mg tablet, 600 mg PO BID Neurological 09/01/23 11/11/23 History
extended release 12 hr Condition
Aranesp 1 dose SC Q3W anemia 09/23/23 11/11/23 History
amlodipine 10 mg tablet 10 mg PO QPM Blood Pressure 09/23/23 11/11/23 History
budesonide 0.5 mg/2 mL suspension 0.5 mg inhalation R BIDPRN PRN sob 09/23/23 11/11/23 History
for nebulization
vancomycin 125 mg capsule 125 mg PO DIRECTED #90 caps 09/26/23 11/11/23 Rx
sodium bicarbonate 650 mg tablet 650 mg PO TID #90 tabs 09/27/23 11/11/23 Rx
acetaminophen 500 mg tablet 500 mg PO DAILYPRN PRN mild pain 10/24/23 11/11/23 History
(Tylenol Extra Strength)
carboxymethylcellulose sodium 1 % 1 drp BOTH EYES DAILYPRN PRN dry 10/24/23 11/11/23 History
eye liquid gel drops eyes
momelotinib 200 mg tablet (Ojjaara) 200 mg PO BID Myelofibrosis 10/24/23 11/11/23 History
insulin glargine 100 unit/mL (3 15 unit (0.15 mL) SC HS #5 ea 11/06/23 11/11/23 Rx
mL) subcutaneous pen (Lantus
Solostar U-100 Insulin)
insulin lispro 100 unit/mL 12 unit (0.12 mL) SC AC #5 ea 11/06/23 11/11/23 Rx
subcutaneous pen (Humalog KwikPen
(U-100) Insulin)
warfarin 2 mg tablet (Jantoven) 2 mg PO QPM 30 days #30 tabs 11/06/23 11/11/23 Rx
dapagliflozin propanediol 5 mg 5 mg PO DAILY 11/11/23 11/11/23 History
tablet (Farxiga)
dexamethasone 1 mg tablet 1 mg PO DAILY 11/11/23 11/11/23 History
ipratropium 0.5 mg-albuterol 3 mg 3 ml inhalation DAILYPRN PRN sob 11/11/23 11/11/23 History
(2.5 mg base)/3 mL nebulization
soln
Review of Systems
-
History Source: Patient
All other systems: Negative unless noted
Constitutional: No Symptoms
EENT: No Symptoms
Respiratory: Cough and Trouble Breathing
Cardiac: No Symptoms
Abdomen/GI: No Symptoms
: No Symptoms
Musculoskeletal: No Symptoms
Skin: No Symptoms
Neurological: No Symptoms
Endocrine: No Symptoms
Hematologic/Lymphatic: No Symptoms
Physical Exam
Vital Signs
Vital Signs
Temp Pulse Resp BP Pulse Ox
97.7 F 63 22 114/45 93
11/11/23 07:39 11/11/23 07:25 11/11/23 07:25 11/11/23 06:41 11/11/23 08:04
Lab Results
WBC 22.0 10^3/uL (4.8-10.8) H 11/11/23 04:00
RBC 2.28 10^6/uL (4.70-6.10) L 11/11/23 04:00
Hgb Cancelled 11/11/23 18:00
Hct Cancelled 11/11/23 18:00
Plt Count 226 10^3/uL (130-400) 11/11/23 04:00
eGFR 15.14 11/11/23 04:00
Phosphorus 4.9 mg/dl (2.5-4.5) H 11/11/23 06:36
Czm-H-Bmgxjlffknn Pept > 89791 pg/ml 11/10/23 23:47
Albumin 2.9 g/dl (3.5-5.0) L 11/10/23 23:47
Physical Exam
General: AOx3, Nontoxic , mild respiratory distress
HEENT: PERRL, EOMI, Anicteric, Conjunctivae Clear, Ear/Nose Intact, Hearing Normal, Oropharynx Clear/Moist, Dentition Intact, Facial Symmetry, Neck Supple, Neck: Trachea Midline, No JVD and No Thyromegaly, no Bruits
Respiratory: Bilateral crackles and inspiratory wheezes with normal lung excursion
Cardiac: S1/S2 and Regular Rate/Rhythm
Breast: Deferred by me
Abdomen: Soft, Nontender, Nondistended, Normal Bowel Sounds and No Hepatosplenomegaly
Rectal: Deferred by Provider
Genito-urinary: No Costovertebral Tenderness
Extremities: No Clubbing, No Cyanosis and some trace pedal edema
Skin: No Rash or open lesions
Neuro: Nonfocal/Grossly Intact, CN II-XII (Intact) and Strength (Musculoskeletal exam 5 out of 5 both upper and lower extremities)
Hematologic/Lymphatic: No Cervical Lymphadenopathy, No Submandibular Lymphadenopathy and No Supraclavicular Lymphadenopathy
Psych: Mood/afflect pleasant, Insight/judgement good and Appropriate
Vascular: plus 1 pedal and radial pulses
Data Reviewed
-
Radiology: Image Personally Visualized and interpreted (Chest x-ray: Noted bilateral interstitial changes)
Labs: Labs Reviewed by me (BMP)
Old Records: Reviewed (Creatinine reviewed from 11/06/2023 3.8)
Assessment/Plan
-
Chronic kidney disease stage IV
Acute on chronic hypoxic respiratory
COPD/interstitial lung disease/recent pneumonia
History of congestive heart failure
Anemia
CLL/MGUS/myelofibrosis
Type 2 diabetes
Hypertension
BPH
History of C. difficile (on vancomycin)
Metabolic acidosis
Plan:
-Kidney function is at baseline
-Reinitiate oral Lasix in settingof chronic CHF and CKD (weights at baseline)
-Maintain oral bicarbonate for metabolic acidosis
-Hemodynamically stable on amlodipine
[2023-11-11] MEDS: SODIUM BICARBONATE 650 MG PO ×3 (08:14→22:18)
[2023-11-11] MEDS: MUCINEX 600 MG PO ×2 (08:14→19:56)
[2023-11-11] MEDS: PACERONE 200 MG PO (08:14)
[2023-11-11] MEDS: NITRO-DUR 0.599999999999999978 MG TRANSDERM (08:14)
[2023-11-11] MEDS: FARXIGA 5 MG PO (08:14)
[2023-11-11] MEDS: ASPIR LOW (ENTERIC COATED) 81 MG PO (08:14)
[2023-11-11] MEDS: NOVOLOG FLEXPEN 12 UNITS SC (08:22)
[2023-11-11] MEDS: NOVOLOG FLEXPEN-LOW RESISTANCE SC ×3 (08:23→16:59)
--- NOTE | 2023-11-11 09:52 | PTCARENOTE ---
Received pt awake and alert.Speech is appropriate.+HICKS.Assisted OOB to chair with 2 person minimal assist.Denies pain.SR noted.High Flow O2 30l 60%.POX 92-94%+ dyspnea at rest and with exertion.Crackles and wheezing 3/4 up.Occasional moist non
productive cough.Appetite good.+ large BM.Voiding yellow urine.Grade III sacral wound noted.Plan of care discussed with pt.
[2023-11-11 09:54] LABS: Glycohemoglobin (HgbA1c) 4.8 % (4.0-5.6)
--- NOTE | 2023-11-11 11:20 | WOUNDNOTE ---
SACRUM/GLUTEAL CLEFT VERTICAL
--- NOTE | 2023-11-11 11:21 | WOUNDNOTE ---
[facility] RN note: Patient admitted with CHF, Pneumonia and anemia.
See H&P for complete history.
PMH: CLL, CKD, CM, HF, a fib (Coumadin), pneumonia, HTN, NIDDM, polycythemia vera, ABELARDO, myelofibrosis, gout, COPD, anemia,leukemia, sacral PI.
Wound Location and type/assessment: Patient known to service last seen 10/29/23 for same sacral/gluteal cleft stage 3 PI. Wound no longer bleeding, base with mild slough, edges with few areas of light purple discoloration. Patient able to turn self
easily in bed. Both arms with multiple bruising. Heels are intact.
Appetite: Good. Encouraged protein in diet.
Pressure redistribution devices in place:Air mattress, keep on if transferred. Air chair cushion in use when sitting.
Plan: Dressing changed on sacral gluteal cleft using smear of honey gel, adaptic, alginate and silicone foam. Pillow under calves. Patient to take air chair cushion when discharged, recommend frequent shifts in position when sitting.
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 Nurse Diane made aware of the above.
Care plan to be updated and will follow as needed.
Note to case management requested for discharge: VN if goes home.
Recommend follow up at wound care center upon discharge.
--- NOTE | 2023-11-11 11:54 | CM ---
CM attempted bedside visit- pt sleeping soundly
VM left for spouse introducing self and explaining role
Assessment done from chart review
Pt admitted to from 10/23-11/05 for PNA
Initially declined services on dc- called back post dc requesting [facility] be arranged
Pt not opened to services due to readmission
Pt resides with his spouse in a 2[address] with 3 [address]
Full flight to second floor
Pt is independent with his ADLs
No DMEs or home O2- hx with [facility] and [facility]
PCP- Rob Santos
Rx- Lesli Ang
Pt currently in ICU with 40L HH oxygen needs
PT order placed and eval pending
Discharge Disposition- home, watch for higher needs
--- NOTE | 2023-11-11 12:01 | CON.INTV ---
Consultation
Consultation Request
Date/Time Consultation Requested: 11/11/2023
Date/Time Consultation Performed: 11/11/2023
Requesting Provider: DR. Parks
Performing Provider: Dr. Andres Rivera
Reason for Consultation: Follow-up acute hypoxemic respiratory failure
Medical History
-
Chief Complaint: SOB
History of Present Illness:
83-year-old male former tobacco smoker with past medical history of asthma/COPD, gout, CLL, history of PCV, mild restrictive lung disease, ABELARDO, HFpEF, A-fib s/p multiple DCCV on chronic amiodarone and warfarin, CAD with history of ME s/p coronary
stents and myelofibrosis who presents with low oxygen level and shortness of Breath. He was recently discharged from the hospital on 11/06/2023 and also was previously admitted to the hospital in September 2023 due to C. difficile colitis and acute
kidney injury.
Due to increased oxygen requirements he was placed on high flow oxygen requiring up to 60% FiO2.
No need for noninvasive mechanical ventilation.
Prior history :
Of note patient follows with us in the [facility] office with Dr. Camara, last office visit on 11/22/2022. He has a history of lower lobe bronchiectasis, chronic bronchitis with asthma/COPD, mild restrictive lung disease and chronic rhinitis with sleep
apnea on auto BiPAP. His last full PFT was in November 2022 which was negative for an obstructive defect with an FEV1/FVC of 71, TLC 79, vital capacity 90%, RV 61%, and a very severe diffusion capacity (DLCO: 36%). On his past PFTs (2825-8078), there
was mild as moderate COPD seen, and his DLco was less severe at that time.
Pt seen and evaluated this AM. Currently on high flow oxygen, sitting out of bed. Was able to be transferred to the commode.
Hemoglobin was 6.4 and patient received a unit of packed red blood cells. Has history of Myelofibrosis.
Chest x-ray showed interval significant worsening of bilateral airspace disease. Alveolar opacities more prominent within the right lung. No significant pleural effusions. No pneumothorax.
Chronic leukocytosis noted. No fevers per
His weight has been stable comparatively[place] [address]
---
PMHx: CLL, myelofibrosis, A-fib s/p multiple DCCV on chronic amiodarone and warfarin, CAD with history of ME (08/2015) s/p stent to LAD, HFpEF, COPD, hypertension, hypercholesterolemia, DM type II, CKD, anemia and history of C. difficile, history of
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
gout, BPH
PSHx: Mohs surgery (left middle finger), bone marrow biopsy, prostate biopsy, bilateral cataract surgery, coronary artery stenting, pilonidal cyst excision
Past Medical History
Past Medical History: Other (Above as per HPI)
Past Surgical History: Other (Above as per HPI)
Social History
Tobacco: Former Smoker (Quit smoking in his 20s)
Alcohol: None
Drug: None
Family History
Family History: CAD (Mother: ME) and Diabetes (Paternal grandfather: Diabetes)
Allergies / Home Medications
Allergies
Allergy/AdvReac Type Severity Reaction Status Date / Time
atorvastatin Allergy ? M-S pain Verified 11/11/23 00:38
immune globulin,gamma (IgG) Allergy Anaphylaxis Verified 11/11/23 00:38
human
prednisone Allergy Unknown Verified 11/11/23 00:38
Home Medications
�Medication �Instructions �Recorded �Confirmed �Last Taken �Type
rosuvastatin 5 mg tablet 5 mg PO QPM High Cholesterol 07/09/19 11/11/23 10/23/23 History
febuxostat 40 mg tablet 40 mg PO DAILY uric acid 04/29/23 11/11/23 10/24/23 History
ferrous sulfate 325 mg (65 mg 325 mg PO QPM Supplement ##0 1111/11/23 10/23/23 History
iron) tablet
finasteride 5 mg tablet 5 mg PO QPM BPH 04/29/23 11/11/23 10/23/23 History
nitroglycerin 0.6 mg/hr 1 patch transdermal DAILY Heart 04/29/23 11/11/23 10/24/23 History
transdermal 24 hour patch Disease/Condition ##0
(Nitro-Dur)
amiodarone 200 mg tablet 200 mg PO DAILY #30 tabs 06/13/23 11/11/23 10/24/23 Rx
aspirin 81 mg tablet,delayed 81 mg PO DAILY Blood Clot 06/20/23 11/11/23 10/24/23 History
release Prevention/Tx
metoprolol succinate 25 mg 12.5 mg PO QPM Heart 06/20/23 11/11/23 10/23/23 History
tablet,extended release 24 hr Disease/Condition
guaifenesin 600 mg tablet, 600 mg PO BID Neurological 09/01/23 11/11/23 10/24/23 History
extended release 12 hr Condition
Aranesp 1 dose SC Q3W anemia 09/23/23 11/11/23 10/24/23 History
amlodipine 10 mg tablet 10 mg PO QPM Blood Pressure 09/23/23 11/11/23 09/22/23 History
budesonide 0.5 mg/2 mL suspension 0.5 mg inhalation R BIDPRN PRN sob 09/23/23 11/11/23 Unknown History
for nebulization
vancomycin 125 mg capsule 125 mg PO DIRECTED #90 caps 09/26/23 11/11/23 10/23/23 Rx
sodium bicarbonate 650 mg tablet 650 mg PO TID #90 tabs 09/27/23 11/11/23 10/24/23 Rx
acetaminophen 500 mg tablet 500 mg PO DAILYPRN PRN mild pain 10/24/23 11/11/23 Unknown History
(Tylenol Extra Strength)
carboxymethylcellulose sodium 1 % 1 drp BOTH EYES DAILYPRN PRN dry 10/24/23 11/11/23 Unknown History
eye liquid gel drops eyes
momelotinib 200 mg tablet (Ojjaara) 200 mg PO BID Myelofibrosis 10/24/23 11/11/23 10/23/23 History
insulin glargine 100 unit/mL (3 15 unit (0.15 mL) SC HS #5 ea 11/06/23 11/11/23 Unknown Rx
mL) subcutaneous pen (Lantus
Solostar U-100 Insulin)
insulin lispro 100 unit/mL 12 unit (0.12 mL) SC AC #5 ea 11/06/23 11/11/23 Unknown Rx
subcutaneous pen (Humalog KwikPen
(U-100) Insulin)
warfarin 2 mg tablet (Jantoven) 2 mg PO QPM 30 days #30 tabs 11/06/23 11/11/23 Unknown Rx
dapagliflozin propanediol 5 mg 5 mg PO DAILY Heart 11/11/23 11/11/23 Unknown History
tablet (Farxiga) Disease/Condition
dexamethasone 1 mg tablet 1 mg PO DAILY Anti-Inflammatory 11/11/23 11/11/23 Unknown History
ipratropium 0.5 mg-albuterol 3 mg 3 ml inhalation DAILYPRN PRN sob 11/11/23 11/11/23 Unknown History
(2.5 mg base)/3 mL nebulization
soln
Review of Systems
Vitals / Labs / Diagnostic Testing
Vital Signs
Temp Pulse Resp BP Pulse Ox
97.4 F 61 18 119/38 93
11/11/23 11:34 11/11/23 09:00 11/11/23 09:00 11/11/23 08:25 11/11/23 08:25
Lab Data
11/11/23 18:00
Laboratory Results
11/11/23
00:17
PT 28.3 H
INR 2.66
Diagnostic Testing:
Physical Exam
-
HEENT: Normocephalic
Cardiovascular: S1/S2 and Regular Rhythm
Respiratory: Rales
GI: Non Distended
Neurology: Awake and Oriented
General: Respiratory Distress (mild at rest)
Assessment
-
83-year-old man with extensive past medical history. Recently discharged from the hospital, at that time he was admitted with similar complaints of worsening shortness of breath and hypoxemia. He was treated with IV diuretics also he was given
high-dose of the steroids. At that time chest x-ray clear prior to discharge. Plan was to discharge steroids for anti-inflammatory properties, patient is reluctant to use systemic prednisone.
He did complete a course of Zosyn as well. He was discharged on 1 L of supplemental oxygen.
Comes back with worsening shortness of breath and hypoxemia up to requiring high flow oxygen.
Chest x-ray abnormal after complete clearance prior to discharge.
-
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
of gout, BPH
Impression:
#Acute respiratory failure with hypoxia-currently on high flow oxygen.
#Bilateral infiltrates-right greater than left. Possibly inflammatory pneumonitis versus pulmonary edema. Less likely infectious.
Chest x-ray 11/10/2023 improved from 10/25/2023.
#Acute on chronic anemia-no evidence for bleeding.
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
With proBNP significantly elevated component of volume overload also possible
# Sacral decubitus ulcer present on admission.
#Hx of asthma/copd not in an acute exacerbation
#Hx of ABELARDO on auto-BiPAP
#History of bronchiectasis on vest therapy at home
Plan:
Patient transferred to the critical care unit due to increased work of breathing and hypoxemic respiratory failure on HFO2 60%.
Recently discharged from the hospital with similar complaints and improved after ABX and systemic steroids.
At that time chest x-ray was significantly abnormal.
He was treated with a full course of Zosyn and also he was given high-dose of steroids for possible inflammatory pneumonitis.
-
Latest chest x-ray in the system 11/03/2023 showed almost complete resolution of infiltrates prior to discharge.
He was discharged on 1 L of supplemental oxygen.
-
Currently back on high flow oxygen-60% FiO2.
Chest x-ray with increased interstitial markings bilaterally-right greater than left.
He has been weaned off almost completely off steroids.
Currently no strong evidence for infection. Procalcitonin is slightly elevated-not valid inpatient with elevated creatinine and BUN at this point
Afebrile/chronic leukocytosis is not change.
Agree with discontinuation of antibiotics and observe
-
Discussed with nephrology given stability and weight felt that probably volume overload not playing significant role. Difficult to assess clinically.
At this point I will obtain a CT of the chest without IV contra to better evaluate his lung parenchyma.
-
May need to consider place back on IV corticosteroids as appears to have responded previously during last admission. Will wait for CT chest results.
If unable to determine whether inflammatory pneumonitis is a possibility, may need to consider right heart catheterization at some point. Dialysis may be needed.
-
Continue to hold momelotinib -review adverse effect profile. No mention for interstitial lung pneumonia but increased risk of respiratory failure and pneumonia. states the patient has not received since prior admission.
-
Patient also on amiodarone 200 mg daily-this dose usually does not cause pulmonary toxicity
-
Continue to follow hemoglobin.
Transfuse as needed..
-
History of COPD/bronchiectasis: Not bronchospastic on exam
Okay to continue with nebulizers, budesonide and DuoNebs.
Chronic kidney disease creatinine 3.8/BUN 119.
Nephrology following-correspondence reviewed
Back on oral Lasix.
They have discussed dialysis in the past.
Follow blood sugar
Insulin supplementation as needed
-
Sacral decubitus ulcers-local care
Nutritional support as able
-
Prior history of obstructive sleep apnea on BiPAP 05/07-currently on hold due to increased oxygen requirement
Outpatient follow-up with Dr. Camara after discharge per
Total time spent today was 50 minutes for this encounter. Time includes reviewing laboratory test/imaging results, reviewing pertinent medical records, obtaining and reviewing medical history, performing an appropriate exam, ordering medications,
tests and procedures. Time also includes documentation of this encounter, coordinating patient care and communicating with other healthcare professionals. Total time does not include separately billed tests performed on this date of service.

Data:
CXR 10-24-2023:
The heart size is within the limits of normal.
There are bilateral airspace and interstitial infiltrates, right greater than left, consistent with diffuse pneumonia.
Regional skeleton intact.
TTE 10-25-2023:
Normal left ventricular wall thickness.
Normal left ventricular chamber size.
Mildly reduced left ventricular systolic function.
Left ventricular ejection fraction is 44% by Anaya's method.
Global hypokinesis, more prominent in the mid and basal segments of the
anterolateral wall.
Normal right ventricular size and function.
Mitral valve opens normally.
Mild to moderate mitral regurgitation.
Trace to mild aortic regurgitation.
Mild tricuspid regurgitation.
The IVC is of normal size and demonstrates normal respiratory variation.
Normal pericardium without effusion.
No significant change noted from 09/2023
[2023-11-11 12:12] LABS: Glucose - Point of Care 77 mg/dl (70-99)
--- NOTE | 2023-11-11 12:12 | PTCARENOTE ---
Pt assessed.No change in assessment noted.Pt requested to go back to bed.OOB x 1.5 hours.Blood sugar 77.BRICK LOADER Douse made aware.
[2023-11-11 12:16] LABS: Hematocrit 23.7 % (39.0-52.0); Hemoglobin 7.1 g/dL (13.0-18.0)
[2023-11-11] MEDS: NOVOLOG FLEXPEN SC (12:19)
[2023-11-11 13:17] LABS: Calcium 7.7 mg/dl (8.4-10.2); Carbon Dioxide 20 mmol/L (22-30); Chloride 114 mmol/L (98-107); Estimated Creatinine Clearance 15 ml/min; Glucose 71 mg/dl (70-99); Potassium 4.4 mmol/L (3.5-5.1); Sodium 143 mmol/L (135-145); eGFR 14.68
[2023-11-11 13:22] LABS: Blood Urea Nitrogen 126 mg/dl (9-20)
[2023-11-11] MEDS: NOVOLOG FLEXPEN 8 UNITS SC ×2 (13:47→18:03)
--- NOTE | 2023-11-11 14:38 | VNURNOTE ---
Home Health Liaison met with patient and Sharon at 1230 to discuss [facility] nurse/therapy, visits, schedule and homebound status. Patient is agreeable and understands that visits at home will be 2-3 x per week to assess and teach medical management.
Patient has a scale and is able to log a daily weight.
[facility] brochure provided with contact information. Patient is aware that [facility] will contact him for start of care in 1-2 days after discharge from .
[facility] referral completed in saved mode in Care Port until closer to discharge.
--- NOTE | 2023-11-11 15:31 | PTOTSP ---
Dysphagia Evaluation
Suspect oral/pharyngeal stages of swallowing WFL but cannot rule out silent aspiration bedside. Patient with risk factors for dysphagia/aspiration (i.e., admitted with acute hypoxic respiratory failure, on HFNC; repeated PNAs, COPD, possible
Zenker's diverticulum).
Patient with history of video swallow study 07/23/2014 with WFL oral/pharyngeal swallow and possible tiny Zenker's diverticulum.
Recommend:
1. Regular, Thin Liquids
2. Medications as best tolerated
3. Strategies: upright to 90 degrees, small single sips/bites, slow rate with breaks for breathing, remain upright for at least 30 minutes after PO intake
4. If concerned for silent aspiration and/or bottom up aspiration from Zenker's diverticulum contributing to current respiratory status, please order imaging as appropriate. Patient consented to video swallow study as needed.
--- NOTE | 2023-11-11 16:11 | PTCARENOTE ---
Pt assessed.No change in assessment noted.
--- NOTE | 2023-11-11 16:41 | W.PN.UPDATE ---
Update Note
Progress Note Update
Patient has remained on 60% FiO2 high flow oxygen per
Does not appear in distress. Able to converse.
CT of the chest pending.
If CT of the chest not compatible with pulmonary edema/heart failure-will start IV corticosteroids for possible inflammatory ILD.
Likely will order ILD serology.
At this point, we will transfer to IMU status. Pulmonary will continue to follow.
[2023-11-11] MEDS: LASIX 80 MG PO (16:58)
[2023-11-11 17:08] LABS: Glucose - Point of Care 110 mg/dl (70-99)
[2023-11-11] MEDS: COUMADIN 2 MG PO (18:01)
[2023-11-11] MEDS: PROSCAR 5 MG PO (18:02)
[2023-11-11] MEDS: TOPROL XL 12.5 MG PO (18:02)
[2023-11-11] MEDS: CRESTOR 5 MG PO (18:02)
[2023-11-11] MEDS: FEOSOL 325 MG PO (18:02)
--- NOTE | 2023-11-11 18:19 | PTCARENOTE ---
Midflow 15 l attempted to travel to CT scan.Pt did not tolerate this modality with increased tachypnea and hypoxia.Dr Dejessu made aware.
--- NOTE | 2023-11-11 20:38 | PTCARENOTE ---
Received patient AAOx4, following commands, denying pain, moves all extremities. Sinus georgette/normal sinus 50s-60s with BBB. BP stable, 100-120s/50s-60s, normothermic, palpable radial and pedal pulses bilaterally. +2 bilateral lower extremity pitting
edema. Lung sounds coarse throughout, inspiratory wheeze and crackles posteriorly. Last BM today, abdomen soft, round, nontender, positive bowel sounds. Urinal to void, putting out clear yellow urine. Bruising on b/l arms. Foam on sacrum CDI. Right
forearm #20 and left antecubital #20 patent, WNL. Call gibbons within reach, repositioned.
[2023-11-11] MEDS: LANTUS 0.149999999999999994 UNITS SC (22:18)
[2023-11-11 22:31] LABS: Glucose - Point of Care 76 mg/dl (70-99)
[2023-11-12] VITALS (26 sets, daily range): BP systolic 107–136; BP diastolic 41–78; PULSE 108; O2SAT 92; BMI 23.3
[2023-11-12 05:49] LABS: % Basophils 0.2 % (0-2); % Eosinophils 0.1 % (0-6); % Immature Granulocytes 1.8 % (0-0.5); % Lymphocytes 2.9 % (20.5-51.1); % Monocytes 1.9 % (1.7-9.3); % Neutrophils 93.1 % (42.2-75.2); Absolute Immature Granulocytes 0.3 10^3/uL (0-0.05); Absolute Lymphocytes 0.5 10^3/uL (1.2-3.4); Absolute Monocytes 0.4 10^3/uL (0.1-0.6); Absolute Neutrophils 17.4 10^3/uL (1.4-6.5); Mean Corpuscular Hgb 28.5 pg (27.0-31.0); Mean Corpuscular Volume 91.9 fL (80.0-94.0); Mean Platelet Volume 11.1 fL (7.4-10.4); Nucleated Red Blood Cells % 0.3 % (-); Platelet Count 160 10^3/uL (130-400); Red Blood Cell Count 2.21 10^6/uL (4.70-6.10); Red Cell Dist. Width 22.5 % (11.5-14.5); White Blood Cell Count 18.6 10^3/uL (4.8-10.8)
[2023-11-12 06:16] LABS: Hematocrit 20.3 % (39.0-52.0); Hemoglobin 6.3 g/dL (13.0-18.0)
[2023-11-12 06:27] LABS: Calcium 7.5 mg/dl (8.4-10.2); Carbon Dioxide 21 mmol/L (22-30); Chloride 117 mmol/L (98-107); Estimated Creatinine Clearance 15 ml/min; Glucose 42 mg/dl (70-99); Potassium 4.3 mmol/L (3.5-5.1); Sodium 145 mmol/L (135-145); eGFR 14.68
[2023-11-12 06:33] LABS: Blood Urea Nitrogen 125 mg/dl (9-20)
[2023-11-12 07:03] LABS: Glucose - Point of Care 68 mg/dl (70-99)
[2023-11-12] MEDS: NOVOLOG FLEXPEN-LOW RESISTANCE SC (07:14)
[2023-11-12 07:28] LABS: Glucose - Point of Care 103 mg/dl (70-99)
[2023-11-12] MEDS: PULMICORT 0.5 MG INH ×2 (07:31→20:17)
[2023-11-12] MEDS: DUONEB 3 ML INH ×2 (07:31→20:17)
--- NOTE | 2023-11-12 07:44 | PN.DE.MGMTRT ---
Insulin Management
- -
11/12/2023: Diabetes Management Follow up:
Pt readmitted 11/09 for acute respiratory hypoxia after a lengthy hospitalization 10/23 to 11/05 with Acute Hypoxic respiratory failure 2/2 to pneumonia +/- Interstitial Pneumonitis in setting of Momelotinib. PMH: CKD4, HFrEF, CLL/myelofibrosis, anemia
of chronic disease, PAFib, CAD, COPD, HTN, DLD, recent C-Diff, BPH
Current A1C 4.8%, Cr 3.9, eGFR 14.68.
Pt states he has no known hx of Diabetes Mellitus.
Pt awake, alert, oriented x3, sitting up in bed, offers no complaints, able to discuss diabetes mgt.
On low dose steroids- Dexamethasone 1mg daily. States he has been monitoring his blood sugars before each meal and has noted range of 80-150 in morning and higher glucose level in the evening. States he has been holding premeal insulin if blood
sugar is <150 but consistently taking the Lantus every night.
Current Diabetes regimen includes: Farxiga 5 mg daily, Lantus 15 units @ HS and NovoLog 8 units AC with low corrective. Glucose range yesterday 71 to 110 fasting today 42.
Patient received 7 mg Decadron IV, pre lunch glucose 206. Will increase ac novolog to 10 units. Due to hypoglycemia this AM will reduce hs lantus to 12.
Diabetes plan of care discussed with pt and Pt's Nurse.
Diabetes History
- -
Type of Diabetes: 2
Pre-Admission Diabetes Regimen
11/11/23 11/12/23
12:00 05:43
Creatinine 3.9 H 3.9 H
Lab Results
Hemoglobin A1c 4.8 % (4.0-5.6) 11/11/23 04:00
Insulin Pump Settings
IP Diabetes Regimen
11/11/23 11/11/23 11/11/23
12:00 16:55 22:17
Glucose 71
POC Glucose 77 110 H 76
11/12/23 11/12/23 11/12/23
05:43 06:52 07:16
Glucose 42 L*
POC Glucose 68 L 103 H
Meal type: Dinner
Meal type: Breakfast
Amount consumed: 100%
Amount consumed: 100%
Patient Education
[2023-11-12] MEDS: DECADRON 1 MG PO (07:47)
[2023-11-12] MEDS: LASIX 80 MG PO (07:48)
[2023-11-12] MEDS: PACERONE 200 MG PO (07:51)
[2023-11-12] MEDS: ASPIR LOW (ENTERIC COATED) 81 MG PO (07:52)
[2023-11-12] MEDS: SODIUM BICARBONATE 650 MG PO ×3 (07:52→20:18)
[2023-11-12] MEDS: MUCINEX 600 MG PO ×2 (07:52→20:18)
[2023-11-12] MEDS: FARXIGA 5 MG PO (07:52)
[2023-11-12] MEDS: NITRO-DUR 0.599999999999999978 MG TRANSDERM (07:52)
[2023-11-12] MEDS: NOVOLOG FLEXPEN 6 UNITS SC (08:05)
--- NOTE | 2023-11-12 08:07 | PTCARENOTE ---
0700 patient in bed. AAO x3 Denies pain/discomfort. BP via left upper arm 107/78 SR 97 RR 29; POX 95/high flow 50L/100%. Dyspnea at rest and exertion; Moist non-productive cough. Tremors b/L UE; Blood sugar earlier this am 42; Novolog changed from 8
to 6 units AC; Appetite good . CT chest pending. Blood transfusion pending
[2023-11-12 08:13] LABS: Anisocytosis 1+; Normal RBC Morphology No
[2023-11-12 08:14] LABS: Hypochromasia 1+; Microcytosis 1+; Ovalocytes 1+
--- NOTE | 2023-11-12 08:42 | W.PN.HOSP.TC ---
Addendum entered and electronically signed by Sergey Stein DO 11/12/23 13:52:
CT chest suggestive of bilateral pulmonary interstitial and alveolar edema.
Will change Lasix to intravenous, 80 mg twice daily. Discussed with cardiology and pulmonary, nephrology.
If no improvement, may need right heart catheterization.
Left voicemail for to call me back.
Original Note:
Today's Communication/Plan
-
wean oxygen as able
systemic steroids
transfuse
Assessment / Plan
Assessment / Plan
Gen-AAOx3, NAD
HEENT-NC, AT, anicteric, clear oral mm
Neck-supple
CV-reg, no M, +S1/S2
Lungs-bilateral rales, rhonchi
Abd-soft, NT, ND
Ext-no edema
Musculoskeletal-no cyanosis, clubbing
Skin-warm and dry
Neuro-grossly non-focal
Psych-calm, cooperative
Acute on chronic hypoxic respiratory failure -likely multifactorial etiology including acute on chronic heart failure, interstitial lung disease. Has underlying COPD, ABELARDO. Currently on high flow nasal cannula oxygen, wean down as able. Not on
home oxygen.
Clinically doubt pneumonia. Off antibiotics.
Discussed with pulmonary, plan to start systemic steroids for interstitial lung disease. Consider discontinuing amiodarone if able.
Acute on chronic heart failure with reduced EF exacerbation -very difficult to assess true volume status. Cardiology consulted. Discharged last week off diuretics.
Acute on chronic anemia -baseline hemoglobin averages 8-9, admission hemoglobin 6.4. Hemoglobin down to 6.3 again today. Getting second unit of blood today. Must use irradiated, leuko reduced, CMV neg.
Gets Aranesp q3 weeks by Dr Alexis, due for next dose this .
CLL/MGUS/myelofibrosis -was on Momelotinib.
CKD 4 -renal function stable.
Paroxysmal atrial fibrillation -on warfarin, amiodarone. INR therapeutic.
CAD -stable.
COPD without exacerbation
DM2 without hypoglycemia -he is on Lantus 15 units at bedtime, Humalog 12 units AC at home, Farxiga 5 mg daily. Insulin doses adjusted by diabetes VICE PRESIDENT QUALITY.
Essential hypertension - stable.
Hyperlipidemia -on rosuvastatin.
History of CDAD -resume vancomycin taper, currently on 1 tablet every 72 hours x 7 days.
BPH
Full-thickness coccyx/perineal ulcer, likely healing PI stage 3
Full code
Anticipated Discharge: > 48 hours
Subjective/Interval History
-
Date of Service: November 12, 2023
Patient seen and examined. No new complaints.
Objective Data
-
Labs:
Laboratory Results
11/12/23
05:43
WBC 18.6 H
Hgb 6.3 L*
Hct 20.3 L*
Plt Count 160 D
Sodium 145
Potassium 4.3
Chloride 117 H
Carbon Dioxide 21 L
BUN 125 H*
Creatinine 3.9 H
Glucose 42 L*
Calcium 7.5 L
Vital Signs:
Vital Signs
Temp Pulse Resp BP Pulse Ox
97.5 F 104 30 107/78 91
11/12/23 07:48 11/12/23 08:00 11/12/23 08:00 11/12/23 08:00 11/12/23 08:00
I&O
11/11/23 11/12/23 11/13/23
06:59 06:59 06:59
Intake Total 50 / 50 240 / 240
Output Total 200 / 200 1900 / 1900 200 / 200
Balance -150 / -150 -1660 / -1660 -200 / -200
Review of Systems
-
History Source: Patient
All other systems: Reviewed and negative
--- NOTE | 2023-11-12 08:50 | W.PN.NEPH.PH ---
Today's Communication / Plan
-
Maintain oral Lasix
Follow BMP
CT scan of chest
Assessment/Plan
-
Chronic kidney disease stage IV
Acute on chronic hypoxic respiratory
COPD/interstitial lung disease/recent pneumonia
History of congestive heart failure
Anemia
CLL/MGUS/myelofibrosis
Type 2 diabetes
Hypertension
BPH
History of C. difficile (on vancomycin)
Metabolic acidosis
Plan:
-Kidney function is at baseline but with profound azotemia
-maintain oral lasix nonoliguric ~1700cc,weights down
-Maintain oral bicarbonate for metabolic acidosis
-Hemodynamically stable on amlodipine
-Anemia worsening and will likely require transfusion
-Pulmonary initiating steroids for possible pneumonitis
-If respiratory status does not improve we may require right heart cath to accurately assess volume status
-If patient remains hypervolemic despite aggressive diuresis we may need to transition to dialysis
-
-
Date of Service: November 12, 2023
CC / HPI / ROS
-
Chief Complaint:
CKD stage IV
History of Present Illness:
Hemodynamically stable on amlodipine
Creatinine stable at 3.9 but with BUN in excess of 120
Anemia worsening
Review of Systems:
Nonoliguric
Weights down
Remains on high flow oxygen and sob at rest
Labs
-
Labs:
WBC 18.6 10^3/uL (4.8-10.8) H 11/12/23 05:43
RBC 2.21 10^6/uL (4.70-6.10) L 11/12/23 05:43
Hgb 6.3 g/dL (13.0-18.0) L* 11/12/23 05:43
Hct 20.3 % (39.0-52.0) L* 11/12/23 05:43
Plt Count 160 10^3/uL (130-400) D 11/12/23 05:43
Sodium 145 mmol/L (135-145) 11/12/23 05:43
Potassium 4.3 mmol/L (3.5-5.1) 11/12/23 05:43
Chloride 117 mmol/L (98-107) H 11/12/23 05:43
Carbon Dioxide 21 mmol/L (22-30) L 11/12/23 05:43
BUN 125 mg/dl (9-20) H* 11/12/23 05:43
Creatinine 3.9 mg/dL (0.7-1.3) H 11/12/23 05:43
eGFR 14.68 11/12/23 05:43
Glucose 42 mg/dl (70-99) L* 11/12/23 05:43
Calcium 7.5 mg/dl (8.4-10.2) L 11/12/23 05:43
Phosphorus 4.9 mg/dl (2.5-4.5) H 11/11/23 06:36
Ciy-E-Vozbxsrxkua Pept > 71546 pg/ml 11/10/23 23:47
Albumin 2.9 g/dl (3.5-5.0) L 11/10/23 23:47
Physical Exam
-
Vital Signs:
Vital Signs
Temp Pulse Resp BP Pulse Ox
97.5 F 104 30 107/78 91
11/12/23 07:48 11/12/23 08:00 11/12/23 08:00 11/12/23 08:00 11/12/23 08:00
Cardiovascular:: Regular rate and rhythm (tachy)
Respiratory:: Bilateral: Coarse, Bilateral: Rhonchi and Bilateral: Wheeze
Lung Excursion:: Normal
Abdomen:: Nontender and Soft
Bowel Sounds:: Normal
Extremity Edema:: +1: Bilateral:
Crespo Catheter: No
--- NOTE | 2023-11-12 09:05 | W.PN.CARDCBS ---
Today's Communication / Plan
-
Will defer diuresis to nephrology
Back in A-fib this AM, would continue beta-royce and amiodarone
Impression / Plan
-
PCP: Rob Santos
Outpatient Supersonic Engineer: BRIGITTE Snow
Impression:
Presents 11/10/2023 with shortness of breath
Acute hypoxic respiratory failure
Pulmonary edema
Acute on chronic heart failure with reduced ejection fraction
GER, on CKD
Recent admission w/ d/c 11/06/23 for acute hypoxic respiratory failure due to pneumonia/interstitial pneumonitis
History of C. difficile (on vancomycin)
Chronic heart failure with reduced ejection fraction
Recent multiple hospitalizations including proctitis and pneumonia in June 2023
Recent prolonged admission following outpatient cardiac catheterization 05/10 - 05/21/2023
Coronary artery disease status post prior ostial LAD PCI in 2015 with recent cardiac catheterization noting diffusely positive IFR of the LAD back to the left main
Prior ischemic cardiomyopathy with LVEF of 25 to 30%, most recently recovered to 50-55% on echo
History of NSVT last admission
Acute on CKD stage IIIb/marked proteinuria
CLL/MGUS/Chronic anemia�management per Dr. 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 Aranesp initiated 05/09/23 every 3 weeks.
Paroxysmal atrial fibrillation, on chronic anticoagulation with Coumadin [history of hemoptysis and hematuria on Xarelto in 2017. Declined Eliquis]
COPD, not on home oxygen
C diff diarrhea
Hypertension
Hyperlipidemia
Type 2 diabetes mellitus
Mild cognitive decline / Frailty
Obstructive sleep apnea
Gout hx
IgG deficiency hx
Prior hematuria in 2015/history of BPH
Echo 10/25/2023: EF 44%, global hypokinesis more prominent in mid and basal segments of anterior lateral wall. Mild to moderate MR. Mild AI. Mild TR.
Echo 09/02/23: EF 45-50% with mild global hypokinesis and more notable mid to apical anterolateral. EF 50-55% visual by echo Jun 2023.
Echocardiogram�from January 22, 2023 showed top normal LV size with low normal or mildly globally reduced systolic function, LVEF of 50 to 55%, thickened mitral valve leaflets with MAC and mild MR, aortic sclerosis with mild AI, normal right heart
with normal PA systolic pressure, dilated aorta with maximum diameter of 4.4 cm.
Pharmacologic nuclear stress test�on January 2023 showed abnormal perfusion imaging with small, mild apical inferior and apical lateral defect suggestive of mild ischemia.� No evidence of scar.� Systolic function was mildly reduced at 42% on stress
test.� Compared to prior study from 2020, apical lateral and apical inferior defects were present then but also inferior, mid inferior and inferolateral segments.� LVEF prior was 40%
Left heart catheterization�from July 28, 2015: Mild tapering of distal left main.� Complex high-grade stenosis from proximal to mid LAD involving the origin of a very large diagonal branch.� The mid LAD beyond the diagonal has a 60% stenosis and
60% distal stenosis.� Nonobstructive disease in the other arteries.� LV gram suggested an LVEF of 25 to 30%.� On August 01, 2015 he underwent a 3.0 x 28 mm Alpine Xience 5 drug-eluting stent to the ostial LAD
Left heart catheterization from May 10, 2023: LVEDP 14. Left main large vessel which gives rise to LAD and circumflex. 20% distal left main stenosis. Diffuse atherosclerotic in-stent restenosis up to 50% spanning ostial to mid LAD involving
origin of a very large diagonal branch. Mid LAD beyond diagonal branch has 50 to 60% stenosis and a focal 56% distal stenosis. iFR is grossly positive at 0.7 in the mid to distal LAD. 50 to 60% ostial diagonal stenosis. Circumflex is large with
bifurcating OM1 with 30 to 40% stenosis and diffuse atherosclerotic plaque. RCA is large dominant vessel moderately calcified with a high anterior origin from the aorta. Diffuse atherosclerotic plaque. Following this procedure patient was seen by
CT surgery and was deemed too high risk. Decision was made for medical therapy; could consider high risk PCI if fails medical therapy
Plan:
-Presents 11/10/23 with acute hypoxic respiratory failure requiring high flow oxygen
-Acute on chronic heart failure with reduced ejection fraction, proBNP greater than 27,000. patient was taken off diuretics during hospitalization in early November secondary to GER
-CKD stage IV. Creatinine running 3.9 which appears to be new baseline. Nephrology following.
-Provided 80 mg IV Lasix in emergency department. Reports that he is making good urine. Monitor and assess response.
-Will defer management of diuretics to nephrology as patient is well-known to them (restarted on Lasix 80 mg IV BID)
-Continue low-dose Toprol, Farxiga. Stage IV CKD prevents initiation of KYE/ARB/ARNI or Aldactone
-Paroxysmal atrial fibrillation, back in AFib 11/12/23
-Continue low-dose beta-royce and amiodarone
-On chronic anticoagulation with Coumadin. INR 2.66. Continue warfarin here and monitor INR
-Acute on chronic anemia. Hemoglobin noted to be 6.4 on admission. He was transfused 1 unit of blood on 11/11/2023. Repeat hemoglobin 6.8. Continue to monitor and trend
-Patient recently admitted with pneumonia/pneumonitis. Defer management of antibiotics to hospitalist
Progress Note - Supersonic Engineer
Subjective
Date of Service: November 12, 2023
NAOE. Remains in MICU. On midflow O2. No SOB at rest, some MINOR. No palpitations or chest pain.
Objective
Labs:
11/12/23 05:43
11/12/23 05:43
Labs
Hgb 6.3 g/dL (13.0-18.0) L* 11/12/23 05:43
Hct 20.3 % (39.0-52.0) L* 11/12/23 05:43
Plt Count 160 10^3/uL (130-400) D 11/12/23 05:43
PT 28.3 Sec (11.4-14.6) H 11/11/23 00:17
INR 2.66 11/11/23 00:17
Sodium 145 mmol/L (135-145) 11/12/23 05:43
Potassium 4.3 mmol/L (3.5-5.1) 11/12/23 05:43
BUN 125 mg/dl (9-20) H* 11/12/23 05:43
Creatinine 3.9 mg/dL (0.7-1.3) H 11/12/23 05:43
Glucose 42 mg/dl (70-99) L* 11/12/23 05:43
Troponins
11/10/23
23:47
Troponin I 0.025
Vital Signs and I&O:
Vital Signs
Temp Pulse Resp BP Pulse Ox
97.5 F 104 30 107/78 91
11/12/23 07:48 11/12/23 08:00 11/12/23 08:00 11/12/23 08:00 11/12/23 08:00
Vital Signs
Temp Pulse Resp BP Pulse Ox
97.5 F 104 30 107/78 91
11/12/23 07:48 11/12/23 08:00 11/12/23 08:00 11/12/23 08:00 11/12/23 08:00
Intake & Output
11/10/23 11/11/23 11/12/23 11/13/23
06:59 06:59 06:59 06:59
Intake Total 50 / 50 240 / 240
Output Total 200 / 200 1900 / 1900 200 / 200
Balance -150 / -150 -1660 / -1660 -200 / -200
Physical Exam
Physical Exam
Gen: NAD, AAOx3
HEENT: NC/AT, sclera anicteric
Neck: No JVD
CV: irregularly irregular
Lungs: Crackles R>L, on midflow O2
Abd: S/ND
Ext: 1-2+ pitting LE edema
Skin: Warm, dry
Neuro: Non-focal
[2023-11-12 09:13] LABS: Glucose - Point of Care 151 mg/dl (70-99)
[2023-11-12] MEDS: DECADRON 6 MG IV (10:55)
[2023-11-12 11:37] LABS: Glucose - Point of Care 206 mg/dl (70-99)
--- NOTE | 2023-11-12 11:43 | W.PN.PUL3 ---
Today's Communication / Plan
-
Start IV dexamethasone. Slow taper going forward.
Continue to hold antibiotics
Continue oral diuresis for now
Monitor blood sugars
May need to consider right heart catheterization if there is no improvement
Continue high flow oxygen, wean down as able.
Assessment
-
83-year-old man with extensive past medical history. Recently discharged from the hospital, at that time he was admitted with similar complaints of worsening shortness of breath and hypoxemia. He was treated with IV diuretics also he was given
high-dose of the steroids. At that time chest x-ray clear prior to discharge. Plan was to discharge steroids for anti-inflammatory properties, patient is reluctant to use systemic prednisone.
He did complete a course of Zosyn as well. He was discharged on 1 L of supplemental oxygen.
Comes back with worsening shortness of breath and hypoxemia up to requiring high flow oxygen.
Chest x-ray abnormal after complete clearance prior to discharge.
-
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
of gout, BPH
Impression:
#Acute respiratory failure with hypoxia-currently on high flow oxygen.
#Bilateral infiltrates-right greater than left. Possibly inflammatory pneumonitis versus pulmonary edema. Less likely infectious.
Chest x-ray 11/10/2023 improved from 10/25/2023.
#Acute on chronic anemia-no evidence for bleeding.
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
With proBNP significantly elevated component of volume overload also possible
# Sacral decubitus ulcer present on admission.
#Hx of asthma/copd not in an acute exacerbation
#Hx of ABELARDO on auto-BiPAP
#History of bronchiectasis on vest therapy at home
Plan:
Patient transferred to the critical care unit due to increased work of breathing and hypoxemic respiratory failure on HFO2 60%.
Recently discharged from the hospital with similar complaints and improved after ABX and systemic steroids.
He was treated with a full course of Zosyn and also he was given high-dose of steroids for possible inflammatory pneumonitis during last admission.
Latest chest x-ray in the system 11/03/2023 showed almost complete resolution of infiltrates prior to discharge.
He was discharged on 1 L of supplemental oxygen.
-
Remains on high flow oxygen 11/12/2023.
Currently back on high flow oxygen-60% FiO2.
Chest x-ray with increased interstitial markings bilaterally-right greater than left.
Appears to be responsive to steroids.
Currently no strong evidence for infection. Procalcitonin is slightly elevated-not valid inpatient with elevated creatinine and BUN at this point
Afebrile/chronic leukocytosis is not change.
Agree with discontinuation of antibiotics and observe
-
CT of the chest ordered by nh 11/12/2023: Reviewed showed extensive bilateral groundglass opacities. Bilateral small pleural effusions. Differential diagnosis continues to be pulmonary edema versus inflammatory pneumonitis.
Discussed with nephrology given stability and weight felt that probably volume overload not playing significant role. Difficult to assess clinically.
-
Case again discussed with specialist and primary team.
Will start a trial of IV corticosteroids. 6 mg of dexamethasone IV now and then 4 IV Q8.
If there is no improvement with this, right heart catheterization may be needed if there is significant volume overload dialysis may be needed.
-
Continue to hold momelotinib -review adverse effect profile. No mention for interstitial lung pneumonia but increased risk of respiratory failure and pneumonia. states the patient has not received since prior admission.
Patient also on amiodarone 200 mg daily-this dose usually does not cause pulmonary toxicity. May need to consider discontinuation.
-
Continue to follow hemoglobin.
To get transfused on 11/12/2023.
-
History of COPD/bronchiectasis: Not bronchospastic on exam
Okay to continue with nebulizers, budesonide and DuoNebs.
Chronic kidney disease creatinine 3.8/BUN 119.
Nephrology following-correspondence reviewed
Back on oral Lasix.
They have discussed dialysis in the past.
Follow blood sugar, particularly on IV corticosteroids.
Insulin supplementation as needed
-
Sacral decubitus ulcers-local care
Nutritional support as able
-
Prior history of obstructive sleep apnea on BiPAP 05/07-currently on hold due to increased oxygen requirement
Outpatient follow-up with Dr. Camara after discharge.
updated by Dr. Rivera 11/12/2023 per
Patient has been transferred out of the critical care unit. Pulmonary will continue to follow.

Data:
CXR 10-24-2023:
The heart size is within the limits of normal.
There are bilateral airspace and interstitial infiltrates, right greater than left, consistent with diffuse pneumonia.
Regional skeleton intact.
TTE 10-25-2023:
Normal left ventricular wall thickness.
Normal left ventricular chamber size.
Mildly reduced left ventricular systolic function.
Left ventricular ejection fraction is 44% by Anaya's method.
Global hypokinesis, more prominent in the mid and basal segments of the
anterolateral wall.
Normal right ventricular size and function.
Mitral valve opens normally.
Mild to moderate mitral regurgitation.
Trace to mild aortic regurgitation.
Mild tricuspid regurgitation.
The IVC is of normal size and demonstrates normal respiratory variation.
Normal pericardium without effusion.
No significant change noted from 09/2023
Subjective Data
-
Date of Service:
Date of Service: November 12, 2023
Chief Complaint: Pulmonary Follow Up (Hypoxemic respiratory failure-abnormal CT chest)
Subjective:
Patient offers no new complaints.
Remains on high flow oxygen.
Continues to report exertional dyspnea with any activity
Denies significant hemoptysis or phlegm production
Denies abdominal pain or back pain
Review of Systems
General: Fever (n)
Cardiopulmonary: Dyspnea, Dyspnea on Exertion and Chest Pain
GI: Abdominal Pain (n) and Nausea (n)
Neuro: Headache (n)
Objective Data
Data Reviewed
Vital Signs / I&O / Oxygen:
Vital Signs
Temp Pulse Resp BP Pulse Ox
97.5 F 104 30 107/78 94
11/12/23 07:48 11/12/23 08:00 11/12/23 08:00 11/12/23 08:00 11/12/23 11:38
Intake and Output
11/11/23 11/12/23 11/13/23
06:59 06:59 06:59
Intake Total 50 / 50 240 / 240
Output Total 200 / 200 1900 / 1900 200 / 200
Balance -150 / -150 -1660 / -1660 -200 / -200
SaO2 94
Nasal Cannula flow liters per 50
minute
Physical Exam
General: Respiratory Distress (n) and Comfortable
HEENT: Normocephalic
Cardiovascular: S1-S2 and Regular Rhythm
Respiratory: Crackles (bases)
GI: Soft and Non Distended
Neurology: Awake and Alert
Skin: Warm
Labs/Micro/Reports
Lab Data
11/12/23 05:43
11/12/23 05:43
Microbiology
11/11/23 00:17 Blood/Venous Blood Culture - Preliminary
No Growth in 24 hours- Final report to follow
11/10/23 23:47 Blood/Venous Blood Culture - Preliminary
No Growth in 24 hours- Final report to follow
[2023-11-12] MEDS: NOVOLOG FLEXPEN 10 UNITS SC ×2 (12:14→17:35)
[2023-11-12] MEDS: NOVOLOG FLEXPEN-LOW RESISTANCE 2 UNITS SC ×2 (12:15→17:34)
--- NOTE | 2023-11-12 12:25 | PTCARENOTE ---
1 unit of blood started per current order with blood warmer
--- NOTE | 2023-11-12 14:56 | PTCARENOTE ---
patient transfer to room 3341 via bed. pt on High Flow ; transfer via bed . AAO x3. Blood infusing
--- NOTE | 2023-11-12 15:00 | PTCARENOTE ---
Received patient in bed from ICU. Blood transfusing. L AC IV bleeding and pulled, moved blood transfusion to R AC IV. Patient with c/o MINOR. Sats 95% at rest on hiflow, 86% when talking a lot. NSR on monitor. Patient making needs known. Will closely
monitor.
[2023-11-12 17:16] LABS: Glucose - Point of Care 230 mg/dl (70-99)
[2023-11-12] MEDS: LASIX 80 MG IV (17:31)
[2023-11-12] MEDS: NOVOLOG FLEXPEN SC ×2 (17:31)
[2023-11-12] MEDS: DECADRON 4 MG IV (17:31)
[2023-11-12] MEDS: FEOSOL 325 MG PO (17:33)
[2023-11-12] MEDS: COUMADIN 2 MG PO (17:33)
[2023-11-12] MEDS: CRESTOR 5 MG PO (17:33)
[2023-11-12] MEDS: PROSCAR 5 MG PO (17:33)
[2023-11-12] MEDS: TOPROL XL 12.5 MG PO (17:34)
[2023-11-12 21:52] LABS: Glucose - Point of Care 230 mg/dl (70-99)
[2023-11-12] MEDS: LANTUS 0.119999999999999996 UNITS SC (22:30)
[2023-11-13] VITALS (19 sets, daily range): BP systolic 116–135; BP diastolic 43–106; PULSE 2–73; O2SAT 95; BMI 22.8
[2023-11-13] MEDS: DECADRON 4 MG IV ×3 (00:01→17:40)
--- NOTE | 2023-11-13 04:06 | PTCARENOTE ---
Pt making needs known, using call gibbons appropriately. OOB with assistx1 to bedside commode. SaO2 dropped to 84% following ambulation, but pt recovered to 94% without specific intervention. Maintained on high flow.
[2023-11-13 06:15] LABS: % Basophils 0.1 % (0-2); % Immature Granulocytes 2.5 % (0-0.5); % Lymphocytes 1.7 % (20.5-51.1); % Monocytes 0.5 % (1.7-9.3); % Neutrophils 95.2 % (42.2-75.2); Absolute Immature Granulocytes 0.4 10^3/uL (0-0.05); Absolute Lymphocytes 0.2 10^3/uL (1.2-3.4); Absolute Monocytes 0.1 10^3/uL (0.1-0.6); Absolute Neutrophils 13.1 10^3/uL (1.4-6.5); Mean Corp Hgb Conc. 31.7 g/dL (33.0-37.0); Mean Corpuscular Hgb 28.7 pg (27.0-31.0); Mean Corpuscular Volume 90.6 fL (80.0-94.0); Nucleated Red Blood Cells % 0.2 % (-); Platelet Count 120 10^3/uL (130-400); Red Blood Cell Count 2.23 10^6/uL (4.70-6.10); Red Cell Dist. Width 22.9 % (11.5-14.5); White Blood Cell Count 13.8 10^3/uL (4.8-10.8)
[2023-11-13 06:19] LABS: Hemoglobin 6.4 g/dL (13.0-18.0)
[2023-11-13 06:20] LABS: Hematocrit 20.2 % (39.0-52.0)
[2023-11-13 06:28] LABS: INR 3.81; PT 37.6 Sec (11.4-14.6)
--- NOTE | 2023-11-13 06:36 | W.PN.UPDATE ---
Update Note
Progress Note Update
hgb level 6.4 this am. No sign of bleeding noted. Vital sign within normal limit. One unit of blood was ordered.
[2023-11-13 06:58] LABS: Blood Urea Nitrogen 131 mg/dl (9-20); Calcium 7.9 mg/dl (8.4-10.2); Carbon Dioxide 23 mmol/L (22-30); Chloride 112 mmol/L (98-107); Estimated Creatinine Clearance 15 ml/min; Glucose 161 mg/dl (70-99); Potassium 4.6 mmol/L (3.5-5.1); Sodium 142 mmol/L (135-145); eGFR 14.68
[2023-11-13] MEDS: PULMICORT 0.5 MG INH ×2 (07:27→19:34)
[2023-11-13] MEDS: DUONEB 3 ML INH ×2 (07:27→19:34)
[2023-11-13 07:40] LABS: Glucose - Point of Care 194 mg/dl (70-99)
--- NOTE | 2023-11-13 07:45 | PN.DE.MGMTRT ---
Insulin Management
- -
11/13/2023: Diabetes Management Follow up:
Pt readmitted 11/09 for acute respiratory hypoxia after a lengthy hospitalization 10/23 to 11/05 with Acute Hypoxic respiratory failure 2/2 to pneumonia +/- Interstitial Pneumonitis in setting of Momelotinib. PMH: CKD4, HFrEF, CLL/myelofibrosis, anemia
of chronic disease, PAFib, CAD, COPD, HTN, DLD, recent C-Diff, BPH
Current A1C 4.8%, Cr 3.9, eGFR 14.68.
Pt states he has no known hx of Diabetes Mellitus but has taken insulin at home in the past and has working glucose monitor.
Pt awake, alert, oriented x3, sitting up in bed, offers no complaints, able to discuss diabetes mgt. States prior to this admission he has been monitoring his blood sugars before each meal and has noted range of 80-150 in morning and higher glucose
level in the evening. States he has been holding premeal insulin if blood sugar is <150 but consistently taking the Lantus every night.
Dexamethasone increased to 4 mg Q 8 hours.
Current Diabetes regimen includes: Farxiga 5 mg daily, Lantus 12 units @ HS and NovoLog 10 units AC with low corrective. Glucose range yesterday 42 fasting to 230. HS lantus decreased to 12 units last evening, fasting glucose today 161 venous,
194 POC. Will increase HS lantus to 14 units and AC novolog to 12 units.
Diet changed to include 1800 calories in addition to cholesterol lowering, 2 GM sodium and 2 GM potassium.
Nurse to let me know pre lunch glucose before administering increased AC novolog dose.
Diabetes plan of care discussed with pt and Pt's Nurse.
Diabetes History
- -
Type of Diabetes: 2
Pre-Admission Diabetes Regimen
11/13/23
06:01
Creatinine 3.9 H
Lab Results
Hemoglobin A1c 4.8 % (4.0-5.6) 11/11/23 04:00
Insulin Pump Settings
IP Diabetes Regimen
11/12/23 11/12/23 11/12/23
09:02 11:26 17:05
Glucose
POC Glucose 151 H 206 H 230 H
11/12/23 11/13/23 11/13/23
21:39 06:01 07:07
Glucose 161 H
POC Glucose 230 H 194 H
Meal type: Lunch
Meal type: Breakfast
Amount consumed: 100%
Amount consumed: 100%
Patient Education
[2023-11-13] MEDS: NOVOLOG FLEXPEN 10 UNITS SC (08:20)
[2023-11-13] MEDS: NOVOLOG FLEXPEN-LOW RESISTANCE 1 UNITS SC ×2 (08:20→18:27)
[2023-11-13] MEDS: LASIX 80 MG IV ×2 (08:22→17:40)
[2023-11-13] MEDS: FARXIGA 5 MG PO (08:22)
[2023-11-13] MEDS: NITRO-DUR 0.599999999999999978 MG TRANSDERM (08:22)
[2023-11-13] MEDS: SODIUM BICARBONATE 650 MG PO ×3 (08:23→19:55)
[2023-11-13] MEDS: ASPIR LOW (ENTERIC COATED) 81 MG PO (08:23)
[2023-11-13] MEDS: PACERONE 200 MG PO (08:23)
[2023-11-13] MEDS: MUCINEX 600 MG PO ×2 (08:23→19:55)
--- NOTE | 2023-11-13 08:47 | W.PN.HOSP.TC ---
Today's Communication/Plan
-
Hold warfarin
Transfuse
Diuresis
Assessment / Plan
Assessment / Plan
Gen-AAOx3, NAD
HEENT-NC, AT, anicteric, clear oral mm
Neck-supple
CV-reg, no M, +S1/S2
Lungs-bilateral rales, rhonchi
Abd-soft, NT, ND
Ext-no edema
Musculoskeletal-no cyanosis, clubbing
Skin-warm and dry
Neuro-grossly non-focal
Psych-calm, cooperative
Acute on chronic hypoxic respiratory failure -likely multifactorial etiology including acute on chronic heart failure, interstitial lung disease. Has underlying COPD, ABELARDO. Currently on high flow nasal cannula oxygen, wean down as able. Not on
home oxygen.
Clinically doubt pneumonia. Off antibiotics.
Discussed with pulmonary, plan to start systemic steroids for interstitial lung disease. Consider discontinuing amiodarone if able.
Acute on chronic heart failure with reduced EF exacerbation -very difficult to assess true volume status. Cardiology consulted. Discharged last week off diuretics. Continue IV Lasix. Weight coming down. Ideally needs right heart catheterization
if cardiology agrees.
Acute on chronic anemia -baseline hemoglobin averages 8-9, admission hemoglobin 6.4. Briefly hemoglobin improved to 7.1 on November 10. Hemoglobin down to 6.4 again today. Getting 3rd unit of blood today. Must use irradiated, leuko reduced. Does not
need to be CMV negative, discussed with Dr. Alexis.
Gets Aranesp q3 weeks by Dr Alexis, due for next dose this . We are unable to give Aranesp here in the hospital as it is nonformulary. Discussed with patient and .
CLL/MGUS/myelofibrosis -was on Momelotinib.
CKD 4 -renal function stable.
Paroxysmal atrial fibrillation -on warfarin, amiodarone. INR 3.8 today. Hold warfarin tonight, INR in the morning.
CAD -stable.
COPD without exacerbation
DM2 without hypoglycemia -he is on Lantus 15 units at bedtime, Humalog 12 units AC at home, Farxiga 5 mg daily. 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
Essential hypertension - stable.
Hyperlipidemia -on rosuvastatin.
History of CDAD -resume vancomycin taper, currently on 1 tablet every 72 hours x 7 days.
BPH
Full-thickness coccyx/perineal ulcer, likely healing PI stage 3
Full code
Anticipated Discharge: > 48 hours
Subjective/Interval History
-
Date of Service: November 13, 2023
Patient seen and examined. No new complaints. Still with dyspnea on exertion.
Objective Data
-
Labs:
Laboratory Results
11/13/23
06:01
WBC 13.8 H
Hgb 6.4 L*
Hct 20.2 L*
Plt Count 120 L D
PT 37.6 H
INR 3.81
Sodium 142
Potassium 4.6
Chloride 112 H
Carbon Dioxide 23
BUN 131 H*
Creatinine 3.9 H
Glucose 161 H
Calcium 7.9 L
Vital Signs:
Vital Signs
Temp Pulse Resp BP Pulse Ox
97.6 F 70 18 120/106 93
11/13/23 07:25 11/13/23 07:30 11/13/23 07:30 11/13/23 04:00 11/13/23 07:30
I&O
11/12/23 11/13/23 11/14/23
06:59 06:59 06:59
Intake Total 240 / 240 745 / 745
Output Total 1900 / 1900 3200 / 3200 200 / 200
Balance -1660 / -1660 -2455 / -2455 -200 / -200
Review of Systems
-
History Source: Patient
All other systems: Reviewed and negative
--- NOTE | 2023-11-13 09:26 | W.PN.PUL.V3 ---
Today's Communication / Plan
-
Attempt to wean oxygen
Diuresis as tolerated
Nephrology consultation
Consider right heart catheterization if intravascular volume status unclear
High-dose steroids
Assessment
-
83-year-old man with extensive past medical history. Recently discharged from the hospital, at that time he was admitted with similar complaints of worsening shortness of breath and hypoxemia. He was treated with IV diuretics also he was given
high-dose of the steroids. At that time chest x-ray clear prior to discharge. Plan was to discharge steroids for anti-inflammatory properties, patient is reluctant to use systemic prednisone.
He did complete a course of Zosyn as well. He was discharged on 1 L of supplemental oxygen.
Comes back with worsening shortness of breath and hypoxemia up to requiring high flow oxygen.
Chest x-ray abnormal after complete clearance prior to discharge.
-
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
of gout, BPH
Impression:
#Acute respiratory failure with hypoxia-currently on high flow oxygen.
#Bilateral infiltrates-right greater than left. Possibly inflammatory pneumonitis versus pulmonary edema. Less likely infectious.
Chest x-ray 11/10/2023 improved from 10/25/2023.
#Acute on chronic anemia-no evidence for bleeding.
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
With proBNP significantly elevated component of volume overload also possible
# Sacral decubitus ulcer present on admission.
#Hx of asthma/copd not in an acute exacerbation
#Hx of ABELARDO on auto-BiPAP
#History of bronchiectasis on vest therapy at home
Plan:
Respiratory decompensation fairly rapid after discharge-possibly related to steroid responsive interstitial lung disease flare versus fluid overload or combination of both
Supplemental oxygen as needed-was discharged on 1 L 11/06/2023
BiPAP/noninvasive ventilation if needed-was on BiPAP 12/5 cm with a history of obstructive sleep apnea
High flow oxygen-attempt to wean
High-dose steroids-process appears to be steroid responsive
Mucolytic's
Aspiration precautions
Nebulizers-budesonide and DuoNebs
CT chest 11/12/2023 summarized below
Currently no strong evidence for infection. Procalcitonin is slightly elevated-not valid inpatient with elevated creatinine and BUN at this point
Observe off antibiotics
Diuresis as tolerated
Monitor renal function, electrolytes, intake/output, lower extremity edema and weight
Replace electrolytes as needed
Previously followed by nephrology and dialysis was considered for a while
Consider right heart catheterization if intravascular volume status unclear
Amiodarone 200 mg daily-this dose usually does not cause pulmonary toxicity, however, will monitor closely
Continue to hold momelotinib -review adverse effect profile. No mention for interstitial lung pneumonia but increased risk of respiratory failure and pneumonia. states the patient has not received since prior admission.
Follow hemoglobin-currently 6.4
Monitor thrombocytopenia
Transfuse as needed
Follow blood sugar, particularly on IV corticosteroids.
Insulin supplementation as needed
Sacral decubitus ulcers-local care
DVT prophylaxis
Nutrition
Early mobilization/physical therapy
Outpatient follow-up with Dr. Camara after discharge.
updated by Dr. Rivera 11/12/2023 per
Pulmonary status continues to improve
Oxygenation improved as well as recovery after exertion-now on room air
Check rest and exercise oximetry
BiPAP 12/5 cm with supplemental oxygen continues-tolerating well
Incentive spirometry
Vest therapy will continue
Mucus clearing devices
Mucinex 600 mg twice daily
Follow chest x-ray-11/03/2023-significant interval improvement suggesting improved pneumonia
Decadron 3 mg orally continues-decrease to 2 mg orally daily with slow taper-note the patient reports having a reaction to prednisone in the past-slow reduction.
He reported Prednisone reaction is leg swelling and hyperglycemia-he has used prednisone multiple times without severe adverse reactions
Aspiration precautions
Cultures reviewed
Follow leukocytosis
Completed course of Zosyn
Momelotinib - on hold rule out drug-induced pneumonitis-on the steroids as above.
Zosyn continues
Vancomycin orally continues
Patient also on amiodarone 200 mg daily-this dose usually does not cause pulmonary toxicity
Continue to follow hemoglobin.
Transfuse as needed..
Nephrology following-correspondence reviewed
Lasix held
They have discussed dialysis-patient leaning towards excepting dialysis if needed
Follow blood sugar
Insulin supplementation as needed
DVT prophylaxis-on warfarin
Nutrition
Early mobilization/physical therapy
Outpatient pulmonary tnyfzo-dw-il states she follows up at [facility] -Dr. Parson told to obtain films on disc to bring to his next appointment
Patient usually follows up with Dr. Camara.

Data:
CXR 10-24-2023:
The heart size is within the limits of normal.There are bilateral airspace and interstitial infiltrates, right greater than left, consistent with diffuse pneumonia.Regional skeleton intact.
CT of the chest ordered by ar 11/12/2023: Reviewed showed extensive bilateral groundglass opacities. Bilateral small pleural effusions. Differential diagnosis continues to be pulmonary edema versus inflammatory pneumonitis.
Discussed with nephrology given stability and weight felt that probably volume overload not playing significant role. Difficult to assess clinically.
TTE 10-25-2023:Normal left ventricular wall thickness.Normal left ventricular chamber size.
Mildly reduced left ventricular systolic function.Left ventricular ejection fraction is 44% by Anaya's method. Global hypokinesis, more prominent in the mid and basal segments of the anterolateral wall. Normal right ventricular size and function.
Mitral valve opens normally. Mild to moderate mitral regurgitation. Trace to mild aortic regurgitation. Mild tricuspid regurgitation. The IVC is of normal size and demonstrates normal respiratory variation. Normal pericardium without effusion.
significant change noted from 09/2023
Subjective Data
-
Date of Service:
Date of Service: November 13, 2023
Chief Complaint: Pulmonary Follow Up (Hypoxemic respiratory failure-abnormal CT chest) and Dyspnea Follow Up
Subjective:
Feels a little better, still on high flow oxygen, has some chest congestion, productive cough, no chest pain or abdominal pain
Review of Systems
General: Other (Per HPI)
Objective Data
Data Reviewed
Vital Signs / I&O:
Vital Signs
Temp Pulse Resp BP Pulse Ox
97.6 F 70 18 120/106 93
11/13/23 07:25 11/13/23 07:30 11/13/23 07:30 11/13/23 04:00 11/13/23 07:30
Intake and Output
11/12/23 11/13/23 11/14/23
06:59 06:59 06:59
Intake Total 240 / 240 745 / 745
Output Total 1900 / 1900 3200 / 3200 200 / 200
Balance -1660 / -1660 -2455 / -2455 -200 / -200
SaO2: 93
Nasal Cannula flow liters per minute: 40
Physical Exam
General: Respiratory Distress (n) and Comfortable
HEENT: Normocephalic, Anicteric and Moist Mucous Membranes
Cardiovascular: Regular Rhythm
Respiratory: Crackles (bases), Rhonchi (Few expiratory), Non-Labored Respirations, Accessory Resp Muscle Use and Stridor (n)
GI: Soft and Non Distended
Neurology: Awake, Alert and No Motor Deficits
Skin: Warm, Good Color, Cyanosis (n), Jaundice (n) and Rash (n)
Labs/Micro/Reports
Lab Data
11/13/23 06:01
11/13/23 06:01
Laboratory Results
11/13/23
06:01
PT 37.6 H
INR 3.81
Microbiology
11/11/23 00:17 Blood/Venous Blood Culture - Preliminary
No Growth in 48 hours- Final report to follow
11/10/23 23:47 Blood/Venous Blood Culture - Preliminary
No Growth in 48 hours- Final report to follow
--- NOTE | 2023-11-13 10:56 | W.PN.CARDCBS ---
Today's Communication / Plan
-
Agree with IV diuresis, will defer dosing nephrology
Hold warfarin for supratherapeutic INR
Trial Tubigrip's
Impression / Plan
-
PCP: Rob Santos
Outpatient Ground Water Technician: BRIGITTE Snow
Impression:
Presents 11/10/2023 with shortness of breath
Acute hypoxic respiratory failure
Pulmonary edema
Acute on chronic heart failure with reduced ejection fraction
GER, on CKD
Recent admission w/ d/c 11/06/23 for acute hypoxic respiratory failure due to pneumonia/interstitial pneumonitis
History of C. difficile (on vancomycin)
Chronic heart failure with reduced ejection fraction
Recent multiple hospitalizations including proctitis and pneumonia in June 2023
Recent prolonged admission following outpatient cardiac catheterization 05/10 - 05/21/2023
Coronary artery disease status post prior ostial LAD PCI in 2015 with recent cardiac catheterization noting diffusely positive IFR of the LAD back to the left main
Prior ischemic cardiomyopathy with LVEF of 25 to 30%, most recently recovered to 50-55% on echo
History of NSVT last admission
Acute on CKD stage IIIb/marked proteinuria
CLL/MGUS/Chronic anemia�management per Dr. 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 Aranesp initiated 05/09/23 every 3 weeks.
Paroxysmal atrial fibrillation, on chronic anticoagulation with Coumadin [history of hemoptysis and hematuria on Xarelto in 2017. Declined Eliquis]
COPD, not on home oxygen
C diff diarrhea
Hypertension
Hyperlipidemia
Type 2 diabetes mellitus
Mild cognitive decline / Frailty
Obstructive sleep apnea
Gout hx
IgG deficiency hx
Prior hematuria in 2015/history of BPH
Echo 10/25/2023: EF 44%, global hypokinesis more prominent in mid and basal segments of anterior lateral wall. Mild to moderate MR. Mild AI. Mild TR.
Echo 09/02/23: EF 45-50% with mild global hypokinesis and more notable mid to apical anterolateral. EF 50-55% visual by echo Jun 2023.
Echocardiogram�from January 22, 2023 showed top normal LV size with low normal or mildly globally reduced systolic function, LVEF of 50 to 55%, thickened mitral valve leaflets with MAC and mild MR, aortic sclerosis with mild AI, normal right heart
with normal PA systolic pressure, dilated aorta with maximum diameter of 4.4 cm.
Pharmacologic nuclear stress test�on January 2023 showed abnormal perfusion imaging with small, mild apical inferior and apical lateral defect suggestive of mild ischemia.� No evidence of scar.� Systolic function was mildly reduced at 42% on stress
test.� Compared to prior study from 2020, apical lateral and apical inferior defects were present then but also inferior, mid inferior and inferolateral segments.� LVEF prior was 40%
Left heart catheterization�from July 28, 2015: Mild tapering of distal left main.� Complex high-grade stenosis from proximal to mid LAD involving the origin of a very large diagonal branch.� The mid LAD beyond the diagonal has a 60% stenosis and
60% distal stenosis.� Nonobstructive disease in the other arteries.� LV gram suggested an LVEF of 25 to 30%.� On August 01, 2015 he underwent a 3.0 x 28 mm Alpine Xience 5 drug-eluting stent to the ostial LAD
Left heart catheterization from May 10, 2023: LVEDP 14. Left main large vessel which gives rise to LAD and circumflex. 20% distal left main stenosis. Diffuse atherosclerotic in-stent restenosis up to 50% spanning ostial to mid LAD involving
origin of a very large diagonal branch. Mid LAD beyond diagonal branch has 50 to 60% stenosis and a focal 56% distal stenosis. iFR is grossly positive at 0.7 in the mid to distal LAD. 50 to 60% ostial diagonal stenosis. Circumflex is large with
bifurcating OM1 with 30 to 40% stenosis and diffuse atherosclerotic plaque. RCA is large dominant vessel moderately calcified with a high anterior origin from the aorta. Diffuse atherosclerotic plaque. Following this procedure patient was seen by
CT surgery and was deemed too high risk. Decision was made for medical therapy; could consider high risk PCI if fails medical therapy
Plan:
-Presents 11/10/23 with acute hypoxic respiratory failure requiring high flow oxygen
-Acute on chronic heart failure with reduced ejection fraction, proBNP greater than 27,000
-CKD stage IV. Creatinine running 3.9 which appears to be new baseline. Nephrology following.
-Agree with IV lasix
-Continue low-dose Toprol, Farxiga. Stage IV CKD prevents initiation of KYE/ARB/ARNI or Aldactone
-Paroxysmal atrial fibrillation, in AFib 11/12/23, but now back in sinus rhythm
-Monitor on tele
-Continue low-dose beta-royce and amiodarone
-On chronic anticoagulation with Coumadin. Hold warfarin today with supratherapeutic INR.
-Acute on chronic anemia. Hemoglobin noted to be 6.4 on admission. He was transfused 1 unit of blood on 11/11/2023. Repeat hemoglobin 6.8. Continue to monitor and trend
Progress Note - Ground Water Technician
Subjective
Date of Service: November 13, 2023
No acute overnight events. Downgraded to IMU. Still requiring mid flow O2. No short of breath at rest but tells me with ambulating to the commode he will experience dyspnea.
Objective
Labs:
11/13/23 06:01
11/13/23 06:01
Labs
Hgb 6.4 g/dL (13.0-18.0) L* 11/13/23 06:01
Hct 20.2 % (39.0-52.0) L* 11/13/23 06:01
Plt Count 120 10^3/uL (130-400) L D 11/13/23 06:01
PT 37.6 Sec (11.4-14.6) H 11/13/23 06:01
INR 3.81 11/13/23 06:01
Sodium 142 mmol/L (135-145) 11/13/23 06:01
Potassium 4.6 mmol/L (3.5-5.1) 11/13/23 06:01
BUN 131 mg/dl (9-20) H* 11/13/23 06:01
Creatinine 3.9 mg/dL (0.7-1.3) H 11/13/23 06:01
Glucose 161 mg/dl (70-99) H 11/13/23 06:01
Troponins
11/10/23
23:47
Troponin I 0.025
Vital Signs and I&O:
Vital Signs
Temp Pulse Resp BP Pulse Ox
97.6 F 70 18 120/106 93
11/13/23 07:25 11/13/23 07:30 11/13/23 07:30 11/13/23 04:00 11/13/23 09:26
Vital Signs
Temp Pulse Resp BP Pulse Ox
97.6 F 70 18 120/106 93
11/13/23 07:25 11/13/23 07:30 11/13/23 07:30 11/13/23 04:00 11/13/23 09:26
Intake & Output
11/11/23 11/12/23 11/13/23 11/14/23
06:59 06:59 06:59 06:59
Intake Total 50 / 50 240 / 240 745 / 745
Output Total 200 / 200 1900 / 1900 3200 / 3200 200 / 200
Balance -150 / -150 -1660 / -1660 -2455 / -2455 -200 / -200
Physical Exam
Physical Exam
Gen: NAD, AAOx3
HEENT: NC/AT, sclera anicteric
CV: RRR, NL s1/s2
Lungs: Crackles at the bases on mid flow O2
Abd: S/ND
Ext: 1-2+ pitting LE edema
Skin: Warm, dry
Neuro: Non-focal
--- NOTE | 2023-11-13 11:14 | W.PN.NEPH.PH ---
Today's Communication / Plan
-
cont diuresis
follow labs
Assessment/Plan
-
Chronic kidney disease stage IV
Acute on chronic hypoxic respiratory
COPD/interstitial lung disease/recent pneumonia
History of congestive heart failure
Anemia
CLL/MGUS/myelofibrosis
Type 2 diabetes
Hypertension
BPH
History of C. difficile (on vancomycin)
Metabolic acidosis
Plan:
-Kidney function is at baseline but with profound azotemia
-maintain lasix 80BID nonoliguric and weights down
-Maintain oral bicarbonate for metabolic acidosis
-Hemodynamically stable
-Anemia worsening and will likely require transfusion
steroids for possible pneumonitis per pulm
-If respiratory status does not improve we may require right heart cath to accurately assess volume status
-If patient remains hypervolemic despite aggressive diuresis we may need to transition to dialysis
long discussion with pt about high risk of dialysis this admit however he is focused on getting his OP f/u with other providers to rearrange and until then would not want to start
He has specific questions about exact schedule of HD and transport-tried to discuss with him that with out initiating HD we would not have any of this info
however pt is adamant to know before he commits to HD-d/w nursing to inform spring encaser to d/w pt
high risk encounter
-
-
Date of Service: November 13, 2023
CC / HPI / ROS
-
Chief Complaint:
CKD stage IV
History of Present Illness:
Hemodynamically stable on amlodipine
Creatinine stable at 3.9 but with BUN in excess of 131
Anemia worsening 6.4 s/p PRBC 11/11
Review of Systems:
Nonoliguric
Weights down
Remains on high flow oxygen 70% and sob with minimal exertion
Labs
-
Labs:
WBC 13.8 10^3/uL (4.8-10.8) H 11/13/23 06:01
RBC 2.23 10^6/uL (4.70-6.10) L 11/13/23 06:01
Hgb 6.4 g/dL (13.0-18.0) L* 11/13/23 06:01
Hct 20.2 % (39.0-52.0) L* 11/13/23 06:01
Plt Count 120 10^3/uL (130-400) L D 11/13/23 06:01
Sodium 142 mmol/L (135-145) 11/13/23 06:01
Potassium 4.6 mmol/L (3.5-5.1) 11/13/23 06:01
Chloride 112 mmol/L (98-107) H 11/13/23 06:01
Carbon Dioxide 23 mmol/L (22-30) 11/13/23 06:01
BUN 131 mg/dl (9-20) H* 11/13/23 06:01
Creatinine 3.9 mg/dL (0.7-1.3) H 11/13/23 06:01
eGFR 14.68 11/13/23 06:01
Glucose 161 mg/dl (70-99) H 11/13/23 06:01
Calcium 7.9 mg/dl (8.4-10.2) L 11/13/23 06:01
Phosphorus 4.9 mg/dl (2.5-4.5) H 11/11/23 06:36
Rru-R-Jayidsflkyx Pept > 11079 pg/ml 11/10/23 23:47
Albumin 2.9 g/dl (3.5-5.0) L 11/10/23 23:47
Physical Exam
-
Vital Signs:
Vital Signs
Temp Pulse Resp BP Pulse Ox
98.2 F 70 18 120/106 93
11/13/23 11:07 11/13/23 07:30 11/13/23 07:30 11/13/23 04:00 11/13/23 09:26
Cardiovascular:: Regular rate and rhythm
Lung Excursion:: Abnormal (decreased)
Abdomen:: Nontender and Soft
Extremity Edema:: +1: Bilateral:
Crespo Catheter: No
--- NOTE | 2023-11-13 11:46 | PTCARENOTE ---
Addendum entered by Lucy Luong 11/13/23 13:44:
Blood transfusion completed, pt tolerated well.
Original Note:
Unit of PRBC's initiated per orders, infusing with blood warmer. Pt tolerating well.
[2023-11-13 12:27] LABS: Glucose - Point of Care 290 mg/dl (70-99)
[2023-11-13] MEDS: NOVOLOG FLEXPEN-LOW RESISTANCE 3 UNITS SC (13:33)
[2023-11-13] MEDS: NOVOLOG FLEXPEN 12 UNITS SC ×2 (13:33→18:27)
--- NOTE | 2023-11-13 15:30 | PN.CDI ---
CDI
- -
CDI:
Physician Documentation Request
Admit Date: 11/11/23 02:59
Dear Doctor Sarita,
Patient admitted with acute on chronic systolic CHF.
11/12 PN, 'Acute on chronic hypoxic respiratory failure....Not on home oxygen.'
Based on the above, please clarify in your note the acuity of hypoxic respiratory failure:
Acute hypoxic respiratory failure
No change in documentation
Other (please specify)
Use of terms such as suspected, likely, concern for, or probable (associated with a specific diagnosis that is being evaluated, monitored, or treated as if it exists) are acceptable and can be coded in the inpatient setting, when documented at the
time of discharge.
Thank you,
Marisa TALAVERA,RN,CCDS
CDI Specialist
Available via [facility] text
Please use your independent medical judgment in providing your response.
--- NOTE | 2023-11-13 15:30 | CM ---
Patient with Dx Acute on chronic hypoxic respiratory failure, anemia. O2 12L midflow. Transfusion today. Receiving IV Decadron. PT & OT recommend skilled rehab.
Request from Dr Thomas through the nurse to speak to patient about his questions/concerns about outpatient dialysis.
Message to Dr Thomas with update after patient seen; we went over all his HD schedule and transport questions. She will speak to patient tomorrow.
Met with patient who says he is agreeing to outpatient dialysis. He would like to go to [facility] for HD. Answered his questions about HD Schedules, with considerations of time of day if [facility] Transport would be needed. His and
daughter would primarily provide transport and he may want to have [facility] Transport as a backup- explained family would need to submit application. He seemed overly concerned about fitting in his other outpatient appointments- i explained to him he
would probably need to schedule these on non dialysis days.
CM will need to follow patient's progress with PT/OT and discuss rehab with patient.
Plan referral to [facility] once decision for HD is confirmed.
[2023-11-13] MEDS: PROSCAR 5 MG PO (17:41)
[2023-11-13] MEDS: CRESTOR 5 MG PO (17:41)
[2023-11-13] MEDS: FEOSOL 325 MG PO (17:41)
[2023-11-13] MEDS: TOPROL XL 12.5 MG PO (17:41)
[2023-11-13 18:17] LABS: Glucose - Point of Care 165 mg/dl (70-99)
--- NOTE | 2023-11-13 20:08 | PTCARENOTE ---
Caring for patient overnight. aaox3, denies pain. C/o SOB when moving, feels comfortable when still. Continues on 12LMF 96%. Crackles/coarse/exp wheeze. NSR BBB >QT. Urinal & BSC. BLE edema. NO other issues at this time. Will monitor.
[2023-11-13 21:44] LABS: Glucose - Point of Care 174 mg/dl (70-99)
[2023-11-13] MEDS: LANTUS 0.140000000000000013 UNITS SC (21:53)
[2023-11-14] VITALS (15 sets, daily range): BP systolic 107–134; BP diastolic 50–79; PULSE 2–63; BMI 22.1
[2023-11-14] MEDS: DECADRON 4 MG IV ×4 (01:05→23:04)
[2023-11-14 04:31] LABS: % Basophils 0.1 % (0-2); % Immature Granulocytes 2.4 % (0-0.5); % Lymphocytes 1.4 % (20.5-51.1); % Monocytes 0.7 % (1.7-9.3); % Neutrophils 95.4 % (42.2-75.2); Absolute Immature Granulocytes 0.4 10^3/uL (0-0.05); Absolute Lymphocytes 0.3 10^3/uL (1.2-3.4); Absolute Monocytes 0.1 10^3/uL (0.1-0.6); Absolute Neutrophils 16.8 10^3/uL (1.4-6.5); Hematocrit 24.3 % (39.0-52.0); Hemoglobin 7.5 g/dL (13.0-18.0); Mean Corp Hgb Conc. 30.9 g/dL (33.0-37.0); Mean Corpuscular Hgb 28.2 pg (27.0-31.0); Mean Corpuscular Volume 91.4 fL (80.0-94.0); Mean Platelet Volume 10.9 fL (7.4-10.4); Nucleated Red Blood Cells % 0.2 % (-); Platelet Count 119 10^3/uL (130-400); Red Blood Cell Count 2.66 10^6/uL (4.70-6.10); Red Cell Dist. Width 21.9 % (11.5-14.5); White Blood Cell Count 17.6 10^3/uL (4.8-10.8)
[2023-11-14 04:43] LABS: INR 2.92; PT 30.9 Sec (11.4-14.6)
[2023-11-14 04:55] LABS: Calcium 8.3 mg/dl (8.4-10.2); Carbon Dioxide 25 mmol/L (22-30); Chloride 109 mmol/L (98-107); Estimated Creatinine Clearance 14 ml/min; Glucose 184 mg/dl (70-99); Potassium 4.2 mmol/L (3.5-5.1); Sodium 142 mmol/L (135-145); eGFR 14.24
[2023-11-14 05:05] LABS: Blood Urea Nitrogen 137 mg/dl (9-20)
--- NOTE | 2023-11-14 05:13 | PTCARENOTE ---
Pt converted to afib last night around 0130. Asymptomatic, controlled 90's low 100's. bps stable. will monitor.
[2023-11-14 07:26] LABS: Glucose - Point of Care 219 mg/dl (70-99)
[2023-11-14] MEDS: DUONEB 3 ML INH ×2 (07:29→20:22)
[2023-11-14] MEDS: PULMICORT 0.5 MG INH ×2 (07:29→20:22)
--- NOTE | 2023-11-14 07:50 | PN.DE.MGMTRT ---
Insulin Management
- -
11/14/2023: Diabetes Management Follow up:
Pt readmitted 11/09 for acute respiratory hypoxia after a lengthy hospitalization 10/23 to 11/05 with Acute Hypoxic respiratory failure 2/2 to pneumonia +/- Interstitial Pneumonitis in setting of Momelotinib. PMH: CKD4, HFrEF, CLL/myelofibrosis, anemia
of chronic disease, PAFib, CAD, COPD, HTN, DLD, recent C-Diff, BPH
Current A1C 4.8%, Cr 4.0, eGFR 14.24.
Pt states he has no known hx of Diabetes Mellitus but has taken insulin at home in the past and has working glucose monitor.
Pt awake, alert, oriented x3, sitting up in bed, offers no complaints, able to discuss diabetes mgt. States prior to this admission he has been monitoring his blood sugars before each meal and has noted range of 80-150 in morning and higher glucose
level in the evening. States he has been holding premeal insulin if blood sugar is <150 but consistently taking the Lantus every night.
Dexamethasone continues at 4 mg Q 8 hours.
HS lantus increased to 14 units last HS and AC novolog increased to 12 units yesterday.
Current Diabetes regimen includes: Farxiga 5 mg daily, Lantus 14 units @ HS and NovoLog 12 units AC with low corrective. Glucose range yesterday 161 fasting to 290.
Will increase HS lantus to home dose of 15 units, check 3AM glucose and increase AC novolog to 13 units
Diet changed to include 1800 calories in addition to cholesterol lowering, 2 GM sodium and 2 GM potassium.
Diabetes plan of care discussed with pt and Pt's Nurse.
Diabetes History
- -
Type of Diabetes: 2
Pre-Admission Diabetes Regimen
11/14/23
04:15
Creatinine 4.0 H
Lab Results
Hemoglobin A1c 4.8 % (4.0-5.6) 11/11/23 04:00
Insulin Pump Settings
IP Diabetes Regimen
11/13/23 11/13/23 11/13/23
12:08 18:03 21:32
Glucose
POC Glucose 290 H 165 H 174 H
11/14/23 11/14/23
04:15 07:15
Glucose 184 H
POC Glucose 219 H
Meal type: Lunch
Amount consumed: 100%
Patient Education
--- NOTE | 2023-11-14 08:04 | W.PN.HOSP.TC ---
Addendum entered and electronically signed by Sergey Stein DO 11/14/23 13:21:
Correction: Acute hypoxic respiratory failure
Original Note:
Today's Communication/Plan
-
Continue diuresis
monitor renal function
Assessment / Plan
Assessment / Plan
Gen-AAOx3, NAD
HEENT-NC, AT, anicteric, clear oral mm
Neck-supple
CV-reg, no M, +S1/S2
Lungs-bilateral rales, rhonchi
Abd-soft, NT, ND
Ext-no edema
Musculoskeletal-no cyanosis, clubbing
Skin-warm and dry
Neuro-grossly non-focal
Psych-calm, cooperative
Acute on chronic hypoxic respiratory failure -likely multifactorial etiology including acute on chronic heart failure, interstitial lung disease. Has underlying COPD, ABELARDO. Oxygenation improving, now on mid flow oxygen. Wean down as able. Not on
home oxygen.
Clinically doubt pneumonia. Off antibiotics.
Getting systemic steroids for possible interstitial lung process as per pulmonary. Consider discontinuing amiodarone if able.
Acute on chronic heart failure with reduced EF exacerbation -very difficult to assess true volume status. Cardiology consulted. Discharged last week off diuretics. Continue IV Lasix. Weight coming down. Ideally needs right heart catheterization
if cardiology agrees. Weight is down to 70 kg.
Acute on chronic anemia -baseline hemoglobin averages 8-9, admission hemoglobin 6.4. Hemoglobin improved to 7.5 today, has had 3 units of blood transfused so far. Must use irradiated, leuko reduced. Does not need to be CMV negative, discussed
with Dr. Alexis.
Gets Aranesp q3 weeks by Dr Alexis, due for next dose this . We are unable to give Aranesp here in the hospital as it is nonformulary. Discussed with patient and .
CLL/MGUS/myelofibrosis -was on Momelotinib.
CKD 4 -creatinine relatively stable at 4.0.
Paroxysmal atrial fibrillation -on warfarin, amiodarone. Warfarin held last night for elevated INR, INR down to 2.9 today. Will resume warfarin tonight.
CAD -stable.
COPD without exacerbation
DM2 without hypoglycemia -he is on Lantus 15 units at bedtime, Humalog 12 units AC at home, Farxiga 5 mg daily. 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
Essential hypertension - stable.
Hyperlipidemia -on rosuvastatin.
History of CDAD -resume vancomycin taper, currently on 1 tablet every 72 hours x 7 days.
BPH
Full-thickness coccyx/perineal ulcer, likely healing PI stage 3
Full code
Anticipated Discharge: > 48 hours
Subjective/Interval History
-
Date of Service: November 14, 2023
Patient seen and examined. No new complaints.
Objective Data
-
Labs:
Laboratory Results
11/14/23
04:15
WBC 17.6 H
Hgb 7.5 L
Hct 24.3 L
Plt Count 119 L
PT 30.9 H
INR 2.92
Sodium 142
Potassium 4.2
Chloride 109 H
Carbon Dioxide 25
BUN 137 H*
Creatinine 4.0 H
Glucose 184 H
Calcium 8.3 L
Vital Signs:
Vital Signs
Temp Pulse Resp BP Pulse Ox
97.4 F 118 20 120/63 95
11/14/23 03:40 11/14/23 07:30 11/14/23 07:30 11/14/23 06:00 11/14/23 07:30
I&O
11/13/23 11/14/23 11/15/23
06:59 06:59 06:59
Intake Total 745 / 745 240 / 240
Output Total 3200 / 3200 2300 / 2300
Balance -2455 / -2455 -2059 / -2059
Review of Systems
-
History Source: Patient
All other systems: Reviewed and negative
[2023-11-14] MEDS: NOVOLOG FLEXPEN-LOW RESISTANCE 2 UNITS SC (09:11)
[2023-11-14] MEDS: NOVOLOG FLEXPEN 13 UNITS SC ×3 (09:12→17:12)
[2023-11-14] MEDS: NITRO-DUR 0.599999999999999978 MG TRANSDERM (09:13)
[2023-11-14] MEDS: MUCINEX 600 MG PO ×2 (09:13→20:35)
[2023-11-14] MEDS: ASPIR LOW (ENTERIC COATED) 81 MG PO (09:13)
[2023-11-14] MEDS: FARXIGA 5 MG PO (09:13)
[2023-11-14] MEDS: SODIUM BICARBONATE 650 MG PO ×3 (09:14→21:47)
[2023-11-14] MEDS: LASIX 80 MG IV ×2 (09:14→17:09)
[2023-11-14] MEDS: PACERONE 200 MG PO ×3 (09:15→21:47)
[2023-11-14] MEDS: NOVOLOG FLEXPEN SC (09:59)
--- NOTE | 2023-11-14 10:11 | W.PN.PUL.V3 ---
Today's Communication / Plan
-
Continue treating with diuresis and steroids
No change in Decadron
Diuresis per nephrology and cardiology
Dialysis has been contemplated
Wean oxygen
Assessment
-
83-year-old man with extensive past medical history. Recently discharged from the hospital, at that time he was admitted with similar complaints of worsening shortness of breath and hypoxemia. He was treated with IV diuretics also he was given
high-dose of the steroids. At that time chest x-ray clear prior to discharge. Plan was to discharge steroids for anti-inflammatory properties, patient is reluctant to use systemic prednisone.
He did complete a course of Zosyn as well. He was discharged on 1 L of supplemental oxygen.
Comes back with worsening shortness of breath and hypoxemia up to requiring high flow oxygen.
Chest x-ray abnormal after complete clearance prior to discharge.
-
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
of gout, BPH
Impression:
#Acute respiratory failure with hypoxia-currently on high flow oxygen.
#Bilateral infiltrates-right greater than left. Possibly inflammatory pneumonitis versus pulmonary edema. Less likely infectious.
Chest x-ray 11/10/2023 improved from 10/25/2023.
#Acute on chronic anemia-no evidence for bleeding.
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
With proBNP significantly elevated component of volume overload also possible
# Sacral decubitus ulcer present on admission.
#Hx of asthma/copd not in an acute exacerbation
#Hx of ABELARDO on auto-BiPAP
#History of bronchiectasis on vest therapy at home
Plan:
Respiratory decompensation fairly rapid after discharge-possibly related to steroid responsive interstitial lung disease flare versus fluid overload or combination of both
Supplemental oxygen as needed-was discharged on 1 L-on 11/06/2023
BiPAP/noninvasive ventilation if needed-was on BiPAP 12/5 cm with a history of obstructive sleep apnea-tolerating
Initially on high flow now weaned to mid flow oxygen-attempt to wean to nasal cannula
High-dose steroids-process appears to be steroid responsive-very slow reduction-may have been tapered to rapidly as an outpatient
Mucolytic's
Aspiration precautions
Nebulizers-budesonide and DuoNebs
CT chest 11/12/2023 summarized below
Currently no strong evidence for infection.
Procalcitonin is slightly elevated-not valid inpatient with elevated creatinine and BUN at this point
Observe off antibiotics
Continue with the diuresis as tolerated
Monitor renal function, electrolytes, intake/output, lower extremity edema and weight
Replace electrolytes as needed
Previously followed by nephrology and dialysis was considered for a while
Consider right heart catheterization if intravascular volume status unclear
Amiodarone 200 mg daily-this dose usually does not cause pulmonary toxicity, however, will monitor closely
Continue to hold momelotinib -review adverse effect profile. No mention for interstitial lung pneumonia but increased risk of respiratory failure and pneumonia. states the patient has not received since prior admission.
Momelotinib -continues to be on hold rule out drug-induced pneumonitis-on the steroids as above.
Follow hemoglobin-initially 6.4-now 7.5
Monitor thrombocytopenia
Transfuse as needed
Follow blood sugar, particularly on IV corticosteroids.
Insulin supplementation as needed
Sacral decubitus ulcers-local care
DVT prophylaxis
Nutrition
Early mobilization/physical therapy
Reviewed with nursing as well as primary team
Outpatient follow-up with Dr. Camara after discharge.
updated by Dr. Rivera 11/12/2023 per
Data:
CXR 10-24-2023:
The heart size is within the limits of normal.There are bilateral airspace and interstitial infiltrates, right greater than left, consistent with diffuse pneumonia.Regional skeleton intact.
CT of the chest ordered by az 11/12/2023: Reviewed showed extensive bilateral groundglass opacities. Bilateral small pleural effusions. Differential diagnosis continues to be pulmonary edema versus inflammatory pneumonitis.
Discussed with nephrology given stability and weight felt that probably volume overload not playing significant role. Difficult to assess clinically.
Echo 10/25/2023: EF 44%, global hypokinesis more prominent in mid and basal segments of anterior lateral wall. Mild to moderate MR. Mild AI. Mild TR.
Echo 09/02/23: EF 45-50% with mild global hypokinesis and more notable mid to apical anterolateral. EF 50-55% visual by echo Jun 2023.
Echocardiogram�from January 22, 2023 showed top normal LV size with low normal or mildly globally reduced systolic function, LVEF of 50 to 55%, thickened mitral valve leaflets with MAC and mild MR, aortic sclerosis with mild AI, normal right heart
with normal PA systolic pressure, dilated aorta with maximum diameter of 4.4 cm.
Pharmacologic nuclear stress test�on January 2023 showed abnormal perfusion imaging with small, mild apical inferior and apical lateral defect suggestive of mild ischemia.� No evidence of scar.� Systolic function was mildly reduced at 42% on stress
test.� Compared to prior study from 2020, apical lateral and apical inferior defects were present then but also inferior, mid inferior and inferolateral segments.� LVEF prior was 40%
Left heart catheterization�from July 28, 2015: Mild tapering of distal left main.� Complex high-grade stenosis from proximal to mid LAD involving the origin of a very large diagonal branch.� The mid LAD beyond the diagonal has a 60% stenosis and
60% distal stenosis.� Nonobstructive disease in the other arteries.� LV gram suggested an LVEF of 25 to 30%.� On August 01, 2015 he underwent a 3.0 x 28 mm Alpine Xience 5 drug-eluting stent to the ostial LAD
Left heart catheterization from May 10, 2023: LVEDP 14. Left main large vessel which gives rise to LAD and circumflex. 20% distal left main stenosis. Diffuse atherosclerotic in-stent restenosis up to 50% spanning ostial to mid LAD involving
origin of a very large diagonal branch. Mid LAD beyond diagonal branch has 50 to 60% stenosis and a focal 56% distal stenosis. iFR is grossly positive at 0.7 in the mid to distal LAD. 50 to 60% ostial diagonal stenosis. Circumflex is large with
bifurcating OM1 with 30 to 40% stenosis and diffuse atherosclerotic plaque. RCA is large dominant vessel moderately calcified with a high anterior origin from the aorta. Diffuse atherosclerotic plaque. Following this procedure patient was seen by
CT surgery and was deemed too high risk. Decision was made for medical therapy; could consider high risk PCI if fails medical therapy
Subjective Data
-
Date of Service:
Date of Service: November 14, 2023
Chief Complaint: Pulmonary Follow Up (Hypoxemic respiratory failure-abnormal CT chest) and Dyspnea Follow Up
Subjective:
Somewhat improved, still significant shortness of breath with exertion, some chest congestion, minimal productive cough, no chest pain, pleurisy or abdominal pain
Review of Systems
General: Other (Per HPI)
Objective Data
Data Reviewed
Vital Signs / I&O:
Vital Signs
Temp Pulse Resp BP Pulse Ox
97.4 F 118 20 120/63 95
11/14/23 09:27 11/14/23 07:30 11/14/23 07:30 11/14/23 06:00 11/14/23 07:30
Intake and Output
11/13/23 11/14/23 11/15/23
06:59 06:59 06:59
Intake Total 745 / 745 240 / 240
Output Total 3200 / 3200 2300 / 2300
Balance -2455 / -2455 -2059 / -2059
SaO2: 95
Nasal Cannula flow liters per minute: 40
Physical Exam
General: Respiratory Distress (n) and Comfortable
HEENT: Normocephalic, Anicteric and Moist Mucous Membranes
Cardiovascular: Regular Rhythm
Respiratory: Crackles (bases), Rhonchi (Few expiratory), Non-Labored Respirations, Accessory Resp Muscle Use and Stridor (n)
GI: Soft and Non Distended
Neurology: Awake, Alert and No Motor Deficits
Skin: Warm, Good Color, Cyanosis (n), Jaundice (n) and Rash (n)
Labs/Micro/Reports
Lab Data
11/14/23 04:15
11/14/23 04:15
Laboratory Results
11/14/23
04:15
PT 30.9 H
INR 2.92
Microbiology
11/11/23 00:17 Blood/Venous Blood Culture - Preliminary
No Growth in 72 hours- Final report to follow
11/10/23 23:47 Blood/Venous Blood Culture - Preliminary
No Growth in 72 hours- Final report to follow
[2023-11-14 11:36] LABS: Glucose - Point of Care 419 mg/dl (70-99)
[2023-11-14] MEDS: TOPROL XL 12.5 MG PO ×2 (11:54→20:32)
--- NOTE | 2023-11-14 11:56 | W.PN.NEPH.PH ---
Today's Communication / Plan
-
cont lasix
Assessment/Plan
-
Chronic kidney disease stage IV
Acute on chronic hypoxic respiratory
COPD/interstitial lung disease/recent pneumonia
History of congestive heart failure
Anemia
CLL/MGUS/myelofibrosis
Type 2 diabetes
Hypertension
BPH
History of C. difficile (on vancomycin)
Metabolic acidosis
Plan:
-GER-cr slow rise with profound azotemia
-maintain lasix 80BID nonoliguric and weights down, still edema and O2
-Maintain oral bicarbonate for metabolic acidosis
-Hemodynamically stable
-Anemia better s/p transfusion
steroids for possible pneumonitis per pulm
If patient remains hypervolemic despite aggressive diuresis we may need to transition to dialysis
long discussion with pt about high risk of dialysis this admit however he is focused on getting his OP f/u with other providers to rearrange and until then would not want to start
We also briefly reviewed of burden of HD and impairing QOL too
He has specific questions about exact schedule of HD and transport-tried to discuss with him that with out initiating HD we would not have any of this info
however pt is adamant to know before he commits to HD-d/w nursing, CM also follows him
high risk encounter
-
-
Date of Service: November 14, 2023
CC / HPI / ROS
-
Chief Complaint:
CKD stage IV
History of Present Illness:
Hemodynamically stable on amlodipine
Creatinine up at 4 but with BUN in excess of 137
Anemia better at 7.5 s/p PRBC 11/11
Review of Systems:
Nonoliguric
Weights down
on mid flow oxygen 12lit
sob with minimal exertion slowly improving
Labs
-
Labs:
WBC 17.6 10^3/uL (4.8-10.8) H 11/14/23 04:15
RBC 2.66 10^6/uL (4.70-6.10) L 11/14/23 04:15
Hgb 7.5 g/dL (13.0-18.0) L 11/14/23 04:15
Hct 24.3 % (39.0-52.0) L 11/14/23 04:15
Plt Count 119 10^3/uL (130-400) L 11/14/23 04:15
Sodium 142 mmol/L (135-145) 11/14/23 04:15
Potassium 4.2 mmol/L (3.5-5.1) 11/14/23 04:15
Chloride 109 mmol/L (98-107) H 11/14/23 04:15
Carbon Dioxide 25 mmol/L (22-30) 11/14/23 04:15
BUN 137 mg/dl (9-20) H* 11/14/23 04:15
Creatinine 4.0 mg/dL (0.7-1.3) H 11/14/23 04:15
eGFR 14.24 11/14/23 04:15
Glucose 184 mg/dl (70-99) H 11/14/23 04:15
Calcium 8.3 mg/dl (8.4-10.2) L 11/14/23 04:15
Phosphorus 4.9 mg/dl (2.5-4.5) H 11/11/23 06:36
Tbn-E-Jfktjkahgxq Pept > 98853 pg/ml 11/10/23 23:47
Albumin 2.9 g/dl (3.5-5.0) L 11/10/23 23:47
Physical Exam
-
Vital Signs:
Vital Signs
Temp Pulse Resp BP Pulse Ox
97.4 F 118 20 120/63 95
11/14/23 09:27 11/14/23 07:30 11/14/23 07:30 11/14/23 06:00 11/14/23 10:11
Cardiovascular:: Regular rate and rhythm
Respiratory:: Bilateral: CTA
Lung Excursion:: Normal
Abdomen:: Nontender and Soft
Extremity Edema:: +2: Bilateral:
Crespo Catheter: No
[2023-11-14 12:22] LABS: Glucose - Point of Care 354 mg/dl (70-99)
[2023-11-14] MEDS: NOVOLOG FLEXPEN-LOW RESISTANCE 5 UNITS SC (12:59)
[2023-11-14] MEDS: FIRVANQ 125 MG PO (13:02)
[2023-11-14 16:33] LABS: Glucose - Point of Care 290 mg/dl (70-99)
--- NOTE | 2023-11-14 16:52 | CM ---
Addendum entered by Landy Manzo RN 11/14/23 17:13:
Additionally patient and now interested in [facility] rather than [facility].
Original Note:
Patient with Dx Acute on chronic hypoxic respiratory failure, HF, anemia. O2. Receiving IV Decadron, IV Lasix. PT & OT recommend skilled rehab.
Met with patient and spoke with his Sharon by speaker phone in room with patient; patient states he is still deciding about dialysis. Answered questions & concerns about outpatient dialysis referral process, schedule, transport similar to
conversation yesterday. He was fixated on asking how many days he would be here after HD referral was made- gave approximate days for HD approval process up to 7 days. Patient posed additional questions about dialysis access and dialysis sessions
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 Encouraged patient to focus on the decision for dialysis based on it's merits/benefits and quality of life improvement, rather than details re; d/c that CM
would assist him with.
Discussed need for short term SNF for rehab. Reviewed HD facilities that take dialysis patients: [facility]. Patient & chose [facility] if discharged on HD, otherwise may be interested in [facility] again.
Plan referral [facility] once decision for HD is confirmed.
Plan SNF referrals once decision for HD determined.
[2023-11-14] MEDS: FEOSOL 325 MG PO (17:10)
[2023-11-14] MEDS: CRESTOR 5 MG PO (17:10)
[2023-11-14] MEDS: PROSCAR 5 MG PO (17:10)
[2023-11-14] MEDS: NOVOLOG FLEXPEN-LOW RESISTANCE 3 UNITS SC (17:12)
--- NOTE | 2023-11-14 17:31 | W.PN.CARDCBS ---
Today's Communication / Plan
-
In crease amio
stop ASA
increase metoprolol
Impression / Plan
-
PCP: Rob Santos
Outpatient Health Underwriter: BRIGITTE Snow
Impression:
Acute hypoxic respiratory failure
Acute on chronic heart failure with reduced ejection fraction
GER, on CKD stage IIIb/marked proteinuria
Recent admission w/ d/c 11/06/23 for acute hypoxic respiratory failure due to pneumonia/interstitial pneumonitis
History of C. difficile (on vancomycin)
Recent multiple hospitalizations including proctitis and pneumonia in June 2023
Recent prolonged admission following outpatient cardiac catheterization 05/10 - 05/21/2023
Coronary artery disease status post prior ostial LAD PCI in 2015 with recent cardiac catheterization noting diffusely positive IFR of the LAD back to the left main
Prior ischemic cardiomyopathy with LVEF of 25 to 30%, most recently recovered to 50-55% on echo
History of NSVT last admission
CLL/MGUS/Chronic anemia�management per Dr. 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 Aranesp initiated 05/09/23 every 3 weeks.
Paroxysmal atrial fibrillation, on chronic anticoagulation with Coumadin [history of hemoptysis and hematuria on Xarelto in 2017. Declined Eliquis]
COPD, not on home oxygen
C diff diarrhea
Hypertension
Hyperlipidemia
Type 2 diabetes mellitus
Mild cognitive decline / Frailty
Obstructive sleep apnea
Gout hx
IgG deficiency hx
Prior hematuria in 2016/history of BPH
Echo 10/25/2023: EF 44%, global hypokinesis more prominent in mid and basal segments of anterior lateral wall. Mild to moderate MR. Mild AI. Mild TR.
Echo 09/02/23: EF 45-50% with mild global hypokinesis and more notable mid to apical anterolateral. EF 50-55% visual by echo Jun 2023.
Echocardiogram�from January 22, 2023 showed top normal LV size with low normal or mildly globally reduced systolic function, LVEF of 50 to 55%, thickened mitral valve leaflets with MAC and mild MR, aortic sclerosis with mild AI, normal right heart
with normal PA systolic pressure, dilated aorta with maximum diameter of 4.4 cm.
Pharmacologic nuclear stress test�on January 2023 showed abnormal perfusion imaging with small, mild apical inferior and apical lateral defect suggestive of mild ischemia.� No evidence of scar.� Systolic function was mildly reduced at 42% on stress
test.� Compared to prior study from 2020, apical lateral and apical inferior defects were present then but also inferior, mid inferior and inferolateral segments.� LVEF prior was 40%
Left heart catheterization�from July 28, 2015: Mild tapering of distal left main.� Complex high-grade stenosis from proximal to mid LAD involving the origin of a very large diagonal branch.� The mid LAD beyond the diagonal has a 60% stenosis and
60% distal stenosis.� Nonobstructive disease in the other arteries.� LV gram suggested an LVEF of 25 to 30%.� On August 01, 2015 he underwent a 3.0 x 28 mm Alpine Xience 5 drug-eluting stent to the ostial LAD
Left heart catheterization from May 10, 2023: LVEDP 14. Left main large vessel which gives rise to LAD and circumflex. 20% distal left main stenosis. Diffuse atherosclerotic in-stent restenosis up to 50% spanning ostial to mid LAD involving
origin of a very large diagonal branch. Mid LAD beyond diagonal branch has 50 to 60% stenosis and a focal 56% distal stenosis. iFR is grossly positive at 0.7 in the mid to distal LAD. 50 to 60% ostial diagonal stenosis. Circumflex is large with
bifurcating OM1 with 30 to 40% stenosis and diffuse atherosclerotic plaque. RCA is large dominant vessel moderately calcified with a high anterior origin from the aorta. Diffuse atherosclerotic plaque. Following this procedure patient was seen by
CT surgery and was deemed too high risk. Decision was made for medical therapy; could consider high risk PCI if fails medical therapy
Plan:
Plan:
From a volume standpoint he is doing reasonably well. Currently on furosemide 80 mg IV twice daily with creatinine of approximately 4. Will defer to renal as to best management, probably can could transition to oral furosemide soon.
He indicated he still wants to be treated aggressively. He would accept dialysis but has a number of questions. He is currently a full code consistent with his wishes.
.
Unfortunately it appears that he has developed recurrent atrial fibrillation late yesterday or in the channeler hours. Will increase amiodarone to 200 mg 3 times daily for now and double metoprolol ER to 12.5 twice daily. We will de-escalate
if he converts to sinus rhythm. Otherwise probably focus on rate control. He is on warfarin. I favor dc of ASA given bleeding risk, anemia.. Check EKG.
We will continue to follow.
Progress Note - Health Underwriter
Subjective
Date of Service: November 14, 2023:
He offers no complaints.
PMH/PSH/FH/SH: Reviewed
Allergies: Atorvastatin, immunoglobulin, prednisone
Home meds: Reviewed: Pertinent cardiac meds amiodarone 200 mg a day, amlodipine 10 mg a day, aspirin 81 mg a day, dapagliflozin 5 mg a day metoprolol ER 12.5 mg a day, Nitropatch, rosuvastatin 5 mg a day, bicarbonate, warfarin
Pertinent cardiac current medications: Amiodarone 200 mg a day, aspirin 81 mg a day, dapagliflozin on 5 mg a day, metoprolol ER 12.5 mg a day, nitroglycerin patch 0.6 mg a day, rosuvastatin 5 mg a day, bicarbonate, warfarin, furosemide 80 mg IV
twice daily
ROS: Negative except as above
120/63, pulse 118, respiratory 20, sats 95%, weight is 70 kg, had been 72 kg, 76 kg on admission and 75 kg at discharge on November 06
No acute distress, feels much better than admission
Head neck exam unremarkable, lungs are relatively clear, JVD not substantially elevated, regular rate and rhythm, soft systolic murmur, abdomen benign, trace edema, neuro nonfocal
Telemetry: Now appears to be A-fib, ventricular response slightly under 100 on amiodarone 200 mg a day metoprolol ER 12.5 mg daily
Hemoglobin 7.5, platelets are 119, white count 17.6, BUN is 137, creatinine is 4
CT scan chest November 11: Small effusions, CAD Sanjeev, possible also pneumonia
Objective
Labs:
11/14/23 04:15
11/14/23 04:15
Labs
Hgb 7.5 g/dL (13.0-18.0) L 11/14/23 04:15
Hct 24.3 % (39.0-52.0) L 11/14/23 04:15
Plt Count 119 10^3/uL (130-400) L 11/14/23 04:15
PT 30.9 Sec (11.4-14.6) H 11/14/23 04:15
INR 2.92 11/14/23 04:15
Sodium 142 mmol/L (135-145) 11/14/23 04:15
Potassium 4.2 mmol/L (3.5-5.1) 11/14/23 04:15
BUN 137 mg/dl (9-20) H* 11/14/23 04:15
Creatinine 4.0 mg/dL (0.7-1.3) H 11/14/23 04:15
Glucose 184 mg/dl (70-99) H 11/14/23 04:15
Vital Signs and I&O:
Vital Signs
Temp Pulse Resp BP Pulse Ox
36.2 C 102 28 112/64 98
11/14/23 16:00 11/14/23 12:00 11/14/23 12:00 11/14/23 12:00 11/14/23 12:00
Vital Signs
Temp Pulse Resp BP Pulse Ox
36.2 C 102 28 112/64 98
11/14/23 16:00 11/14/23 12:00 11/14/23 12:00 11/14/23 12:00 11/14/23 12:00
Intake & Output
11/12/23 11/13/23 11/14/23 11/15/23
07:59 07:59 07:59 07:59
Intake Total 240 / 240 745 / 745 240 / 240
Output Total 1900 / 1900 3000 / 3000 2300 / 2300
Balance -0 / -1659 -2254 / -2254 -2059 / -2059
Physical Exam
Physical Exam
See above
--- NOTE | 2023-11-14 17:34 | W.PN.UPDATE ---
Update Note
Progress Note Update
Spoke with patient at length. Reviewed his clinical course of progressive respiratory failure, advanced CKD, pulmonary dysfunction, cardiac dysfunction, CLL with myelofibrosis and transfusion dependence, now complicated by GER
It was made clear that he would not improve without renal replacement therapy.
He was offered the opportunity for palliative care and not moving forward with dialysis which is an option he does not wish to choose.
We spoke of the dialysis process, need for central venous access, outpatient scheduling, etc.
This will be a clinical challenge and he could potentially feel better, have his volume status managed better, improve his nutritional status and wound healing. On the other hand, if he does not clinically improve over several weeks, he always has
the option to withdraw from dialysis and seek comfort/hospice measures.
He will be made n.p.o. after midnight, tunneled HD CVC hopefully to be placed tomorrow, HD to begin tomorrow.
Outpatient dialysis planning will be initiated to the dialysis facility of his choice.
Hopefully all questions were answered to his satisfaction
Total time both nephrology encounters today 44 minutes
[2023-11-14] MEDS: COUMADIN 2 MG PO (18:05)
[2023-11-14] MEDS: LANTUS 0.149999999999999994 UNITS SC (21:48)
[2023-11-14 22:00] LABS: Glucose - Point of Care 121 mg/dl (70-99)
[2023-11-15] VITALS (38 sets, daily range): BP systolic 64–133; BP diastolic 39–86; PULSE 2–72; O2SAT 96; BMI 21.9
[2023-11-15 04:58] LABS: % Basophils 0.1 % (0-2); % Immature Granulocytes 2.5 % (0-0.5); % Lymphocytes 1.3 % (20.5-51.1); % Monocytes 0.8 % (1.7-9.3); % Neutrophils 95.3 % (42.2-75.2); Absolute Immature Granulocytes 0.4 10^3/uL (0-0.05); Absolute Lymphocytes 0.2 10^3/uL (1.2-3.4); Absolute Monocytes 0.1 10^3/uL (0.1-0.6); Absolute Neutrophils 14.1 10^3/uL (1.4-6.5); Hematocrit 24.1 % (39.0-52.0); Hemoglobin 7.7 g/dL (13.0-18.0); Mean Corpuscular Hgb 28.6 pg (27.0-31.0); Mean Corpuscular Volume 89.6 fL (80.0-94.0); Mean Platelet Volume 10.7 fL (7.4-10.4); Nucleated Red Blood Cells % 0.3 % (-); Platelet Count 114 10^3/uL (130-400); Red Blood Cell Count 2.69 10^6/uL (4.70-6.10); Red Cell Dist. Width 21.2 % (11.5-14.5); White Blood Cell Count 14.8 10^3/uL (4.8-10.8)
--- NOTE | 2023-11-15 05:03 | PTCARENOTE ---
Pt remains AAOx3, continues w/ anxiety regarding upcoming tunneled HD cath procedure. Pt frequently requests to know what time procedures will take place. This RN educated pt on POC, reminded pt that staff is not alerted of procedure time prior to
procedures, and encouraged pt to have patience as more information will become available in the AM. Pt verbalizes understanding, but continues with questions regarding procedure times. Pt uses urinal independently. CPAP HS. Denies complaints at this
time. Assessment as documented. Call gibbons within reach. Pt rings for RN frequently to clarify plan for the day.
[2023-11-15 05:08] LABS: INR 2.87; PT 30.4 Sec (11.4-14.6)
[2023-11-15 05:44] LABS: Blood Urea Nitrogen 147 mg/dl (9-20); Calcium 8.4 mg/dl (8.4-10.2); Carbon Dioxide 23 mmol/L (22-30); Chloride 109 mmol/L (98-107); Estimated Creatinine Clearance 14 ml/min; Glucose 87 mg/dl (70-99); Potassium 3.7 mmol/L (3.5-5.1); Sodium 140 mmol/L (135-145); eGFR 14.24
[2023-11-15] MEDS: PULMICORT 0.5 MG INH ×2 (07:17→20:31)
[2023-11-15] MEDS: DUONEB 3 ML INH ×2 (07:17→20:31)
--- NOTE | 2023-11-15 07:30 | PN.DE.MGMTRT ---
Insulin Management
- -
11/15/2023: Diabetes Management Follow up:
Pt readmitted 11/09 for acute respiratory hypoxia after a lengthy hospitalization 10/23 to 11/05 with Acute Hypoxic respiratory failure 2/2 to pneumonia +/- Interstitial Pneumonitis in setting of Momelotinib. PMH: CKD4, HFrEF, CLL/myelofibrosis, anemia
of chronic disease, PAFib, CAD, COPD, HTN, DLD, recent C-Diff, BPH
Current A1C 4.8%, Cr 4.0, eGFR 14.24.
Pt states he has no known hx of Diabetes Mellitus but has taken insulin at home in the past and has working glucose monitor. States prior to this admission he has been monitoring his blood sugars before each meal and has noted range of 80-150 in
morning and higher glucose level in the evening. States he has been holding premeal insulin if blood sugar is <150 but consistently taking the Lantus every night.
Dexamethasone continues at 4 mg Q 8 hours.
HS lantus increased to 15 units last HS and AC novolog increased to 13 units yesterday. Diet changed to 2200 calories. Glucose up to 354 pre lunch.
Patient for procedure today, tunneled cath for HD. After procedure will rseume diabetes medication.
Current Diabetes regimen includes: Farxiga 5 mg daily, Lantus 15 units @ HS and NovoLog 13 units AC with low corrective. Glucose range yesterday 219 fasting to 354.
Will continue HS lantus to home dose of 15 units, 3AM glucose not obtained and increase AC novolog to 15 units
Diet changed by Loren Mitchell to include 2200 calories in addition to cholesterol lowering, 2 GM sodium and 2 GM potassium.
Diabetes History
- -
Type of Diabetes: 2 requiring insulin
Pre-Admission Diabetes Regimen
11/15/23
04:40
Creatinine 4.0 H
Lab Results
Hemoglobin A1c 4.8 % (4.0-5.6) 11/11/23 04:00
Insulin Pump Settings
IP Diabetes Regimen
11/14/23 11/14/23 11/14/23
11:24 11:27 16:22
Glucose
POC Glucose 419 H 354 H 290 H
11/14/23 11/15/23
21:49 04:40
Glucose 87
POC Glucose 121 H
Meal type: Dinner
Meal type: Breakfast
Amount consumed: 90%
Amount consumed: 100%
Patient Education
[2023-11-15] MEDS: ASPIR LOW (ENTERIC COATED) 81 MG PO (07:41)
[2023-11-15] MEDS: LASIX 80 MG IV (07:41)
[2023-11-15] MEDS: NITRO-DUR 0.599999999999999978 MG TRANSDERM (07:41)
[2023-11-15] MEDS: TOPROL XL 12.5 MG PO ×2 (07:42→19:21)
[2023-11-15] MEDS: MUCINEX 600 MG PO ×2 (07:42→19:19)
[2023-11-15] MEDS: SODIUM BICARBONATE 650 MG PO ×3 (07:42→21:34)
[2023-11-15] MEDS: PACERONE 200 MG PO ×2 (07:42→19:20)
[2023-11-15] MEDS: DECADRON 4 MG IV (07:44)
[2023-11-15] MEDS: FARXIGA PO (07:45)
[2023-11-15] MEDS: NOVOLOG FLEXPEN-LOW RESISTANCE SC ×2 (07:45→17:49)
[2023-11-15 07:57] LABS: Glucose - Point of Care 109 mg/dl (70-99)
--- NOTE | 2023-11-15 08:00 | W.PN.HOSP.TC ---
Today's Communication/Plan
-
Hemodialysis catheter placement
Monitor labs
Wean oxygen as able
PT/OT
Assessment / Plan
Assessment / Plan
Gen-AAOx3, NAD
HEENT-NC, AT, anicteric, clear oral mm
Neck-supple
CV-reg, no M, +S1/S2
Lungs-bilateral rales, rhonchi
Abd-soft, NT, ND
Ext-no edema
Musculoskeletal-no cyanosis, clubbing
Skin-warm and dry
Neuro-grossly non-focal
Psych-calm, cooperative
Acute on chronic hypoxic respiratory failure -likely multifactorial etiology including acute on chronic heart failure, interstitial lung disease. Has underlying COPD, ABELARDO. Oxygenation improving, now on mid flow oxygen at 8 L. Wean down as able.
Not on home oxygen.
Clinically doubt pneumonia. Off antibiotics.
Getting systemic steroids for possible interstitial lung process as per pulmonary. Consider discontinuing amiodarone if able.
Acute on chronic heart failure with reduced EF exacerbation -very difficult to assess true volume status. Cardiology consulted. Discharged last week off diuretics. Continue IV Lasix. Weight coming down. Ideally needs right heart catheterization
if cardiology agrees. Weight is down to 69 kg today, was 76 kg on admission..
Acute on chronic anemia -baseline hemoglobin averages 8-9, admission hemoglobin 6.4. Hemoglobin improved to 7.7 today, has had 3 units of blood transfused so far. Must use irradiated, leuko reduced. Does not need to be CMV negative, discussed
with Dr. Alexis.
Gets Aranesp q3 weeks by Dr Alexis, due for next dose this . We are unable to give Aranesp here in the hospital as it is nonformulary. Discussed with patient and .
Acute thrombocytopenia -platelet count 114k. Unclear etiology. Monitor for now.
CLL/MGUS/myelofibrosis -was on Momelotinib.
CKD 4 -creatinine relatively stable at 4.0. Nephrology plans on hemodialysis catheter placement today, patient wants to move forward with dialysis.
Paroxysmal atrial fibrillation -on warfarin, amiodarone. INR 2.8 today, warfarin resumed last night at 2 mg.
CAD -stable.
COPD without exacerbation
DM2 without hypoglycemia -he is on Lantus 15 units at bedtime, Humalog 12 units AC at home, Farxiga 5 mg daily. Insulin doses adjusted by diabetes PRESS ASSISTANT. Glucose 87 this morning.
Essential hypertension - stable.
Hyperlipidemia -on rosuvastatin.
History of CDAD -resume vancomycin taper, currently on 1 tablet every 72 hours x 7 days.
BPH
Full-thickness coccyx/perineal ulcer, likely healing PI stage 3
Full code
Dispo -SNF when medically stable.
Anticipated Discharge: > 48 hours
Subjective/Interval History
-
Date of Service: November 15, 2023
Patient seen and examined. Improving shortness of breath. No complaints.
Objective Data
-
Labs:
Laboratory Results
11/15/23
04:40
WBC 14.8 H
Hgb 7.7 L
Hct 24.1 L
Plt Count 114 L
PT 30.4 H
INR 2.87
Sodium 140
Potassium 3.7
Chloride 109 H
Carbon Dioxide 23
BUN 147 H*
Creatinine 4.0 H
Glucose 87
Calcium 8.4
Vital Signs:
Vital Signs
Temp Pulse Resp BP Pulse Ox
97.5 F 67 20 129/47 96
11/15/23 04:01 11/15/23 07:42 11/15/23 07:42 11/15/23 06:00 11/15/23 07:42
I&O
11/14/23 11/15/23 11/16/23
06:59 06:59 06:59
Intake Total 240 / 240 480 / 480
Output Total 2300 / 2300 925 / 925
Balance -206 / -2059 - /
Review of Systems
-
History Source: Patient
All other systems: Reviewed and negative
[2023-11-15] MEDS: NOVOLOG FLEXPEN SC ×3 (09:02→12:14)
--- NOTE | 2023-11-15 09:08 | W.PN.PUL3 ---
Today's Communication / Plan
-
Planning for tunneled HD cath placement today with session planned
Renal following, agree with volume removal
Wean O2 as tolerated
Transition IV steroids to PO with plan for taper
Encouraged OOB/PT/IS
Transfuse as needed with HD
Assessment
-
83-year-old man with extensive past medical history. Recently discharged from the hospital, at that time he was admitted with similar complaints of worsening shortness of breath and hypoxemia. He was treated with IV diuretics also he was given
high-dose of the steroids. At that time chest x-ray clear prior to discharge. Plan was to discharge steroids for anti-inflammatory properties, patient is reluctant to use systemic prednisone.
He did complete a course of Zosyn as well. He was discharged on 1 L of supplemental oxygen. Comes back with worsening shortness of breath and hypoxemia up to requiring high flow oxygen. Chest x-ray abnormal after complete clearance prior to
discharge.
-
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
gout, BPH
Impression:
#Acute respiratory failure with hypoxia-currently on high flow oxygen.
#Bilateral infiltrates-likely acute pulmonary edema, proBNP >98894
#Acute on chronic anemia-no evidence for bleeding.
#Acute HFmrEF exacerbation (LVEF: 44% via TTE from 10-25-2023)
#Mild-moderate MR
#Sacral decubitus ulcer present on admission.
#Hx of asthma/copd not in an acute exacerbation
#Hx of ABELARDO on auto-BiPAP
#History of bronchiectasis on vest therapy at home
Plan:
Respiratory decompensation fairly rapid after discharge-acute on chronic HF exacerbation, proBNP >02246
Supplemental oxygen as needed-was discharged on 1 L-on 11/06/2023
BiPAP/noninvasive ventilation if needed-was on BiPAP 12/5 cm with a history of obstructive sleep apnea-tolerating
Initially on high flow now, now transitioned to 8L midflow, continue to wean
High-dose steroids-process appears to be steroid responsive, transition to PO decadron/wean as tolerated
Has allergy to prednisone noted in record
Mucolytic's
Aspiration precautions
Nebulizers-budesonide and DuoNebs
CT chest 11/12/2023 summarized below
Currently no strong evidence for infection.
Procalcitonin is slightly elevated-not valid inpatient with elevated creatinine and BUN at this point
Observe off antibiotics
Continue with the diuresis as tolerated
Monitor renal function, electrolytes, intake/output, lower extremity edema and weight
Replace electrolytes as needed
Previously followed by nephrology and dialysis was considered for a while
Plan to move forward with HD, tunneled CVC to be placed
Amiodarone 200 mg daily-this dose usually does not cause pulmonary toxicity, however, will monitor closely
Continue to hold momelotinib -review adverse effect profile. No mention for interstitial lung pneumonia but increased risk of respiratory failure and pneumonia.
states the patient has not received since prior admission.
Momelotinib -continues to be on hold rule out drug-induced pneumonitis-on the steroids as above.
Follow hemoglobin-initially 6.4-now 7.5
Monitor thrombocytopenia
Transfuse as needed
Follow blood sugar, particularly on IV corticosteroids.
Insulin supplementation as needed
Sacral decubitus ulcers-local care
DVT prophylaxis
Nutrition
Early mobilization/physical therapy
Reviewed with nursing as well as primary team
Outpatient follow-up with Dr. Camara after discharge.
updated by Dr. Rivera 11/12/2023 per
Diagnostic Data:
CXR 10-24-2023: The heart size is within the limits of normal. There are bilateral airspace and interstitial infiltrates, right greater than left, consistent with diffuse pneumonia.Regional skeleton intact.
CT of the chest 11/12/2023: Reviewed showed extensive bilateral ground glass opacities. Bilateral small pleural effusions. Differential diagnosis continues to be pulmonary edema versus inflammatory pneumonitis.
Discussed with nephrology given stability and weight felt that probably volume overload not playing significant role. Difficult to assess clinically.
Echo 10/25/2023: EF 44%, global hypokinesis more prominent in mid and basal segments of anterior lateral wall. Mild to moderate MR. Mild AI. Mild TR.
Echo 09/02/23: EF 45-50% with mild global hypokinesis and more notable mid to apical anterolateral. EF 50-55% visual by echo Jun 2023.
Echocardiogram�from January 22, 2023 showed top normal LV size with low normal or mildly globally reduced systolic function, LVEF of 50 to 55%, thickened mitral valve leaflets with MAC and mild MR, aortic sclerosis with mild AI, normal right heart
with normal PA systolic pressure, dilated aorta with maximum diameter of 4.4 cm.
Pharmacologic nuclear stress test�on January 2023 showed abnormal perfusion imaging with small, mild apical inferior and apical lateral defect suggestive of mild ischemia.� No evidence of scar.� Systolic function was mildly reduced at 42% on stress
test.� Compared to prior study from 2020, apical lateral and apical inferior defects were present then but also inferior, mid inferior and inferolateral segments.� LVEF prior was 40%
Left heart catheterization�from July 28, 2015: Mild tapering of distal left main.� Complex high-grade stenosis from proximal to mid LAD involving the origin of a very large diagonal branch.� The mid LAD beyond the diagonal has a 60% stenosis and
60% distal stenosis.� Nonobstructive disease in the other arteries.� LV gram suggested an LVEF of 25 to 30%.� On August 01, 2015 he underwent a 3.0 x 28 mm Alpine Xience 5 drug-eluting stent to the ostial LAD
Left heart catheterization from May 10, 2023: LVEDP 14. Left main large vessel which gives rise to LAD and circumflex. 20% distal left main stenosis. Diffuse atherosclerotic in-stent restenosis up to 50% spanning ostial to mid LAD involving
origin of a very large diagonal branch. Mid LAD beyond diagonal branch has 50 to 60% stenosis and a focal 56% distal stenosis. iFR is grossly positive at 0.7 in the mid to distal LAD. 50 to 60% ostial diagonal stenosis. Circumflex is large with
bifurcating OM1 with 30 to 40% stenosis and diffuse atherosclerotic plaque. RCA is large dominant vessel moderately calcified with a high anterior origin from the aorta. Diffuse atherosclerotic plaque. Following this procedure patient was seen by
CT surgery and was deemed too high risk. Decision was made for medical therapy; could consider high risk PCI if fails medical therapy
Subjective Data
-
Date of Service:
Date of Service: November 15, 2023
Chief Complaint: Pulmonary Follow Up (Hypoxemic respiratory failure-abnormal CT chest) and Dyspnea Follow Up
Subjective:
subjectively improved, now off HFNC and transitioned to 8L MF
sitting in chair, fatigue is biggest complaint
awaiting HD cath placement
Objective Data
Data Reviewed
Vital Signs / I&O / Oxygen:
Vital Signs
Temp Pulse Resp BP Pulse Ox
97.3 F 67 20 129/47 96
11/15/23 07:20 11/15/23 07:42 11/15/23 07:42 11/15/23 06:00 11/15/23 07:42
Intake and Output
11/14/23 11/15/23 11/16/23
06:59 06:59 06:59
Intake Total 240 / 240 480 / 480
Output Total 2300 / 2300 925 / 925 275 / 275
Balance -2059 / -2060 -445 / -445 -275 / -275
SaO2 96
Nasal Cannula flow liters per 40
minute
Physical Exam
General: Respiratory Distress (n) and Comfortable
HEENT: Normocephalic, Anicteric and Moist Mucous Membranes
Cardiovascular: S1-S2 and Regular Rhythm
Respiratory: Crackles (bases, slight), Non-Labored Respirations, Accessory Resp Muscle Use and Stridor (n)
GI: Soft, Non Distended and Non Tender
Neurology: Awake, Alert, Oriented, AO x 3 and No Motor Deficits
Skin: Warm, Good Color, Cyanosis (n), Jaundice (n) and Rash (n)
Labs/Micro/Reports
Lab Data
11/15/23 04:40
11/15/23 04:40
Laboratory Results
11/15/23
04:40
PT 30.4 H
INR 2.87
Microbiology
11/11/23 00:17 Blood/Venous Blood Culture - Preliminary
No Growth in 4 days- Final report to follow
11/10/23 23:47 Blood/Venous Blood Culture - Preliminary
No Growth in 4 days- Final report to follow
--- NOTE | 2023-11-15 10:12 | W.PN.CARDCBS ---
Addendum entered and electronically signed by Onur Snow MD 11/15/23 11:31:
PMH/PSH/SH/FH: Reviewed
Allergies: Atorvastatin, IgG, prednisone
Outpatient cardiac medications: Amiodarone 200 mg a day, amlodipine 10 mg a day, aspirin 81 mg a day, Farxiga 5 mg a day, metoprolol ER 12.5 mg daily, Nitropatch 0.6 mg/h rosuvastatin 5 mg a day, bicarb, warfarin
Current cardiac medications: Aspirin 81 mg a day, dapagliflozin 5 mg a day, Nitropatch 0.6, rosuvastatin 5 mg a day, bicarb, warfarin, dexamethasone, furosemide 80 IV twice daily, insulin, amiodarone 200 3 times daily, metoprolol ER 12.5 twice daily
ROS: Reviewed
129/47, pulse 67, afebrile, weight is 69.2, -0.8 kg, intake and output -0.4 L
Hemoglobin is 7.7, had been 7.5, platelets are 114, BUN and creatinine are 147 and 4.0, potassium is 3.7, creatinine is unchanged
EKG yesterday atrial fibs right bundle branch block, ventricular response 110 bpm, possible anterior NC
Impression:
Presented 11/10/2023 with shortness of breath
Acute hypoxic respiratory failure
Acute on chronic heart failure with reduced ejection fraction
GER, on CKD stage IIIb/marked proteinuria
Recent admission w/ d/c 11/06/23 for acute hypoxic respiratory failure due to pneumonia/interstitial pneumonitis
History of C. difficile (on vancomycin)
Recent multiple hospitalizations including proctitis and pneumonia in June 2023
Recent prolonged admission following outpatient cardiac catheterization 05/10 - 05/21/2023
Coronary artery disease status post prior ostial LAD PCI in 2016 with recent cardiac catheterization noting diffusely positive IFR of the LAD back to the left main
Prior ischemic cardiomyopathy with LVEF of 25 to 30%, most recently recovered to 50-55% on echo
History of NSVT last admission
CLL/MGUS/Chronic anemia�management per Dr. 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 Aranesp initiated 05/09/23 every 3 weeks.
Paroxysmal atrial fibrillation, on chronic anticoagulation with Coumadin [history of hemoptysis and hematuria on Xarelto in 2017. Declined Eliquis]
COPD, not on home oxygen
C diff diarrhea
Hypertension
Hyperlipidemia
Type 2 diabetes mellitus
Mild cognitive decline / Frailty
Obstructive sleep apnea
Gout hx
IgG deficiency hx
Prior hematuria in 2016/history of BPH
Plan:
He appears stable from a cardiac standpoint, and management of volume will now be facilitated with initiation of hemodialysis.
He is back in sinus rhythm. Continue metoprolol ER 12.5 mg twice daily. Decrease amiodarone from 200 mg 3 times daily to twice daily.
Hemoglobin is low but acceptable at this time. He remains on warfarin. Continue aspirin for now, this may be stopped if anemia remains an ongoing issue. Continue to follow INR closely may need to decrease warfarin..
To start hemodialysis
Original Note:
Today's Communication / Plan
-
Check ECG
Reduce amiodarone to 200 mg BID
Hemodialysis catheter placement today with hopeful dialysis after cath placement
Diuretic management per nephrology
Wean oxygen as tolerated
Impression / Plan
-
PCP: Rob Santos
Outpatient Box Folding Machine Operator: BRIGITTE Snow
Impression:
Presented 11/10/2023 with shortness of breath
Acute hypoxic respiratory failure
Acute on chronic heart failure with reduced ejection fraction
GER, on CKD stage IIIb/marked proteinuria
Recent admission w/ d/c 11/06/23 for acute hypoxic respiratory failure due to pneumonia/interstitial pneumonitis
History of C. difficile (on vancomycin)
Recent multiple hospitalizations including proctitis and pneumonia in June 2023
Recent prolonged admission following outpatient cardiac catheterization 05/10 - 05/21/2023
Coronary artery disease status post prior ostial LAD PCI in 2015 with recent cardiac catheterization noting diffusely positive IFR of the LAD back to the left main
Prior ischemic cardiomyopathy with LVEF of 25 to 30%, most recently recovered to 50-55% on echo
History of NSVT last admission
CLL/MGUS/Chronic anemia�management per Dr. 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 Aranesp initiated 05/09/23 every 3 weeks.
Paroxysmal atrial fibrillation, on chronic anticoagulation with Coumadin [history of hemoptysis and hematuria on Xarelto in 2017. Declined Eliquis]
COPD, not on home oxygen
C diff diarrhea
Hypertension
Hyperlipidemia
Type 2 diabetes mellitus
Mild cognitive decline / Frailty
Obstructive sleep apnea
Gout hx
IgG deficiency hx
Prior hematuria in 2016/history of BPH
Echo 10/25/2023: EF 44%, global hypokinesis more prominent in mid and basal segments of anterior lateral wall. Mild to moderate MR. Mild AI. Mild TR.
Echo 09/02/23: EF 45-50% with mild global hypokinesis and more notable mid to apical anterolateral. EF 50-55% visual by echo Jun 2023.
Echocardiogram�from January 22, 2023 showed top normal LV size with low normal or mildly globally reduced systolic function, LVEF of 50 to 55%, thickened mitral valve leaflets with MAC and mild MR, aortic sclerosis with mild AI, normal right heart
with normal PA systolic pressure, dilated aorta with maximum diameter of 4.4 cm.
Pharmacologic nuclear stress test�on January 2023 showed abnormal perfusion imaging with small, mild apical inferior and apical lateral defect suggestive of mild ischemia.� No evidence of scar.� Systolic function was mildly reduced at 42% on stress
test.� Compared to prior study from 2020, apical lateral and apical inferior defects were present then but also inferior, mid inferior and inferolateral segments.� LVEF prior was 40%
Left heart catheterization�from July 28, 2015: Mild tapering of distal left main.� Complex high-grade stenosis from proximal to mid LAD involving the origin of a very large diagonal branch.� The mid LAD beyond the diagonal has a 60% stenosis and
60% distal stenosis.� Nonobstructive disease in the other arteries.� LV gram suggested an LVEF of 25 to 30%.� On August 01, 2015 he underwent a 3.0 x 28 mm Alpine Xience 5 drug-eluting stent to the ostial LAD
Left heart catheterization from May 10, 2023: LVEDP 14. Left main large vessel which gives rise to LAD and circumflex. 20% distal left main stenosis. Diffuse atherosclerotic in-stent restenosis up to 50% spanning ostial to mid LAD involving
origin of a very large diagonal branch. Mid LAD beyond diagonal branch has 50 to 60% stenosis and a focal 56% distal stenosis. iFR is grossly positive at 0.7 in the mid to distal LAD. 50 to 60% ostial diagonal stenosis. Circumflex is large with
bifurcating OM1 with 30 to 40% stenosis and diffuse atherosclerotic plaque. RCA is large dominant vessel moderately calcified with a high anterior origin from the aorta. Diffuse atherosclerotic plaque. Following this procedure patient was seen by
CT surgery and was deemed too high risk. Decision was made for medical therapy; could consider high risk PCI if fails medical therapy
Plan:
Presented 11/10/2023 with acute hypoxic respiratory failure requiring high flow oxygen with concerns for acute on chronic heart failure with reduced ejection fraction, proBNP was greater than 27,000. Patient had been off diuretics after
hospitalization in early June 2023 secondary to GER.
From a volume standpoint he is doing reasonably well but still appears volume overloaded. Weight is down 15 lbs if scale accurate. Currently on furosemide 80 mg IV twice daily with creatinine of approximately 4. Will defer to renal
In regards to his CKD he indicated he still wants to be treated aggressively. Reviewed nephrology note and patient wishes to move forward with dialysis process. Plan is for tunneled HD CVC 11/15/2023 and hope dialysis later this afternoon.
Still requiring oxygen, wean as tolerated. Continues on IV steroids.
Developed recurrent atrial fibrillation 11/13/2023. Amiodarone increased to 200 mg 3 times daily and double metoprolol ER to 12.5 twice daily starting . Converted back to sinus rhythm around 18:30 on 11/14/2023. Will reduce Amiodarone back
to 200 mg BID but continue increased Toprol as long as BP tolerates. If BP drops with dialysis evening dose can be held
Continue OAC w/ warfarin, INR 2.87.Consider stopping ASA given bleeding risk, anemia.
Repeat EKG on increased dose of amiodarone.
Acute on chronic anemia. Hemoglobin noted to be 6.4 on admission. He was transfused total of 3 units of blood 1 unit on 11/11/2023, 11/12/23, 11/13/23. Hemoglobin 7.7. Continue to monitor and trend.
Progress Note - Box Folding Machine Operator
Subjective
Date of Service: November 15, 2023
Patient seen and examined. Patient sitting up in chair. Patient remains on oxygen. Patient reports that he is feeling better.
Objective
Labs:
11/15/23 04:40
11/15/23 04:40
Labs
Hgb 7.7 g/dL (13.0-18.0) L 11/15/23 04:40
Hct 24.1 % (39.0-52.0) L 11/15/23 04:40
Plt Count 114 10^3/uL (130-400) L 11/15/23 04:40
PT 30.4 Sec (11.4-14.6) H 11/15/23 04:40
INR 2.87 11/15/23 04:40
Sodium 140 mmol/L (135-145) 11/15/23 04:40
Potassium 3.7 mmol/L (3.5-5.1) 11/15/23 04:40
BUN 147 mg/dl (9-20) H* 11/15/23 04:40
Creatinine 4.0 mg/dL (0.7-1.3) H 11/15/23 04:40
Glucose 87 mg/dl (70-99) 11/15/23 04:40
Vital Signs and I&O:
Vital Signs
Temp Pulse Resp BP Pulse Ox
97.3 F 67 20 129/47 96
11/15/23 07:20 11/15/23 07:42 11/15/23 07:42 11/15/23 06:00 11/15/23 07:42
Vital Signs
Temp Pulse Resp BP Pulse Ox
97.3 F 67 20 129/47 96
11/15/23 07:20 11/15/23 07:42 11/15/23 07:42 11/15/23 06:00 11/15/23 07:42
Intake & Output
11/13/23 11/14/23 11/15/23 11/16/23
06:59 06:59 06:59 06:59
Intake Total 745 / 745 240 / 240 480 / 480
Output Total 3200 / 3200 2300 / 2300 925 / 925 275 / 275
Balance -2455 / -2455 -2060 / -2060 -445 / -445 -275 / -275
Physical Exam
Physical Exam
GEN: No distress, awake, Ox3, sitting up in chair wearing oxygen
HEENT: supple, anicteric, mmm
LUNGS: Coarse breath sounds bilaterally with faint wheezes; on 6 L oxygen via nasal cannula
CV: Reg, S1/S2, 1/6 syst LSB, no murmur
ABD: soft, BS+, NT/ND
EXT: +1-2 bilateral lower extremity pitting edema, no clubbing/cyanosis
NEURO: Gross non-focal
SKIN: No rash, warm, dry, pink
[2023-11-15] MEDS: NOVOLOG FLEXPEN-LOW RESISTANCE 1 UNITS SC (12:14)
[2023-11-15 12:22] LABS: Glucose - Point of Care 152 mg/dl (70-99)
[2023-11-15] MEDS: ANCEF 10 IV (12:48)
[2023-11-15] MEDS: NOVOLOG FLEXPEN 15 UNITS SC ×2 (14:41→17:50)
[2023-11-15] MEDS: LASIX IV (14:43)
[2023-11-15 14:49] LABS: Hepatitis B Surface Antigen Negative (Negative)
[2023-11-15] MEDS: MANNITOL 25% 12.5 GRAMS IV ×2 (14:51→16:19)
[2023-11-15] MEDS: FLEXBUMIN 25% FOR HEMODIALYSIS 12.5 GRAMS IV ×2 (14:52→16:18)
--- NOTE | 2023-11-15 14:52 | W.PN.NEPH.HD ---
Assessment
-
Patient seen on HD
mannitol times two
low qb
sbp stable at current u/f
Hd again tomorrow
Progress Note - Hemodialysis
-
Date of Service: November 15, 2023
Duration: 15 minutes and 2 hours
Potassium Bath: 3
Calcium Bath: 2.5
Opti-Dialyzer: 160
Ultrafiltration: Other (1kg)
Blood Flow: 200
Dialysate Flow: 600
Heparin: none
EPO: none
[2023-11-15 15:07] LABS: Hepatitis B Core Ab, Total Negative (Negative); Hepatitis B Surface Antibody Negative; Hepatitis C Antibody Negative (Negative)
[2023-11-15] MEDS: PROSCAR 5 MG PO (17:48)
[2023-11-15] MEDS: CRESTOR 5 MG PO (17:49)
[2023-11-15] MEDS: FEOSOL 325 MG PO (17:49)
[2023-11-15] MEDS: COUMADIN 2 MG PO (17:49)
[2023-11-15 17:54] LABS: Glucose - Point of Care 141 mg/dl (70-99)
[2023-11-15] MEDS: LANTUS 0.149999999999999994 UNITS SC (21:33)
[2023-11-15 21:40] LABS: Glucose - Point of Care 126 mg/dl (70-99)
--- NOTE | 2023-11-15 23:16 | PTCARENOTE ---
Upon turning pt to his back from left side this RN observed blood across chest of pt's gown. Upon further assessment new right IJ HD cath saturated with blood oozing down right side of chest. Clotting appears to have started. David ENAMORADO reinforced HD
cath dressing with additional gauze dressing. Pt cleansed and gown changed. Thin blue pad placed underneath pt's right axillary for any further bleeding. Pt denies any pain or discomfort. He stated he had no idea that he was bleeding. At change of
shift site was c/d/i. At present time there does not appear to be any active bleeding. When original dressing pressed there is small amount bloody oozing. Pt currently resting comfortably. Call gibbons remains within reach. Will continue to monitor.
[2023-11-16] VITALS (27 sets, daily range): BP systolic 104–128; BP diastolic 44–82; PULSE 2–60; BMI 21.2
--- NOTE | 2023-11-16 00:48 | PTCARENOTE ---
Dressing continues with bloody drainage on reinforced right IJ HD catheter dressing. IV team RN Debra paged and down to see pt. Bloody dressing removed. No obvious clot observed at site. Catheter remains sutured and intact bu oozing small amount
blood. Site cleansed. Gauze and ABD applied. 1.5lb weight applied to site. Pt continues to deny any pain or discomfort. Call gibbons remains within reach. Will continue to monitor.
--- NOTE | 2023-11-16 04:11 | PTCARENOTE ---
Pt continues to bleed out from right IJ HD cath. Bleeding down right chest and throughout sheets on right chest side. Spoke with IV team Pito ENAMORADO. She stated she was not able to find anything in the available literature that quick clot could be used
for HD cath so she is not comfortable using. Amparo ROUSE TT'd and made aware that pt has been bleeding for HD site since 2299, that dressing was reinforced at first than IV team RN redressing entire dressing and pressure has been applied yet site
continues to bleed. VSS. Pt denies any pain or discomfort. No further orders from Amparo ROUSE. Rosey ROUSE on floor and made aware. Rosey ROUSE took down entire dressing and redressed using seaweed dressing. AM labs obtained. Linens changed and pt
requested he come off CPAP. Call gibbons remains within reach. Pt currently on phone with his . Will continue to monitor.
[2023-11-16 04:13] LABS: % Basophils 0.1 % (0-2); % Immature Granulocytes 2.5 % (0-0.5); % Lymphocytes 3.2 % (20.5-51.1); % Monocytes 2.6 % (1.7-9.3); % Neutrophils 91.6 % (42.2-75.2); Absolute Immature Granulocytes 0.3 10^3/uL (0-0.05); Absolute Lymphocytes 0.4 10^3/uL (1.2-3.4); Absolute Monocytes 0.3 10^3/uL (0.1-0.6); Absolute Neutrophils 11.5 10^3/uL (1.4-6.5); Hematocrit 22.5 % (39.0-52.0); Mean Corp Hgb Conc. 30.7 g/dL (33.0-37.0); Mean Corpuscular Hgb 28.8 pg (27.0-31.0); Mean Corpuscular Volume 93.8 fL (80.0-94.0); Mean Platelet Volume 11.1 fL (7.4-10.4); Nucleated Red Blood Cells % 0.3 % (-); Platelet Count 103 10^3/uL (130-400); Red Cell Dist. Width 20.8 % (11.5-14.5); White Blood Cell Count 12.5 10^3/uL (4.8-10.8)
[2023-11-16 04:23] LABS: Hemoglobin 6.9 g/dL (13.0-18.0)
[2023-11-16 04:52] LABS: Blood Urea Nitrogen 102 mg/dl (9-20); Calcium 8.2 mg/dl (8.4-10.2); Carbon Dioxide 25 mmol/L (22-30); Chloride 106 mmol/L (98-107); Estimated Creatinine Clearance 19 ml/min; Glucose 126 mg/dl (70-99); Potassium 3.8 mmol/L (3.5-5.1); Sodium 140 mmol/L (135-145); eGFR 20.94
[2023-11-16 05:05] LABS: INR 3.68; PT 36.5 Sec (11.4-14.6)
--- NOTE | 2023-11-16 05:12 | W.PN.UPDATE ---
Update Note
Progress Note Update
Patient morning labs resulted:
- Hgb 6.9/Hct 22.5 down from Hgb 7.7/Hct 24.1 with active bleeding at insertion site of tunneled HD catheter.
- PT 36.5/INR 3.68
Plan:
- Ordered 1 unit PRBCs
- Placed Coumadin in hold for elevated INR
--- NOTE | 2023-11-16 06:31 | PTCARENOTE ---
Drainage pad changed underneath pt's right side d/t bloody drainage from [facility] cath. Hgb this am 6.9 (7.7 yesterday). T&S obtained. One unit PRBC ordered. Coumadin on hold. Will update day shift RN during report.
[2023-11-16] MEDS: NOVOLOG FLEXPEN-LOW RESISTANCE SC ×2 (07:13→11:59)
[2023-11-16] MEDS: NOVOLOG FLEXPEN 15 UNITS SC ×2 (07:14→17:39)
[2023-11-16] MEDS: PACERONE 200 MG PO ×2 (07:14→21:10)
[2023-11-16] MEDS: NITRO-DUR 0.599999999999999978 MG TRANSDERM (07:14)
[2023-11-16] MEDS: ASPIR LOW (ENTERIC COATED) 81 MG PO (07:14)
[2023-11-16] MEDS: DECADRON 4 MG PO (07:15)
[2023-11-16] MEDS: TOPROL XL 12.5 MG PO ×2 (07:15→21:09)
[2023-11-16] MEDS: FARXIGA 5 MG PO (07:15)
[2023-11-16] MEDS: LASIX 80 MG IV ×2 (07:15→16:06)
[2023-11-16] MEDS: MUCINEX 600 MG PO ×2 (07:15→21:09)
[2023-11-16] MEDS: SODIUM BICARBONATE 650 MG PO (07:15)
[2023-11-16] MEDS: DUONEB 3 ML INH ×2 (07:20→19:08)
[2023-11-16] MEDS: PULMICORT 0.5 MG INH ×2 (07:20→19:08)
[2023-11-16 07:32] LABS: Glucose - Point of Care 110 mg/dl (70-99)
--- NOTE | 2023-11-16 09:49 | PN.IRAD.UPD ---
Update Note - IRAD
- -
WENT BEDSIDE TO CHANGE HD CATHETER DRESSING DUE TO BLEEDING OVERNIGHT. CLEANED AND REDRESSED AREA WITH QUICKCLOT, D-STAT, GAUZE, AND TEG. NO BLEEDING NOTED, SPOKE WITH NURSE WELL.
--- NOTE | 2023-11-16 10:19 | W.PN.HOSP.TC ---
Today's Communication/Plan
-
Hold warfarin
Transfuse
Labs in the morning
Assessment / Plan
Assessment / Plan
Gen-AAOx3, NAD
HEENT-NC, AT, anicteric, clear oral mm
Neck-supple
CV-reg, no M, +S1/S2
Lungs-bilateral rales, rhonchi
Abd-soft, NT, ND
Ext-no edema
Musculoskeletal-no cyanosis, clubbing
Skin-warm and dry
Neuro-grossly non-focal
Psych-calm, cooperative
Acute on chronic hypoxic respiratory failure -likely multifactorial etiology including acute on chronic heart failure, interstitial lung disease. Has underlying COPD, ABELARDO. Oxygenation improving, now on mid flow oxygen at 6 L. Wean down as able.
Not on home oxygen. Was on BiPAP last night.
Clinically doubt pneumonia. Off antibiotics.
Getting systemic steroids for possible interstitial lung process as per pulmonary, now on Decadron 4 mg p.o. daily. Consider discontinuing amiodarone if able, cardiology is lowering dose.
Acute on chronic heart failure with reduced EF exacerbation -very difficult to assess true volume status. Cardiology consulted. Discharged last week off diuretics. Continue IV Lasix. Weight coming down, I's and O's are negative. Ideally needs
right heart catheterization if cardiology agrees. Weight is down to 67 kg today, was 76 kg on admission..
Acute on chronic anemia -baseline hemoglobin averages 8-9, admission hemoglobin 6.4. Hemoglobin down to 6.9 this morning, fourth unit of blood ordered for today. Must use irradiated, leuko reduced. Does not need to be CMV negative, discussed with
Dr. Alexis.
Gets Aranesp q3 weeks by Dr Alexis, due for next dose this . We are unable to give Aranesp here in the hospital as it is nonformulary. Discussed with patient and .
Acute thrombocytopenia -platelet count 103k. Unclear etiology. Monitor for now.
CLL/MGUS/myelofibrosis -was on Momelotinib.
CKD 4 -creatinine relatively stable at 4.0. Temporary dialysis catheter placed, hemodialysis per nephrology. Patient tolerating.
Paroxysmal atrial fibrillation -on warfarin, amiodarone. INR 3.6 today. Warfarin to be held today.
CAD -stable.
COPD without exacerbation
DM2 without hypoglycemia -he is on Lantus 15 units at bedtime, Humalog 12 units AC at home, Farxiga 5 mg daily. Insulin doses adjusted by diabetes [employer] CL[employer]. Glucose 126 this morning.
Essential hypertension - stable.
Hyperlipidemia -on rosuvastatin.
History of CDAD -completed vancomycin taper.
BPH
Full-thickness coccyx/perineal ulcer, likely healing PI stage 3
Full code
Dispo -SNF when medically stable.
Anticipated Discharge: > 48 hours
Subjective/Interval History
-
Date of Service: November 16, 2023
Patient seen and examined. Shortness of breath improving at rest, still with dyspnea exertion.
Objective Data
-
Labs:
Laboratory Results
11/16/23 11/16/23
03:52 04:36
WBC 12.5 H
Hgb 6.9 L*
Hct 22.5 L
Plt Count 103 L
PT Cancelled 36.5 H
INR Cancelled 3.68
Sodium 140
Potassium 3.8
Chloride 106
Carbon Dioxide 25
BUN 102 H*
Creatinine 2.9 H
Glucose 126 H
Calcium 8.2 L
Vital Signs:
Vital Signs
Temp Pulse Resp BP Pulse Ox
97.4 F 66 17 119/44 92
11/16/23 09:53 11/16/23 09:53 11/16/23 09:53 11/16/23 09:53 11/16/23 09:47
I&O
11/15/23 11/16/23 11/17/23
06:59 06:59 06:59
Intake Total 480 / 480 360 / 360
Output Total 925 / 925 1250 / 1250 350 / 350
Balance -445 / -445 -1250 / -1250
Review of Systems
-
History Source: Patient
All other systems: Reviewed and negative
--- NOTE | 2023-11-16 10:48 | W.PN.CARDCBS ---
Today's Communication / Plan
-
Oozing from port site nursing to contact primary service and interventional radiology.
Hold warfarin
Reassess daily INR
Check EKG in a.m. on amiodarone
Impression / Plan
-
PCP: Rob Santos
Outpatient [employer] Guide: BRIGITTE Snow
Impression:
Presented 11/10/2023 with shortness of breath
Acute hypoxic respiratory failure
Acute on chronic heart failure with reduced ejection fraction
GER, on CKD stage IIIb/marked proteinuria
Recent admission w/ d/c 11/06/23 for acute hypoxic respiratory failure due to pneumonia/interstitial pneumonitis
History of C. difficile (on vancomycin)
Recent multiple hospitalizations including proctitis and pneumonia in June 2023
Recent prolonged admission following outpatient cardiac catheterization 05/10 - 05/21/2023
Coronary artery disease status post prior ostial LAD PCI in 2015 with recent cardiac catheterization noting diffusely positive IFR of the LAD back to the left main
Prior ischemic cardiomyopathy with LVEF of 25 to 30%, most recently recovered to 50-55% on echo
History of NSVT last admission
CLL/MGUS/Chronic anemia�management per Dr. 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 Aranesp initiated 05/09/23 every 3 weeks.
Paroxysmal atrial fibrillation, on chronic anticoagulation with Coumadin [history of hemoptysis and hematuria on Xarelto in 2017. Declined Eliquis]
COPD, not on home oxygen
C diff diarrhea
Hypertension
Hyperlipidemia
Type 2 diabetes mellitus
Mild cognitive decline / Frailty
Obstructive sleep apnea
Gout hx
IgG deficiency hx
Prior hematuria in 2015/history of BPH
Bleeding from port site
Echo 10/25/2023: EF 44%, global hypokinesis more prominent in mid and basal segments of anterior lateral wall. Mild to moderate MR. Mild AI. Mild TR.
Echo 09/02/23: EF 45-50% with mild global hypokinesis and more notable mid to apical anterolateral. EF 50-55% visual by echo Jun 2023.
Echocardiogram�from January 22, 2023 showed top normal LV size with low normal or mildly globally reduced systolic function, LVEF of 50 to 55%, thickened mitral valve leaflets with MAC and mild MR, aortic sclerosis with mild AI, normal right heart
with normal PA systolic pressure, dilated aorta with maximum diameter of 4.4 cm.
Pharmacologic nuclear stress test�on January 2023 showed abnormal perfusion imaging with small, mild apical inferior and apical lateral defect suggestive of mild ischemia.� No evidence of scar.� Systolic function was mildly reduced at 42% on stress
test.� Compared to prior study from 2020, apical lateral and apical inferior defects were present then but also inferior, mid inferior and inferolateral segments.� LVEF prior was 40%
Left heart catheterization�from July 28, 2015: Mild tapering of distal left main.� Complex high-grade stenosis from proximal to mid LAD involving the origin of a very large diagonal branch.� The mid LAD beyond the diagonal has a 60% stenosis and
60% distal stenosis.� Nonobstructive disease in the other arteries.� LV gram suggested an LVEF of 25 to 30%.� On August 01, 2015 he underwent a 3.0 x 28 mm Alpine Xience 5 drug-eluting stent to the ostial LAD
Left heart catheterization from May 10, 2023: LVEDP 14. Left main large vessel which gives rise to LAD and circumflex. 20% distal left main stenosis. Diffuse atherosclerotic in-stent restenosis up to 50% spanning ostial to mid LAD involving
origin of a very large diagonal branch. Mid LAD beyond diagonal branch has 50 to 60% stenosis and a focal 56% distal stenosis. iFR is grossly positive at 0.7 in the mid to distal LAD. 50 to 60% ostial diagonal stenosis. Circumflex is large with
bifurcating OM1 with 30 to 40% stenosis and diffuse atherosclerotic plaque. RCA is large dominant vessel moderately calcified with a high anterior origin from the aorta. Diffuse atherosclerotic plaque. Following this procedure patient was seen by
CT surgery and was deemed too high risk. Decision was made for medical therapy; could consider high risk PCI if fails medical therapy
Plan:
Presented 11/10/2023 with acute hypoxic respiratory failure requiring high flow oxygen with concerns for acute on chronic heart failure with reduced ejection fraction, proBNP was greater than 27,000. Patient had been off diuretics after
hospitalization in early June 2023 secondary to GER. He now started hemodialysis for volume. Continue nephrology follow-up.
Still requiring oxygen, wean as tolerated. Continues on IV steroids.
Developed recurrent atrial fibrillation 11/13/2023. Amiodarone increased to 200 mg 2 times daily and double metoprolol ER to 12.5 twice daily starting . Converted back to sinus rhythm.
Continue OAC w/ warfarin, INR elevated 3.68. Continue to follow.
EKG on amiodarone with visually stable QT interval. Reassess in morning.
Acute on chronic anemia. Plan is for transfusion.
Bleeding around his port site with multiple bandage changes. Discussed with nursing who relayed to primary service and interventional radiology.
Progress Note - [employer] Guide
Subjective
Date of Service: November 16, 2023
Short of breath no other complaint.
Objective
Labs:
11/16/23 03:52
11/16/23 03:52
Labs
Hgb 6.9 g/dL (13.0-18.0) L* 11/16/23 03:52
Hct 22.5 % (39.0-52.0) L 11/16/23 03:52
Plt Count 103 10^3/uL (130-400) L 11/16/23 03:52
PT 36.5 Sec (11.4-14.6) H 11/16/23 04:36
INR 3.68 11/16/23 04:36
Sodium 140 mmol/L (135-145) 11/16/23 03:52
Potassium 3.8 mmol/L (3.5-5.1) 11/16/23 03:52
BUN 102 mg/dl (9-20) H* 11/16/23 03:52
Creatinine 2.9 mg/dL (0.7-1.3) H 11/16/23 03:52
Glucose 126 mg/dl (70-99) H 11/16/23 03:52
Vital Signs and I&O:
Vital Signs
Temp Pulse Resp BP Pulse Ox
97.4 F 66 17 119/44 92
11/16/23 09:53 11/16/23 09:53 11/16/23 09:53 11/16/23 09:53 11/16/23 09:47
Vital Signs
Temp Pulse Resp BP Pulse Ox
97.4 F 66 17 119/44 92
11/16/23 09:53 11/16/23 09:53 11/16/23 09:53 11/16/23 09:53 11/16/23 09:47
Intake & Output
11/14/23 11/15/23 11/16/23 11/17/23
06:59 06:59 06:59 06:59
Intake Total 240 / 240 480 / 480 360 / 360
Output Total 2300 / 2300 925 / 925 1250 / 1250 350 / 350
Balance -2060 / -2060 -445 / -445 -1250 / -1250
Physical Exam
Physical Exam
General: Frail elderly man
Neck: Supple, no JVD, HJR, carotids +2 B/L, no bruits bilaterally.
Heart: Distant heart sounds
Lungs: Oxygen in place coarse anterior breath sounds
Extremities: No clubbing, cyanosis and trace edema bilaterally.
Neuro: Grossly nonfocal, awake, alert and oriented x3.
[2023-11-16] MEDS: NOVOLOG FLEXPEN SC (12:00)
[2023-11-16] MEDS: MANNITOL 25% 12.5 GRAMS IV ×2 (12:07→13:12)
[2023-11-16 12:10] LABS: Glucose - Point of Care 94 mg/dl (70-99)
--- NOTE | 2023-11-16 12:26 | W.PN.NEPH.HD ---
Assessment
-
Patient seen on HD
extensive bleeding from new tunneled hD catheter, evaluated by IR
INR >3, coumadin held
next HD Saturday
sbp stable at current u/f
Progress Note - Hemodialysis
-
Date of Service: November 16, 2023
Duration: 30 minutes and 2 hours
Potassium Bath: 3
Calcium Bath: 2.5
Opti-Dialyzer: 160
Ultrafiltration: Other (1kg)
Blood Flow: 300
Dialysate Flow: 600
Heparin: none
EPO: none
--- NOTE | 2023-11-16 13:12 | W.PN.PUL3 ---
Today's Communication / Plan
-
Continue oral dexamethasone
Dialysis
Wean down oxygen
Increase activity as able
Nebulizer therapy
Will reevaluate on Saturday
Assessment
-
83-year-old man with extensive past medical history. Recently discharged from the hospital, at that time he was admitted with similar complaints of worsening shortness of breath and hypoxemia. He was treated with IV diuretics also he was given
high-dose of the steroids. At that time chest x-ray clear prior to discharge. Plan was to discharge steroids for anti-inflammatory properties, patient is reluctant to use systemic prednisone.
He did complete a course of Zosyn as well. He was discharged on 1 L of supplemental oxygen. Comes back with worsening shortness of breath and hypoxemia up to requiring high flow oxygen. Chest x-ray abnormal after complete clearance prior to
discharge.
-
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
gout, BPH
Impression:
#Acute respiratory failure with hypoxia-currently on high flow oxygen.
#Bilateral infiltrates-likely acute pulmonary edema, proBNP >81461
#Acute on chronic anemia-no evidence for bleeding.
#Acute HFmrEF exacerbation (LVEF: 44% via TTE from 10-25-2023)
#Mild-moderate MR
#Sacral decubitus ulcer present on admission.
#Hx of asthma/copd not in an acute exacerbation
#Hx of ABELARDO on auto-BiPAP
#History of bronchiectasis on vest therapy at home
Plan:
Respiratory decompensation fairly rapid after discharge-acute on chronic HF exacerbation, proBNP >34560
Supplemental oxygen as needed-was discharged on 1 L-on 11/06/2023
BiPAP/noninvasive ventilation if needed-was on BiPAP 12/5 cm with a history of obstructive sleep apnea-tolerating
Initially on high flow now, now transitioned to 7L midflow, continue to wean
Patient has been transitioned to Decadron 4 mg daily since 11/16/2023. Very slow taper in the outpatient setting seems to be responding to steroids.
Has allergy to prednisone noted in record
Mucolytic's
Aspiration precautions
Nebulizers-budesonide and DuoNebs
CT chest 11/12/2023 summarized below
Currently no strong evidence for infection.
Procalcitonin is slightly elevated-not valid inpatient with elevated creatinine and BUN at this point
Observe off antibiotics
Continue with the diuresis as tolerated
Hemodialysis started.
Nephrology following for
Amiodarone 200 mg daily-this dose usually does not cause pulmonary toxicity, however, will monitor closely
Continue to hold momelotinib -review adverse effect profile. No mention for interstitial lung pneumonia but increased risk of respiratory failure and pneumonia.
states the patient has not received since prior admission.
Momelotinib -continues to be on hold rule out drug-induced pneumonitis-on the steroids as above.
Hemoglobin management per primary team. Transfuse as necessary.
INR elevated now Coumadin on hold
Monitor thrombocytopenia
Transfuse as needed
Sacral decubitus ulcers-local care
DVT prophylaxis-SCDs. On Coumadin.
Outpatient follow-up with Dr. Camara after discharge.
updated by Dr. Rivera 11/12/2023.
Continue with current care.
Will reevaluate again on Saturday.

Diagnostic Data:
CXR 10-24-2023: The heart size is within the limits of normal. There are bilateral airspace and interstitial infiltrates, right greater than left, consistent with diffuse pneumonia.Regional skeleton intact.
CT of the chest 11/12/2023: Reviewed showed extensive bilateral ground glass opacities. Bilateral small pleural effusions. Differential diagnosis continues to be pulmonary edema versus inflammatory pneumonitis.
Discussed with nephrology given stability and weight felt that probably volume overload not playing significant role. Difficult to assess clinically.
Echo 10/25/2023: EF 44%, global hypokinesis more prominent in mid and basal segments of anterior lateral wall. Mild to moderate MR. Mild AI. Mild TR.
Echo 09/02/23: EF 45-50% with mild global hypokinesis and more notable mid to apical anterolateral. EF 50-55% visual by echo Jun 2023.
Echocardiogram�from January 22, 2023 showed top normal LV size with low normal or mildly globally reduced systolic function, LVEF of 50 to 55%, thickened mitral valve leaflets with MAC and mild MR, aortic sclerosis with mild AI, normal right heart
with normal PA systolic pressure, dilated aorta with maximum diameter of 4.4 cm.
Pharmacologic nuclear stress test�on January 2023 showed abnormal perfusion imaging with small, mild apical inferior and apical lateral defect suggestive of mild ischemia.� No evidence of scar.� Systolic function was mildly reduced at 42% on stress
test.� Compared to prior study from 2020, apical lateral and apical inferior defects were present then but also inferior, mid inferior and inferolateral segments.� LVEF prior was 40%
Left heart catheterization�from July 28, 2015: Mild tapering of distal left main.� Complex high-grade stenosis from proximal to mid LAD involving the origin of a very large diagonal branch.� The mid LAD beyond the diagonal has a 60% stenosis and
60% distal stenosis.� Nonobstructive disease in the other arteries.� LV gram suggested an LVEF of 25 to 30%.� On August 01, 2015 he underwent a 3.0 x 28 mm Alpine Xience 5 drug-eluting stent to the ostial LAD
Left heart catheterization from May 10, 2023: LVEDP 14. Left main large vessel which gives rise to LAD and circumflex. 20% distal left main stenosis. Diffuse atherosclerotic in-stent restenosis up to 50% spanning ostial to mid LAD involving
origin of a very large diagonal branch. Mid LAD beyond diagonal branch has 50 to 60% stenosis and a focal 56% distal stenosis. iFR is grossly positive at 0.7 in the mid to distal LAD. 50 to 60% ostial diagonal stenosis. Circumflex is large with
bifurcating OM1 with 30 to 40% stenosis and diffuse atherosclerotic plaque. RCA is large dominant vessel moderately calcified with a high anterior origin from the aorta. Diffuse atherosclerotic plaque. Following this procedure patient was seen by
CT surgery and was deemed too high risk. Decision was made for medical therapy; could consider high risk PCI if fails medical therapy
Subjective Data
-
Date of Service:
Date of Service: November 16, 2023
Chief Complaint: Pulmonary Follow Up (Hypoxemic respiratory failure-abnormal CT chest) and Dyspnea Follow Up
Subjective:
No new events from the pulmonary perspective.
Remains on nasal cannula oxygen 7 L
Received dialysis today.
Bleeding from central line noted. INR is elevated.
Review of Systems
HEENT: Epistaxis (n)
Cardiopulmonary: Hemoptysis (n)
GI: Abdominal Pain (n) and Nausea (n)
Objective Data
Data Reviewed
Vital Signs / I&O / Oxygen:
Vital Signs
Temp Pulse Resp BP Pulse Ox
97.8 F 66 17 119/44 93
11/16/23 11:00 11/16/23 09:53 11/16/23 09:53 11/16/23 09:53 11/16/23 10:50
Intake and Output
11/15/23 11/16/23 11/17/23
06:59 06:59 06:59
Intake Total 480 / 480 360 / 360
Output Total 925 / 925 1250 / 1250 350 / 350
Balance -445 / -445 -1250 / -1250 10 / 10
SaO2 93
Nasal Cannula flow liters per 7
minute
Physical Exam
General: Respiratory Distress (n) and Comfortable
HEENT: Normocephalic, Anicteric and Moist Mucous Membranes
Cardiovascular: S1-S2 and Regular Rhythm
Respiratory: Crackles (bases, slight), Non-Labored Respirations, Accessory Resp Muscle Use and Stridor (n)
GI: Soft, Non Distended and Non Tender
Neurology: Awake, Alert, Oriented, AO x 3 and No Motor Deficits
Skin: Warm, Good Color, Cyanosis (n), Jaundice (n) and Rash (n)
Labs/Micro/Reports
Lab Data
11/16/23 03:52
11/16/23 03:52
Laboratory Results
11/16/23 11/16/23
03:52 04:36
PT Cancelled 36.5 H
INR Cancelled 3.68
Microbiology
11/11/23 00:17 Blood/Venous Blood Culture - Final
No Growth - Final Report
11/10/23 23:47 Blood/Venous Blood Culture - Final
No Growth - Final Report
[2023-11-16 14:58] LABS: Glucose - Point of Care 126 mg/dl (70-99)
--- NOTE | 2023-11-16 17:02 | PTCARENOTE ---
Assumed care of Pt at shift change; Pt resting comfortably in bed. HD cath site bleeding - dressing had been reinforced and changed numerous times overnight. IV made aware and IR notified. VAT nurse redressed site; IR nurse arrived to assess
site - quick clot applied with pressure dressing. Small amount of drainage noted on dressing, but no further issues. Pt received HD @ noon. Will continue to monitor and assess.
[2023-11-16 17:29] LABS: Glucose - Point of Care 179 mg/dl (70-99)
[2023-11-16] MEDS: NOVOLOG FLEXPEN-LOW RESISTANCE 1 UNITS SC (17:39)
[2023-11-16] MEDS: FEOSOL 325 MG PO (17:41)
[2023-11-16] MEDS: PROSCAR 5 MG PO (17:41)
[2023-11-16] MEDS: CRESTOR 5 MG PO (17:41)
[2023-11-16] MEDS: LANTUS 0.149999999999999994 UNITS SC (21:10)
[2023-11-16 21:20] LABS: Glucose - Point of Care 119 mg/dl (70-99)
[2023-11-17] VITALS (15 sets, daily range): BP systolic 95–147; BP diastolic 46–62; PULSE 2–69; O2SAT 91; BMI 20.3
--- NOTE | 2023-11-17 01:46 | PTCARENOTE ---
Pt more tired tonight. Has been sleeping since CPAP placed. HD cath dressing intact with old drainage underneath dressing. No bleeding noted around dressing. VSS. Afebrile. SR/BBB/PQT on CM. Using urinal to void. No change from previous assessment.
Call gibbons remains within reach. Will continue to monitor.
[2023-11-17 04:51] LABS: INR 2.69; PT 28.5 Sec (11.4-14.6)
[2023-11-17 04:57] LABS: % Basophils 0.1 % (0-2); % Eosinophils 0.1 % (0-6); % Immature Granulocytes 1.4 % (0-0.5); % Lymphocytes 3.3 % (20.5-51.1); % Monocytes 2.2 % (1.7-9.3); % Neutrophils 92.9 % (42.2-75.2); Absolute Immature Granulocytes 0.2 10^3/uL (0-0.05); Absolute Lymphocytes 0.4 10^3/uL (1.2-3.4); Absolute Monocytes 0.2 10^3/uL (0.1-0.6); Absolute Neutrophils 9.7 10^3/uL (1.4-6.5); Hematocrit 22.4 % (39.0-52.0); Hemoglobin 7.4 g/dL (13.0-18.0); Mean Corpuscular Hgb 29.8 pg (27.0-31.0); Mean Corpuscular Volume 90.3 fL (80.0-94.0); Mean Platelet Volume 12.7 fL (7.4-10.4); Nucleated Red Blood Cells % 0.5 % (-); Platelet Count 110 10^3/uL (130-400); Red Blood Cell Count 2.48 10^6/uL (4.70-6.10); Red Cell Dist. Width 20.3 % (11.5-14.5); White Blood Cell Count 10.5 10^3/uL (4.8-10.8)
[2023-11-17 05:03] LABS: Blood Urea Nitrogen 63 mg/dl (9-20); Calcium 7.6 mg/dl (8.4-10.2); Carbon Dioxide 33 mmol/L (22-30); Chloride 103 mmol/L (98-107); Estimated Creatinine Clearance 25 ml/min; Glucose 52 mg/dl (70-99); Potassium 3.8 mmol/L (3.5-5.1); Sodium 138 mmol/L (135-145); eGFR 30.85
[2023-11-17 05:36] LABS: Glucose - Point of Care 88 mg/dl (70-99)
--- NOTE | 2023-11-17 05:40 | PTCARENOTE ---
Glucose this am 52. Pt awake and asymptomatic. Received 4oz OJ with recheck resulting 88. Pt resting comfortably. Will continue to monitor.
[2023-11-17 07:13] LABS: Glucose - Point of Care 101 mg/dl (70-99)
[2023-11-17] MEDS: PULMICORT 0.5 MG INH ×2 (07:19→20:00)
[2023-11-17] MEDS: DUONEB 3 ML INH ×2 (07:19→20:09)
--- NOTE | 2023-11-17 09:06 | W.PN.NEPH.PH ---
Today's Communication / Plan
-
HD tomorrow
Assessment/Plan
-
Chronic kidney disease stage IV
Acute on chronic hypoxic respiratory
COPD/interstitial lung disease/recent pneumonia
History of congestive heart failure
Anemia
CLL/MGUS/myelofibrosis
Type 2 diabetes
Hypertension
BPH
History of C. difficile (on vancomycin)
Metabolic acidosis
Plan:
-Third dialysis treatment planned for tomorrow
-Catheter site with less bleeding
-Hemodynamically stable
-Anemia better s/p transfusion
steroids for possible pneumonitis per pulm
-HD tomorrow orders provided
-
-
Date of Service: November 17, 2023
CC / HPI / ROS
-
Chief Complaint:
CKD stage IV
History of Present Illness:
Hemodynamically stable on amlodipine
HD times two perforemed
Review of Systems:
Nonoliguric
Weights down
sob with minimal exertion slowly improving
Labs
-
Labs:
WBC 10.5 10^3/uL (4.8-10.8) 11/17/23 04:25
RBC 2.48 10^6/uL (4.70-6.10) L 11/17/23 04:25
Hgb 7.4 g/dL (13.0-18.0) L 11/17/23 04:25
Hct 22.4 % (39.0-52.0) L 11/17/23 04:25
Plt Count 110 10^3/uL (130-400) L 11/17/23 04:25
Sodium 138 mmol/L (135-145) 11/17/23 04:25
Potassium 3.8 mmol/L (3.5-5.1) 11/17/23 04:25
Chloride 103 mmol/L (98-107) 11/17/23 04:25
Carbon Dioxide 33 mmol/L (22-30) H 11/17/23 04:25
BUN 63 mg/dl (9-20) H 11/17/23 04:25
Creatinine 2.1 mg/dL (0.7-1.3) H 11/17/23 04:25
eGFR 30.85 11/17/23 04:25
Glucose 52 mg/dl (70-99) L* 11/17/23 04:25
Calcium 7.6 mg/dl (8.4-10.2) L 11/17/23 04:25
Phosphorus 4.9 mg/dl (2.5-4.5) H 11/11/23 06:36
Fqi-M-Tvdetfjqwvg Pept > 39200 pg/ml 11/10/23 23:47
Albumin 2.9 g/dl (3.5-5.0) L 11/10/23 23:47
Physical Exam
-
Vital Signs:
Vital Signs
Temp Pulse Resp BP Pulse Ox
97.8 F 73 16 116/47 99
11/17/23 02:58 11/17/23 07:23 11/17/23 07:23 11/17/23 04:00 11/17/23 07:23
Cardiovascular:: Regular rate and rhythm
Respiratory:: Bilateral: CTA
Lung Excursion:: Normal
Abdomen:: Nontender and Soft
Extremity Edema:: +2: Bilateral:
Crespo Catheter: No
[2023-11-17 09:20] LABS: Glucose - Point of Care 170 mg/dl (70-99)
[2023-11-17] MEDS: NOVOLOG FLEXPEN 15 UNITS SC (10:13)
[2023-11-17] MEDS: PACERONE 200 MG PO ×2 (10:14→20:40)
[2023-11-17] MEDS: NOVOLOG FLEXPEN-LOW RESISTANCE SC ×3 (10:14→19:50)
[2023-11-17] MEDS: DECADRON 4 MG PO (10:15)
[2023-11-17] MEDS: LASIX 80 MG IV ×2 (10:15→17:14)
[2023-11-17] MEDS: ASPIR LOW (ENTERIC COATED) 81 MG PO (10:15)
[2023-11-17] MEDS: FARXIGA 5 MG PO (10:15)
[2023-11-17] MEDS: MUCINEX 600 MG PO ×2 (10:15→20:40)
[2023-11-17] MEDS: TOPROL XL 12.5 MG PO ×2 (10:16→20:40)
[2023-11-17] MEDS: NITRO-DUR 0.599999999999999978 MG TRANSDERM (10:16)
--- NOTE | 2023-11-17 11:05 | W.PN.HOSP.TC ---
Today's Communication/Plan
-
Lower dose of Lantus
Assessment / Plan
Assessment / Plan
Gen-AAOx3, NAD
HEENT-NC, AT, anicteric, clear oral mm
Neck-supple
CV-reg, no M, +S1/S2
Lungs-bilateral rales, rhonchi
Abd-soft, NT, ND
Ext-no edema
Musculoskeletal-no cyanosis, clubbing
Skin-warm and dry
Neuro-grossly non-focal
Psych-calm, cooperative
Acute hypoxic respiratory failure - likely multifactorial etiology including acute on chronic heart failure, interstitial lung disease. Has underlying COPD, ABELARDO. Oxygenation improving, now on NM oxygen at 4 L. Wean down as able. Not on home
oxygen. Was on BiPAP last night.
Clinically doubt pneumonia. Off antibiotics.
Getting systemic steroids for possible interstitial lung process as per pulmonary, now on Decadron 4 mg p.o. daily. Consider discontinuing amiodarone if able, cardiology is lowering dose.
Acute on chronic heart failure with reduced EF exacerbation -very difficult to assess true volume status. Cardiology consulted. Discharged last week off diuretics. Continue IV Lasix. Weight coming down, I's and O's are negative. Ideally needs
right heart catheterization if cardiology agrees. Weight is down to 67 kg today, was 76 kg on admission..
Acute on chronic anemia -baseline hemoglobin averages 8-9, admission hemoglobin 6.4. Hemoglobin down to 7.4 this morning, four units PRBC transfused so far. Must use irradiated, leuko reduced. Does not need to be CMV negative, discussed with .
Reuben.
Gets Aranesp q3 weeks by Dr Alexis, due for next dose this . We are unable to give Aranesp here in the hospital as it is nonformulary. Discussed with patient and .
Acute thrombocytopenia -platelet count 110k. Unclear etiology. Monitor for now.
CLL/MGUS/myelofibrosis -was on Momelotinib.
CKD 4 - Temporary dialysis catheter placed, hemodialysis per nephrology. Patient tolerating. Plan for dialysis on Saturday. Bleeding from dialysis catheter resolved.
Paroxysmal atrial fibrillation -on warfarin, amiodarone. INR 2.69 today. Resume warfarin at a lower dose of 1 mg at bedtime.
CAD -stable.
COPD without exacerbation
DM2 with hypoglycemia -he is on Lantus 15 units at bedtime, Humalog 12 units AC at home, Farxiga 5 mg daily. 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 Glucose 52 this morning. Will lower dose of Lantus to 12 units at bedtime.
Essential hypertension - stable.
Hyperlipidemia -on rosuvastatin.
History of CDAD -completed vancomycin taper.
BPH
Full-thickness coccyx/perineal ulcer, likely healing PI stage 3
Full code
Dispo -SNF when medically stable.
Anticipated Discharge: > 48 hours
Subjective/Interval History
-
Date of Service: November 17, 2023
Patient seen and examined. No new complaints.
Objective Data
-
Labs:
Laboratory Results
11/17/23
04:25
WBC 10.5
Hgb 7.4 L
Hct 22.4 L
Plt Count 110 L
PT 28.5 H
INR 2.69
Sodium 138
Potassium 3.8
Chloride 103
Carbon Dioxide 33 H
BUN 63 H
Creatinine 2.1 H
Glucose 52 L*
Calcium 7.6 L
Vital Signs:
Vital Signs
Temp Pulse Resp BP Pulse Ox
97.7 F 65 17 116/48 90
11/17/23 07:13 11/17/23 10:00 11/17/23 10:00 11/17/23 10:00 11/17/23 10:11
I&O
11/16/23 11/17/23 11/18/23
06:59 06:59 06:59
Intake Total 840 / 840 240 / 240
Output Total 1250 / 1250 1425 / 1425
Balance -1250 / -1250 -585 / -585 240 / 240
Review of Systems
-
History Source: Patient
All other systems: Reviewed and negative
--- NOTE | 2023-11-17 12:41 | W.PN.CARDCBS ---
Today's Communication / Plan
-
Volume management through dialysis
On increased dose amiodarone for A-fib currently in sinus rhythm telemetry stable
On Coumadin for anticoagulation INR is now 2.69. Primary service ordered 1 mg of Coumadin. Cautiously watch INR.
Impression / Plan
-
PCP: Rob Santos
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
Impression:
Presented 11/10/2023 with shortness of breath
Acute hypoxic respiratory failure
Acute on chronic heart failure with reduced ejection fraction
GER, on CKD stage IIIb/marked proteinuria
Recent admission w/ d/c 11/06/23 for acute hypoxic respiratory failure due to pneumonia/interstitial pneumonitis
History of C. difficile (on vancomycin)
Recent multiple hospitalizations including proctitis and pneumonia in June 2023
Recent prolonged admission following outpatient cardiac catheterization 05/10 - 05/21/2023
Coronary artery disease status post prior ostial LAD PCI in 2015 with recent cardiac catheterization noting diffusely positive IFR of the LAD back to the left main
Prior ischemic cardiomyopathy with LVEF of 25 to 30%, most recently recovered to 50-55% on echo
History of NSVT last admission
CLL/MGUS/Chronic anemia�management per Dr. 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 Aranesp initiated 05/09/23 every 3 weeks.
Paroxysmal atrial fibrillation, on chronic anticoagulation with Coumadin [history of hemoptysis and hematuria on Xarelto in 2017. Declined Eliquis]
COPD, not on home oxygen
C diff diarrhea
Hypertension
Hyperlipidemia
Type 2 diabetes mellitus
Mild cognitive decline / Frailty
Obstructive sleep apnea
Gout hx
IgG deficiency hx
Prior hematuria in 2015/history of BPH
Bleeding from port site
Echo 10/25/2023: EF 44%, global hypokinesis more prominent in mid and basal segments of anterior lateral wall. Mild to moderate MR. Mild AI. Mild TR.
Echo 09/02/23: EF 45-50% with mild global hypokinesis and more notable mid to apical anterolateral. EF 50-55% visual by echo Jun 2023.
Echocardiogram�from January 22, 2023 showed top normal LV size with low normal or mildly globally reduced systolic function, LVEF of 50 to 55%, thickened mitral valve leaflets with MAC and mild MR, aortic sclerosis with mild AI, normal right heart
with normal PA systolic pressure, dilated aorta with maximum diameter of 4.4 cm.
Pharmacologic nuclear stress test�on January 2023 showed abnormal perfusion imaging with small, mild apical inferior and apical lateral defect suggestive of mild ischemia.� No evidence of scar.� Systolic function was mildly reduced at 42% on stress
test.� Compared to prior study from 2020, apical lateral and apical inferior defects were present then but also inferior, mid inferior and inferolateral segments.� LVEF prior was 40%
Left heart catheterization�from July 28, 2015: Mild tapering of distal left main.� Complex high-grade stenosis from proximal to mid LAD involving the origin of a very large diagonal branch.� The mid LAD beyond the diagonal has a 60% stenosis and
60% distal stenosis.� Nonobstructive disease in the other arteries.� LV gram suggested an LVEF of 25 to 30%.� On August 01, 2015 he underwent a 3.0 x 28 mm Alpine Xience 5 drug-eluting stent to the ostial LAD
Left heart catheterization from May 10, 2023: LVEDP 14. Left main large vessel which gives rise to LAD and circumflex. 20% distal left main stenosis. Diffuse atherosclerotic in-stent restenosis up to 50% spanning ostial to mid LAD involving
origin of a very large diagonal branch. Mid LAD beyond diagonal branch has 50 to 60% stenosis and a focal 56% distal stenosis. iFR is grossly positive at 0.7 in the mid to distal LAD. 50 to 60% ostial diagonal stenosis. Circumflex is large with
bifurcating OM1 with 30 to 40% stenosis and diffuse atherosclerotic plaque. RCA is large dominant vessel moderately calcified with a high anterior origin from the aorta. Diffuse atherosclerotic plaque. Following this procedure patient was seen by
CT surgery and was deemed too high risk. Decision was made for medical therapy; could consider high risk PCI if fails medical therapy
Plan:
Presented 11/10/2023 with acute hypoxic respiratory failure requiring high flow oxygen with concerns for acute on chronic heart failure with reduced ejection fraction, proBNP was greater than 27,000. Patient had been off diuretics after
hospitalization in early June 2023 secondary to GER. He now started hemodialysis for volume control. Continue nephrology follow-up. Weight has decreased and breathing has improved. Continue volume management through dialysis.
Still requiring oxygen, wean as tolerated. Continues on steroids.
Developed recurrent atrial fibrillation 11/13/2023. Amiodarone increased to 200 mg 2 times daily and double metoprolol ER to 12.5 twice daily starting . Converted back to sinus rhythm.
Continue OAC w/ warfarin, INR was elevated now 2.69. Primary service ordered 1 mg of warfarin for tonight. Continue to follow.
EKG on amiodarone with visually stable QT interval.
Acute on chronic anemia. He did undergo transfusion.
Bleeding around his port site with multiple bandage changes. Improved today. Continue to follow. Defer to primary service.
Progress Note - Woven Blind Loom Tender
Subjective
Date of Service: November 17, 2023
He is going to work with physical therapy. He denies chest pain and palpitations.
Objective
Labs:
11/17/23 04:25
11/17/23 04:25
Labs
Hgb 7.4 g/dL (13.0-18.0) L 11/17/23 04:25
Hct 22.4 % (39.0-52.0) L 11/17/23 04:25
Plt Count 110 10^3/uL (130-400) L 11/17/23 04:25
PT 28.5 Sec (11.4-14.6) H 11/17/23 04:25
INR 2.69 11/17/23 04:25
Sodium 138 mmol/L (135-145) 11/17/23 04:25
Potassium 3.8 mmol/L (3.5-5.1) 11/17/23 04:25
BUN 63 mg/dl (9-20) H 11/17/23 04:25
Creatinine 2.1 mg/dL (0.7-1.3) H 11/17/23 04:25
Glucose 52 mg/dl (70-99) L* 11/17/23 04:25
Vital Signs and I&O:
Vital Signs
Temp Pulse Resp BP Pulse Ox
97.7 F 66 25 128/46 93
11/17/23 07:13 11/17/23 11:41 11/17/23 11:41 11/17/23 11:41 11/17/23 11:41
Vital Signs
Temp Pulse Resp BP Pulse Ox
97.7 F 66 25 128/46 93
11/17/23 07:13 11/17/23 11:41 11/17/23 11:41 11/17/23 11:41 11/17/23 11:41
Intake & Output
11/15/23 11/16/23 11/17/23 11/18/23
06:59 06:59 06:59 06:59
Intake Total 480 / 480 840 / 840 240 / 240
Output Total 925 / 925 1250 / 1250 1425 / 1425
Balance -445 / -445 -1250 / -1250 -585 / -585 240 / 240
Physical Exam
Physical Exam
General: Frail elderly man
Heart: Distant heart sounds non displaced PMI, RRR, no murmurs, No S3, S4, no rubs.
Lungs: Crackles at bases left greater than right
Extremities: No clubbing, cyanosis and trace edema bilaterally.
Neuro: Grossly nonfocal, awake, alert and oriented x3.
Ecchymosis
[2023-11-17] MEDS: DEXTROSE 50% SYRINGE 12.5 GRAMS IV (13:33)
--- NOTE | 2023-11-17 13:37 | PTCARENOTE ---
Patient blood sugar at lunch 28. Patient symptomatic slurring his words and drooling. Patient drowsy and not himself. Administered half an amp of dextrose. Within minutes patient feeling better. Gave patient juice. Rechecked BS now 156. Will
check BS in two hours.
[2023-11-17 13:42] LABS: Glucose - Point of Care 28 mg/dl (70-99)
[2023-11-17 14:00] LABS: Glucose - Point of Care 156 mg/dl (70-99)
--- NOTE | 2023-11-17 14:00 | PTCARENOTE ---
Dr. Stein notified regarding low blood sugars. Adjustment made to meal insulin.
[2023-11-17] MEDS: NOVOLOG FLEXPEN SC (14:14)
[2023-11-17 16:08] LABS: Glucose - Point of Care 94 mg/dl (70-99)
[2023-11-17] MEDS: CRESTOR 5 MG PO (17:15)
[2023-11-17] MEDS: COUMADIN 1 MG PO (17:15)
[2023-11-17] MEDS: FEOSOL 325 MG PO (17:15)
[2023-11-17] MEDS: PROSCAR 5 MG PO (17:15)
[2023-11-17 17:34] LABS: Glucose - Point of Care 109 mg/dl (70-99)
[2023-11-17 19:22] LABS: Glucose - Point of Care 123 mg/dl (70-99)
[2023-11-17] MEDS: NOVOLOG FLEXPEN 10 UNITS SC (19:50)
[2023-11-17] MEDS: LANTUS 0.119999999999999996 UNITS SC (21:23)
[2023-11-17 21:33] LABS: Glucose - Point of Care 458 mg/dl (70-99)
[2023-11-18] VITALS (53 sets, daily range): BP systolic 99–133; BP diastolic 45–77; PULSE 2–70; BMI 20.2
--- NOTE | 2023-11-18 03:13 | PTCARENOTE ---
PCT informed this nurse that Pt's HS accucheck read 'RR HI' on monitor. Requested tech to recheck blood sugar and new result was 226. This was the number documented on HS Lantus administration. The original result of the 'RR HI' or 458 appeared
in [employer] but the corrected result of 226 did not show up in [employer].
[2023-11-18 03:19] LABS: % Basophils 0.1 % (0-2); % Immature Granulocytes 1.1 % (0-0.5); % Lymphocytes 2.9 % (20.5-51.1); % Monocytes 2.5 % (1.7-9.3); % Neutrophils 93.4 % (42.2-75.2); Absolute Immature Granulocytes 0.1 10^3/uL (0-0.05); Absolute Lymphocytes 0.3 10^3/uL (1.2-3.4); Absolute Monocytes 0.3 10^3/uL (0.1-0.6); Absolute Neutrophils 10.1 10^3/uL (1.4-6.5); Hematocrit 22.8 % (39.0-52.0); Hemoglobin 7.5 g/dL (13.0-18.0); Mean Corp Hgb Conc. 32.9 g/dL (33.0-37.0); Mean Corpuscular Hgb 28.8 pg (27.0-31.0); Mean Corpuscular Volume 87.7 fL (80.0-94.0); Mean Platelet Volume 11.1 fL (7.4-10.4); Nucleated Red Blood Cells % 0.3 % (-); Platelet Count 101 10^3/uL (130-400); Red Cell Dist. Width 19.8 % (11.5-14.5); White Blood Cell Count 10.8 10^3/uL (4.8-10.8)
[2023-11-18 03:22] LABS: Glucose - Point of Care 90 mg/dl (70-99)
[2023-11-18 03:27] LABS: INR 2.24; PT 24.7 Sec (11.4-14.6)
[2023-11-18 03:52] LABS: Blood Urea Nitrogen 83 mg/dl (9-20); Calcium 7.7 mg/dl (8.4-10.2); Carbon Dioxide 29 mmol/L (22-30); Chloride 97 mmol/L (98-107); Estimated Creatinine Clearance 20 ml/min; Glucose 78 mg/dl (70-99); Sodium 133 mmol/L (135-145); eGFR 23.87
[2023-11-18 07:23] LABS: Glucose - Point of Care 125 mg/dl (70-99)
[2023-11-18] MEDS: DUONEB 3 ML INH ×2 (07:49→19:51)
[2023-11-18] MEDS: PULMICORT 0.5 MG INH ×2 (07:49→19:51)
[2023-11-18] MEDS: NOVOLOG FLEXPEN 10 UNITS SC ×3 (08:28→17:05)
[2023-11-18] MEDS: NOVOLOG FLEXPEN-LOW RESISTANCE SC ×3 (08:28→17:08)
[2023-11-18] MEDS: LASIX 80 MG IV ×2 (08:29→17:04)
[2023-11-18] MEDS: FLUSH (NSS) 1 FLUSH IV (08:30)
[2023-11-18] MEDS: TOPROL XL 12.5 MG PO ×2 (08:30→20:43)
[2023-11-18] MEDS: FARXIGA 5 MG PO (08:31)
[2023-11-18] MEDS: ASPIR LOW (ENTERIC COATED) 81 MG PO (08:31)
[2023-11-18] MEDS: PACERONE 200 MG PO ×2 (08:31→20:43)
[2023-11-18] MEDS: DECADRON 4 MG PO (08:31)
[2023-11-18] MEDS: MUCINEX 600 MG PO ×2 (08:31→20:43)
[2023-11-18] MEDS: NITRO-DUR 0.599999999999999978 MG TRANSDERM (08:32)
--- NOTE | 2023-11-18 08:50 | PN.DE.MGMTRT ---
Insulin Management
- -
11/18/2023: Diabetes Management F/U:
Pt readmitted 11/09 for acute respiratory hypoxia after a lengthy hospitalization 10/23 to 11/05 with Acute Hypoxic respiratory failure 2/2 to pneumonia +/- Interstitial Pneumonitis in setting of Momelotinib. PMH: CKD4, HFrEF, CLL/myelofibrosis, anemia
of chronic disease, PAFib, CAD, COPD, HTN, DLD, recent C-Diff, BPH
Current A1C 4.8%, Cr 4.0-->2.6 today, eGFR 14.24.
Pt states he has no known hx of Diabetes Mellitus but has taken insulin at home in the past and has working glucose monitor. States prior to this admission he has been monitoring his blood sugars before each meal and has noted range of 80-150 in
morning and higher glucose level in the evening. States he has been holding premeal insulin if blood sugar is <150 but consistently taking the Lantus every night.
Patient awake, alert, oriented, sitting up in bed, offers no complaints. Has tunneled cath in place for HD.
Dexamethasone continues at 4 mg Q 8 hours, tapered down to 4mg daily.
HS Lantus was reduced from 15 to 12 units yesterday due to hypoglycemia.
Glucose improving with steroid taper, Pre-dinner 226, down to 123 @HS, 90 @3AM and 78 fasting
Will make no changes to current Diabetes regimen: Farxiga 5 mg daily, Lantus 12 units @ HS and NovoLog 10 units AC with low corrective.
Diabetes History
- -
Type of Diabetes: 2 requiring insulin
Pre-Admission Diabetes Regimen
11/18/23
03:09
Creatinine 2.6 H
Lab Results
Hemoglobin A1c 4.8 % (4.0-5.6) 11/11/23 04:00
Insulin Pump Settings
IP Diabetes Regimen
11/17/23 11/17/23 11/17/23
09:08 13:26 13:42
Glucose
POC Glucose 170 H 28 L* 156 H
11/17/23 11/17/23 11/17/23
15:53 17:19 19:00
Glucose
POC Glucose 94 109 H 123 H
11/17/23 11/18/23 11/18/23
21:19 03:09 07:12
Glucose 78
POC Glucose 458 H* 90 125 H
Meal type: Breakfast
Meal type: Lunch
Meal type: Breakfast
Amount consumed: 100%
Amount consumed: 100%
Amount consumed: 75%
Patient Education
[2023-11-18 09:01] LABS: Glucose - Point of Care 226 mg/dl (70-99)
--- NOTE | 2023-11-18 09:32 | CM ---
Patient with Dx Acute on chronic hypoxic respiratory failure, HF, anemia. O2 4L. Receiving IV Lasix. PT & OT recommend skilled rehab.
Spoke with patient who agrees to a referral to [facility]. He has no preference of days of the week however prefers late morning/early afternoon start time. He agrees to a referral to [facility] for rehab.
Spoke with [facility]; initiated referral to [facility] MWF midmorning start time. Clinical information faxed.
Referral placed for [facility].
Plan follow up with [facility] for HD clearance.
Plan follow up with [facility] for acceptance.
--- NOTE | 2023-11-18 10:29 | W.PN.CARDCBS ---
Today's Communication / Plan
-
Stable cardiac status
Continue warfarin, metoprolol, amiodarone at current dosing
Defer to IR regarding management of bleeding around catheter
Impression / Plan
-
PCP: Rob Santos
Outpatient Jig Bore Operator: BRIGITTE Snow
Impression:
Presented 11/10/2023 with shortness of breath
Acute hypoxic respiratory failure
Acute on chronic heart failure with reduced ejection fraction
GER, on CKD stage IIIb/marked proteinuria
Recent admission w/ d/c 11/06/23 for acute hypoxic respiratory failure due to pneumonia/interstitial pneumonitis
History of C. difficile (on vancomycin)
Recent multiple hospitalizations including proctitis and pneumonia in June 2023
Recent prolonged admission following outpatient cardiac catheterization 05/10 - 05/21/2023
Coronary artery disease status post prior ostial LAD PCI in 2015 with recent cardiac catheterization noting diffusely positive IFR of the LAD back to the left main
Prior ischemic cardiomyopathy with LVEF of 25 to 30%, most recently recovered to 50-55% on echo
History of NSVT last admission
CLL/MGUS/Chronic anemia�management per Dr. 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 Aranesp initiated 05/09/23 every 3 weeks.
Paroxysmal atrial fibrillation, on chronic anticoagulation with Coumadin [history of hemoptysis and hematuria on Xarelto in 2017. Declined Eliquis]
COPD, not on home oxygen
C diff diarrhea
Hypertension
Hyperlipidemia
Type 2 diabetes mellitus
Mild cognitive decline / Frailty
Obstructive sleep apnea
Gout hx
IgG deficiency hx
Prior hematuria in 2016/history of BPH
Bleeding from port site
Echo 10/25/2023: EF 44%, global hypokinesis more prominent in mid and basal segments of anterior lateral wall. Mild to moderate MR. Mild AI. Mild TR.
Echo 09/02/23: EF 45-50% with mild global hypokinesis and more notable mid to apical anterolateral. EF 50-55% visual by echo Jun 2023.
Echocardiogram�from January 22, 2023 showed top normal LV size with low normal or mildly globally reduced systolic function, LVEF of 50 to 55%, thickened mitral valve leaflets with MAC and mild MR, aortic sclerosis with mild AI, normal right heart
with normal PA systolic pressure, dilated aorta with maximum diameter of 4.4 cm.
Pharmacologic nuclear stress test�on January 2023 showed abnormal perfusion imaging with small, mild apical inferior and apical lateral defect suggestive of mild ischemia.� No evidence of scar.� Systolic function was mildly reduced at 42% on stress
test.� Compared to prior study from 2020, apical lateral and apical inferior defects were present then but also inferior, mid inferior and inferolateral segments.� LVEF prior was 40%
Left heart catheterization�from July 28, 2015: Mild tapering of distal left main.� Complex high-grade stenosis from proximal to mid LAD involving the origin of a very large diagonal branch.� The mid LAD beyond the diagonal has a 60% stenosis and
60% distal stenosis.� Nonobstructive disease in the other arteries.� LV gram suggested an LVEF of 25 to 30%.� On August 01, 2015 he underwent a 3.0 x 28 mm Alpine Xience 5 drug-eluting stent to the ostial LAD
Left heart catheterization from May 10, 2023: LVEDP 14. Left main large vessel which gives rise to LAD and circumflex. 20% distal left main stenosis. Diffuse atherosclerotic in-stent restenosis up to 50% spanning ostial to mid LAD involving
origin of a very large diagonal branch. Mid LAD beyond diagonal branch has 50 to 60% stenosis and a focal 56% distal stenosis. iFR is grossly positive at 0.7 in the mid to distal LAD. 50 to 60% ostial diagonal stenosis. Circumflex is large with
bifurcating OM1 with 30 to 40% stenosis and diffuse atherosclerotic plaque. RCA is large dominant vessel moderately calcified with a high anterior origin from the aorta. Diffuse atherosclerotic plaque. Following this procedure patient was seen by
CT surgery and was deemed too high risk. Decision was made for medical therapy; could consider high risk PCI if fails medical therapy
Plan:
At this time, he is doing surprisingly well with the initiation of hemodialysis. Acute on chronic HFrEF seems well-controlled. Despite his severe CAD that optimally would be managed with CABG, he is stable from the standpoint of angina.
No cardiac complaints. Volume status looks good, he is not having angina, and remains in sinus rhythm on amiodarone 200 twice daily and metoprolol ER 12.5 twice daily. Warfarin is in therapeutic range on 1 mg a day.
Volume management per nephrology via dialysis
He is having some bleeding from around his hemodialysis catheter site, at present no changes, defer to interventional radiology whether changes are mandated.
From our standpoint okay to begin discharge planning. As outpatient we will need to reassess ejection fraction. We could also reconsider percutaneous coronary intervention if needed now that he is on dialysis, though the utility of this and
end-stage renal disease is limited.
Progress Note - Jig Bore Operator
Subjective
Date of Service: November 18, 2023:
Patient offers no complaints, for dialysis later today
PMH/PSH/FH/SH: Reviewed
Allergies: Atorvastatin, immunoglobulin, prednisone
Outpatient cardiac meds: Reviewed amiodarone 200 mg a day, amlodipine 10 mg a day, aspirin 81 mg daily dapagliflozin on 5 mg a day, metoprolol ER 12.5 mg a day Nitropatch 0.6 mg/h, rosuvastatin 5 mg a day, warfarin
Current meds: Aspirin 81 mg a day, Farxiga 5 mg a day, nitroglycerin patch 0.6 mg/h, rosuvastatin 5 mg a day, furosemide 80 mg IV twice daily, metoprolol ER 12.5 mg twice daily, amiodarone 200 mg twice daily, warfarin 1 mg daily
ROS: Negative except as above
122/51, pulse 59, afebrile
No distress head neck exam unremarkable, lungs are clear, regular rate and rhythm, soft systolic murmur at apex JVD okay, abdomen benign extremities without significant edema
White count 10.8, hemoglobin 7.5, platelets 101, sodium 133, potassium 4, BUN/creatinine 83 and 2.6
Chest x-ray today hemodialysis catheter in place, mild vascular congestion
INR is 2.24
Objective
Labs:
11/18/23 03:09
11/18/23 03:09
Labs
Hgb 7.5 g/dL (13.0-18.0) L 11/18/23 03:09
Hct 22.8 % (39.0-52.0) L 11/18/23 03:09
Plt Count 101 10^3/uL (130-400) L 11/18/23 03:09
PT 24.7 Sec (11.4-14.6) H 11/18/23 03:09
INR 2.24 11/18/23 03:09
Sodium 133 mmol/L (135-145) L 11/18/23 03:09
Potassium 4.0 mmol/L (3.5-5.1) 11/18/23 03:09
BUN 83 mg/dl (9-20) H 11/18/23 03:09
Creatinine 2.6 mg/dL (0.7-1.3) H 11/18/23 03:09
Glucose 78 mg/dl (70-99) 11/18/23 03:09
Vital Signs and I&O:
Vital Signs
Temp Pulse Resp BP Pulse Ox
36.4 C 59 14 122/51 99
11/18/23 07:00 11/18/23 08:03 11/18/23 08:03 11/18/23 08:03 11/18/23 08:00
Vital Signs
Temp Pulse Resp BP Pulse Ox
36.4 C 59 14 122/51 99
11/18/23 07:00 11/18/23 08:03 11/18/23 08:03 11/18/23 08:03 11/18/23 08:00
Intake & Output
11/16/23 11/17/23 11/18/23 11/19/23
07:59 07:59 07:59 07:59
Intake Total 840 / 840 565 / 565
Output Total 975 / 975 1425 / 1425 970 / 970
Balance -975 / -975 -585 / -585 -405 / -405
Physical Exam
Physical Exam
See above
[2023-11-18] MEDS: NOVOLOG FLEXPEN-LOW RESISTANCE 1 UNITS SC (11:30)
[2023-11-18 11:41] LABS: Glucose - Point of Care 181 mg/dl (70-99)
--- NOTE | 2023-11-18 12:15 | W.PN.HOSP.TC ---
Today's Communication/Plan
-
Monitor vital signs see plan
Monitor hemoglobin
HD per nephrology
Will need SNF
Wean oxygen as tolerated
Assessment / Plan
Assessment / Plan
Gen-AAOx3, NAD
HEENT-NC, AT, anicteric, clear oral mm
Neck-supple
CV-reg, no M, +S1/S2
Lungs-bilateral rales, rhonchi
Abd-soft, NT, ND
Ext-no edema
Musculoskeletal-no cyanosis, clubbing
Skin-warm and dry
Neuro-grossly non-focal
Psych-calm, cooperative
Acute hypoxic respiratory failure - likely multifactorial etiology including acute on chronic heart failure, interstitial lung disease. Has underlying COPD, ABELARDO. Oxygenation improving, now on NC oxygen at 4 L. Wean down as able. Not on home
oxygen. Was on BiPAP at times
Clinically doubt pneumonia. Off antibiotics.
Getting systemic steroids for possible interstitial lung process as per pulmonary, now on Decadron 4 mg p.o. daily. Consider discontinuing amiodarone if able, cardiology is lowering dose.
Acute on chronic heart failure with reduced EF exacerbation -very difficult to assess true volume status. Cardiology consulted. Discharged last week off diuretics. on IV Lasix. also being managed with HD
Acute on chronic anemia -baseline hemoglobin averages 8-9, admission hemoglobin 6.4. Hemoglobin down to 7.5 this morning, four units PRBC transfused so far. Must use irradiated, leuko reduced. Does not need to be CMV negative, discussed with .
Reuben.
Gets Aranesp q3 weeks by Dr Alexis, due for next dose this . We are unable to give Aranesp here in the hospital as it is nonformulary. Discussed with patient and .
Acute thrombocytopenia -platelet count 101k. Unclear etiology. Monitor for now.
CLL/MGUS/myelofibrosis -was on Momelotinib.
CKD 4 - Temporary dialysis catheter placed, hemodialysis per nephrology. Patient tolerating. Plan for dialysis on Saturday. Bleeding from dialysis catheter improving.
Paroxysmal atrial fibrillation -on warfarin, amiodarone. INR 2.24 today. Resume warfarin at a lower dose of 1 mg at bedtime.
CAD -stable.
COPD without exacerbation
DM2 with hypoglycemia -he is on Lantus 15 units at bedtime, Humalog 12 units AC at home, Farxiga 5 mg daily. Insulin doses adjusted by diabetes HOUSE MOTHER. Glucose 52 this morning. Will lower dose of Lantus to 12 units at bedtime.
Essential hypertension - stable.
Hyperlipidemia -on rosuvastatin.
History of CDAD -completed vancomycin taper.
BPH
Full-thickness coccyx/perineal ulcer, likely healing PI stage 3
Full code
Dispo -SNF when medically stable.
I spent a total of 52 minutes with the patient or on the floor. More than 50% of this time involved counseling and coordination of care.
Anticipated Discharge: > 48 hours
Subjective/Interval History
-
Date of Service: November 18, 2023
denies pain
Objective Data
-
Labs:
Laboratory Results
11/18/23
03:09
WBC 10.8
Hgb 7.5 L
Hct 22.8 L
Plt Count 101 L
PT 24.7 H
INR 2.24
Sodium 133 L
Potassium 4.0
Chloride 97 L
Carbon Dioxide 29
BUN 83 H
Creatinine 2.6 H
Glucose 78
Calcium 7.7 L
Vital Signs:
Vital Signs
Temp Pulse Resp BP Pulse Ox
97.5 F 68 18 120/49 95
11/18/23 07:00 11/18/23 10:00 11/18/23 10:00 11/18/23 10:00 11/18/23 10:00
I&O
11/17/23 11/18/23 11/19/23
06:59 06:59 06:59
Intake Total 840 / 840 565 / 565
Output Total 1425 / 1425 970 / 970 410 / 410
Balance -585 / -585 -405 / -405 -410 / -410
[2023-11-18] MEDS: RETACRIT 10000 UNITS IV (13:17)
[2023-11-18] MEDS: MANNITOL 25% 12.5 GRAMS IV (13:17)
--- NOTE | 2023-11-18 14:38 | W.PN.NEPH.HD ---
Assessment
-
feeling well on HD
no complaints
Progress Note - Hemodialysis
-
Date of Service: November 18, 2023
Duration: 30 minutes and 3 hours
Potassium Bath: 3
Calcium Bath: 2.5
Opti-Dialyzer: 160
Ultrafiltration: Other
Blood Flow: 400
Dialysate Flow: 600
[2023-11-18] MEDS: HEPARIN 4300 UNITS INTRACATH (15:11)
--- NOTE | 2023-11-18 16:10 | W.PN.PUL3 ---
Today's Communication / Plan
-
Continue oral dexamethasone
Dialysis per renal
Wean down oxygen as tolerated
Increase activity as able
PT/OT --> rec'd skilled rehab upon discharge
Nebulizer therapy
Assessment
-
83-year-old man with extensive past medical history. Recently discharged from the hospital, at that time he was admitted with similar complaints of worsening shortness of breath and hypoxemia. He was treated with IV diuretics also he was given
high-dose of the steroids. At that time chest x-ray clear prior to discharge. Plan was to discharge steroids for anti-inflammatory properties, patient is reluctant to use systemic prednisone.
He did complete a course of Zosyn as well. He was discharged on 1 L of supplemental oxygen. Comes back with worsening shortness of breath and hypoxemia up to requiring high flow oxygen. Chest x-ray abnormal after complete clearance prior to
discharge.
-
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
gout, BPH
Impression:
#Acute respiratory failure with hypoxia requiring high flow oxygen --> now on midflow NC
#Bilateral infiltrates-likely acute pulmonary edema, proBNP >76352
#Acute on chronic anemia-no evidence for bleeding.
#Acute HFmrEF exacerbation (LVEF: 44% via TTE from 10-25-2023)
#Mild-moderate MR
#GER on CKD now on intermittent HD via temporary HD catheter (placed by IR on 11/15/2023)
#Sacral decubitus ulcer present on admission.
#Hx of asthma/copd not in an acute exacerbation
#Hx of ABELARDO on auto-BiPAP
#History of bronchiectasis on vest therapy at home
Plan:
Respiratory decompensation fairly rapid after discharge-acute on chronic HF exacerbation, proBNP >78901
Supplemental oxygen as needed-was discharged on 1 L-on 11/06/2023
BiPAP/noninvasive ventilation if needed-was on BiPAP 12/5 cm with a history of obstructive sleep apnea-tolerating
Initially on high flow now, now transitioned to 3L midflow, continue to wean as tolerated
Patient has been transitioned to Decadron 4 mg daily since 11/16/2023. Very slow taper in the outpatient setting - seems to be responding to steroids.
Has allergy to prednisone noted in record
Mucolytics
Aspiration precautions
Nebulizers-budesonide and DuoNebs
CT chest 11/12/2023 summarized below
Currently no strong evidence for infection.
Procalcitonin is slightly elevated-not valid inpatient with elevated creatinine and BUN at this point
Observe off antibiotics
Continue with the diuresis as tolerated
Hemodialysis started on 11/15/2023
Nephrology following - recs appreciated
Amiodarone 200 mg daily-this dose usually does not cause pulmonary toxicity, however, will monitor closely --> he is now on 200mg BID now since 11/14
Continue to hold momelotinib -review adverse effect profile. No mention for interstitial lung pneumonia but increased risk of respiratory failure and pneumonia.
states the patient has not received since prior admission.
Momelotinib -continues to be on hold rule out drug-induced pneumonitis-on the steroids as above.
Hemoglobin management per primary team. Transfuse as necessary to keep >7 g/dL
Last blood transfusion on 11/16/2023
INR elevated now Coumadin on hold
Monitor thrombocytopenia
Sacral decubitus ulcers-local care
DVT prophylaxis-SCDs. On Coumadin with goal INR 2-3
Outpatient follow-up with Dr. Camara after discharge.
updated by Dr. Rivera 11/12/2023.
Continue with current care.
Total time spent today was 50 minutes for this encounter. Time includes reviewing laboratory test/imaging results, reviewing pertinent medical records, obtaining and reviewing medical history, performing an appropriate exam, ordering medications,
tests and procedures. Time also includes documentation of this encounter, coordinating patient care and communicating with other healthcare professionals. Total time does not include separately billed tests performed on this date of service.

Diagnostic Data:
CXR 11-18-2023: Improved as compared with prior (CXR on 11/10/2023) with decreased diffuse reticular opacities and decreased right mid and upper lung consolidation.
CXR 10-24-2023: The heart size is within the limits of normal. There are bilateral airspace and interstitial infiltrates, right greater than left, consistent with diffuse pneumonia.Regional skeleton intact.
CT of the chest 11/12/2023: Reviewed showed extensive bilateral ground glass opacities. Bilateral small pleural effusions. Differential diagnosis continues to be pulmonary edema versus inflammatory pneumonitis.
Discussed with nephrology given stability and weight felt that probably volume overload not playing significant role. Difficult to assess clinically.
Echo 10/25/2023: EF 44%, global hypokinesis more prominent in mid and basal segments of anterior lateral wall. Mild to moderate MR. Mild AI. Mild TR.
Echo 09/02/23: EF 45-50% with mild global hypokinesis and more notable mid to apical anterolateral. EF 50-55% visual by echo Jun 2023.
Echocardiogram�from January 22, 2023 showed top normal LV size with low normal or mildly globally reduced systolic function, LVEF of 50 to 55%, thickened mitral valve leaflets with MAC and mild MR, aortic sclerosis with mild AI, normal right heart
with normal PA systolic pressure, dilated aorta with maximum diameter of 4.4 cm.
Pharmacologic nuclear stress test�on January 2023 showed abnormal perfusion imaging with small, mild apical inferior and apical lateral defect suggestive of mild ischemia.� No evidence of scar.� Systolic function was mildly reduced at 42% on stress
test.� Compared to prior study from 2020, apical lateral and apical inferior defects were present then but also inferior, mid inferior and inferolateral segments.� LVEF prior was 40%
Left heart catheterization�from July 28, 2015: Mild tapering of distal left main.� Complex high-grade stenosis from proximal to mid LAD involving the origin of a very large diagonal branch.� The mid LAD beyond the diagonal has a 60% stenosis and
60% distal stenosis.� Nonobstructive disease in the other arteries.� LV gram suggested an LVEF of 25 to 30%.� On August 01, 2015 he underwent a 3.0 x 28 mm Alpine Xience 5 drug-eluting stent to the ostial LAD
Left heart catheterization from May 10, 2023: LVEDP 14. Left main large vessel which gives rise to LAD and circumflex. 20% distal left main stenosis. Diffuse atherosclerotic in-stent restenosis up to 50% spanning ostial to mid LAD involving
origin of a very large diagonal branch. Mid LAD beyond diagonal branch has 50 to 60% stenosis and a focal 56% distal stenosis. iFR is grossly positive at 0.7 in the mid to distal LAD. 50 to 60% ostial diagonal stenosis. Circumflex is large with
bifurcating OM1 with 30 to 40% stenosis and diffuse atherosclerotic plaque. RCA is large dominant vessel moderately calcified with a high anterior origin from the aorta. Diffuse atherosclerotic plaque. Following this procedure patient was seen by
CT surgery and was deemed too high risk. Decision was made for medical therapy; could consider high risk PCI if fails medical therapy
Subjective Data
-
Date of Service:
Date of Service: November 18, 2023
Chief Complaint: Pulmonary Follow Up (Hypoxemic respiratory failure-abnormal CT chest) and Dyspnea Follow Up
Subjective:
Patient seen and evaluated at bedside. Currently on nasal cannula @ 3L/min saturating 96%. He says he feels better compared to the last few days. Current vitals show: Heart rate: 63, BP: 121/52. He denies chest pain, headache, fevers or chills.
Review of Systems
General: Other (Negative unless mentioned above)
Objective Data
Data Reviewed
Vital Signs / I&O / Oxygen:
Vital Signs
Temp Pulse Resp BP Pulse Ox
97.7 F 62 19 114/51 96
11/18/23 15:03 11/18/23 13:45 11/18/23 13:45 11/18/23 13:45 11/18/23 13:52
Intake and Output
11/17/23 11/18/23 11/19/23
06:59 06:59 06:59
Intake Total 840 / 840 565 / 565
Output Total 1425 / 1425 970 / 970 410 / 410
Balance -585 / -585 -405 / -405 -410 / -410
SaO2 96
Nasal Cannula flow liters per 4
minute
Physical Exam
General: Respiratory Distress (n) and Comfortable
HEENT: Normocephalic, Anicteric and Moist Mucous Membranes
Cardiovascular: S1-S2 and Peripheral Edema (Negative)
Respiratory: Wheeze (Negative), Crackles (Bibasilar), Rhonchi (Negative), Non-Labored Respirations, Accessory Resp Muscle Use (Negative) and Stridor (n)
GI: Soft, Non Distended, Non Tender and Normal Bowel Sounds
Neurology: AO x 3 and Tremors (Negative)
Skin: Warm, Dry, Cyanosis (n), Jaundice (n), Rash (n) and Other (Right anterior chest wall HD catheter in place)
Labs/Micro/Reports
Lab Data
11/18/23 03:09
11/18/23 03:09
Laboratory Results
11/18/23
03:09
PT 24.7 H
INR 2.24
Microbiology
11/11/23 00:17 Blood/Venous Blood Culture - Final
No Growth - Final Report
11/10/23 23:47 Blood/Venous Blood Culture - Final
No Growth - Final Report
[2023-11-18 16:47] LABS: Glucose - Point of Care 100 mg/dl (70-99)
--- NOTE | 2023-11-18 16:59 | PTCARENOTE ---
Patient tolerated HD today. Vital signs remained stable. Sp02 on 4L o2 >94% patient denies any pain or discomfort. Denies shortness of breath. Using urinal independently.
[2023-11-18] MEDS: FEOSOL 325 MG PO (18:12)
[2023-11-18] MEDS: CRESTOR 5 MG PO (18:12)
[2023-11-18] MEDS: COUMADIN 1 MG PO (18:13)
[2023-11-18] MEDS: PROSCAR 5 MG PO (18:13)
[2023-11-18] MEDS: LANTUS 0.119999999999999996 UNITS SC (20:43)
[2023-11-18 20:53] LABS: Glucose - Point of Care 104 mg/dl (70-99)
[2023-11-19] VITALS (24 sets, daily range): BP systolic 104–126; BP diastolic 45–65; PULSE 2–65; O2SAT 97; BMI 19.7
[2023-11-19 03:48] LABS: % Basophils 0.2 % (0-2); % Eosinophils 0.2 % (0-6); % Immature Granulocytes 2.2 % (0-0.5); % Lymphocytes 4.8 % (20.5-51.1); % Monocytes 2.4 % (1.7-9.3); % Neutrophils 90.2 % (42.2-75.2); Absolute Immature Granulocytes 0.3 10^3/uL (0-0.05); Absolute Lymphocytes 0.6 10^3/uL (1.2-3.4); Absolute Monocytes 0.3 10^3/uL (0.1-0.6); Absolute Neutrophils 10.5 10^3/uL (1.4-6.5); Hematocrit 25.5 % (39.0-52.0); Mean Corp Hgb Conc. 31.4 g/dL (33.0-37.0); Mean Corpuscular Hgb 28.6 pg (27.0-31.0); Mean Corpuscular Volume 91.1 fL (80.0-94.0); Nucleated Red Blood Cells % 0.2 % (-); Platelet Count 113 10^3/uL (130-400); Red Cell Dist. Width 19.5 % (11.5-14.5); White Blood Cell Count 11.6 10^3/uL (4.8-10.8)
[2023-11-19 03:58] LABS: INR 1.91; PT 21.7 Sec (11.4-14.6)
[2023-11-19 04:16] LABS: ALT (SGPT) 26 U/L (0-50); AST (SGOT) 32 U/L (17-59); Albumin 2.8 g/dl (3.5-5.0); Alkaline Phosphatase 67 U/L (38-126); Blood Urea Nitrogen 52 mg/dl (9-20); Calcium 7.8 mg/dl (8.4-10.2); Carbon Dioxide 27 mmol/L (22-30); Chloride 100 mmol/L (98-107); Estimated Creatinine Clearance 24 ml/min; Glucose 71 mg/dl (70-99); Potassium 3.9 mmol/L (3.5-5.1); Sodium 135 mmol/L (135-145); Total Bilirubin 1.9 mg/dl (0.2-1.3); Total Protein 4.7 g/dl (6.3-8.2); eGFR 30.85
--- NOTE | 2023-11-19 05:13 | PTCARENOTE ---
No acute events overnight. Remained on BIPAP.
[2023-11-19 06:54] LABS: Glucose - Point of Care 64 mg/dl (70-99)
[2023-11-19 07:13] LABS: Glucose - Point of Care 86 mg/dl (70-99)
[2023-11-19] MEDS: NOVOLOG FLEXPEN SC (07:29)
[2023-11-19] MEDS: NOVOLOG FLEXPEN-LOW RESISTANCE SC ×2 (07:29→16:48)
[2023-11-19] MEDS: PULMICORT 0.5 MG INH ×2 (07:45→19:39)
[2023-11-19] MEDS: DUONEB 3 ML INH ×2 (07:45→19:39)
[2023-11-19] MEDS: NITRO-DUR 0.599999999999999978 MG TRANSDERM (08:25)
--- NOTE | 2023-11-19 08:25 | PN.DE.MGMTRT ---
Insulin Management
- -
11/19/2023: Diabetes Management Follow up:
Pt readmitted 11/09 for acute respiratory hypoxia after a lengthy hospitalization 10/23 to 11/05 with Acute Hypoxic respiratory failure 2/2 to pneumonia +/- Interstitial Pneumonitis in setting of Momelotinib. PMH: CKD4, HFrEF, CLL/myelofibrosis, anemia
of chronic disease, PAFib, CAD, COPD, HTN, HLD, recent C-Diff, BPH
Current A1C 4.8%, Cr 4.0-->2.1 today, eGFR 30.85.
Pt states he has no known hx of Diabetes Mellitus but has taken insulin at home in the past and has working glucose monitor. States prior to this admission he has been monitoring his blood sugars before each meal and has noted range of 80-150 in
morning and higher glucose level in the evening. States he has been holding premeal insulin if blood sugar is <150 but consistently taking the Lantus every night.
Patient awake, alert, oriented, sitting up in bed, offers no complaints. Has tunneled cath in place for HD.
Dexamethasone continues at 4 mg daily.
Glucose improving with steroid taper, glucose range yesterday pre meal 104 to 181.
HS Lantus was reduced from 15 to 12 units yesterday due to hypoglycemia. Fasting glucose this AM 64, Patient received no insulin for meal, will further reduce HS lantus to 10 units. Will continue Farxiga 5 mg daily and NovoLog 10 units AC with low
corrective.
Discussed with nurse.
Diabetes History
- -
Type of Diabetes: 2 requiring insulin
Pre-Admission Diabetes Regimen
11/19/23
03:35
Creatinine 2.1 H
Lab Results
Hemoglobin A1c 4.8 % (4.0-5.6) 11/11/23 04:00
Insulin Pump Settings
IP Diabetes Regimen
11/17/23 11/18/23 11/18/23
21:21 11:26 16:32
Glucose
POC Glucose 226 H 181 H 100 H
11/18/23 11/19/23 11/19/23
20:42 03:35 06:42
Glucose 71
POC Glucose 104 H 64 L
11/19/23
07:00
Glucose
POC Glucose 86
Meal type: Lunch
Amount consumed: 80%
Patient Education
[2023-11-19] MEDS: DECADRON 4 MG PO (08:26)
[2023-11-19] MEDS: LASIX 80 MG IV ×2 (08:26→17:26)
[2023-11-19] MEDS: TOPROL XL 12.5 MG PO ×2 (08:28→21:11)
[2023-11-19] MEDS: MUCINEX 600 MG PO ×2 (08:28→21:11)
[2023-11-19] MEDS: PACERONE 200 MG PO ×2 (08:28→21:11)
[2023-11-19] MEDS: FARXIGA 5 MG PO (08:29)
[2023-11-19] MEDS: ASPIR LOW (ENTERIC COATED) 81 MG PO (08:29)
--- NOTE | 2023-11-19 09:25 | W.PN.CARDCBS ---
Today's Communication / Plan
-
Stable cardiology status
Remains in sinus rhythm
Nephrology managing volume status
Will sign off, call with questions
Impression / Plan
-
PCP: Rob Santos
Outpatient Chief Sustainability Officer: BRIGITTE Snow
Impression:
Presented 11/10/2023 with shortness of breath
Acute hypoxic respiratory failure
Acute on chronic heart failure with reduced ejection fraction
GER, on CKD stage IIIb/marked proteinuria
Recent admission w/ d/c 11/06/23 for acute hypoxic respiratory failure due to pneumonia/interstitial pneumonitis
History of C. difficile (on vancomycin)
Recent multiple hospitalizations including proctitis and pneumonia in June 2023
Recent prolonged admission following outpatient cardiac catheterization 05/10 - 05/21/2023
Coronary artery disease status post prior ostial LAD PCI in 2015 with recent cardiac catheterization noting diffusely positive IFR of the LAD back to the left main
Prior ischemic cardiomyopathy with LVEF of 25 to 30%, most recently recovered to 50-55% on echo
History of NSVT last admission
CLL/MGUS/Chronic anemia�management per Dr. 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 Aranesp initiated 05/09/23 every 3 weeks.
Paroxysmal atrial fibrillation, on chronic anticoagulation with Coumadin [history of hemoptysis and hematuria on Xarelto in 2017. Declined Eliquis]
COPD, not on home oxygen
C diff diarrhea
Hypertension
Hyperlipidemia
Type 2 diabetes mellitus
Mild cognitive decline / Frailty
Obstructive sleep apnea
Gout hx
IgG deficiency hx
Prior hematuria in 2015/history of BPH
Bleeding from port site
Echo 10/25/2023: EF 44%, global hypokinesis more prominent in mid and basal segments of anterior lateral wall. Mild to moderate MR. Mild AI. Mild TR.
Echo 09/02/23: EF 45-50% with mild global hypokinesis and more notable mid to apical anterolateral. EF 50-55% visual by echo Jun 2023.
Echocardiogram�from January 22, 2023 showed top normal LV size with low normal or mildly globally reduced systolic function, LVEF of 50 to 55%, thickened mitral valve leaflets with MAC and mild MR, aortic sclerosis with mild AI, normal right heart
with normal PA systolic pressure, dilated aorta with maximum diameter of 4.4 cm.
Pharmacologic nuclear stress test�on January 2023 showed abnormal perfusion imaging with small, mild apical inferior and apical lateral defect suggestive of mild ischemia.� No evidence of scar.� Systolic function was mildly reduced at 42% on stress
test.� Compared to prior study from 2020, apical lateral and apical inferior defects were present then but also inferior, mid inferior and inferolateral segments.� LVEF prior was 40%
Left heart catheterization�from July 28, 2015: Mild tapering of distal left main.� Complex high-grade stenosis from proximal to mid LAD involving the origin of a very large diagonal branch.� The mid LAD beyond the diagonal has a 60% stenosis and
60% distal stenosis.� Nonobstructive disease in the other arteries.� LV gram suggested an LVEF of 25 to 30%.� On August 01, 2015 he underwent a 3.0 x 28 mm Alpine Xience 5 drug-eluting stent to the ostial LAD
Left heart catheterization from May 10, 2023: LVEDP 14. Left main large vessel which gives rise to LAD and circumflex. 20% distal left main stenosis. Diffuse atherosclerotic in-stent restenosis up to 50% spanning ostial to mid LAD involving
origin of a very large diagonal branch. Mid LAD beyond diagonal branch has 50 to 60% stenosis and a focal 56% distal stenosis. iFR is grossly positive at 0.7 in the mid to distal LAD. 50 to 60% ostial diagonal stenosis. Circumflex is large with
bifurcating OM1 with 30 to 40% stenosis and diffuse atherosclerotic plaque. RCA is large dominant vessel moderately calcified with a high anterior origin from the aorta. Diffuse atherosclerotic plaque. Following this procedure patient was seen by
CT surgery and was deemed too high risk. Decision was made for medical therapy; could consider high risk PCI if fails medical therapy
Plan:
He continues to do well with hemodialysis
Nephrology is managing volume status
He has severe CAD but is not a candidate for open heart surgery
Continue medical therapy for CAD
Remains in sinus rhythm. INR near therapeutic at 1.9 on Coumadin
Will sign off, call with questions
Progress Note - Chief Sustainability Officer
Subjective
Date of Service: November 19, 2023
He has no complaints.
Objective
Labs:
11/19/23 03:35
11/19/23 03:35
Labs
Hgb 8.0 g/dL (13.0-18.0) L 11/19/23 03:35
Hct 25.5 % (39.0-52.0) L 11/19/23 03:35
Plt Count 113 10^3/uL (130-400) L 11/19/23 03:35
PT 21.7 Sec (11.4-14.6) H 11/19/23 03:35
INR 1.91 11/19/23 03:35
Sodium 135 mmol/L (135-145) 11/19/23 03:35
Potassium 3.9 mmol/L (3.5-5.1) 11/19/23 03:35
BUN 52 mg/dl (9-20) H 11/19/23 03:35
Creatinine 2.1 mg/dL (0.7-1.3) H 11/19/23 03:35
Glucose 71 mg/dl (70-99) 11/19/23 03:35
Vital Signs and I&O:
Vital Signs
Temp Pulse Resp BP Pulse Ox
97.6 F 64 21 109/54 94
11/19/23 08:20 11/19/23 08:28 11/19/23 08:00 11/19/23 08:28 11/19/23 08:00
Vital Signs
Temp Pulse Resp BP Pulse Ox
97.6 F 64 21 109/54 94
11/19/23 08:20 11/19/23 08:28 11/19/23 08:00 11/19/23 08:28 11/19/23 08:00
Intake & Output
11/17/23 11/18/23 11/19/23 11/20/23
06:59 06:59 06:59 06:59
Intake Total 840 / 840 565 / 565 960 / 960
Output Total 1425 / 1425 970 / 970 1200 / 1200
Balance -585 / -585 -405 / -405 -240 / -240
Physical Exam
Physical Exam
General: Well developed, well nourished in NAD.
Neck: Supple, no JVD, HJR, carotids +2 B/L, no bruits bilaterally.
Heart: Non displaced PMI, RRR, no murmurs, No S3, S4, no rubs.
Lungs: Scattered rhonchi
Extremities: No clubbing, cyanosis or edema bilaterally.
Neuro: Grossly nonfocal, awake, alert and oriented x3.
--- NOTE | 2023-11-19 11:00 | W.PN.PUL3 ---
Today's Communication / Plan
-
Continue oral dexamethasone
Dialysis per renal --> next session tomorrow
Wean down oxygen as tolerated with O2 eval prior to discharge
Increase activity as able
PT/OT --> rec'd skilled rehab upon discharge
Nebulizer therapy
Assessment
-
83-year-old man with extensive past medical history. Recently discharged from the hospital, at that time he was admitted with similar complaints of worsening shortness of breath and hypoxemia. He was treated with IV diuretics also he was given
high-dose of the steroids. At that time chest x-ray clear prior to discharge. Plan was to discharge steroids for anti-inflammatory properties, patient is reluctant to use systemic prednisone.
He did complete a course of Zosyn as well. He was discharged on 1 L of supplemental oxygen. Comes back with worsening shortness of breath and hypoxemia up to requiring high flow oxygen. Chest x-ray abnormal after complete clearance prior to
discharge.
-
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
gout, BPH
Impression:
#Acute respiratory failure with hypoxia requiring high flow oxygen --> now on midflow NC
#Bilateral infiltrates-likely acute pulmonary edema, proBNP >31471
#Acute on chronic anemia-no evidence for bleeding.
#Acute HFmrEF exacerbation (LVEF: 44% via TTE from 10-25-2023)
#Mild-moderate MR
#GER on CKD now on intermittent HD via temporary HD catheter (placed by IR on 11/15/2023)
#Sacral decubitus ulcer present on admission.
#Hx of asthma/copd not in an acute exacerbation
#Hx of ABELARDO on auto-BiPAP
#History of bronchiectasis on vest therapy at home
Plan:
Respiratory decompensation fairly rapid after discharge-acute on chronic HF exacerbation, proBNP >92264
Supplemental oxygen as needed-was discharged on 1 L-on 11/06/2023
BiPAP/noninvasive ventilation if needed-was on BiPAP 12/5 cm with a history of obstructive sleep apnea-tolerating
Initially on high flow now, now transitioned to 3-4L midflow, continue to wean as tolerated
Patient has been transitioned to Decadron 4 mg daily since 11/16/2023. Very slow taper in the outpatient setting - seems to be responding to steroids.
Has allergy to prednisone noted in record
Mucolytics
Aspiration precautions
Nebulizers-budesonide and DuoNebs
CT chest 11/12/2023 summarized below
Currently no strong evidence for infection.
Procalcitonin is slightly elevated-not valid inpatient with elevated creatinine and BUN at this point
Observe off antibiotics
Continue with the diuresis as tolerated
Hemodialysis started on 11/15/2023 --> next session tomorrow
Nephrology following - recs appreciated
Amiodarone 200 mg daily-this dose usually does not cause pulmonary toxicity, however, will monitor closely --> he is now on 200mg BID now since 11/14
Continue to hold momelotinib -review adverse effect profile. No mention for interstitial lung pneumonia but increased risk of respiratory failure and pneumonia.
states the patient has not received since prior admission.
Momelotinib - continues to be on hold - rule out drug-induced pneumonitis-on the steroids as above.
Hemoglobin management per primary team. Transfuse as necessary to keep >7 g/dL
Last blood transfusion on 11/16/2023
INR elevated now Coumadin on hold
Monitor thrombocytopenia
Sacral decubitus ulcers-local care
PT/OT --> rec'd skilled rehab upon discharge
DVT prophylaxis-SCDs. On Coumadin with goal INR 2-3
Outpatient follow-up with Dr. Camara after discharge.
updated by Dr. Rivera 11/12/2023.
Continue with current care.
Total time spent today was 35 minutes for this encounter. Time includes reviewing laboratory test/imaging results, reviewing pertinent medical records, obtaining and reviewing medical history, performing an appropriate exam, ordering medications,
tests and procedures. Time also includes documentation of this encounter, coordinating patient care and communicating with other healthcare professionals. Total time does not include separately billed tests performed on this date of service.

Diagnostic Data:
CXR 11-18-2023: Improved as compared with prior (CXR on 11/10/2023) with decreased diffuse reticular opacities and decreased right mid and upper lung consolidation.
CXR 10-24-2023: The heart size is within the limits of normal. There are bilateral airspace and interstitial infiltrates, right greater than left, consistent with diffuse pneumonia.Regional skeleton intact.
CT of the chest 11/12/2023: Reviewed showed extensive bilateral ground glass opacities. Bilateral small pleural effusions. Differential diagnosis continues to be pulmonary edema versus inflammatory pneumonitis.
Discussed with nephrology given stability and weight felt that probably volume overload not playing significant role. Difficult to assess clinically.
Echo 10/25/2023: EF 44%, global hypokinesis more prominent in mid and basal segments of anterior lateral wall. Mild to moderate MR. Mild AI. Mild TR.
Echo 09/02/23: EF 45-50% with mild global hypokinesis and more notable mid to apical anterolateral. EF 50-55% visual by echo Jun 2023.
Echocardiogram�from January 22, 2023 showed top normal LV size with low normal or mildly globally reduced systolic function, LVEF of 50 to 55%, thickened mitral valve leaflets with MAC and mild MR, aortic sclerosis with mild AI, normal right heart
with normal PA systolic pressure, dilated aorta with maximum diameter of 4.4 cm.
Pharmacologic nuclear stress test�on January 2023 showed abnormal perfusion imaging with small, mild apical inferior and apical lateral defect suggestive of mild ischemia.� No evidence of scar.� Systolic function was mildly reduced at 42% on stress
test.� Compared to prior study from 2020, apical lateral and apical inferior defects were present then but also inferior, mid inferior and inferolateral segments.� LVEF prior was 40%
Left heart catheterization�from July 28, 2015: Mild tapering of distal left main.� Complex high-grade stenosis from proximal to mid LAD involving the origin of a very large diagonal branch.� The mid LAD beyond the diagonal has a 60% stenosis and
60% distal stenosis.� Nonobstructive disease in the other arteries.� LV gram suggested an LVEF of 25 to 30%.� On August 01, 2015 he underwent a 3.0 x 28 mm Alpine Xience 5 drug-eluting stent to the ostial LAD
Left heart catheterization from May 10, 2023: LVEDP 14. Left main large vessel which gives rise to LAD and circumflex. 20% distal left main stenosis. Diffuse atherosclerotic in-stent restenosis up to 50% spanning ostial to mid LAD involving
origin of a very large diagonal branch. Mid LAD beyond diagonal branch has 50 to 60% stenosis and a focal 56% distal stenosis. iFR is grossly positive at 0.7 in the mid to distal LAD. 50 to 60% ostial diagonal stenosis. Circumflex is large with
bifurcating OM1 with 30 to 40% stenosis and diffuse atherosclerotic plaque. RCA is large dominant vessel moderately calcified with a high anterior origin from the aorta. Diffuse atherosclerotic plaque. Following this procedure patient was seen by
CT surgery and was deemed too high risk. Decision was made for medical therapy; could consider high risk PCI if fails medical therapy
Subjective Data
-
Date of Service:
Date of Service: November 19, 2023
Chief Complaint: Pulmonary Follow Up (Hypoxemic respiratory failure-abnormal CT chest) and Dyspnea Follow Up
Subjective:
Patient seen and evaluated today. Afebrile overnight. Remains on mid flow nasal cannula at 4 L/min. Patient denies chest pain, headache, fevers or chills.
Review of Systems
General: Other (Negative unless mentioned above)
Objective Data
Data Reviewed
Vital Signs / I&O / Oxygen:
Vital Signs
Temp Pulse Resp BP Pulse Ox
97.6 F 65 26 112/47 94
11/19/23 08:20 11/19/23 10:00 11/19/23 10:00 11/19/23 10:00 11/19/23 08:00
Intake and Output
11/18/23 11/19/23 11/20/23
06:59 06:59 06:59
Intake Total 565 / 565 960 / 960
Output Total 970 / 970 1200 / 1200
Balance -405 / -405 -240 / -240
SaO2 94
Nasal Cannula flow liters per 3
minute
Physical Exam
General: Respiratory Distress (n) and Comfortable
HEENT: Normocephalic, Anicteric and Moist Mucous Membranes
Cardiovascular: S1-S2 and Peripheral Edema (Negative)
Respiratory: Wheeze (Negative), Crackles (Bibasilar), Rhonchi (Negative), Non-Labored Respirations, Accessory Resp Muscle Use (Negative) and Stridor (n)
GI: Soft, Non Distended, Non Tender and Normal Bowel Sounds
Neurology: AO x 3 and Tremors (Negative)
Skin: Warm, Dry, Cyanosis (n), Jaundice (n), Rash (n) and Other (Right anterior chest wall HD catheter in place)
Labs/Micro/Reports
Lab Data
11/19/23 03:35
11/19/23 03:35
Laboratory Results
11/19/23
03:35
PT 21.7 H
INR 1.91
[2023-11-19 11:33] LABS: Glucose - Point of Care 269 mg/dl (70-99)
[2023-11-19] MEDS: NOVOLOG FLEXPEN 10 UNITS SC ×2 (11:40→17:29)
[2023-11-19] MEDS: NOVOLOG FLEXPEN-LOW RESISTANCE 3 UNITS SC (11:41)
--- NOTE | 2023-11-19 12:42 | W.PN.HOSP.TC ---
Today's Communication/Plan
-
monitor vitals
see plan
HD per nephrology
wean o2 as tolerated
will need SNF
cw decadron
cw amio
Assessment / Plan
Assessment / Plan
Gen-AAOx3, NAD
HEENT-NC, AT, anicteric, clear oral mm
Neck-supple
CV-reg, no M, +S1/S2
Lungs-bilateral rales, rhonchi
Abd-soft, NT, ND
Ext-no edema
Musculoskeletal-no cyanosis, clubbing
Skin-warm and dry
Neuro-grossly non-focal
Psych-calm, cooperative
Acute hypoxic respiratory failure - likely multifactorial etiology including acute on chronic heart failure, interstitial lung disease. Has underlying COPD, ABELARDO. Oxygenation improving, now on NC oxygen at 3-4 L. Wean down as able. Not on home
oxygen. Was on BiPAP at times
Clinically doubt pneumonia. Off antibiotics.
Getting systemic steroids for possible interstitial lung process as per pulmonary, now on Decadron 4 mg p.o. daily. cardiology still has pt on 200mg BID amio; Spoke with Dr Artis and he wants 200mg BID x 1 month and then dec to 200mg daily
Acute on chronic heart failure with reduced EF exacerbation -very difficult to assess true volume status. Cardiology consulted. Discharged last week off diuretics. on IV Lasix. also being managed with HD
Acute on chronic anemia -baseline hemoglobin averages 8-9, admission hemoglobin 6.4. four units PRBC transfused so far. Must use irradiated, leuko reduced. Does not need to be CMV negative, discussed with Dr. Alexis.
Gets Aranesp q3 weeks by Dr Alexis, due for next dose this . We are unable to give Aranesp here in the hospital as it is nonformulary. Discussed with patient and .
Acute thrombocytopenia -platelet count 113k. Unclear etiology. Monitor for now.
CLL/MGUS/myelofibrosis -was on Momelotinib.
CKD 4 - tunnelled catheter, hemodialysis per nephrology. Patient tolerating. Bleeding from dialysis catheter improving. nephrology to decide on status of HD
Paroxysmal atrial fibrillation -on warfarin, amiodarone. INR 1.94 today. Change warfarin back to 2 mg
CAD -stable.
COPD without exacerbation
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
Essential hypertension - stable.
Hyperlipidemia -on rosuvastatin.
History of CDAD -completed vancomycin taper.
BPH
Full-thickness coccyx/perineal ulcer, likely healing PI stage 3
Full code
Dispo -SNF when medically stable.
I spent a total of 51 minutes with the patient or on the floor. More than 50% of this time involved counseling and coordination of care.
Anticipated Discharge: 24 - 48 hours
Subjective/Interval History
-
Date of Service: November 19, 2023
denies pain
Objective Data
-
Labs:
Laboratory Results
11/19/23
03:35
WBC 11.6 H
Hgb 8.0 L
Hct 25.5 L
Plt Count 113 L
PT 21.7 H
INR 1.91
Sodium 135
Potassium 3.9
Chloride 100
Carbon Dioxide 27
BUN 52 H
Creatinine 2.1 H
Glucose 71
Calcium 7.8 L
Total Bilirubin 1.9 H
AST 32
ALT 26
Alkaline Phosphatase 67
Vital Signs:
Vital Signs
Temp Pulse Resp BP Pulse Ox
97.7 F 65 20 122/53 93
11/19/23 12:00 11/19/23 12:00 11/19/23 12:00 11/19/23 12:00 11/19/23 12:00
I&O
11/18/23 11/19/23 11/20/23
06:59 06:59 06:59
Intake Total 565 / 565 960 / 960
Output Total 970 / 970 1200 / 1200
Balance -405 / -405 -240 / -240
--- NOTE | 2023-11-19 12:45 | PTCARENOTE ---
Rec'd pt this AM. blood sugar low in AM but pt asymptomatic and recovered. Resting comfortably. vital signs stable.
--- NOTE | 2023-11-19 14:00 | CM ---
Patient with Dx Acute on chronic hypoxic respiratory failure, HF, anemia. O2 4L midflow. Receiving IV Lasix. PT & OT recommend skilled rehab.
Spoke with [facility]; HD flow sheets faxed. He was made aware that the patient is medically ready for d/c whenever he can be cleared for outpatient HD. HD schedule will be MWF 11:45am.
Spoke with [facility]; the patient is accepted by the SNF and acceptance by [facility] is pending. Faxed clinical to the [facility] that will be forwarded to [facility].
Spoke with patient and provided update that he was accepted by [facility], and that their internal dialysis [facility] is working to get him accepted for HD at [facility]. Informed him that clearance for [facility] is
still pending, however schedule is known -provided schedule MWF 11:45am. He has already moved some of his other outpatient appointments to accomodate his HD schedule. The patient is aware that he may be discharged in the next few days. He was
talking to his on the phone and will relay the update.
Plan follow up with [facility] for HD clearance.
Plan follow up with [facility] for clearance by [facility].
--- NOTE | 2023-11-19 14:12 | W.PN.NEPH.PH ---
Today's Communication / Plan
-
- HD tomorrow
Assessment/Plan
-
Chronic kidney disease stage IV
Acute on chronic hypoxic respiratory
COPD/interstitial lung disease/recent pneumonia
History of congestive heart failure
Anemia
CLL/MGUS/myelofibrosis
Type 2 diabetes
Hypertension
BPH
History of C. difficile (on vancomycin)
Metabolic acidosis
Plan:
-HD tomorrow
-Catheter site with less bleeding
-Hemodynamically stable
-Anemia better s/p transfusion
-steroids for possible pneumonitis per pulm
-on amiodarone
-HD tomorrow orders provided
-
-
Date of Service: November 19, 2023
CC / HPI / ROS
-
Chief Complaint:
CKD stage V, now on HD
History of Present Illness:
Hemodynamically stable on amlodipine
HD times two perforemed
Review of Systems:
Nonoliguric
Weights down
sob with minimal exertion slowly improving
Labs
-
Labs:
WBC 11.6 10^3/uL (4.8-10.8) H 11/19/23 03:35
RBC 2.80 10^6/uL (4.70-6.10) L 11/19/23 03:35
Hgb 8.0 g/dL (13.0-18.0) L 11/19/23 03:35
Hct 25.5 % (39.0-52.0) L 11/19/23 03:35
Plt Count 113 10^3/uL (130-400) L 11/19/23 03:35
Sodium 135 mmol/L (135-145) 11/19/23 03:35
Potassium 3.9 mmol/L (3.5-5.1) 11/19/23 03:35
Chloride 100 mmol/L (98-107) 11/19/23 03:35
Carbon Dioxide 27 mmol/L (22-30) 11/19/23 03:35
BUN 52 mg/dl (9-20) H 11/19/23 03:35
Creatinine 2.1 mg/dL (0.7-1.3) H 11/19/23 03:35
eGFR 30.85 11/19/23 03:35
Glucose 71 mg/dl (70-99) 11/19/23 03:35
Calcium 7.8 mg/dl (8.4-10.2) L 11/19/23 03:35
Phosphorus 4.9 mg/dl (2.5-4.5) H 11/11/23 06:36
Jzx-J-Lmxcucfjuvz Pept > 04967 pg/ml 11/10/23 23:47
Albumin 2.8 g/dl (3.5-5.0) L 11/19/23 03:35
Physical Exam
-
Vital Signs:
Vital Signs
Temp Pulse Resp BP Pulse Ox
97.7 F 65 20 122/53 93
11/19/23 12:00 11/19/23 12:00 11/19/23 12:00 11/19/23 12:00 11/19/23 12:00
Cardiovascular:: Regular rate and rhythm
Respiratory:: Bilateral: Coarse
Lung Excursion:: Normal
Abdomen:: Nontender and Soft
Bowel Sounds:: Normal
Extremity Edema:: +1: Bilateral:
Crespo Catheter: No
[2023-11-19 16:53] LABS: Glucose - Point of Care 130 mg/dl (70-99)
[2023-11-19] MEDS: CRESTOR 5 MG PO (17:26)
[2023-11-19] MEDS: COUMADIN 2 MG PO (17:26)
[2023-11-19] MEDS: PROSCAR 5 MG PO (17:27)
[2023-11-19] MEDS: FEOSOL 325 MG PO (17:27)
[2023-11-19] MEDS: LANTUS 0.100000000000000006 UNITS SC (21:11)
[2023-11-19 21:19] LABS: Glucose - Point of Care 209 mg/dl (70-99)
[2023-11-20] VITALS (17 sets, daily range): BP systolic 103–140; BP diastolic 51–76; PULSE 2–76; BMI 19.9
--- NOTE | 2023-11-20 03:43 | DOWNTIME ---
There was a [employer] Client Contact Clerk Downtime on 11/20/2023 from 0100 to 11/20/2023 at 0337. Downtime documentation of patient's care, including medication administrations, has been reconciled in the electronic record per guidelines. Refer to the
patient's paper chart under the miscellaneous tab to see printed paper medication records and downtime forms.
[2023-11-20 03:46] LABS: % Basophils 0.2 % (0-2); % Eosinophils 0.1 % (0-6); % Immature Granulocytes 2.8 % (0-0.5); % Lymphocytes 3.7 % (20.5-51.1); % Monocytes 3.1 % (1.7-9.3); % Neutrophils 90.1 % (42.2-75.2); Absolute Immature Granulocytes 0.3 10^3/uL (0-0.05); Absolute Lymphocytes 0.4 10^3/uL (1.2-3.4); Absolute Monocytes 0.4 10^3/uL (0.1-0.6); Absolute Neutrophils 10.1 10^3/uL (1.4-6.5); Hematocrit 24.7 % (39.0-52.0); Mean Corp Hgb Conc. 32.4 g/dL (33.0-37.0); Mean Corpuscular Hgb 28.5 pg (27.0-31.0); Mean Corpuscular Volume 87.9 fL (80.0-94.0); Mean Platelet Volume 11.5 fL (7.4-10.4); Nucleated Red Blood Cells % 0.2 % (-); Platelet Count 154 10^3/uL (130-400); Red Blood Cell Count 2.81 10^6/uL (4.70-6.10); White Blood Cell Count 11.2 10^3/uL (4.8-10.8)
[2023-11-20 03:58] LABS: INR 1.68; PT 19.6 Sec (11.4-14.6)
--- NOTE | 2023-11-20 04:01 | PTCARENOTE ---
No acute events overnight. Tolerated BIPAP from 22-0300. Placed back on 4 liters NC.
[2023-11-20 04:02] LABS: ALT (SGPT) 27 U/L (0-50); AST (SGOT) 26 U/L (17-59); Albumin 2.8 g/dl (3.5-5.0); Alkaline Phosphatase 80 U/L (38-126); Blood Urea Nitrogen 78 mg/dl (9-20); Calcium 7.7 mg/dl (8.4-10.2); Carbon Dioxide 29 mmol/L (22-30); Chloride 96 mmol/L (98-107); Estimated Creatinine Clearance 17 ml/min; Glucose 146 mg/dl (70-99); Potassium 3.9 mmol/L (3.5-5.1); Sodium 133 mmol/L (135-145); Total Bilirubin 1.6 mg/dl (0.2-1.3); Total Protein 4.6 g/dl (6.3-8.2); eGFR 20.94
[2023-11-20] MEDS: NOVOLOG FLEXPEN-LOW RESISTANCE SC ×2 (06:42→17:40)
[2023-11-20 06:48] LABS: Glucose - Point of Care 108 mg/dl (70-99)
[2023-11-20] MEDS: NITRO-DUR 0.599999999999999978 MG TRANSDERM (07:19)
[2023-11-20] MEDS: FARXIGA 5 MG PO (07:20)
[2023-11-20] MEDS: MUCINEX 600 MG PO ×2 (07:20→20:58)
[2023-11-20] MEDS: DECADRON 4 MG PO (07:20)
[2023-11-20] MEDS: TOPROL XL 12.5 MG PO ×2 (07:20→20:58)
[2023-11-20] MEDS: PACERONE 200 MG PO ×2 (07:21→20:58)
[2023-11-20] MEDS: ASPIR LOW (ENTERIC COATED) 81 MG PO (07:22)
[2023-11-20] MEDS: LASIX 80 MG IV (07:22)
[2023-11-20] MEDS: NOVOLOG FLEXPEN 10 UNITS SC ×3 (07:23→17:40)
[2023-11-20] MEDS: DUONEB 3 ML INH ×2 (07:46→19:55)
[2023-11-20] MEDS: PULMICORT 0.5 MG INH ×2 (07:46→19:55)
--- NOTE | 2023-11-20 08:01 | PN.DE.MGMTRT ---
Insulin Management
- -
11/20/2023: Diabetes Management Follow up:
Pt readmitted 11/09 for acute respiratory hypoxia after a lengthy hospitalization 10/23 to 11/05 with Acute Hypoxic respiratory failure 2/2 to pneumonia +/- Interstitial Pneumonitis in setting of Momelotinib. PMH: CKD4, HFrEF, CLL/myelofibrosis, anemia
of chronic disease, PAFib, CAD, COPD, HTN, HLD, recent C-Diff, BPH
Current A1C 4.8%, Cr 2.9, eGFR 20.94 today.
Pt states he has no known hx of Diabetes Mellitus but has taken insulin at home in the past and has working glucose monitor. States prior to this admission he has been monitoring his blood sugars before each meal and has noted range of 80-150 in
morning and higher glucose level in the evening. States he has been holding premeal insulin if blood sugar is <150 but consistently taking the Lantus every night.
Patient awake, alert, oriented, sitting up in bed, offers no complaints. Has tunneled cath in place for HD.
Dexamethasone continues at 4 mg daily. For HD today.
Glucose range yesterday pre meal 64 to 269. HS Lantus was reduced from 15 to 12 units yesterday due to hypoglycemia. Fasting glucose this AM 146 venous & 108 POC. Will continue Lantus 10 units @ HS with Farxiga 5 mg daily and NovoLog 10 units AC
with low corrective.
Discussed with nurse.
Diabetes History
- -
Type of Diabetes: 2 requiring insulin
Pre-Admission Diabetes Regimen
11/20/23
03:08
Creatinine 2.9 H
Lab Results
Hemoglobin A1c 4.8 % (4.0-5.6) 11/11/23 04:00
Insulin Pump Settings
IP Diabetes Regimen
11/19/23 11/19/23 11/19/23
11:22 16:42 21:08
Glucose
POC Glucose 269 H 130 H 209 H
11/20/23 11/20/23
03:08 06:37
Glucose 146 H
POC Glucose 108 H
Meal type: Dinner
Amount consumed: 100%
Patient Education
--- NOTE | 2023-11-20 10:40 | W.PN.PUL3 ---
Today's Communication / Plan
-
Continue oral dexamethasone
Dialysis per renal --> next session today
Wean down oxygen as tolerated with O2 eval prior to discharge --> now on 4L/min nasal cannula and off of midflow
Continue lasix with strict I/O
Increase activity as able
PT/OT --> rec'd skilled rehab upon discharge
Nebulizer therapy
Assessment
-
83-year-old man with extensive past medical history. Recently discharged from the hospital, at that time he was admitted with similar complaints of worsening shortness of breath and hypoxemia. He was treated with IV diuretics also he was given
high-dose of the steroids. At that time chest x-ray clear prior to discharge. Plan was to discharge steroids for anti-inflammatory properties, patient is reluctant to use systemic prednisone.
He did complete a course of Zosyn as well. He was discharged on 1 L of supplemental oxygen. Comes back with worsening shortness of breath and hypoxemia up to requiring high flow oxygen. Chest x-ray abnormal after complete clearance prior to
discharge.
-
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
gout, BPH
Impression:
#Acute respiratory failure with hypoxia requiring high flow oxygen --> now on nasal cannula @ 4L/min
#Bilateral infiltrates-likely acute pulmonary edema, proBNP >24983
#Acute on chronic anemia-no evidence for bleeding.
#Acute HFmrEF exacerbation (LVEF: 44% via TTE from 10-25-2023)
#Mild-moderate MR
#GER on CKD now on intermittent HD via temporary HD catheter (placed by IR on 11/15/2023)
#Sacral decubitus ulcer present on admission.
#Hx of asthma/copd not in an acute exacerbation
#Hx of ABELARDO on auto-BiPAP
#History of bronchiectasis on vest therapy at home
Plan:
Respiratory decompensation fairly rapid after recent discharge on 11/05-acute on chronic HF exacerbation, proBNP >08865
Supplemental oxygen as needed-was discharged on 1 L-on 11/06/2023
BiPAP/noninvasive ventilation if needed-was on BiPAP 12/5 cm with a history of obstructive sleep apnea-tolerating
Initially on high flow now, then transitioned to 3-4L midflow, nown on nasal cannula at 4L/min --> continue to wean as tolerated
Patient has been transitioned to Decadron 4 mg daily since 11/16/2023. Very slow taper in the outpatient setting - seems to be responding to steroids.
Has allergy to prednisone noted in record
Mucolytics
Aspiration precautions
Nebulizers-budesonide and DuoNebs
CT chest 11/12/2023 summarized below
Currently no strong evidence for infection.
Procalcitonin was slightly elevated at 0.3 on 11/11/2023-not valid inpatient with elevated creatinine and BUN at this point
Observe off antibiotics
Continue with the diuresis as tolerated --> currently on lasix 80mg IV BID --> he is making urine which is encouraging
Hemodialysis started on 11/15/2023 --> next session today
Nephrology following - recs appreciated
Amiodarone 200 mg daily-this dose usually does not cause pulmonary toxicity, however, will monitor closely --> he is now on 200mg BID now since 11/14
Continue to hold momelotinib -review adverse effect profile. No mention for interstitial lung pneumonia but increased risk of respiratory failure and pneumonia.
states the patient has not received since prior admission.
Momelotinib - continues to be on hold - rule out drug-induced pneumonitis-on the steroids as above.
Hemoglobin management per primary team. Transfuse as necessary to keep >7 g/dL
Last blood transfusion on 11/16/2023
Continue coumadin with goal INR 2-3
Monitor thrombocytopenia
Sacral decubitus ulcers-local care
PT/OT --> rec'd skilled rehab upon discharge
DVT prophylaxis-SCDs. On Coumadin with goal INR 2-3
Outpatient follow-up with Dr. Camara after discharge.
updated by Dr. Rivera 11/12/2023.
Continue with current care.
Total time spent today was 35 minutes for this encounter. Time includes reviewing laboratory test/imaging results, reviewing pertinent medical records, obtaining and reviewing medical history, performing an appropriate exam, ordering medications,
tests and procedures. Time also includes documentation of this encounter, coordinating patient care and communicating with other healthcare professionals. Total time does not include separately billed tests performed on this date of service.

Diagnostic Data:
CXR 11-18-2023: Improved as compared with prior (CXR on 11/10/2023) with decreased diffuse reticular opacities and decreased right mid and upper lung consolidation.
CXR 10-24-2023: The heart size is within the limits of normal. There are bilateral airspace and interstitial infiltrates, right greater than left, consistent with diffuse pneumonia.Regional skeleton intact.
CT of the chest 11/12/2023: Reviewed showed extensive bilateral ground glass opacities. Bilateral small pleural effusions. Differential diagnosis continues to be pulmonary edema versus inflammatory pneumonitis.
Discussed with nephrology given stability and weight felt that probably volume overload not playing significant role. Difficult to assess clinically.
Echo 10/25/2023: EF 44%, global hypokinesis more prominent in mid and basal segments of anterior lateral wall. Mild to moderate MR. Mild AI. Mild TR.
Echo 09/02/23: EF 45-50% with mild global hypokinesis and more notable mid to apical anterolateral. EF 50-55% visual by echo Jun 2023.
Echocardiogram�from January 22, 2023 showed top normal LV size with low normal or mildly globally reduced systolic function, LVEF of 50 to 55%, thickened mitral valve leaflets with MAC and mild MR, aortic sclerosis with mild AI, normal right heart
with normal PA systolic pressure, dilated aorta with maximum diameter of 4.4 cm.
Pharmacologic nuclear stress test�on January 2023 showed abnormal perfusion imaging with small, mild apical inferior and apical lateral defect suggestive of mild ischemia.� No evidence of scar.� Systolic function was mildly reduced at 42% on stress
test.� Compared to prior study from 2020, apical lateral and apical inferior defects were present then but also inferior, mid inferior and inferolateral segments.� LVEF prior was 40%
Left heart catheterization�from July 28, 2015: Mild tapering of distal left main.� Complex high-grade stenosis from proximal to mid LAD involving the origin of a very large diagonal branch.� The mid LAD beyond the diagonal has a 60% stenosis and
60% distal stenosis.� Nonobstructive disease in the other arteries.� LV gram suggested an LVEF of 25 to 30%.� On August 01, 2015 he underwent a 3.0 x 28 mm Alpine Xience 5 drug-eluting stent to the ostial LAD
Left heart catheterization from May 10, 2023: LVEDP 14. Left main large vessel which gives rise to LAD and circumflex. 20% distal left main stenosis. Diffuse atherosclerotic in-stent restenosis up to 50% spanning ostial to mid LAD involving
origin of a very large diagonal branch. Mid LAD beyond diagonal branch has 50 to 60% stenosis and a focal 56% distal stenosis. iFR is grossly positive at 0.7 in the mid to distal LAD. 50 to 60% ostial diagonal stenosis. Circumflex is large with
bifurcating OM1 with 30 to 40% stenosis and diffuse atherosclerotic plaque. RCA is large dominant vessel moderately calcified with a high anterior origin from the aorta. Diffuse atherosclerotic plaque. Following this procedure patient was seen by
CT surgery and was deemed too high risk. Decision was made for medical therapy; could consider high risk PCI if fails medical therapy
Subjective Data
-
Date of Service:
Date of Service: November 20, 2023
Chief Complaint: Pulmonary Follow Up (Hypoxemic respiratory failure-abnormal CT chest) and Dyspnea Follow Up
Subjective:
Patient seen and evaluated today at bedside. Currently on 4 L/min saturating 95%. He has no complaints, feels generally weak. Will be getting dialysis today. He denies chest pain, headache, fevers or chills. Still feels mild shortness of breath
with activity.
Review of Systems
General: Other (Negative unless mentioned above)
Objective Data
Data Reviewed
Vital Signs / I&O / Oxygen:
Vital Signs
Temp Pulse Resp BP Pulse Ox
97.9 F 98 15 140/54 96
11/20/23 07:00 11/20/23 10:00 11/20/23 10:00 11/20/23 08:00 11/20/23 10:18
Intake and Output
11/19/23 11/20/23 11/21/23
06:59 06:59 06:59
Intake Total 960 / 960 120 / 360 240 / 240
Output Total 1200 / 1200 400 / 400 625 / 625
Balance -240 / -240 -280 / -40 -385 / -385
SaO2 96
Nasal Cannula flow liters per 4
minute
Physical Exam
General: Respiratory Distress (n) and Comfortable
HEENT: Normocephalic, Anicteric and Moist Mucous Membranes
Cardiovascular: S1-S2 and Peripheral Edema (Negative)
Respiratory: Wheeze (Negative), Crackles (Bibasilar), Rhonchi (Negative), Non-Labored Respirations, Accessory Resp Muscle Use (Negative) and Stridor (n)
GI: Soft, Non Distended, Non Tender and Normal Bowel Sounds
Neurology: AO x 3 and Tremors (Negative)
Skin: Warm, Dry, Cyanosis (n), Jaundice (n), Rash (n) and Other (Right anterior chest wall HD catheter in place)
Labs/Micro/Reports
Lab Data
11/20/23 03:08
11/20/23 03:08
Laboratory Results
11/20/23
03:08
PT 19.6 H
INR 1.68
--- NOTE | 2023-11-20 10:52 | PTCARENOTE ---
Assumed care of pt at 0645. AAOx3. Pt was in NSR at start of shift. At approximately 0815 pt converted to controlled Afib. Confirmed with EKG. HRs 90-100s. Dr. Miles aware. Pt asymptomatic. SaO2 96% on 4L nasal cannula. VSS. Plan for HD today.
Assessment documented. Pt resting in bed, call gibbons within reach.
[2023-11-20 11:58] LABS: Glucose - Point of Care 294 mg/dl (70-99)
[2023-11-20] MEDS: NOVOLOG FLEXPEN-LOW RESISTANCE 3 UNITS SC (12:00)
--- NOTE | 2023-11-20 12:36 | W.PN.HOSP.TC ---
Today's Communication/Plan
-
Monitor vital signs and see plan
went back into A-fib, rate controlled
on amio
Check mag
Wean oxygen as tolerated
HD per nephrology
on steroids
Assessment / Plan
Assessment / Plan
Gen-AAOx3, NAD
HEENT-NC, AT, anicteric, clear oral mm
Neck-supple
CV-reg, no M, +S1/S2
Lungs-bilateral rales, rhonchi
Abd-soft, NT, ND
Ext-no edema
Musculoskeletal-no cyanosis, clubbing
Skin-warm and dry
Neuro-grossly non-focal
Psych-calm, cooperative
Acute hypoxic respiratory failure - likely multifactorial etiology including acute on chronic heart failure, interstitial lung disease. Has underlying COPD, ABELARDO. Oxygenation improving, now on NC oxygen at 3-4 L. Wean down as able. Not on home
oxygen. Was on BiPAP at times
Clinically doubt pneumonia. Off antibiotics.
Getting systemic steroids for possible interstitial lung process as per pulmonary, now on Decadron 4 mg p.o. daily. cardiology still has pt on 200mg BID amio; Spoke with Dr Artis and he wants 200mg BID x 1 month and then dec to 200mg daily
Acute on chronic heart failure with reduced EF exacerbation -very difficult to assess true volume status. Cardiology consulted. Discharged last week off diuretics. on IV Lasix. also being managed with HD
Acute on chronic anemia -baseline hemoglobin averages 8-9, admission hemoglobin 6.4. four units PRBC transfused so far. Must use irradiated, leuko reduced. Does not need to be CMV negative, discussed with Dr. Alexis.
Gets Aranesp q3 weeks by Dr Alexis, due for next dose this . We are unable to give Aranesp here in the hospital as it is nonformulary. Discussed with patient and .
Acute thrombocytopenia -platelet count 154k. Unclear etiology. Monitor for now.
CLL/MGUS/myelofibrosis -was on Momelotinib.
ESRD now on HD- tunnelled catheter, hemodialysis per nephrology. Patient tolerating. Bleeding from dialysis catheter improving. nephrology to decide on status of HD
Paroxysmal atrial fibrillation -on warfarin, amiodarone. INR 1.68 today. Change warfarin back to 2 mg
went back to afib 11/19; rate controlled
check mag
Hyponatremia
Monitor
CAD -stable.
COPD without exacerbation
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
Essential hypertension - stable.
Hyperlipidemia -on rosuvastatin.
History of CDAD -completed vancomycin taper.
BPH
Full-thickness coccyx/perineal ulcer, likely healing PI stage 3
Full code
Dispo -SNF when medically stable.
I spent a total of 52 minutes with the patient or on the floor. More than 50% of this time involved counseling and coordination of care.
Anticipated Discharge: 24 - 48 hours
Subjective/Interval History
-
Date of Service: November 20, 2023
denies pain
Objective Data
-
Labs:
Laboratory Results
11/20/23
03:08
WBC 11.2 H
Hgb 8.0 L
Hct 24.7 L
Plt Count 154 D
PT 19.6 H
INR 1.68
Sodium 133 L
Potassium 3.9
Chloride 96 L
Carbon Dioxide 29
BUN 78 H
Creatinine 2.9 H
Glucose 146 H
Calcium 7.7 L
Total Bilirubin 1.6 H
AST 26
ALT 27
Alkaline Phosphatase 80
Vital Signs:
Vital Signs
Temp Pulse Resp BP Pulse Ox
97.9 F 98 15 140/54 96
11/20/23 07:00 11/20/23 10:00 11/20/23 10:00 11/20/23 08:00 11/20/23 10:18
I&O
11/19/23 11/20/23 11/21/23
06:59 06:59 06:59
Intake Total 960 / 960 120 / 360 240 / 240
Output Total 1200 / 1200 400 / 400 625 / 625
Balance -240 / -240 -280 / -40 -385 / -385
[2023-11-20] MEDS: FLEXBUMIN 25% FOR HEMODIALYSIS 12.5 GRAMS IV ×2 (13:02→15:04)
[2023-11-20] MEDS: MANNITOL 25% 12.5 GRAMS IV ×2 (13:02→15:04)
--- NOTE | 2023-11-20 13:37 | W.PN.NEPH.HD ---
Assessment
-
Patient seen on dialysis
Systolic blood pressure stable with current UF
Next dialysis will be Saturday
Progress Note - Hemodialysis
-
Date of Service: November 20, 2023
Duration: 30 minutes and 3 hours
Potassium Bath: 2
Calcium Bath: 3
Opti-Dialyzer: 160
Ultrafiltration: Other (2 kg as hemodynamically tolerated)
Blood Flow: 400
Dialysate Flow: 600
Heparin: None
EPO: 10,000
[2023-11-20] MEDS: RETACRIT 10000 UNITS IV (14:27)
[2023-11-20] MEDS: LASIX 40 MG IV (16:36)
[2023-11-20] MEDS: PROSCAR 5 MG PO (17:00)
[2023-11-20] MEDS: CRESTOR 5 MG PO (17:00)
[2023-11-20] MEDS: COUMADIN 2 MG PO (17:01)
[2023-11-20] MEDS: FEOSOL 325 MG PO (17:01)
--- NOTE | 2023-11-20 17:18 | CM ---
Patient with Dx Acute on chronic hypoxic respiratory failure, HF, anemia. O2 4L. Receiving IV Lasix. PT & OT recommend skilled rehab.
Spoke with [facility]; patient's final schedule is MWF 11:20am. Schedule Letter provided.
Spoke with Brenna, [facility]; [facility] is requesting documentation by the motor mechanic of Dx ESRD. Informed her only hospitalist has documented this at this time - await updated nephrology notes and will send.
Plan send updated nephrology notes with Dx ESRD to [facility] & [facility].
Plan follow up with [facility] for clearance by [facility].
--- NOTE | 2023-11-20 17:24 | PTCARENOTE ---
Pt back in NSR. HRs 60s. Assessment otherwise unchanged.
[2023-11-20 17:28] LABS: Glucose - Point of Care 97 mg/dl (70-99)
[2023-11-20] MEDS: LANTUS 0.100000000000000006 UNITS SC (20:58)
[2023-11-20 21:10] LABS: Glucose - Point of Care 130 mg/dl (70-99)
[2023-11-20] MEDS: TYLENOL 500 MG PO (22:50)
[2023-11-21] VITALS (11 sets, daily range): BP systolic 107–147; BP diastolic 46–65; PULSE 62; O2SAT 95; BMI 19.2
[2023-11-21 03:41] LABS: % Basophils 0.2 % (0-2); % Immature Granulocytes 3.2 % (0-0.5); % Lymphocytes 4.5 % (20.5-51.1); % Neutrophils 89.1 % (42.2-75.2); Absolute Immature Granulocytes 0.4 10^3/uL (0-0.05); Absolute Lymphocytes 0.5 10^3/uL (1.2-3.4); Absolute Monocytes 0.3 10^3/uL (0.1-0.6); Absolute Neutrophils 9.8 10^3/uL (1.4-6.5); Hematocrit 27.7 % (39.0-52.0); Hemoglobin 8.8 g/dL (13.0-18.0); Mean Corp Hgb Conc. 31.8 g/dL (33.0-37.0); Mean Corpuscular Hgb 28.3 pg (27.0-31.0); Mean Corpuscular Volume 89.1 fL (80.0-94.0); Mean Platelet Volume 10.8 fL (7.4-10.4); Nucleated Red Blood Cells % 0.5 % (-); Platelet Count 174 10^3/uL (130-400); Red Blood Cell Count 3.11 10^6/uL (4.70-6.10); Red Cell Dist. Width 19.5 % (11.5-14.5)
[2023-11-21 03:53] LABS: INR 1.48
[2023-11-21 04:11] LABS: ALT (SGPT) 32 U/L (0-50); AST (SGOT) 31 U/L (17-59); Albumin 3.5 g/dl (3.5-5.0); Alkaline Phosphatase 78 U/L (38-126); Blood Urea Nitrogen 39 mg/dl (9-20); Calcium 8.5 mg/dl (8.4-10.2); Carbon Dioxide 28 mmol/L (22-30); Chloride 99 mmol/L (98-107); Estimated Creatinine Clearance 24 ml/min; Glucose 73 mg/dl (70-99); Potassium 3.7 mmol/L (3.5-5.1); Sodium 136 mmol/L (135-145); Total Bilirubin 1.9 mg/dl (0.2-1.3); Total Protein 5.1 g/dl (6.3-8.2); eGFR 32.71
--- NOTE | 2023-11-21 05:02 | PTCARENOTE ---
Patient's bottle of home ojjaara sent down to pharmacy for storage. Paperwork filled out and in chart.
[2023-11-21 06:51] LABS: Glucose - Point of Care 97 mg/dl (70-99)
[2023-11-21] MEDS: NOVOLOG FLEXPEN 10 UNITS SC ×2 (07:22→12:12)
[2023-11-21] MEDS: NOVOLOG FLEXPEN-LOW RESISTANCE SC (07:23)
[2023-11-21] MEDS: DUONEB 3 ML INH (08:06)
[2023-11-21] MEDS: PULMICORT 0.5 MG INH (08:06)
--- NOTE | 2023-11-21 08:29 | PN.DE.MGMTRT ---
Insulin Management
- -
11/21/2023: Diabetes Management Follow up:
Pt readmitted 11/09 for acute respiratory hypoxia after a lengthy hospitalization 10/23 to 11/05 with Acute Hypoxic respiratory failure 2/2 to pneumonia +/- Interstitial Pneumonitis in setting of Momelotinib. PMH: CKD4, HFrEF, CLL/myelofibrosis, anemia
of chronic disease, PAFib, CAD, COPD, HTN, HLD, recent C-Diff, BPH
Current A1C 4.8%, Cr 2.9, eGFR 20.94 today.
Pt states he has no known hx of Diabetes Mellitus but has taken insulin at home in the past and has working glucose monitor. States prior to this admission he has been monitoring his blood sugars before each meal and has noted range of 80-150 in
morning and higher glucose level in the evening. States he has been holding premeal insulin if blood sugar is <150 but consistently taking the Lantus every night.
Patient awake, alert, oriented, sitting up in bed, offers no complaints. Has tunneled cath in place for HD.
Dexamethasone continues at 4 mg daily.
Glucose range yesterday pre meal 97 to 294. Fasting glucose this AM 73 venous, will further reduce HS Lantus to 8 units, continue Farxiga 5 mg daily and NovoLog 10 units AC with low corrective.
Discussed with nurse.
Diabetes History
- -
Type of Diabetes: 2 requiring insulin
Pre-Admission Diabetes Regimen
11/21/23
03:17
Creatinine 2.0 H
Lab Results
Hemoglobin A1c 4.8 % (4.0-5.6) 11/11/23 04:00
Insulin Pump Settings
IP Diabetes Regimen
11/20/23 11/20/23 11/20/23
11:47 17:17 20:59
Glucose
POC Glucose 294 H 97 130 H
11/21/23 11/21/23
03:17 06:40
Glucose 73
POC Glucose 97
Meal type: Dinner
Meal type: Lunch
Amount consumed: 100%
Amount consumed: Patient refused
Patient Education
[2023-11-21] MEDS: NITRO-DUR 0.599999999999999978 MG TRANSDERM (09:14)
[2023-11-21] MEDS: PACERONE 200 MG PO (09:15)
[2023-11-21] MEDS: ASPIR LOW (ENTERIC COATED) 81 MG PO (09:15)
[2023-11-21] MEDS: TOPROL XL 12.5 MG PO (09:15)
[2023-11-21] MEDS: LASIX 40 MG IV (09:16)
[2023-11-21] MEDS: FARXIGA 5 MG PO (09:16)
[2023-11-21] MEDS: MUCINEX 600 MG PO (09:16)
[2023-11-21] MEDS: DECADRON 4 MG PO (09:16)
--- NOTE | 2023-11-21 09:57 | W.PN.UPDATE ---
Update Note
Progress Note Update
Patient is to be considered end-stage renal disease status
--- NOTE | 2023-11-21 10:06 | W.PN.NEPH.PH ---
Today's Communication / Plan
-
Dialysis tomorrow
Assessment/Plan
-
ESRD this admission
Acute on chronic hypoxic respiratory
COPD/interstitial lung disease/recent pneumonia
History of congestive heart failure
Anemia
CLL/MGUS/myelofibrosis
Type 2 diabetes
Hypertension
BPH
History of C. difficile (on vancomycin)
Metabolic acidosis
Plan:
-HD tomorrow .orders provided
-Catheter site with less bleeding
-Hemodynamically stable
-Anemia better s/p transfusion
-steroids for possible pneumonitis per pulm
-on amiodarone
-HD tomorrow orders provided
-Patient is to go to [facility] for rehab and dialysis
-
-
Date of Service: November 21, 2023
CC / HPI / ROS
-
Chief Complaint:
CKD stage V, now on HD
History of Present Illness:
Hemodynamically stable
Acute on chronic renal failure now ESRD
Review of Systems:
Nonoliguric
Weights down
sob with minimal exertion remains on 2 L nasal cannula oxygen
Labs
-
Labs:
WBC 11.0 10^3/uL (4.8-10.8) H 11/21/23 03:17
RBC 3.11 10^6/uL (4.70-6.10) L 11/21/23 03:17
Hgb 8.8 g/dL (13.0-18.0) L 11/21/23 03:17
Hct 27.7 % (39.0-52.0) L 11/21/23 03:17
Plt Count 174 10^3/uL (130-400) 11/21/23 03:17
Sodium 136 mmol/L (135-145) 11/21/23 03:17
Potassium 3.7 mmol/L (3.5-5.1) 11/21/23 03:17
Chloride 99 mmol/L (98-107) 11/21/23 03:17
Carbon Dioxide 28 mmol/L (22-30) 11/21/23 03:17
BUN 39 mg/dl (9-20) H 11/21/23 03:17
Creatinine 2.0 mg/dL (0.7-1.3) H 11/21/23 03:17
eGFR 32.71 11/21/23 03:17
Glucose 73 mg/dl (70-99) 11/21/23 03:17
Calcium 8.5 mg/dl (8.4-10.2) 11/21/23 03:17
Phosphorus 4.9 mg/dl (2.5-4.5) H 11/11/23 06:36
Lwf-D-Behtiozzbcn Pept > 80975 pg/ml 11/10/23 23:47
Albumin 3.5 g/dl (3.5-5.0) 11/21/23 03:17
Physical Exam
-
Vital Signs:
Vital Signs
Temp Pulse Resp BP Pulse Ox
98.0 F 62 19 107/65 96
11/21/23 07:20 11/21/23 09:15 11/21/23 08:09 11/21/23 09:16 11/21/23 08:09
Cardiovascular:: Regular rate and rhythm
Respiratory:: Bilateral: Coarse
Lung Excursion:: Normal
Abdomen:: Nontender and Soft
Bowel Sounds:: Normal
Extremity Edema:: +1: Bilateral:
Crespo Catheter: No
--- NOTE | 2023-11-21 10:33 | W.PN.PUL3 ---
Today's Communication / Plan
-
Continue oral dexamethasone --> DC on decadron 3mg once daily, we will continue to wean in the outpatient setting
Dialysis per renal --> last session yesterday
Wean down oxygen as tolerated with O2 eval prior to discharge --> now on 2L/min nasal cannula and off of midflow
Continue lasix with strict I/O
Increase activity as able
PT/OT --> rec'd skilled rehab upon discharge --> pt going to [facility] today
Nebulizer therapy
Patient being prepared for discharge home today. Pulmonary service will now sign off. Please reconsult if there are any additional questions/concerns, or if patient's respiratory status deteriorates.
Assessment
-
83-year-old man with extensive past medical history. Recently discharged from the hospital, at that time he was admitted with similar complaints of worsening shortness of breath and hypoxemia. He was treated with IV diuretics also he was given
high-dose of the steroids. At that time chest x-ray clear prior to discharge. Plan was to discharge steroids for anti-inflammatory properties, patient is reluctant to use systemic prednisone.
He did complete a course of Zosyn as well. He was discharged on 1 L of supplemental oxygen. Comes back with worsening shortness of breath and hypoxemia up to requiring high flow oxygen. Chest x-ray abnormal after complete clearance prior to
discharge.
-
Chronic conditions PLATE HANGER: CLL, myelofibrosis, A-fib s/p multiple DCCV on chronic amiodarone and warfarin, CAD with history of KS (08/2015) s/p stent to LAD, HFpEF, COPD, hypertension, hypercholesterolemia, DM type II, CKD, anemia and history of C.
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
gout, BPH
Impression:
#Acute respiratory failure with hypoxia requiring high flow oxygen --> now on nasal cannula @ 2L/min
#Bilateral infiltrates-likely acute pulmonary edema, proBNP >35690
#Acute on chronic anemia-no evidence for bleeding.
#Acute HFmrEF exacerbation (LVEF: 44% via TTE from 10-25-2023)
#Mild-moderate MR
#GER on CKD now on intermittent HD via temporary HD catheter (placed by IR on 11/15/2023)
#Sacral decubitus ulcer present on admission.
#Hx of asthma/copd not in an acute exacerbation
#Hx of ABELARDO on auto-BiPAP
#History of bronchiectasis on vest therapy at home
Plan:
Respiratory decompensation fairly rapid after recent discharge on 11/05-acute on chronic HF exacerbation, proBNP >44680
Supplemental oxygen as needed-was discharged on 1 L-on 11/06/2023
BiPAP/noninvasive ventilation if needed-was on BiPAP 12/5 cm with a history of obstructive sleep apnea-tolerating
Initially on high flow now, then transitioned to 3-4L midflow, nown on nasal cannula at 4L/min --> continue to wean as tolerated
Patient has been transitioned to Decadron 4 mg daily since 11/16/2023 - seems to be responding to steroids. --> ok to discharge home on 3mg daily and we will continue to slowly wean in the outpatient setting
Has allergy to prednisone noted in record
Mucolytics
Aspiration precautions
Nebulizers-budesonide and DuoNebs
CT chest 11/12/2023 summarized below
Currently no strong evidence for infection.
Procalcitonin was slightly elevated at 0.3 on 11/11/2023-not valid inpatient with elevated creatinine and BUN at this point
Observe off antibiotics
Continue with the diuresis as tolerated --> currently on lasix 40mg IV BID from 80mg IV BID --> he is making urine which is encouraging
Hemodialysis started on 11/15/2023 --> last session yesterday
Nephrology following - recs appreciated
Amiodarone 200 mg daily-this dose usually does not cause pulmonary toxicity, however, will monitor closely --> he is now on 200mg BID now since 11/14
Continue to hold momelotinib -review adverse effect profile. No mention for interstitial lung pneumonia but increased risk of respiratory failure and pneumonia.
states the patient has not received since prior admission.
Momelotinib - continues to be on hold - rule out drug-induced pneumonitis-on the steroids as above.
Hemoglobin management per primary team. Transfuse as necessary to keep >7 g/dL
Last blood transfusion on 11/16/2023
Continue coumadin with goal INR 2-3
Monitor thrombocytopenia
Sacral decubitus ulcers-local care
PT/OT --> rec'd skilled rehab upon discharge -going to [facility] today
DVT prophylaxis-SCDs. On Coumadin with goal INR 2-3
Outpatient follow-up with Dr. Camara after discharge.
updated by Dr. Rivera 11/12/2023.
Patient being prepared for discharge home today. Pulmonary service will now sign off. Thank you for allowing us to be involved in the care of this patient. Please reconsult if there are any additional questions/concerns, or if patient's
respiratory status deteriorates.
Total time spent today was 35 minutes for this encounter. Time includes reviewing laboratory test/imaging results, reviewing pertinent medical records, obtaining and reviewing medical history, performing an appropriate exam, ordering medications,
tests and procedures. Time also includes documentation of this encounter, coordinating patient care and communicating with other healthcare professionals. Total time does not include separately billed tests performed on this date of service.

Diagnostic Data:
CXR 11-18-2023: Improved as compared with prior (CXR on 11/10/2023) with decreased diffuse reticular opacities and decreased right mid and upper lung consolidation.
CXR 10-24-2023: The heart size is within the limits of normal. There are bilateral airspace and interstitial infiltrates, right greater than left, consistent with diffuse pneumonia.Regional skeleton intact.
CT of the chest 11/12/2023: Reviewed showed extensive bilateral ground glass opacities. Bilateral small pleural effusions. Differential diagnosis continues to be pulmonary edema versus inflammatory pneumonitis.
Discussed with nephrology given stability and weight felt that probably volume overload not playing significant role. Difficult to assess clinically.
Echo 10/25/2023: EF 44%, global hypokinesis more prominent in mid and basal segments of anterior lateral wall. Mild to moderate MR. Mild AI. Mild TR.
Echo 09/02/23: EF 45-50% with mild global hypokinesis and more notable mid to apical anterolateral. EF 50-55% visual by echo Jun 2023.
Echocardiogram�from January 22, 2023 showed top normal LV size with low normal or mildly globally reduced systolic function, LVEF of 50 to 55%, thickened mitral valve leaflets with MAC and mild MR, aortic sclerosis with mild AI, normal right heart
with normal PA systolic pressure, dilated aorta with maximum diameter of 4.4 cm.
Pharmacologic nuclear stress test�on January 2023 showed abnormal perfusion imaging with small, mild apical inferior and apical lateral defect suggestive of mild ischemia.� No evidence of scar.� Systolic function was mildly reduced at 42% on stress
test.� Compared to prior study from 2020, apical lateral and apical inferior defects were present then but also inferior, mid inferior and inferolateral segments.� LVEF prior was 40%
Left heart catheterization�from July 28, 2015: Mild tapering of distal left main.� Complex high-grade stenosis from proximal to mid LAD involving the origin of a very large diagonal branch.� The mid LAD beyond the diagonal has a 60% stenosis and
60% distal stenosis.� Nonobstructive disease in the other arteries.� LV gram suggested an LVEF of 25 to 30%.� On August 01, 2015 he underwent a 3.0 x 28 mm Alpine Xience 5 drug-eluting stent to the ostial LAD
Left heart catheterization from May 10, 2023: LVEDP 14. Left main large vessel which gives rise to LAD and circumflex. 20% distal left main stenosis. Diffuse atherosclerotic in-stent restenosis up to 50% spanning ostial to mid LAD involving
origin of a very large diagonal branch. Mid LAD beyond diagonal branch has 50 to 60% stenosis and a focal 56% distal stenosis. iFR is grossly positive at 0.7 in the mid to distal LAD. 50 to 60% ostial diagonal stenosis. Circumflex is large with
bifurcating OM1 with 30 to 40% stenosis and diffuse atherosclerotic plaque. RCA is large dominant vessel moderately calcified with a high anterior origin from the aorta. Diffuse atherosclerotic plaque. Following this procedure patient was seen by
CT surgery and was deemed too high risk. Decision was made for medical therapy; could consider high risk PCI if fails medical therapy
Subjective Data
-
Date of Service:
Date of Service: November 21, 2023
Chief Complaint: Pulmonary Follow Up (Hypoxemic respiratory failure-abnormal CT chest) and Dyspnea Follow Up
Subjective:
Patient seen and evaluated today at bedside. Afebrile overnight. Being prepared for discharge today. He is upset he is being discharged home. He denies abdominal pain, chest pain, fevers or chills.
Review of Systems
General: Other (Negative unless mentioned above)
Objective Data
Data Reviewed
Vital Signs / I&O / Oxygen:
Vital Signs
Temp Pulse Resp BP Pulse Ox
98.0 F 62 19 107/65 95
11/21/23 07:20 11/21/23 09:15 11/21/23 08:09 11/21/23 09:16 11/21/23 09:56
Intake and Output
11/20/23 11/21/23 11/22/23
06:59 06:59 06:59
Intake Total 120 / 360 480 / 480 240 / 240
Output Total 400 / 400 825 / 825 200 / 200
Balance -280 / -40 -345 / -345 40 / 40
SaO2 95
Nasal Cannula flow liters per 2
minute
Physical Exam
General: Respiratory Distress (n) and Comfortable
HEENT: Normocephalic, Anicteric and Moist Mucous Membranes
Cardiovascular: S1-S2 and Peripheral Edema (Negative)
Respiratory: Wheeze (Negative), Crackles (Bibasilar), Rhonchi (Negative), Non-Labored Respirations, Accessory Resp Muscle Use (Negative) and Stridor (n)
GI: Soft, Non Distended, Non Tender and Normal Bowel Sounds
Neurology: AO x 3 and Tremors (Negative)
Skin: Warm, Dry, Cyanosis (n), Jaundice (n), Rash (n) and Other (Right anterior chest wall HD catheter in place)
Labs/Micro/Reports
Lab Data
11/21/23 03:17
11/21/23 03:17
Laboratory Results
11/21/23
03:17
PT 18.0 H
INR 1.48
--- NOTE | 2023-11-21 11:42 | W.PN.HOSP.TC ---
Addendum entered and electronically signed by Ryan Miles MD 11/21/23 12:33:
Spoke with pulmonary and they suggested weaning Decadron to 3 mg daily and they will further wean outpatient in clinic
Per nephrology no need for Lasix and will manage volume status through HD
Time of discharge 59 minutes
Original Note:
Today's Communication/Plan
-
Monitor vital signs and see plan
Increase Coumadin to 5 mg
Monitor INR
Wean oxygen as tolerated
Continue with steroids
HD tomorrow
Discharge planning
Transfer out of IMU
Assessment / Plan
Assessment / Plan
Gen-AAOx3, NAD
HEENT-NC, AT, anicteric, clear oral mm
Neck-supple
CV-reg, no M, +S1/S2
Lungs-bilateral rales, rhonchi
Abd-soft, NT, ND
Ext-no edema
Musculoskeletal-no cyanosis, clubbing
Skin-warm and dry
Neuro-grossly non-focal
Psych-calm, cooperative
Acute hypoxic respiratory failure - likely multifactorial etiology including acute on chronic heart failure, interstitial lung disease. Has underlying COPD, ABELARDO. Oxygenation improving, now on NC oxygen at 2 L. Wean down as able. Not on home
oxygen. Was on BiPAP at times
Clinically doubt pneumonia. Off antibiotics.
Getting systemic steroids for possible interstitial lung process as per pulmonary, now on Decadron 4 mg p.o. daily. cardiology still has pt on 200mg BID amio; Spoke with Dr Artis and he wants 200mg BID x 1 month and then dec to 200mg daily
Acute on chronic heart failure with reduced EF exacerbation -very difficult to assess true volume status. Cardiology consulted. Discharged last week off diuretics. on IV Lasix. also being managed with HD
Acute on chronic anemia -baseline hemoglobin averages 8-9, admission hemoglobin 6.4. four units PRBC transfused so far. Must use irradiated, leuko reduced. Does not need to be CMV negative, discussed with Dr. Alexis.
Gets Aranesp q3 weeks by Dr Alexis, due for next dose this . We are unable to give Aranesp here in the hospital as it is nonformulary. Discussed with patient and .
Acute thrombocytopenia -now improving platelet count 174k. Unclear etiology. Monitor for now.
CLL/MGUS/myelofibrosis -was on Momelotinib.
ESRD now on HD- tunnelled catheter, hemodialysis per nephrology. Patient tolerating. Bleeding from dialysis catheter resolved. nephrology to decide on status of HD
Paroxysmal atrial fibrillation -on warfarin, amiodarone. INR 1.48 today. Increase Coumadin to 5 mg
went back to afib 11/19; rate controlled; now back in normal sinus
Hyponatremia
Monitor
CAD -stable.
COPD without exacerbation
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 monitor
Essential hypertension - stable.
Hyperlipidemia -on rosuvastatin.
History of CDAD -completed vancomycin taper.
BPH
Full-thickness coccyx/perineal ulcer, likely healing PI stage 3
Full code
Dispo -SNF when medically stable.
I spent a total of 51 minutes with the patient or on the floor. More than 50% of this time involved counseling and coordination of care.
Anticipated Discharge: Within 24 hours
Subjective/Interval History
-
Date of Service: November 21, 2023
denies pain
Objective Data
-
Labs:
Laboratory Results
11/21/23
03:17
WBC 11.0 H
Hgb 8.8 L
Hct 27.7 L
Plt Count 174
PT 18.0 H
INR 1.48
Sodium 136
Potassium 3.7
Chloride 99
Carbon Dioxide 28
BUN 39 H
Creatinine 2.0 H
Glucose 73
Calcium 8.5
Total Bilirubin 1.9 H
AST 31
ALT 32
Alkaline Phosphatase 78
Vital Signs:
Vital Signs
Temp Pulse Resp BP Pulse Ox
98.0 F 62 19 107/65 95
11/21/23 07:20 11/21/23 09:15 11/21/23 08:09 11/21/23 09:16 11/21/23 09:56
I&O
11/20/23 11/21/23 11/22/23
06:59 06:59 06:59
Intake Total 120 / 360 480 / 480 240 / 240
Output Total 400 / 400 825 / 825 200 / 200
Balance -280 / -40 -345 / -345 40 / 40
[2023-11-21 11:53] LABS: Glucose - Point of Care 180 mg/dl (70-99)
[2023-11-21] MEDS: NOVOLOG FLEXPEN-LOW RESISTANCE 1 UNITS SC (12:12)
--- NOTE | 2023-11-21 12:31 | W.DCSUMMARY ---
Discharge Summary
Discharge Data
Date of Admission: 11/11/23
Date of Discharge: 11/21/23
-
Pending Results: No
Hospital Course
83-year-old male with past medical history of anemia, CHF, COPD, CLL/MGUS/myelofibrosis, CKD, paroxysmal atrial fibrillation, diabetes mellitus 2, essential hypertension, hyperlipidemia, BPH, sacral ulcer came to the hospital with acute hypoxic
respiratory failure which was likely thought was multifactorial secondary to acute on chronic congestive heart failure, COPD, ABELARDO and interstitial lung disease. Patient was seen by cardiology, pulmonary and nephrology throughout hospitalization.
On this admission patient was started on hemodialysis and was also initially on IV Lasix. On discharge nephrology recommended patient to be managed through hemodialysis. For his interstitial lung disease he was initially started on IV steroids
which was later transitioned to oral Decadron. On discharge pulmonary recommended patient to be weaned to 3 mg oral daily Decadron and they will further wean his steroids outpatient in clinic. For his atrial fibrillation his amiodarone was
increased to 20 mg twice daily and cardiology recommended to continue 20 mg twice daily for 1 month and then decrease to 20 mg daily. While he was in the hospital he also had acute on chronic anemia for which he required blood transfusion. On
discharge his INR was 1.4 for which his Coumadin was increased to 5 mg. He was instructed to get INR checked at SNF. For his breathing pulmonary also recommended BiPAP which she was using before. He was still on oxygen prior to discharge. Once
his symptoms continue to improve, with all consultants agreement patient was discharged to SNF with instructions to follow-up with all his physicians outpatient.
Discharge Plan
-
Patient Disposition: Detention/SNF
Discharge Diagnosis/Procedures: Acute hypoxic respiratory failure - likely multifactorial etiology including acute on chronic heart failure, interstitial lung disease
Acute on chronic heart failure with reduced EF exacerbation
Acute on chronic anemia
ESRD now on HD
Paroxysmal atrial fibrillation
Diet: 2 Gram Sodium and Other diet
Additional Diets: 40 ounce fluid restriction, 2 g K
Activity: As tolerated
Driving Restrictions: Not until seen by your Dr
Bathing Restrictions: None
Blood Work: INR daily or every other day until therapeutic
Activity Restrictions/Additional Instructions:
Wound Care Instructions
sacrum/gluteal cleft: Clean with soap and water, skin prep periwound, smear of honey gel, adaptic, alginate and silicone bordered foam change daily and prn drainage.
air mattress or overlay with turning schedule
offloading cushion when sitting with frequent shifts in position
increase protein in diet.
Follow up at wound care center call for an appointment.
Per cardiology 200 mg twice daily amiodarone for 1 month and then reduce to 200 mg daily
Increase your Coumadin to 5 mg every afternoon due to subtherapeutic INR. Monitor your INR
Weaning your Decadron to 3 mg daily. You will be following up with pulmonary outpatient and they will further wean your steroids
BiPAP/noninvasive ventilation if needed-was on BiPAP 12/5 cm with a history of obstructive sleep apnea-tolerating
Instructions: *[facility] Heart Failure Instructions
Referrals:
Rob Santos MD [Family Provider] - in less than 1 week
Deb Paz PA-C [Specified Professional Personl] - 12/27/23 10:40 am (You have a cardiology follow-up appointment at the [place] office with Dr. Snow's physician conservation assistant, Deb. Please call with questions)
Gurjit Camara MD [Active] - in two to three weeks
Sravani Thomas MD [Active] -
Prescriptions:
New
amiodarone [Pacerone] 200 mg Tablet
200 mg PO BID Qty: 0 0RF
ipratropium-albuterol 0.5 mg-3 mg(2.5 mg base)/3 mL Solution For Nebulization
3 ml inhalation R BID Qty: 0 0RF
metoprolol succinate 25 mg Tablet Extended Release 24 Hr
12.5 mg PO BID Qty: 0 0RF
Continued
rosuvastatin 5 MG tablet
5 mg PO QPM
nitroglycerin [Nitro-Dur] 0.6 mg/hr Patch 24 Hour
1 patch TRANSDERMAL DAILY Qty: 0
Patient Comments:
10/24/2023, pt. currently wearing a patch.
ferrous sulfate 325 mg (65 mg iron) Tablet
325 mg PO QPM Qty: 0
finasteride 5 mg Tablet
5 mg PO QPM
febuxostat 40 mg Tablet
40 mg PO DAILY
Hold Instructions: Until renal function improve
aspirin 81 mg Tablet,Delayed Release (Dr/Ec)
81 mg PO DAILY
guaifenesin 600 mg Tablet Extended Release 12hr
600 mg PO BID
Aranesp
1 dose SC Q3W
Patient Comments:
unknown dosage
acetaminophen [Tylenol Extra Strength] 500 mg Tablet
500 mg PO DAILYPRN PRN (Reason: mild pain)
carboxymethylcellulose sodium 1 % Drops, Liquid Gel
1 drp BOTH EYES DAILYPRN PRN (Reason: dry eyes)
Ojjaara 200 mg Tablet
200 mg PO BID
Hold Instructions: Resume on 01/16/24. until cleared by hematology
ipratropium-albuterol 0.5 mg-3 mg(2.5 mg base)/3 mL Solution For Nebulization
3 ml INHALATION DAILYPRN PRN (Reason: sob)
dapagliflozin propanediol [Farxiga] 5 mg Tablet
5 mg PO DAILY
Changed
dexamethasone 1 mg Tablet
3 mg PO DAILY Qty: 0 0RF
Patient Comments:
per pt for 3 days
warfarin [Jantoven] 2 mg Tablet
5 mg PO QPM 30 Days Qty: 30 0RF
budesonide 0.5 mg/2 mL Suspension For Nebulization
0.5 mg INHALATION R BID Qty: 0 0RF
insulin lispro [Humalog KwikPen Insulin] 100 unit/mL Insulin Pen
10 unit SC AC Qty: 5 0RF
Patient Comments:
12 units before meal if glucose over 150
insulin glargine [Lantus Solostar U-100 Insulin] 100 unit/mL (3 mL) Insulin Pen
8 unit SC HS Qty: 5 0RF
Discontinued
amiodarone 200 mg tablet
200 mg PO DAILY Qty: 30 0RF
metoprolol succinate 25 mg tablet extended release 24 hr
12.5 mg PO QPM
Hold Instructions: until Bp>140/90
amlodipine 10 mg tablet
10 mg PO QPM
vancomycin 125 mg capsule
125 mg PO DIRECTED Qty: 90 0RF
Patient Comments:
11/11/2023, start taking one capsule every 3 days for 1 week
sodium bicarbonate 650 mg Tablet
650 mg PO TID Qty: 90 0RF
Discharge Orders:
Discharge Patient (As Directed); Ordered 11/21/23
Ordered By: Ryan Miles
Discharge Date and Time
Discharge Date/Time: 11/21/23 16:19
Print Language: CROATIAN
--- NOTE | 2023-11-21 12:31 | PTCARENOTE ---
Recd pt this AM. PT will be transferred to SNF/Rehab at [facility] today. RN retrieved pt's own med Anauarra from pharmacy and returned to pt. Placed in his own bag to take with him. Annemarie Moise witnessed pt did receive this med and
requested it be placed in his bag. Pt is stable for dc. on 2L NC
--- NOTE | 2023-11-21 12:52 | CM ---
Patient with Dx Acute on chronic hypoxic respiratory failure, HF, anemia, thrombocytopenia. O2 2L. BiPAP HS. PT & OT recommend skilled rehab.
Met with patient and spoke with on speaker phone; both agree to d/c today to [facility] by ambulance. IMM completed. Patient was provided with [facility] Schedule Letter (patient's final schedule is MWF 11:20am).
Spoke with Brenna, [facility]; provided update in [facility] with Nephrology note stating ESRD Dx, therefore cleared by [facility] and able to accept today. Brenna aware patient will need BiPAP- she will order and it will arrive at SNF
today. Brenna also made aware patient has his own supply of Ojjaara (momelotinib) in his belongings that will be sent with him, and that he is not currently taking this while here. The ph for report [phone], fax [phone].
Phone call to [facility] [employer]; left message notifying him of d/c today to [facility], with unknown d/c date to home with start of [facility].
Plan [facility] today by ambulance.
--- NOTE | 2023-11-21 16:17 | PTCARENOTE ---
Report given to Snow ENAMORADO at [facility]. Pt d.c. with all belongings from room. Pt confirmed receipt of all belongings prior to d.c.
== END 2023-11-21 16:19 | DRG 196 ==
LOC: IMU 02:59
PROVIDERS: Hospitalist; Internal Medicine Cardiovascular Disease; Nurse Practitioner; Nurse Practitioner Family; Radiology Vascular & Interventional Radiology; Student in an Organized Health Care Education/Training Program; ADMITTING PHYSICIAN Internal Medicine; ATTENDING PHYSICIAN Internal Medicine; EMERGENCY PHYSICIAN Student in an Organized Health Care Education/Training Program; FAMILY PHYSICIAN Family Medicine; OTHER PHYSICIAN Internal Medicine Cardiovascular Disease; OTHER PHYSICIAN Internal Medicine Critical Care Medicine; OTHER PHYSICIAN Specialist
PROC: 30233N1 Transfusion of Nonautologous Red Blood Cells into Peripheral Vein, Percutaneous Approach (ICD-10-PCS; 2023-11-11)
PROC: 5A09357 Assistance with Respiratory Ventilation, Less than 24 Consecutive Hours, Continuous Positive Airway Pressure (ICD-10-PCS; 2023-11-13)
PROC: 02HV33Z Insertion of Infusion Device into Superior Vena Cava, Percutaneous Approach (ICD-10-PCS; 2023-11-15)
PROC: 0JH60XZ Insertion of Tunneled Vascular Access Device into Chest Subcutaneous Tissue and Fascia, Open Approach (ICD-10-PCS; 2023-11-15)
PROC: 5A1D70Z Performance of Urinary Filtration, Intermittent, Less than 6 Hours Per Day (ICD-10-PCS; 2023-11-15)
DX: J84.89 Other specified interstitial pulmonary diseases (principal); I50.23 Acute on chronic systolic (congestive) heart failure; L89.153 Pressure ulcer of sacral region, stage 3; J96.01 Acute respiratory failure with hypoxia; N18.6 End stage renal disease; I13.2 Hypertensive heart and chronic kidney disease with heart failure and with stage 5 chronic kidney disease, or end stage renal disease; C91.10 Chronic lymphocytic leukemia of B-cell type not having achieved remission; D47.1 Chronic myeloproliferative disease; E87.20 Acidosis, unspecified; D80.3 Selective deficiency of immunoglobulin G [IgG] subclasses; N17.9 Acute kidney failure, unspecified; E87.1 Hypo-osmolality and hyponatremia; R79.1 Abnormal coagulation profile; D69.6 Thrombocytopenia, unspecified; E11.649 Type 2 diabetes mellitus with hypoglycemia without coma; D63.1 Anemia in chronic kidney disease; J47.9 Bronchiectasis, uncomplicated; I48.0 Paroxysmal atrial fibrillation; E11.22 Type 2 diabetes mellitus with diabetic chronic kidney disease; G47.33 Obstructive sleep apnea (adult) (pediatric); E78.00 Pure hypercholesterolemia, unspecified; D47.2 Monoclonal gammopathy; I25.5 Ischemic cardiomyopathy; I25.10 Atherosclerotic heart disease of native coronary artery without angina pectoris; N40.0 Benign prostatic hyperplasia without lower urinary tract symptoms; M10.9 Gout, unspecified; Z86.19 Personal history of other infectious and parasitic diseases; Z99.2 Dependence on renal dialysis; Z87.891 Personal history of nicotine dependence; Z87.01 Personal history of pneumonia (recurrent); Z95.5 Presence of coronary angioplasty implant and graft; Z79.01 Long term (current) use of anticoagulants; Z79.4 Long term (current) use of insulin; Z79.82 Long term (current) use of aspirin; Z79.52 Long term (current) use of systemic steroids
CPT/HCPCS: 36558; 36598; 71045; 71250; 76937; 77001; 80048; 80053; 82962; 83036; 83605; 83735; 83880; 84100; 84145; 84484; 85014; 85018; 85025; 85027; 85610; 86704; 86706; 86803; 86850; 86900; 86901; 86920; 86922; 87040; 87340; 92526; 92610; 93005; 94640; 94660; 94669; 96365; 96367; 97110; 97116; 97163; 97167; 97530; 97535; 99152; 99153; 99291; C1750; C1769; P9047; P9058; Q5106

== ENCOUNTER 2023-11-24 17:29 | Inpatient (IN) | payer MEDICARE, SELFPAY ==
[2023-11-24] VITALS (61 sets, daily range): BP systolic 59–121; BP diastolic 29–67; PULSE 2
--- NOTE | 2023-11-24 15:29 | ED.GENMED ---
History of Present Illness
General
Chief Complaint: Breathing Problem
Source: patient, records, spouse and ambulance crew
Exam Limitations: none
Time Seen by Provider: 11/24/23 15:20
History of Present Illness
History of Present Illness:
83-year-old male presents with department from retirement. He was respiratory, and recent hospital discharge hospitalization for 1 month due to respiratory failure, hospital-acquired pneumonia versus interstitial pneumonitis.
Past History
Past History
ED Past Medical History: Arrthythmia (Atrial fibrillation), CAD, Cancer (CLL ( Lymphocytic Leukemia)), COPD, HTN, Hypercholesterolemia, NIDDM, [place], Renal failure and Other (Anemia, PNA, Hernia, Bleeding gums, PNA)
ED Past Surgical History: Cardiac (Stents X2)
Social History
Tobacco: Former smoker
Alcohol: None
Drug: None
Personal:
Living: with family
Employment: Not employed
Family History
Family History: CAD
Review of Systems
Review of Systems
Allergies reviewed?: Yes
All Other Systems: Not applicable
Constitutional: Reports fever
EENT: Reports no symptoms
Respiratory: Reports cough and trouble breathing
Cardiac: Reports no symptoms
Phy Exam
Physical Exam
Physical Exam:
Physical Exam
General: Fever 102 blood pressure 90/40, severe respiratory distress, ill-appearing
Neck: supple. no meningeal signs. normal posterior pharynx
Heart: s1/s2 regular rate and rhythm, no murmur. equal radial
pulses. Dialysis catheter right chest
HEENT: Pupils equal round reactive to light, EOMI
Lungs: Severe respiratory distress. Crackles bilaterally on BiPAP
Abdomen: normal bowel sounds. not tender. no CVAT
Neuro: alert and oriented. no focal neurological deficits cranial nerves II through XII intact
Skin: no rash
Psychiatric: well kept. interactive and cooperative
Extremities: no edema. no calf tenderness. negative homans. good distal pulses
Scores
Heart Failure Risk
Heart Failure Risk Score: Not Applicable
Course
Orders/Labs/Results
Orders:
Orders
11/24/23 15:14
Electrocardiogram (*1) Urgent
Reason for Study: Shortness of Breath
11/24/23 15:17
EKG- Treatment ONCE
11/24/23 15:18
Complete Blood Count/With Diff Urgent
Comprehensive Metabolic Panel Urgent
Manual Differential Urgent
11/24/23 15:21
Electrocardiogram (*1) Stat
Reason for Study: Other
Other Reason for Exam: pneumonia
Cardiac Monitoring- Treatment ONCE
EKG- Treatment ONCE
Bipap [RESP] Urgent
Patient to use own unit?: No
Inspiratory Pressure (cm H2O): 16
Expiratory Pressure (cm H2O): 8
Oxygen Liter Flow: 15
Pulse Ox/cont/shift [RESP] Stat
Quantity: 1
11/24/23 15:22
CR Chest Portable - 1 View Urgent
Comment:
Reason For Exam: respiratory distress
Reason Study Needs to be Portable: Patient Unstable
11/24/23 15:34
Lactic Acid Q4H
Comment: CANCEL 2nd LACTIC ACID IF 1st LACTIC ACID IS LESS THAN 2
Blood Culture Q30M
GERALD Source: Blood/Venous
Specimen Description:
Blood Culture Q30M
GERALD Source: Blood/Venous
Specimen Description:
11/24/23 15:39
Cefepime HCl [Maxipime] 2,000 mg IV NOW STA
Vancomycin 1 Gram/200 ml [Vancocin] 1 gram in 200 ml IV NOW
11/24/23 16:40
COVID-19 Antigen Urgent
Source: Nasal Swab
Influenza A+B Rapid Molecular Urgent
GERALD Source: Nasal Swab
Specimen Description:
11/24/23 16:41
Dexamethasone Sod Phosphate [Decadron] 10 mg IV NOW STA
11/24/23 17:07
Food Service Worker Consult Stat
Consulting Provider: Luis De La Garza
Was physician already notified: Yes
11/24/23 17:08
ABG [Arterial Blood Gas] Stat
%Oxygen/Room Air: bipap
11/24/23 17:09
NEPHROLOGY CONSULT Urgent
Consulting Provider: Frances Coy
Was physician already notified: Yes
PT/INR [Prothrombin Time] Urgent
11/24/23 17:10
MetroNIDAZOLE 500 MG/100 ML [Flagyl 500 mg] 100 ml IV Q8H
11/24/23 17:12
Admit/Transfer Patient As Directed
Co-Sign Provider:
Level of Care: Inpatient admission
Assign to:: ICU
Physician / Group: alec baeza
Diagnosis: Acute hypoxic respiratory failure, ESRD on hemodialysis
Reason for Hospitalization: Acute hypoxic respiratory failure, ESRD on hemodialysis
Expected length of stay greater than two midnights?: Yes
ELOS- Estimated Length of Stay in days: 3
I certify the patient meets the requirements for IP care: Yes
Legionella Urinary Antigen Urgent
GERALD Source: Urine
Specimen Description:
Strep pneumoniae Antigen Urgent
GERALD Source: Urine
Specimen Description:
Etomidate [Amidate 20 mg] 30 mg IV NOW STA
11/24/23 17:13
Propofol 1,000,000 Mcg/100 ml [Diprivan] 1,000,000 mcg in 100 ml .ROUTE .STK-MED
Propofol [Diprivan] 20 ml .ROUTE .STK-MED
11/24/23 17:14
Code Status As Directed
Resuscitation Status: Full Code
11/24/23 17:18
Ipratropium/Albuterol Sulfate [Duoneb] 3 ml INH R Q4HPRN PRN
11/24/23 17:19
Dextrose 50%-Water [Dextrose 50% Syringe] 12.5 grams IV [id number] PRN
Glucagon [GlucaGen] 1 mg IM PRN PRN
11/24/23 17:20
Bedside Glucose Monitoring As Directed
Frequency: AC&HS
Additional Instructions:: Change to q6h if pt on TPN, tube feeding or not eating
11/24/23 17:28
Triglycerides Routine
Comment: baseline levels with propofol infusion
Propofol 1,000,000 Mcg/100 ml [Diprivan] 1,000,000 mcg in 100 ml IV NOW
Indication:: Light Sedation
Begin Infusion:: Now
Goal:: RASS 0 to -2
Maximum dose in mcg/kg/min:: 50
Initial dose based on RASS:: Yes
If RASS is:: +1 or pt hemodynamically unstable (SBP < 90mmHg), initiate at 10 mcg/kg/min
If RASS is:: +2, initiate at 20 mcg/kg/min
If RASS is:: greater than or equal to +3, initiate at 30 mcg/kg/min
Titration Instructions:: Titrate by 5-10 mcg/kg/min every 5 minutes until RASS 0 to -2 achieved.
Taper Instructions:: If RASS is at or below goal for 4 consecutive hours decrease infusion by
Taper Instructions:: 5-10 mcg/kg/min every 2 hours to off.
Over-sedation Instructions:: If CPOT 0-2 (at goal) AND RASS -3 to -5 (below goal) decrease sedative by
Over-sedation Instructions:: 50% first. If pain score remains at goal and RASS remains below goal in
Over-sedation Instructions:: 1 hour, decrease opioid infusion by 50%.
Notify provider:: immediately if patient exhibits signs/symptoms of propofol-related
Notify provider:: infusion syndrome.
Additional Instructions:: Patient MUST be mechanically ventilated and MUST receive analgesia.
11/24/23 18:00
VANCOMYCIN Pharmacy to Dose [VANCOCIN Pharmacy to Dose] 1 each Pharmacy To Prepare [Call Pharmacy To Prepare] 0 ml IV PER PROTOCOL
11/24/23 19:30
Lactic Acid Q4H
Comment: CANCEL 2nd LACTIC ACID IF 1st LACTIC ACID IS LESS THAN 2
11/24/23 23:45
Cefepime HCl [Maxipime] 2,000 mg IV Q8H
11/25/23 07:30
Insulin Aspart Corrective Low [Novolog Flexpen-Low Resistance] See Protocol SC AC
Abnormal Lab Results
11/24/23 11/24/23
15:18 15:34
WBC 14.4 H 10^3/uL
(4.8-10.8)
RBC 3.27 L 10^6/uL
(4.70-6.10)
Hgb 9.5 L g/dL
(13.0-18.0)
Hct 29.2 L %
(39.0-52.0)
MCHC 32.5 L g/dL
(33.0-37.0)
RDW 19.0 H %
(11.5-14.5)
MPV 10.8 H fL
(7.4-10.4)
Abs Neuts (Manual) 13.9 H 10^3/uL
(1.4-6.5)
Segmented Neutrophils 87 H %
(42-75)
Band Neutrophils 10 H %
(0-3)
Lymphocytes (Manual) 1 L %
(20-51)
Sodium 131 L mmol/L
(135-145)
Carbon Dioxide 17 L mmol/L
(22-30)
BUN 95 H mg/dl
(9-20)
Creatinine 5.3 H* mg/dL
(0.7-1.3)
Lactic Acid 2.6 H mmol/L
(0.7-2.0)
Calcium 7.1 L mg/dl
(8.4-10.2)
Total Protein 4.7 L g/dl
(6.3-8.2)
Albumin 2.7 L g/dl
(3.5-5.0)
11/24/23 15:18
11/24/23 15:18
Vital Signs
Initial and Last Documented VS:
Initial Vital Signs
Temp Pulse Resp BP Pulse Ox
102.3 F H 94 24 95/40 88
11/24/23 15:07 11/24/23 15:07 11/24/23 15:07 11/24/23 15:07 11/24/23 15:07
Last Documented Vital Signs
Temp Pulse Resp BP Pulse Ox
102.3 F H 94 24 95/40 88
11/24/23 15:07 11/24/23 15:07 11/24/23 15:07 11/24/23 15:07 11/24/23 15:07
Procedures
Intubations
Procedure completed by: Ermias
Method of Intubation: glidescope
Tube size (cm): 8.0
Placement confirmed by: CXR, capnography and direct visualization
Breath sounds after intubation: equal
Intubation complications: no complications
MDM/Problems Addressed
Differential Diagnosis Includes:
Pneumonia, respiratory failure, renal failure, CHF
MDM/Problems Addressed:
83-year-old male with pneumonia, renal failure, respiratory failure. Interstitial lung disease. Intubated. After long discussion with family they request that he be intubated. His oxygen saturation was 79% on BiPAP.
Chronic conditions affecting care: Cardiomyopathy, Arrhythmia, COPD and Kidney disease
Acute Exacerbation and/or Progression of Chronic Illness: Cardiomyopathy, Arrhythmia, COPD and Kidney disease
*Radiology
Radiology exam reviewed: radiology read reviewed (Chest x-ray shows pneumonia)
*Pulse Oximetry
Patient hypoxic: yes
*EKG
Interpreted by ED Provider?: Yes
EKG Intrepretation Date: 11/24/23
EKG Intrepretation Time: 15:40
Interpretation: normal
Comparison EKG: changes noted
Heart Rate: 93
Rate: normal
Rhythm: sinus
[place]: normal axis
Interval: normal interval
QRS Pattern: right bundle branch block
Ischemia: no ischemia
*Ball Assembler Interpretation
Rate: normal
Interpretation: normal
Heart Rate: 93
Rhythm: sinus
*Critical Care Note
Total Time (30-74mins, 75-104mins- exclusive of procedures): 35
Data Reviewed
Review of Other/Old Records Reveals: Progress Notes (Seen by pulmonary, renal, recently started on dialysis. Had severe respiratory distress)
Source: records
Patient Management
Social determinants of health affecting care: Living situation
Discussion with other providers: Hospitalist
Escalation/DeEscalation of care consider admission/obs:
admit indicated
ED Attending Note
-
Portions of this chart may have been created with voice recognition software.� Occasional wrong word or��sound alike� substitutions may have occurred due to the inherent limitations of voice recognition software.
Discharge Plan
Departure
Patient Disposition: Admit
Date of Disposition: 11/24/23
Time of Disposition: 16:15
Admit to: ICU
Presentation/result/management discussed w/ accepting MD/DO: Hospitalist
Patient with high blood pressure during this ER visit?: No
Condition: Fair
Discharge Problem:
Acute hypoxic respiratory failure, Pneumonia, ESRD (end stage renal disease)
[2023-11-24 15:41] LABS: Hematocrit 29.2 % (39.0-52.0); Hemoglobin 9.5 g/dL (13.0-18.0); Mean Corp Hgb Conc. 32.5 g/dL (33.0-37.0); Mean Corpuscular Hgb 29.1 pg (27.0-31.0); Mean Corpuscular Volume 89.3 fL (80.0-94.0); Mean Platelet Volume 10.8 fL (7.4-10.4); Platelet Count 313 10^3/uL (130-400); Red Blood Cell Count 3.27 10^6/uL (4.70-6.10); White Blood Cell Count 14.4 10^3/uL (4.8-10.8)
[2023-11-24] MEDS: MAXIPIME 2000 MG IV (15:45)
[2023-11-24] MEDS: VANCOCIN 200 IV (15:46)
[2023-11-24 15:57] LABS: Lactic Acid 2.6 mmol/L (0.7-2.0)
[2023-11-24 16:00] LABS: Absolute Neutrophils -Man Diff 13.9 10^3/uL (1.4-6.5); Band Neutrophils 10 % (0-3); Lymphocytes 1 % (20-51); Monocytes 2 % (2-9); Platelets Checked Yes; Segmented Neutrophils 87 % (42-75)
[2023-11-24 16:01] LABS: ALT (SGPT) 23 U/L (0-50); AST (SGOT) 22 U/L (17-59); Albumin 2.7 g/dl (3.5-5.0); Alkaline Phosphatase 57 U/L (38-126); Blood Urea Nitrogen 95 mg/dl (9-20); Calcium 7.1 mg/dl (8.4-10.2); Carbon Dioxide 17 mmol/L (22-30); Chloride 100 mmol/L (98-107); Glucose 71 mg/dl (70-99); Normal RBC Morphology Yes; Potassium 4.3 mmol/L (3.5-5.1); Sodium 131 mmol/L (135-145); Total Bilirubin 1.1 mg/dl (0.2-1.3); Total Cells Counted 100; Total Protein 4.7 g/dl (6.3-8.2); eGFR 10.16
--- NOTE | 2023-11-24 16:34 | PHANOTE ---
med rec note- spoke to Pauline. as per residential patient d/c on 11/21/23 from [facility] to [facility] on warfarin 5mg qpm for 2 days then retested on 11/23/23 but residential has not gotten then inr back as of 11/24/23, also residential stated
patient has not received full dialysis on Saturday11/22/23, they sated he only got 30 minutes on treatment. residential also informed me patient has been refusing to wear his breathing machine at night.
[2023-11-24] MEDS: DECADRON 10 MG IV (16:46)
[2023-11-24 17:02] LABS: COVID-19 Antigen Negative (Negative)
--- NOTE | 2023-11-24 17:19 | HPS.HSE ---
Family Physician
-
Family Physician: Rob Santos
Chief Complaint
-
Shortness of breath, respiratory distress
History of Present Illness
83-year-old male with past medical history of atrial fibrillation, CAD, CLL, COPD, ILD, hypertension, hyperlipidemia, ike-cqjhfuy-lwyahgyvk diabetes mellitus, [place], ESRD on hemodialysis, MGUS, myelofibrosis, CAD, BPH, coccyx/perineal ulcer came to the
hospital with acute hypoxic respiratory failure and respiratory distress. Per spouse at bedside, patient did not get full session of dialysis yesterday. Patient was placed on BiPAP in the ED however still continue to develop respiratory distress.
Due to patient having respiratory distress and significant hypoxia on BiPAP, decision was made to intubate him. Did discuss CODE STATUS prior to intubation and patient nodded his head that he is okay with intubation. Family is aware of patient
declining clinical status.
Medical History
Past Medical History
Past Medical History: Reports Arrhythmia (Prx A Fib ), CAD, CHF, CVA (TIS ), HTN, IDDM and Other (CKD4 )
Past Surgical History: Reports Cardiac (stents )
Social History
Tobacco: Former Smoker
Alcohol: None
Drug: None
Personal:
Living: With Family
Family History
Family History: Not pertinent
Allergies / Home Medications
Allergies reflects when Allergies were last updated in [employer].
Home Medications with original date entered in [employer]
Allergy/Medication List:
Allergies
Allergy/AdvReac Type Severity Reaction Status Date / Time
atorvastatin Allergy ? M-S pain Verified 11/11/23 00:38
immune globulin,gamma (IgG) Allergy Anaphylaxis Verified 11/11/23 00:38
human
prednisone Allergy Unknown Verified 11/11/23 00:38
Home Medications
rosuvastatin 5 mg tablet 5 mg PO QPM High Cholesterol 07/09/19
febuxostat 40 mg tablet 40 mg PO DAILY uric acid 04/29/23
ferrous sulfate 325 mg (65 mg iron) tablet 325 mg PO QPM Supplement ##0 04/29/23
finasteride 5 mg tablet 5 mg PO QPM BPH 04/29/23
nitroglycerin 0.6 mg/hr transdermal 24 hour patch (Nitro-Dur) 1 patch transdermal DAILY Heart Disease/Condition ##0 04/29/23
amiodarone 200 mg tablet 200 mg PO DAILY #30 tabs 06/13/23
aspirin 81 mg tablet,delayed release 81 mg PO DAILY Blood Clot Prevention/Tx 06/20/23
metoprolol succinate 25 mg tablet,extended release 24 hr 12.5 mg PO QPM Heart Disease/Condition 06/20/23
guaifenesin 600 mg tablet, extended release 12 hr 600 mg PO BID Neurological Condition 09/01/23
Aranesp 1 dose SC Q3W anemia 09/23/23
amlodipine 10 mg tablet 10 mg PO QPM Blood Pressure 09/23/23
budesonide 0.5 mg/2 mL suspension for nebulization 0.5 mg inhalation R BIDPRN PRN sob 09/23/23
vancomycin 125 mg capsule 125 mg PO DIRECTED #90 caps 09/26/23
sodium bicarbonate 650 mg tablet 650 mg PO TID #90 tabs 09/27/23
acetaminophen 500 mg tablet (Tylenol Extra Strength) 500 mg PO DAILYPRN PRN mild pain 10/24/23
carboxymethylcellulose sodium 1 % eye liquid gel drops 1 drp BOTH EYES DAILYPRN PRN dry eyes 10/24/23
momelotinib 200 mg tablet (Ojjaara) 200 mg PO BID Myelofibrosis 10/24/23
insulin glargine 100 unit/mL (3 mL) subcutaneous pen (Lantus Solostar U-100 Insulin) 15 unit (0.15 mL) SC HS #5 ea 11/06/23
insulin lispro 100 unit/mL subcutaneous pen (Humalog KwikPen (U-100) Insulin) 12 unit (0.12 mL) SC AC #5 ea 11/06/23
warfarin 2 mg tablet (Jantoven) 2 mg PO QPM 30 days #30 tabs 11/06/23
dapagliflozin propanediol 5 mg tablet (Farxiga) 5 mg PO DAILY 11/11/23
dexamethasone 1 mg tablet 1 mg PO DAILY 11/11/23
ipratropium 0.5 mg-albuterol 3 mg (2.5 mg base)/3 mL nebulization soln 3 ml inhalation DAILYPRN PRN sob 11/11/23
Review of Systems
-
History Source: Patient
A 12 point ROS was completed and negative except as noted: Yes
Respiratory: Reports Trouble Breathing
Physical Exam
Vital Signs
Vital Signs
Temp Pulse Resp BP Pulse Ox
102.3 F H 94 24 95/40 88
11/24/23 15:07 11/24/23 15:07 11/24/23 15:07 11/24/23 15:07 11/24/23 15:07
Physical Exam
General: Respiratory Distress and Appears in Distress
HEENT: Anicteric and Moist mucous membranes
Respiratory: Crackles and Accessory Resp Muscle Use
Cardiac: S1/S2 and Regular Rhythm
Breast: Deferred by me
GI: Soft and Non Tender
Genito-urinary: No Crespo
Musculoskeletal: No Edema
Neuro: Awake and Alert
Psych: Anxious
Laboratory Results
-
11/24/23 15:18
11/24/23 15:18
Laboratory Results
Lactic Acid 2.6 mmol/L (0.7-2.0) H 11/24/23 15:34
Total Bilirubin 1.1 mg/dl (0.2-1.3) 11/24/23 15:18
AST 22 U/L (17-59) 11/24/23 15:18
ALT 23 U/L (0-50) 11/24/23 15:18
Alkaline Phosphatase 57 U/L (38-126) 11/24/23 15:18
Data Reviewed
-
Diagnostic Radiology: Report Reviewed by me, Discussed with Patient and Discussed with Family
Lab Data: Labs Reviewed by me, Discussed with Patient and Discussed with Family
Impression/Plan
-
Acute hypoxic respiratory failure likely multifactorial due to pneumonia/pneumonitis, acute on chronic CHF, ESRD on hemodialysis, worsening interstitial lung disease. Patient does have underlying ABELARDO, COPD.
Was placed on BiPAP however sats were still in 70s with significant tachypnea
Now intubated in ED; Vent management per ICU
cw sedation;wean as tolerated
Spinal Surgeon consulted
Continue with empiric antibiotics
COVID-negative. Flu pending. Check Legionella, strep
Severe sepsis secondary to pneumonitis/pneumonia
Continue with empiric antibiotics
Follow fever curve
Blood culture pending
if hypotensive post intubation then start pressors
Lactic acidosis
Trend
Acute on chronic CHF with reduced EF
Currently hypotensive after intubation, if blood pressure comes up then can try diuresis until get HD.
ESRD now on hemodialysis
Nephrology consulted
Per family not a full session dialysis past Saturday
HD MWF
Chronic anemia, baseline hemoglobin 8-9
Continue to monitor
Gets Aranesp q3 weeks by Dr Alexis
Paroxysmal atrial fibrillation
On Coumadin
Check INR
CLL/MGUS/myelofibrosis -was on Momelotinib
CAD -stable.
COPD without exacerbation
DM2
ISS, Accu-Cheks
ABELARDO
Essential hypertension - hold BP meds at this time due to hypotension
History of C. difficile
P.o. Vanco while on empiric antibiotic
Hyperlipidemia
History of CDAD -completed vancomycin taper.
BPH
Full-thickness coccyx/perineal ulcer, likely healing PI stage 3
Full code; this was discussed with patient and family at bedside prior to intubation
Total Critical Care Time_58____ minutes. I was immediately available to the patient and staff. I personally examined, reviewed labs, diagnostic images/reports, interpretations, treatment plans, discussed patient care with other providers and
family or caregivers (if patient is unable to make decisions), entered orders as appropriate and documented the medical record.
[2023-11-24] MEDS: DIPRIVAN 100 IV (17:47)
[2023-11-24] MEDS: LEVOPHED 250 IV ×2 (17:49→22:25)
[2023-11-24] MEDS: NSS 500 IV (17:50)
--- NOTE | 2023-11-24 18:22 | PHA.VAN.IN ---
Assessment
- Assessment
Renal Function: Patient has ESRD, on chronic Hemodialysis
Hemodialysis Schedule: MWF
Concomitant Antimicrobials: cefepime, metronidazole
Plan
- Plan
Initial / Loading Dose: 1500mg - 11/23 (1g 15:46 PLUS 500mg - administration pending)
Maintenance Regimen: dosing by level
Monitoring: random 11/24 0600
MRSA Screen: Ordered per protocol
Pharmacokinetics Vancomycin I
- -
Patient Age: 83
Patient Sex: Male
Vancomycin Day #: 1
Indication: Pulmonary/Respiratory
Requesting Provider: Dr. Miles
Pertinent Antimicrobial Allergies:
no pertinent antibiotic allergies
Height / Weight:
Height 5 ft 10 in
Actual Weight 64.9 kg
Pertinent Past Medical History: ESRD on HD MWF, CLL, DM2
- Vital Signs / Lab Results
Temp Pulse Resp BP Pulse Ox
102.3 F H 94 24 95/40 88
11/24/23 15:07 11/24/23 15:07 11/24/23 15:07 11/24/23 15:07 11/24/23 15:07
Lab Results - Hematology
11/24/23
15:18
WBC 14.4 H
Band Neutrophils 10 H
Lab Results - Chemistry
11/24/23
15:18
BUN 95 H
Creatinine 5.3 H*
Albumin 2.7 L
11/24/23
15:34
Lactic Acid 2.6 H
Microbiology Results
11/24/23 16:40 Influenza Types A & B (YOBANY) - Final
Nasal Swab Negative for Influenza A & B, NAAT
Negative results must be combined with clinical observations
and patient history.
Nucleic Acid Amplification test (NAAT)performed on the
[employer] platform.
[2023-11-24] MEDS: TYLENOL/FEVERALL 325 MG RECTAL (18:37)
--- NOTE | 2023-11-24 18:39 | EDRN ---
Pt intubated by Dr. Monson with respiratory at the bedside starting at 1722 due to pt unable to tolerate bipap satting at 78%. 30 mg of etomidate given at 1722, 60 mg of rocuronium at 1723. Tube is 24 cm at the lip with bilateral breath sounds. Pt
BP 56/37, levo ordered by Ermias.
[2023-11-24 19:27] LABS: INR 2.17; PT 24.1 Sec (11.4-14.6)
[2023-11-24 19:32] LABS: Triglycerides 382 mg/dl (10-149)
--- NOTE | 2023-11-24 20:12 | W.PN.SEPSIS ---
Sepsis
Vital Signs
Temp Pulse Resp BP Pulse Ox
102.4 F H 83 16 92/36 93
11/24/23 20:04 11/24/23 20:00 11/24/23 20:00 11/24/23 19:52 11/24/23 20:08
Physical Exam
Physical Exam:
A focused exam was performed after fluid resuscitation.
Capillary Refill
Bilateral Upper Extremity:
Angie Time: Less than 3 sec
Bilateral Lower Extremity:
Angie Time: Less than 3 sec
Pulse Evaluation
Bilateral Radial:
Pulse Evaluation: Present
Bilateral Dorsalis Pedis:
Pulse Evaluation: Present
[2023-11-24 20:20] LABS: APTT 26.9 Sec (23.4-35.0)
[2023-11-24] MEDS: PULMICORT 0.5 MG INH (20:43)
[2023-11-24] MEDS: DUONEB 3 ML INH (20:43)
--- NOTE | 2023-11-24 20:58 | CON.INTV ---
Consultation
Consultation Request
Date/Time Consultation Requested: 11-24-23
Date/Time Consultation Performed: 11-24-23
Requesting Provider: Hospitalist Summer
Performing Provider: Dr De La Garza
Reason for Consultation: respiratory failure
Medical History
-
Chief Complaint: dyspnea
History of Present Illness:
Mr Enrique Matthews is an 83/M readm 11-23 with multiple comorbidities including COPD with new onset O2 use since one week prior to readm (adm 11-10 to : AECHF, AECOPD).
Doing relatively well at [facility] after recent d/c, spoke to him over the phone on DOA and he sounded resp marte stable.
Recently started on new onset HD during last adm, due to MWF sessions, patient requested to stop HD session after 30 min on 11-21 as he had to use the bathroom.
visited patient at [facility] and found him dyspneic and lethargic, found hypoxemic on O2 3L, reports no explanation or timing of clinical changed occurred.
Returned to by EMS, dyspneic, hypoxemia persisted in spite of BPAP application, GOC discussed at ER and patient nodded agreement with intubation and was supported on that decision by family at bedside
Multiple comorbidities noted
Seen at ER, already on MV, and daughter at bedside
Past Medical History
Past Medical History: Other (see A&P for PMH/PSH)
Social History
Tobacco: Former Smoker
Alcohol: None
Drug: None
Personal:
Living: Senior [facility]
Employment: Retired
Family History
Family History: CAD (M) and Diabetes (paternal GF)
Allergies / Home Medications
Allergies
Allergy/AdvReac Type Severity Reaction Status Date / Time
atorvastatin Allergy ? M-S pain Verified 11/24/23 15:07
immune globulin,gamma (IgG) Allergy Anaphylaxis Verified 11/24/23 15:07
human
prednisone Allergy SEE BELOW Verified 11/24/23 15:07
Home Medications
�Medication �Instructions �Recorded �Confirmed �Last Taken �Type
rosuvastatin 5 mg tablet 5 mg PO QPM High Cholesterol 07/09/19 11/24/23 10/23/23 History
febuxostat 40 mg tablet 40 mg PO DAILY uric acid 04/29/23 11/24/23 10/24/23 History
ferrous sulfate 325 mg (65 mg 325 mg PO QPM Supplement ##0 04/29/23 11/24/23 10/23/23 History
iron) tablet
finasteride 5 mg tablet 5 mg PO QPM BPH 04/29/23 11/24/23 10/23/23 History
nitroglycerin 0.6 mg/hr 1 patch transdermal DAILY Heart 04/29/23 11/24/23 10/24/23 History
transdermal 24 hour patch Disease/Condition ##0
(Nitro-Dur)
aspirin 81 mg tablet,delayed 81 mg PO DAILY Blood Clot 06/20/23 11/24/23 10/24/23 History
release Prevention/Tx
guaifenesin 600 mg tablet, 600 mg PO BID Neurological 09/01/23 11/24/23 10/24/23 History
extended release 12 hr Condition
acetaminophen 500 mg tablet 500 mg PO DAILYPRN PRN mild pain 10/24/23 11/24/23 Unknown History
(Tylenol Extra Strength)
carboxymethylcellulose sodium 1 % 1 drp BOTH EYES DAILYPRN PRN dry 10/24/23 11/24/23 Unknown History
eye liquid gel drops eyes
momelotinib 200 mg tablet (Ojjaara) 200 mg PO BID Myelofibrosis 10/24/23 11/24/23 10/23/23 History
dapagliflozin propanediol 5 mg 5 mg PO DAILY Heart 11/11/23 11/24/23 Unknown History
tablet (Farxiga) Disease/Condition
ipratropium 0.5 mg-albuterol 3 mg 3 ml inhalation DAILYPRN PRN sob 11/11/23 11/24/23 Unknown History
(2.5 mg base)/3 mL nebulization
soln
budesonide 0.5 mg/2 mL suspension 0.5 mg (2 mL) inhalation R BID sob 11/21/23 11/24/23 Unknown Rx
for nebulization #0 mL
dexamethasone 1 mg tablet 3 mg (3 x 1 mg) PO DAILY 11/21/23 11/24/23 Unknown Rx
Anti-Inflammatory #0 tabs
insulin glargine 100 unit/mL (3 8 unit (0.08 mL) SC HS #5 ea 11/21/23 11/24/23 Unknown Rx
mL) subcutaneous pen (Lantus
Solostar U-100 Insulin)
insulin lispro 100 unit/mL 10 unit (0.1 mL) SC AC #5 ea 11/21/23 11/24/23 Unknown Rx
subcutaneous pen (Humalog KwikPen
(U-100) Insulin)
ipratropium 0.5 mg-albuterol 3 mg 3 ml inhalation R BID #0 mL 11/21/23 11/24/23 Unknown Rx
(2.5 mg base)/3 mL nebulization
soln
metoprolol succinate 25 mg 12.5 mg (1/2 x 25 mg) PO BID #0 11/21/23 11/24/23 Unknown Rx
tablet,extended release 24 hr tabs
acetaminophen 325 mg tablet 650 mg PO Q6HPRN PRN mild pain 11/24/23 11/24/23 Unknown History
(Tylenol)
amiodarone 200 mg tablet (Pacerone) 200 mg PO BID 11/24/23 11/24/23 Unknown History
bisacodyl 10 mg rectal suppository 10 mg PA DAILYPRN PRN if no bm 11/24/23 11/24/23 Unknown History
(Dulcolax (bisacodyl)) aftr mom
magnesium hydroxide 400 mg/5 mL 2,400 mg PO [id number] PRN if no bm 11/24/23 11/24/23 Unknown History
oral suspension (Milk of Magnesia) by 3rd day
warfarin 5 mg tablet 5 mg PO .QPMX2D 06/23/24 06/23/24 Unknown History
Review of Systems
-
Unable to Obtain full review of systems at this time due to: Patient Intubation
Vitals / Labs / Diagnostic Testing
Vital Signs
Temp Pulse Resp BP Pulse Ox
102.4 F H 81 20 92/36 91
11/24/23 20:04 11/24/23 20:51 11/24/23 20:51 11/24/23 19:52 11/24/23 20:51
Lab Data
11/24/23 15:18
11/24/23 15:18
Laboratory Results
11/24/23
19:11
PT 24.1 H
INR 2.17
APTT 26.9
Microbiology
11/24/23 16:40 Nasal Swab Influenza Types A & B (YOBANY) - Final
Negative for Influenza A & B, NAAT
Negative results must be combined with clinical observations
and patient history.
Nucleic Acid Amplification test (NAAT)performed on the
[employer] platform.
Diagnostic Testing:
Physical Exam
-
HEENT: Normocephalic and Other (LEXY#8, 25 cm at lip)
Cardiovascular: Regular Rhythm, Murmur (n), Peripheral Edema (trace KATRIN), JVD (n) and Other (R chest tunnelized HD cath)
Respiratory: Clear and Non-Labored Respirations
GI: Soft and Non Distended
Neurology: Other (sedated)
Skin: Warm
General: Respiratory Distress (n)
Assessment
-
Assessment:
Mr Enrique Matthews is an 83/M readm 11-23 with multiple comorbidities including COPD with new onset O2 use since one week prior to readm (adm [facility] 11-10 to 20: AECHF, AECOPD). Doing relatively well at [facility] after recent d/c, spoke to him over the phone
on DOA and he sounded resp marte stable. Recently started on new onset HD during last adm, due to MWF sessions, patient requested to stop HD session after 30 min on 11-21 as he had to use the bathroom. visited patient at [facility] and found him
dyspneic and lethargic, found hypoxemic on O2 3L, reports no explanation or timing of clinical changed occurred. Returned to by EMS, dyspneic, hypoxemia persisted in spite of BPAP application, GOC discussed at ER and patient nodded agreement with
intubation and was supported on that decision by family at bedside
Impression:
Acute on chronic respiratory failure
Hypoxemia and resp distress did not respond to BPAP
Intubated at ER
Leukocytosis with bandemia
Mild hyponatremia
Mild lactacidemia
COVID/flu negative
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
CLL
Myelofibrosis
A-fib, s/p multiple DCCV, on chronic amiodarone and warfarin
CAD with history of [place] (08/2015) s/p stent to LAD
HFpEF
COPD, new onset O2 at 3L since last adm earlier November 2023. Follows Dr Camara. PFT November 2022 which was negative for an obstructive defect with an FEV1/FVC of 71, TLC 79, vital capacity 90%, RV 61%, and a very severe diffusion capacity (DLCO: 36%).
HTN
HLD
T2DM
CKD, on new onset HD MWF since last adm earlier November 2023
H/o Cdiff
BEs
PV on Agrylin
Mild restrictive lung disease
ABELARDO on auto-BiPAP
Cold agglutinin disease
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
Gout
BPH
Mohs surgery (left middle finger)
Bilateral cataract surgery
Pilonidal cyst excision
Former Smoker (Quit smoking in his 20s)
Plan:
Acute on chronic resp failure
Multifactorial chronic resp failure: COPD, CHF, BE, deconditioning, multiple comorbidities
Continue ACV
16-500-5-1.0 (POx 94%)
Pk pr 26, Pl pr 12
Sedation/analgesia
Continue budesonide
Continue DNs qid/prn
CXR in AM
IVFs
Follow blood cxs
Added trach secs cx
Empiric atbs: vanco, cefepime, metronidazole
Empiric CS to continue: dexam IV. Reportedly allergic to prednisone
Continue amiodarone 200 mg bid
Chronic kidney disease
Patient interrupted HD 11-21 after 30 min of session
Continue HD
Renal consultation
Continue chronic coumadin AC (AFib)
H/o ABELARDO, previously on BPAP 05/07, return to BPAP once extubated
Outpatient follow-up with Dr. Camara
Prognosis guarded due to multiple comorbidities
Currently full code
D/w and daughter at ER
Critical care time: 35 min
D/w IMPLEMENTATION PROJECT MANAGER and ICU MENTAL HEALTH ASSOCIATE
Diagnostic tests:
CXR 11-23 c/w 17: new mild parenchymal and vasc congestion. ETT. R chest tunn HD cath. No free air
TTE 10-25-2023:
Normal left ventricular wall thickness.
Normal left ventricular chamber size.
Mildly reduced left ventricular systolic function.
Left ventricular ejection fraction is 44% by Anaya's method.
Global hypokinesis, more prominent in the mid and basal segments of the anterolateral wall.
Normal right ventricular size and function.
Mitral valve opens normally.
Mild to moderate mitral regurgitation.
Trace to mild aortic regurgitation.
Mild tricuspid regurgitation.
The IVC is of normal size and demonstrates normal respiratory variation.
Normal pericardium without effusion.
No significant change noted from 09/2023
[2023-11-24] MEDS: PITRESSIN 100 IV (20:59)
[2023-11-24] MEDS: FLAGYL 500 MG 100 IV (21:03)
[2023-11-24 21:29] LABS: Lactic Acid 2.9 mmol/L (0.7-2.0)
[2023-11-24 21:36] LABS: Magnesium 2.1 mg/dl (1.6-2.3); Phosphorus 5.8 mg/dl (2.5-4.5)
[2023-11-24] MEDS: VANCOCIN HCL 500 MG 100 IV (21:44)
[2023-11-24 21:52] LABS: B.E. -10.8 mmol/L; O2 Saturation % 96.8 % (94-98); PCO2 53 mmHg (35-48); PO2 86 mmHg (83-108)
[2023-11-24 21:55] LABS: pH 7.14 (7.35-7.45)
[2023-11-24] MEDS: SODIUM BICARBONATE 50 MEQ IV (22:12)
[2023-11-24] MEDS: PROSCAR 5 MG PO (22:18)
[2023-11-24] MEDS: PACERONE 200 MG PO (22:19)
[2023-11-24] MEDS: FIRVANQ 125 MG PO (22:19)
--- NOTE | 2023-11-24 22:39 | PTCARENOTE ---
Received report from ED RN. Pt. arrived to ICU 3363 ~1999. Intubated #8.0 ETT, 24 center. A/C 16/500/+5/100%. Spo2 93-95%. Lungs coarse with crackles LLL. Suctioned for nothing from ETT. Received pt on 10mcg of propofol- weaned to off and pt.
unresponsive. SUPERVISOR LENS GENERATING Luis Enrique aware. ABG drawn.. results noted and discussed w SUPERVISOR LENS GENERATING. 1 amp bicarb given. B/L wrist restraints in place for safety. SR on tele. HR 80s-90s. Hypotensive- on levophed and vasopressin per orders. Temp 102.4 via rectal probe
upon arrival- now 100.8. Will monitor. Stage 3 wound on sacrum present on admission- dressed. R AC with levo and vaso infusing. Order for PICC placed but no VAT RN to place tonight. R chest wall HD cath dsg c/d/i. Turning q2. Monitoring closely
Family at bedside- questions answered.
[2023-11-24] MEDS: SUBLIMAZE 50 MCG IV (23:11)
[2023-11-24] MEDS: DECADRON 6 MG IV (23:39)
[2023-11-24 23:56] LABS: Glucose - Point of Care 165 mg/dl (70-99)
[2023-11-25] VITALS (72 sets, daily range): BP systolic 46–146; BP diastolic 16–65; BMI 19.8
--- NOTE | 2023-11-25 00:12 | PTCARENOTE ---
Around 2300, pt. more awake, opens eyes to command briefly. Tachypneic and CPOT = 4. PRN fentanyl bolus given. Propofol restarted at 10mcg at 2340. NG tube placed earlier and verified by xray. Connected to LIWS with small amt yellow output.
[2023-11-25] MEDS: SUBLIMAZE 50 MCG IV ×5 (00:48→18:36)
[2023-11-25] MEDS: LEVOPHED 250 IV ×7 (00:52→13:47)
[2023-11-25] MEDS: TYLENOL ORAL SOLUTION 650 MG TUBE (01:27)
[2023-11-25] MEDS: FLAGYL 500 MG IV (01:29)
[2023-11-25] MEDS: NEO-SYNEPHRINE 250 IV ×3 (01:56→15:22)
[2023-11-25] MEDS: ATIVAN 1 MG IV ×2 (02:04→17:22)
[2023-11-25] MEDS: NSS (PRESERVATIVE FREE) 0.5 ML IV ×2 (02:04→17:22)
[2023-11-25 04:03] LABS: Hematocrit 31.7 % (39.0-52.0); Hemoglobin 10.1 g/dL (13.0-18.0); Mean Corp Hgb Conc. 31.9 g/dL (33.0-37.0); Mean Corpuscular Hgb 28.9 pg (27.0-31.0); Mean Corpuscular Volume 90.6 fL (80.0-94.0); Platelet Count 330 10^3/uL (130-400); Red Cell Dist. Width 18.5 % (11.5-14.5); White Blood Cell Count 16.5 10^3/uL (4.8-10.8)
[2023-11-25 04:19] LABS: INR 3.76; PT 37.2 Sec (11.4-14.6)
[2023-11-25 04:21] LABS: Lactic Acid 4.9 mmol/L (0.7-2.0); Vancomycin Random 16.5 ug/ml
[2023-11-25 04:22] LABS: Albumin 2.6 g/dl (3.5-5.0); Alkaline Phosphatase 63 U/L (38-126); Blood Urea Nitrogen 107 mg/dl (9-20); Calcium 6.6 mg/dl (8.4-10.2); Carbon Dioxide 14 mmol/L (22-30); Chloride 94 mmol/L (98-107); Glucose 184 mg/dl (70-99); Potassium 5.3 mmol/L (3.5-5.1); Sodium 129 mmol/L (135-145); Total Bilirubin 2.1 mg/dl (0.2-1.3); Total Protein 4.3 g/dl (6.3-8.2)
[2023-11-25 04:29] LABS: B.E. -13.4 mmol/L; O2 Saturation % 77.9 % (94-98); PCO2 46 mmHg (35-48)
[2023-11-25 04:31] LABS: HCO3 15.3 mmol/L (21-28); PO2 51 mmHg (83-108); pH 7.13 (7.35-7.45)
[2023-11-25 04:38] LABS: ALT (SGPT) 915 U/L (0-50); AST (SGOT) 1462 U/L (17-59); Estimated Creatinine Clearance 8 ml/min; eGFR 8.41
[2023-11-25] MEDS: NOVOLIN R 10 UNITS IV (04:38)
[2023-11-25] MEDS: DEXTROSE 50% SYRINGE 25 GRAMS IV (04:42)
[2023-11-25] MEDS: SODIUM BICARBONATE 50 MEQ IV ×3 (04:43→15:33)
[2023-11-25] MEDS: FLAGYL 500 MG 100 IV (04:45)
[2023-11-25 04:47] LABS: Absolute Neutrophils -Man Diff 15.3 10^3/uL (1.4-6.5); Band Neutrophils 31 % (0-3); Segmented Neutrophils 62 % (42-75)
[2023-11-25 04:48] LABS: Atypical Lymphocytes 1 %; Lymphocytes 4 % (20-51); Metamyelocytes 2 % (-); Normal RBC Morphology No
[2023-11-25 04:50] LABS: Hypochromasia 1+; Ovalocytes 1+; Poikilocytosis 1+; Tear Drop Red Blood Cells 1+; Total Cells Counted 100
[2023-11-25 05:00] LABS: B.E. -14.2 mmol/L; O2 Saturation % 96.7 % (94-98); PCO2 35 mmHg (35-48); PO2 83 mmHg (83-108)
[2023-11-25] MEDS: NOVOLOG FLEXPEN-LOW RESISTANCE 3 UNITS SC (05:00)
[2023-11-25 05:01] LABS: Glucose - Point of Care 274 mg/dl (70-99)
[2023-11-25 05:04] LABS: HCO3 13.1 mmol/L (21-28); pH 7.18 (7.35-7.45)
[2023-11-25 05:13] LABS: Platelets Checked Yes
[2023-11-25] MEDS: CALCIUM GLUCONATE 290 MG IV (05:51)
[2023-11-25] MEDS: FIRVANQ 125 MG PO (05:52)
[2023-11-25] MEDS: PITRESSIN 100 IV ×2 (05:54→17:14)
--- NOTE | 2023-11-25 06:09 | PTCARENOTE ---
~0445, pupils noted to be unequal. R > L. Sluggish B/L. SILVERWARE BUFFING MACHINE OPERATOR to bedside. Stat CT of head ordered. Pt. transported with RT and 2 RNs without complication. Pt. remains on vaso, levo and kory gtts. Pt. has not voided. SILVERWARE BUFFING MACHINE OPERATOR Luis Enrique aware. Bladder
scanned twice for 30ml overnight. AM labs noted and discussed with SILVERWARE BUFFING MACHINE OPERATOR. Monitoring
[2023-11-25] MEDS: KCENTRA 60 UNIT IV (06:43)
--- NOTE | 2023-11-25 06:52 | W.PN.UPDATE ---
Update Note
Progress Note Update
Received ICU AP text at 0613H
[id number] Enrique COOK�[id number]
Acute VDRF due to acute hypercapnic hypoxic RF yesterday
HX CLL, Prx AF on Warfarin. INR at this hr is 3.76
HCT ordered at 0450 report due to remain unresponsive on Vent an not sedated.
HCT : Chronic/subacute subdural hematomas
ICU AP called [facility]surgery and [facility]
INR will be urgently reversed with FFP and Vit K
Radiology Director saw the patient at ICU, case dw spouse at bed side and ICU YAEL.
Radiology Director spoke with MICU YAEL Mireya Ford. Technically patient is accepted.�
TF process is initiated.
- Primary hospitalist and Clinical Psychologist Licensed to follow up.
- If patient is still here, [facility] at 11 AM.
[2023-11-25] MEDS: AQUAMEPHYTON 51 MG IV (06:53)
--- NOTE | 2023-11-25 07:02 | W.PN.UPDATE ---
Update Note
Progress Note Update
11/25/23
0530- Patient has pupillary changes, right pupil >left pupil, bilaterally sluggish. Patient was agonal on ventilator and sedation was previously initiated previously for that reason: propofol gtt and fentanyl prn. Patient is not following
commands, he will spontaneously move hands and tap feet slightly. Ctscan was ordered for pupillary changes and continued altered mental status. Ctscan of the head w/o contrast: bilateral acute on subacute holohemispheric subdural hematomas which
both measure 12 mm over the frontal convexities. Discussed Ctscan of the head findings with neurologist Dr. Nichols and neurosurgeon Dr. Liriano. Neurosurgeon recommendation: stop ASA, give Kcentra and vitamin K, neurochecks, maintain SBP <140, and
Head of bed >30 degrees, and transfer to [facility] for neurosurgery follow if family is agreeable, follow up Ctscan of the head in [address] Parks, hospitalist updated and reviewed case, he discussed with patient's transfer at bedside.
Patient's Sharon Lundberg, updated on patient's current condition and Ctscan of the head findings, answered all questions, agreed to transfer to [facility]. RN updated on plan of care.
0700- Dr. Slade, engine tester, updated and reviewed case.
0715- Patient's discussed further with family and stated 'if Enrique didn't wish to have open heart surgery, he would not want neurosurgery' and requested that he remain at [facility]. Will cancel transfer to [facility]. Ctscan
of the head will be ordered to be repeated. Kcentra and vitamin K was administered by the nurse and updated on plan of care.
--- NOTE | 2023-11-25 07:08 | W.PN.INTV ---
Today's Communication / Plan
Recommendations
On empiric abx, culture pending
On 3 pressors
Stop IV steroids, resume home dose
Adjust SS to moderate
Neuro following, repeat CT head
GOC discussions ongoing, patient is now DNR
Prognosis overall is poor
Assessment
-
Mr Enrique Matthews is an 83/M readm 11-23 with multiple comorbidities including COPD with new onset O2 use since one week prior to readm (adm 11-10 to : AECHF, AECOPD). Doing relatively well at [facility] after recent d/c, spoke to him over the phone
on DOA and he sounded resp marte stable. Recently started on new onset HD during last adm, due to MWF sessions, patient requested to stop HD session after 30 min on 11-21 as he had to use the bathroom. visited patient at [facility] and found him
dyspneic and lethargic, found hypoxemic on O2 3L, reports no explanation or timing of clinical changed occurred. Returned to by EMS, dyspneic, hypoxemia persisted in spite of BPAP application, GOC discussed at ER and patient nodded agreement with
intubation and was supported on that decision by family at bedside
Impression:
Acute shock on pressors, suspect septic given WBC count/fevers
Acute on chronic respiratory failure
Hypoxemia and resp distress did not respond to BPAP
Intubated at ER
Acute on subacute SDH, 12mm, new w/ trace parafalcine hemorrhage 4mm posteriorly
Leukocytosis with bandemia
Hyponatremia/hyperkalemia
Metabolic acidosis
Lactic acidosis
Elevated LFTs, shock liver
Recent admission for acute HF newly placed on HD
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
CLL
Myelofibrosis
A-fib, s/p multiple DCCV, on chronic amiodarone and warfarin
CAD with history of [place] (08/2015) s/p stent to LAD
HFpEF
COPD, Follows Dr Camara.
PFT November 2022: FEV1/FVC of 71, TLC 79, RV 61%, w/ severe diffusion capacity (DLCO: 36%)
HTN
HLD
T2DM
CKD, on new onset HD MWF since last adm [facility] earlier November 2023
H/o Cdiff
BEs
PV on Agrylin
Mild restrictive lung disease
ABELARDO on auto-BiPAP
Cold agglutinin disease
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
Gout
BPH
Mohs surgery (left middle finger)
Bilateral cataract surgery
Pilonidal cyst excision
Former Smoker (Quit smoking in his 20s)
Plan
Sedation on board, prop/fent
Wean as able
CT showing subacute SDH, with small bleed
Neuro following, has declined Neurosx intervention
Repeat CT planning today
Keep MAP/BP goals per neuro
Acute on chronic resp failure
Multifactorial chronic resp failure: COPD, CHF, BE, deconditioning, multiple comorbidities
Continue ACV
16-500-5-1.0 (POx 94%)
Pk pr 26, Pl pr 12
Sedation/analgesia
Stop nebs and IV steroids, not wheezing
CXR showing possible infiltrate, perihilar haziness on my view, no acute findings
Extensive cardiac history noted--A-fib, s/p multiple DCCV, on chronic amiodarone and warfarin
CAD with history of ND (08/2015) s/p stent to LAD, HFpEF
Now on 3 pressors, wean as tolerated
Prior ECHO reviewed, stable findings
Continue amiodarone 200 mg bid
OAC contraindicated at this point
Fever/WBC noted, awaiting final blood cultures
Empiric atbs: vanco, cefepime, metronidazole
May need to discontinue tunneled cath if bacteremic
Reportedly allergic to prednisone
Resume home decadron
Chronic kidney disease, newly on HD last admission
Patient interrupted HD 11-21 after 30 min of session
Continue HD per renal team
History of CLL/Myelofibrosis
Prognosis guarded due to multiple comorbidities
DM history, resume home meds
SS coverage, change to moderate SS
Family Discussions
Sudhir 11/25/23- I had extensive conversation with at bedside and she is aware his prognosis is very poor given his extensive comorbidities. She was not sure how to make decision regarding end of life as she feels she wants to give him a change
to 'turn around.' She has declined neurosurgery and would not want to pursue any measures that would prolong his suffering or time on vent. She has decided to make patient DNR as I feel this would not change his outcome. Updated care team
regarding change. Will continue GOC discussions.
Admitted and full code-D/w and daughter at ER
Diagnostic Data
CXR 11-23 c/w 17: new mild parenchymal and vasc congestion. ETT. R chest tunn HD cath. No free air
TTE 10-25-2023: Normal left ventricular wall thickness. Normal left ventricular chamber size. Mildly reduced left ventricular systolic function. Left ventricular ejection fraction is 44% by Anaya's method.
Global hypokinesis, more prominent in the mid and basal segments of the anterolateral wall. Normal right ventricular size and function. Mitral valve opens normally. Mild to moderate mitral regurgitation. Trace to mild aortic regurgitation. Mild
tricuspid regurgitation. The IVC is of normal size and demonstrates normal respiratory variation. Normal pericardium without effusion.
No significant change noted from 09/2023
-----
Critical Care time 76 mins -- The patient is admitted for acute critical illness for the treatment of vital organ failure and/or prevention of further life-threatening conditions. Total care includes time spent in review of history, physical exam,
medications, hemodynamic/ventilator parameters, laboratory data, imaging and discussion with house staff, pharmacy, respiratory therapy, pattern changer and repairer, and nursing.
Subjective Dataa
Subjective Data
Date of Service:
Date of Service: November 25, 2023
Chief Complaint: Aeronautical Engineer Follow Up
Subjective:
critically ill, intubated, agonal appearance
at bedside
on 3 pressors
Objective Data
Data Reviewed
Vital Signs / I&O / Oxygen:
Vital Signs
Temp Pulse Resp BP Pulse Ox
100.7 F H 85 29 125/53 97
11/25/23 03:02 11/25/23 06:00 11/25/23 06:00 11/25/23 06:00 11/25/23 06:00
Intake and Output
11/24/23 11/25/23 11/26/23
06:59 06:59 06:59
Intake Total 1836.8 / 1836.8
Balance 1836.8 / 1836.8
SaO2 [A/C] 97
SaO2 97
Physical Exam
General: Other (chronically ill appearing, agonal)
HEENT: Normocephalic, Anicteric and Moist Mucous Membranes
Cardiovascular: S1-S2 and Regular Rhythm
Respiratory: Clear, Non-Labored Respirations and ET Tube
GI: Soft, Non Distended and Non Tender
Neurology: Lethargic (minimally responsive)
Skin: Warm and Dry
Labs/Micro/Reports
Lab Data
11/25/23 03:37
11/25/23 03:36
Laboratory Results
11/24/23 11/24/23 11/24/23
17:08 19:11 21:45
PT 24.1 H
INR 2.17
APTT 26.9
pH Cancelled 7.14 L*
pCO2 Cancelled 53 H
pO2 Cancelled 86
HCO3 Cancelled 18.0 L
O2 Delivery Level Cancelled Not Reportable
11/25/23 11/25/23 11/25/23
03:36 04:21 04:53
PT 37.2 H
INR 3.76
APTT
pH 7.13 L* 7.18 L*
pCO2 46 35
pO2 51 L* 83
HCO3 15.3 L* 13.1 L*
O2 Delivery Level
Microbiology
11/24/23 16:40 Nasal Swab Influenza Types A & B (YOBANY) - Final
Negative for Influenza A & B, NAAT
Negative results must be combined with clinical observations
and patient history.
Nucleic Acid Amplification test (NAAT)performed on the
[employer] platform.
[2023-11-25] MEDS: DIPRIVAN 100 IV (07:16)
[2023-11-25] MEDS: PULMICORT 0.5 MG INH (07:32)
[2023-11-25] MEDS: DUONEB 3 ML INH ×3 (07:32→15:42)
--- NOTE | 2023-11-25 07:40 | PTCARENOTE ---
Received pt intubated with bilateral soft wrist restraints intact. Right #20g AC protective catheter with Propofol 10mcg/kg/min, Levophed 30mcg/min, and Vasopressin 0.03units/min. Left AC#18g protective catheter with Luis Enrique-synephrine @80mcg/min. Left
hand #18g prehospital site flushed, leaked and pt winced while flushing. INR elevated. Doppler DP/PT pulses. Nail beds cyanotic. Agonal on the ventilator, however he opened his eyes to verbal and tactile stimuli. Followed simple commands. Right
pupil >left and sluggishly reactive. +corneal reflexes. at the bedside and is aware of the gravity of her husbands situation given his ESRD, current clinical condition, history of inoperable CAD, and already deconditioned state given his
advanced age. She asked about HD and I informed her that would be determined by the interactive media marketing director based on his current condition, PMH & likelihood of recovery. She verbalized her understanding. She needs to discuss GOC with his children. She is aware
he is high risk of bleeding given his elevated INR. Hypoactive BSX4. Left nare SS secured and clamped due to recent medication administration. NPO. #24 condom catheter intact. No urinary output. is aware that he will be taken for a repeat head
CT to re-evaluate his SDH. HOB >30 degrees as ordered. Sacral wound with silicone border dressing CDI. Scattered ecchymosis on his extremities. Safe environment maintained, supportive care given.
--- NOTE | 2023-11-25 08:23 | PTCARENOTE ---
Left nare [place] sump tube secured but clamped due to recent administration of medication from prior nurse.
[2023-11-25] MEDS: PACERONE 200 MG PO (08:55)
[2023-11-25] MEDS: DECADRON 6 MG IV (08:56)
[2023-11-25 09:01] LABS: INR 2.15; PT 23.8 Sec (11.4-14.6)
--- NOTE | 2023-11-25 09:02 | CON.GI ---
Addendum entered and electronically signed by Bravo Mar MD 11/25/23 10:26:
I saw and examined the patient.
The [employer] PATCH[employer] HELPER or PA's note was reviewed and I agree with the note.
Comment: 83yo male admitted with fever, respiratory failure, intubated, hypotensive started on pressors. LFTs normal on admission then spiked up today. Has been on amiodarone for afib and recently increased dose. Family at bedside denies
significant EtOH or prior liver issues. Started on HD recently and Hep B/C negative
REC:
Likely shock liver due to hypotension requiring pressors
Would simply trend LFTs for now
If abd pain consider US abd, but given other critical issues, would hold on sending him down to radiology if not necessary
Original Note:
Consultation
-
Date/Time Consultation Requested: 11/25/23 08
Date/Time Consultation Performed: 11/25/23 09
Requesting Provider: Adrian Frank MD
Performing Provider: PADMA Oates, Bravo Mar MD
Reason for Consultation: increased LFT's
Medical History
Chief Complaint / HPI
History of Present Illness:
Pt is a 83yo presents with hx PAF, CAD, CHF, CVA, HTN, IDDM , OR, ESRD on HD, MGUS, BPH presents with recent admission 11/10- 11/20 with multifactorial hypoxemia with CHF, COPD and interstitial lung disease. He was also newly started on HD and had
increase in amiodarone to BID. He now returns with resp distress during dialysis requiring intubation in ER. On admission he was noted with significant hypotension with BP to 67/33 requiring pressor support and fever up to 102.4 after admission
with concern for sepsis. On admission 11/23 labs with bili 1.1, AST 22, ALT 23 and alk phos 57 then rise 11/24 bili 2.1, AST 1462, ALT 915, alk phos 915. INR was elevated to 3.76 in setting of chronic coumadin use.
Pt intubated and sedated. In reviewing with family no hx liver issues in past. No hx ETOH use or abdominal pain reported prior to admission. Per family no other GI issues.
Past Medical History
Past Medical History: Arrhythmias (afib), CAD, CHF, CVA (TIA), HTN, IDDM, OR, Renal Failure (ESRD on HD) and Other (MGUS, BPH, myelofibrosis, coccyx /perineal ulcer, anemia)
Past Surgical History: Cardiac (stents )
Social History
Tobacco: Former Smoker
Alcohol: None
Drug: None
Personal:
Living: With Family
Family History
Family History: Reviewed & Not Pertinent
Allergies / Home Medications
Allergy/AdvReac Type Severity Reaction Status Date / Time
atorvastatin Allergy ? M-S pain Verified 11/24/23 15:07
immune globulin,gamma (IgG) Allergy Anaphylaxis Verified 11/24/23 15:07
human
prednisone Allergy SEE BELOW Verified 11/24/23 15:07
�Medication �Instructions �Recorded
rosuvastatin 5 mg tablet 5 mg PO QPM High Cholesterol 07/09/19
febuxostat 40 mg tablet 40 mg PO DAILY uric acid 04/29/23
ferrous sulfate 325 mg (65 mg 325 mg PO QPM Supplement ##0 04/29/23
iron) tablet
finasteride 5 mg tablet 5 mg PO QPM BPH 04/29/23
nitroglycerin 0.6 mg/hr 1 patch transdermal DAILY Heart 04/29/23
transdermal 24 hour patch Disease/Condition ##0
(Nitro-Dur)
aspirin 81 mg tablet,delayed 81 mg PO DAILY Blood Clot 06/20/23
release Prevention/Tx
guaifenesin 600 mg tablet, 600 mg PO BID Neurological 09/01/23
extended release 12 hr Condition
acetaminophen 500 mg tablet 500 mg PO DAILYPRN PRN mild pain 10/24/23
(Tylenol Extra Strength)
carboxymethylcellulose sodium 1 % 1 drp BOTH EYES DAILYPRN PRN dry 10/24/23
eye liquid gel drops eyes
momelotinib 200 mg tablet (Ojjaara) 200 mg PO BID Myelofibrosis 10/24/23
dapagliflozin propanediol 5 mg 5 mg PO DAILY Heart 11/11/23
tablet (Farxiga) Disease/Condition
ipratropium 0.5 mg-albuterol 3 mg 3 ml inhalation DAILYPRN PRN sob 11/11/23
(2.5 mg base)/3 mL nebulization
soln
budesonide 0.5 mg/2 mL suspension 0.5 mg (2 mL) inhalation R BID sob 11/21/23
for nebulization #0 mL
dexamethasone 1 mg tablet 3 mg (3 x 1 mg) PO DAILY 11/21/23
Anti-Inflammatory #0 tabs
insulin glargine 100 unit/mL (3 8 unit (0.08 mL) SC HS #5 ea 11/21/23
mL) subcutaneous pen (Lantus
Solostar U-100 Insulin)
insulin lispro 100 unit/mL 10 unit (0.1 mL) SC AC #5 ea 11/21/23
subcutaneous pen (Humalog KwikPen
(U-100) Insulin)
ipratropium 0.5 mg-albuterol 3 mg 3 ml inhalation R BID #0 mL 11/21/23
(2.5 mg base)/3 mL nebulization
soln
metoprolol succinate 25 mg 12.5 mg (1/2 x 25 mg) PO BID #0 11/21/23
tablet,extended release 24 hr tabs
acetaminophen 325 mg tablet 650 mg PO Q6HPRN PRN mild pain 11/24/23
(Tylenol)
amiodarone 200 mg tablet (Pacerone) 200 mg PO BID 11/24/23
bisacodyl 10 mg rectal suppository 10 mg [place] DAILYPRN PRN if no bm 11/24/23
(Dulcolax (bisacodyl)) aftr mom
magnesium hydroxide 400 mg/5 mL 2,400 mg PO [id number] PRN if no bm 11/24/23
oral suspension (Milk of Magnesia) by 3rd day
warfarin 5 mg tablet 5 mg PO .QPMX2D 11/24/23
Review of Systems
-
Unable to obtain full review of systems at this time due to: Patient Intubation
History Source: Patient and Family
Constitutional: Reports Fever and Weight Loss (with start of HD and diuresis )
EENT: Reports No Symptoms
Respiratory: Reports Cough
Abdomen/GI: Reports No Symptoms
: Reports Other (anuric )
Skin: Reports No Symptoms
Neurological: Reports Weakness and Other (sedated )
Endocrine: Reports No Symptoms
Hematologic/Lymphatic: Reports No Symptoms
Vital Signs
Temp Pulse Resp BP Pulse Ox
99.8 F 84 24 123/52 92
11/25/23 08:43 11/25/23 08:55 11/25/23 08:30 11/25/23 08:55 11/25/23 08:43
Physical Exam
Exam
General: Other (sedated/intubate, some movement to stimulation)
HEENT: Normocephalic and Anicteric
Cardiac: Regular Rhythm
GI: Soft, Non Tender and Tender
Musculoskeletal: No Clubbing
Skin: Warm and Dry
Neuro: Other (sedated )
Psych: Calm
Results
WBC 16.5 10^3/uL (4.8-10.8) H 11/25/23 03:37
Hgb 10.1 g/dL (13.0-18.0) L 11/25/23 03:37
Hct 31.7 % (39.0-52.0) L 11/25/23 03:37
MCV 90.6 fL (80.0-94.0) 11/25/23 03:37
Plt Count 330 10^3/uL (130-400) 11/25/23 03:37
PT 37.2 Sec (11.4-14.6) H 11/25/23 03:36
INR 3.76 11/25/23 03:36
APTT Cancelled 11/25/23 08:38
Sodium 129 mmol/L (135-145) L 11/25/23 03:36
Potassium 5.3 mmol/L (3.5-5.1) H 11/25/23 03:36
Chloride 94 mmol/L (98-107) L 11/25/23 03:36
Carbon Dioxide 14 mmol/L (22-30) L* 11/25/23 03:36
BUN 107 mg/dl (9-20) H* 11/25/23 03:36
Creatinine 6.2 mg/dL (0.7-1.3) H* 11/25/23 03:36
Calcium 6.6 mg/dl (8.4-10.2) L* 11/25/23 03:36
Total Bilirubin 2.1 mg/dl (0.2-1.3) H D 11/25/23 03:36
AST 1462 U/L (17-59) H* 11/25/23 03:36
ALT 915 U/L (0-50) H* 11/25/23 03:36
Alkaline Phosphatase 63 U/L (38-126) 11/25/23 03:36
Diagnostic Image Results:
no abd imaging since admission
Assessment / Plan
-
Pt is a 83yo presents with hx PAF, CAD, CHF, CVA, HTN, IDDM , OR, ESRD on HD, MGUS, BPH presents with recent admission 11/10- 11/20 with multifactorial hypoxemia with CHF, COPD and interstitial lung disease. He was also newly started on HD and had
increase in amiodarone to BID. He now returns with resp distress during dialysis requiring intubation in ER. On admission he was noted with significant hypotension with BP to 67/33 requiring pressor support and fever up to 102.4 with concern for
sepsis after admission. On admission 11/23 labs with bili 1.1, AST 22, ALT 23 and alk phos 57 then rise 11/24 bili 2.1, AST 1462, ALT 915, alk phos 915. INR was elevated to 3.76 in setting of chronic Coumadin use.
-marked elevation in liver function with normal labs on admission 11/23
-hypotension on multiple pressors
-fever/leukocytosis/sepsis
-PAF with recent increased amiodarone- Coumadin prior to admission
-b/l subdural hematomas- neuro following
other medical problems:
-COPD
-CAD
-ESRD with new DH last admission
-myelofibrosis
-MGUS
-BPH
-anemia
-myelofibrosis
PLAN:
etiology of elevated LFT's related shock liver with marked hypotension vs other
cont to trend labs
remain on Amiodarone BID
cont pressors to maintain perfusion
recent hepatitis B/C neg
if not improving consider US abdomen
for ID eval for fever work up
updated family at bedside-- family reviewing goals of care with medical team now DNR
-
-
Thank you for consultation and allowing me to participate in the patient's care. Please call the recreation therapist GI physician during the after hours with any questions or concerns.
--- NOTE | 2023-11-25 09:05 | W.PN.HOSP.TC ---
Today's Communication/Plan
-
Continue with vent support.
Continue with vasopressors. Check troponins and consider an echocardiogram
Continue with antibiotics. Consult ID
Follow repeat CAT scan due at 11:00 regarding subdural hematomas
Repeat INR after reversal agents pending
Follow LFTs. Consult GI.
Assessment / Plan
Assessment / Plan
Septic shock -febrile illness with lactic acidosis and severe hypotension requiring vasopressors-all concerning for septic shock. Patient with history of CAD and low normal EF on the recent echo. Rule out any cardiac events. Check a troponin and
consider an echocardiogram.
Continue with broad-spectrum antibiotics pending culture data. Consult ID.
Known to have myelofibrosis , treatments stopped recently because of infection concern.
Continue vasopressors wean as able.
Acute shortness of breath with acute hypoxic hypercapnic respiratory failure needing intubation-suspect multifactorial-increased work of breathing from sepsis, pneumonia, CHF decompensation.
Currently on ventilator. Continue with ventilatory support for now. He is on 60% FiO2.
Fluid management with dialysis if able-nephrology consulted.
Continue with antibiotics.
History of COPD-no active wheezing. Continue with inhaler therapy and nebulizers.
Bilateral subdural hematomas-same spontaneous based on the history. No history of falls. Family holding on any neurosurgical interventions. INR reversal agents given. Await repeat CT head today.
End-stage renal disease on hemodialysis-did not finish his complete hemodialysis yesterday. Currently very hypotensive requiring 3 pressors. Consult nephrology
History of CAD -on medical treatment. Check troponins. Hold on aspirin due to subdural hematomas.
Chronic CHF with midrange EF-rule out acute component. On Farxiga along with hemodialysis for fluid management. Hold Farxiga
Paroxysmal atrial fibrillation-patient in sinus rhythm. Continue with amiodarone. Hold Coumadin further due to subdural hematomas
Acute transaminitis-suspect shock. Patient known to have cholelithiasis. Continue to trend and if any worsening of bilirubin or rising alkaline phosphatase check an ultrasound to rule out any biliary obstruction/sepsis
Myelofibrosis - mostly anemia sec to it. HH is ok compared to baseline. Platelets are okay. Currently not on any treatments.
Diabetes mellitus-continue with Lantus but hold mealtime insulin.
Discussed with and son at bedside-this is the sickest he has ever been. Never was intubated.
They were made aware about vasopressor dependent shock suspicious for sepsis but rule out other causes. Unlikely a candidate for dialysis with his hypotension. Evidence of organ dysfunction including shock liver evident. Also new issue of
spontaneous subdural hematomas adding to the risk of mortality. The made aware about high mortality due to a forementioned acute issues. They understand the prognosis is poor.
Discussed with outreach team member-she had a long chat with the who understands the critical nature of it. Now DNR.
Total Critical Care Time__45___ minutes. I was immediately available to the patient and staff. I personally examined, reviewed labs, diagnostic images/reports, interpretations, treatment plans, discussed patient care with other providers and
family or caregivers (if patient is unable to make decisions), entered orders as appropriate and documented the medical record.
Anticipated Discharge: > 48 hours
Subjective/Interval History
-
Date of Service: November 25, 2023
Patient currently intubated. On sedation with propofol.
On 3 vasopressors.
Unresponsive.
Last evening events about the subdural hematomas noted.
Objective Data
-
Labs:
Laboratory Results
11/24/23 11/24/23 11/25/23
17:08 21:45 03:36
WBC
Hgb
Hct
Plt Count
PT 37.2 H
INR 3.76
APTT
HCO3 Cancelled 18.0 L
Sodium 129 L
Potassium 5.3 H
Chloride 94 L
Carbon Dioxide 14 L*
BUN 107 H*
Creatinine 6.2 H*
Glucose 184 H
Calcium 6.6 L*
Total Bilirubin 2.1 H D
AST 1462 H*
ALT 915 H*
Alkaline Phosphatase 63
11/25/23 11/25/23 11/25/23
03:37 04:21 04:53
WBC 16.5 H
Hgb 10.1 L
Hct 31.7 L
Plt Count 330
PT
INR
APTT
HCO3 15.3 L* 13.1 L*
Sodium
Potassium
Chloride
Carbon Dioxide
BUN
Creatinine
Glucose
Calcium
Total Bilirubin
AST
ALT
Alkaline Phosphatase
11/25/23 11/25/23
08:38 08:38
WBC
Hgb
Hct
Plt Count
PT Pending
INR Pending
APTT Pending Cancelled
HCO3
Sodium
Potassium
Chloride
Carbon Dioxide
BUN
Creatinine
Glucose
Calcium
Total Bilirubin
AST
ALT
Alkaline Phosphatase
Vital Signs:
Vital Signs
Temp Pulse Resp BP Pulse Ox
99.8 F 84 24 123/52 92
11/25/23 08:43 11/25/23 08:55 11/25/23 08:30 11/25/23 08:55 11/25/23 08:43
I&O
11/24/23 11/25/23 11/26/23
06:59 06:59 06:59
Intake Total 1835.1985.7 299.8 / 299.8
Output Total 0 / 0
Balance 1836.8 / 1985.7 299.8 / 299.8
Review of Systems
-
Unable to obtain full review of systems at this time due to: Patient Intubation
Physical Exam
-
General: No Apparent Distress
HEENT: Moist Mucous Membranes
Respiratory: Crackles (Bilateral on anterior lateral auscultation); Negative Wheezes
Cardiac: Regular Rhythm and S1/S2; Negative Tachycardic
GI: Soft and No Hepatosplenomegaly
Musculoskeletal: No Edema
Neuro: Sedated
Psych: Calm
Data Reviewed
-
Labs: Labs Reviewed by me
[2023-11-25 09:19] LABS: APTT 27.1 Sec (23.4-35.0)
--- NOTE | 2023-11-25 09:28 | W.CON.NEPH ---
Consultation
-
Date/Time Consultation Requested: November 25, 2023 7 AM
Date/Time Consultation Performed: November 25, 2023 9 AM
Requesting Provider: Dr. Miles
Performing Provider: Dr. Tian
Reason for Consultation: ESRD, hypotension
Medical History
-
Chief Complaint: CKD 4
History of Present Illness:
Mr. Matthews is an 83YOM with PMH of CKD4, HFrEF, CLL/myelofibrosis, anemia of chronic disease, pAFib, CAD, COPD, HTN, DLD, recent Cdiff, BPH. He was started on dialysis during his last recent admission. He had then gone to [facility] for
rehabilitation. Reportedly, he did not get a full treatment of dialysis on Saturday. There is report that it was because he had wanted to go to the bathroom but also appears that he was hypotense. He ultimately came to the emergency room on Saturday
with hypoxic respiratory failure. He was intubated. He was also significantly hypotensive and required pressor therapy, now on 3 pressors. Early this morning he was noted to have pupillary changes with right pupil greater than the left and was
unable to follow commands. CT scan was ordered which showed bilateral large subdural hematomas. Neurology and neurosurgery were involved and recommendation at that time was to send patient to [facility] for possible neurosurgery. However,
had discussed with the family and they all agreed that the patient would never have wanted neurosurgery. He was given vitamin K. He is currently critically ill in the ICU
Past Medical History
CLL, myelofibrosis, atrial fibrillation, CAD status post stents, HFpEF, COPD, hypertension, hypercholesterolemia, diabetes, ESRD, anemia, C. difficile
Past Medical History: Other
Past Surgical History: Other (cardiac stents)
Social History
Tobacco: Former Smoker
Alcohol: None
Drug: None
Family History
Family History: Not Pertinent
Allergies / Home Medications
Allergy/AdvReac Type Severity Reaction Status Date / Time
atorvastatin Allergy ? M-S pain Verified 11/24/23 15:07
immune globulin,gamma (IgG) Allergy Anaphylaxis Verified 11/24/23 15:07
human
prednisone Allergy SEE BELOW Verified 11/24/23 15:07
�Medication �Instructions �Recorded �Confirmed �Type
rosuvastatin 5 mg tablet 5 mg PO QPM High Cholesterol 07/09/19 11/24/23 History
febuxostat 40 mg tablet 40 mg PO DAILY uric acid 04/29/23 11/24/23 History
ferrous sulfate 325 mg (65 mg 325 mg PO QPM Supplement ##0 04/29/23 11/24/23 History
iron) tablet
finasteride 5 mg tablet 5 mg PO QPM BPH 04/29/23 11/24/23 History
nitroglycerin 0.6 mg/hr 1 patch transdermal DAILY Heart 04/29/23 11/24/23 History
transdermal 24 hour patch Disease/Condition ##0
(Nitro-Dur)
aspirin 81 mg tablet,delayed 81 mg PO DAILY Blood Clot 06/20/23 11/24/23 History
release Prevention/Tx
guaifenesin 600 mg tablet, 600 mg PO BID Neurological 09/01/23 11/24/23 History
extended release 12 hr Condition
acetaminophen 500 mg tablet 500 mg PO DAILYPRN PRN mild pain 10/24/23 11/24/23 History
(Tylenol Extra Strength)
carboxymethylcellulose sodium 1 % 1 drp BOTH EYES DAILYPRN PRN dry 10/24/23 11/24/23 History
eye liquid gel drops eyes
momelotinib 200 mg tablet (Ojjaara) 200 mg PO BID Myelofibrosis 10/24/23 11/24/23 History
dapagliflozin propanediol 5 mg 5 mg PO DAILY Heart 11/11/23 11/24/23 History
tablet (Farxiga) Disease/Condition
ipratropium 0.5 mg-albuterol 3 mg 3 ml inhalation DAILYPRN PRN sob 11/11/23 11/24/23 History
(2.5 mg base)/3 mL nebulization
soln
budesonide 0.5 mg/2 mL suspension 0.5 mg (2 mL) inhalation R BID sob 11/21/23 11/24/23 Rx
for nebulization #0 mL
dexamethasone 1 mg tablet 3 mg (3 x 1 mg) PO DAILY 11/21/23 11/24/23 Rx
Anti-Inflammatory #0 tabs
insulin glargine 100 unit/mL (3 8 unit (0.08 mL) SC HS #5 ea 11/21/23 11/24/23 Rx
mL) subcutaneous pen (Lantus
Solostar U-100 Insulin)
insulin lispro 100 unit/mL 10 unit (0.1 mL) SC AC #5 ea 11/21/23 11/24/23 Rx
subcutaneous pen (Humalog KwikPen
(U-100) Insulin)
ipratropium 0.5 mg-albuterol 3 mg 3 ml inhalation R BID #0 mL 11/21/23 11/24/23 Rx
(2.5 mg base)/3 mL nebulization
soln
metoprolol succinate 25 mg 12.5 mg (1/2 x 25 mg) PO BID #0 11/21/23 11/24/23 Rx
tablet,extended release 24 hr tabs
acetaminophen 325 mg tablet 650 mg PO Q6HPRN PRN mild pain 11/24/23 11/24/23 History
(Tylenol)
amiodarone 200 mg tablet (Pacerone) 200 mg PO BID 11/24/23 11/24/23 History
bisacodyl 10 mg rectal suppository 10 mg [place] DAILYPRN PRN if no bm 11/24/23 11/24/23 History
(Dulcolax (bisacodyl)) aftr mom
magnesium hydroxide 400 mg/5 mL 2,400 mg PO [id number] PRN if no bm 11/24/23 11/24/23 History
oral suspension (Milk of Magnesia) by 3rd day
warfarin 5 mg tablet 5 mg PO .QPMX2D 11/24/23 11/24/23 History
Review of Systems
-
Intubated and sedated
Physical Exam
Vital Signs
Vital Signs
Temp Pulse Resp BP Pulse Ox
99.8 F 84 24 123/52 92
11/25/23 08:43 11/25/23 08:55 11/25/23 08:30 11/25/23 08:55 11/25/23 08:43
Lab Results
WBC 16.5 10^3/uL (4.8-10.8) H 11/25/23 03:37
RBC 3.50 10^6/uL (4.70-6.10) L 11/25/23 03:37
Hgb 10.1 g/dL (13.0-18.0) L 11/25/23 03:37
Hct 31.7 % (39.0-52.0) L 11/25/23 03:37
Plt Count 330 10^3/uL (130-400) 11/25/23 03:37
Sodium 129 mmol/L (135-145) L 11/25/23 03:36
Potassium 5.3 mmol/L (3.5-5.1) H 11/25/23 03:36
Chloride 94 mmol/L (98-107) L 11/25/23 03:36
Carbon Dioxide 14 mmol/L (22-30) L* 11/25/23 03:36
BUN 107 mg/dl (9-20) H* 11/25/23 03:36
Creatinine 6.2 mg/dL (0.7-1.3) H* 11/25/23 03:36
eGFR 8.41 11/25/23 03:36
Glucose 184 mg/dl (70-99) H 11/25/23 03:36
Calcium 6.6 mg/dl (8.4-10.2) L* 11/25/23 03:36
Phosphorus 5.8 mg/dl (2.5-4.5) H 11/24/23 15:18
Albumin 2.6 g/dl (3.5-5.0) L 11/25/23 03:36
Physical Exam
Patient is awake alert oriented and in no distress. Mood and affect were pleasant, insight and judgment were good. Pupils are equal round and reactive to light, extraocular movements are intact, sclera were anicteric. Hearing was normal, ears and
nose are intact. Oropharynx was clear. Neck was supple with trachea midline and no thyromegaly. Heart was regular rate and rhythm without rubs. Lower extremities without edema. Lungs were clear to auscultation bilaterally and with normal
excursion. Abdomen was soft, nontender, with normal active bowel sounds, and no hepatosplenomegaly. Skin was without rash and with normal turgor.
Data Reviewed
-
Radiology: Image Personally Visualized and interpreted (Chest x-ray on 11/25/2023 by my reading shows small effusions only, chronic bilateral atelectasis.)
CT Scan: Report Reviewed by me (CT head on 11/25/2023 shows large bilateral subdural collections new since September 23, 2023)
Labs: Labs Reviewed by me (WBC 16.5, hemoglobin 10.1, platelet 330, sodium 129, potassium 5.3, chloride 94, bicarbonate 14, BUN 107, creatinine 6.2, lactic acid 4.9, calcium 6.6, AST 1462, ALT 915)
Assessment/Plan
-
ESRD
Acute on chronic hypoxic respiratory
COPD/interstitial lung disease/recent pneumonia
History of congestive heart failure
Anemia
CLL/MGUS/myelofibrosis
Type 2 diabetes
Hypertension
BPH
History of C. difficile (on vancomycin)
Metabolic acidosis
Hypotension
Lactic acidosis
Hyponatremia
Plan:
I had a long discussion with the as well as son and [id number]. His prognosis is grim. He is opted against neurosurgery. I suspect that his prognosis is very poor without intervention for his subdural hematomas. He also has significant
hypotension possibly sepsis as well. We discussed dialysis. He would not tolerate intermittent dialysis at this time though may tolerate CRRT. However I was quite clear in that CRRT may not alter his overall outcome. The would like to see
how his CT this morning shows. We will also follow his blood work. I did tell them that CRRT may buy them hours to days. My greater concern would be that even if he were to survive this hospitalization, his convalescence would be extremely long
and very difficult.
Follow BMP, lactic acid
Await CT scan
Prognosis poor
Critical care time spent 45 minutes.
[2023-11-25 09:56] LABS: Fibrinogen 154 MG/DL (199-459)
[2023-11-25 10:20] LABS: Direct Bilirubin 1.7 mg/dl (0.0-0.4)
--- NOTE | 2023-11-25 10:58 | CM ---
CM following re: discharge planning.
Discussed in Rounds, reviewed pt's chart, met with pt. Pt's family in a waiting area discussing plan of care.
Pt is an 83 year old male, admitted with primary dx of Acute hypoxic respiratory failure likely multifactorial due to pneumonia/pneumonitis, acute on chronic CHF, ESRD on hemodialysis, worsening interstitial lung disease. Patient does have
underlying ABELARDO, COPD. Per Rounds meeting, pt remains intubated, now DNR, continue supportive care with goals of care discussion with the family.
Pt lives with spouse 2SH, 2 steps to enter, has 2 supportive children.
Pt is admitted from [facility] where he was just 2 days. Per [facility] liaison, pt's spouse visited the pt and called 911 to ching the pt to . Pt is on HD treatment, outpatient HD treatment set up at [facility].
PCP: Rob Santos
Pharmacy: [facility]
D/C plan: uncertain at this time and will depend on pt's progress.
CM will follow with discharge plan updates as hospitalization progresses
[2023-11-25 10:59] LABS: Lactic Acid 4.1 mmol/L (0.7-2.0)
[2023-11-25 11:06] LABS: ALT (SGPT) 980 U/L (0-50); AST (SGOT) 1094 U/L (17-59); Albumin 2.3 g/dl (3.5-5.0); Alkaline Phosphatase 67 U/L (38-126); Blood Urea Nitrogen 107 mg/dl (9-20); Calcium 6.9 mg/dl (8.4-10.2); Carbon Dioxide 15 mmol/L (22-30); Chloride 91 mmol/L (98-107); Direct Bilirubin 2.4 mg/dl (0.0-0.4); Estimated Creatinine Clearance 8 ml/min; Glucose 360 mg/dl (70-99); Sodium 124 mmol/L (135-145); Total Bilirubin 2.9 mg/dl (0.2-1.3); eGFR 8.75
[2023-11-25 11:11] LABS: Troponin I 0.101 ng/ml
[2023-11-25 11:52] LABS: Glucose - Point of Care 422 mg/dl (70-99)
--- NOTE | 2023-11-25 11:52 | CON.NEURO4 ---
Consultation - Neurology 4
-
CONSULTING PHYSICIAN: Vijaya Nichols
REFERRING PHYSICIAN: ICU
DICTATED BY: Vijaya Nichols
DATE/TIME OF REQUEST: 11/25/23
DATE/TIME OF CONSULTATION: 11/25/23
Reason for Consultation: Subdural hematomas on CT head
History of Present Illness:
The patient is an 83-year-old male with a past medical history of atrial fibrillation on Coumadin, coronary artery disease status post stent, COPD and interstitial lung disease, hypertension, diabetes and end-stage renal disease on hemodialysis
presented to hospital with left dyspnea and hypoxic respiratory failure. Patient was tried on BiPAP in the ED but worsened and so was intubated.
Patient noted to have abnormal left eye pupillary examination which led to CT head noncontrast which demonstrated mostly chronic bilateral subdural hematomas with some element of acute blood as well. INR was 3.76 and patient recieved IV Vitamin K
as well as Kaycentra for reversal of coumadin.
Patient's reports that he has had no unusual headaches or even minor head trauma recently. 1 week ago he was functioning well with no appearance of altered mental status or unusual headaches or confusion.
Past Medical History: Atrial fibrillation on coumadin, CAD, CLL, COPD, ILD, diabetes mellitus, ESRD on hemodialysis
Surgical History: Cardiac stent
Family History: Non-contributory
Social History: and lives with his , adult son at bedside as well, retired, no alcohol use, former tobacco smoking
Review of Symptoms:
Patient denies any fever, headache, chest pain, shortness of breath, GI or symptoms.
Physical Exam:
Elderly man chronically ill-appearing intubated, left eye somewhat opacified with no erythema or purulence, ET tube in place, neck supple no masses, no meningismus, heart rate regular, breath sounds present bilaterally with crackles throughout,
abdomen soft nontender no lower extremity edema seen or rash, thin muscle mass throughout
Neurologic examination:
Mental status: Performed while on sedation, patient withdraws to pain but does not obey commands on this examination, does not open eyes or track, [id number]
Cranial Nerves: Left eye pupil miotic 2 mm with no reaction to light, right eye 3 mm with sluggish reaction to light present, corneal reflexes are present bilaterally, resting gaze is midline and vestibular ocular reflex is intact, strong cough
reflex is intact
Motor/sensory examination: Decreased muscle tone throughout no abnormal movements or tremor seen, decreased muscle bulk throughout. Symmetric withdrawal 3/5 hip flexion effort bilaterally. Flicker movements of the right hand no movement to deep
pain on the right or left fingers.
Reflexes are absent throughout Babinski is negative
Unable to assess coordination or gait
Neuro Imaging: Mostly chronic subdural hematomas bilaterally along with some evidence of acute blood in the midline falx area. No midline shift. No crowding of the basilar cisterns.
Impressions
1. Mostly chronic bilateral subdural hematomas with small amount of acute blood. No recent minor head trauma or unusual headaches. Subdural hematomas have probably been present for at least a couple of weeks and are most likely attributable to
atrophy of the brain with aging along with anticoagulation.
2. Unlikely that the pupillary abnormality seen is due to brain issue, I suspect more likely a primary ocular issue
3. Acute hypoxic respiratory failure requiring intubation, baseline COPD
4. Shock suspected septic shock
5. End-stage renal disease on hemodialysis
6. Coronary artery disease status post stent
7. Atrial fibrillation on coumadin
8. CLL
9. Myelofibrosis
10. Hypertension
11. Diabetes mellitus
12. HFpEF
13. Hyperlipidemia
Overall prognosis does appear poor with multiple organ significant pathology
Recommendations:
1. Repeated imaging of the subdural hematoma 6 hours after the first discovery shows stability
2. Would take 1 additional repeat imaging studies CT head noncontrast tomorrow morning at 6 AM
3. Would pursue systolic blood pressure maximum goal less than 160
4. Neurologic checks
5. As the subdural hematomas are chronic and the patient does not have evidence suggestive of significantly increased intracranial pressure I would not pursue any hyperosmolar therapy at this time
6. Daily sedation holiday
7. Reversal of Coumadin with Kaycentra, IV Vitamin K
8. Follow INR would repeat INR again later today
9. Hold coumadin, any antiplatelets, or heparin DVT prophylaxis
10. Do not feel that coumadin or systemic anticoagulation is a viable option moving forward
Will follow
Discussed patient care with: Patient's son and , ICU physician
--- NOTE | 2023-11-25 12:01 | CON.ID ---
Consultation
-
Date/Time Consultation Requested: November 25, 2023 0830
Date/Time Consultation Performed: November 25, 2023 1200
Requesting Provider: Dr. Adrian Frank
Performing Provider: Dr. Maggi Salgado
Reason for Consultation: Septic shock
Chief Complaint / Past History
Chief Complaint
Shortness of breath and change in mental status
History of Present Illness
History obtained from review medical records as well as from his at bedside. Patient is currently intubated and unable to provide any history. He is an 83-year-old male with diabetes mellitus, paroxysmal atrial fibrillation on Coumadin,
myelofibrosis off Ojjaara, COPD on O2, history of C. difficile, who was recently hospitalized from November 10 to November 20 with acute respiratory failure, acute on chronic heart failure, acute on chronic CKD stage IV and transitioned to hemodialysis. He
was discharged to [facility] on oxygen. Per he was doing well. On Saturday patient did not complete hemodialysis since he had to use the bathroom and that dialysis was not resumed afterwards. Yesterday his went to visit him and she
noted that he was not himself. He had trouble speaking. He was very short of breath. Patient was noted to be hypoxic and sent to the ER. Temperature was 102.3. White count of 14.4 with bandemia. Lactic acid persistently elevated. He was
hypotensive. Patient was intubated. Patient was started on broad-spectrum antibiotics cefepime, metronidazole, IV vancomycin. He is also on oral vancomycin every 6 hours. He is currently on 3 pressors. Last night patient's pupils noted to be
unequal. Head CT shows bilateral subdural hemorrhage. Per no recent trauma. No complaints of headache. No diarrhea. No urinary symptoms.
Past History
Additional Past Medical History:
Diabetes Mellitus, Type II
ESRD on HD
C. difficile (2023) s/p po Vanco taper
Myelofibrosis off Ojjaara since 09/2023
hx CLL s/p fludarabine
Coronary Artery Disease/stents
Chronic HFpEF
COPD
Paroxysmal Atrial Fibrillation
Essential Hypertension
Hyperlipidemia
COPD
IgG Deficiency
Monoclonal Gammopathy of Uncertain Significance
BPH
gout
Obstructive Sleep Apnea
Allergy History:
atorvastatin Allergy (Verified 11/24/23 15:07)
? M-S pain
immune globulin,gamma (IgG) human Allergy (Verified 11/24/23 15:07)
Anaphylaxis
prednisone Allergy (Verified 11/24/23 15:07)
SEE BELOW
Medications Reviewed: Yes
Current Antibiotics:
Cefepime 1 g IV every 24
IV vancomycin
Metronidazole 500 mg IV every 8
P.o. vancomycin 125 mg every 6
Social History
Tobacco: Former Smoker
Alcohol: None
Drug: None
Personal:
Living: Assisted ([facility])
Family History
Family History: Not Pertinent
Review of Systems
Review of Systems
Unable to obtain as patient intubated, critically ill.
Vital Signs
Temp Pulse Resp BP Pulse Ox
100.3 F 83 24 114/53 95
11/25/23 11:00 11/25/23 11:39 11/25/23 11:39 11/25/23 09:30 11/25/23 11:40
Selected Entries
11/24/23
15:07
Temp 102.3 F H
Physical Exam
Physical Exam
Constitutional: Acutely Ill
Eyes: Other (Pupils unequal.)
Cardiovascular: Regular Rate and S1/S2
Pulmonary: Clear (anteriorly)
Gastrointestinal: Soft, Non Tender, Non Distended and Normal Bowel Sounds
Extremities: Negative Edema or Erythema
Neurological: Other (Unresponsive; moves legs spontaneously)
Lines: HD Cath (RCW: no erythema)
Lab / Diagnostic Study Results
11/25/23 03:37
Total Counted 100 11/25/23 03:37
Abs Neuts (Manual) 15.3 10^3/uL (1.4-6.5) H 11/25/23 03:37
Segmented Neutrophils 62 % (42-75) 11/25/23 03:37
Band Neutrophils 31 % (0-3) H D 11/25/23 03:37
Lymphocytes (Manual) 4 % (20-51) L 11/25/23 03:37
PT 23.8 Sec (11.4-14.6) H 11/25/23 08:38
INR 2.15 11/25/23 08:38
Lactic Acid 4.1 mmol/L (0.7-2.0) H* 11/25/23 10:30
Microbiology Results
Micro:
11/25/23 10:32 Nasal Screen MRSA (PCR) - Pending
Nose
11/24/23 23:39 Nasal Screen MRSA (PCR) - Final
Nose
11/24/23 16:40 Influenza Types A & B (YOBANY) - Final
Nasal Swab Negative for Influenza A & B, NAAT
Negative results must be combined with clinical observations
and patient history.
Nucleic Acid Amplification test (NAAT)performed on the
[employer] platform.
11/24/23 15:34 Blood Culture - Pending
Blood/Venous
11/24/23 15:34 Blood Culture - Pending
Blood/Venous
11/24/23 CXR: Left hemidiaphragm somewhat obscured which could represent subsegmental atelectasis and/or pneumonia and tiny left pleural effusion. Bilateral widespread reticular interstitial opacification less prominent in comparison to prior study
of 11/18/23.
11/24/23 CXR: Interval NG tube placement as described. Slightly improved bibasilar airspace disease.
11/25/[address]: There are bilateral subdural collections which are new from examination of September 23, 2023. Appearance compatible with predominantly subacute bilateral subdural hematomas with a small component of acute hemorrhage as well.
Assessment / Plan
# Septic shock on 3 pressors
# Multisystem organ failure: shock liver, resp failure
-Blood cx's pending
- Ordered sputum cx
-replace cefepime/metronidazole with meropenem for now.
-Continue IV Vancomycin
- Follow clinically, vitals, wbc
-Overall poor prognosis.
# hx of recurrent C. diff
- Decrease prophylactic po vancomycin to 125mg daily.
# Subacute subdural hematomas
- Mental status change
-Neuro following
# ESRD on HD
# MDS, tx on hold
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
--- NOTE | 2023-11-25 12:08 | PTCARENOTE ---
S/P Head CT. Upon arrival to the ICU BP 46/27, Titrated Luis Enrique-synephrine as ordered. Family is at the bedside and was informed of the findings and how tenuous he is and if this persists they may want to regroup as a family and pivot care to comfort
and not recovery. Pt's and children nodded their head in understanding. Will continue to provide supportive care.
[2023-11-25 12:09] LABS: Glucose 363 mg/dl (70-99)
[2023-11-25] MEDS: NOVOLIN R 8 UNITS IV (12:31)
[2023-11-25] MEDS: NOVOLIN R INSULIN INFUSION 100 IV (12:39)
[2023-11-25] MEDS: PREVACID 30 MG TUBE (12:53)
--- NOTE | 2023-11-25 12:57 | PHA.VAN.FU ---
Vancomycin Assessment / Plan
- Assessment
Hemodialysis Schedule: MWF
WBC's are: Trending Up
In the past 24 hrs, patient has been: Febrile
Concomitant Antimicrobials: Meropenem
- Assessment - Therapeutic Drug Monitoring
Random Level: 11/24 @03:36 was 16.5
- Dosing Plan
Dosing by Level: Hold off on dosing today (HD treatment on hold. Possible change to CRRT)
- Follow Up
Pharmacy will continue to follow.
Vancomycin Follow UP
- -
Patient Age: 83
Patient Sex: Male
Vancomycin Day #: 2
Indication: Pulmonary/Respiratory
Requesting Provider: Dr. Miles
Pertinent Antimicrobial Allergies:
no pertinent antibiotic allergies
Height / Weight:
Height 5 ft 10 in
Actual Weight 62.5 kg
Pertinent Past Medical History: ESRD on HD MWF, CLL, DM2
- Vital Signs / Lab Results
Temp Pulse Resp BP Pulse Ox
100.3 F 82 25 95/23 97
11/25/23 11:00 11/25/23 12:00 11/25/23 12:00 11/25/23 12:00 11/25/23 12:00
Lab Results - Hematology
11/24/23 11/25/23
15:18 03:37
WBC 14.4 H 16.5 H
Band Neutrophils 10 H 31 H D
Lab Results - Chemistry
11/24/23 11/25/23 11/25/23
15:18 03:36 10:30
BUN 95 H 107 H* 107 H*
Creatinine 5.3 H* 6.2 H* 6.0 H*
Estimated Creat Clear 8 8
Albumin 2.7 L 2.6 L 2.3 L
11/24/23 11/24/23 11/25/23
15:34 21:11 03:36
Lactic Acid 2.6 H 2.9 H 4.9 H*
11/25/23
10:30
Lactic Acid 4.1 H*
Microbiology Results
11/25/23 10:32 Nasal Screen MRSA (PCR) - Final
Nose MRSA not detected - performed by PCR methodology.
11/24/23 23:39 Nasal Screen MRSA (PCR) - Final
Nose
11/24/23 16:40 Influenza Types A & B (YOBANY) - Final
Nasal Swab Negative for Influenza A & B, NAAT
Negative results must be combined with clinical observations
and patient history.
Nucleic Acid Amplification test (NAAT)performed on the
[employer] platform.
Therapeutic Drug Monitoring
Random Vancomycin 16.5 ug/ml 11/25/23 03:36
--- NOTE | 2023-11-25 13:10 | PTCARENOTE ---
Dr. Nichols notified that results of head CT reported and that family was waiting for update. He too along with Dr. Peguero is aware that his SBP has been in the 90's and MAP's 40's since his return from CT scan, necessitating the increase in the
Luis Enrique-synephrine drip.
[2023-11-25 13:51] LABS: Glucose - Point of Care 415 mg/dl (70-99)
[2023-11-25 14:15] LABS: Glucose 346 mg/dl (70-99)
--- NOTE | 2023-11-25 14:15 | VATNOTE ---
After repositioning PICC, radiology report of chest xray showed PICC in SVC. OK to use, communicated same to PCN.
[2023-11-25 14:16] LABS: Lactic Acid 5.1 mmol/L (0.7-2.0)
--- NOTE | 2023-11-25 14:24 | CON.NS ---
Chief Complaint
-
AMS
History of Present Illness
83-year-old male with past medical history of atrial fibrillation, CAD, CLL, COPD, ILD, hypertension, hyperlipidemia, pcp-qoeuvyj-anrlqmbed diabetes mellitus, MT, ESRD on hemodialysis, MGUS, myelofibrosis, CAD, BPH, coccyx/perineal ulcer came to the ""hospital with acute hypoxic respiratory failure and respiratory distress. He was recently hospitalized from November 10 to November 20 with acute respiratory failure, acute on chronic heart failure, acute on chronic CKD stage IV and transitioned to
hemodialysis. He was discharged to [facility] on oxygen. Per he was doing well. On Saturday patient did not complete hemodialysis since he had to use the bathroom and that dialysis was not resumed afterwards. Yesterday his went to
visit him and she noted that he was not himself. He had trouble speaking. He was very short of breath. Patient was noted to be hypoxic and sent to the ER. Temperature was 102.3. White count of 14.4 with bandemia. Lactic acid persistently
elevated. He was hypotensive. Patient was intubated. Patient was started on broad-spectrum antibiotics cefepime, metronidazole, IV vancomycin. He is also on oral vancomycin every 6 hours. He is currently on 3 pressors. Last night patient's
pupils noted to be unequal. Head CT shows bilateral chronic subdural hemorrhage that is stable on repeat CTH. does not recall any trauma. Neurosurgery was consulted for input. Neurology is also following the patient. Patient's has
declined transfer to [facility] and any possible neurosurgical intervention as she states he did not want any aggressive procedures. Patient is a DNR.
Review of Systems
-
unable to obtain as patient is intubated and sedated.
Medical History
Past Medical History
Additional Past Medical History:
CLL, myelofibrosis, atrial fibrillation, CAD status post stents, HFpEF, COPD, hypertension, hypercholesterolemia, diabetes, ESRD, anemia, C. difficile
Past Medical History: Other
Past Surgical History: Other (cardiac stents)
Additional Past Surgical History:
Social History
Tobacco: Former Smoker
Alcohol: None
Drug: None
Family History
Family History: Not Pertinent
Medication and Allergies
Home Medications
Home Medications
�Medication �Instructions �Recorded
rosuvastatin 5 mg tablet 5 mg PO QPM High Cholesterol 07/09/19
febuxostat 40 mg tablet 40 mg PO DAILY uric acid 04/29/23
ferrous sulfate 325 mg (65 mg 325 mg PO QPM Supplement ##0 04/29/23
iron) tablet
finasteride 5 mg tablet 5 mg PO QPM BPH 04/29/23
nitroglycerin 0.6 mg/hr 1 patch transdermal DAILY Heart 04/29/23
transdermal 24 hour patch Disease/Condition ##0
(Nitro-Dur)
aspirin 81 mg tablet,delayed 81 mg PO DAILY Blood Clot 06/20/23
release Prevention/Tx
guaifenesin 600 mg tablet, 600 mg PO BID Neurological 09/01/23
extended release 12 hr Condition
acetaminophen 500 mg tablet 500 mg PO DAILYPRN PRN mild pain 10/24/23
(Tylenol Extra Strength)
carboxymethylcellulose sodium 1 % 1 drp BOTH EYES DAILYPRN PRN dry 10/24/23
eye liquid gel drops eyes
momelotinib 200 mg tablet (Ojjaara) 200 mg PO BID Myelofibrosis 10/24/23
dapagliflozin propanediol 5 mg 5 mg PO DAILY Heart 11/11/23
tablet (Farxiga) Disease/Condition
ipratropium 0.5 mg-albuterol 3 mg 3 ml inhalation DAILYPRN PRN sob 11/11/23
(2.5 mg base)/3 mL nebulization
soln
budesonide 0.5 mg/2 mL suspension 0.5 mg (2 mL) inhalation R BID sob 11/21/23
for nebulization #0 mL
dexamethasone 1 mg tablet 3 mg (3 x 1 mg) PO DAILY 11/21/23
Anti-Inflammatory #0 tabs
acetaminophen 325 mg tablet 650 mg PO Q6HPRN PRN mild pain 11/24/23
(Tylenol)
amiodarone 200 mg tablet (Pacerone) 200 mg PO BID AFIB 11/24/23
bisacodyl 10 mg rectal suppository 10 mg DE DAILYPRN PRN if no bm 11/24/23
(Dulcolax (bisacodyl)) aftr mom
magnesium hydroxide 400 mg/5 mL 2,400 mg PO [id number] PRN if no bm 11/24/23
oral suspension (Milk of Magnesia) by 3rd day
warfarin 5 mg tablet 5 mg PO .[id number] Blood Clot 11/24/23
Prevention/Tx
insulin glargine 100 unit/mL (3 8 unit SC HS Diabetes 11/25/23
mL) subcutaneous pen (Lantus
Solostar U-100 Insulin)
insulin lispro 100 unit/mL 10 unit SC AC Diabetes 11/25/23
subcutaneous pen (Humalog KwikPen
(U-100) Insulin)
ipratropium 0.5 mg-albuterol 3 mg 3 ml inhalation R BID SOB 11/25/23
(2.5 mg base)/3 mL nebulization
soln
metoprolol succinate 25 mg 12.5 mg PO BID Blood Pressure 11/25/23
tablet,extended release 24 hr
Allergies
Allergies
Allergy/AdvReac Type Severity Reaction Status Date / Time
atorvastatin Allergy ? M-S pain Verified 11/24/23 15:07
immune globulin,gamma (IgG) Allergy Anaphylaxis Verified 11/24/23 15:07
human
prednisone Allergy SEE BELOW Verified 11/24/23 15:07
Physical Exam
-
Exam:
Patient is intubated and sedated but will follow command
patient opens eyes to name/stimulus
follows commands-wiggles fingers and toes
nods yes at times
Facial movement appears symmetric
pupils: left: 2mm NR; Right 3mm sluggish
+corneal reflex
Exams: CT Head W/o Iv Contrast
CPT: 88409
PROCEDURE: CT Head W/o Iv Contrast
CLINICAL INDICATION: subdural hematoma
TECHNIQUE: Unenhanced computerized tomography of the head was performed. Automated dose reduction technique was employed.
COMPARISON: CT examinations of the head from November 25, 2023 and September 23, 2023.
FINDINGS: Bilateral predominantly intermediate density subdural collections are identified involving both cerebral hemispheres. Small foci of slightly increased density are also present within the subdural collections. Findings suggest predominantly
subacute subdural hematomas with a small component of acute hemorrhage.
There is also subtle increased density in the left parafalcine subdural space, and appears stable from most recent examination and this probably acute subdural hematoma.
There is no evidence for a new area of cranial hemorrhage. There is no interval change in the areas of subdural hematoma.
No significant midline shift. The basilar cisterns are maintained.
There is a small 6 mm focus of CSF density in the right superior thalamus, which is unchanged from recent examination, compatible with an old infarct.
Subtle small foci of decreased density within the left superior cerebellar hemisphere and the left inferior occipital lobe, stable, and compatible with regions of old infarction.
IMPRESSION:
Stable CT appearance of the head compared to examination of November 25, 2023 at 0522 hours.
Problems
-
Problem Status Onset Code
ESRD (end stage renal disease) N18.6
Acute hypoxic respiratory failure J96.01
Pneumonia J18.9
Assessment / Plan
-
83 y/o M with bilateral SDH that appear stable on 2 scans
--imaging reviewed by and discussed with neurosurgery attending. No acute neurosurgical intervention indicated at this time. Bilateral SDH unlikely the cause of his current mental/health state.
--repeat CTH only for change in neuro exam
--updated family at bedside. confirmed she does not want transfer and would not want any neurosurgical intervention.
--neurosurgery to follow peripherally.
--repeat CTH in 1 week. will review cth once completed.
--- NOTE | 2023-11-25 15:15 | PTCARENOTE ---
Dr. Tian at the bedside. He is aware Vasopressin @ 0.03u/min, Norepinephrine 30mcg/min and Phenylephrine @200mcg/min. Will administer Calcium and 2amps of HCo3 as ordered. MAP still <65. Pt's and other family members provided supportive care.
They are all supporting each other. Prayer blanket on pt. Family aware that administering these medications may be a temporary measure. The pt's is asking about comfort measures and what that entails. She was informed of the process and is
aware when they are ready, we can transition to comfort. Will continue to provide supportive care.
[2023-11-25] MEDS: FIRVANQ PO (15:23)
[2023-11-25] MEDS: CALCIUM GLUCONATE 1000 MG IV (15:25)
[2023-11-25] MEDS: CALCIUM GLUCONATE 130 MG IV (15:50)
--- NOTE | 2023-11-25 15:51 | W.PN.UPDATE ---
Update Note
Progress Note Update
RSTP: hypotension worsening, pressors increased to max levophed/neosynephrine/vasopressin. remains on 50% FiO2 on vent. sedated on propofol.
labs with worsening lactic acidosis and shock liver. Calcium still low.
Replete Calcium and given IV bicarbonate. CRRT will not alter current clinical course. Family understands this. f/u conversation was had between feeder switchboard operator and family. They have decided on comfort care once all family arrives
critical care time 30 minutes
[2023-11-25] MEDS: MERREM 1000 MG IV (15:56)
[2023-11-25] MEDS: STERILE WATER FOR INJECTION 20 ML IV (15:56)
--- NOTE | 2023-11-25 16:10 | W.PN.UPDATE ---
Update Note
Progress Note Update
Update:
Family has now decided on comfort measures, team updated
They will be visiting, more family to come, and let us know when ready
[2023-11-25 16:21] LABS: Glucose - Point of Care 355 mg/dl (70-99)
--- NOTE | 2023-11-25 16:40 | PTCARENOTE ---
Family ready to transition to comfort. Dr. Frank and Dr. Peguero notified. Fentanyl bolus administered as ordered. Family is aware of the withdrawal process. All questions answered. Will continue to provide supportive care.
[2023-11-25] MEDS: NOVOLOG FLEXPEN-LOW RESISTANCE SC (17:26)
--- NOTE | 2023-11-25 18:32 | RESPNOTE ---
17:55 extubated as per comfort measures order.
--- NOTE | 2023-11-25 18:36 | PTCARENOTE ---
Fentanyl administered. RR slow. Rattling respirations. Family remains at the bedside. Continuing supportive care.
--- NOTE | 2023-11-25 18:53 | PTCARENOTE ---
Asystole. Evan ROUSE notified. Family remains at the bedside.
--- NOTE | 2023-11-25 19:22 | W.PN.DEATH ---
Pronouncement of
-
Called to see patient to pronounce.
No spontaneous heart tones or respirations noted.
Patient not responsive to verbal stimuli.
Patient is pronounced .
Time of : 18:53
Date of : 11/25/23
Cause of : Multiple system failure failure due septic shock and bilateral acute on subacute subdural hematomas
Family Notified: Yes
--- NOTE | 2023-11-25 20:41 | PTCARENOTE ---
post mortem care done, GOL was notified by previous shift, no belongings w/ pt, to meri
--- NOTE | 2023-11-26 17:06 | W.DCSUMMARY ---
Discharge Summary
Discharge Data
Date of Admission: 11/24/23
Date of Discharge: 11/25/23
-
Pending Results: No
Hospital Course
primary diagnosis:
Septic shock
Acute hypoxic hypercapnic respiratory failure needing intubation
Bilateral subdural hematomas-spontaneous
acute transaminitis suspected shock related
Secondary diagnosis:
End-stage renal disease on hemodialysis
Coronary artery disease
Chronic heart failure with midrange EF
Paroxysmal atrial fibrillation
myelofibrosis
Hospital course:
patient with complex medical history as above presented with shortness of breath and noted to be in acute hypoxic hypercapnic respiratory failure needing intubation.
He has noted to be in septic shock-he had a febrile illness with lactic acidosis and severe hypotension requiring multiple pressors. Patient had a prior echo with low normal EF. He was put on broad-spectrum antibiotics and was seen by ID. He also
has underlying myelofibrosis and he was on treatments which were discontinued because of concerns of infection.
He remains on the ventilator support. He had only part of his hemodialysis before coming to the hospital. With his severe septic shock he could not be dialyzed further.
There was concerned about his change in mental status and a CT picked up bilateral subdural hematomas which were felt spontaneous based on the history. He had reversal of INR with medication. Was seen by neurosurgery and the family wanted to hold
on any neurosurgical interventions. He apparently has CAD and was advised a open heart surgery but had declined it ;keeping that mind the family did feels he would want to have neurosurgery and did not want to pursue further any surgical
interventions.
He also has myelofibrosis with anemia.
With current critical situation with septic shock and respiratory failure and bilateral subdural hematomas and in keeping with this chronic multiple comorbidities ,family made a decision to transition into comfort measures and was extubated today
and today.
Consultants on board:
Pulmonary Dr. De La Garza
Neurology Mark Diaz
Infectious disease Maggi Renteria
Neurosurgery-Eileen Hui
nephrology-Diogo Jacobson
Discharge Plan
-
Patient Disposition:
Date/Time
Date/Time: 11/25/23 18:53
Discharge Date and Time
Discharge Date/Time: 11/25/23 18:53
Print Language: TONGAN
== END 2023-11-25 18:53 | disposition expired | DRG 871 ==
LOC: ICU 17:29
PROVIDERS: Internal Medicine; Nurse Practitioner Family; Radiology Diagnostic Radiology; ADMITTING PHYSICIAN Internal Medicine; ATTENDING PHYSICIAN Internal Medicine; CONSULT PHYSICIAN Internal Medicine Infectious Disease; CONSULT PHYSICIAN Internal Medicine Pulmonary Disease; CONSULT PHYSICIAN Neurological Surgery; CONSULT PHYSICIAN Specialist; CONSULT PHYSICIAN Student in an Organized Health Care Education/Training Program; EMERGENCY PHYSICIAN Emergency Medicine; FAMILY PHYSICIAN Family Medicine; OTHER PHYSICIAN Specialist
PROC: 0BH17EZ Insertion of Endotracheal Airway into Trachea, Via Natural or Artificial Opening (ICD-10-PCS; 2023-11-24)
PROC: 5A1935Z Respiratory Ventilation, Less than 24 Consecutive Hours (ICD-10-PCS; 2023-11-24)
PROC: 0D9670Z Drainage of Stomach with Drainage Device, Via Natural or Artificial Opening (ICD-10-PCS; 2023-11-24)
PROC: 5A09357 Assistance with Respiratory Ventilation, Less than 24 Consecutive Hours, Continuous Positive Airway Pressure (ICD-10-PCS; 2023-11-24)
PROC: 02HV33Z Insertion of Infusion Device into Superior Vena Cava, Percutaneous Approach (ICD-10-PCS; 2023-11-25)
DX: A41.9 Sepsis, unspecified organism (principal); I50.23 Acute on chronic systolic (congestive) heart failure; J96.01 Acute respiratory failure with hypoxia; N18.6 End stage renal disease; J18.9 Pneumonia, unspecified organism; K72.00 Acute and subacute hepatic failure without coma; R65.21 Severe sepsis with septic shock; J96.02 Acute respiratory failure with hypercapnia; I13.2 Hypertensive heart and chronic kidney disease with heart failure and with stage 5 chronic kidney disease, or end stage renal disease; E87.20 Acidosis, unspecified; D75.81 Myelofibrosis; C91.10 Chronic lymphocytic leukemia of B-cell type not having achieved remission; E87.1 Hypo-osmolality and hyponatremia; Z51.5 Encounter for palliative care; E11.22 Type 2 diabetes mellitus with diabetic chronic kidney disease; N40.0 Benign prostatic hyperplasia without lower urinary tract symptoms; J44.9 Chronic obstructive pulmonary disease, unspecified; I48.0 Paroxysmal atrial fibrillation; I25.10 Atherosclerotic heart disease of native coronary artery without angina pectoris; G47.33 Obstructive sleep apnea (adult) (pediatric); D47.2 Monoclonal gammopathy; D63.8 Anemia in other chronic diseases classified elsewhere; Z87.891 Personal history of nicotine dependence; Z86.73 Personal history of transient ischemic attack (TIA), and cerebral infarction without residual deficits; Z88.8 Allergy status to other drugs, medicaments and biological substances; Z79.82 Long term (current) use of aspirin; Z79.4 Long term (current) use of insulin; Z79.84 Long term (current) use of oral hypoglycemic drugs; Z79.51 Long term (current) use of inhaled steroids; Z11.52 Encounter for screening for COVID-19
CPT/HCPCS: 31500; 36600; 70450; 71045; 80053; 80069; 80076; 80202; 82248; 82805; 82947; 82962; 83605; 83735; 84100; 84478; 84484; 85025; 85384; 85610; 85730; 87040; 87502; 87641; 87811; 93005; 94002; 94003; 94640; 94660; 96365; 96375; 99291; J2185; J7168